=== PATIENT | female | born 1970 | race Caucasian/White ===

== ENCOUNTER 2016-07-05 19:41 | Inpatient (IN) | payer MEDICARE, OTHER ==
[2016-07-05 21:44] LABS: CH 30.9; CHCM 33.8; HDW 3.17; HGB 11.3 gm/dL (11.4-16.0); MCH 30.5 pg (25.0-35.0); MCHC 33.2 g/dL (31.0-37.0); MCV 91.8 fL (80.0-100.0); RDW 14.7 % (11.5-15.5); WBC 6.5 k/uL (3.8-10.6)
[2016-07-05 21:54] LABS: ALT 25 U/L (9-52); AST 35 U/L (14-36); Alkaline Phosphatase 119 U/L (38-126); Anion Gap 8 mmol/L; Blood Urea Nitrogen 11 mg/dL (7-17); Calcium 9.5 mg/dL (8.4-10.2); Carbon Dioxide 34 mmol/L (22-30); Chloride 97 mmol/L (98-107); Glucose 87 mg/dL (74-99); Non-African American GFR(MDRD) 56 (>60 ml/min/1.73 sqM); Sodium 139 mmol/L (137-145); Total Bilirubin 0.7 mg/dL (0.2-1.3); Total Protein 6.2 g/dL (6.3-8.2)
[2016-07-05 21:57] LABS: Potassium 2.9 mmol/L (3.5-5.1)
[2016-07-05] MEDS ORDERED: POTASSIUM CHLORIDE ER 20 MEQ TAB.ER PO STA (22:39)
[2016-07-05] MEDS ORDERED: ACETAMINOPHEN TAB 325 MG TAB PO PRN (22:46)
[2016-07-05] MEDS ORDERED: NALOXONE 0.4 MG/ML 1 ML VIAL IV PRN (22:46)
--- NOTE | 2016-07-05 22:46 | ED ---
General Adult HPI - General Chief complaint: Skin/Abscess/Foreign Body Stated complaint: Rash Time Seen by Provider: 07/05/16 21:50 Source: patient, EMS, RN notes reviewed Mode of arrival: EMS Limitations: no limitations - History of Present Illness Initial comments: Patient is a pleasant 46-year-old female presenting to the emergency department with concerns regarding rash. Patient is a poor historian. Patient states rash has come and gone for years. Patient plays of discomfort associated with this. Patient states she had a fever earlier today. Patient is nonambulatory secondary to weight and knee problems. - Related Data Home Medications Medication Instructions Recorded Confirmed Albuterol Nebulized [Ventolin 2.5 mg INHALATION RT-TID 08/17/14 07/05/16 Nebulized] Folic Acid 1 mg PO HS 10/14/14 07/05/16 Cyanocobalamin [Vitamin B-12] 500 mcg PO HS 06/06/15 07/05/16 Cranberry Conc/C/Bacill Coag 1 tab PO DAILY 07/13/15 07/05/16 [Cranberry Tablet] Na Phos,M-B/Na Phos,Di-Ba [Fleet 133 ml RECTAL DAILY PRN 07/13/15 07/05/16 Adult] Potassium Chloride [K-Tab ER] 20 meq PO BID 07/13/15 07/05/16 Sennosides-Docusate Sodium 2 tab PO HS 07/13/15 07/05/16 [Senokot-S] Previous Rx's Medication Instructions Recorded Bisacodyl [Dulcolax] 5 mg PO DAILY PRN #0 tablet.dr 06/09/15 Cyclobenzaprine [Flexeril] 10 mg PO BID tab 06/09/15 Famotidine [Pepcid] 20 mg PO DAILY tab 06/09/15 Furosemide [Lasix] 40 mg PO BID@0900,1600 tab 06/09/15 buPROPion HCL [Wellbutrin] 100 mg PO BID #60 tab 06/09/15 Ascorbic Acid [Vitamin C] 500 mg PO DAILY tab 07/15/15 Nystatin 100,000 Unit/gm Powd 1 applic TOPICAL TID applic 07/15/15 [Mycostatin Powder] Oxymorphone HCl [Opana ER] 40 mg PO Q8HR #90 tab.er.12h 07/15/15 Pregabalin [Lyrica] 75 mg PO HS #30 cap 07/15/15 cefTRIAXone [Rocephin] 2,000 mg IVPB HS #18 vial 07/15/15 oxyCODONE HCL/ACETAMINOPHEN 1 tab PO Q4H PRN #90 tablet 07/15/15 [Endocet 10-325 mg] Allergies Allergy/AdvReac Type Severity Reaction Status Date / Time aspirin Allergy Unknown Verified 07/05/16 19:59 ciprofloxacin [From Cipro] Allergy Unknown Verified 07/05/16 19:59 ciprofloxacin HCl Allergy Unknown Verified 07/05/16 19:59 [From Cipro] levofloxacin [From Levaquin] Allergy Rash/Hives Verified 07/05/16 19:59 Penicillins Allergy Rash/Hives Verified 07/05/16 19:59 Review of Systems ROS Statement: Those systems with pertinent positive or pertinent negative responses have been documented in the HPI. ROS Other: All systems not noted in ROS Statement are negative. 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 complicated by a wrist drop and chronic contractures and muscle atrophy in the left upper extremity, complex regional pain syndrome, reflex sympathetic dystrophy, pancreatitis, morbid obesity, history of hemorrhagic cystitis, history of chronic pain, history of GI bleeds History of Any Multi-Drug Resistant Organisms: None Reported Past Surgical History: Appendectomy, Section, Cholecystectomy Additional Past Surgical History / Comment(s): bowel resection, breast reduction , bilateral ACL repair, left brachial tumor biopsy and lymph node removed Past Anesthesia/Blood Transfusion Reactions: No Reported Reaction Past Psychological History: No Psychological Hx Reported Additional Psychological History / Comment(s): PT SAW DR MALIK DEVRIES IN [facility](PAIN DR) [phone] AFIA TELLEZ . Smoking Status: Never smoker Past Alcohol Use History: None Reported Additional Past Alcohol Use History / Comment(s): Patient states that she is a lifelong nonsmoker. She denies any medical marijuana, marijuana or street drug or alcohol use. Patient lives at home with her and 2 sons that are 20 and 22 years of age. There is a cat in the home. Patient is currently residing at [facility] for rehab. Past Drug Use History: None Reported - Past Family History Daughter(s) Family Medical History: No Reported History (one daughter no major medical ) Father Family Medical History: Diabetes Mellitus Additional Family Medical History / Comment(s): GOUT- ANY OTHER HS UNK Mother Additional Family Medical History / Comment(s): of LUNG DISEASE General Exam Limitations: no limitations General appearance: alert, obese Eye exam: Present: normal appearance Neck exam: Present: normal inspection Respiratory exam: Present: normal lung sounds bilaterally Cardiovascular Exam: Present: regular rate, normal rhythm GI/Abdominal exam: Present: soft. Absent: tenderness Extremities exam: Present: normal inspection Neurological exam: Present: alert. Absent: motor sensory deficit Psychiatric exam: Present: normal affect, normal mood Skin exam: Present: rash (Patient has skin breakdown with erythema consistent with fungal rash with overlying cellulitis diffusely through the skin folds under the breasts and abdomen and legs. Patient also has a large area of cellulitis posterior right leg and buttocks with dry skin.) Course Vital Signs 07/05/16 19:53 Temperature 98.6 F Pulse Rate 96 Respiratory 20 Rate Blood Pressure 110/53 O2 Sat by Pulse 98 Oximetry Medical Decision Making - Medical Decision Making Case was discussed in detail with Dr. Nieto, who is familiar with and will admit his patient. He recommends Kefzol, nystatin powder, potassium replacement , Diflucan, and consult with Dr. Camilo. Patient does not meet sepsis criteria - Lab Data Result diagrams: 07/05/16 21:18 07/05/16 21:18 Lab Results 07/05/16 07/05/16 Range/Units 21:18 21:18 WBC 6.5 (3.8-10.6) k/uL RBC 3.70 L (3.80-5.40) m/uL Hgb 11.3 L (11.4-16.0) gm/dL Hct 34.0 (34.0-46.0) % MCV 91.8 (80.0-100.0) fL MCH 30.5 (25.0-35.0) pg MCHC 33.2 (31.0-37.0) g/dL RDW 14.7 (11.5-15.5) % Plt Count 167 (150-450) k/uL Sodium 139 (137-145) mmol/L Potassium 2.9 L* (3.5-5.1) mmol/L Chloride 97 L (98-107) mmol/L Carbon Dioxide 34 H (22-30) mmol/L Anion Gap 8 mmol/L BUN 11 (7-17) mg/dL Creatinine 1.06 H (0.52-1.04) mg/dL Est GFR (MDRD) Af Amer >60 (>60 ml/min/1.73 sqM) Est GFR (MDRD) Non-Af 56 (>60 ml/min/1.73 sqM) Glucose 87 (74-99) mg/dL Calcium 9.5 (8.4-10.2) mg/dL Total Bilirubin 0.7 (0.2-1.3) mg/dL AST 35 (14-36) U/L ALT 25 (9-52) U/L Alkaline Phosphatase 119 (38-126) U/L Total Protein 6.2 L (6.3-8.2) g/dL Albumin 3.0 L (3.5-5.0) g/dL Disposition Clinical Impression: Cellulitis, Hypokalemia Disposition: ADMITTED IP TO THIS HOSP
[2016-07-05] MEDS ORDERED: FLUCONAZOLE 100 MG TAB PO ONE (22:49)
[2016-07-05 23:11] LABS: Appearance,Urine Clear (Clear); Bilirubin,Urine Negative (Negative); Glucose,Urine (UA) Negative (Negative); Ketones,Urine Negative (Negative); Leukocyte Esterase,Urine Negative (Negative); Nitrite,Urine Negative (Negative); PH, Urine 7.5 (5.0-8.0); Protein,Urine Negative (Negative); Specific Gravity,Urine 1.009 (1.001-1.035); UA Billing (MACRO vs. MICRO) CHEM
[2016-07-06] MEDS ORDERED: 0.9% NACL WITH KCL 20 MEQ/L 1,000 ML IV SCH
[2016-07-06] MEDS: ceFAZolin 2 GM in SODIUM CHLORIDE 0.9% 100 ML IVPB SCH ×4 (00:28→23:39)
[2016-07-06] MEDS: HEPARIN SODIUM,PORCINE 5,000 UNIT/ML 1 ML VIAL SQ SCH ×4 (00:28→23:39)
[2016-07-06] MEDS: NYSTATIN 100,000 UNIT/GM POWD 15 GM TOPICAL SCH ×3 (00:28→21:41)
[2016-07-06] MEDS ORDERED: BISACODYL 5 MG TABLET.DR PO PRN (00:44)
[2016-07-06] MEDS ORDERED: ALBUTEROL NEBULIZED 2.5 MG/3 ML INHALATION PRN (00:44)
[2016-07-06 00:58] VITALS: BMI 60.6
[2016-07-06] MEDS ORDERED: Potassium Replacement Protocol 1 EACH MISC MISCELLANE PRN (01:13)
[2016-07-06] MEDS: CYCLOBENZAPRINE 10 MG TAB PO SCH ×4 (01:27→21:41)
[2016-07-06] MEDS: OXYMORPHONE HCL 5 MG TABLET PO SCH ×4 (01:27→18:41)
[2016-07-06] MEDS: MIRTAZAPINE 15 MG TAB PO SCH ×2 (01:27→21:41)
[2016-07-06] MEDS: POTASSIUM CHLORIDE ER 20 MEQ TAB.ER PO SCH ×5 (02:28→21:41)
[2016-07-06] MEDS: oxyCODONE-APAP 10-325MG 1 EACH TAB PO PRN ×3 (05:08→21:45)
[2016-07-06] MEDS: FUROSEMIDE 40 MG TAB PO SCH ×2 (08:54→21:40)
[2016-07-06] MEDS: MULTIVITAMINS, THERA 1 EACH TAB PO SCH (08:54)
[2016-07-06] MEDS: PANTOPRAZOLE 40 MG TABLET PO SCH (08:54)
[2016-07-06] MEDS: ASCORBIC ACID 500 MG TAB PO SCH ×2 (08:55→21:40)
[2016-07-06] MEDS: LOSARTAN 50 MG TAB PO SCH (08:55)
[2016-07-06] MEDS: buPROPion 100 MG TAB PO SCH ×2 (08:55→21:41)
[2016-07-06] MEDS ORDERED: POTASSIUM CHLORIDE ER 20 MEQ TAB.ER PO SCH (10:00)
[2016-07-06 10:21] LABS: Anion Gap 10 mmol/L; Blood Urea Nitrogen 11 mg/dL (7-17); Calcium 9.9 mg/dL (8.4-10.2); Carbon Dioxide 29 mmol/L (22-30); Chloride 104 mmol/L (98-107); Glucose 79 mg/dL (74-99); Non-African American GFR(MDRD) >60 (>60 ml/min/1.73 sqM); Potassium 3.6 mmol/L (3.5-5.1); Sodium 143 mmol/L (137-145)
[2016-07-06] MEDS ORDERED: TRIAMCINOLONE ACET 0.1% OINTMENT 15 GM TUBE TOPICAL SCH (11:15)
[2016-07-06] MEDS: TRIAMCINOLONE ACET 0.1% OINTMENT 80 GM TUBE TOPICAL SCH ×2 (12:25→21:41)
[2016-07-06] MEDS: methylPREDNISolone SOD SUCCI 40 MG/ML 1 ML VIAL IV SCH ×3 (12:26→23:39)
--- NOTE | 2016-07-06 13:22 | P.HPIM ---
History of Present Illness H&P Date: 07/06/16 Chief Complaint: Severe psoriasis with cellulitis. 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 subsequent she was discharged and she has been home with her for quite sometimes now, patient developed to have an increased rash in her bilateral lower extremity buttock area as well as in between the skin folds with significant irritation to the left buttock areas well and she has been declining and not able to care for herself over the last few weeks since [place] time she stated she ended up coming to the emergency department yesterday at [facility] because of significant rash and she was admitted to the hospital because of severe psoriasis with the element of' cellulitis and skin irritation along with intertrigo in between the skin folds. Patient was seen in consultation by Dr. Camilo she was started on IV antibiotic in the form of Ancef 1 g IV piggyback every 6 hours, she was placed on Diflucan 200 mg orally once every day, we will start the patient on Solu-Medrol 40 mg IV push every 8 hours, we will apply betamethasone cream twice every day to affected area and the we will obtain dermatology consultation. Review of Systems Constitutional: Reports chronic pain, Reports lethargy, Reports malaise, Reports weakness, Reports weight gain, Denies anorexia, Denies chronic headaches Eyes: denies blurred vision, denies bulging eye, denies decreased vision, denies diplopia Ears: deny: decreased hearing Ears, nose, mouth and throat: Denies dysphagia, Denies neck fullness/pressure, Denies neck lump, Denies swelling in throat, Denies sore throat Cardiovascular: Denies chest pain, Denies dyspnea on exertion, Denies edema, Denies high blood pressure, Denies rapid heart beat, Denies shortness of breath , Denies syncope Respiratory: Reports sleep apnea, Reports snoring, Denies congestion, Denies cough, Denies cough with sputum, Denies home oxygen, Denies wheezing Gastrointestinal: Denies abdominal pain, Denies bloating, Denies BRBPR, Denies change in bowel habits, Denies heartburn, Denies hematemesis, Denies melena, Denies nausea, Denies vomiting Genitourinary: Reports dysuria, Reports nocturia Musculoskeletal: Reports low back pain, Reports shooting arm pain, Denies myalgias Musculoskeletal: left: hand pain, hand stiffness, hand swelling, shoulder stiffness, wrist pain, wrist stiffness, wrist swelling, absent: ankle pain, ankle stiffness, ankle swelling, elbow pain, elbow stiffness, elbow swelling, foot pain, foot stiffness, foot swelling, hip pain, hip stiffness, hip swelling , knee pain, knee stiffness, knee swelling, shoulder pain Integumentary: Reports rash (There is an erythematous base with a similar rash in the bilateral buttock areas, behind the knees, and the skin folds.), Reports sores, Reports wounds (Left buttock area), Denies pruritus Neurological: Reports motor disturbance, Reports sensory deficit, Reports tingling, Denies numbness, Denies weakness Psychiatric: Denies anxiety, Denies depression Endocrine: Denies fatigue, Denies weight change Past Medical History Past Medical History: Asthma, COPD, Fibromyalgia, Hyperlipidemia, Osteoarthritis (OA), Renal Disease, Sleep Apnea/CPAP/BIPAP Additional Past Medical History / Comment(s): kidney stones, 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 complicated by a wrist drop and chronic contractures and muscle atrophy in the left upper extremity, complex regional pain syndrome, reflex sympathetic dystrophy, pancreatitis, morbid obesity, history of hemorrhagic cystitis, history of chronic pain, history of GI bleeds History of Any Multi-Drug Resistant Organisms: None Reported Past Surgical History: Appendectomy, Section, Cholecystectomy Additional Past Surgical History / Comment(s): bowel resection, breast reduction , bilateral ACL repair, left brachial tumor biopsy and lymph node removed, bilateral knee surgery Past Anesthesia/Blood Transfusion Reactions: No Reported Reaction Past Psychological History: No Psychological Hx Reported Additional Psychological History / Comment(s): PT SAW DR MALIK DEVRIES IN [facility](PAIN DR) [phone] AFIA TELLEZ . Smoking Status: Never smoker Past Alcohol Use History: None Reported Additional Past Alcohol Use History / Comment(s): Patient states that she is a lifelong nonsmoker. She denies any medical marijuana, marijuana or street drug or alcohol use. Patient lives at home with her and 2 sons that are 20 and 22 years of age. There is a cat in the home. Patient is currently residing at [facility] for rehab. Past Drug Use History: None Reported - Past Family History Daughter(s) Family Medical History: No Reported History Father Family Medical History: Diabetes Mellitus Additional Family Medical History / Comment(s): GOUT- ANY OTHER HS UNK Mother Additional Family Medical History / Comment(s): of LUNG DISEASE Medications and Allergies Home Medications Medication Instructions Recorded Confirmed Type Albuterol Nebulized [Ventolin 2.5 mg INHALATION RT-Q6H PRN 08/17/14 07/06/16 History Nebulized] Cranberry Conc/C/Bacill Coag 1 tab PO DAILY 07/13/15 07/06/16 History [Cranberry Tablet] Potassium Chloride [K-Tab ER] 20 meq PO BID 07/13/15 07/06/16 History Cyclobenzaprine [Flexeril] 10 mg PO TID 07/05/16 07/06/16 History Furosemide [Lasix] 40 mg PO BID 07/05/16 07/06/16 History Losartan Potassium 100 mg PO DAILY 07/05/16 07/06/16 History Mirtazapine [Remeron] 15 mg PO HS 07/05/16 07/06/16 History Multivitamins, Thera [Multivitamin] 1 tab PO DAILY 07/05/16 07/06/16 History Oxymorphone HCl [Opana ER] 40 mg PO Q8H 07/05/16 07/06/16 History oxyCODONE HCL/ACETAMINOPHEN 1 tab PO Q6H PRN 07/05/16 07/06/16 History [Endocet 10-325 mg] Ascorbic Acid [Vitamin C] 500 mg PO BID 07/06/16 07/06/16 History Allergies Allergy/AdvReac Type Severity Reaction Status Date / Time aspirin Allergy Unknown Verified 07/05/16 19:59 ciprofloxacin [From Cipro] Allergy Swelling Verified 07/06/16 00:30 ciprofloxacin HCl Allergy Swelling Verified 07/06/16 00:30 [From Cipro] levofloxacin [From Levaquin] Allergy Rash/Hives Verified 07/05/16 19:59 Penicillins Allergy Rash/Hives Verified 07/05/16 19:59 Physical Exam Vitals: Vital Signs Temp Pulse Pulse Resp BP BP Pulse Ox 07/06/16 07:00 98.5 F 82 18 121/53 92 L 07/05/16 23:23 99.3 F 96 20 128/64 96 Intake and Output 07/05/16 07/06/16 07/06/16 22:59 06:59 14:59 Other: Voiding Method Bedpan # Voids 0 Weight 140.84 kg - Constitutional General appearance: mild distress, obese - EENT Eyes: anicteric sclerae, PERRLA, no ptosis, no scleral icterus, normal appearance ENT: normal oropharynx, no thrush, no tonsillar exudates Ears: bilateral: normal - Neck Neck: no lymphadenopathy, normal ROM, no rigidity, no stridor, no thyromegaly Carotids: bilateral: upstroke normal Thyroid: bilateral: normal size - Respiratory Respiratory: bilateral: diminished, negative: dullness, rales, rhonchi, wheezing , prolonged expiration, prolonged inspiration - Cardiovascular Rhythm: regular Heart sounds: normal: S1, S2 Abnormal Heart Sounds: no systolic murmur, no diastolic murmur, no S3 Gallop, no S4 Gallop - Gastrointestinal General gastrointestinal: normal bowel sounds, soft, no splenomegaly, no tenderness, no umbilical hernia, no ventral hernia - Integumentary Integumentary: rash (Erythema base with a similar rash involving bilateral lower extremity and in between the skin folds.) - Neurologic Neurologic: CNII-XII intact, focal deficits - Musculoskeletal Musculoskeletal: left sided weakness - Psychiatric Psychiatric: A&O x's 3, appropriate affect, intact judgment & insight Results CBC & Chem 7: 07/05/16 21:18 07/06/16 09:34 Labs: Abnormal Lab Results - Last 24 Hours (Table) 07/06/16 Range/Units 00:24 Potassium 2.9 L* (3.5-5.1) mmol/L Thrombosis Risk Factor Assmnt - DVT/VTE Prophylaxis DVT/VTE Prophylaxis: Pharmacologic Prophylaxis ordered, Mechanical Prophylaxis ordered - Choose All That Apply Any of the Below Risk Factors Present?: Yes Each Factor Represents 1 point: Age 41-60 years, Obesity (BMI >25), Swollen legs (current) Other Risk Factors: No Other congenital or acquired thrombophilia - If yes, enter type in comment: No Thrombosis Risk Factor Assessment Total Risk Factor Score: 3 Thrombosis Risk Factor Assessment Level: Moderate Risk Assessment and Plan Plan: Assessment and plan: 1. Diffuse severe psoriasis with cellulitis of bilateral buttocks and lower extremities. Start Ancef 2 g IV piggyback every 6 hours, apply betamethasone cream twice every day, apply anterior dry, start Diflucan 200 mg orally once every day, obtain infectious disease consultation Adipex, obtain dermatology consultation from Dr. Farris, start Solu-Medrol 40 mg IV push every 8 hours. 2. History of hydronephrosis. Was under the care of urology in the past. 3. Supermorbid obesity with BMI 72 with WEI and OHS will continue with CPAP. 4. History of Schwanoma of the left brachial plexus with resultant chronic regional pain syndrome (CRPS).will continue with current pain management with Opana ER and percocet for breakthrough pain. 5. History of Fibromyalgia. Continue current pain management. Continue Flexeril 10 mg orally 3 times every day. 6. Chronic anemia will check iron studies. 7. Depression.will continue with bupropion 100 mg po bid and Remeron 50 mg orally bedtime. 8. Recurrent UTI. We will check urinalysis. 9. 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 10.Chronic pain syndrome.will continue with current pain management. 11.VT prophylaxis.will continue with heparin 5000 units subcutaneously every 8 hours. 12. GI prophylaxis.will continue with protonix 40 mg po daily. 13.Full code. 14.Admitted to inpatient estimated length of stay 3 days.
--- NOTE | 2016-07-06 15:16 | XR ---
EXAMINATION TYPE: XR chest 2V DATE OF EXAM: 07/06/2016 3:11 PM COMPARISON: Prior chest x-ray 12 July 2015 HISTORY: Extended-care facility placement TECHNIQUE: Frontal and lateral views of the chest are obtained. FINDINGS: The heart remains enlarged. No pneumothorax or pleural effusion. Minimal patchy basilar de nsity may reflect atelectasis rather than pneumonia. Exam is somewhat technically limited due to ute ent body habitus. IMPRESSION: Cardiomegaly. Possible basilar atelectasis, correlate to exclude pneumonia.
--- NOTE | 2016-07-06 19:58 | P.CONS ---
History of Present Illness - Reason for Consult Consult date: 07/06/16 - Chief Complaint Weakness - History of Present Illness This is a 46 year-old patient who is currently residing at [facility] for physical therapy and rehabilitation. She had hospitalization at [facility] last year at which time she was treated for acute on chronic respiratory failure secondary to hypercapnic respiratory failure from morbid obesity obesity hypoventilation syndrome with pickwickian syndrome with history of bronchial asthma and acute on chronic diastolic heart failure. Patient was also found at that time to have an enterococcus UTI and was discharged to the detention with doxycycline. Patient developed urinary frequency and dysuria along with a fever 101.3 and was started on Ceftin 500 mg twice daily. However, patient became tachypneic with mental status changes and temperature of 102.3 with tachycardia and was transferred to [facility] emergency center for evaluation. On presentation, her temperature was 101.5 and leukocytosis at 12.8. White count is now at 10.8 GFR is greater than 60. Hemoglobin noted 9.8. Total bilirubin is 1.9 with normal liver function tests. Albumin 2.8. Urinalysis on this admission as well as the previous outpatient specimen positive for urinary tract infection. Urine culture from last year positive for Proteus mirabilis resistant to Macrodantin and tetracycline. Subsequently, patient's blood culture returned positive for gram-negative rods. 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 Apparently patient had been discharged from the extended care facility with the care of her family in the home. There apparently is a as well as some caregivers. She utilizes a slide board to get from bed to chair and commode does not have a Christopher lift. Relates that she started having increasing difficulties with her skin and generalized malaise no concerns to sepsis was admitted to hospital. Infectious disease consultation was requested. Review of Systems Constitutional: Feels poorly overall. He has fatigue chills poor appetite but no rigors. Eyes: denies blurred vision, denies pain Ears, nose, mouth and throat: Denies headache, Denies sore throat Cardiovascular: Denies chest pain, Denies shortness of breath Respiratory: Denies cough Gastrointestinal: Reports nausea, Denies abdominal pain, Denies diarrhea, Denies vomiting Genitourinary: Reports no dysuria, Reports urgency, Reports urinary frequency, Denies hematuria Musculoskeletal: Denies myalgias Integumentary: Has extensive psoriatic rash that is now much worse and erythematous Neurological: Denies numbness, Denies weakness Psychiatric: Denies anxiety, Denies depression Endocrine: Denies fatigue, Denies weight change Past Medical History Past Medical History: Asthma, COPD, Fibromyalgia, Hyperlipidemia, Osteoarthritis (OA), Renal Disease, Sleep Apnea/CPAP/BIPAP Additional Past Medical History / Comment(s): kidney stones, 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 complicated by a wrist drop and chronic contractures and muscle atrophy in the left upper extremity, complex regional pain syndrome, reflex sympathetic dystrophy, pancreatitis, morbid obesity, history of hemorrhagic cystitis, history of chronic pain, history of GI bleeds History of Any Multi-Drug Resistant Organisms: None Reported Past Surgical History: Appendectomy, Section, Cholecystectomy Additional Past Surgical History / Comment(s): bowel resection, breast reduction , bilateral ACL repair, left brachial tumor biopsy and lymph node removed, bilateral knee surgery Past Anesthesia/Blood Transfusion Reactions: No Reported Reaction Past Psychological History: No Psychological Hx Reported Additional Psychological History / Comment(s): PT SAW DR MALIK DEVRIES IN [facility](PA[address] DR) [phone] AFIA TELLEZ . Smoking Status: Never smoker Past Alcohol Use History: None Reported Additional Past Alcohol Use History / Comment(s): Patient states that she is a lifelong nonsmoker. She denies any medical marijuana, marijuana or street drug or alcohol use. Patient lives at home with her and 2 sons that are 20 and 22 years of age. There is a cat in the home. Patient is currently residing at [facility] for rehab. Past Drug Use History: None Reported - Past Family History Daughter(s) Family Medical History: No Reported History Father Family Medical History: Diabetes Mellitus Additional Family Medical History / Comment(s): GOUT- ANY OTHER HS UNK Mother Additional Family Medical History / Comment(s): of LUNG DISEASE Medications and Allergies Home Medications and Allergies Comment(s): Current Medications Acetaminophen (Tylenol Tab) 650 mg PO Q6HR PRN PRN Reason: Mild Pain or Fever > 100.5 Last Admin: 07/05/16 23:23 Dose: 650 mg Albuterol Sulfate (Ventolin Nebulized) 2.5 mg INHALATION RT-Q6H PRN PRN Reason: Shortness Of Breath Ascorbic Acid (Vitamin C) 500 mg PO BID [facility] Last Admin: 07/06/16 08:55 Dose: 500 mg Bisacodyl (Dulcolax) 5 mg PO DAILY PRN PRN Reason: Constipation Bupropion HCl (Wellbutrin) 100 mg PO BID [facility] Last Admin: 07/06/16 08:55 Dose: 100 mg Cyclobenzaprine HCl (Flexeril) 10 mg PO TID [facility] Last Admin: 07/06/16 17:26 Dose: 10 mg Fluconazole (Diflucan) 150 mg PO HS [facility] Furosemide (Lasix) 40 mg PO BID [facility] Last Admin: 07/06/16 08:54 Dose: 40 mg Heparin Sodium (Porcine) (Heparin) 5,000 unit SQ Q8HR [facility] Last Admin: 07/06/16 17:25 Dose: 5,000 unit Cefazolin Sodium 2 gm/ Sodium (Chloride) 100 mls @ 100 mls/hr IVPB Q8HR [facility] Last Admin: 07/06/16 17:25 Dose: 100 mls/hr Losartan Potassium (Cozaar) 100 mg PO DAILY [facility] Last Admin: 07/06/16 08:55 Dose: 100 mg Methylprednisolone Sodium Succinate (Solu-Medrol) 40 mg IV Q8HR [facility] Last Admin: 07/06/16 17:26 Dose: 40 mg Mirtazapine (Remeron) 15 mg PO HS [facility] Last Admin: 07/06/16 01:27 Dose: 15 mg Miscellaneous Information (Potassium Per Protocol) 1 each MISCELLANE DAILY PRN ; Protocol PRN Reason: Per Protocol Multivitamins (Theragran) 1 each PO DAILY [facility] Last Admin: 07/06/16 08:54 Dose: 1 each Naloxone HCl (Narcan) 0.2 mg IV Q2M PRN PRN Reason: Opioid Reversal Nystatin (Mycostatin Powder) 1 applic TOPICAL BID [facility] Last Admin: 07/06/16 09:38 Dose: 1 applic Oxycodone/Acetaminophen (Percocet 10-325) 1 each PO Q6H PRN PRN Reason: Moderate Pain Last Admin: 07/06/16 13:57 Dose: 1 each Oxymorphone HCl (Opana) 30 mg PO Q6H [facility] Last Admin: 07/06/16 18:41 Dose: 30 mg Pantoprazole Sodium (Protonix) 40 mg PO DAILY [facility] Last Admin: 07/06/16 08:54 Dose: 40 mg Potassium Chloride (K-Dur 20) 20 meq PO BID [facility] Last Admin: 07/06/16 11:58 Dose: Not Given Triamcinolone Acetonide (Kenalog) 1 applic TOPICAL BID [facility] Last Admin: 07/06/16 12:25 Dose: 1 applic Home Medications Medication Instructions Recorded Confirmed Type Albuterol Nebulized [Ventolin 2.5 mg INHALATION RT-Q6H PRN 08/17/14 07/06/16 History Nebulized] Cranberry Conc/C/Bacill Coag 1 tab PO DAILY 07/13/15 07/06/16 History [Cranberry Tablet] Potassium Chloride [K-Tab ER] 20 meq PO BID 07/13/15 07/06/16 History Cyclobenzaprine [Flexeril] 10 mg PO TID 07/05/16 07/06/16 History Furosemide [Lasix] 40 mg PO BID 07/05/16 07/06/16 History Losartan Potassium 100 mg PO DAILY 07/05/16 07/06/16 History Mirtazapine [Remeron] 15 mg PO HS 07/05/16 07/06/16 History Multivitamins, Thera [Multivitamin] 1 tab PO DAILY 07/05/16 07/06/16 History Oxymorphone HCl [Opana ER] 40 mg PO Q8H 07/05/16 07/06/16 History oxyCODONE HCL/ACETAMINOPHEN 1 tab PO Q6H PRN 07/05/16 07/06/16 History [Endocet 10-325 mg] Ascorbic Acid [Vitamin C] 500 mg PO BID 07/06/16 07/06/16 History Allergies Allergy/AdvReac Type Severity Reaction Status Date / Time aspirin Allergy Unknown Verified 07/05/16 19:59 ciprofloxacin [From Cipro] Allergy Swelling Verified 07/06/16 00:30 ciprofloxacin HCl Allergy Swelling Verified 07/06/16 00:30 [From Cipro] levofloxacin [From Levaquin] Allergy Rash/Hives Verified 07/05/16 19:59 Penicillins Allergy Rash/Hives Verified 07/05/16 19:59 Physical Exam Vitals: Vital Signs Temp Pulse Pulse Resp BP BP BP 07/06/16 14:08 99.2 F 88 20 118/82 07/06/16 07:00 98.5 F 82 18 121/53 07/05/16 23:23 99.3 F 96 20 128/64 Pulse Ox 07/06/16 14:08 95 07/06/16 07:00 92 L 07/05/16 23:23 96 Intake and Output 07/06/16 07/06/16 07/06/16 06:59 14:59 22:59 Intake Total 900 Balance 900 Intake: IV 800 0.9% NaCl with KCl 20 Meq 800 /l 1,000 ml @ 50 mls/hr IV .Q20H ISIAH Rx#: [id number] Intake, IV Titration 100 Amount ceFAZolin 2 gm In Sodium 100 Chloride 0.9% 100 ml @ 100 mls/hr IVPB Q8HR [facility]IA[facility] Rx#:[id number] Other: Voiding Method Bedpan # Voids 0 1 1 # Bowel Movements 0 0 Weight 140.84 kg Gen: This is a morbidly obese 46-year-old female with BMI of 53. Patient is slow to respond to questions but this is close to her baseline. HEENT: Head is atraumatic, normocephalic. Pupils equal, round. Sclerae is anicteric. Conjunctiva slightly pale. Mucous members of the mouth are very dry. Patient is edentulous. NECK: Short and thick. Supple. No JVD. No lymphadenopathy. No thyromegaly. LUNGS: Diminished bilaterally. No intercostal retractions. HEART: Regular rate and rhythm. Systolic murmur. ABDOMEN: Morbidly obese. Soft. Bowel sounds are present. No masses. Mild generalized tenderness. EXTREMITIES: No pedal edema. No calf tenderness. Dorsalis pedis +2 bilaterally. NEUROLOGICAL: Patient is awake, alert and oriented x3. Cranial nerves 2 through 12 are grossly intact. Bilateral hand deputy director of nursing are weak more so to the left secondary to complex regional pain syndrome. Generalized weakness noted. Skin: Patient has evidence of the extensive psoriasis involves her scalp as well as her face chest abdomen back upper and lower extremities. The skin is thickened. It is dry and plaque-like. There are some significant erythema especially in the lower extremities. No connie open lesions are seen on the upper or lower extremities. However with the nurse present she is rolled it has evidence of some pressure ulceration to her buttocks. Please see the nursing photography for the pictorial documentation of the bilateral buttocks stage III pressure ulcerations with some bleeding. It is tender to touch. She is obese and has many skin folds. At the base of the folds there is evidence of significant irritation on the abdominal wall and on the thighs there is evidence of weeping and tenderness in distinct erythema. Results CBC & Chem 7: 07/05/16 21:18 07/06/16 16:11 Labs: Abnormal Lab Results - Last 24 Hours (Table) 07/06/16 Range/Units 00:24 Potassium 2.9 L* (3.5-5.1) mmol/L Laboratory Results WBC 6.5 k/uL (3.8-10.6) 07/05/16 21:18 RBC 3.70 m/uL (3.80-5.40) L 07/05/16 21:18 Hgb 11.3 gm/dL (11.4-16.0) L 07/05/16 21:18 Hct 34.0 % (34.0-46.0) 07/05/16 21:18 MCV 91.8 fL (80.0-100.0) 07/05/16 21:18 MCH 30.5 pg (25.0-35.0) 07/05/16 21:18 MCHC 33.2 g/dL (31.0-37.0) 07/05/16 21:18 RDW 14.7 % (11.5-15.5) 07/05/16 21:18 Plt Count 167 k/uL (150-450) 07/05/16 21:18 Sodium 143 mmol/L (137-145) 07/06/16 09:34 Potassium 4.9 mmol/L (3.5-5.1) 07/06/16 16:11 Chloride 104 mmol/L (98-107) 07/06/16 09:34 Carbon Dioxide 29 mmol/L (22-30) 07/06/16 09:34 Anion Gap 10 mmol/L 07/06/16 09:34 BUN 11 mg/dL (7-17) 07/06/16 09:34 Creatinine 0.96 mg/dL (0.52-1.04) 07/06/16 09:34 Est GFR (MDRD) Af Amer >60 (>60 ml/min/1.73 sqM) 07/06/16 09:34 Est GFR (MDRD) Non-Af >60 (>60 ml/min/1.73 sqM) 07/06/16 09:34 Glucose 79 mg/dL (74-99) 07/06/16 09:34 Calcium 9.9 mg/dL (8.4-10.2) 07/06/16 09:34 Total Bilirubin 0.7 mg/dL (0.2-1.3) 07/05/16 21:18 AST 35 U/L (14-36) 07/05/16 21:18 ALT 25 U/L (9-52) 07/05/16 21:18 Alkaline Phosphatase 119 U/L (38-126) 07/05/16 21:18 Total Protein 6.2 g/dL (6.3-8.2) L 07/05/16 21:18 Albumin 3.0 g/dL (3.5-5.0) L 07/05/16 21:18 Urine Color Yellow 07/05/16 22:35 Urine Appearance Clear (Clear) 07/05/16 22:35 Urine pH 7.5 (5.0-8.0) 07/05/16 22:35 Ur Specific [place] 1.009 (1.001-1.035) 07/05/16 22:35 Urine Protein Negative (Negative) 07/05/16 22:35 Urine Glucose (UA) Negative (Negative) 07/05/16 22:35 Urine Ketones Negative (Negative) 07/05/16 22:35 Urine Blood Negative (Negative) 07/05/16 22:35 Urine Nitrate Negative (Negative) 07/05/16 22:35 Urine Bilirubin Negative (Negative) 07/05/16 22:35 Urine Urobilinogen 4.0 mg/dL (<2.0) 07/05/16 22:35 Ur Leukocyte Esterase Negative (Negative) 07/05/16 22:35 Microbiology 07/05/16 22:35 Urine,Catheterized Urine Culture - Preliminary Assessment and Plan (1) Psoriasis universalis Narrative/Plan: 46-year-old woman presents to [facility] increasing weakness. On evidence of significant hypokalemia and this is being addressed with multiple supplements. She has marked worsening of her skin with multiple areas that are open draining and very tender. Cultures are process. His first antibiotic therapy most recent cultures had Proteus which is a very susceptible organism and cefazolin 2 g IV piggyback every 8 hours being utilized which he gives treatment for routine skin pathogen such as strep and staph as well as her Proteus. The patient is in significant need of extensive bathing and showering. This will help reduce the amount of bioburden on her skin as well as a severe amount of scaling. Michelle will be attempted. Triamcinolone will be applied to the affected areas. 2 the very tender folds the [place] being placed as well as some antifungal powder. She has received oral antifungal therapy also. For the buttocks pressure ulcerations the thick zinc product is being applied twice per day and as needed . Air mattress requested Will evaluate her protein status and supplement as needed. Unclear if she follows with dermatology in the outpatient setting with her extensive disease concerned to potential other aggressive therapies may be indicated once she has improvement of underlying infectious problems. Status: Acute (2) Anemia Status: Acute (3) Hypokalemia Status: Acute (4) Schwannoma Status: Chronic
[2016-07-06] MEDS: FLUCONAZOLE 150 MG TAB PO SCH (21:41)
[2016-07-07] MEDS: OXYMORPHONE HCL 5 MG TABLET PO SCH ×4 (00:48→19:43)
[2016-07-07] MEDS: oxyCODONE-APAP 10-325MG 1 EACH TAB PO PRN ×3 (04:41→17:14)
[2016-07-07] MEDS: LOSARTAN 50 MG TAB PO SCH (07:35)
[2016-07-07] MEDS: ASCORBIC ACID 500 MG TAB PO SCH ×2 (07:35→21:09)
[2016-07-07] MEDS: methylPREDNISolone SOD SUCCI 40 MG/ML 1 ML VIAL IV SCH ×3 (07:35→23:16)
[2016-07-07] MEDS: PANTOPRAZOLE 40 MG TABLET PO SCH (07:35)
[2016-07-07] MEDS: HEPARIN SODIUM,PORCINE 5,000 UNIT/ML 1 ML VIAL SQ SCH ×3 (07:35→23:16)
[2016-07-07] MEDS: ceFAZolin 2 GM in SODIUM CHLORIDE 0.9% 100 ML IVPB SCH ×3 (07:35→23:16)
[2016-07-07] MEDS: TRIAMCINOLONE ACET 0.1% OINTMENT 80 GM TUBE TOPICAL SCH ×2 (07:36→21:10)
[2016-07-07] MEDS: CYCLOBENZAPRINE 10 MG TAB PO SCH ×3 (07:36→21:10)
[2016-07-07] MEDS: NYSTATIN 100,000 UNIT/GM POWD 15 GM TOPICAL SCH ×2 (07:36→21:10)
[2016-07-07] MEDS: buPROPion 100 MG TAB PO SCH ×2 (07:36→21:09)
[2016-07-07] MEDS: FUROSEMIDE 40 MG TAB PO SCH ×2 (07:36→21:09)
[2016-07-07] MEDS: POTASSIUM CHLORIDE ER 20 MEQ TAB.ER PO SCH ×2 (07:36→21:09)
[2016-07-07] MEDS: MULTIVITAMINS, THERA 1 EACH TAB PO SCH (07:36)
--- NOTE | 2016-07-07 16:20 | P.PN ---
Subjective This is a 46-year-old female one of my patient with a previous medical history significant for schwannoma status post resection and the left brachial plexus with resultant left wrist drop and chronic regional pain syndrome (CRPS).was hospitalized here at [facility] on June 06 2015 where she was admitted for acute respiratory hypoxemic and hypercarbic respiratory failure secondary to Pickwikian syndrome with sever obesity and obesity hupoventilation syndrome and was released to [facility] for physical therapy and rehabilitation subsequently the patient was rehospitalized at [facility] in 2015 because of acute to urinary tract infection with sepsis at that time she was seen by urology because of hydronephrosis which was treated with IV antibiotic subsequent she went to [facility] subsequent she was discharged and she has been home with her for quite sometimes now, patient developed to have an increased rash in her bilateral lower extremity buttock area as well as in between the skin folds with significant irritation to the left buttock areas well and she has been declining and not able to care for herself over the last few weeks since [place] time she stated she ended up coming to the emergency department yesterday at [facility] because of significant rash and she was admitted to the hospital because of severe psoriasis with the element of' cellulitis and skin irritation along with intertrigo in between the skin folds. Patient was seen in consultation by Dr. Camilo she was started on IV antibiotic in the form of Ancef 1 g IV piggyback every 6 hours, she was placed on Diflucan 200 mg orally once every day, we will start the patient on Solu-Medrol 40 mg IV push every 8 hours, we will apply betamethasone cream twice every day to affected area and the we will obtain dermatology consultation. 07/07: Patient is continued on Solu-Medrol decreased to 40 mg every 8 hours. She is continued on Diflucan. She States She Is Eating Okay. She Is Complaining of Some Back Pain. Dermatology Consult Is Pending. Potassium is improved. She has been seen by Dr. Camilo. Blood culture showing no growth at 24 hours and urine culture has been finalized with no growth at 18 hours. Patient is planning for discharge to [facility]. Patient most likely will be ready on Sunday. Objective - Vital Signs Vital signs: Vital Signs Temp 97.9 F 07/07/16 07:00 Pulse 99 07/07/16 07:00 Resp 18 07/07/16 07:00 BP 134/79 07/07/16 07:00 Pulse Ox 95 07/07/16 07:00 Intake & Output 07/06/16 07/07/16 07/07/16 18:59 06:59 18:59 Intake Total 900 1350 Balance 900 1350 Intake: IV 800 0.9% NaCl with KCl 20 Meq 800 /l 1,000 ml @ 50 mls/hr IV .Q20H ISIAH Rx#: [id number] Intake, IV Titration 100 Amount ceFAZolin 2 gm In Sodium 100 Chloride 0.9% 100 ml @ 100 mls/hr IVPB Q8HR ISIAH Rx#:[id number] Oral 1350 Other: Voiding Method Bedpan Bedpan # Voids 1 1 # Bowel Movements 0 - Exam General appearance: mild distress, obese - EENT Eyes: anicteric sclerae, PERRLA, no ptosis, no scleral icterus, normal appearance ENT: normal oropharynx, no thrush, no tonsillar exudates Ears: bilateral: normal - Neck Neck: no lymphadenopathy, normal ROM, no rigidity, no stridor, no thyromegaly Carotids: bilateral: upstroke normal Thyroid: bilateral: normal size - Respiratory Respiratory: bilateral: diminished, negative: dullness, rales, rhonchi, wheezing , prolonged expiration, prolonged inspiration - Cardiovascular Rhythm: regular Heart sounds: normal: S1, S2 Abnormal Heart Sounds: no systolic murmur, no diastolic murmur, no S3 Gallop, no S4 Gallop - Gastrointestinal General gastrointestinal: normal bowel sounds, soft, no splenomegaly, no tenderness, no umbilical hernia, no ventral hernia - Integumentary Integumentary: rash (Erythema base with a similar rash involving bilateral lower extremity and in between the skin folds.) - Neurologic Neurologic: CNII-XII intact, focal deficits - Musculoskeletal Musculoskeletal: left sided weakness - Psychiatric Psychiatric: A&O x's 3, appropriate affect, intact judgment & insight - Labs CBC & Chem 7: 07/05/16 21:18 07/06/16 16:11 Labs: Microbiology - Last 24 Hours (Table) 07/06/16 08:13 Blood Culture - Preliminary Blood No Growth after 24 hours Assessment and Plan Plan: 1. Diffuse severe psoriasis with cellulitis of bilateral buttocks and lower extremities. Start Ancef 2 g IV piggyback every 6 hours, apply betamethasone cream twice every day, apply anterior dry, start Diflucan 200 mg orally once every day, obtain infectious disease consultation [facility]ipe[facility], obtain dermatology consultation from Dr. Farris, start Solu-Medrol 40 mg IV push every [address] Ton tilley. 2. History of hydronephrosis. Was under the care of urology in the past. 3. Supermorbid obesity with BMI 72 with WEI and OHS will continue with CPAP. 4. History of Schwanoma of the left brachial plexus with resultant chronic regional pain syndrome (CRPS).will continue with current pain management with Opana ER and percocet for breakthrough pain. 5. History of Fibromyalgia. Continue current pain management. Continue Flexeril 10 mg orally 3 times every day. 6. Chronic anemia will check iron studies. 7. Depression.will continue with bupropion 100 mg po bid and Remeron 50 mg orally bedtime. 8. Recurrent UTI. We will check urinalysis. 9. 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 10.Chronic pain syndrome.will continue with current pain management. 11.VT prophylaxis.will continue with heparin 5000 units subcutaneously every 8 hours. 12. GI prophylaxis.will continue with protonix 40 mg po daily. 13.Full code. Discharge plan: [facility] on Sunday under the care of Dr. Nieto. Impression and plan of care have been directed as dictated by the signing physician. Elaina Latif nurse practitioner acting as scribe for signing physician. Time with Patient: Greater than 30
[2016-07-07 18:51] LABS: Basophils % (A) 0 %; CH 30.5; CHCM 32.3; Eosinophils % (A) 0 %; HCT 35.9 % (34.0-46.0); HDW 2.98; HGB 11.3 gm/dL (11.4-16.0); Luc # (Auto) 0.08; Luc % (Auto) 1; Lymphocytes % (A) 15 %; MCH 29.9 pg (25.0-35.0); MCHC 31.5 g/dL (31.0-37.0); MCV 94.8 fL (80.0-100.0); Mean Platelet Volume 7.4; Monocytes # (A) 0.2 k/uL (0-1.0); Monocytes % (A) 3 %; Neutrophils # (A) 5.1 k/uL (1.3-7.7); Neutrophils % (A) 80 %; RBC 3.79 m/uL (3.80-5.40); RDW 14.2 % (11.5-15.5); WBC 6.3 k/uL (3.8-10.6); WBC (Perox) 6.91
[2016-07-07 19:06] LABS: ALT 26 U/L (9-52); AST 26 U/L (14-36); Blood Urea Nitrogen 9 mg/dL (7-17); Non-African American GFR(MDRD) >60 (>60 ml/min/1.73 sqM)
[2016-07-07 19:37] LABS: Hepatitis B Surface Ag Index 0.06
[2016-07-07 19:58] LABS: Hepatitis B Surface Antibody Negative (Negative)
[2016-07-07] MEDS: MIRTAZAPINE 15 MG TAB PO SCH (21:09)
[2016-07-07] MEDS: FLUCONAZOLE 150 MG TAB PO SCH (21:10)
--- NOTE | 2016-07-07 21:48 | P.PN ---
Subjective Principal diagnosis: weakness This is a 46 year-old patient who is currently residing at [facility] for physical therapy and rehabilitation. She had hospitalization at [facility] last year at which time she was treated for acute on chronic respiratory failure secondary to hypercapnic respiratory failure from morbid obesity obesity hypoventilation syndrome with pickwickian syndrome with history of bronchial asthma and acute on chronic diastolic heart failure. Patient was also found at that time to have an enterococcus UTI and was discharged to the longterm with doxycycline. Patient developed urinary frequency and dysuria along with a fever 101.3 and was started on Ceftin 500 mg twice daily. However, patient became tachypneic with mental status changes and temperature of 102.3 with tachycardia and was transferred to [facility] emergency center for evaluation. On presentation, her temperature was 101.5 and leukocytosis at 12.8. White count is now at 10.8 GFR is greater than 60. Hemoglobin noted 9.8. Total bilirubin is 1.9 with normal liver function tests. Albumin 2.8. Urinalysis on this admission as well as the previous outpatient specimen positive for urinary tract infection. Urine culture from last year positive for Proteus mirabilis resistant to Macrodantin and tetracycline. Subsequently, patient's blood culture returned positive for gram-negative rods. 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 Apparently patient had been discharged from the extended care facility with the care of her family in the home. There apparently is a as well as some caregivers. She utilizes a slide board to get from bed to chair and commode does not have a Christopher lift. Relates that she started having increasing difficulties with her skin and generalized malaise with concerns to sepsis was admitted to hospital. Objective - Vital Signs Vital signs: Vital Signs Temp 97.8 F 07/07/16 15:00 Pulse 95 07/07/16 15:00 Resp 18 07/07/16 15:00 BP 118/55 07/07/16 15:00 Pulse Ox 99 07/07/16 15:00 Intake & Output 07/07/16 07/07/16 07/08/16 06:59 18:59 06:59 Intake Total 1350 Balance 1350 Intake: Oral 1350 Other: Voiding Method Bedpan Bedpan # Voids 1 2 1 - Exam Gen: This is a morbidly obese 46-year-old female with BMI of 53. Patient is slow to respond to questions but this is close to her baseline. HEENT: Head is atraumatic, normocephalic. Pupils equal, round. Sclerae is anicteric. Conjunctiva slightly pale. Mucous members of the mouth are very dry. Patient is edentulous. NECK: Short and thick. Supple. No JVD. No lymphadenopathy. No thyromegaly. LUNGS: Diminished bilaterally. No intercostal retractions. HEART: Regular rate and rhythm. Systolic murmur. ABDOMEN: Morbidly obese. Soft. Bowel sounds are present. No masses. Mild generalized tenderness. EXTREMITIES: No pedal edema. No calf tenderness. Dorsalis pedis +2 bilaterally. NEUROLOGICAL: Patient is awake, alert and oriented x3. Cranial nerves 2 through 12 are grossly intact. Bilateral hand divider operator are weak more so to the left secondary to complex regional pain syndrome. Generalized weakness noted. Skin: Patient has evidence of the extensive psoriasis involves her scalp as well as her face chest abdomen back upper and lower extremities. The skin is thickened. It is dry and plaque-like. There are some significant erythema especially in the lower extremities. No connie open lesions are seen on the upper or lower extremities. However with the nurse present she is rolled it has evidence of some pressure ulceration to her buttocks. Please see the nursing photography for the pictorial documentation of the bilateral buttocks stage III pressure ulcerations with some bleeding. It is tender to touch. She is obese and has many skin folds. At the base of the folds there is evidence of significant irritation on the abdominal wall and on the thighs there is evidence of weeping and tenderness in distinct erythema. - Labs CBC & Chem 7: 07/07/16 17:37 07/07/16 17:37 Labs: Abnormal Lab Results - Last 24 Hours (Table) 07/07/16 Range/Units 17:37 RBC 3.79 L (3.80-5.40) m/uL Hgb 11.3 L (11.4-16.0) gm/dL Plt Count 147 L (150-450) k/uL Microbiology - Last 24 Hours (Table) 07/06/16 08:13 Blood Culture - Preliminary Blood No Growth after 24 hours Laboratory Results WBC 6.3 k/uL (3.8-10.6) 07/07/16 17:37 RBC 3.79 m/uL (3.80-5.40) L 07/07/16 17:37 Hgb 11.3 gm/dL (11.4-16.0) L 07/07/16 17:37 Hct 35.9 % (34.0-46.0) 07/07/16 17:37 MCV 94.8 fL (80.0-100.0) 07/07/16 17:37 MCH 29.9 pg (25.0-35.0) 07/07/16 17:37 MCHC 31.5 g/dL (31.0-37.0) 07/07/16 17:37 RDW 14.2 % (11.5-15.5) 07/07/16 17:37 Plt Count 147 k/uL (150-450) L 07/07/16 17:37 Neutrophils % 80 % 07/07/16 17:37 Lymphocytes % 15 % 07/07/16 17:37 Monocytes % 3 % 07/07/16 17:37 Eosinophils % 0 % 07/07/16 17:37 Basophils % 0 % 07/07/16 17:37 Neutrophils # 5.1 k/uL (1.3-7.7) 07/07/16 17:37 Lymphocytes # 1.0 k/uL (1.0-4.8) 07/07/16 17:37 Monocytes # 0.2 k/uL (0-1.0) 07/07/16 17:37 Eosinophils # 0.0 k/uL (0-0.7) 07/07/16 17:37 Basophils # 0.0 k/uL (0-0.2) 07/07/16 17:37 Sodium 143 mmol/L (137-145) 07/06/16 09:34 Potassium 4.9 mmol/L (3.5-5.1) 07/06/16 16:11 Chloride 104 mmol/L (98-107) 07/06/16 09:34 Carbon Dioxide 29 mmol/L (22-30) 07/06/16 09:34 Anion Gap 10 mmol/L 07/06/16 09:34 BUN 9 mg/dL (7-17) 07/07/16 17:37 Creatinine 0.73 mg/dL (0.52-1.04) 07/07/16 17:37 Est GFR (MDRD) Af Amer >60 (>60 ml/min/1.73 sqM) 07/07/16 17:37 Est GFR (MDRD) Non-Af >60 (>60 ml/min/1.73 sqM) 07/07/16 17:37 Glucose 79 mg/dL (74-99) 07/06/16 09:34 Calcium 9.9 mg/dL (8.4-10.2) 07/06/16 09:34 Total Bilirubin 0.7 mg/dL (0.2-1.3) 07/05/16 21:18 AST 26 U/L (14-36) 07/07/16 17:37 ALT 26 U/L (9-52) 07/07/16 17:37 Alkaline Phosphatase 119 U/L (38-126) 07/05/16 21:18 Total Protein 6.2 g/dL (6.3-8.2) L 07/05/16 21:18 Albumin 3.0 g/dL (3.5-5.0) L 07/05/16 21:18 Urine Color Yellow 07/05/16 22:35 Urine Appearance Clear (Clear) 07/05/16 22:35 Urine pH 7.5 (5.0-8.0) 07/05/16 22:35 Ur Specific [place] 1.009 (1.001-1.035) 07/05/16 22:35 Urine Protein Negative (Negative) 07/05/16 22:35 Urine Glucose (UA) Negative (Negative) 07/05/16 22:35 Urine Ketones Negative (Negative) 07/05/16 22:35 Urine Blood Negative (Negative) 07/05/16 22:35 Urine Nitrate Negative (Negative) 07/05/16 22:35 Urine Bilirubin Negative (Negative) 07/05/16 22:35 Urine Urobilinogen 4.0 mg/dL (<2.0) 07/05/16 22:35 Ur Leukocyte Esterase Negative (Negative) 07/05/16 22:35 Hep Bs Antigen Negative 07/07/16 17:37 Hep Bs Antibody Negative (Negative) 07/07/16 17:37 Microbiology 07/05/16 22:35 Urine,Catheterized Urine Culture - Final 07/06/16 08:13 Blood Blood Culture - Preliminary No Growth after 24 hours Assessment and Plan (1) Psoriasis universalis Narrative/Plan: 46-year-old woman presents to [facility] increasing weakness. On evidence of significant hypokalemia and this is being addressed with multiple supplements. She has marked worsening of her skin with multiple areas that are open draining and very tender. Cultures are process. His first antibiotic therapy most recent cultures had Proteus which is a very susceptible organism and cefazolin 2 g IV piggyback every 8 hours being utilized which he gives treatment for routine skin pathogen such as strep and staph as well as her Proteus. The patient is in significant need of extensive bathing and showering. This will help reduce the amount of bioburden on her skin as well as a severe amount of scaling. Michelle will be attempted. Triamcinolone will be applied to the affected areas. To the very tender folds the tonto apache being placed as well as some antifungal powder. She has received oral antifungal therapy also. For the buttocks pressure ulcerations the thick zinc product is being applied twice per day and as needed . Air mattress requested Will evaluate her protein status and supplement as needed. Unclear if she follows with dermatology in the outpatient setting with her extensive disease concerned to potential other aggressive therapies may be indicated once she has improvement of underlying infectious problems. Status: Acute (2) Anemia Status: Acute (3) Hypokalemia Status: Acute (4) Schwannoma Status: Chronic
[2016-07-08] MEDS: OXYMORPHONE HCL 5 MG TABLET PO SCH ×4 (01:06→18:00)
[2016-07-08] MEDS: oxyCODONE-APAP 10-325MG 1 EACH TAB PO PRN ×2 (05:20→20:04)
[2016-07-08 08:44] LABS: CH 30.6; CHCM 32.4; HGB 11.4 gm/dL (11.4-16.0); MCH 30.8 pg (25.0-35.0); MCHC 32.5 g/dL (31.0-37.0); MCV 94.7 fL (80.0-100.0); Mean Platelet Volume 8.2; RBC 3.69 m/uL (3.80-5.40); RDW 14.4 % (11.5-15.5); WBC 7.8 k/uL (3.8-10.6)
[2016-07-08 08:50] LABS: Anion Gap 8 mmol/L; Blood Urea Nitrogen 14 mg/dL (7-17); Calcium 10.6 mg/dL (8.4-10.2); Carbon Dioxide 27 mmol/L (22-30); Chloride 108 mmol/L (98-107); Glucose 135 mg/dL (74-99); Non-African American GFR(MDRD) >60 (>60 ml/min/1.73 sqM); Potassium 4.8 mmol/L (3.5-5.1); Sodium 143 mmol/L (137-145)
[2016-07-08] MEDS: LOSARTAN 50 MG TAB PO SCH (09:12)
[2016-07-08] MEDS: methylPREDNISolone SOD SUCCI 40 MG/ML 1 ML VIAL IV SCH ×3 (09:12→20:15)
[2016-07-08] MEDS: HEPARIN SODIUM,PORCINE 5,000 UNIT/ML 1 ML VIAL SQ SCH ×3 (09:12→23:25)
[2016-07-08] MEDS: POTASSIUM CHLORIDE ER 20 MEQ TAB.ER PO SCH ×2 (09:13→20:15)
[2016-07-08] MEDS: CYCLOBENZAPRINE 10 MG TAB PO SCH ×3 (09:13→22:20)
[2016-07-08] MEDS: buPROPion 100 MG TAB PO SCH ×2 (09:13→20:06)
[2016-07-08] MEDS: ASCORBIC ACID 500 MG TAB PO SCH ×2 (09:13→20:06)
[2016-07-08] MEDS: PANTOPRAZOLE 40 MG TABLET PO SCH (09:13)
[2016-07-08] MEDS: MULTIVITAMINS, THERA 1 EACH TAB PO SCH (09:13)
[2016-07-08] MEDS: NYSTATIN 100,000 UNIT/GM POWD 15 GM TOPICAL SCH ×2 (09:14→20:06)
[2016-07-08] MEDS: TRIAMCINOLONE ACET 0.1% OINTMENT 80 GM TUBE TOPICAL SCH ×2 (09:14→20:04)
[2016-07-08] MEDS: FUROSEMIDE 40 MG TAB PO SCH ×2 (09:14→20:06)
[2016-07-08] MEDS: ceFAZolin 2 GM in SODIUM CHLORIDE 0.9% 100 ML IVPB SCH ×3 (10:21→23:25)
--- NOTE | 2016-07-08 16:59 | P.PN ---
Subjective This is a 46-year-old female one of my patient with a previous medical history significant for schwannoma status post resection and the left brachial plexus with resultant left wrist drop and chronic regional pain syndrome (CRPS).was hospitalized here at [facility] on June 06 2015 where she was admitted for acute respiratory hypoxemic and hypercarbic respiratory failure secondary to Pickwikian syndrome with sever obesity and obesity hupoventilation syndrome and was released to [facility] for physical therapy and rehabilitation subsequently the patient was rehospitalized at [facility] back in 2015 because of acute to urinary tract infection with sepsis at that time she was seen by urology because of hydronephrosis which was treated with IV antibiotic subsequent she went to [facility] subsequent she was discharged and she has been home with her for quite sometimes now, patient developed to have an increased rash in her bilateral lower extremity buttock area as well as in between the skin folds with significant irritation to the left buttock areas well and she has been declining and not able to care for herself over the last few weeks since Stephani time she stated she ended up coming to the emergency department yesterday at [facility] because of significant rash and she was admitted to the hospital because of severe psoriasis with the element of' cellulitis and skin irritation along with intertrigo in between the skin folds. Patient was seen in consultation by Dr. Camilo she was started on IV antibiotic in the form of Ancef 1 g IV piggyback every 6 hours, she was placed on Diflucan 200 mg orally once every day, we will start the patient on Solu-Medrol 40 mg IV push every 8 hours, we will apply betamethasone cream twice every day to affected area and the we will obtain dermatology consultation. 07/07: Patient is continued on Solu-Medrol decreased to 40 mg every 8 hours. She is continued on Diflucan. She States She Is Eating Okay. She Is Complaining of Some Back Pain. Dermatology Consult Is Pending. Potassium is improved. She has been seen by Dr. Camilo. Blood culture showing no growth at 24 hours and urine culture has been finalized with no growth at 18 hours. Patient is planning for discharge to [facility]. Patient most likely will be ready on Sunday. 07/08:. Epigastric pain for main complaint today. No vomiting. No diarrhea. She feels a bubble in his stomach. Dermatology still has to see her., Patient' s on IV Solu-Medrol 40 mg every 8 hours which would be decreased to 40 mg every 12 Objective - Vital Signs Vital signs: Vital Signs Temp 97.3 F L 07/08/16 15:00 Pulse 90 07/08/16 15:00 Resp 16 07/08/16 15:00 BP 114/63 07/08/16 15:00 Pulse Ox 93 L 07/08/16 15:00 Intake & Output 07/07/16 07/08/16 07/08/16 18:59 06:59 18:59 Intake Total 950 Output Total 400 Balance 950 -400 Intake: Oral 950 Output: Urine 400 Other: Voiding Method Bedpan Bedpan # Voids 2 2 1 - Constitutional General appearance: Present: cooperative, morbidly obese, no acute distress - EENT Eyes: Present: anicteric sclerae, EOMI, dentition normal, normal appearance ENT: Present: hearing grossly normal, NA/AT, normal oropharynx - Neck Neck: Present: normal ROM. Absent: lymphadenopathy, other, rigidity, stridor, thyromegaly - Respiratory Respiratory: bilateral: CTA, negative: diminished, dullness, rales, rhonchi - Cardiovascular Rhythm: regular Heart sounds: normal: S1, S2 Abnormal Heart Sounds: Present: systolic murmur. Absent: diastolic murmur, rub , S3 Gallop, S4 Gallop, click, other - Gastrointestinal General gastrointestinal: Present: normal bowel sounds, soft. Absent: absent bowel sounds, decreased bowel sounds, distended, hepatomegaly, hyperactive bowel sounds, organomegaly, rigid, scaphoid, splenomegaly, tenderness, umbilical hernia, ventral hernia - Integumentary Integumentary: Present: decreased turgor, normal, rash - Neurologic Neurologic: Present: CNII-XII intact - Musculoskeletal Musculoskeletal: Present: strength equal bilaterally - Psychiatric Psychiatric: Present: A&O x's 3, appropriate affect, intact judgment & insight - Labs CBC & Chem 7: 07/08/16 08:06 07/08/16 08:06 Labs: Abnormal Lab Results - Last 24 Hours (Table) 07/07/16 07/08/16 07/08/16 Range/Units 17:37 08:06 08:06 RBC 3.79 L 3.69 L (3.80-5.40) m/uL Hgb 11.3 L (11.4-16.0) gm/dL Plt Count 147 L 141 L (150-450) k/uL Chloride 108 H (98-107) mmol/L Glucose 135 H (74-99) mg/dL Calcium 10.6 H (8.4-10.2) mg/dL Microbiology - Last 24 Hours (Table) 07/06/16 08:13 Blood Culture - Preliminary Blood No Growth after 48 hours Laboratory Results - last 24 hr 07/07/16 07/07/16 07/08/16 17:37 17:37 08:06 WBC 6.3 7.8 RBC 3.79 L 3.69 L Hgb 11.3 L 11.4 Hct 35.9 35.0 MCV 94.8 94.7 MCH 29.9 30.8 MCHC 31.5 32.5 RDW 14.2 14.4 Plt Count 147 L 141 L Neutrophils % 80 Lymphocytes % 15 Monocytes % 3 Eosinophils % 0 Basophils % 0 Neutrophils # 5.1 Lymphocytes # 1.0 Monocytes # 0.2 Eosinophils # 0.0 Basophils # 0.0 Sodium Potassium Chloride Carbon Dioxide Anion Gap BUN 9 Creatinine 0.73 Est GFR (MDRD) Af Amer >60 Est GFR (MDRD) Non-Af >60 Glucose Calcium AST 26 ALT 26 Hep Bs Antigen Negative Hep Bs Antibody Negative 07/08/16 08:06 WBC RBC Hgb Hct MCV MCH MCHC RDW Plt Count Neutrophils % Lymphocytes % Monocytes % Eosinophils % Basophils % Neutrophils # Lymphocytes # Monocytes # Eosinophils # Basophils # Sodium 143 Potassium 4.8 Chloride 108 H Carbon Dioxide 27 Anion Gap 8 BUN 14 Creatinine 0.97 Est GFR (MDRD) Af Amer >60 Est GFR (MDRD) Non-Af >60 Glucose 135 H Calcium 10.6 H AST ALT Hep Bs Antigen Hep Bs Antibody Assessment and Plan Plan: 1. Diffuse severe psoriasis with cellulitis of bilateral buttocks and lower extremities. Start Ancef 2 g IV piggyback every 6 hours, apply betamethasone cream twice every day, apply anterior dry, start Diflucan 200 mg orally once every day, obtain infectious disease consultation Adipex, obtain dermatology consultation from Dr. Farris, decrease Solu-Medrol 40 mg IV push every [address] Camilo appreciated. 2. History of hydronephrosis. Was under the care of urology in the past. 3. Supermorbid obesity with BMI 72 with WEI and OHS will continue with CPAP. 4. History of Schwanoma of the left brachial plexus with resultant chronic regional pain syndrome (CRPS).will continue with current pain management with Opana ER and percocet for breakthrough pain. 5. History of Fibromyalgia. Continue current pain management. Continue Flexeril 10 mg orally 3 times every day. 6. Chronic anemia will check iron studies. 7. Depression.will continue with bupropion 100 mg po bid and Remeron 50 mg orally bedtime. 8. Recurrent UTI. We will check urinalysis. 9. 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 10.Chronic pain syndrome.will continue with current pain management. 11.VT prophylaxis.will continue with heparin 5000 units subcutaneously every 8 hours. 12. GI prophylaxis.will continue with protonix 40 mg po daily. 13.Full code. [facility] the care of Dr. Nieto.
[2016-07-08] MEDS: MAG HYDROX/AL HYDROX/SIMETH 30 ML CUP PO SCH ×2 (18:00→22:19)
[2016-07-08] MEDS: MIRTAZAPINE 15 MG TAB PO SCH (20:06)
[2016-07-08] MEDS: FLUCONAZOLE 150 MG TAB PO SCH (20:06)
[2016-07-08 20:33] LABS: Glucose,Whole Blood 137 mg/dL (75-99)
--- NOTE | 2016-07-08 22:48 | P.PN ---
Subjective Principal diagnosis: weakness This is a 46 year-old patient who is currently residing at [facility] for physical therapy and rehabilitation. She had hospitalization at [facility] last year at which time she was treated for acute on chronic respiratory failure secondary to hypercapnic respiratory failure from morbid obesity obesity hypoventilation syndrome with pickwickian syndrome with history of bronchial asthma and acute on chronic diastolic heart failure. Patient was also found at that time to have an enterococcus UTI and [facility]. Patient developed urinary frequency and dysuria along with a fever 101.3 and was started on Ceftin 500 mg twice daily. However, patient became tachypneic with mental status changes and temperature of 102.3 with tachycardia and was transferred to [facility] emergency center for evaluation. On presentation, her temperature was 101.5 and leukocytosis at 12.8. White count is now at 10.8 GFR is greater than 60. Hemoglobin noted 9.8. Total bilirubin is 1.9 with normal liver function tests. Albumin 2.8. Urinalysis on this admission as well as the previous outpatient specimen positive for urinary tract infection. Urine culture from last year positive for Proteus mirabilis resistant to Macrodantin and tetracycline. Subsequently, patient's blood culture returned positive for gram-negative rods. 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 Apparently patient had been discharged from the extended care facility with the care of her family in the home. There apparently is a as well as some caregivers. She utilizes a slide board to get from bed to chair and commode does not have a Christopher lift. Relates that she started having increasing difficulties with her skin and generalized malaise . patient is feeling considerably better today She's been cleaned up quite a bit.with local wound care antibiotic therapy has allowed significant improvement. Objective - Vital Signs Vital signs: Vital Signs Temp 97.3 F L 07/08/16 15:00 Pulse 100 07/08/16 20:05 Resp 16 07/08/16 15:00 BP 120/60 07/08/16 20:05 Pulse Ox 93 L 07/08/16 15:00 Intake & Output 07/08/16 07/08/16 07/09/16 06:59 18:59 06:59 Intake Total 950 Output Total 400 Balance 950 -400 Intake: Oral 950 Output: Urine 400 Other: Voiding Method Bedpan # Voids 2 1 - Exam Gen: This is a morbidly obese 46-year-old female with BMI of 53. Patient is slow to respond to questions but this is close to her baseline. HEENT: Head is atraumatic, normocephalic. Pupils equal, round. Sclerae is anicteric. Conjunctiva slightly pale. Mucous members of the mouth are very dry. Patient is edentulous. NECK: Short and thick. Supple. No JVD. No lymphadenopathy. No thyromegaly. LUNGS: Diminished bilaterally. No intercostal retractions. HEART: Regular rate and rhythm. Systolic murmur. ABDOMEN: Morbidly obese. Soft. Bowel sounds are present. No masses. Mild generalized tenderness. EXTREMITIES: No pedal edema. No calf tenderness. Dorsalis pedis +2 bilaterally. NEUROLOGICAL: Patient is awake, alert and oriented x3. Cranial nerves 2 through 12 are grossly intact. Bilateral hand fern cutter are weak more so to the left secondary to complex regional pain syndrome. Generalized weakness noted. Skin: Patient has evidence of the extensive psoriasis involves her scalp as well as her face chest abdomen back upper and lower extremities. The skin is thickened. It is dry and plaque-like. There are some significant erythema especially in the lower extremities. No connie open lesions are seen on the upper or lower extremities. However with the nurse present she is rolled it has evidence of some pressure ulceration to her buttocks. Please see the nursing photography for the pictorial documentation of the bilateral buttocks stage III pressure ulcerations with some bleeding. She is obese and has many skin foldsThe extensive erythema denuded skin at her skin folds is now much improved. The connie odor is also improved. The extensive erythema his own was completely resolved. It with the bathing her very dry flaky skin is also improved. Even at the scalp. - Labs CBC & Chem 7: 07/08/16 08:06 07/08/16 08:06 Labs: Abnormal Lab Results - Last 24 Hours (Table) 07/08/16 07/08/16 07/08/16 Range/Units 08:06 08:06 20:13 RBC 3.69 L (3.80-5.40) m/uL Plt Count 141 L (150-450) k/uL Chloride 108 H (98-107) mmol/L Glucose 135 H (74-99) mg/dL POC Glucose (mg/dL) 137 H (75-99) mg/dL Calcium 10.6 H (8.4-10.2) mg/dL Microbiology - Last 24 Hours (Table) 07/06/16 08:13 Blood Culture - Preliminary Blood No Growth after 48 hours Laboratory Results WBC 7.8 k/uL (3.8-10.6) 07/08/16 08:06 RBC 3.69 m/uL (3.80-5.40) L 07/08/16 08:06 Hgb 11.4 gm/dL (11.4-16.0) 07/08/16 08:06 Hct 35.0 % (34.0-46.0) 07/08/16 08:06 MCV 94.7 fL (80.0-100.0) 07/08/16 08:06 MCH 30.8 pg (25.0-35.0) 07/08/16 08:06 MCHC 32.5 g/dL (31.0-37.0) 07/08/16 08:06 RDW 14.4 % (11.5-15.5) 07/08/16 08:06 Plt Count 141 k/uL (150-450) L 07/08/16 08:06 Neutrophils % 80 % 07/07/16 17:37 Lymphocytes % 15 % 07/07/16 17:37 Monocytes % 3 % 07/07/16 17:37 Eosinophils % 0 % 07/07/16 17:37 Basophils % 0 % 07/07/16 17:37 Neutrophils # 5.1 k/uL (1.3-7.7) 07/07/16 17:37 Lymphocytes # 1.0 k/uL (1.0-4.8) 07/07/16 17:37 Monocytes # 0.2 k/uL (0-1.0) 07/07/16 17:37 Eosinophils # 0.0 k/uL (0-0.7) 07/07/16 17:37 Basophils # 0.0 k/uL (0-0.2) 07/07/16 17:37 Sodium 143 mmol/L (137-145) 07/08/16 08:06 Potassium 4.8 mmol/L (3.5-5.1) 07/08/16 08:06 Chloride 108 mmol/L (98-107) H 07/08/16 08:06 Carbon Dioxide 27 mmol/L (22-30) 07/08/16 08:06 Anion Gap 8 mmol/L 07/08/16 08:06 BUN 14 mg/dL (7-17) 07/08/16 08:06 Creatinine 0.97 mg/dL (0.52-1.04) 07/08/16 08:06 Est GFR (MDRD) Af Amer >60 (>60 ml/min/1.73 sqM) 07/08/16 08:06 Est GFR (MDRD) Non-Af >60 (>60 ml/min/1.73 sqM) 07/08/16 08:06 Glucose 135 mg/dL (74-99) H 07/08/16 08:06 POC Glucose (mg/dL) 137 mg/dL (75-99) H 07/08/16 20:13 POC Glu Fisheries Management Biologist AYSHA Yanyd Jimenez 07/08/16 20:13 Calcium 10.6 mg/dL (8.4-10.2) H 07/08/16 08:06 Total Bilirubin 0.7 mg/dL (0.2-1.3) 07/05/16 21:18 AST 26 U/L (14-36) 07/07/16 17:37 ALT 26 U/L (9-52) 07/07/16 17:37 Alkaline Phosphatase 119 U/L (38-126) 07/05/16 21:18 Total Protein 6.2 g/dL (6.3-8.2) L 07/05/16 21:18 Albumin 3.0 g/dL (3.5-5.0) L 07/05/16 21:18 Urine Color Yellow 07/05/16 22:35 Urine Appearance Clear (Clear) 07/05/16 22:35 Urine pH 7.5 (5.0-8.0) 07/05/16 22:35 Ur Specific [place] 1.009 (1.001-1.035) 07/05/16 22:35 Urine Protein Negative (Negative) 07/05/16 22:35 Urine Glucose (UA) Negative (Negative) 07/05/16 22:35 Urine Ketones Negative (Negative) 07/05/16 22:35 Urine Blood Negative (Negative) 07/05/16 22:35 Urine Nitrate Negative (Negative) 07/05/16 22:35 Urine Bilirubin Negative (Negative) 07/05/16 22:35 Urine Urobilinogen 4.0 mg/dL (<2.0) 07/05/16 22:35 Ur Leukocyte Esterase Negative (Negative) 07/05/16 22:35 Hep Bs Antigen Negative 07/07/16 17:37 Hep Bs Antibody Negative (Negative) 07/07/16 17:37 Microbiology 07/06/16 08:13 Blood Blood Culture - Preliminary No Growth after 48 hours 07/05/16 22:35 Urine,Catheterized Urine Culture - Final Assessment and Plan (1) Psoriasis universalis Narrative/Plan: 46-year-old woman presents to [facility] increasing weakness. On evidence of significant hypokalemia and this is being addressed with multiple supplements. She has marked worsening of her skin with multiple areas that are open draining and very tender. Cultures are process. His first antibiotic therapy most recent cultures had Proteus which is a very susceptible organism and cefazolin 2 g IV piggyback every 8 hours being utilized which he gives treatment for routine skin pathogen such as strep and staph as well as her Proteus. The patient is in significant need of extensive bathing and showering. This will help reduce the amount of bioburden on her skin as well as a severe amount of scaling. Michelle will be attempted. Triamcinolone will be applied to the affected areas. To the very tender folds the ute being placed as well as some antifungal powder. She has received oral antifungal therapy also. For the buttocks pressure ulcerations the thick zinc product is being applied twice per day and as needed . Air mattress there is been a marked improvement because will not be planning on sonya will transition to oral antibiotic therapy to cephalexin. Unclear if she follows with dermatology in the outpatient setting with her extensive disease consideration to potential other aggressive therapies may be indicated once she has improvement of underlying infectious problems. Status: Acute (2) Anemia Status: Acute (3) Hypokalemia Status: Acute (4) Schwannoma Status: Chronic
[2016-07-09] MEDS: OXYMORPHONE HCL 5 MG TABLET PO SCH ×4 (00:59→18:20)
[2016-07-09] MEDS: ceFAZolin 2 GM in SODIUM CHLORIDE 0.9% 100 ML IVPB SCH ×3 (08:12→23:13)
[2016-07-09] MEDS: HEPARIN SODIUM,PORCINE 5,000 UNIT/ML 1 ML VIAL SQ SCH ×3 (08:14→23:13)
[2016-07-09] MEDS: ASCORBIC ACID 500 MG TAB PO SCH ×2 (08:15→20:07)
[2016-07-09] MEDS: methylPREDNISolone SOD SUCCI 40 MG/ML 1 ML VIAL IV SCH ×2 (08:16→20:06)
[2016-07-09] MEDS: MAG HYDROX/AL HYDROX/SIMETH 30 ML CUP PO SCH ×2 (08:16→12:03)
[2016-07-09] MEDS: FUROSEMIDE 40 MG TAB PO SCH ×2 (08:16→20:07)
[2016-07-09] MEDS: buPROPion 100 MG TAB PO SCH ×2 (08:16→20:07)
[2016-07-09] MEDS: LOSARTAN 50 MG TAB PO SCH (08:16)
[2016-07-09] MEDS: CYCLOBENZAPRINE 10 MG TAB PO SCH ×3 (08:16→21:49)
[2016-07-09] MEDS: TRIAMCINOLONE ACET 0.1% OINTMENT 80 GM TUBE TOPICAL SCH ×2 (08:17→20:07)
[2016-07-09] MEDS: PANTOPRAZOLE 40 MG TABLET PO SCH (08:17)
[2016-07-09] MEDS: POTASSIUM CHLORIDE ER 20 MEQ TAB.ER PO SCH ×2 (08:17→20:06)
[2016-07-09] MEDS: MULTIVITAMINS, THERA 1 EACH TAB PO SCH (08:17)
[2016-07-09] MEDS: NYSTATIN 100,000 UNIT/GM POWD 15 GM TOPICAL SCH ×2 (08:17→20:07)
[2016-07-09] MEDS: oxyCODONE-APAP 10-325MG 1 EACH TAB PO PRN ×2 (08:20→15:24)
[2016-07-09 08:27] LABS: Anion Gap 7 mmol/L; Blood Urea Nitrogen 17 mg/dL (7-17); Calcium 10.5 mg/dL (8.4-10.2); Carbon Dioxide 27 mmol/L (22-30); Chloride 108 mmol/L (98-107); Glucose 133 mg/dL (74-99); Non-African American GFR(MDRD) >60 (>60 ml/min/1.73 sqM); Potassium 4.9 mmol/L (3.5-5.1); Sodium 142 mmol/L (137-145)
--- NOTE | 2016-07-09 15:23 | P.PN ---
Subjective Principal diagnosis: weakness This is a 46 year-old patient who is currently residing at [facility] for physical therapy and rehabilitation. She had hospitalization at [facility] last year at which time she was treated for acute on chronic respiratory failure secondary to hypercapnic respiratory failure from morbid obesity obesity hypoventilation syndrome with pickwickian syndrome with history of bronchial asthma and acute on chronic diastolic heart failure. Patient was also found at that time to have an enterococcus UTI and was discharged to the [facility] with doxycycline. Patient developed urinary frequency and dysuria along with a fever 101.3 and was started on Ceftin 500 mg twice daily. However, patient became tachypneic with mental status changes and temperature of 102.3 with tachycardia and was transferred to [facility] emergency center for evaluation. On presentation, her temperature was 101.5 and leukocytosis at 12.8. White count is now at 10.8 GFR is greater than 60. Hemoglobin noted 9.8. Total bilirubin is 1.9 with normal liver function tests. Albumin 2.8. Urinalysis on this admission as well as the previous outpatient specimen positive for urinary tract infection. Urine culture from last year positive for Proteus mirabilis resistant to Macrodantin and tetracycline. Subsequently, patient's blood culture returned positive for gram-negative rods. 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 Apparently patient had been discharged from the extended care facility with the care of her family in the home. There apparently is a as well as some caregivers. She utilizes a slide board to get from bed to chair and commode does not have a Christopher lift. Relates that she started having increasing difficulties with her skin and generalized malaise . patient is feeling considerably better today She's been cleaned up quite a bit.with local wound care antibiotic therapy has allowed significant improvement. Objective - Vital Signs Vital signs: Vital Signs Temp 98.5 F 07/09/16 15:00 Pulse 100 07/09/16 15:00 Resp 17 07/09/16 15:00 BP 117/55 07/09/16 15:00 Pulse Ox 95 07/09/16 07:00 Intake & Output 07/08/16 07/09/16 07/09/16 18:59 06:59 18:59 Intake Total 990 240 Output Total 400 Balance -400 990 240 Intake: IV 140 0.9% Sodium chloride 140 Intake, IV Titration 100 Amount ceFAZolin 2 gm In Sodium 100 Chloride 0.9% 100 ml @ 100 mls/hr IVPB Q8HR [facility] Rx#:[id number] Oral 990 Output: Urine 400 Other: Voiding Method Bedpan Bedpan # Voids 1 1 1 - Exam Gen: This is a morbidly obese 46-year-old female with BMI of 53. Patient is slow to respond to questions but this is close to her baseline. HEENT: Head is atraumatic, normocephalic. Pupils equal, round. Sclerae is anicteric. Conjunctiva slightly pale. Mucous members of the mouth are very dry. Patient is edentulous. NECK: Short and thick. Supple. No JVD. No lymphadenopathy. No thyromegaly. LUNGS: Diminished bilaterally. No intercostal retractions. HEART: Regular rate and rhythm. Systolic murmur. ABDOMEN: Morbidly obese. Soft. Bowel sounds are present. No masses. Mild generalized tenderness. EXTREMITIES: No pedal edema. No calf tenderness. Dorsalis pedis +2 bilaterally. NEUROLOGICAL: Patient is awake, alert and oriented x3. Cranial nerves 2 through 12 are grossly intact. Bilateral hand ball thread machine tender are weak more so to the left secondary to complex regional pain syndrome. Generalized weakness noted. Skin: Patient has evidence of the extensive psoriasis involves her scalp as well as her face chest abdomen back upper and lower extremities. The skin is thickened. It is dry and plaque-like. There are some significant erythema especially in the lower extremities. No connie open lesions are seen on the upper or lower extremities. However with the nurse present she is rolled it has evidence of some pressure ulceration to her buttocks. Please see the nursing photography for the pictorial documentation of the bilateral buttocks stage III pressure ulcerations with some bleeding. She is obese and has many skin foldsThe extensive erythema denuded skin at her skin folds is now much improved. The connie odor is also improved. The extensive erythema has now almost completely resolved. It with the bathing her very dry flaky skin is also improved. Even at the scalp. - Labs CBC & Chem 7: 07/08/16 08:06 07/09/16 07:40 Labs: Abnormal Lab Results - Last 24 Hours (Table) 07/08/16 07/09/16 Range/Units 20:13 07:40 Chloride 108 H (98-107) mmol/L Glucose 133 H (74-99) mg/dL POC Glucose (mg/dL) 137 H (75-99) mg/dL Calcium 10.5 H (8.4-10.2) mg/dL Microbiology - Last 24 Hours (Table) 07/06/16 08:13 Blood Culture - Preliminary Blood No Growth after 72 hours Laboratory Results WBC 7.8 k/uL (3.8-10.6) 07/08/16 08:06 RBC 3.69 m/uL (3.80-5.40) L 07/08/16 08:06 Hgb 11.4 gm/dL (11.4-16.0) 07/08/16 08:06 Hct 35.0 % (34.0-46.0) 07/08/16 08:06 MCV 94.7 fL (80.0-100.0) 07/08/16 08:06 MCH 30.8 pg (25.0-35.0) 07/08/16 08:06 MCHC 32.5 g/dL (31.0-37.0) 07/08/16 08:06 RDW 14.4 % (11.5-15.5) 07/08/16 08:06 Plt Count 141 k/uL (150-450) L 07/08/16 08:06 Neutrophils % 80 % 07/07/16 17:37 Lymphocytes % 15 % 07/07/16 17:37 Monocytes % 3 % 07/07/16 17:37 Eosinophils % 0 % 07/07/16 17:37 Basophils % 0 % 07/07/16 17:37 Neutrophils # 5.1 k/uL (1.3-7.7) 07/07/16 17:37 Lymphocytes # 1.0 k/uL (1.0-4.8) 07/07/16 17:37 Monocytes # 0.2 k/uL (0-1.0) 07/07/16 17:37 Eosinophils # 0.0 k/uL (0-0.7) 07/07/16 17:37 Basophils # 0.0 k/uL (0-0.2) 07/07/16 17:37 Sodium 142 mmol/L (137-145) 07/09/16 07:40 Potassium 4.9 mmol/L (3.5-5.1) 07/09/16 07:40 Chloride 108 mmol/L (98-107) H 07/09/16 07:40 Carbon Dioxide 27 mmol/L (22-30) 07/09/16 07:40 Anion Gap 7 mmol/L 07/09/16 07:40 BUN 17 mg/dL (7-17) 07/09/16 07:40 Creatinine 0.70 mg/dL (0.52-1.04) 07/09/16 07:40 Est GFR (MDRD) Af Amer >60 (>60 ml/min/1.73 sqM) 07/09/16 07:40 Est GFR (MDRD) Non-Af >60 (>60 ml/min/1.73 sqM) 07/09/16 07:40 Glucose 133 mg/dL (74-99) H 07/09/16 07:40 POC Glucose (mg/dL) 137 mg/dL (75-99) H 07/08/16 20:13 POC Glu Sanitary Inspector Yandy Vega 07/08/16 20:13 Calcium 10.5 mg/dL (8.4-10.2) H 07/09/16 07:40 Total Bilirubin 0.7 mg/dL (0.2-1.3) 07/05/16 21:18 AST 26 U/L (14-36) 07/07/16 17:37 ALT 26 U/L (9-52) 07/07/16 17:37 Alkaline Phosphatase 119 U/L (38-126) 07/05/16 21:18 Total Protein 6.2 g/dL (6.3-8.2) L 07/05/16 21:18 Albumin 3.0 g/dL (3.5-5.0) L 07/05/16 21:18 Urine Color Yellow 07/05/16 22:35 Urine Appearance Clear (Clear) 07/05/16 22:35 Urine pH 7.5 (5.0-8.0) 07/05/16 22:35 Ur Specific [place] 1.009 (1.001-1.035) 07/05/16 22:35 Urine Protein Negative (Negative) 07/05/16 22:35 Urine Glucose (UA) Negative (Negative) 07/05/16 22:35 Urine Ketones Negative (Negative) 07/05/16 22:35 Urine Blood Negative (Negative) 07/05/16 22:35 Urine Nitrate Negative (Negative) 07/05/16 22:35 Urine Bilirubin Negative (Negative) 07/05/16 22:35 Urine Urobilinogen 4.0 mg/dL (<2.0) 07/05/16 22:35 Ur Leukocyte Esterase Negative (Negative) 07/05/16 22:35 Hep Bs Antigen Negative 07/07/16 17:37 Hep Bs Antibody Negative (Negative) 07/07/16 17:37 Microbiology 07/06/16 08:13 Blood Blood Culture - Preliminary No Growth after 72 hours 07/05/16 22:35 Urine,Catheterized Urine Culture - Final Assessment and Plan (1) Psoriasis universalis Narrative/Plan: 46-year-old woman presents to [facility] increasing weakness. On evidence of significant hypokalemia and this is being addressed with multiple supplements. She has marked worsening of her skin with multiple areas that are open draining and very tender. Cultures are process. His first antibiotic therapy most recent cultures had Proteus which is a very susceptible organism and cefazolin 2 g IV piggyback every 8 hours being utilized which he gives treatment for routine skin pathogen such as strep and staph as well as her Proteus. The patient is in significant need of extensive bathing and showering. This will help reduce the amount of bioburden on her skin as well as a severe amount of scaling. Michelle will be attempted. Triamcinolone will be applied to the affected areas. To the very tender folds the wales being placed as well as some antifungal powder. She has received oral antifungal therapy also. For the buttocks pressure ulcerations the thick zinc product is being applied twice per day and as needed Air mattress there is been a marked improvement because will not be planning on long-term IV will transition to oral antibiotic therapy to cephalexin. Unclear if she follows with dermatology in the outpatient setting with her extensive disease consideration to potential other aggressive therapies may be indicated once she has improvement of underlying infectious problems. Status: Acute (2) Anemia Status: Acute (3) Hypokalemia Status: Acute (4) Schwannoma Status: Chronic
[2016-07-09] MEDS: MIRTAZAPINE 15 MG TAB PO SCH (20:06)
[2016-07-09] MEDS: FLUCONAZOLE 150 MG TAB PO SCH (20:07)
--- NOTE | 2016-07-09 20:46 | P.PN ---
Subjective This is a 46-year-old female one of my patient with a previous medical history significant for schwannoma status post resection and the left brachial plexus with resultant left wrist drop and chronic regional pain syndrome (CRPS).was hospitalized here at [facility] on June 06 2015 where she was admitted for acute respiratory hypoxemic and hypercarbic respiratory failure secondary to Pickwikian syndrome with sever obesity and obesity hupoventilation syndrome and was released to [facility] for physical therapy and rehabilitation subsequently the patient was rehospitalized at [facility] back in 2015 because of acute to urinary tract infection with sepsis at that time she was seen by urology because of hydronephrosis which was treated with IV antibiotic subsequent she went to [facility] subsequent she was discharged and she has been home with her for quite sometimes now, patient developed to have an increased rash in her bilateral lower extremity buttock area as well as in between the skin folds with significant irritation to the left buttock areas well and she has been declining and not able to care for herself over the last few weeks since [place] time she stated she ended up coming to the emergency department yesterday at [facility] because of significant rash and she was admitted to the hospital because of severe psoriasis with the element of' cellulitis and skin irritation along with intertrigo in between the skin folds. Patient was seen in consultation by Dr. Camilo she was started on IV antibiotic in the form of Ancef 1 g IV piggyback every 6 hours, she was placed on Diflucan 200 mg orally once every day, we will start the patient on Solu-Medrol 40 mg IV push every 8 hours, we will apply betamethasone cream twice every day to affected area and the we will obtain dermatology consultation. 07/07: Patient is continued on Solu-Medrol decreased to 40 mg every 8 hours. She is continued on Diflucan. She States She Is Eating Okay. She Is Complaining of Some Back Pain. Dermatology Consult Is Pending. Potassium is improved. She has been seen by Dr. Camilo. Blood culture showing no growth at 24 hours and urine culture has been finalized with no growth at 18 hours. Patient is planning for discharge to [facility]. Patient most likely will be ready on Sunday. 07/08:. Epigastric pain for main complaint today. No vomiting. No diarrhea. She feels a bubble in his stomach. Dermatology still has to see her., Patient' s on IV Solu-Medrol 40 mg every 8 hours which would be decreased to 40 mg every 12 07/09: Patient's improving significantly. Including lesions in the back in and bioburden and rash has improved. Salmeterol is discontinued tonight with oral prednisone 50 tomorrow anticipating her transfer to [facility] for skilled rehabilitation she seemed to do better on a skilled ECF rather than home she tends to lay down on the more at home and not motivated to ambulate Objective - Vital Signs Vital signs: Vital Signs Temp 98.5 F 07/09/16 15:00 Pulse 100 07/09/16 15:00 Resp 17 07/09/16 16:00 BP 117/55 07/09/16 15:00 Pulse Ox 95 07/09/16 07:00 Intake & Output 07/09/16 07/09/16 07/10/16 06:59 18:59 06:59 Intake Total 990 340 Balance 990 340 Intake: IV 140 0.9% Sodium chloride 140 Intake, IV Titration 200 Amount ceFAZolin 2 gm In Sodium 200 Chloride 0.9% 100 ml @ 100 mls/hr IVPB Q8HR [facility] Rx#:[id number] Oral 990 Other: Voiding Method Bedpan Bedpan # Voids 1 3 - Constitutional General appearance: Present: cooperative, morbidly obese, no acute distress - EENT Eyes: Present: anicteric sclerae, EOMI, PERRLA, dentition normal, normal appearance ENT: Present: hearing grossly normal, NA/AT, normal oropharynx - Neck Neck: Present: normal ROM - Respiratory Respiratory: bilateral: CTA, negative: diminished, dullness, rales, rhonchi - Cardiovascular Rhythm: regular Heart sounds: normal: S1 - Gastrointestinal General gastrointestinal: Present: normal bowel sounds, soft - Integumentary Integumentary: Present: normal turgor, rash - Neurologic Neurologic: Present: CNII-XII intact - Musculoskeletal Musculoskeletal: Present: generalized weakness, strength equal bilaterally - Psychiatric Psychiatric: Present: A&O x's 3 - Labs CBC & Chem 7: 07/08/16 08:06 07/09/16 07:40 Labs: Abnormal Lab Results - Last 24 Hours (Table) 07/08/16 07/09/16 Range/Units 20:13 07:40 Chloride 108 H (98-107) mmol/L Glucose 133 H (74-99) mg/dL POC Glucose (mg/dL) 137 H (75-99) mg/dL Calcium 10.5 H (8.4-10.2) mg/dL Microbiology - Last 24 Hours (Table) 07/06/16 08:13 Blood Culture - Preliminary Blood No Growth after 72 hours Assessment and Plan Plan: 1. Diffuse severe psoriasis with cellulitis of bilateral buttocks and lower extremities. Start Ancef 2 g IV piggyback every 6 hours, apply betamethasone cream twice every day, apply anterior dry, start Diflucan 200 mg orally once every day, obtain infectious disease consultation obtain dermatology consultation from Dr. Farris, decrease Solu-Medrol 40 mg IV push every 12 hours discontinued to make, oral prednisone starting tomorrow Consult with Dr. Camilo appreciated. 2. History of hydronephrosis. Was under the care of urology in the past. 3. Supermorbid obesity with BMI 72 with WEI and OHS will continue with CPAP. 4. History of Schwanoma of the left brachial plexus with resultant chronic regional pain syndrome (CRPS).will continue with current pain management with Opana ER and percocet for breakthrough pain. 5. History of Fibromyalgia. Continue current pain management. Continue Flexeril 10 mg orally 3 times every day. 6. Chronic anemia will check iron studies. 7. Depression.will continue with bupropion 100 mg po bid and Remeron 50 mg orally bedtime. 8. Recurrent UTI. We will check urinalysis. 9. 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 10.Chronic pain syndrome.will continue with current pain management. 11.VT prophylaxis.will continue with heparin 5000 units subcutaneously every 8 hours. 12. GI prophylaxis.will continue with protonix 40 mg po daily. 13.Full code. [facility] under the care of Dr. Nieto.
[2016-07-10] MEDS: OXYMORPHONE HCL 5 MG TABLET PO SCH ×3 (01:16→14:07)
[2016-07-10 08:11] LABS: Basophils % (A) 0 %; CH 30.2; CHCM 31.7; Eosinophils % (A) 0 %; HDW 2.75; HGB 11.3 gm/dL (11.4-16.0); Hypochromasia Slight; Luc % (Auto) 2; Lymphocytes # (A) 1.3 k/uL (1.0-4.8); Lymphocytes % (A) 20 %; MCHC 31.4 g/dL (31.0-37.0); MCV 95.9 fL (80.0-100.0); Mean Platelet Volume 7.6; Monocytes # (A) 0.4 k/uL (0-1.0); Monocytes % (A) 6 %; Neutrophils # (A) 4.6 k/uL (1.3-7.7); Neutrophils % (A) 72 %; RBC 3.76 m/uL (3.80-5.40); RDW 14.3 % (11.5-15.5); WBC 6.4 k/uL (3.8-10.6); WBC (Perox) 6.53
[2016-07-10 08:23] LABS: Anion Gap 7 mmol/L; Blood Urea Nitrogen 17 mg/dL (7-17); Calcium 10.5 mg/dL (8.4-10.2); Carbon Dioxide 26 mmol/L (22-30); Chloride 107 mmol/L (98-107); Glucose 113 mg/dL (74-99); Non-African American GFR(MDRD) >60 (>60 ml/min/1.73 sqM); Potassium 5.1 mmol/L (3.5-5.1); Sodium 140 mmol/L (137-145)
[2016-07-10] MEDS ORDERED: predniSONE 20 MG TAB PO SCH (09:00)
[2016-07-10] MEDS: ceFAZolin 2 GM in SODIUM CHLORIDE 0.9% 100 ML IVPB SCH ×2 (09:28→15:54)
[2016-07-10] MEDS: HEPARIN SODIUM,PORCINE 5,000 UNIT/ML 1 ML VIAL SQ SCH ×2 (09:28→15:54)
[2016-07-10] MEDS: buPROPion 100 MG TAB PO SCH (09:29)
[2016-07-10] MEDS: CYCLOBENZAPRINE 10 MG TAB PO SCH ×2 (09:29→16:33)
[2016-07-10] MEDS: FUROSEMIDE 40 MG TAB PO SCH (09:30)
[2016-07-10] MEDS: MULTIVITAMINS, THERA 1 EACH TAB PO SCH (09:30)
[2016-07-10] MEDS: LOSARTAN 50 MG TAB PO SCH (09:30)
[2016-07-10] MEDS: POTASSIUM CHLORIDE ER 20 MEQ TAB.ER PO SCH (09:31)
[2016-07-10] MEDS: NYSTATIN 100,000 UNIT/GM POWD 15 GM TOPICAL SCH (09:31)
[2016-07-10] MEDS: PANTOPRAZOLE 40 MG TABLET PO SCH (09:31)
[2016-07-10] MEDS: oxyCODONE-APAP 10-325MG 1 EACH TAB PO PRN (09:33)
[2016-07-10] MEDS: ASCORBIC ACID 500 MG TAB PO SCH (10:11)
[2016-07-10 10:44] VITALS: BP 134/65; PULSE 79; RESP 16; TEMP 96.9
[2016-07-10] MEDS: TRIAMCINOLONE ACET 0.1% OINTMENT 80 GM TUBE TOPICAL SCH (11:28)
--- NOTE | 2016-07-10 12:56 | P.DS ---
Providers Date of admission: 07/05/16 22:46 Expected date of discharge: 07/10/16 Attending physician: Erma Nieto Consults: 07/06/16 11:00 Consult Physician Routine Consulting Provider: Hollis Farris Consult Reason/Comments: rash, possible psoriasis Do you want consulting provider notified?: Yes Primary care physician: Erma Nieto Hospital Course: This is a 46-year-old female one of my patient with a previous medical history significant for schwannoma status post resection and the left brachial plexus with resultant left wrist drop and chronic regional pain syndrome (CRPS).was hospitalized here at [facility] on June 06 2015 where she was admitted for acute respiratory hypoxemic and hypercarbic respiratory failure secondary to Pickwikian syndrome with sever obesity and obesity hupoventilation syndrome and was released to [facility] for physical therapy and rehabilitation subsequently the patient was rehospitalized at [facility] back in 2015 because of acute to urinary tract infection with sepsis at that time she was seen by urology because of hydronephrosis which was treated with IV antibiotic subsequent she went to [facility] subsequent she was discharged and she has been home with her for quite sometimes now, patient developed to have an increased rash in her bilateral lower extremity buttock area as well as in between the skin folds with significant irritation to the left buttock areas well and she has been declining and not able to care for herself over the last few weeks since [place] time she stated she ended up coming to the emergency department yesterday at [facility] because of significant rash and she was admitted to the hospital because of severe psoriasis with the element of' cellulitis and skin irritation along with intertrigo in between the skin folds. Patient was seen in consultation by Dr. Camilo she was started on IV antibiotic in the form of Ancef 1 g IV piggyback every 6 hours, she was placed on Diflucan 200 mg orally once every day, we will start the patient on Solu-Medrol 40 mg IV push every 8 hours, we will apply betamethasone cream twice every day to affected area and the we will obtain dermatology consultation. 07/07: Patient is continued on Solu-Medrol decreased to 40 mg every 8 hours. She is continued on Diflucan. She States She Is Eating Okay. She Is Complaining of Some Back Pain. Dermatology Consult Is Pending. Potassium is improved. She has been seen by Dr. Camilo. Blood culture showing no growth at 24 hours and urine culture has been finalized with no growth at 18 hours. Patient is planning for discharge to [facility]. Patient most likely will be ready on Sunday. 07/08:. Epigastric pain for main complaint today. No vomiting. No diarrhea. She feels a bubble in his stomach. Dermatology still has to see her., Patient' s on IV Solu-Medrol 40 mg every 8 hours which would be decreased to 40 mg every 12 07/09: Patient's improving significantly. Including lesions in the back in and bioburden and rash has improved. Salmeterol is discontinued tonight with oral prednisone 50 tomorrow anticipating her transfer to [facility] for skilled rehabilitation she seemed to do better on a skilled ECF rather than home she tends to lay down on the more at home and not motivated to ambulate 07/10: Dr. Camilo has recommended cephalexin for antibiotic therapy at discharge. She will continue of Prednisone taper. Dermatology consult as an outpatient. Patient will be discharged To ECF today in stable condition. Discharge diagnoses: 1. Diffuse severe psoriasis with cellulitis of bilateral buttocks and lower extremities. 2. History of hydronephrosis. 3. Supermorbid obesity with BMI 72 with WEI and OHS will continue with CPAP. 4. History of Schwanoma of the left brachial plexus with resultant chronic regional pain syndrome (CRPS). 5. History of Fibromyalgia. 6. Chronic anemia of chronic disease 7. Depression recurrent 8. Recurrent UTI. 9. 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 10.Chronic pain syndrome. [facility] under the care of Dr. Nieto. Impression and plan of care have been directed as dictated by the signing physician. Elaina Latif nurse practitioner acting as scribe for signing physician. Patient Condition at Discharge: Stable Plan - Discharge Summary New Discharge Prescriptions: Cephalexin [Keflex] 500 mg PO Q8HR #30 cap Mag Hydrox/Al Hydrox/Simeth [Maalox] 30 ml PO BID #30 cup Oxymorphone HCl [Opana ER] 40 mg PO Q8H #90 tab.er.12h oxyCODONE HCL/ACETAMINOPHEN [Endocet 10-325 mg] 1 tab PO Q6H PRN #120 tablet PRN Reason: Pain predniSONE 0 mg PO DIRECTED #30 tab Discharge Medication List Albuterol Nebulized [Ventolin Nebulized] 2.5 mg INHALATION RT-Q6H PRN 08/17/14 [ History] Bisacodyl [Dulcolax] 5 mg PO DAILY PRN #0 tablet. 06/09/15 [Rx] buPROPion HCL [Wellbutrin] 100 mg PO BID #60 tab 06/09/15 [Rx] Cranberry Conc/C/Bacill Coag [Cranberry Tablet] 1 tab PO DAILY 07/13/15 [History ] Cyclobenzaprine [Flexeril] 10 mg PO TID 07/05/16 [History] Furosemide [Lasix] 40 mg PO BID 07/05/16 [History] Losartan Potassium 100 mg PO DAILY 07/05/16 [History] Mirtazapine [Remeron] 15 mg PO HS 07/05/16 [History] Multivitamins, Thera [Multivitamin] 1 tab PO DAILY 07/05/16 [History] Ascorbic Acid [Vitamin C] 500 mg PO BID 07/06/16 [History] Cephalexin [Keflex] 500 mg PO Q8HR #30 cap 07/10/16 [Rx] Fluconazole [Diflucan] 150 mg PO HS #7 tab 07/10/16 [Rx] Mag Hydrox/Al Hydrox/Simeth [Maalox] 30 ml PO BID #30 cup 07/10/16 [Rx] Nystatin 100,000 Unit/gm Powd [Mycostatin Powder] 1 applic TOPICAL BID #20 applic 07/10/16 [Rx] Oxymorphone HCl [Opana ER] 40 mg PO Q8H #90 tab.er.12h 07/10/16 [Rx] Pantoprazole [Protonix] 40 mg PO DAILY tablet. 07/10/16 [Rx] Potassium Chloride ER [K-Dur 20] 20 meq PO BID tab.er.prt 07/10/16 [Rx] Triamcinolone 0.1% Ointment [Kenalog] 1 applic TOPICAL BID applic 07/10/16 [Rx] oxyCODONE HCL/ACETAMINOPHEN [Endocet 10-325 mg] 1 tab PO Q6H PRN #120 tablet [Rx] predniSONE 0 mg PO DIRECTED #30 tab 07/10/16 [Rx] Follow up Appointment(s)/Referral(s): Erma Nieto MD [Primary Care Provider] - 1 Week (At [facility]) Hollis Farris MD [STAFF PHYSICIAN] - 1 Week Discharge Disposition: TRANSFER TO SNF/ECF
--- NOTE | 2016-07-10 22:13 | P.PN ---
Subjective Principal diagnosis: weakness This is a 46 year-old patient who is currently residing at [facility] for physical therapy and rehabilitation. She had hospitalization at [facility] last year at which time she was treated for acute on chronic respiratory failure secondary to hypercapnic respiratory failure from morbid obesity obesity hypoventilation syndrome with pickwickian syndrome with history of bronchial asthma and acute on chronic diastolic heart failure. Patient was also found at that time to have an enterococcus UTI and was discharged to the skilled nursing with doxycycline. Patient developed urinary frequency and dysuria along with a fever 101.3 and was started on Ceftin 500 mg twice daily. However, patient became tachypneic with mental status changes and temperature of 102.3 with tachycardia and was transferred to [facility] emergency center for evaluation. On presentation, her temperature was 101.5 and leukocytosis at 12.8. White count is now at 10.8 GFR is greater than 60. Hemoglobin noted 9.8. Total bilirubin is 1.9 with normal liver function tests. Albumin 2.8. Urinalysis on this admission as well as the previous outpatient specimen positive for urinary tract infection. Urine culture from last year positive for Proteus mirabilis resistant to Macrodantin and tetracycline. Subsequently, patient's blood culture returned positive for gram-negative rods. 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 Apparently patient had been discharged from the extended care facility with the care of her family in the home. There apparently is a as well as some caregivers. She utilizes a slide board to get from bed to chair and commode does not have a Christopher lift. Relates that she started having increasing difficulties with her skin and generalized malaise . patient is feeling considerably better today She's been cleaned up quite a bit.with local wound care antibiotic therapy has allowed significant improvement. Objective - Vital Signs Vital signs: Vital Signs Temp 96.9 F L 07/10/16 07:00 Pulse 79 07/10/16 07:00 Resp 16 07/10/16 07:00 BP 134/65 07/10/16 07:00 Pulse Ox 94 L 07/10/16 07:00 Intake & Output 07/10/16 07/10/16 07/11/16 06:59 18:59 06:59 Other: Voiding Method Bedpan Bedpan # Voids 1 1 - Exam Gen: This is a morbidly obese 46-year-old female with BMI of 53. Patient is slow to respond to questions but this is close to her baseline. HEENT: Head is atraumatic, normocephalic. Pupils equal, round. Sclerae is anicteric. Conjunctiva slightly pale. Mucous members of the mouth are very dry. Patient is edentulous. NECK: Short and thick. Supple. No JVD. No lymphadenopathy. No thyromegaly. LUNGS: Diminished bilaterally. No intercostal retractions. HEART: Regular rate and rhythm. Systolic murmur. ABDOMEN: Morbidly obese. Soft. Bowel sounds are present. No masses. Mild generalized tenderness. EXTREMITIES: No pedal edema. No calf tenderness. Dorsalis pedis +2 bilaterally. NEUROLOGICAL: Patient is awake, alert and oriented x3. Cranial nerves 2 through 12 are grossly intact. Bilateral hand product craftsman are weak more so to the left secondary to complex regional pain syndrome. Generalized weakness noted. Skin: Patient has evidence of the extensive psoriasis involves her scalp as well as her face chest abdomen back upper and lower extremities. The skin is thickened. It is dry and plaque-like. There are some significant erythema especially in the lower extremities. No connie open lesions are seen on the upper or lower extremities. However with the nurse present she is rolled it has evidence of some pressure ulceration to her buttocks. Please see the nursing photography for the pictorial documentation of the bilateral buttocks stage III pressure ulcerations with some bleeding. She is obese and has many skin foldsThe extensive erythema denuded skin at her skin folds is now much improved. The connie odor is also improved. The extensive erythema has now almost completely resolved. It with the bathing her very dry flaky skin is also improved. Even at the scalp. - Labs CBC & Chem 7: 07/10/16 07:29 07/10/16 07:29 Labs: Abnormal Lab Results - Last 24 Hours (Table) 07/10/16 07/10/16 Range/Units 07:29 07:29 RBC 3.76 L (3.80-5.40) m/uL Hgb 11.3 L (11.4-16.0) gm/dL Plt Count 143 L (150-450) k/uL Glucose 113 H (74-99) mg/dL Calcium 10.5 H (8.4-10.2) mg/dL Microbiology - Last 24 Hours (Table) 07/06/16 08:13 Blood Culture - Preliminary Blood No Growth after 96 hours Laboratory Results WBC 6.4 k/uL (3.8-10.6) 07/10/16 07:29 RBC 3.76 m/uL (3.80-5.40) L 07/10/16 07:29 Hgb 11.3 gm/dL (11.4-16.0) L 07/10/16 07:29 Hct 36.0 % (34.0-46.0) 07/10/16 07:29 MCV 95.9 fL (80.0-100.0) 07/10/16 07:29 MCH 30.0 pg (25.0-35.0) 07/10/16 07:29 MCHC 31.4 g/dL (31.0-37.0) 07/10/16 07:29 RDW 14.3 % (11.5-15.5) 07/10/16 07:29 Plt Count 143 k/uL (150-450) L 07/10/16 07:29 Neutrophils % 72 % 07/10/16 07:29 Lymphocytes % 20 % 07/10/16 07:29 Monocytes % 6 % 07/10/16 07:29 Eosinophils % 0 % 07/10/16 07:29 Basophils % 0 % 07/10/16 07:29 Neutrophils # 4.6 k/uL (1.3-7.7) 07/10/16 07:29 Lymphocytes # 1.3 k/uL (1.0-4.8) 07/10/16 07:29 Monocytes # 0.4 k/uL (0-1.0) 07/10/16 07:29 Eosinophils # 0.0 k/uL (0-0.7) 07/10/16 07:29 Basophils # 0.0 k/uL (0-0.2) 07/10/16 07:29 Hypochromasia Slight 07/10/16 07:29 Sodium 140 mmol/L (137-145) 07/10/16 07:29 Potassium 5.1 mmol/L (3.5-5.1) 07/10/16 07:29 Chloride 107 mmol/L (98-107) 07/10/16 07:29 Carbon Dioxide 26 mmol/L (22-30) 07/10/16 07:29 Anion Gap 7 mmol/L 07/10/16 07:29 BUN 17 mg/dL (7-17) 07/10/16 07:29 Creatinine 0.61 mg/dL (0.52-1.04) 07/10/16 07:29 Est GFR (MDRD) Af Amer >60 (>60 ml/min/1.73 sqM) 07/10/16 07:29 Est GFR (MDRD) Non-Af >60 (>60 ml/min/1.73 sqM) 07/10/16 07:29 Glucose 113 mg/dL (74-99) H 07/10/16 07:29 POC Glucose (mg/dL) 137 mg/dL (75-99) H 07/08/16 20:13 POC Glu Plastic Straightening Roll Operator Yandy Vega 07/08/16 20:13 Calcium 10.5 mg/dL (8.4-10.2) H 07/10/16 07:29 Total Bilirubin 0.7 mg/dL (0.2-1.3) 07/05/16 21:18 AST 26 U/L (14-36) 07/07/16 17:37 ALT 26 U/L (9-52) 07/07/16 17:37 Alkaline Phosphatase 119 U/L (38-126) 07/05/16 21:18 Total Protein 6.2 g/dL (6.3-8.2) L 07/05/16 21:18 Albumin 3.0 g/dL (3.5-5.0) L 07/05/16 21:18 Urine Color Yellow 07/05/16 22:35 Urine Appearance Clear (Clear) 07/05/16 22:35 Urine pH 7.5 (5.0-8.0) 07/05/16 22:35 Ur Specific [place] 1.009 (1.001-1.035) 07/05/16 22:35 Urine Protein Negative (Negative) 07/05/16 22:35 Urine Glucose (UA) Negative (Negative) 07/05/16 22:35 Urine Ketones Negative (Negative) 07/05/16 22:35 Urine Blood Negative (Negative) 07/05/16 22:35 Urine Nitrate Negative (Negative) 07/05/16 22:35 Urine Bilirubin Negative (Negative) 07/05/16 22:35 Urine Urobilinogen 4.0 mg/dL (<2.0) 07/05/16 22:35 Ur Leukocyte Esterase Negative (Negative) 07/05/16 22:35 Hep Bs Antigen Negative 07/07/16 17:37 Hep Bs Antibody Negative (Negative) 07/07/16 17:37 Microbiology 07/06/16 08:13 Blood Blood Culture - Preliminary No Growth after 96 hours 07/05/16 22:35 Urine,Catheterized Urine Culture - Final Assessment and Plan (1) Psoriasis universalis Narrative/Plan: 46-year-old woman presents to [facility] increasing weakness. On evidence of significant hypokalemia and this is being addressed with multiple supplements. She has marked worsening of her skin with multiple areas that are open draining and very tender. Cultures are process. His first antibiotic therapy most recent cultures had Proteus which is a very susceptible organism and cefazolin 2 g IV piggyback every 8 hours being utilized which he gives treatment for routine skin pathogen such as strep and staph as well as her Proteus. The patient is in significant need of extensive bathing and showering. This will help reduce the amount of bioburden on her skin as well as a severe amount of scaling. Michelle will be attempted. Triamcinolone will be applied to the affected areas. To the very tender folds the chefornak being placed as well as some antifungal powder. She has received oral antifungal therapy also. For the buttocks pressure ulcerations the thick zinc product is being applied twice per day and as needed Air mattress there is been a marked improvement Consequently will transition her to oral cephalexin 100 mg every 6 hours for a week. Continue ongoing aggressive skin care and moisturizing and bathing. Hopefully with the rehab she will have a marked improvement of her status. Status: Acute (2) Anemia Status: Acute (3) Hypokalemia Status: Acute (4) Schwannoma Status: Chronic
--- NOTE | 2016-07-11 07:46 | CONS ---
DATE OF CONSULTATION: 07/07/2016 REASON FOR CONSULTATION: Rash, possible psoriasis. HISTORY OF PRESENT ILLNESS: The patient is a 46-year-old female with past medical history of psoriasis who presents today with a scaly erythematous patches and plaques located on her scalp, arms, buttock and legs. The patient also has a well demarcated erythematous malodorous patches under the folded areas of the abdomen and breasts. The patient states she was diagnosed a years ago with psoriasis when she was staying at [facility] for physical therapy. The patient states she was given Triamcinolone topically and reports it was almost clear when she was discharged for home. Patient states that at home she did not follow up for her psoriasis and did not have any topical steroids. The patient states that over the past few months the rash has continued to worsened. She states that her and her tried a bunch of [id number] with no improvement. She was admitted 07/05/2016 for exacerbation of the rash. PAST MEDICAL HISTORY: Asthma, COPD, fibromyalgia, hyperlipidemia, OA, renal disease, sleep apnea and psoriasis. PAST SURGICAL HISTORY: Appendectomy, section and cholecystectomy. MEDICATIONS ON ADMISSION: See chart. ALLERGIES: ASPIRIN, unknown reaction; CIPROFLOXACIN, reaction swelling; LEVOFLOXACIN, reaction rash/hives; PENICILLIN reaction rash/hives. SOCIAL HISTORY: Denies alcohol, tobacco and drug use. REVIEW OF SYSTEMS: CONSTITUTIONAL: Admits to malaise. Denies fever, chills, weakness. HEENT: Eyes, no vision loss, blurry vision, double vision, foreign body sensation. Ears, nose throat, no hearing loss, sneezing, congestion, runny nose or sore throat. SKIN: See HPI. CARDIOVASCULAR: No chest pain, chest pressure or chest discomfort. RESPIRATORY: No short of breath, coughing or sputum. GI: No anorexia, nausea, vomiting or diarrhea. No abdominal pain. NEUROLOGICAL: No headache, dizziness, syncope, ataxia, numbness or tingling of extremities. MUSCULOSKELETAL: Admits to stiffness and pain of many of her joints and chronic back pain. HEMATOLOGICAL: No anemia, bleeding or bruising. PSYCHIATRIC: Denies anxiety or depression. PHYSICAL EXAMINATION: VITAL SIGNS: Temp of 98.5 degrees Fahrenheit. Pulse is 82 beats per minute. Respirations are 18 breaths per minute. Blood pressure is 121/53 mmHg. GENERAL: The patient currently is in no apparent distress. She is alert and oriented x3. She is well nourished, well developed, cooperative, non-anxious or agitated. NEUROLOGICAL: Cranial nerves 2 through 12 are grossly intact. HEAD AND NECK: Head is normocephalic and atraumatic. Neck is supple. Trachea is midline. No JVD noted. LUNGS: Respirations unlabored. EXTREMITIES: No obvious focal neurological defects noted. SKIN: Scaly and crusted erythematous patches and plaques on the scalp, arms, posterior legs, back and buttock. The folded areas of the abdomen and under the breast, the patient has well demarcated erythematous malodorous patches. IMPRESSIONS AND RECOMMENDATIONS: IMPRESSION: 1. Psoriasis. Continue Solu-Medrol 40 mg IV push every 8 hours. Triamcinolone 0.1% cream b.i.d. to affected area of scalp, posterior legs and arms, back and buttock area. The patient will be discharged on topical steroid and solution form should be given for the scalp (not on formulary). Would also like the patient to followup outpatient for methotrexate for better control of her psoriasis. Initial labs were order while patient is in hospital. 2. Intertrigo. Will continue with nystatin powder and air dry. Continue to keep area dry and as clean as possible. MTDD
== END 2016-07-10 16:40 | DRG 602 ==
LOC: EC 19:41 → 4MS4W 22:46
PROVIDERS: ADMIT Internal Medicine; ATTEND Internal Medicine
DX: L03.115 Cellulitis of right lower limb (principal); L89.323 Pressure ulcer of left buttock, stage 3; L89.313 Pressure ulcer of right buttock, stage 3; E66.2 Morbid (severe) obesity with alveolar hypoventilation; F33.9 Major depressive disorder, recurrent, unspecified; G90.512 Complex regional pain syndrome I of left upper limb; Z68.44 Body mass index [BMI] 60.0-69.9, adult; D63.8 Anemia in other chronic diseases classified elsewhere; S50.12XS Contusion of left forearm, sequela; G90.50 Complex regional pain syndrome I, unspecified; L03.317 Cellulitis of buttock; L03.116 Cellulitis of left lower limb; L40.9 Psoriasis, unspecified; E87.6 Hypokalemia; G89.4 Chronic pain syndrome; L30.4 Erythema intertrigo; L40.8 Other psoriasis; M62.432 Contracture of muscle, left forearm; R50.9 Fever, unspecified; M79.7 Fibromyalgia; M62.522 Muscle wasting and atrophy, not elsewhere classified, left upper arm; J45.909 Unspecified asthma, uncomplicated; R10.13 Epigastric pain; M19.90 Unspecified osteoarthritis, unspecified site; J44.9 Chronic obstructive pulmonary disease, unspecified; E78.5 Hyperlipidemia, unspecified; K21.9 Gastro-esophageal reflux disease without esophagitis; M21.332 Wrist drop, left wrist; M54.9 Dorsalgia, unspecified; Z88.6 Allergy status to analgesic agent; Z98.871 Personal history of in utero procedure while a fetus; Z88.1 Allergy status to other antibiotic agents; Z88.0 Allergy status to penicillin; Z87.19 Personal history of other diseases of the digestive system; Z87.442 Personal history of urinary calculi; Z83.3 Family history of diabetes mellitus; Z87.440 Personal history of urinary (tract) infections; Z87.448 Personal history of other diseases of urinary system; Z79.891 Long term (current) use of opiate analgesic; Z79.899 Other long term (current) drug therapy; Z90.49 Acquired absence of other specified parts of digestive tract; Z83.6 Family history of other diseases of the respiratory system; Z87.898 Personal history of other specified conditions; Z86.69 Personal history of other diseases of the nervous system and sense organs
CPT/HCPCS: 36415; 71020; 80048; 80053; 81003; 82565; 84132; 84450; 84460; 84520; 85025; 85027; 86706; 87040; 87086; 87340; 94640; 99284

== ENCOUNTER 2016-07-26 16:37 | Inpatient (IN) | payer MEDICARE, OTHER ==
[2016-07-26] MEDS ORDERED: SODIUM CHLORIDE 0.9% 1,000 ML IV ONE ×2 (16:42)
--- NOTE | 2016-07-26 17:01 | ED ---
Weakness HPI - General Chief complaint: Weakness Stated complaint: Altered Mental Status Time Seen by Provider: 07/26/16 16:37 Source: patient, EMS, RN notes reviewed, old records reviewed Mode of arrival: EMS Limitations: no limitations - History of Present Illness Initial comments: This is a 46-year-old female who is [facility] evaluation for generalized weakness and lethargy going on for about a week. She was being treated for MRSA her urine apparently no reports of nausea vomiting fevers chills sweats no reports of cough or phlegm production or focal weakness. MD Complaint: generalized weakness, lack of energy - Related Data Home Medications Medication Instructions Recorded Confirmed Albuterol Nebulized [Ventolin 2.5 mg INHALATION RT-Q6H PRN 08/17/14 07/26/16 Nebulized] Cranberry Conc/C/Bacill Coag 1 tab PO DAILY 07/13/15 07/26/16 [Cranberry Tablet] Cyclobenzaprine [Flexeril] 10 mg PO TID 07/05/16 07/26/16 Furosemide [Lasix] 40 mg PO BID 07/05/16 07/26/16 Losartan Potassium 100 mg PO DAILY 07/05/16 07/26/16 Mirtazapine [Remeron] 15 mg PO HS 07/05/16 07/26/16 Multivitamins, Thera [Multivitamin] 1 tab PO DAILY 07/05/16 07/26/16 Ascorbic Acid [Vitamin C] 500 mg PO BID 07/06/16 07/26/16 ALPRAZolam [Xanax] 0.25 mg PO BID PRN 07/26/16 07/26/16 Doxycycline Hyclate [Vibramycin] 100 mg PO BID 07/26/16 07/26/16 Metoprolol Tartrate [Lopressor] 25 mg PO BID 07/26/16 07/26/16 Pantoprazole [Protonix] 40 mg PO HS 07/26/16 07/26/16 buPROPion [Wellbutrin] 100 mg PO BID 07/26/16 07/26/16 diphenhydrAMINE [Benadryl] 25 mg PO Q6H PRN 07/26/16 07/26/16 Previous Rx's Medication Instructions Recorded Bisacodyl [Dulcolax] 5 mg PO DAILY PRN #0 tablet. 06/09/15 Mag Hydrox/Al Hydrox/Simeth 30 ml PO BID #30 cup 07/10/16 [Maalox] Nystatin 100,000 Unit/gm Powd 1 applic TOPICAL BID #20 applic 07/10/16 [Mycostatin Powder] Oxymorphone HCl [Opana ER] 40 mg PO Q8H #90 tab.er.12h 07/10/16 Potassium Chloride ER [K-Dur 20] 20 meq PO BID tab.er.prt 07/10/16 Triamcinolone 0.1% Ointment 1 applic TOPICAL BID applic 07/10/16 [Kenalog] oxyCODONE HCL/ACETAMINOPHEN 1 tab PO Q6H PRN #120 tablet 07/10/16 [Endocet 10-325 mg] Allergies Allergy/AdvReac Type Severity Reaction Status Date / Time aspirin Allergy Unknown Verified 07/26/16 17:13 ciprofloxacin [From Cipro] Allergy Swelling Verified 07/26/16 17:13 ciprofloxacin HCl Allergy Swelling Verified 07/26/16 17:13 [From Cipro] levofloxacin [From Levaquin] Allergy Rash/Hives Verified 07/26/16 17:13 Penicillins Allergy Rash/Hives Verified 07/26/16 17:13 Review of Systems ROS Statement: Those systems with pertinent positive or pertinent negative responses have been documented in the HPI. ROS Other: All systems not noted in ROS Statement are negative. Past Medical History Past Medical History: Asthma, COPD, Fibromyalgia, Hyperlipidemia, Osteoarthritis (OA), Renal Disease, Sleep Apnea/CPAP/BIPAP Additional Past Medical History / Comment(s): kidney stones, 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 complicated by a wrist drop and chronic contractures and muscle atrophy in the left upper extremity, complex regional pain syndrome, reflex sympathetic dystrophy, pancreatitis, morbid obesity, history of hemorrhagic cystitis, history of chronic pain, history of GI bleeds History of Any Multi-Drug Resistant Organisms: MRSA Date of last positivie culture/infection: 07/20/16 MDRO Source:: Urine Past Surgical History: Appendectomy, Section, Cholecystectomy Additional Past Surgical History / Comment(s): bowel resection, breast reduction , bilateral ACL repair, left brachial tumor biopsy and lymph node removed, bilateral knee surgery Past Anesthesia/Blood Transfusion Reactions: No Reported Reaction Past Psychological History: No Psychological Hx Reported Additional Psychological History / Comment(s): PT SAW DR MALIK DEVRIES IN [facility](PAIN DR) [phone] AFIA TELLEZ [phone]. Smoking Status: Never smoker Past Alcohol Use History: None Reported Additional Past Alcohol Use History / Comment(s): Patient states that she is a lifelong nonsmoker. She denies any medical marijuana, marijuana or street drug or alcohol use. Patient lives at home with her and 2 sons that are 20 and 22 years of age. There is a cat in the home. Patient is currently residing at [facility] for rehab. Past Drug Use History: None Reported - Past Family History Daughter(s) Family Medical History: No Reported History Father Family Medical History: Diabetes Mellitus Additional Family Medical History / Comment(s): GOUT- ANY OTHER HS UNK Mother Additional Family Medical History / Comment(s): of LUNG DISEASE General Exam - General Exam Comments Initial Comments: This is a well-developed well-nourished awake alert oriented 3 female Limitations: no limitations General appearance: alert, in no apparent distress Head exam: Present: atraumatic, normocephalic, normal inspection Eye exam: Present: normal appearance, PERRL, EOMI. Absent: scleral icterus, conjunctival injection, periorbital swelling ENT exam: Present: mucous membranes dry Neck exam: Present: normal inspection. Absent: tenderness, meningismus, lymphadenopathy Respiratory exam: Present: normal lung sounds bilaterally. Absent: respiratory distress, wheezes, rales, rhonchi, stridor Cardiovascular Exam: Present: regular rate, normal rhythm, normal heart sounds. Absent: systolic murmur, diastolic murmur, rubs, gallop, clicks GI/Abdominal exam: Present: soft, normal bowel sounds, other (Obese abdomen with a erythematous rash noted. The rash extension the infraumbilical region up to the breast.). Absent: distended, tenderness, guarding, rebound, rigid Extremities exam: Present: normal inspection, full ROM, normal capillary refill. Absent: tenderness, pedal edema, joint swelling, calf tenderness Back exam: Present: normal inspection Neurological exam: Present: alert, oriented X3, CN II-XII intact Psychiatric exam: Present: normal affect, normal mood Skin exam: Present: warm, dry, intact, normal color. Absent: rash Course Vital Signs 07/26/16 07/26/16 07/26/16 16:40 17:12 18:52 Temperature 98.1 F Pulse Rate 87 85 82 Respiratory 20 18 17 Rate Blood Pressure 111/80 115/69 109/62 O2 Sat by Pulse 100 100 Oximetry 07/26/16 07/26/16 07/26/16 19:46 20:00 21:25 Temperature 97.8 F Pulse Rate 82 16 L 79 Respiratory 18 16 Rate Blood Pressure 100/61 118/72 O2 Sat by Pulse 100 93 L Oximetry EKG Findings - EKG Results: EKG: interpreted by DAVIAN, WNL, sinus rhythm, normal axis, normal QRS, normal ST/ T, no acute changes (Sinus rhythm rate 95. Interval 150 to QRS duration 80 daily since QTC of 356/[address]-T wave changes some artifact is present.) Medical Decision Making - Medical Decision Making I did discuss the findings with the patient's attending physician patient does have metabolic encephalopathy with elevated ammonia level patient will be admitted - Lab Data Result diagrams: 07/26/16 17:00 07/26/16 17:00 Lab Results 07/26/16 07/26/16 07/26/16 Range/Units 17:00 17:00 17:00 WBC 7.8 (3.8-10.6) k/uL RBC 4.00 (3.80-5.40) m/uL Hgb 12.2 (11.4-16.0) gm/dL Hct 37.2 (34.0-46.0) % MCV 93.2 (80.0-100.0) fL MCH 30.5 (25.0-35.0) pg MCHC 32.8 (31.0-37.0) g/dL RDW 14.8 (11.5-15.5) % Plt Count 172 (150-450) k/uL Neutrophils % (Manual) 55.0 % Lymphocytes % (Manual) 26.0 % Monocytes % (Manual) 9.0 % Eosinophils % (Manual) 9.0 % Basophils % (Manual) 1.0 % Neutrophils # (Manual) 4.3 (1.3-7.7) k/uL Lymphocytes # (Manual) 2.0 (1.0-4.8) k/uL Monocytes # (Manual) 0.7 (0-1.0) k/uL Eosinophils # (Manual) 0.7 (0-0.7) k/uL Basophils # (Manual) 0.1 (0-0.2) k/uL Nucleated RBCs 0 (0-0) /100 WBC Manual Slide Review Performed PT (9.0-12.0) sec INR (<1.1) APTT (22.0-30.0) sec Sodium (137-145) mmol/L Potassium (3.5-5.1) mmol/L Chloride (98-107) mmol/L Carbon Dioxide (22-30) mmol/L Anion Gap mmol/L BUN (7-17) mg/dL Creatinine (0.52-1.04) mg/dL Est GFR (MDRD) Af Amer (>60 ml/min/1.73 sqM) Est GFR (MDRD) Non-Af (>60 ml/min/1.73 sqM) Glucose (74-99) mg/dL Calcium (8.4-10.2) mg/dL Magnesium (1.6-2.3) mg/dL Total Bilirubin (0.2-1.3) mg/dL AST (14-36) U/L ALT (9-52) U/L Alkaline Phosphatase (38-126) U/L Ammonia 81 H (<30) umol/L Total Creatine Kinase 37 (30-135) U/L CK-MB (CK-2) 0.7 (0.0-2.4) ng/mL CK-MB (CK-2) Rel Index 1.9 Troponin I 0.013 (0.000-0.034) ng/mL Total Protein (6.3-8.2) g/dL Albumin (3.5-5.0) g/dL Urine Color Urine Appearance (Clear) Urine pH (5.0-8.0) Ur Specific [place] (1.001-1.035) Urine Protein (Negative) Urine Glucose (UA) (Negative) Urine Ketones (Negative) Urine Blood (Negative) Urine Nitrate (Negative) Urine Bilirubin (Negative) Urine Urobilinogen (<2.0) mg/dL Ur Leukocyte Esterase (Negative) Urine RBC (0-5) /hpf Urine WBC (0-5) /hpf Ur Squamous Epith Cells (0-4) /hpf Urine Mucus (None) /hpf Urine Yeast (Budding) (None) /hpf Urine Opiates Screen (NotDetected) Ur Oxycodone Screen (NotDetected) Urine Methadone Screen (NotDetected) Ur Propoxyphene Screen (NotDetected) Ur Barbiturates Screen (NotDetected) U Tricyclic Antidepress (NotDetected) Ur Phencyclidine Scrn (NotDetected) Ur Amphetamines Screen (NotDetected) U Methamphetamines Scrn (NotDetected) U Benzodiazepines Scrn (NotDetected) Urine Cocaine Screen (NotDetected) U Marijuana (THC) Screen (NotDetected) 07/26/16 07/26/16 07/26/16 Range/Units 17:00 17:00 17:55 WBC (3.8-10.6) k/uL RBC (3.80-5.40) m/uL Hgb (11.4-16.0) gm/dL Hct (34.0-46.0) % MCV (80.0-100.0) fL MCH (25.0-35.0) pg MCHC (31.0-37.0) g/dL RDW (11.5-15.5) % Plt Count (150-450) k/uL Neutrophils % (Manual) % Lymphocytes % (Manual) % Monocytes % (Manual) % Eosinophils % (Manual) % Basophils % (Manual) % Neutrophils # (Manual) (1.3-7.7) k/uL Lymphocytes # (Manual) (1.0-4.8) k/uL Monocytes # (Manual) (0-1.0) k/uL Eosinophils # (Manual) (0-0.7) k/uL Basophils # (Manual) (0-0.2) k/uL Nucleated RBCs (0-0) /100 WBC Manual Slide Review PT 10.7 (9.0-12.0) sec INR 1.1 (<1.1) APTT 24.2 (22.0-30.0) sec Sodium 145 (137-145) mmol/L Potassium 4.7 (3.5-5.1) mmol/L Chloride 109 H (98-107) mmol/L Carbon Dioxide 26 (22-30) mmol/L Anion Gap 10 mmol/L BUN 16 (7-17) mg/dL Creatinine 0.90 (0.52-1.04) mg/dL Est GFR (MDRD) Af Amer >60 (>60 ml/min/1.73 sqM) Est GFR (MDRD) Non-Af >60 (>60 ml/min/1.73 sqM) Glucose 103 H (74-99) mg/dL Calcium 10.6 H (8.4-10.2) mg/dL Magnesium 2.6 H (1.6-2.3) mg/dL Total Bilirubin 0.9 (0.2-1.3) mg/dL AST 36 (14-36) U/L ALT 43 (9-52) U/L Alkaline Phosphatase 145 H (38-126) U/L Ammonia (<30) umol/L Total Creatine Kinase (30-135) U/L CK-MB (CK-2) (0.0-2.4) ng/mL CK-MB (CK-2) Rel Index Troponin I (0.000-0.034) ng/mL Total Protein 6.8 (6.3-8.2) g/dL Albumin 3.5 (3.5-5.0) g/dL Urine Color Urine Appearance (Clear) Urine pH (5.0-8.0) Ur Specific [place] (1.001-1.035) Urine Protein (Negative) Urine Glucose (UA) (Negative) Urine Ketones (Negative) Urine Blood (Negative) Urine Nitrate (Negative) Urine Bilirubin (Negative) Urine Urobilinogen (<2.0) mg/dL Ur Leukocyte Esterase (Negative) Urine RBC (0-5) /hpf Urine WBC (0-5) /hpf Ur Squamous Epith Cells (0-4) /hpf Urine Mucus (None) /hpf Urine Yeast (Budding) (None) /hpf Urine Opiates Screen Not Detected (NotDetected) Ur Oxycodone Screen Detected H (NotDetected) Urine Methadone Screen Not Detected (NotDetected) Ur Propoxyphene Screen Not Detected (NotDetected) Ur Barbiturates Screen Not Detected (NotDetected) U Tricyclic Antidepress Detected H (NotDetected) Ur Phencyclidine Scrn Not Detected (NotDetected) Ur Amphetamines Screen Not Detected (NotDetected) U Methamphetamines Scrn Not Detected (NotDetected) U Benzodiazepines Scrn Not Detected (NotDetected) Urine Cocaine Screen Not Detected (NotDetected) U Marijuana (THC) Screen Not Detected (NotDetected) 07/26/16 Range/Units 17:55 WBC (3.8-10.6) k/uL RBC (3.80-5.40) m/uL Hgb (11.4-16.0) gm/dL Hct (34.0-46.0) % MCV (80.0-100.0) fL MCH (25.0-35.0) pg MCHC (31.0-37.0) g/dL RDW (11.5-15.5) % Plt Count (150-450) k/uL Neutrophils % (Manual) % Lymphocytes % (Manual) % Monocytes % (Manual) % Eosinophils % (Manual) % Basophils % (Manual) % Neutrophils # (Manual) (1.3-7.7) k/uL Lymphocytes # (Manual) (1.0-4.8) k/uL Monocytes # (Manual) (0-1.0) k/uL Eosinophils # (Manual) (0-0.7) k/uL Basophils # (Manual) (0-0.2) k/uL Nucleated RBCs (0-0) /100 WBC Manual Slide Review PT (9.0-12.0) sec INR (<1.1) APTT (22.0-30.0) sec Sodium (137-145) mmol/L Potassium (3.5-5.1) mmol/L Chloride (98-107) mmol/L Carbon Dioxide (22-30) mmol/L Anion Gap mmol/L BUN (7-17) mg/dL Creatinine (0.52-1.04) mg/dL Est GFR (MDRD) Af Amer (>60 ml/min/1.73 sqM) Est GFR (MDRD) Non-Af (>60 ml/min/1.73 sqM) Glucose (74-99) mg/dL Calcium (8.4-10.2) mg/dL Magnesium (1.6-2.3) mg/dL Total Bilirubin (0.2-1.3) mg/dL AST (14-36) U/L ALT (9-52) U/L Alkaline Phosphatase (38-126) U/L Ammonia (<30) umol/L Total Creatine Kinase (30-135) U/L CK-MB (CK-2) (0.0-2.4) ng/mL CK-MB (CK-2) Rel Index Troponin I (0.000-0.034) ng/mL Total Protein (6.3-8.2) g/dL Albumin (3.5-5.0) g/dL Urine Color Yellow Urine Appearance Clear (Clear) Urine pH 7.0 (5.0-8.0) Ur Specific [place] 1.008 (1.001-1.035) Urine Protein Negative (Negative) Urine Glucose (UA) Negative (Negative) Urine Ketones Negative (Negative) Urine Blood Trace H (Negative) Urine Nitrate Negative (Negative) Urine Bilirubin Negative (Negative) Urine Urobilinogen <2.0 (<2.0) mg/dL Ur Leukocyte Esterase Negative (Negative) Urine RBC 11 H (0-5) /hpf Urine WBC 1 (0-5) /hpf Ur Squamous Epith Cells <1 (0-4) /hpf Urine Mucus Rare H (None) /hpf Urine Yeast (Budding) Occasional H (None) /hpf Urine Opiates Screen (NotDetected) Ur Oxycodone Screen (NotDetected) Urine Methadone Screen (NotDetected) Ur Propoxyphene Screen (NotDetected) Ur Barbiturates Screen (NotDetected) U Tricyclic Antidepress (NotDetected) Ur Phencyclidine Scrn (NotDetected) Ur Amphetamines Screen (NotDetected) U Methamphetamines Scrn (NotDetected) U Benzodiazepines Scrn (NotDetected) Urine Cocaine Screen (NotDetected) U Marijuana (THC) Screen (NotDetected) - Radiology Data Radiology results: report reviewed (I did review the imaging and reports no acute findings.), image reviewed Disposition Clinical Impression: Hepatic encephalopathy syndrome, Confusion Disposition: ADMITTED IP TO THIS [facility] Condition: Stable Referrals: Erma Nieto MD [Primary Care Provider] - 1-2 days Decision Time: 19:45
[2016-07-26 17:19] LABS: Aty Lym Flag Slight; CH 30.6; HCT 37.2 % (34.0-46.0); HDW 2.58; HGB 12.2 gm/dL (11.4-16.0); MCH 30.5 pg (25.0-35.0); MCHC 32.8 g/dL (31.0-37.0); MCV 93.2 fL (80.0-100.0); Mean Platelet Volume 7.7; RDW 14.8 % (11.5-15.5); WBC 7.8 k/uL (3.8-10.6); WBC (Perox) 8.07
[2016-07-26 17:25] LABS: INR 1.1 (<1.1); Partial Thromboplastin Time 24.2 sec (22.0-30.0); Prothrombin Time 10.7 sec (9.0-12.0)
[2016-07-26 17:29] LABS: ALT 43 U/L (9-52); AST 36 U/L (14-36); Alkaline Phosphatase 145 U/L (38-126); Anion Gap 10 mmol/L; Blood Urea Nitrogen 16 mg/dL (7-17); Calcium 10.6 mg/dL (8.4-10.2); Carbon Dioxide 26 mmol/L (22-30); Chloride 109 mmol/L (98-107); Glucose 103 mg/dL (74-99); Magnesium 2.6 mg/dL (1.6-2.3); Non-African American GFR(MDRD) >60 (>60 ml/min/1.73 sqM); Potassium 4.7 mmol/L (3.5-5.1); Sodium 145 mmol/L (137-145); Total Bilirubin 0.9 mg/dL (0.2-1.3); Total Protein 6.8 g/dL (6.3-8.2)
--- NOTE | 2016-07-26 17:37 | XR ---
EXAMINATION TYPE: XR chest 2V DATE OF EXAM: 07/26/2016 5:26 PM COMPARISON: 07/06/2016 HISTORY: Altered mental status TECHNIQUE: Frontal and lateral views of the chest are obtained. FINDINGS: There is patchy linear density in both lungs consistent with atelectasis. There is no hear t failure. There is no pleural effusion. There are no hilar masses. IMPRESSION: Bilateral subsegmental atelectasis is new compared to last exam. No heart failure.
[2016-07-26 17:53] LABS: Add Differential Manual Differential
[2016-07-26 17:56] LABS: Creatine Kinase MB 0.7 ng/mL (0.0-2.4); Manual Review Performed; Nucleated Red Blood Cells 0 /100 WBC (0-0); Total Cells Counted 100; Troponin I 0.013 ng/mL (0.000-0.034)
[2016-07-26 18:33] LABS: Appearance,Urine Clear (Clear); Bilirubin,Urine Negative (Negative); Glucose,Urine (UA) Negative (Negative); Ketones,Urine Negative (Negative); Leukocyte Esterase,Urine Negative (Negative); Mucus,Urine Rare /hpf; Nitrite,Urine Negative (Negative); Particle Count 1613; Protein,Urine Negative (Negative); RBC,Urine 11 /hpf (0-5); Specific Gravity,Urine 1.008 (1.001-1.035); Squamous Epithelial Cell,Urine <1 /hpf (0-4); UA Billing (MACRO vs. MICRO) MICRO; Urobilinogen,Urine <2.0 mg/dL (<2.0); WBC,Urine 1 /hpf (0-5)
--- NOTE | 2016-07-26 19:23 | CT ---
EXAMINATION TYPE: CT brain wo con DATE OF EXAM: 07/26/2016 7:14 PM COMPARISON: NONE HISTORY: Altered mental status and weakness. CT DLP: 2432.70 mGycm Automated exposure control for dose reduction was used. FINDINGS: Ventricles and sulci appear normal. There is no mass effect nor midline shift. There is no sign of in tracranial hemorrhage. The calvarium is intact. IMPRESSION: Negative unenhanced head CT scan.
[2016-07-26] MEDS ORDERED: RX INFO: IV CONTRAST WAS GIVEN 1 EACH MISC MISCELLANE PRN (19:47)
--- NOTE | 2016-07-26 20:51 | CT ---
EXAMINATION TYPE: CT abdomen pelvis w con DATE OF EXAM: 07/26/2016 8:37 PM COMPARISON: 01/27/2014 HISTORY: Elevated ammonia levels. Patient poor historian. CT DLP: 2997.30 mGycm Automated exposure control for dose reduction was used. TECHNIQUE: Helical acquisition of images was performed from the lung bases through the pelvis. CONTRAST: Performed without Oral Contrast and with IV Contrast, patient injected with 100 mL of Omnipaque 300. FINDINGS: There is some mild atelectasis at the lung bases. There is no pleural effusion. Heart is enlarged. Liver shows no focal defects. Spleen is large. There is no sign of pancreatic mass. There are clips f rom cholecystectomy. There is probably a small hiatal hernia. There is no adrenal mass. Kidneys have normal size. There are bilateral renal calcifications and measure up to 8 mm. There is no hydronephro sis. Ureters are not dilated. There is no retroperitoneal adenopathy. There is no ascites. Bladder di stends smoothly. There is no sign of a pelvic mass. Appendix is not seen. There is no sign of appendi citis. There is retained fecal material throughout the colon. I see no bony destructive process. Ther e are spondylotic changes in the lower lumbar spine. IMPRESSION: THERE IS EVIDENCE OF SOME CONSTIPATION WITH INCREASED FECAL MATERIAL COMPARED TO OLD EXAM. THERE ARE BILATERAL NONOBSTRUCTING RENAL CALCULI THAT ARE INCREASED COMPARED TO OLD EXAM. NO SIGN OF AN ACUTE A BDOMEN. MILD ATELECTASIS AT THE LUNG BASES. THIS IS NEW COMPARED TO OLD EXAM..
[2016-07-26] MEDS ORDERED: NALOXONE 0.4 MG/ML 1 ML VIAL IV PRN (21:32)
[2016-07-26] MEDS ORDERED: ALBUTEROL NEBULIZED 2.5 MG/3 ML INHALATION PRN (21:34)
[2016-07-26] MEDS ORDERED: LACTULOSE 20 GM/30 ML CUP PO ONE (21:35)
[2016-07-26 21:46] LABS: Glucose,Whole Blood 104 mg/dL (75-99)
[2016-07-26 23:47] VITALS: BMI 58.6
[2016-07-27] MEDS: SODIUM CHLORIDE 0.9% 1,000 ML IV SCH ×4 (00:59→22:44)
[2016-07-27 02:52] LABS: Glucose,Whole Blood 103 mg/dL (75-99)
[2016-07-27] MEDS: FUROSEMIDE 40 MG TAB PO SCH ×2 (08:05→20:05)
[2016-07-27] MEDS: METOPROLOL TARTRATE 25 MG TAB PO SCH ×2 (08:05→20:25)
[2016-07-27] MEDS: DOXYCYCLINE 50 MG CAP PO SCH ×2 (08:05→20:06)
[2016-07-27 08:07] LABS: Glucose,Whole Blood 130 mg/dL (75-99)
[2016-07-27 11:29] LABS: Glucose,Whole Blood 95 mg/dL (75-99)
[2016-07-27] MEDS ORDERED: BISACODYL 5 MG TABLET.DR PO PRN (15:53)
[2016-07-27 16:51] LABS: % Iron Saturation 19.2 % (20-50); Rheumatoid Factor, Qnt <9 IU/mL (<12); Total Iron Binding Capacity 260 ug/dL (265-497)
[2016-07-27 16:53] LABS: Hepatitis B Surface Ag Index 0.09
[2016-07-27 16:59] LABS: Hepatitis B Core IgM Index 0.04
[2016-07-27 17:11] LABS: Hepatitis C Virus IgG Index 0.05
[2016-07-27 17:18] LABS: Glucose,Whole Blood 76 mg/dL (75-99)
[2016-07-27 17:25] LABS: Iron 50 ug/dL (37-170)
[2016-07-27] MEDS: oxyCODONE-APAP 10-325MG 1 EACH TAB PO PRN (17:29)
[2016-07-27] MEDS: LACTULOSE 20 GM/30 ML CUP PO SCH ×2 (17:30→20:24)
[2016-07-27 17:49] LABS: Hepatitis C Virus IgG Ab Negative (Negative)
--- NOTE | 2016-07-27 19:38 | P.HPIM ---
History of Present Illness H&P Date: 07/27/16 Chief Complaint: Acute mental status changes/elevated ammonia level his is a 46-year-old female one of my patient with a previous medical history significant for schwannoma status post resection and the left brachial plexus with resultant left wrist drop and complex regional pain syndrome (CRPS).was hospitalized here at [facility] in 07/06/2016 till 07/10/2016 due to cellulitis with significant skin rash involving her chest abdomen up her lower extremities along with significant buttock wound to the left side at that time she was treated with the Kenalog cream as well as Eucerin cream, and she was placed on IV anabiotic in the form Ancef so sequelae she was switched to Keflex 500 mg orally 3 times every day patient thought that she did have a reaction to the antibiotic she ended up stopping antibiotic at [facility] and she ended up feeling a bit better she continued to have significant dryness and erythema to the chest as well as abdomen low vitamin left lower extremity, patient was doing physical therapy over there and unfortunately on physical therapy and outpatient therapy could not hold the patient and ended up lowering the patient on to the floor, her got upset because he felt the patient is having mental status changes and the patient was referred to the emergency department at [facility] she was found to have an elevated ammonia level at 84 without any other abnormalities she had a computed tomography scan of the abdomen and pelvis that did show only the stool impaction other than that she was doing fine the liver did not show any evidence of any liver cirrhosis however she did have splenomegaly, the patient was admitted to the hospital she was placed on lactulose 20 g orally twice every day and the GI consultation was obtained, chronic liver panel was obtained. Review of Systems Constitutional: Reports chronic headaches, Reports chronic pain, Reports fatigue , Reports lethargy, Reports weakness, Reports weight gain, Denies anorexia Eyes: denies blurred vision, denies bulging eye, denies decreased vision Ears: deny: decreased hearing Ears, nose, mouth and throat: Denies dysphagia, Denies neck lump, Denies swelling in throat, Denies sore throat Cardiovascular: Denies chest pain, Denies decreased exercise tolerance, Denies dyspnea on exertion, Denies high blood pressure, Denies paroxysmal nocturnal dyspnea, Denies phlebitis, Denies rapid heart beat, Denies shortness of breath, Denies syncope Respiratory: Reports sleep apnea, Reports snoring, Denies congestion, Denies cough, Denies cough with sputum, Denies home oxygen, Denies wheezing Gastrointestinal: Reports constipation, Denies abdominal pain, Denies bloating, Denies BRBPR, Denies excessive gas, Denies melena, Denies nausea, Denies vomiting Genitourinary: Denies dysuria, Denies hematuria Musculoskeletal: Reports gait dysfunction, Reports low back pain, Reports shooting arm pain Musculoskeletal: left: shoulder pain, shoulder stiffness, shoulder swelling, wrist pain, wrist stiffness, absent: ankle pain, ankle stiffness, ankle swelling , elbow pain, elbow stiffness, elbow swelling, foot pain, foot stiffness, foot swelling, hand pain, hand stiffness, hand swelling, hip pain, hip stiffness, hip swelling, knee pain, knee stiffness, knee swelling, wrist swelling Integumentary: Reports rash (Exfoliative rash with erythema base that appears to be better than he was in the chest abdomen and to a lesser extent to the left lower extremity.) Neurological: Reports gait dysfunction, Reports numbness, Reports paresthesias, Reports sensory deficit, Reports weakness Psychiatric: Reports anxiety, Reports depression, Denies sadness/tearfulness, Denies sleep disturbances, Denies suicidal ideation 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 complicated by a wrist drop and chronic contractures and muscle atrophy in the left upper extremity, complex regional pain syndrome, reflex sympathetic dystrophy, pancreatitis, morbid obesity, history of hemorrhagic cystitis, history of chronic pain, history of GI bleeds, cellulitis, septic in 2016 [facility] History of Any Multi-Drug Resistant Organisms: MRSA Date of last positivie culture/infection: 07/20/16 MDRO Source:: Urine Past Surgical History: Appendectomy, Section, Cholecystectomy Additional Past Surgical History / Comment(s): bowel resection, breast reduction , bilateral ACL repair, left brachial tumor biopsy and lymph node removed, bilateral knee surgery Past Anesthesia/Blood Transfusion Reactions: No Reported Reaction Past Psychological History: Depression Additional Psychological History / Comment(s): PT SAW DR MALIK DEVRIES IN [facility](PAIN DR) [phone] AFIA TELLEZ [phone]. Smoking Status: Never smoker Past Alcohol Use History: None Reported Additional Past Alcohol Use History / Comment(s): Patient states that she is a lifelong nonsmoker. She denies any medical marijuana, marijuana or street drug or alcohol use. Patient lives at home with her and 2 sons that are 20 and 22 years of age. There is a cat in the home. Patient is currently residing at [facility] for rehab. Past Drug Use History: None Reported - Past Family History Daughter(s) Family Medical History: No Reported History Father Family Medical History: Diabetes Mellitus Additional Family Medical History / Comment(s): GOUT- ANY OTHER HS UNK Mother Additional Family Medical History / Comment(s): of LUNG DISEASE Medications and Allergies Home Medications Medication Instructions Recorded Confirmed Type Albuterol Nebulized [Ventolin 2.5 mg INHALATION RT-Q6H PRN 08/17/14 07/26/16 History Nebulized] Cranberry Conc/C/Bacill Coag 1 tab PO DAILY 07/13/15 07/26/16 History [Cranberry Tablet] Cyclobenzaprine [Flexeril] 10 mg PO TID 07/05/16 07/26/16 History Furosemide [Lasix] 40 mg PO BID 07/05/16 07/26/16 History Losartan Potassium 100 mg PO DAILY 07/05/16 07/26/16 History Mirtazapine [Remeron] 15 mg PO HS 07/05/16 07/26/16 History Multivitamins, Thera [Multivitamin] 1 tab PO DAILY 07/05/16 07/26/16 History Ascorbic Acid [Vitamin C] 500 mg PO BID 07/06/16 07/26/16 History ALPRAZolam [Xanax] 0.25 mg PO BID PRN 07/26/16 07/26/16 History Doxycycline Hyclate [Vibramycin] 100 mg PO BID 07/26/16 07/26/16 History Metoprolol Tartrate [Lopressor] 25 mg PO BID 07/26/16 07/26/16 History Pantoprazole [Protonix] 40 mg PO HS 07/26/16 07/26/16 History buPROPion [Wellbutrin] 100 mg PO BID 02/01/17 02/01/17 History diphenhydrAMINE [Benadryl] 25 mg PO Q6H PRN 07/26/16 07/26/16 History Allergies Allergy/AdvReac Type Severity Reaction Status Date / Time aspirin Allergy Unknown Verified 07/26/16 23:33 ciprofloxacin [From Cipro] Allergy Swelling Verified 07/26/16 23:33 ciprofloxacin HCl Allergy Swelling Verified 07/26/16 23:33 [From Cipro] levofloxacin [From Levaquin] Allergy Rash/Hives Verified 07/26/16 23:33 Penicillins Allergy Rash/Hives Verified 07/26/16 23:33 Physical Exam Vitals: Vital Signs Temp Pulse Pulse Resp BP BP Pulse Ox 07/27/16 15:37 98.1 F 92 17 114/64 98 07/27/16 09:12 94 L 07/27/16 07:00 98.1 F 98 16 104/55 98 07/27/16 04:26 76 18 07/27/16 00:49 98 F 76 18 99/66 100 07/26/16 23:21 76 07/26/16 23:15 77 07/26/16 22:58 97.9 F 78 16 120/58 96 07/26/16 22:25 80 18 97 Intake and Output 07/27/16 07/27/16 07/27/16 06:59 14:59 22:59 Other: Voiding Method Bedpan Bedpan Bedpan Diaper Diaper Diaper # Voids 2 2 1 # Bowel Movements 1 Weight 136.078 kg 136.078 kg Patient Weight 07/28/16 06:59 Weight 136.078 kg - Constitutional General appearance: no acute distress, obese - EENT Eyes: anicteric sclerae, PERRLA, no ptosis, no scleral icterus, normal appearance ENT: normal oropharynx, no thrush Ears: bilateral: normal - Neck Neck: no lymphadenopathy, normal ROM, no rigidity, no stridor, no thyromegaly Carotids: bilateral: upstroke normal Thyroid: bilateral: normal size - Respiratory Respiratory: bilateral: diminished, negative: dullness, rales, rhonchi, wheezing , prolonged expiration, prolonged inspiration - Cardiovascular Rhythm: regular Heart sounds: normal: S1, S2 Abnormal Heart Sounds: no systolic murmur, no rub, no S3 Gallop, no S4 Gallop, no click - Gastrointestinal General gastrointestinal: normal bowel sounds, soft, splenomegaly, no tenderness , no umbilical hernia, no ventral hernia - Integumentary Integumentary: normal, normal turgor, rash (Exfoliative rash with erythema base and the chest abdomen and left lower extreme and he) - Neurologic Neurologic: CNII-XII intact, focal deficits (Left upper extremity) - Musculoskeletal Musculoskeletal: generalized weakness - Psychiatric Psychiatric: A&O x's 3, appropriate affect, intact judgment & insight Results CBC & Chem 7: 07/26/16 17:00 07/26/16 17:00 Labs: Abnormal Lab Results - Last 24 Hours (Table) 07/27/16 07/27/16 Range/Units 02:48 08:00 POC Glucose (mg/dL) 103 H 130 H (75-99) mg/dL Microbiology - Last 24 Hours (Table) 07/27/16 00:15 Urine Culture - Preliminary Urine,Voided Thrombosis Risk Factor Assmnt - DVT/VTE Prophylaxis DVT/VTE Prophylaxis: Pharmacologic Prophylaxis ordered, Mechanical Prophylaxis ordered - Choose All That Apply Any of the Below Risk Factors Present?: Yes Each Factor Represents 1 point: Abnormal pulmonary function (COPD), Age 41-60 years, Obesity (BMI >25), Swollen legs (current) Other Risk Factors: Yes Each Risk Factor Represents 2 Points: Patient confined to bed Other congenital or acquired thrombophilia - If yes, enter type in comment: No Thrombosis Risk Factor Assessment Total Risk Factor Score: 6 Thrombosis Risk Factor Assessment Level: High Risk Assessment and Plan Plan: Assessment and plan: 1. Altered level of consciousness secondary to elevated ammonia level. There is no evidence of any hepatic encephalopathy, there is no obvious reason for why the ammonia level was elevated beside the severe constipation, there is evidence of splenic and the CAT scan of the abdomen, we will obtain a chronic liver panel including hepatitis panel as well as iron studies along with a chronic liver panel. We will obtain GI consultation. 2. History of hydronephrosis. Was under the care of urology in the past. Computed tomography scan did not show any evidence of any hydronephrosis. 3. Supermorbid obesity with BMI 72 with WEI and OHS will continue with CPAP. 4. History of Schwanoma of the left brachial plexus with resultant chronic regional pain syndrome (CRPS).will continue with current pain management with Opana ER and percocet for breakthrough pain. 5. History of Fibromyalgia. Continue current pain management. Continue Flexeril 10 mg orally 3 times every day. 6. Chronic anemia will check iron studies. 7. Depression.will continue with bupropion 100 mg po bid and Remeron 15 mg orally bedtime. 8. 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 9.Chronic pain syndrome.will continue with current pain management. 10.DVT prophylaxis.will continue with heparin 5000 units subcutaneously every 8 hours. 11. GI prophylaxis.will continue with protonix 40 mg po daily. 12.Full code.
[2016-07-27] MEDS: OXYMORPHONE HCL 5 MG TABLET PO SCH (20:05)
[2016-07-27] MEDS: ASCORBIC ACID 500 MG TAB PO SCH (20:24)
[2016-07-27] MEDS: buPROPion 100 MG TAB PO SCH (20:24)
[2016-07-27] MEDS: NYSTATIN 100,000 UNIT/GM POWD 15 GM TOPICAL SCH (20:26)
[2016-07-27] MEDS: TRIAMCINOLONE ACET 0.1% OINTMENT 80 GM TUBE TOPICAL SCH (20:26)
[2016-07-27 20:28] LABS: Glucose,Whole Blood 112 mg/dL (75-99)
[2016-07-27] MEDS ORDERED: PANTOPRAZOLE 40 MG TABLET PO SCH (21:00)
[2016-07-27] MEDS ORDERED: MIRTAZAPINE 15 MG TAB PO SCH (21:00)
[2016-07-27] MEDS: POTASSIUM CHLORIDE ER 20 MEQ TAB.ER PO SCH (21:38)
[2016-07-27] MEDS: MAG HYDROX/AL HYDROX/SIMETH 30 ML CUP PO SCH (21:39)
[2016-07-28] MEDS: OXYMORPHONE HCL 5 MG TABLET PO SCH ×4 (00:45→12:52)
[2016-07-28] MEDS: oxyCODONE-APAP 10-325MG 1 EACH TAB PO PRN (02:25)
[2016-07-28 04:22] LABS: Glucose,Whole Blood 85 mg/dL (75-99)
[2016-07-28] MEDS: SODIUM CHLORIDE 0.9% 1,000 ML IV SCH ×2 (05:02→08:33)
[2016-07-28 08:00] LABS: Glucose,Whole Blood 89 mg/dL (75-99)
[2016-07-28 08:30] VITALS: RESP 16
[2016-07-28] MEDS: METOPROLOL TARTRATE 25 MG TAB PO SCH (08:30)
[2016-07-28] MEDS: POTASSIUM CHLORIDE ER 20 MEQ TAB.ER PO SCH (08:30)
[2016-07-28] MEDS: LACTULOSE 20 GM/30 ML CUP PO SCH (08:31)
[2016-07-28] MEDS: DOXYCYCLINE 50 MG CAP PO SCH (08:31)
[2016-07-28] MEDS: FUROSEMIDE 40 MG TAB PO SCH (08:31)
[2016-07-28] MEDS: buPROPion 100 MG TAB PO SCH (08:32)
[2016-07-28] MEDS: ASCORBIC ACID 500 MG TAB PO SCH (08:32)
[2016-07-28] MEDS: MAG HYDROX/AL HYDROX/SIMETH 30 ML CUP PO SCH (08:33)
[2016-07-28] MEDS: NYSTATIN 100,000 UNIT/GM POWD 15 GM TOPICAL SCH (08:34)
[2016-07-28] MEDS: TRIAMCINOLONE ACET 0.1% OINTMENT 80 GM TUBE TOPICAL SCH (08:38)
[2016-07-28] MEDS ORDERED: LOSARTAN 50 MG TAB PO SCH (09:00)
[2016-07-28] MEDS ORDERED: NON-FORMULARY DRUG (Cranberry Conc/C/Bacill Coag [Cranberry Tablet] 1 TAB) PO SCH (09:00)
[2016-07-28 11:53] LABS: Glucose,Whole Blood 98 mg/dL (75-99)
[2016-07-28] MEDS ORDERED: MULTIVITAMINS, THERA 1 EACH TAB PO SCH (12:00)
[2016-07-28 14:27] VITALS: BP 115/68; PULSE 85; TEMP 98.1
[2016-07-28 15:46] LABS: ANA w/Reflex to Titer NEGATIVE (NEGATIVE)
--- NOTE | 2016-08-01 08:30 | P.DS ---
Providers Date of admission: 07/26/16 21:32 Expected date of discharge: 07/28/16 Attending physician: Erma Nieto Primary care physician: Erma Nieto Hospital Course: This is a 46-year-old female one of my patient with a previous medical history significant for schwannoma status post resection and the left brachial plexus with resultant left wrist drop and complex regional pain syndrome (CRPS).was hospitalized here at [facility] in 07/06/2016 till 07/10/2016 due to cellulitis with significant skin rash involving her chest abdomen up her lower extremities along with significant buttock wound to the left side at that time she was treated with the Kenalog cream as well as Eucerin cream, and she was placed on IV anabiotic in the form Ancef so sequelae she was switched to Keflex 500 mg orally 3 times every day patient thought that she did have a reaction to the antibiotic she ended up stopping antibiotic at [facility] and she ended up feeling a bit better she continued to have significant dryness and erythema to the chest as well as abdomen low vitamin left lower extremity, patient was doing physical therapy over there and unfortunately on physical therapy and outpatient therapy could not hold the patient and ended up lowering the patient on to the floor, her got upset because he felt the patient is having mental status changes and the patient was referred to the emergency department at [facility] she was found to have an elevated ammonia level at 84 without any other abnormalities she had a computed tomography scan of the abdomen and pelvis that did show only the stool impaction other than that she was doing fine the liver did not show any evidence of any liver cirrhosis however she did have splenomegaly, the patient was admitted to the hospital she was placed on lactulose 20 g orally twice every day and the GI consultation was obtained, chronic liver panel was obtained. 2/3: Acute hepatitis panel is negative. Iron 50, TIBC 260, iron saturation 19.2 , ferritin 93. TRENT, alpha-fetoprotein, anti-DNA DS antibody, anti-mite till chondral antibody, anti-OVEN ATTENDANT, ceruloplasmin, liver/kidney microsomal, smooth muscle antibody all pending. Patient has decided that she wants to go home. Prescriptions have been provided. She currently does not qualify for home oxygen. Patient is being discharged home today in stable condition. Discharge diagnoses: 1. Metabolic encephalopathy secondary to elevated ammonia level. There is no evidence of any hepatic encephalopathy, there is no obvious reason for why the ammonia level was elevated beside the severe constipation 2. History of hydronephrosis. 3. Supermorbid obesity with BMI 72 with WEI and OHS 4. History of Schwanoma of the left brachial plexus with resultant chronic regional pain syndrome (CRPS). 5. History of Fibromyalgia. 6. Chronic anemia 7. Depression recurrent 8. 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 9.Chronic pain syndrome. Discharge plan: Home with [facility] Impression and plan of care have been directed as dictated by the signing physician. Elaina Latif nurse practitioner acting as scribe for signing physician. Patient Condition at Discharge: Good Plan - Discharge Summary New Discharge Prescriptions: ALPRAZolam [Xanax] 0.25 mg PO BID PRN #60 tablet PRN Reason: Anxiety Albuterol Nebulized [Ventolin Nebulized] 2.5 mg INHALATION RT-Q6H PRN #120 nebu PRN Reason: Shortness Of Breath Cyclobenzaprine [Flexeril] 10 mg PO TID #90 tab Doxycycline Hyclate [Vibramycin] 100 mg PO BID #20 capsule Furosemide [Lasix] 40 mg PO BID #60 tab Lactulose [Cephulac] 20 gm PO DAILY #900 ml Losartan Potassium 100 mg PO DAILY #30 tablet Metoprolol Tartrate [Lopressor] 25 mg PO BID #60 tab Mirtazapine [Remeron] 15 mg PO HS #30 tablet Nystatin 100,000 Unit/gm Powd [Mycostatin Powder] 1 applic TOPICAL BID #20 applic Oxymorphone HCl [Opana ER] 40 mg PO Q8H #90 tab.er.12h Pantoprazole [Protonix] 40 mg PO HS #30 tablet. Potassium Chloride ER [K-Dur 20] 20 meq PO BID #60 tab.er.prt Triamcinolone 0.1% Ointment [Kenalog] 1 applic TOPICAL BID #60 gm buPROPion [Wellbutrin] 100 mg PO BID #60 tab oxyCODONE HCL/ACETAMINOPHEN [Endocet 10-325 mg] 1 tab PO Q6H PRN #120 tablet PRN Reason: Pain Discharge Medication List Bisacodyl [Dulcolax] 5 mg PO DAILY PRN #0 tablet. 06/09/15 [Rx] Cranberry Conc/C/Bacill Coag [Cranberry Tablet] 1 tab PO DAILY 07/13/15 [History ] Multivitamins, Thera [Multivitamin] 1 tab PO DAILY 07/05/16 [History] Ascorbic Acid [Vitamin C] 500 mg PO BID 07/06/16 [History] Mag Hydrox/Al Hydrox/Simeth [Maalox] 30 ml PO BID #30 cup 07/10/16 [Rx] diphenhydrAMINE [Benadryl] 25 mg PO Q6H PRN 07/26/16 [History] ALPRAZolam [Xanax] 0.25 mg PO BID PRN #60 tablet 07/28/16 [Rx] Albuterol Nebulized [Ventolin Nebulized] 2.5 mg INHALATION RT-Q6H PRN #120 nebu 07/28/16 [Rx] Cyclobenzaprine [Flexeril] 10 mg PO TID #90 tab 07/28/16 [Rx] Doxycycline Hyclate [Vibramycin] 100 mg PO BID #20 capsule 07/28/16 [Rx] Furosemide [Lasix] 40 mg PO BID #60 tab 07/28/16 [Rx] Lactulose [Cephulac] 20 gm PO DAILY #900 ml 07/28/16 [Rx] Losartan Potassium 100 mg PO DAILY #30 tablet 07/28/16 [Rx] Metoprolol Tartrate [Lopressor] 25 mg PO BID #60 tab 07/28/16 [Rx] Mirtazapine [Remeron] 15 mg PO HS #30 tablet 07/28/16 [Rx] Nystatin 100,000 Unit/gm Powd [Mycostatin Powder] 1 applic TOPICAL BID #20 applic 07/28/16 [Rx] Oxymorphone HCl [Opana ER] 40 mg PO Q8H #90 tab.er.12h 07/28/16 [Rx] Pantoprazole [Protonix] 40 mg PO HS #30 tablet. 07/28/16 [Rx] Potassium Chloride ER [K-Dur 20] 20 meq PO BID #60 tab.er.prt 07/28/16 [Rx] Triamcinolone 0.1% Ointment [Kenalog] 1 applic TOPICAL BID #60 gm 07/28/16 [Rx] buPROPion [Wellbutrin] 100 mg PO BID #60 tab 07/28/16 [Rx] oxyCODONE HCL/ACETAMINOPHEN [Endocet 10-325 mg] 1 tab PO Q6H PRN #120 tablet 09/08 [Rx] Follow up Appointment(s)/Referral(s): Erma Nieto MD [Primary Care Provider] - 1 Week [facility], [NON-STAFF] - 1 Week Patient Instructions/Handouts: Metoprolol (By mouth), Bupropion (By mouth), Furosemide (By mouth), Doxycycline (By mouth), Oxycodone/Acetaminophen (By mouth ), Alprazolam (By mouth), Albuterol (By breathing), Cyclobenzaprine (By mouth), Potassium Chloride (By mouth), Nystatin (By mouth), Lactulose (By mouth), Triamcinolone (On the skin), Losartan (By mouth), Mirtazapine (By mouth), Pantoprazole (By mouth), Oxymorphone (By mouth), Hepatic Encephalopathy (DC) Discharge Disposition: HOME WITH HOME HEALTH SERVICES
== END 2016-07-28 17:00 | disposition home health service (06) | DRG 642 ==
LOC: EC 16:37 → 5MS5E 21:32
PROVIDERS: ADMIT Internal Medicine; ATTEND Internal Medicine
DX: E72.4 Disorders of ornithine metabolism (principal); G93.41 Metabolic encephalopathy; Z68.45 Body mass index [BMI] 70 or greater, adult; E66.2 Morbid (severe) obesity with alveolar hypoventilation; R16.1 Splenomegaly, not elsewhere classified; G90.50 Complex regional pain syndrome I, unspecified; F32.9 Major depressive disorder, single episode, unspecified; D64.9 Anemia, unspecified; G89.4 Chronic pain syndrome; M79.7 Fibromyalgia; K56.41 Fecal impaction; R53.1 Weakness; R51 Headache; M54.5 Low back pain; J45.909 Unspecified asthma, uncomplicated; J44.9 Chronic obstructive pulmonary disease, unspecified; M62.432 Contracture of muscle, left forearm; R26.9 Unspecified abnormalities of gait and mobility; F41.9 Anxiety disorder, unspecified; M21.332 Wrist drop, left wrist; E78.5 Hyperlipidemia, unspecified; M19.90 Unspecified osteoarthritis, unspecified site; Z87.442 Personal history of urinary calculi; Z83.3 Family history of diabetes mellitus; Z88.6 Allergy status to analgesic agent; Z88.1 Allergy status to other antibiotic agents; Z88.0 Allergy status to penicillin; Z87.440 Personal history of urinary (tract) infections; Z87.19 Personal history of other diseases of the digestive system; Z87.448 Personal history of other diseases of urinary system; Z86.19 Personal history of other infectious and parasitic diseases; Z79.2 Long term (current) use of antibiotics; Z79.899 Other long term (current) drug therapy; Z86.14 Personal history of Methicillin resistant Staphylococcus aureus infection; Z90.49 Acquired absence of other specified parts of digestive tract; Z83.6 Family history of other diseases of the respiratory system
CPT/HCPCS: 36415; 70450; 71020; 74177; 80053; 80074; 80306; 81001; 82105; 82140; 82390; 82550; 82553; 82728; 83516; 83540; 83550; 83605; 83735; 84484; 85025; 85610; 85730; 86038; 86225; 86235; 86376; 86431; 87040; 87086; 94760; 96360; 96361; 99285

== ENCOUNTER 2016-10-05 17:55 | Inpatient (IN) | payer MEDICARE, OTHER ==
[2016-10-05] MEDS ORDERED: SODIUM CHLORIDE 0.9% 1,000 ML IV STA ×2 (18:03)
--- NOTE | 2016-10-05 18:11 | ED ---
Altered Mental Status HPI - General Source: patient, EMS, RN notes reviewed, old records reviewed Mode of arrival: EMS - History of Present Illness MD Complaint: confusion, decreased responsiveness <Miles Mueller - Last Filed: 10/05/16 19:36> <Owen Suárez - Last Filed: 10/05/16 20:35> - General Stated Complaint: Poss Sepsis Time Seen by Provider: 10/05/16 17:55 - History of Present Illness Initial Comments: This is a 46-year-old female with a history of multiple medical problems including UTI sepsis cellulitis COPD Regional pain syndrome esophageal varices and morbid obesity who is brought in by EMS from home with complaints of altered mental status. Apparently when she gets this condition is secondary to an infection or elevated ammonia levels. Unclear what is across today she has no reported fevers chills or sweats she does have decubitus ulcers and skin erosions under her panniculus. He complains of chronic pain she's had a slight cough no dysuria. (Miles Mueller) - Related Data Home Medications Medication Instructions Recorded Confirmed Cranberry Conc/C/Bacill Coag 1 tab PO DAILY 07/13/15 10/05/16 [Cranberry Tablet] Multivitamins, Thera [Multivitamin 1 tab PO DAILY 07/05/16 10/05/16 (formulary)] oxyCODONE-APAP 10-325MG [Percocet 1 tab PO Q6HR PRN 10/05/16 10/05/16 10-325 mg] Previous Rx's Medication Instructions Recorded ALPRAZolam [Xanax] 0.25 mg PO BID PRN #60 tablet 07/28/16 Albuterol Nebulized [Ventolin 2.5 mg INHALATION RT-Q6H PRN #120 07/28/16 Nebulized] nebu Cyclobenzaprine [Flexeril] 10 mg PO TID #90 tab 07/28/16 Furosemide [Lasix] 40 mg PO BID #60 tab 07/28/16 Lactulose [Cephulac] 20 gm PO DAILY #900 ml 07/28/16 Losartan Potassium 100 mg PO DAILY #30 tablet 07/28/16 Metoprolol Tartrate [Lopressor] 25 mg PO BID #60 tab 07/28/16 Mirtazapine [Remeron] 15 mg PO HS #30 tablet 07/28/16 Nystatin 100,000 Unit/gm Powd 1 applic TOPICAL BID #20 applic 07/28/16 [Mycostatin Powder] Oxymorphone HCl [Opana ER] 40 mg PO Q8H #90 tab.er.12h 07/28/16 Pantoprazole [Protonix] 40 mg PO HS #30 tablet. 07/28/16 Potassium Chloride ER [K-Dur 20] 20 meq PO BID #60 tab.er.prt 07/28/16 Triamcinolone 0.1% Ointment 1 applic TOPICAL BID #60 gm 07/28/16 [Kenalog] buPROPion [Wellbutrin] 100 mg PO BID #60 tab 07/28/16 Allergies Allergy/AdvReac Type Severity Reaction Status Date / Time aspirin Allergy Unknown Verified 10/05/16 19:08 ciprofloxacin [From Cipro] Allergy Swelling Verified 10/05/16 19:08 ciprofloxacin HCl Allergy Swelling Verified 10/05/16 19:08 [From Cipro] levofloxacin [From Levaquin] Allergy Rash/Hives Verified 10/05/16 19:08 Penicillins Allergy Rash/Hives Verified 10/05/16 19:08 Review of Systems ROS Other: All systems not noted in ROS Statement are negative. <Miles Mueller - Last Filed: 10/05/16 19:36> ROS Other: All systems not noted in ROS Statement are negative. <Owen Suárez - Last Filed: 10/05/16 20:35> ROS Statement: Those systems with pertinent positive or pertinent negative responses have been documented in the HPI. 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 complicated by a wrist drop and chronic contractures and muscle atrophy in the left upper extremity, complex regional pain syndrome, reflex sympathetic dystrophy, pancreatitis, morbid obesity, history of hemorrhagic cystitis, history of chronic pain, history of GI bleeds, cellulitis, septic in 2016 fromUTI History of Any Multi-Drug Resistant Organisms: MRSA Date of last positivie culture/infection: 07/20/16 MDRO Source:: Urine Past Surgical History: Appendectomy, Section, Cholecystectomy Additional Past Surgical History / Comment(s): bowel resection, breast reduction , bilateral ACL repair, left brachial tumor biopsy and lymph node removed, bilateral knee surgery Past Anesthesia/Blood Transfusion Reactions: No Reported Reaction Past Psychological History: Depression Additional Psychological History / Comment(s): PT SAW DR MALIK DEVRIES IN [facility]([address]) [phone] AFIA TELLEZ . Smoking Status: Never smoker Past Alcohol Use History: None Reported Additional Past Alcohol Use History / Comment(s): Patient states that she is a lifelong nonsmoker. She denies any medical marijuana, marijuana or street drug or alcohol use. Patient lives at home with her and 2 sons that are 20 and 22 years of age. There is a cat in the home. Patient is currently residing at [facility] for rehab. Past Drug Use History: None Reported - Past Family History Daughter(s) Family Medical History: No Reported History Father Family Medical History: Diabetes Mellitus Additional Family Medical History / Comment(s): GOUT- ANY OTHER HS UNK Mother Additional Family Medical History / Comment(s): of LUNG DISEASE <Miles Mueller - Last Filed: 10/05/16 19:36> General Exam General appearance: alert, in no apparent distress Head exam: Present: atraumatic, normocephalic, normal inspection Eye exam: Present: normal appearance, PERRL, EOMI. Absent: scleral icterus, conjunctival injection, periorbital swelling ENT exam: Present: mucous membranes dry Neck exam: Present: normal inspection. Absent: tenderness, meningismus, lymphadenopathy Respiratory exam: Present: decreased breath sounds. Absent: respiratory distress, wheezes, rales, rhonchi, stridor Cardiovascular Exam: Present: regular rate, normal rhythm, normal heart sounds. Absent: systolic murmur, diastolic murmur, rubs, gallop, clicks GI/Abdominal exam: Present: soft, normal bowel sounds, other (Obese with first- degree and some second-degree skin erosion underneath her panniculus was bilaterally). Absent: distended, tenderness, guarding, rebound, rigid Extremities exam: Present: full ROM, tenderness, normal capillary refill, other (Examination her back reveals approximately 10% total by surface area of decubitus ulceration first and second-degree.). Absent: pedal edema, joint swelling, calf tenderness Back exam: Present: normal inspection Neurological exam: Present: alert, oriented X3, CN II-XII intact Psychiatric exam: Present: flat affect Skin exam: Present: warm, dry, other (As above). Absent: intact, normal color, rash <Miles Mueller - Last Filed: 10/05/16 19:36> <Owen Suárez - Last Filed: 10/05/16 20:35> - General Exam Comments Initial Comments: Is a well-developed obese female she does appear this IV awake and alert (Miles Mueller) Course <Miles Mueller - Last Filed: 10/05/16 19:36> <Owen Suárez - Last Filed: 10/05/16 20:35> Vital Signs 10/05/16 10/05/16 17:57 19:08 Temperature 98.7 F 98.1 F Pulse Rate 80 71 Respiratory 16 16 Rate Blood Pressure 87/50 106/57 O2 Sat by Pulse 94 L 97 Oximetry - Reevaluation(s) Reevaluation #1: 10/05/16 19:21 The patient was endorsed to Dr. Suárez at our shift change. He will make the final disposition (Miles Mueller) Medical Decision Making - Lab Data Result diagrams: 10/05/16 18:36 10/05/16 18:36 - EKG Data -: EKG Interpreted by Me EKG shows normal: sinus rhythm (EKG shows a sinus rhythm of 74. Interval 164 QRS duration 100 QT/QTC of 434/481, prolonged QT, minimal voltage criteria for LVH no acute ST-T wave changes.) <Miles Mueller - Last Filed: 10/05/16 19:36> - Lab Data Result diagrams: 10/05/16 18:36 10/05/16 18:36 <Owen Suárez - Last Filed: 10/05/16 20:35> - Medical Decision Making The patient was signed out to me by Dr. Mueller to follow-up her labwork. The patient does have acute encephalopathy likely secondary to urinary tract infection. I started her on Rocephin. The patient has been on cephalosporins before and has tolerated them. Previous urine cultures do show susceptibilities to ceftriaxone. The patient will be admitted under Dr. Telles' s service and she agrees with admission. The patient was updated and agrees with the plan. All questions were answered. (Owen Suárez) - Lab Data Lab Results 10/05/16 10/05/16 10/05/16 Range/Units 18:36 18:36 18:36 WBC 5.9 (3.8-10.6) k/uL RBC 3.99 (3.80-5.40) m/uL Hgb 12.6 (11.4-16.0) gm/dL Hct 36.3 (34.0-46.0) % MCV 91.1 (80.0-100.0) fL MCH 31.6 (25.0-35.0) pg MCHC 34.7 (31.0-37.0) g/dL RDW 13.8 (11.5-15.5) % Plt Count 171 (150-450) k/uL Neutrophils % 49 % Lymphocytes % 35 % Monocytes % 6 % Eosinophils % 7 % Basophils % 1 % Neutrophils # 2.9 (1.3-7.7) k/uL Lymphocytes # 2.0 (1.0-4.8) k/uL Monocytes # 0.4 (0-1.0) k/uL Eosinophils # 0.4 (0-0.7) k/uL Basophils # 0.1 (0-0.2) k/uL Sodium 144 (137-145) mmol/L Potassium 4.1 (3.5-5.1) mmol/L Chloride 108 H (98-107) mmol/L Carbon Dioxide 28 (22-30) mmol/L Anion Gap 8 mmol/L BUN 17 (7-17) mg/dL Creatinine 0.86 (0.52-1.04) mg/dL Est GFR (MDRD) Af Amer >60 (>60 ml/min/1.73 sqM) Est GFR (MDRD) Non-Af >60 (>60 ml/min/1.73 sqM) Glucose 107 H (74-99) mg/dL Plasma Lactic Acid Jesus (0.7-2.0) mmol/L Calcium 10.5 H (8.4-10.2) mg/dL Magnesium 2.2 (1.6-2.3) mg/dL Total Bilirubin 0.8 (0.2-1.3) mg/dL AST 46 H (14-36) U/L ALT 23 (9-52) U/L Alkaline Phosphatase 107 (38-126) U/L Total Creatine Kinase 180 H (30-135) U/L CK-MB (CK-2) 2.5 H* (0.0-2.4) ng/mL CK-MB (CK-2) Rel Index 1.4 Total Protein 6.8 (6.3-8.2) g/dL Albumin 3.4 L (3.5-5.0) g/dL Amylase 52 (30-110) U/L Lipase 330 H (23-300) U/L Urine Color Urine Appearance (Clear) Urine pH (5.0-8.0) Ur Specific [place] (1.001-1.035) Urine Protein (Negative) Urine Glucose (UA) (Negative) Urine Ketones (Negative) Urine Blood (Negative) Urine Nitrite (Negative) Urine Bilirubin (Negative) Urine Urobilinogen (<2.0) mg/dL Ur Leukocyte Esterase (Negative) Urine RBC (0-5) /hpf Urine WBC (0-5) /hpf Ur Squamous Epith Cells (0-4) /hpf Urine Bacteria (None) /hpf Hyaline Casts (0-2) /lpf Urine Mucus (None) /hpf Urine Yeast (Budding) (None) /hpf 10/05/16 10/05/16 Range/Units 18:36 18:36 WBC (3.8-10.6) k/uL RBC (3.80-5.40) m/uL Hgb (11.4-16.0) gm/dL Hct (34.0-46.0) % MCV (80.0-100.0) fL MCH (25.0-35.0) pg MCHC (31.0-37.0) g/dL RDW (11.5-15.5) % Plt Count (150-450) k/uL Neutrophils % % Lymphocytes % % Monocytes % % Eosinophils % % Basophils % % Neutrophils # (1.3-7.7) k/uL Lymphocytes # (1.0-4.8) k/uL Monocytes # (0-1.0) k/uL Eosinophils # (0-0.7) k/uL Basophils # (0-0.2) k/uL Sodium (137-145) mmol/L Potassium (3.5-5.1) mmol/L Chloride (98-107) mmol/L Carbon Dioxide (22-30) mmol/L Anion Gap mmol/L BUN (7-17) mg/dL Creatinine (0.52-1.04) mg/dL Est GFR (MDRD) Af Amer (>60 ml/min/1.73 sqM) Est GFR (MDRD) Non-Af (>60 ml/min/1.73 sqM) Glucose (74-99) mg/dL Plasma Lactic Acid Jesus 1.2 (0.7-2.0) mmol/L Calcium (8.4-10.2) mg/dL Magnesium (1.6-2.3) mg/dL Total Bilirubin (0.2-1.3) mg/dL AST (14-36) U/L ALT (9-52) U/L Alkaline Phosphatase (38-126) U/L Total Creatine Kinase (30-135) U/L CK-MB (CK-2) (0.0-2.4) ng/mL CK-MB (CK-2) Rel Index Total Protein (6.3-8.2) g/dL Albumin (3.5-5.0) g/dL Amylase (30-110) U/L Lipase (23-300) U/L Urine Color Yellow Urine Appearance Cloudy H (Clear) Urine pH 7.5 (5.0-8.0) Ur Specific [place] 1.012 (1.001-1.035) Urine Protein Negative (Negative) Urine Glucose (UA) Negative (Negative) Urine Ketones Negative (Negative) Urine Blood Moderate H (Negative) Urine Nitrite Positive H (Negative) Urine Bilirubin Negative (Negative) Urine Urobilinogen 2.0 (<2.0) mg/dL Ur Leukocyte Esterase Large H (Negative) Urine RBC >182 H (0-5) /hpf Urine WBC 25 H (0-5) /hpf Ur Squamous Epith Cells <1 (0-4) /hpf Urine Bacteria Many H (None) /hpf Hyaline Casts 7 H (0-2) /lpf Urine Mucus Rare H (None) /hpf Urine Yeast (Budding) Few H (None) /hpf Disposition <Miles Mueller - Last Filed: 10/05/16 19:36> <Owen Suárez - Last Filed: 10/05/16 20:35> Clinical Impression: Encephalopathy, UTI (urinary tract infection) Disposition: ADMITTED IP TO THIS HOSP Condition: Stable
[2016-10-05 18:52] LABS: Basophils # (A) 0.1 k/uL (0-0.2); Basophils % (A) 1 %; CH 31.5; CHCM 34.8; Eosinophils # (A) 0.4 k/uL (0-0.7); Eosinophils % (A) 7 %; HCT 36.3 % (34.0-46.0); HDW 2.98; HGB 12.6 gm/dL (11.4-16.0); Luc # (Auto) 0.17; Luc % (Auto) 3; Lymphocytes % (A) 35 %; MCH 31.6 pg (25.0-35.0); MCHC 34.7 g/dL (31.0-37.0); MCV 91.1 fL (80.0-100.0); Mean Platelet Volume 7.6; Monocytes # (A) 0.4 k/uL (0-1.0); Monocytes % (A) 6 %; Neutrophils # (A) 2.9 k/uL (1.3-7.7); Neutrophils % (A) 49 %; RBC 3.99 m/uL (3.80-5.40); RDW 13.8 % (11.5-15.5); WBC 5.9 k/uL (3.8-10.6); WBC (Perox) 5.73
[2016-10-05 19:02] LABS: ALT 23 U/L (9-52); AST 46 U/L (14-36); Alkaline Phosphatase 107 U/L (38-126); Amylase 52 U/L (30-110); Anion Gap 8 mmol/L; Blood Urea Nitrogen 17 mg/dL (7-17); Calcium 10.5 mg/dL (8.4-10.2); Carbon Dioxide 28 mmol/L (22-30); Chloride 108 mmol/L (98-107); Glucose 107 mg/dL (74-99); Magnesium 2.2 mg/dL (1.6-2.3); Non-African American GFR(MDRD) >60 (>60 ml/min/1.73 sqM); Potassium 4.1 mmol/L (3.5-5.1); Sodium 144 mmol/L (137-145); Total Bilirubin 0.8 mg/dL (0.2-1.3); Total Protein 6.8 g/dL (6.3-8.2)
[2016-10-05 19:06] LABS: Appearance,Urine Cloudy (Clear); Bacteria,Urine Many /hpf; Bilirubin,Urine Negative (Negative); Glucose,Urine (UA) Negative (Negative); Ketones,Urine Negative (Negative); Leukocyte Esterase,Urine Large (Negative); Mucus,Urine Rare /hpf; Nitrite,Urine Positive (Negative); PH, Urine 7.5 (5.0-8.0); Particle Count 14112; Protein,Urine Negative (Negative); RBC,Urine >182 /hpf (0-5); Specific Gravity,Urine 1.012 (1.001-1.035); Squamous Epithelial Cell,Urine <1 /hpf (0-4); UA Billing (MACRO vs. MICRO) MICRO; WBC,Urine 25 /hpf (0-5)
--- NOTE | 2016-10-05 19:20 | XR ---
EXAMINATION TYPE: XR chest 1V portable DATE OF EXAM: 10/05/2016 7:15 PM COMPARISON: 07/26/2016 HISTORY: Altered mental status. COPD. TECHNIQUE: Single frontal view of the chest is obtained. FINDINGS: There is no heart failure nor confluent pneumonic infiltrate. There are no hilar masses. C ostophrenic angles are clear. IMPRESSION: No active cardiopulmonary disease. There is clearing of the minimal atelectasis compared to old exam.
[2016-10-05 19:24] LABS: Creatine Kinase MB 2.5 ng/mL (0.0-2.4)
[2016-10-05] MEDS ORDERED: NALOXONE 0.4 MG/ML 1 ML VIAL IV PRN (20:30)
[2016-10-05] MEDS ORDERED: ALBUTEROL NEBULIZED 2.5 MG/3 ML INHALATION PRN (20:32)
[2016-10-05] MEDS ORDERED: oxyCODONE-APAP 10-325MG 1 EACH TAB PO PRN (20:32)
[2016-10-05] MEDS ORDERED: OXYMORPHONE HCL 40 MG PO SCH (20:45)
[2016-10-05] MEDS ORDERED: LACTULOSE 20 GM/30 ML CUP PO ONE (21:30)
[2016-10-05] MEDS: buPROPion 100 MG TAB PO SCH (22:14)
[2016-10-05] MEDS: PANTOPRAZOLE 40 MG TABLET PO SCH (22:14)
[2016-10-05] MEDS: MIRTAZAPINE 15 MG TAB PO SCH (22:14)
[2016-10-05] MEDS: METOPROLOL TARTRATE 25 MG TAB PO SCH (22:14)
[2016-10-05] MEDS: POTASSIUM CHLORIDE ER 20 MEQ TAB.ER PO SCH (22:14)
[2016-10-05 22:37] VITALS: BMI 57.6
[2016-10-06] MEDS: LACTULOSE 20 GM/30 ML CUP PO SCH ×3 (08:30→23:58)
[2016-10-06] MEDS: POTASSIUM CHLORIDE ER 20 MEQ TAB.ER PO SCH ×2 (08:30→20:37)
[2016-10-06] MEDS: METOPROLOL TARTRATE 25 MG TAB PO SCH ×2 (08:30→20:37)
[2016-10-06] MEDS: buPROPion 100 MG TAB PO SCH ×2 (08:30→20:37)
[2016-10-06] MEDS: LOSARTAN 50 MG TAB PO SCH (08:30)
[2016-10-06] MEDS ORDERED: LACTULOSE 20 GM/30 ML CUP PO SCH (09:00)
[2016-10-06] MEDS ORDERED: ALPRAZolam 0.25 MG TAB PO PRN (10:13)
[2016-10-06] MEDS: oxyCODONE-APAP 10-325MG 1 EACH TAB PO PRN ×2 (11:57→18:23)
[2016-10-06] MEDS: FUROSEMIDE 40 MG TAB PO SCH ×2 (11:59→18:18)
[2016-10-06] MEDS: MULTIVITAMINS, THERA 1 EACH TAB PO SCH (11:59)
--- NOTE | 2016-10-06 17:36 | P.HPIM ---
History of Present Illness H&P Date: 10/06/16 Chief Complaint: Mental status change his is a 46-year-old female one of my patient with a previous medical history significant for schwannoma status post resection and the left brachial plexus with resultant left wrist drop and complex regional pain syndrome (CRPS), esophageal varices admitted to the hospital secondary to acute metabolic encephalopathy. She was found to have acute urinary tract infection. In the emergency room, she was found to have elevated serum ammonia levels, also elevated lipase, she was investigated in the past for chronic liver disease that was negative, no history of jaundice or hepatitis, patient was started on IV antibiotics for the UTI as well as lactulose for the elevated ammonia levels. Consults will be made with Dr. Vishal CASTILLO, cultures have been sent 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 complicated by a wrist drop and chronic contractures and muscle atrophy in the left upper extremity, complex regional pain syndrome, reflex sympathetic dystrophy, pancreatitis, morbid obesity, history of hemorrhagic cystitis, history of chronic pain, history of GI bleeds, cellulitis, septic in 2016 fromUTI History of Any Multi-Drug Resistant Organisms: MRSA Date of last positivie culture/infection: 07/20/16 MDRO Source:: Urine Past Surgical History: Appendectomy, Section, Cholecystectomy Additional Past Surgical History / Comment(s): bowel resection, breast reduction , bilateral ACL repair, left brachial tumor biopsy and lymph node removed, bilateral knee surgery Past Anesthesia/Blood Transfusion Reactions: No Reported Reaction Past Psychological History: Depression Additional Psychological History / Comment(s): PT SAW DR MALIK DEVRIES IN [facility]([address]) [phone] AFIA TELLEZ [phone]. Smoking Status: Never smoker Past Alcohol Use History: None Reported Additional Past Alcohol Use History / Comment(s): Patient states that she is a lifelong nonsmoker. She denies any medical marijuana, marijuana or street drug or alcohol use. Patient lives at home with her and 2 sons that are 20 and 22 years of age. There is a cat in the home. Patient is currently residing at [facility] for rehab. Past Drug Use History: None Reported - Past Family History Daughter(s) Family Medical History: No Reported History Father Family Medical History: Diabetes Mellitus Additional Family Medical History / Comment(s): GOUT- ANY OTHER HS UNK Mother Additional Family Medical History / Comment(s): of LUNG DISEASE Medications and Allergies Home Medications Medication Instructions Recorded Confirmed Type Cranberry Conc/C/Bacill Coag 1 tab PO DAILY 07/13/15 10/05/16 History [Cranberry Tablet] Multivitamins, Thera [Multivitamin 1 tab PO DAILY 07/05/16 10/05/16 History (formulary)] oxyCODONE-APAP 10-325MG [Percocet 1 tab PO Q6HR PRN 10/05/16 10/05/16 History 10-325 mg] Nitrofurantoin Monohyd/M-Cryst 100 mg PO BID 10/08/16 10/08/16 History [Macrobid] Allergies Allergy/AdvReac Type Severity Reaction Status Date / Time aspirin Allergy Unknown Verified 10/05/16 19:08 ciprofloxacin [From Cipro] Allergy Swelling Verified 10/05/16 19:08 ciprofloxacin HCl Allergy Swelling Verified 10/05/16 19:08 [From Cipro] levofloxacin [From Levaquin] Allergy Rash/Hives Verified 10/05/16 19:08 Penicillins Allergy Rash/Hives Verified 10/05/16 19:08 Physical Exam Vitals: Vital Signs Temp Pulse Pulse Resp BP BP Pulse Ox 10/06/16 15:00 98.7 F 85 141/98 98 10/06/16 08:29 98.4 F 69 18 120/72 98 10/06/16 03:07 98.3 F 103 H 17 110/67 98 10/06/16 00:00 103 H 17 10/05/16 22:00 18 10/05/16 21:25 98.2 F 71 17 104/70 98 10/05/16 21:05 97.5 F L 70 16 10/05/16 20:56 97.8 F 18 10/05/16 20:46 97.5 F L 71 16 106/61 98 Intake and Output 10/06/16 10/06/16 10/06/16 06:59 14:59 22:59 Output Total 800 1200 1600 Balance -800 -1200 -1600 Output: Urine 800 1200 1600 Uretheral (Diaz) 800 1200 1600 Other: Voiding Method Indwelling Catheter Indwelling Catheter # Bowel Movements 1 Weight 133.81 kg - Constitutional General appearance: cooperative, morbidly obese - EENT Eyes: anicteric sclerae, EOMI, PERRLA, dentition normal, normal appearance ENT: hearing grossly normal, NA/AT, normal oropharynx - Neck Neck: normal ROM - Respiratory Respiratory: bilateral: CTA, negative: diminished, dullness, rales, rhonchi - Cardiovascular Rhythm: regular Heart sounds: normal: S1, S2 Abnormal Heart Sounds: no systolic murmur, no diastolic murmur, no rub, no S3 Gallop, no S4 Gallop, no click, no other - Gastrointestinal General gastrointestinal: normal bowel sounds, soft - Integumentary Integumentary: normal, rash (Posterior lower extremity shows multiple areas of excoriation from chronic pressure and moisture, this is better from her last admission in July follows with the wound care clinic) - Neurologic Neurologic: CNII-XII intact - Musculoskeletal Musculoskeletal: generalized weakness, strength equal bilaterally - Psychiatric Psychiatric: A&O x's 3, appropriate affect, intact judgment & insight Results CBC & Chem 7: 10/08/16 08:11 10/08/16 08:11 Labs: Laboratory Results WBC 5.9 k/uL (3.8-10.6) 10/05/16 18:36 RBC 3.99 m/uL (3.80-5.40) 10/05/16 18:36 Hgb 12.6 gm/dL (11.4-16.0) 10/05/16 18:36 Hct 36.3 % (34.0-46.0) 10/05/16 18:36 MCV 91.1 fL (80.0-100.0) 10/05/16 18:36 MCH 31.6 pg (25.0-35.0) 10/05/16 18:36 MCHC 34.7 g/dL (31.0-37.0) 10/05/16 18:36 RDW 13.8 % (11.5-15.5) 10/05/16 18:36 Plt Count 171 k/uL (150-450) 10/05/16 18:36 Neutrophils % 49 % 10/05/16 18:36 Lymphocytes % 35 % 10/05/16 18:36 Monocytes % 6 % 10/05/16 18:36 Eosinophils % 7 % 10/05/16 18:36 Basophils % 1 % 10/05/16 18:36 Neutrophils # 2.9 k/uL (1.3-7.7) 10/05/16 18:36 Lymphocytes # 2.0 k/uL (1.0-4.8) 10/05/16 18:36 Monocytes # 0.4 k/uL (0-1.0) 10/05/16 18:36 Eosinophils # 0.4 k/uL (0-0.7) 10/05/16 18:36 Basophils # 0.1 k/uL (0-0.2) 10/05/16 18:36 Sodium 144 mmol/L (137-145) 10/05/16 18:36 Potassium 4.1 mmol/L (3.5-5.1) 10/05/16 18:36 Chloride 108 mmol/L (98-107) H 10/05/16 18:36 Carbon Dioxide 28 mmol/L (22-30) 10/05/16 18:36 Anion Gap 8 mmol/L 10/05/16 18:36 BUN 17 mg/dL (7-17) 10/05/16 18:36 Creatinine 0.86 mg/dL (0.52-1.04) 10/05/16 18:36 Est GFR (MDRD) Af Amer >60 (>60 ml/min/1.73 sqM) 10/05/16 18:36 Est GFR (MDRD) Non-Af >60 (>60 ml/min/1.73 sqM) 10/05/16 18:36 Glucose 107 mg/dL (74-99) H 10/05/16 18:36 Plasma Lactic Acid Jesus 1.2 mmol/L (0.7-2.0) 10/05/16 18:36 Calcium 10.5 mg/dL (8.4-10.2) H 10/05/16 18:36 Magnesium 2.2 mg/dL (1.6-2.3) 10/05/16 18:36 Total Bilirubin 0.8 mg/dL (0.2-1.3) 10/05/16 18:36 AST 46 U/L (14-36) H 10/05/16 18:36 ALT 23 U/L (9-52) 10/05/16 18:36 Alkaline Phosphatase 107 U/L (38-126) 10/05/16 18:36 Ammonia 180 umol/L (<30) H 10/05/16 20:25 Total Creatine Kinase 180 U/L (30-135) H 10/05/16 18:36 CK-MB (CK-2) 2.5 ng/mL (0.0-2.4) H* 10/05/16 18:36 CK-MB (CK-2) Rel Index 1.4 10/05/16 18:36 Total Protein 6.8 g/dL (6.3-8.2) 10/05/16 18:36 Albumin 3.4 g/dL (3.5-5.0) L 10/05/16 18:36 Amylase 52 U/L (30-110) 10/05/16 18:36 Lipase 330 U/L (23-300) H 10/05/16 18:36 Urine Color Yellow 10/05/16 18:36 Urine Appearance Cloudy (Clear) H 10/05/16 18:36 Urine pH 7.5 (5.0-8.0) 10/05/16 18:36 Ur Specific [place] 1.012 (1.001-1.035) 10/05/16 18:36 Urine Protein Negative (Negative) 10/05/16 18:36 Urine Glucose (UA) Negative (Negative) 10/05/16 18:36 Urine Ketones Negative (Negative) 10/05/16 18:36 Urine Blood Moderate (Negative) H 10/05/16 18:36 Urine Nitrite Positive (Negative) H 10/05/16 18:36 Urine Bilirubin Negative (Negative) 10/05/16 18:36 Urine Urobilinogen 2.0 mg/dL (<2.0) 10/05/16 18:36 Ur Leukocyte Esterase Large (Negative) H 10/05/16 18:36 Urine RBC >182 /hpf (0-5) H 10/05/16 18:36 Urine WBC 25 /hpf (0-5) H 10/05/16 18:36 Ur Squamous Epith Cells <1 /hpf (0-4) 10/05/16 18:36 Urine Bacteria Many /hpf (None) H 04/13/17 18:36 Hyaline Casts 7 /lpf (0-2) H 10/05/16 18:36 Urine Mucus Rare /hpf (None) H 10/05/16 18:36 Urine Yeast (Budding) Few /hpf (None) H 10/05/16 18:36 Thrombosis Risk Factor Assmnt - Choose All That Apply Any of the Below Risk Factors Present?: Yes Each Factor Represents 1 point: Age 41-60 years, Obesity (BMI >25) Each Risk Factor Represents 2 Points: Patient confined to bed Other congenital or acquired thrombophilia - If yes, enter type in comment: No Thrombosis Risk Factor Assessment Total Risk Factor Score: 4 Thrombosis Risk Factor Assessment Level: Moderate Risk Assessment and Plan Plan: 1. Altered level of consciousness secondary acute urinary tract infection elevated levels of ammonia , no signs of cholestasis, patient will be started on Rocephin 1 g every 24 hours await blood cultures and urine cultures. 2. Acute mild pancreatitis with the current level of 330 from an upper limit normal of 300, prior history of pancreatic duct stenosis status post stenting, as would be monitored GI would also follow 3. Chronic hyper ammonia levels previous workup in the past in July shows a normal cerebral plasmin, negative for tumor markers, lactulose would be increased from 1/d now to 3 times a day 20 g, last CAT scan of the abdomen and pelvis 07/26/2016 shows liver showing no focal defects. In his enlarged no signs of pancreatic mass at the time. We will also consult gastroenterology secondary to etiology of hepatic encephalopathy 4. History of hydronephrosis. Was under the care of urology in the past. Computed tomography scan did not show any evidence of any hydronephrosis. 5. Supermorbid obesity with BMI 72 with WEI and OHS will continue with CPAP. 6. History of Schwanoma of the left brachial plexus with resultant chronic regional pain syndrome (CRPS).will continue with current pain management with Opana ER and percocet for breakthrough pain. 7. History of Fibromyalgia. Continue current pain management. Continue Flexeril 10 mg orally 3 times every day. 8. Chronic anemia 9. Depression.will continue with bupropion 100 mg po bid and Remeron 15 mg orally bedtime. 10. 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 11.Chronic pain syndrome.will continue with current pain management. 12. Chronic posterior extremity rash from chronic pressure and chronic moisture , she has some topical creams for this 13.DVT prophylaxis.will continue with heparin 5000 units subcutaneously every 8 hours. 14. GI prophylaxis.will continue with protonix 40 mg po daily. 15.Full code.
[2016-10-06] MEDS: MIRTAZAPINE 15 MG TAB PO SCH (20:37)
[2016-10-06] MEDS: ONDANSETRON 4 MG/2 ML VIAL IVP PRN (20:37)
[2016-10-06] MEDS: PANTOPRAZOLE 40 MG TABLET PO SCH (20:37)
[2016-10-07] MEDS: oxyCODONE-APAP 10-325MG 1 EACH TAB PO PRN ×5 (00:05→22:32)
[2016-10-07] MEDS: TRIAMCINOLONE ACET 0.1% OINTMENT 80 GM TUBE TOPICAL SCH ×3 (02:40→22:34)
[2016-10-07] MEDS: NYSTATIN 100,000 UNIT/GM POWD 15 GM TOPICAL SCH ×3 (02:40→22:31)
[2016-10-07] MEDS: ONDANSETRON 4 MG/2 ML VIAL IVP PRN ×3 (03:45→20:53)
[2016-10-07 07:12] LABS: Basophils % (A) 1 %; CH 31.3; CHCM 34.1; Eosinophils # (A) 0.1 k/uL (0-0.7); Eosinophils % (A) 1 %; HCT 33.7 % (34.0-46.0); HDW 2.97; HGB 11.4 gm/dL (11.4-16.0); Luc # (Auto) 0.18; Luc % (Auto) 3; Lymphocytes # (A) 2.2 k/uL (1.0-4.8); Lymphocytes % (A) 30 %; MCH 31.2 pg (25.0-35.0); MCHC 33.8 g/dL (31.0-37.0); MCV 92.2 fL (80.0-100.0); Mean Platelet Volume 7.6; Monocytes # (A) 0.4 k/uL (0-1.0); Monocytes % (A) 6 %; Neutrophils # (A) 4.5 k/uL (1.3-7.7); Neutrophils % (A) 60 %; RBC 3.65 m/uL (3.80-5.40); WBC 7.4 k/uL (3.8-10.6); WBC (Perox) 7.41
[2016-10-07 07:31] LABS: ALT 29 U/L (9-52); AST 33 U/L (14-36); Alkaline Phosphatase 104 U/L (38-126); Anion Gap 7 mmol/L; Blood Urea Nitrogen 9 mg/dL (7-17); Calcium 10.3 mg/dL (8.4-10.2); Carbon Dioxide 24 mmol/L (22-30); Chloride 110 mmol/L (98-107); Glucose 87 mg/dL (74-99); Non-African American GFR(MDRD) >60 (>60 ml/min/1.73 sqM); Potassium 3.7 mmol/L (3.5-5.1); Sodium 141 mmol/L (137-145); Total Bilirubin 1.2 mg/dL (0.2-1.3); Total Protein 6.2 g/dL (6.3-8.2)
[2016-10-07] MEDS: buPROPion 100 MG TAB PO SCH ×2 (08:59→22:33)
[2016-10-07] MEDS: POTASSIUM CHLORIDE ER 20 MEQ TAB.ER PO SCH ×2 (08:59→22:32)
[2016-10-07] MEDS: LACTULOSE 20 GM/30 ML CUP PO SCH ×3 (08:59→22:32)
[2016-10-07] MEDS: METOPROLOL TARTRATE 25 MG TAB PO SCH ×2 (09:02→22:34)
[2016-10-07] MEDS: HEPARIN SODIUM,PORCINE 5,000 UNIT/ML 1 ML VIAL SQ SCH ×2 (12:58→16:20)
[2016-10-07] MEDS: MULTIVITAMINS, THERA 1 EACH TAB PO SCH (12:59)
[2016-10-07] MEDS: LOSARTAN 50 MG TAB PO SCH (13:03)
[2016-10-07] MEDS: FUROSEMIDE 40 MG TAB PO SCH ×2 (13:03→16:20)
--- NOTE | 2016-10-07 13:54 | CONS ---
DATE OF CONSULTATION: 10/07/2016 REASON FOR CONSULTATION: Altered mental status and increased ammonia level. HISTORY OF PRESENT ILLNESS: The patient is a 46-year-old white female admitted to the hospital because of altered mental status and when she came into the emergency room she was noted to have elevated ammonia level and hence we are consulted in regards to this issue. The patient was also diagnosed with urinary tract infection and was started on broad-spectrum antibiotics. At the time of admission to the hospital, serum ammonia level was 180 and today it is down to 58. Patient had a similar episode that happened about 2 months ago. She does not have any history of chronic liver disease in the past. No history of jaundice or hepatitis. She was investigated and workup for chronic liver disease was negative. In fact, her CAT scan in July 2016 did not show any liver abnormalities on the imaging study also. In any event, she was started on oral lactulose and hyperammonia has improved and her altered mental status has significantly ( ). In fact, right now she is alert and oriented and able to give a good history. She denies any abdominal pain. She did have some nausea, vomiting yesterday, and diarrhea after taking the lactulose. No rectal bleeding or melena. Her past medical history is significant for morbid obesity, bedridden for the last 3 years, Pickwickian syndrome, kidney stones, history of schwannoma of the brachial plexus for which she underwent surgery and developed a wrist drop, chronic pain. PAST SURGICAL HISTORY: , cholecystectomy, appendectomy, bowel resection, breast reduction, left brachial tumor biopsy and surgery for schwannoma. MEDICATIONS: Percocet, multivitamin, Coreg. Allergies to ASPIRIN, CIPRO, PENICILLIN, LEVAQUIN. FAMILY HISTORY: Father has diabetes mellitus. Mother had lung disease REVIEW OF SYSTEMS: CARDIOPULMONARY: She denies any chest pain or shortness of breath. GENITOURINARY: No dysuria or hematuria. MUSCULOSKELETAL: Unremarkable. SKIN: Unremarkable. ENDOCRINE: Unremarkable. PSYCHIATRY; Unremarkable. NEUROLOGY: Unremarkable. ENT/Vision: Unremarkable. CONSTITUTIONAL: No recent weight loss. No fever, chills, night sweats. Home medications include Protonix, Opana, Mycostatin powder, multivitamin, Remeron, Lopressor, Cephulac, Lasix, Flexeril, cranberry tablet, Xanax, Percocet, Wellbutrin. On physical examination, she appears comfortable in no apparent distress. Vital signs are stable. Blood pressure 106/77, pulse is 76, temperature 99.4. HEENT EXAMINATION: Unremarkable. Conjunctivae pink. Sclerae anicteric. Oral cavity, no lesions. NECK: No JVD or lymph node enlargement. Chest was clear to auscultation. HEART: Regular rate and rhythm. ABDOMEN: Soft. It was obese. It was nontender, nondistended. Liver and spleen not palpable. Bowel sounds are positive. No organomegaly. EXTREMITIES: No pedal edema. SKIN: No rashes. NEURO: Alert and oriented x3. No focal deficits. LABS: WBC 7.4, hemoglobin 11.4, platelets are normal. AST, ALT, T-bili, alkaline phosphatase are within normal limits. Ammonia level was 180, this morning it is 58. PT, INR is within normal limits. Lipase was slightly elevated 330, this morning it is 332. Amylase is normal at 52. Urinalysis showed blood moderate, nitrate positive, leukocyte esterase large, cultures pending. IMPRESSION: This is a lady with morbid obesity, bedridden for the last 3 years, presents to the hospital with altered mental status and subsequently diagnosed with urinary tract infection and was started on broad-spectrum antibiotics. She was also noted to have elevated ammonia level at 180, which after oral lactulose is down to 58. Mental status has significantly improved. At this time it is unclear whether we are dealing with hepatic encephalopathy or the altered mental status was related to urinary tract infection/sepsis. In any event, her symptoms are better now. She does not have any history of chronic liver disease per history or on recent imaging studies or on biochemical parameters, but of occult liver disease cannot be entirely excluded. RECOMMENDATIONS: 1. Agree with broad-spectrum antibiotics for UTI. 2. Continue with oral lactulose and titrate it so that she has 3 to 4 bowel movements daily. 3. No need to investigate any further for chronic liver disease. At this time, we will follow with you closely during her hospital stay. Thank you for this consultation.
[2016-10-07] MEDS: SODIUM CHLORIDE 0.9% 1,000 ML IV SCH (16:19)
[2016-10-07] MEDS: PANTOPRAZOLE 40 MG TABLET PO SCH (22:33)
[2016-10-07] MEDS: MIRTAZAPINE 15 MG TAB PO SCH (22:34)
[2016-10-08] MEDS: HEPARIN SODIUM,PORCINE 5,000 UNIT/ML 1 ML VIAL SQ SCH ×2 (00:27→09:09)
[2016-10-08] MEDS: oxyCODONE-APAP 10-325MG 1 EACH TAB PO PRN ×2 (06:29→14:19)
[2016-10-08 07:14] VITALS: RESP 16
[2016-10-08 08:26] VITALS: BP 132/72; PULSE 71; TEMP 97.8
[2016-10-08] MEDS: LACTULOSE 20 GM/30 ML CUP PO SCH ×2 (08:30→17:07)
[2016-10-08 08:32] LABS: Basophils # (A) 0.1 k/uL (0-0.2); Basophils % (A) 1 %; CH 31.8; CHCM 35.1; Eosinophils # (A) 0.3 k/uL (0-0.7); Eosinophils % (A) 4 %; HCT 35.8 % (34.0-46.0); HDW 3.14; HGB 12.6 gm/dL (11.4-16.0); Luc # (Auto) 0.23; Luc % (Auto) 3; Lymphocytes # (A) 3.1 k/uL (1.0-4.8); Lymphocytes % (A) 43 %; MCH 31.9 pg (25.0-35.0); MCHC 35.1 g/dL (31.0-37.0); Mean Platelet Volume 7.8; Monocytes # (A) 0.5 k/uL (0-1.0); Monocytes % (A) 6 %; Neutrophils # (A) 3.1 k/uL (1.3-7.7); Neutrophils % (A) 43 %; RBC 3.93 m/uL (3.80-5.40); RDW 13.9 % (11.5-15.5); WBC 7.2 k/uL (3.8-10.6); WBC (Perox) 7.18
[2016-10-08] MEDS: FUROSEMIDE 40 MG TAB PO SCH (09:10)
[2016-10-08] MEDS: LOSARTAN 50 MG TAB PO SCH (09:10)
[2016-10-08] MEDS: METOPROLOL TARTRATE 25 MG TAB PO SCH (09:10)
[2016-10-08] MEDS: NYSTATIN 100,000 UNIT/GM POWD 15 GM TOPICAL SCH (09:10)
[2016-10-08] MEDS: buPROPion 100 MG TAB PO SCH (09:10)
[2016-10-08] MEDS: POTASSIUM CHLORIDE ER 20 MEQ TAB.ER PO SCH (09:11)
[2016-10-08] MEDS: TRIAMCINOLONE ACET 0.1% OINTMENT 80 GM TUBE TOPICAL SCH (09:11)
[2016-10-08 09:35] LABS: ALT 29 U/L (9-52); AST 33 U/L (14-36); Alkaline Phosphatase 96 U/L (38-126); Anion Gap 7 mmol/L; Blood Urea Nitrogen 8 mg/dL (7-17); Calcium 10.7 mg/dL (8.4-10.2); Carbon Dioxide 27 mmol/L (22-30); Chloride 112 mmol/L (98-107); Glucose 79 mg/dL (74-99); Non-African American GFR(MDRD) >60 (>60 ml/min/1.73 sqM); Potassium 3.3 mmol/L (3.5-5.1); Sodium 146 mmol/L (137-145); Total Bilirubin 1.1 mg/dL (0.2-1.3); Total Protein 6.6 g/dL (6.3-8.2)
--- NOTE | 2016-10-08 12:15 | PN ---
The patient is a 46-year-old pleasant lady admitted to the hospital with altered mental status possible hepatic encephalopathy, possibly secondary to UTI presently on antibiotics and overall she is doing better. She still complains of some upper abdominal pain. She had some nausea and vomiting yesterday on a clear liquid diet, tolerating well. This morning she is feeling hungry. No fever, chills, night sweats. On physical examination, appears comfortable in no apparent distress. Vitals as are stable. 108/68, pulse is 78, temperature 98. HEENT: Unremarkable. Conjunctivae pink. Sclerae anicteric. Oral cavity, no lesions. NECK: No JVD or lymph node enlargement. Chest was clear to auscultation. HEART: Regular rate and rhythm. ABDOMEN: Soft. It was obese. Mild tenderness in the upper abdomen. EXTREMITIES: No pedal edema. SKIN: No rashes. NEURO: Alert and oriented x2. No focal deficits. Labs from today, WBC 7.2, hemoglobin 12.6. Platelets are 126. The rest of the labs are still pending. IMPRESSION: 1. Altered mental status probably related to hepatic encephalopathy because of elevated ammonia level. However, she does not have any history of chronic underlying liver disease acute liver disease cannot be excluded, especially fatty liver disease with her overall medical condition. In any event, with oral lactulose, ammonia level has significantly improved, but she is having diarrhea. She is presently getting lactulose 30 grams 3 times daily. 2. Mild nonspecific elevation of lipase but clinically no evidence of pancreatitis. 3. Nausea, vomiting, gradually improving. RECOMMENDATIONS: 1. Hold the lactulose and titrate it so that she has 3 bowel movements daily. 2. Advance diet as tolerated. 3. Continue with antiemetics and PPIs and will follow her closely. Thank you for this consultation.
--- NOTE | 2016-10-08 12:50 | DS ---
DATE OF ADMISSION: 10/05/2016 DATE OF DISCHARGE: ADMISSION DIAGNOSES: 1. Altered mental status with elevated ammonia level. 2. Mild pancreatitis. DISCHARGE DIAGNOSES: 1. Altered mental status, resolved. 2. Mild pancreatitis, resolved. HOSPITAL COURSE: This is a 46-year-old, morbidly obese female better than for the last 3 years, presented to the hospital with altered mental status. Patient was diagnosed with a urinary tract infection started on IV antibiotics. Her ammonia level was elevated above 100 on admission that came down to normal after given some lactulose. The patient had slight elevation in her pancreatic enzymes and she had a history of chronic pancreatitis, kept on clear liquid diet and improved and tolerated a regular diet prior to discharge. Patient was evaluated by Dr. Rodgers who felt that patient can be followed outpatient. Continue lactulose as needed and will follow up and she will follow up with her outpatient. Patient was discharged in stable condition to follow up with her primary care physician and with Dr. Rodgers in her office.
[2016-10-08] MEDS: MULTIVITAMINS, THERA 1 EACH TAB PO SCH (14:19)
[2016-10-08] MEDS: ONDANSETRON 4 MG/2 ML VIAL IVP PRN (14:20)
[2016-10-08] MEDS: SODIUM CHLORIDE 0.9% 1,000 ML IV SCH (14:27)
== END 2016-10-08 17:45 | disposition home or self-care (01) | DRG 689 ==
LOC: EC 17:55 → 3SUR 20:31
PROVIDERS: ADMIT Family Medicine; ATTEND Family Medicine
DX: N39.0 Urinary tract infection, site not specified (principal); K85.90 Acute pancreatitis without necrosis or infection, unspecified; E66.2 Morbid (severe) obesity with alveolar hypoventilation; Z68.43 Body mass index [BMI] 50.0-59.9, adult; K86.1 Other chronic pancreatitis; G90.50 Complex regional pain syndrome I, unspecified; D64.9 Anemia, unspecified; E78.5 Hyperlipidemia, unspecified; M79.7 Fibromyalgia; J45.909 Unspecified asthma, uncomplicated; J44.9 Chronic obstructive pulmonary disease, unspecified; F32.9 Major depressive disorder, single episode, unspecified; G47.33 Obstructive sleep apnea (adult) (pediatric); M19.91 Primary osteoarthritis, unspecified site; M21.332 Wrist drop, left wrist; Z86.14 Personal history of Methicillin resistant Staphylococcus aureus infection; Z74.01 Bed confinement status; Z87.442 Personal history of urinary calculi; Z90.49 Acquired absence of other specified parts of digestive tract; Z79.899 Other long term (current) drug therapy
CPT/HCPCS: 36415; 71010; 80053; 81001; 82140; 82150; 82550; 82553; 83605; 83690; 83735; 85025; 87040; 87324; 93005; 96361; 96365; 99285

== ENCOUNTER 2016-11-22 16:56 | Inpatient (IN) | payer MEDICARE, OTHER ==
[2016-11-22] MEDS ORDERED: SODIUM CHLORIDE 0.9% 1,000 ML IV ONE (17:02)
[2016-11-22 17:13] LABS: Glucose,Whole Blood 95 mg/dL (75-99)
[2016-11-22 17:29] LABS: Basophils # (A) 0.1 k/uL (0-0.2); Basophils % (A) 1 %; CH 31.5; CHCM 33.5; Eosinophils # (A) 0.2 k/uL (0-0.7); Eosinophils % (A) 5 %; HCT 35.7 % (34.0-46.0); HDW 2.41; HGB 11.9 gm/dL (11.4-16.0); Luc # (Auto) 0.17; Luc % (Auto) 3; Lymphocytes # (A) 1.6 k/uL (1.0-4.8); Lymphocytes % (A) 32 %; MCH 31.5 pg (25.0-35.0); MCHC 33.4 g/dL (31.0-37.0); MCV 94.3 fL (80.0-100.0); Monocytes # (A) 0.3 k/uL (0-1.0); Monocytes % (A) 5 %; Neutrophils # (A) 2.7 k/uL (1.3-7.7); Neutrophils % (A) 54 %; RBC 3.79 m/uL (3.80-5.40); RDW 14.1 % (11.5-15.5); WBC 5.1 k/uL (3.8-10.6); WBC (Perox) 5.16
[2016-11-22 17:39] LABS: INR 1.1 (<1.1); Partial Thromboplastin Time 25.3 sec (22.0-30.0); Prothrombin Time 11.2 sec (9.0-12.0)
[2016-11-22 17:43] LABS: ALT 41 U/L (9-52); AST 34 U/L (14-36); Alkaline Phosphatase 150 U/L (38-126); Anion Gap 7 mmol/L; Blood Urea Nitrogen 18 mg/dL (7-17); Calcium 10.8 mg/dL (8.4-10.2); Carbon Dioxide 25 mmol/L (22-30); Chloride 112 mmol/L (98-107); Creatine Kinase 37 U/L (30-135); Glucose 89 mg/dL (74-99); Magnesium 2.1 mg/dL (1.6-2.3); Non-African American GFR(MDRD) >60 (>60 ml/min/1.73 sqM); Potassium 4.5 mmol/L (3.5-5.1); Sodium 144 mmol/L (137-145); Total Bilirubin 0.7 mg/dL (0.2-1.3); Total Protein 6.4 g/dL (6.3-8.2)
--- NOTE | 2016-11-22 17:44 | CT ---
EXAMINATION TYPE: CT brain wo con DATE OF EXAM: 11/22/2016 COMPARISON: July 26, 2016 HISTORY: Altered mental status Unenhanced CT of the brain was performed. The ventricles, basal cisterns and sulci overlying the cerebral convexities demonstrate a normal appe arance. There is no evidence for intracranial hemorrhage or sulcal effacement. No mass effects are seen. Osseous calvarium is intact. If symptoms persist consider MRI as clinically warranted. IMPRESSION: 1. No acute intracranial process is seen at this time.
--- NOTE | 2016-11-22 17:46 | XR ---
EXAMINATION TYPE: XR chest 1V portable DATE OF EXAM: 11/22/2016 COMPARISON: 10/05/2016 HISTORY: Chest pain TECHNIQUE: Single frontal view of the chest is obtained. FINDINGS: There is cardiomegaly with pulmonary venous congestion. Early left perihilar infiltrate is difficult to exclude. No evidence for sizable effusion. The osseous structures are intact. IMPRESSION: 1. There is cardiomegaly with pulmonary venous congestion. Early left perihilar infiltrate is diffic ult to exclude.
[2016-11-22 17:55] LABS: Creatine Kinase MB 0.5 ng/mL (0.0-2.4); Troponin I <0.012 ng/mL (0.000-0.034)
--- NOTE | 2016-11-22 17:58 | ED ---
Altered Mental Status HPI - General Chief Complaint: Altered Mental Status Stated Complaint: Altered mental state Time Seen by Provider: 11/22/16 16:56 Source: EMS, RN notes reviewed, old records reviewed Mode of arrival: EMS Limitations: altered mental status - History of Present Illness Initial Comments: This is a 46-year-old female with a history of apparent liver failure with a recent admission for elevated ammonia levels who is back today by EMS for altered mental status. Apparently is started last night and got worse today the patient was normally conversant and per EMS her family stated that she was less responsive than usual. Her glucose was 99 she felt warm and dry per EMS she also had decreased urine output since yesterday. No other history is available this time no reported trauma fevers chills or sweats. MD Complaint: altered mental status, decreased responsiveness - Related Data Home Medications Medication Instructions Recorded Confirmed oxyCODONE-APAP 10-325MG [Percocet 1 tab PO Q6HR PRN 10/05/16 11/22/16 10-325 mg] Previous Rx's Medication Instructions Recorded ALPRAZolam [Xanax] 0.25 mg PO BID PRN #60 tablet 07/28/16 Albuterol Nebulized [Ventolin 2.5 mg INHALATION RT-Q6H PRN #120 07/28/16 Nebulized] nebu Cyclobenzaprine [Flexeril] 10 mg PO TID #90 tab 07/28/16 Furosemide [Lasix] 40 mg PO BID #60 tab 07/28/16 Lactulose [Cephulac] 20 gm PO DAILY #900 ml 07/28/16 Losartan Potassium 100 mg PO DAILY #30 tablet 07/28/16 Metoprolol Tartrate [Lopressor] 25 mg PO BID #60 tab 07/28/16 Mirtazapine [Remeron] 15 mg PO HS #30 tablet 07/28/16 Nystatin 100,000 Unit/gm Powd 1 applic TOPICAL BID #20 applic 07/28/16 [Mycostatin Powder] Oxymorphone HCl [Opana ER] 40 mg PO Q8H #90 tab.er.12h 07/28/16 Pantoprazole [Protonix] 40 mg PO HS #30 tablet. 07/28/16 Potassium Chloride ER [K-Dur 20] 20 meq PO BID #60 tab.er.prt 07/28/16 Triamcinolone 0.1% Ointment 1 applic TOPICAL BID #60 gm 07/28/16 [Kenalog] buPROPion [Wellbutrin] 100 mg PO BID #60 tab 07/28/16 Allergies Allergy/AdvReac Type Severity Reaction Status Date / Time aspirin Allergy Unknown Verified 10/05/16 19:08 ciprofloxacin [From Cipro] Allergy Swelling Verified 10/05/16 19:08 ciprofloxacin HCl Allergy Swelling Verified 10/05/16 19:08 [From Cipro] levofloxacin [From Levaquin] Allergy Rash/Hives Verified 10/05/16 19:08 Penicillins Allergy Rash/Hives Verified 10/05/16 19:08 Review of Systems ROS Statement: Those systems with pertinent positive or pertinent negative responses have been documented in the HPI. ROS Other: All systems not noted in ROS Statement are negative. Limitations: ROS unobtainable due to patients medical condition 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 complicated by a wrist drop and chronic contractures and muscle atrophy in the left upper extremity, complex regional pain syndrome, reflex sympathetic dystrophy, pancreatitis, morbid obesity, history of hemorrhagic cystitis, history of chronic pain, history of GI bleeds, cellulitis, septic in 2016 from[facility]I History of Any Multi-Drug Resistant Organisms: MRSA Date of last positivie culture/infection: 07/20/16 MDRO Source:: Urine Past Surgical History: Appendectomy, Section, Cholecystectomy Additional Past Surgical History / Comment(s): bowel resection, breast reduction , bilateral ACL repair, left brachial tumor biopsy and lymph node removed, bilateral knee surgery Past Anesthesia/Blood Transfusion Reactions: No Reported Reaction Past Psychological History: Depression Additional Psychological History / Comment(s): PT SAW DR MALIK DEVRIES IN [facility]([address]) [phone] AFIA TELLEZ . Smoking Status: Never smoker Past Alcohol Use History: None Reported Additional Past Alcohol Use History / Comment(s): Patient states that she is a lifelong nonsmoker. She denies any medical marijuana, marijuana or street drug or alcohol use. Patient lives at home with her and 2 sons that are 20 and 22 years of age. There is a cat in the home. Patient is currently residing at [facility] for rehab. Past Drug Use History: None Reported - Past Family History Daughter(s) Family Medical History: No Reported History Father Family Medical History: Diabetes Mellitus Additional Family Medical History / Comment(s): GOUT- ANY OTHER HS UNK Mother Additional Family Medical History / Comment(s): of LUNG DISEASE General Exam - General Exam Comments Initial Comments: This is a well-developed morbidly obese patient who is awake but lethargic Limitations: altered mental status General appearance: alert, lethargic Head exam: Present: atraumatic, normocephalic, normal inspection Eye exam: Present: normal appearance, PERRL, EOMI. Absent: scleral icterus, conjunctival injection, periorbital swelling ENT exam: Present: mucous membranes dry Neck exam: Present: normal inspection. Absent: tenderness, meningismus, lymphadenopathy Respiratory exam: Present: normal lung sounds bilaterally. Absent: respiratory distress, wheezes, rales, rhonchi, stridor Cardiovascular Exam: Present: regular rate, normal rhythm, normal heart sounds. Absent: systolic murmur, diastolic murmur, rubs, gallop, clicks GI/Abdominal exam: Present: soft, normal bowel sounds, other (Obese abdomen). Absent: distended, tenderness, guarding, rebound, rigid Rectal exam: Present: deferred Extremities exam: Present: normal inspection, normal capillary refill. Absent: full ROM, tenderness, pedal edema, joint swelling, calf tenderness Back exam: Present: normal inspection Neurological exam: Present: alert, oriented X3, CN II-XII intact, motor sensory deficit Psychiatric exam: Present: normal affect, normal mood Skin exam: Present: warm, dry, intact, normal color. Absent: rash Course Vital Signs 11/22/16 11/22/16 11/22/16 16:58 17:40 18:32 Temperature 98.2 F Pulse Rate 94 96 101 H Respiratory 20 18 20 Rate Blood Pressure 138/84 120/68 188/109 O2 Sat by Pulse 94 L 98 100 Oximetry 11/22/16 11/22/16 18:40 19:10 Temperature Pulse Rate 98 92 Respiratory 20 18 Rate Blood Pressure 144/86 144/81 O2 Sat by Pulse 99 99 Oximetry Medical Decision Making - Medical Decision Making I did discuss findings with the patient and family members. Patient will be admitted for evaluation of altered mental status and elevated ammonia levels. Due to the question of infiltrate the patient will have a dose of antibiotics. - Lab Data Result diagrams: 11/22/16 17:11 11/22/16 17:11 Lab Results 11/22/16 11/22/16 11/22/16 Range/Units 17:11 17:11 17:11 WBC (3.8-10.6) k/uL RBC (3.80-5.40) m/uL Hgb (11.4-16.0) gm/dL Hct (34.0-46.0) % MCV (80.0-100.0) fL MCH (25.0-35.0) pg MCHC (31.0-37.0) g/dL RDW (11.5-15.5) % Plt Count (150-450) k/uL Neutrophils % % Lymphocytes % % Monocytes % % Eosinophils % % Basophils % % Neutrophils # (1.3-7.7) k/uL Lymphocytes # (1.0-4.8) k/uL Monocytes # (0-1.0) k/uL Eosinophils # (0-0.7) k/uL Basophils # (0-0.2) k/uL PT (9.0-12.0) sec INR (<1.1) APTT (22.0-30.0) sec Sodium (137-145) mmol/L Potassium (3.5-5.1) mmol/L Chloride (98-107) mmol/L Carbon Dioxide (22-30) mmol/L Anion Gap mmol/L BUN (7-17) mg/dL Creatinine (0.52-1.04) mg/dL Est GFR (MDRD) Af Amer (>60 ml/min/1.73 sqM) Est GFR (MDRD) Non-Af (>60 ml/min/1.73 sqM) Glucose (74-99) mg/dL POC Glucose (mg/dL) 95 (75-99) mg/dL POC Glu Grief Counsellor ID Sharp, Latisha Calcium (8.4-10.2) mg/dL Magnesium (1.6-2.3) mg/dL Total Bilirubin (0.2-1.3) mg/dL AST (14-36) U/L ALT (9-52) U/L Alkaline Phosphatase (38-126) U/L Ammonia 154 H (<30) umol/L Total Creatine Kinase 37 (30-135) U/L CK-MB (CK-2) 0.5 (0.0-2.4) ng/mL CK-MB (CK-2) Rel Index 1.4 Troponin I <0.012 (0.000-0.034) ng/mL Total Protein (6.3-8.2) g/dL Albumin (3.5-5.0) g/dL Urine Color Urine Appearance (Clear) Urine pH (5.0-8.0) Ur Specific [place] (1.001-1.035) Urine Protein (Negative) Urine Glucose (UA) (Negative) Urine Ketones (Negative) Urine Blood (Negative) Urine Nitrite (Negative) Urine Bilirubin (Negative) Urine Urobilinogen (<2.0) mg/dL Ur Leukocyte Esterase (Negative) Urine Opiates Screen (NotDetected) Ur Oxycodone Screen (NotDetected) Urine Methadone Screen (NotDetected) Ur Propoxyphene Screen (NotDetected) Ur Barbiturates Screen (NotDetected) U Tricyclic Antidepress (NotDetected) Ur Phencyclidine Scrn (NotDetected) Ur Amphetamines Screen (NotDetected) U Methamphetamines Scrn (NotDetected) U Benzodiazepines Scrn (NotDetected) Urine Cocaine Screen (NotDetected) U Marijuana (THC) Screen (NotDetected) 11/22/16 11/22/16 11/22/16 Range/Units 17:11 17:11 17:11 WBC 5.1 (3.8-10.6) k/uL RBC 3.79 L (3.80-5.40) m/uL Hgb 11.9 (11.4-16.0) gm/dL Hct 35.7 (34.0-46.0) % MCV 94.3 (80.0-100.0) fL MCH 31.5 (25.0-35.0) pg MCHC 33.4 (31.0-37.0) g/dL RDW 14.1 (11.5-15.5) % Plt Count 186 (150-450) k/uL Neutrophils % 54 % Lymphocytes % 32 % Monocytes % 5 % Eosinophils % 5 % Basophils % 1 % Neutrophils # 2.7 (1.3-7.7) k/uL Lymphocytes # 1.6 (1.0-4.8) k/uL Monocytes # 0.3 (0-1.0) k/uL Eosinophils # 0.2 (0-0.7) k/uL Basophils # 0.1 (0-0.2) k/uL PT 11.2 (9.0-12.0) sec INR 1.1 (<1.1) APTT 25.3 (22.0-30.0) sec Sodium 144 (137-145) mmol/L Potassium 4.5 (3.5-5.1) mmol/L Chloride 112 H (98-107) mmol/L Carbon Dioxide 25 (22-30) mmol/L Anion Gap 7 mmol/L BUN 18 H (7-17) mg/dL Creatinine 1.00 (0.52-1.04) mg/dL Est GFR (MDRD) Af Amer >60 (>60 ml/min/1.73 sqM) Est GFR (MDRD) Non-Af >60 (>60 ml/min/1.73 sqM) Glucose 89 (74-99) mg/dL POC Glucose (mg/dL) (75-99) mg/dL POC Glu Grief Counsellor ID Calcium 10.8 H (8.4-10.2) mg/dL Magnesium 2.1 (1.6-2.3) mg/dL Total Bilirubin 0.7 (0.2-1.3) mg/dL AST 34 (14-36) U/L ALT 41 (9-52) U/L Alkaline Phosphatase 150 H (38-126) U/L Ammonia (<30) umol/L Total Creatine Kinase (30-135) U/L CK-MB (CK-2) (0.0-2.4) ng/mL CK-MB (CK-2) Rel Index Troponin I (0.000-0.034) ng/mL Total Protein 6.4 (6.3-8.2) g/dL Albumin 3.2 L (3.5-5.0) g/dL Urine Color Urine Appearance (Clear) Urine pH (5.0-8.0) Ur Specific [place] (1.001-1.035) Urine Protein (Negative) Urine Glucose (UA) (Negative) Urine Ketones (Negative) Urine Blood (Negative) Urine Nitrite (Negative) Urine Bilirubin (Negative) Urine Urobilinogen (<2.0) mg/dL Ur Leukocyte Esterase (Negative) Urine Opiates Screen (NotDetected) Ur Oxycodone Screen (NotDetected) Urine Methadone Screen (NotDetected) Ur Propoxyphene Screen (NotDetected) Ur Barbiturates Screen (NotDetected) U Tricyclic Antidepress (NotDetected) Ur Phencyclidine Scrn (NotDetected) Ur Amphetamines Screen (NotDetected) U Methamphetamines Scrn (NotDetected) U Benzodiazepines Scrn (NotDetected) Urine Cocaine Screen (NotDetected) U Marijuana (THC) Screen (NotDetected) 11/22/16 11/22/16 Range/Units 17:48 18:18 WBC (3.8-10.6) k/uL RBC (3.80-5.40) m/uL Hgb (11.4-16.0) gm/dL Hct (34.0-46.0) % MCV (80.0-100.0) fL MCH (25.0-35.0) pg MCHC (31.0-37.0) g/dL RDW (11.5-15.5) % Plt Count (150-450) k/uL Neutrophils % % Lymphocytes % % Monocytes % % Eosinophils % % Basophils % % Neutrophils # (1.3-7.7) k/uL Lymphocytes # (1.0-4.8) k/uL Monocytes # (0-1.0) k/uL Eosinophils # (0-0.7) k/uL Basophils # (0-0.2) k/uL PT (9.0-12.0) sec INR (<1.1) APTT (22.0-30.0) sec Sodium (137-145) mmol/L Potassium (3.5-5.1) mmol/L Chloride (98-107) mmol/L Carbon Dioxide (22-30) mmol/L Anion Gap mmol/L BUN (7-17) mg/dL Creatinine (0.52-1.04) mg/dL Est GFR (MDRD) Af Amer (>60 ml/min/1.73 sqM) Est GFR (MDRD) Non-Af (>60 ml/min/1.73 sqM) Glucose (74-99) mg/dL POC Glucose (mg/dL) (75-99) mg/dL POC Glu Grief Counsellor ID Calcium (8.4-10.2) mg/dL Magnesium (1.6-2.3) mg/dL Total Bilirubin (0.2-1.3) mg/dL AST (14-36) U/L ALT (9-52) U/L Alkaline Phosphatase (38-126) U/L Ammonia 155 H (<30) umol/L Total Creatine Kinase (30-135) U/L CK-MB (CK-2) (0.0-2.4) ng/mL CK-MB (CK-2) Rel Index Troponin I (0.000-0.034) ng/mL Total Protein (6.3-8.2) g/dL Albumin (3.5-5.0) g/dL Urine Color Yellow Urine Appearance Clear (Clear) Urine pH 7.5 (5.0-8.0) Ur Specific [place] 1.010 (1.001-1.035) Urine Protein Negative (Negative) Urine Glucose (UA) Negative (Negative) Urine Ketones Negative (Negative) Urine Blood Negative (Negative) Urine Nitrite Negative (Negative) Urine Bilirubin Negative (Negative) Urine Urobilinogen 4.0 (<2.0) mg/dL Ur Leukocyte Esterase Negative (Negative) Urine Opiates Screen Not Detected (NotDetected) Ur Oxycodone Screen Detected H (NotDetected) Urine Methadone Screen Not Detected (NotDetected) Ur Propoxyphene Screen Not Detected (NotDetected) Ur Barbiturates Screen Not Detected (NotDetected) U Tricyclic Antidepress Detected H (NotDetected) Ur Phencyclidine Scrn Not Detected (NotDetected) Ur Amphetamines Screen Not Detected (NotDetected) U Methamphetamines Scrn Not Detected (NotDetected) U Benzodiazepines Scrn Detected H (NotDetected) Urine Cocaine Screen Not Detected (NotDetected) U Marijuana (THC) Screen Not Detected (NotDetected) - EKG Data -: EKG Interpreted by Tx EKG shows normal: sinus rhythm (Sinus tachycardia rate of 104. 188 QRS duration 90 QT/QTC of 366/[address]-T wave changes.) - Radiology Data Radiology results: report reviewed (I did review the imaging and report a early left perihilar infiltrate is not excluded per the report), image reviewed Critical Care Time Critical Care Time: Yes Critical Care Time: 31 minutes of critical care time. I did evaluate the case monitoring the EMS run as well as discussed with paramedics. History physical labs and x-rays reevaluation patient several occasions. Discussion with patient family members regarding the findings reveal charts. Admission orders documentation above and reevaluation of the patient again. Disposition Clinical Impression: Hepatic encephalopathy syndrome, Delirium due to general medical condition, Dehydration Disposition: ADMITTED IP TO THIS [facility] Condition: Serious Referrals: Erma Nieto MD [Primary Care Provider] - 1-2 days
[2016-11-22 18:39] LABS: Appearance,Urine Clear (Clear); Bilirubin,Urine Negative (Negative); Glucose,Urine (UA) Negative (Negative); Ketones,Urine Negative (Negative); Leukocyte Esterase,Urine Negative (Negative); Nitrite,Urine Negative (Negative); PH, Urine 7.5 (5.0-8.0); Protein,Urine Negative (Negative); UA Billing (MACRO vs. MICRO) CHEM
[2016-11-22] MEDS ORDERED: NALOXONE 0.4 MG/ML 1 ML VIAL IV PRN (21:35)
[2016-11-22] MEDS ORDERED: ALPRAZolam 0.25 MG TAB PO PRN (21:37)
[2016-11-22] MEDS ORDERED: ALBUTEROL NEBULIZED 2.5 MG/3 ML INHALATION PRN (21:37)
[2016-11-22] MEDS ORDERED: oxyCODONE-APAP 10-325MG 1 EACH TAB PO PRN (21:37)
[2016-11-22 23:09] VITALS: BMI 52.7
[2016-11-23] MEDS: OXYMORPHONE HCL 5 MG TABLET PO SCH ×6 (00:12→21:24)
[2016-11-23] MEDS: CYCLOBENZAPRINE 10 MG TAB PO SCH ×4 (00:12→21:24)
[2016-11-23] MEDS: SODIUM CHLORIDE 0.9% 1,000 ML IV SCH ×4 (00:13→21:26)
[2016-11-23] MEDS: LACTULOSE 20 GM/30 ML CUP PO SCH ×3 (00:13→21:24)
[2016-11-23 09:08] LABS: Basophils % (A) 1 %; CH 30.9; Eosinophils # (A) 0.2 k/uL (0-0.7); Eosinophils % (A) 6 %; HCT 38.7 % (34.0-46.0); HDW 2.61; HGB 12.6 gm/dL (11.4-16.0); Luc # (Auto) 0.12; Luc % (Auto) 3; Lymphocytes % (A) 49 %; MCH 31.4 pg (25.0-35.0); MCHC 32.5 g/dL (31.0-37.0); MCV 96.7 fL (80.0-100.0); Mean Platelet Volume 7.5; Monocytes # (A) 0.2 k/uL (0-1.0); Monocytes % (A) 4 %; Neutrophils # (A) 1.5 k/uL (1.3-7.7); Neutrophils % (A) 37 %; RDW 13.7 % (11.5-15.5); WBC (Perox) 4.11
[2016-11-23 09:09] LABS: ALT 35 U/L (9-52); AST 41 U/L (14-36); Alkaline Phosphatase 134 U/L (38-126); Anion Gap 9 mmol/L; Blood Urea Nitrogen 16 mg/dL (7-17); Calcium 10.7 mg/dL (8.4-10.2); Carbon Dioxide 19 mmol/L (22-30); Chloride 116 mmol/L (98-107); Glucose 78 mg/dL (74-99); Non-African American GFR(MDRD) >60 (>60 ml/min/1.73 sqM); Potassium 4.7 mmol/L (3.5-5.1); Sodium 144 mmol/L (137-145); Total Bilirubin 1.1 mg/dL (0.2-1.3); Total Protein 6.6 g/dL (6.3-8.2)
[2016-11-23] MEDS: ENOXAPARIN 40 MG/0.4 ML SYRINGE SQ SCH (09:45)
[2016-11-23] MEDS: buPROPion 100 MG TAB PO SCH ×2 (09:45→09:48)
[2016-11-23] MEDS: METOPROLOL TARTRATE 25 MG TAB PO SCH ×2 (09:45→21:24)
[2016-11-23] MEDS: NYSTATIN 100,000 UNIT/GM POWD 15 GM TOPICAL SCH ×2 (09:46→21:25)
[2016-11-23] MEDS: TRIAMCINOLONE ACET 0.1% OINTMENT 80 GM TUBE TOPICAL SCH ×2 (09:46→21:26)
[2016-11-23] MEDS: LOSARTAN 50 MG TAB PO SCH (09:46)
[2016-11-23] MEDS: RIFAXIMIN 550 MG TABLET PO SCH ×2 (09:48→21:25)
[2016-11-23] MEDS: POTASSIUM CHLORIDE ER 20 MEQ TAB.ER PO SCH ×2 (09:48→21:25)
[2016-11-23] MEDS: FUROSEMIDE 40 MG TAB PO SCH ×2 (09:49→16:35)
--- NOTE | 2016-11-23 10:45 | P.CONS ---
History of Present Illness - Reason for Consult Consult date: 11/23/16 Hepatic encephalopathy Requesting physician: Erma Nieto - History of Present Illness 46-year-old female past medical history of hepatic encephalopathy, bacteremia, UTIs, morbid obesity bed ridden; BMI 53, asthma, COPD/ pickwickian syndrome, chronic pain syndrome, MRSA, and GI bleeding presents with altered mental status and elevated ammonia level. Admission ammonia 154. Xifaxan and lactulose started. Repeat ammonia level pending this morning. Total bilirubin 0.7. AST 34. ALT 41. INR 1.1. Hemoglobin 11.9. MCV 94. Platelet 186. Full serologic workup for chronic liver disease in July 2016 was unremarkable. Hepatitis screen TRENT negative. No history of known liver disease. CT July 2016 did not show any liver abnormalities. Afebrile. Presently awake and alert able to provide a history. States she had a UTI a few weeks ago. CT brain no acute intracranial process. Review of Systems Constitutional: Denies fever, chills, sweats, weight gain, or loss. HEENT: Negative for migraines, blurred vision or loss, earaches, drainage, tinnitus, oral mucosal lesions, dysphagia, or odynophagia. CARDIAC: Negative for chest pain, arrhythmias, or palpitation. RESPIRATORY: Pickwickian syndrome. CBD. Asthma. Negative for shortness of breath, hemoptysis, cough, or sputum production. GI: See HPI for pertinent findings. : History of UTIs. Negative for hematuria, urgency, frequency, polyuria, or dysuria. GYNc: Denies possibility of . Negative vaginal discharge. MUSCULOSKELETAL: Morbid obesity bedridden. Chronic pain syndrome. NEUROLOGIC: Negative for stroke or TIA. ENDOCRINE: Negative for thyroid problems. SKIN: Negative for rash or itching. 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 complicated by a wrist drop and chronic contractures and muscle atrophy in the left upper extremity, complex regional pain syndrome, reflex sympathetic dystrophy, pancreatitis, morbid obesity, history of hemorrhagic cystitis, history of chronic pain, history of GI bleeds, cellulitis, septic in 2016 fromUTI History of Any Multi-Drug Resistant Organisms: MRSA Year Discovered:: 1/26/17 MDRO Source:: Urine Past Surgical History: Appendectomy, Section, Cholecystectomy Additional Past Surgical History / Comment(s): bowel resection, breast reduction , bilateral ACL repair, left brachial tumor biopsy and lymph node removed, bilateral knee surgery Past Anesthesia/Blood Transfusion Reactions: No Reported Reaction Past Psychological History: Depression Additional Psychological History / Comment(s): PT SAW DR MALIK DEVRIES IN [facility]([address]) [phone] AFIA TELLEZ [phone]. Smoking Status: Former smoker Past Alcohol Use History: None Reported Additional Past Alcohol Use History / Comment(s): Patient states that she is a lifelong nonsmoker. She denies any medical marijuana, marijuana or street drug or alcohol use. Patient lives at home with her and 2 sons that are 20 and 22 years of age. There is a cat in the home. Patient is currently residing at [facility] for rehab. Past Drug Use History: None Reported - Past Family History Daughter(s) Family Medical History: No Reported History Father Family Medical History: Diabetes Mellitus Additional Family Medical History / Comment(s): GOUT- ANY OTHER HS UNK Mother Additional Family Medical History / Comment(s): of LUNG DISEASE Medications and Allergies Home Medications Medication Instructions Recorded Confirmed Type oxyCODONE-APAP 10-325MG [Percocet 1 tab PO Q6HR PRN 10/05/16 11/22/16 History 10-325 mg] Allergies Allergy/AdvReac Type Severity Reaction Status Date / Time aspirin Allergy Unknown Verified 10/05/16 19:08 ciprofloxacin [From Cipro] Allergy Swelling Verified 10/05/16 19:08 ciprofloxacin HCl Allergy Swelling Verified 10/05/16 19:08 [From Cipro] levofloxacin [From Levaquin] Allergy Rash/Hives Verified 10/05/16 19:08 Penicillins Allergy Rash/Hives Verified 10/05/16 19:08 Physical Exam Vitals: Vital Signs Temp Pulse Pulse Resp BP BP Pulse Ox 11/23/16 07:00 95.6 F L 85 16 122/68 99 11/22/16 23:22 97.5 F L 81 18 110/54 98 11/22/16 22:38 97.0 F L 93 18 125/79 96 11/22/16 21:00 94 18 138/83 100 11/22/16 20:00 98 20 152/88 98 11/22/16 19:10 92 18 144/81 99 11/22/16 18:40 98 20 144/86 99 11/22/16 18:32 101 H 20 188/109 100 11/22/16 17:40 96 18 120/68 98 11/22/16 16:58 98.2 F 94 20 138/84 94 L Intake and Output 11/22/16 11/23/16 11/23/16 22:59 06:59 14:59 Intake Total 200 Balance 200 Intake: Oral 200 Other: Weight 122.5 kg General appearance: The patient is alert, oriented, in no acute distress. HET: Head is normocephalic and atraumatic. Pupils are equal and reactive. Oropharynx is clear without lesions. Neck: Supple without lymphadenopathy. Trachea midline. Heart: S1 S2. Regular rate and rhythm. Lungs: No crackles or wheezes are heard. Abdomen: Soft, nontender, nondistended with bowel sounds. No peritoneal signs. No palpable organomegaly or masses. Extremities: Normal skin color and turgor. No cyanosis, rash, ulceration, clubbing, or edema. Radial and pedal pulses are 2/4 bilaterally. Neurological: No focal deficits. Strength and sensation are grossly intact. Results CBC & Chem 7: 11/23/16 08:31 11/23/16 08:31 Labs: Abnormal Lab Results - Last 24 Hours (Table) 11/22/16 11/22/16 11/22/16 Range/Units 17:11 17:11 17:11 RBC 3.79 L (3.80-5.40) m/uL Chloride 112 H (98-107) mmol/L BUN 18 H (7-17) mg/dL Calcium 10.8 H (8.4-10.2) mg/dL Alkaline Phosphatase 150 H (38-126) U/L Ammonia 154 H (<30) umol/L Albumin 3.2 L (3.5-5.0) g/dL Ur Oxycodone Screen (NotDetected) U Tricyclic Antidepress (NotDetected) U Benzodiazepines Scrn (NotDetected) 11/22/16 11/22/16 Range/Units 17:48 18:18 RBC (3.80-5.40) m/uL Chloride (98-107) mmol/L BUN (7-17) mg/dL Calcium (8.4-10.2) mg/dL Alkaline Phosphatase (38-126) U/L Ammonia 155 H (<30) umol/L Albumin (3.5-5.0) g/dL Ur Oxycodone Screen Detected H (NotDetected) U Tricyclic Antidepress Detected H (NotDetected) U Benzodiazepines Scrn Detected H (NotDetected) Assessment and Plan (1) Hyperammonemia Narrative/Plan: Possible hepatic encephalopathy possible underlying fatty liver disease. Metabolic causes medications can also contribute to elevated ammonia levels such as chronic usage of narcotics and infection such as UTI. Status: Acute (2) Morbid obesity with BMI of 50.0-59.9, adult Status: Acute (3) Mental status change Status: Acute (4) Chronic pain syndrome Status: Chronic Plan: 1. Dr. Rodgers recommends no further workup at this time. Continue with Xifaxan and lactulose for now however on discharge would advise continuing lactulose only at [facility]. 2. Continue to monitor ammonia levels. 3. Will follow with you. Thank you for this kind referral and the opportunity to participate in the care of your patient. This consultation was discussed with Dr. Rodgers. The impression and plan of care have been directed as dictated.
[2016-11-23] MEDS ORDERED: oxyCODONE-APAP 10-325MG 1 EACH TAB PO PRN (11:54)
--- NOTE | 2016-11-23 14:59 | P.HPIM ---
History of Present Illness H&P Date: 11/22/16 Chief Complaint: hepatic encephalopathy his is a 46-year-old female one of my patient with a previous medical history significant for schwannoma status post resection and the left brachial plexus with resultant left wrist drop and complex regional pain syndrome (CRPS).was hospitalized here at [facility] in 07/06/2016 till 07/10/2016 due to cellulitis with significant skin rash involving her chest abdomen up her lower extremities along with significant buttock wound to the left side at that time she was treated with the Kenalog cream as well as Eucerin cream, and she was placed on IV anabiotic in the form Ancef so sequelae she was switched to Keflex 500 mg orally 3 times every day patient thought that she did have a reaction to the antibiotic she ended up stopping antibiotic at [facility] and she ended up feeling a bit better she continued to have significant dryness and erythema to the chest as well as abdomen low vitamin left lower extremity, patient was doing physical therapy over there and unfortunately on physical therapy and outpatient therapy could not hold the patient and ended up lowering the patient on to the floor, her got upset because he felt the patient is having mental status changes and the patient was referred to the emergency department at [facility] program she was found to have an elevated ammonia level at 84 without any other abnormalities she had a computed tomography scan of the abdomen and pelvis that did show only the stool impaction other than that she was doing fine the liver did not show any evidence of any liver cirrhosis however she did have splenomegaly, the patient was admitted to the hospital she was placed on lactulose 20 g orally twice every day and the GI consultation was obtained, chronic liver panel was obtained and was negative. Patient was hospitalized at [facility] last month with similar scenario and was found to have UTI with elevated ammonia levels,ended-up getting discharged and went home and subsequently was sent to [facility] for PT /OT and she was just discharged last week to attend her daughter delivery, patient apparently showed up at the ER of [facility] and she appeared confused and was placed on IVF and Lactulose along with Xifaxan 550 mg po bid and GI consult was obtained. Review of Systems Constitutional: Reports anorexia, Reports chronic headaches, Reports chronic pain, Reports lethargy, Reports malaise, Reports weakness, Reports weight gain Eyes: denies blurred vision, denies bulging eye, denies decreased vision, denies diplopia Ears: deny: decreased hearing Ears, nose, mouth and throat: Denies dysphagia, Denies neck lump, Denies swelling in throat, Denies vertigo Cardiovascular: Reports decreased exercise tolerance, Reports dyspnea on exertion, Denies chest pain, Denies lightheadedness, Denies shortness of breath , Denies syncope Respiratory: Reports sleep apnea, Reports snoring, Denies congestion, Denies cough, Denies cough with sputum, Denies home oxygen, Denies wheezing Gastrointestinal: Reports bloating, Reports constipation, Reports nausea, Denies abdominal pain, Denies belching, Denies change in bowel habits, Denies heartburn, Denies hematemesis, Denies hematochezia, Denies loss of appetite, Denies melena, Denies vomiting Genitourinary: Denies dysuria, Denies hematuria Musculoskeletal: Denies myalgias Musculoskeletal: absent: ankle pain, ankle stiffness, ankle swelling, elbow pain , elbow stiffness, elbow swelling, foot pain, foot stiffness, foot swelling, hand pain, hand stiffness, hand swelling, hip pain, hip stiffness, hip swelling , knee pain, knee stiffness, knee swelling, shoulder pain, shoulder stiffness, shoulder swelling, wrist pain, wrist stiffness, wrist swelling Integumentary: Denies pruritus, Denies rash Neurological: Denies numbness, Denies weakness Psychiatric: Denies anxiety, Denies depression Endocrine: Denies fatigue, Denies weight change Past Medical History Past Medical History: Asthma, COPD Additional Past Medical History / Comment(s): Pickwikian syndrome, kidney stones , 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 complicated by a wrist drop and chronic contractures and muscle atrophy in the left upper extremity, complex regional pain syndrome, reflex sympathetic dystrophy, pancreatitis, morbid obesity, history of hemorrhagic cystitis, history of chronic pain, history of GI bleeds, cellulitis, septic in 2016 fromUTI History of Any Multi-Drug Resistant Organisms: MRSA Date of last positivie culture/infection: 07/20/16 MDRO Source:: Urine Past Surgical History: Appendectomy, Section, Cholecystectomy Additional Past Surgical History / Comment(s): bowel resection, breast reduction , bilateral ACL repair, left brachial tumor biopsy and lymph node removed, bilateral knee surgery Past Anesthesia/Blood Transfusion Reactions: No Reported Reaction Past Psychological History: Depression Additional Psychological History / Comment(s): PT SAW DR MALIK DEVRIES IN [facility]([address]) [phone] AFIA TELLEZ . Smoking Status: Former smoker Past Alcohol Use History: None Reported Additional Past Alcohol Use History / Comment(s): Patient states that she is a lifelong nonsmoker. She denies any medical marijuana, marijuana or street drug or alcohol use. Patient lives at home with her and 2 sons that are 20 and 22 years of age. There is a cat in the home. Patient is currently residing at [facility] for rehab. Past Drug Use History: None Reported - Past Family History Daughter(s) Family Medical History: No Reported History Father Family Medical History: Diabetes Mellitus Additional Family Medical History / Comment(s): GOUT- ANY OTHER HS UNK Mother Additional Family Medical History / Comment(s): of LUNG DISEASE Medications and Allergies Home Medications Medication Instructions Recorded Confirmed Type oxyCODONE-APAP 10-325MG [Percocet 1 tab PO Q6HR PRN 10/05/16 11/22/16 History 10-325 mg] Allergies Allergy/AdvReac Type Severity Reaction Status Date / Time aspirin Allergy Unknown Verified 10/05/16 19:08 ciprofloxacin [From Cipro] Allergy Swelling Verified 10/05/16 19:08 ciprofloxacin HCl Allergy Swelling Verified 10/05/16 19:08 [From Cipro] levofloxacin [From Levaquin] Allergy Rash/Hives Verified 10/05/16 19:08 Penicillins Allergy Rash/Hives Verified 10/05/16 19:08 Physical Exam Vitals: Vital Signs Temp Pulse Pulse Resp BP BP Pulse Ox 11/22/16 23:22 97.5 F L 81 18 110/54 98 11/22/16 22:38 97.0 F L 93 18 125/79 96 11/22/16 21:00 94 18 138/83 100 11/22/16 20:00 98 20 152/88 98 11/22/16 19:10 92 18 144/81 99 11/22/16 18:40 98 20 144/86 99 11/22/16 18:32 101 H 20 188/109 100 11/22/16 17:40 96 18 120/68 98 11/22/16 16:58 98.2 F 94 20 138/84 94 L Intake and Output 11/22/16 11/22/16 11/23/16 14:59 22:59 06:59 Other: Weight 122.5 kg Patient Weight 11/23/16 06:59 Weight 122.5 kg - Constitutional General appearance: mild distress, morbidly obese - EENT Eyes: anicteric sclerae, EOMI, PERRLA, no ptosis, no scleral icterus, normal appearance ENT: hearing grossly normal, NA/AT, normal oropharynx, no thrush Ears: bilateral: normal - Neck Neck: no lymphadenopathy, normal ROM, no stridor, no thyromegaly Carotids: bilateral: upstroke normal Thyroid: bilateral: normal size - Respiratory Respiratory: bilateral: diminished, negative: dullness, rales, rhonchi, wheezing , prolonged expiration, prolonged inspiration - Cardiovascular Rhythm: regular Heart sounds: normal: S1, S2 Abnormal Heart Sounds: no systolic murmur, no diastolic murmur, no rub, no S3 Gallop, no S4 Gallop, no click - Gastrointestinal General gastrointestinal: normal bowel sounds, soft, no tenderness, no umbilical hernia, no ventral hernia - Integumentary Integumentary: normal, normal turgor - Neurologic Neurologic: CNII-XII intact - Musculoskeletal Musculoskeletal: generalized weakness, strength equal bilaterally, right sided weakness - Psychiatric Psychiatric: A&O x's 3, appropriate affect Results CBC & Chem 7: 11/23/16 08:31 11/23/16 08:31 Labs: Abnormal Lab Results - Last 24 Hours (Table) 11/22/16 11/22/16 11/22/16 Range/Units 17:11 17:11 17:11 RBC 3.79 L (3.80-5.40) m/uL Chloride 112 H (98-107) mmol/L BUN 18 H (7-17) mg/dL Calcium 10.8 H (8.4-10.2) mg/dL Alkaline Phosphatase 150 H (38-126) U/L Ammonia 154 H (<30) umol/L Albumin 3.2 L (3.5-5.0) g/dL Ur Oxycodone Screen (NotDetected) U Tricyclic Antidepress (NotDetected) U Benzodiazepines Scrn (NotDetected) 11/22/16 11/22/16 Range/Units 17:48 18:18 RBC (3.80-5.40) m/uL Chloride (98-107) mmol/L BUN (7-17) mg/dL Calcium (8.4-10.2) mg/dL Alkaline Phosphatase (38-126) U/L Ammonia 155 H (<30) umol/L Albumin (3.5-5.0) g/dL Ur Oxycodone Screen Detected H (NotDetected) U Tricyclic Antidepress Detected H (NotDetected) U Benzodiazepines Scrn Detected H (NotDetected) Thrombosis Risk Factor Assmnt - DVT/VTE Prophylaxis DVT/VTE Prophylaxis: Pharmacologic Prophylaxis ordered, Mechanical Prophylaxis ordered - Choose All That Apply Any of the Below Risk Factors Present?: Yes Each Factor Represents 1 point: Age 41-60 years Other Risk Factors: No Thrombosis Risk Factor Assessment Total Risk Factor Score: 1 Thrombosis Risk Factor Assessment Level: Low Risk Assessment and Plan Plan: Assessment and plan: 1. Altered level of consciousness secondary to elevated ammonia level. There is no evidence of any hepatic encephalopathy, there is no obvious reason for why the ammonia level was elevated beside the severe constipation, there is evidence of splenic and the CAT scan of the abdomen, we will obtain a chronic liver panel including hepatitis panel as well as iron studies along with a chronic liver panel. We will obtain GI consultation,added Xifaxan 550 mg orally twice every day, we'll decrease her Opana 40 mg orally every 8 hours, and decrease her Percocet to twice every day as needed 2. History of hydronephrosis. Was under the care of urology in the past. Computed tomography scan did not show any evidence of any hydronephrosis. 3. Supermorbid obesity with BMI 72 with WEI and OHS will continue with CPAP. 4. History of Schwanoma of the left brachial plexus with resultant chronic regional pain syndrome (CRPS).will continue with current pain management with Opana ER and percocet for breakthrough pain. 5. History of Fibromyalgia. Continue current pain management. Continue Flexeril 10 mg orally 3 times every day. 6. Chronic anemia will check iron studies. 7. Depression.will continue with bupropion 100 mg po bid and Remeron 15 mg orally bedtime. 8. 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 9.Chronic pain syndrome.will continue with current pain management. 10.DVT prophylaxis.will continue with heparin 5000 units subcutaneously every 8 hours. 11. GI prophylaxis.will continue with protonix 40 mg po daily. 12.Full code.
[2016-11-23] MEDS ORDERED: PANTOPRAZOLE 40 MG TABLET PO SCH (21:00)
[2016-11-23] MEDS ORDERED: MIRTAZAPINE 15 MG TAB PO SCH (21:00)
[2016-11-24] MEDS: OXYMORPHONE HCL 5 MG TABLET PO SCH ×2 (03:54→11:01)
[2016-11-24] MEDS: SODIUM CHLORIDE 0.9% 1,000 ML IV SCH ×2 (05:40→12:45)
[2016-11-24 07:38] VITALS: RESP 18
[2016-11-24] MEDS: FUROSEMIDE 40 MG TAB PO SCH ×2 (07:45→14:56)
[2016-11-24] MEDS: CYCLOBENZAPRINE 10 MG TAB PO SCH ×2 (07:45→14:56)
[2016-11-24] MEDS: RIFAXIMIN 550 MG TABLET PO SCH (07:45)
[2016-11-24] MEDS: LOSARTAN 50 MG TAB PO SCH (07:45)
[2016-11-24] MEDS: METOPROLOL TARTRATE 25 MG TAB PO SCH (07:45)
[2016-11-24] MEDS: buPROPion 100 MG TAB PO SCH (07:45)
[2016-11-24] MEDS: ENOXAPARIN 40 MG/0.4 ML SYRINGE SQ SCH (07:46)
[2016-11-24] MEDS: LACTULOSE 20 GM/30 ML CUP PO SCH (07:46)
[2016-11-24] MEDS: POTASSIUM CHLORIDE ER 20 MEQ TAB.ER PO SCH (07:46)
[2016-11-24] MEDS: NYSTATIN 100,000 UNIT/GM POWD 15 GM TOPICAL SCH (07:57)
[2016-11-24] MEDS: TRIAMCINOLONE ACET 0.1% OINTMENT 80 GM TUBE TOPICAL SCH (08:00)
--- NOTE | 2016-11-24 10:11 | P.PN ---
Subjective Principal diagnosis: Elevated ammonia level 46-year-old female with a history multiple medical problems admitted with elevated ammonia level possible hepatic encephalopathy possible metabolically induce. Alert today. Feels better. Anticipating discharge. Ammonia level pending. Passing bowel movement. Objective - Vital Signs Vital signs: Vital Signs Temp 99.1 F 11/24/16 07:00 Pulse 95 11/24/16 07:00 Resp 18 11/24/16 07:00 BP 121/76 11/24/16 07:00 Pulse Ox 99 11/24/16 07:00 Intake & Output 11/23/16 11/24/16 11/24/16 18:59 06:59 18:59 Intake Total 200 Balance 200 Intake: Oral 200 Other: Voiding Method Bedpan Bedpan # Voids 4 2 # Bowel Movements 3 1 - Exam General appearance: The patient is alert, oriented, in no acute distress. HET: Head is normocephalic and atraumatic. Pupils are equal and reactive. Oropharynx is clear without lesions. Neck: Supple without lymphadenopathy. Trachea midline. Heart: S1 S2. Regular rate and rhythm. Lungs: No crackles or wheezes are heard. Abdomen: Soft, nontender, nondistended with bowel sounds. No peritoneal signs. No palpable organomegaly or masses. Extremities: Normal skin color and turgor. No cyanosis, rash, ulceration, clubbing, or edema. Radial and pedal pulses are 2/4 bilaterally. Neurological: No focal deficits. Strength and sensation are grossly intact. - Labs CBC & Chem 7: 11/23/16 08:31 11/23/16 08:31 Assessment and Plan (1) Hyperammonemia Narrative/Plan: Possible hepatic encephalopathy suspected underlying fatty liver disease. Biochemically liver enzymes are within normal limits. Recent serologic workup for chronic liver disease a few months ago unremarkable. No evidence of overt liver disease on recent abdominal imaging. Metabolic causes medications can also contribute to elevated ammonia levels such as chronic usage of narcotics and infection such as UTI. Status: Acute (2) Morbid obesity with BMI of 50.0-59.9, adult Status: Acute (3) Mental status change Status: Acute (4) Chronic pain syndrome Status: Chronic Plan: 1. If ammonia level is improved agreeable for discharge. Transfer to ECF with lactulose and repeat ammonia level 3-5 days with monitoring. 2. No further workup at this time. Assessment and plan a care discussed with Dr. Rodgers.
[2016-11-24 10:15] LABS: ALT 30 U/L (9-52); AST 46 U/L (14-36); Alkaline Phosphatase 118 U/L (38-126); Anion Gap 7 mmol/L; Blood Urea Nitrogen 11 mg/dL (7-17); Calcium 10.1 mg/dL (8.4-10.2); Carbon Dioxide 20 mmol/L (22-30); Chloride 116 mmol/L (98-107); Glucose 113 mg/dL (74-99); Non-African American GFR(MDRD) >60 (>60 ml/min/1.73 sqM); Potassium 4.3 mmol/L (3.5-5.1); Sodium 143 mmol/L (137-145); Total Protein 6.6 g/dL (6.3-8.2)
[2016-11-24 14:59] VITALS: BP 137/84; PULSE 90; TEMP 98.7
--- NOTE | 2016-11-24 15:26 | P.DS ---
Providers Date of admission: 11/22/16 21:35 Expected date of discharge: 11/24/16 Attending physician: Erma Nieto Consults: 11/22/16 21:36 Consult Physician Routine Consulting Provider: Georgina Rodgers Consult Reason/Comments: Hepatic encephalopathy Do you want consulting provider notified?: Yes Primary care physician: Erma Nieto Hospital Course: This is a 46-year-old female one of my patient with a previous medical history significant for schwannoma status post resection and the left brachial plexus with resultant left wrist drop and complex regional pain syndrome (CRPS).was hospitalized here at [facility] in 07/06/2016 till 07/10/2016 due to cellulitis with significant skin rash involving her chest abdomen up her lower extremities along with significant buttock wound to the left side at that time she was treated with the Kenalog cream as well as Eucerin cream, and she was placed on IV anabiotic in the form Ancef so sequelae she was switched to Keflex 500 mg orally 3 times every day patient thought that she did have a reaction to the antibiotic she ended up stopping antibiotic at [facility] and she ended up feeling a bit better she continued to have significant dryness and erythema to the chest as well as abdomen low vitamin left lower extremity, patient was doing physical therapy over there and unfortunately on physical therapy and outpatient therapy could not hold the patient and ended up lowering the patient on to the floor, her got upset because he felt the patient is having mental status changes and the patient was referred to the emergency department at [facility] program she was found to have an elevated ammonia level at 84 without any other abnormalities she had a computed tomography scan of the abdomen and pelvis that did show only the stool impaction other than that she was doing fine the liver did not show any evidence of any liver cirrhosis however she did have splenomegaly, the patient was admitted to the hospital she was placed on lactulose 20 g orally twice every day and the GI consultation was obtained, chronic liver panel was obtained and was negative. Patient was hospitalized at [facility] last month with similar scenario and was found to have UTI with elevated ammonia levels,ended-up getting discharged and went home and subsequently was sent to [facility] on [place] for PT /OT and she was just discharged last week to attend her daughter delivery, patient apparently showed up at the ER of [facility] and she appeared confused and was placed on IVF and Lactulose along with Xifaxan 550 mg po bid and GI consult was obtained. 11/24: Ammonia level is down to 52. Patient is feeling well. Patient will be discharged home today in stable condition. Patient will be on new dosing of lactulose and continue Xifaxan at home and decrease frequency of Percocet. Discharge diagnoses: 1. Altered level of consciousness secondary to elevated ammonia level. There is no evidence of any hepatic encephalopathy, there is no obvious reason for why the ammonia level was elevated beside the severe constipation 2. History of hydronephrosis. 3. Supermorbid obesity with BMI 72 with WEI and OHS will continue with CPAP. 4. History of Schwanoma of the left brachial plexus with resultant chronic regional pain syndrome (CRPS). 5. History of Fibromyalgia. 6. Chronic anemia 7. Depression recurrent. 8. 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 9.Chronic pain syndrome. Discharge plan: Home Impression and plan of care have been directed as dictated by the signing physician. Elaina Latif nurse practitioner acting as scribe for signing physician. Patient Condition at Discharge: Good Plan - Discharge Summary New Discharge Prescriptions: New Rifaximin [Xifaxan] 550 mg PO BID #60 tab Continue ALPRAZolam [Xanax] 0.25 mg PO BID PRN #60 tablet PRN Reason: Anxiety Albuterol Nebulized [Ventolin Nebulized] 2.5 mg INHALATION RT-Q6H PRN #120 nebu PRN Reason: Shortness Of Breath Cyclobenzaprine [Flexeril] 10 mg PO TID #90 tab Furosemide [Lasix] 40 mg PO BID #60 tab Losartan Potassium 100 mg PO DAILY #30 tablet Metoprolol Tartrate [Lopressor] 25 mg PO BID #60 tab Mirtazapine [Remeron] 15 mg PO HS #30 tablet Nystatin 100,000 Unit/gm Powd [Mycostatin Powder] 1 applic TOPICAL BID #20 applic Pantoprazole [Protonix] 40 mg PO HS #30 tablet. Triamcinolone 0.1% Ointment [Kenalog] 1 applic TOPICAL BID #60 gm buPROPion [Wellbutrin] 100 mg PO BID #60 tab Potassium Chloride ER [K-Dur 20] 20 meq PO BID #60 tab.er.prt Oxymorphone HCl [Opana ER] 40 mg PO Q8H #90 tab.er.12h Changed Lactulose [Cephulac] 20 gm PO BID #900 ml oxyCODONE-APAP 10-325MG [Percocet 10-325 mg] 1 tab PO Q12H PRN #0 PRN Reason: Pain Discharge Medication List ALPRAZolam [Xanax] 0.25 mg PO BID PRN #60 tablet 07/28/16 [Rx] Albuterol Nebulized [Ventolin Nebulized] 2.5 mg INHALATION RT-Q6H PRN #120 nebu 07/28/16 [Rx] Cyclobenzaprine [Flexeril] 10 mg PO TID #90 tab 07/28/16 [Rx] Furosemide [Lasix] 40 mg PO BID #60 tab 07/28/16 [Rx] Losartan Potassium 100 mg PO DAILY #30 tablet 07/28/16 [Rx] Metoprolol Tartrate [Lopressor] 25 mg PO BID #60 tab 07/28/16 [Rx] Mirtazapine [Remeron] 15 mg PO HS #30 tablet 07/28/16 [Rx] Nystatin 100,000 Unit/gm Powd [Mycostatin Powder] 1 applic TOPICAL BID #20 applic 07/28/16 [Rx] Oxymorphone HCl [Opana ER] 40 mg PO Q8H #90 tab.er.12h 07/28/16 [Rx] Pantoprazole [Protonix] 40 mg PO HS #30 tablet. 07/28/16 [Rx] Potassium Chloride ER [K-Dur 20] 20 meq PO BID #60 tab.er.prt 07/28/16 [Rx] Triamcinolone 0.1% Ointment [Kenalog] 1 applic TOPICAL BID #60 gm 07/28/16 [Rx] buPROPion [Wellbutrin] 100 mg PO BID #60 tab 07/28/16 [Rx] Lactulose [Cephulac] 20 gm PO BID #900 ml 11/24/16 [Rx] Rifaximin [Xifaxan] 550 mg PO BID #60 tab 11/24/16 [Rx] oxyCODONE-APAP 10-325MG [Percocet 10-325 mg] 1 tab PO Q12H PRN #0 11/24/16 [Rx] Follow up Appointment(s)/Referral(s): Erma Nieto MD [Primary Care Provider] - 1 Week [facility], [NON-STAFF] - Patient Instructions/Handouts: Hepatic Encephalopathy (DC) Discharge Disposition: HOME WITH HOME HEALTH SERVICES
== END 2016-11-24 16:56 | disposition home health service (06) | DRG 642 ==
LOC: EC 16:56 → 4MS4W 21:35
PROVIDERS: ADMIT Internal Medicine; ATTEND Internal Medicine
DX: E72.20 Disorder of urea cycle metabolism, unspecified (principal); F05 Delirium due to known physiological condition; E66.2 Morbid (severe) obesity with alveolar hypoventilation; R16.1 Splenomegaly, not elsewhere classified; Z68.43 Body mass index [BMI] 50.0-59.9, adult; F33.9 Major depressive disorder, recurrent, unspecified; G90.50 Complex regional pain syndrome I, unspecified; G90.512 Complex regional pain syndrome I of left upper limb; E86.0 Dehydration; G89.4 Chronic pain syndrome; K59.00 Constipation, unspecified; M62.522 Muscle wasting and atrophy, not elsewhere classified, left upper arm; D64.9 Anemia, unspecified; J44.9 Chronic obstructive pulmonary disease, unspecified; M79.7 Fibromyalgia; M21.332 Wrist drop, left wrist; M62.422 Contracture of muscle, left upper arm; R53.1 Weakness; R41.82 Altered mental status, unspecified; Z74.01 Bed confinement status; Z88.6 Allergy status to analgesic agent; Z88.1 Allergy status to other antibiotic agents; Z88.0 Allergy status to penicillin; Z83.3 Family history of diabetes mellitus; Z87.442 Personal history of urinary calculi; Z87.891 Personal history of nicotine dependence; Z87.448 Personal history of other diseases of urinary system; Z87.440 Personal history of urinary (tract) infections; Z86.14 Personal history of Methicillin resistant Staphylococcus aureus infection; Z87.19 Personal history of other diseases of the digestive system; Z86.19 Personal history of other infectious and parasitic diseases; Z79.891 Long term (current) use of opiate analgesic; Z79.899 Other long term (current) drug therapy; Z83.6 Family history of other diseases of the respiratory system; Z90.49 Acquired absence of other specified parts of digestive tract
CPT/HCPCS: 36415; 70450; 71010; 80053; 80306; 81003; 82140; 82533; 82550; 82553; 83735; 84484; 85025; 85610; 85730; 93005; 96360; 96361; 99291

== ENCOUNTER 2020-06-04 07:48 | Inpatient (IN) | payer MEDICARE, OTHER ==
[2020-06-04] MEDS ORDERED: PANTOPRAZOLE 40 MG/10 ML VIAL IVP ONE (08:17)
[2020-06-04] MEDS ORDERED: SODIUM CHLORIDE 0.9% 1,000 ML IV ONE ×3 (08:17→16:15)
--- NOTE | 2020-06-04 08:21 | ED ---
GI Bleed HPI - General Chief complaint: GI Bleed Stated complaint: GI Bleed Time Seen by Provider: 06/04/20 07:50 Source: patient, EMS Mode of arrival: EMS Limitations: no limitations - History of Present Illness Initial comments: Patient is a 50-year-old female with past history of super morbid obesity, GI bleed, complex regional pain syndrome presents emergency Department with reported hematemesis and melenic stools. presents the emergency department and provides a history. States that he noted his began having dark black stools yesterday. She also had several episodes of vomiting for which she was unable hold on her medications. This morning the bleeding continued and the patient also began having episodes of hematemesis. She is not on any blood thinners. Does have a history of GI bleeding ulcer disease in the past. EGD from 2013 demonstrated a clean base duodenal bulbar ulcer. Patient is a very poor historian and cannot provide any history. She denies any abdominal pain. No other alleviating, precipitating or modifying factors - Related Data Home Medications Medication Instructions Recorded Confirmed Levothyroxine Sodium [Synthroid] 50 mcg PO DAILY 06/04/20 06/04/20 Morphine Sulfate ER [Ms Contin] 30 mg PO Q12HR 06/04/20 06/04/20 Morphine Sulfate ER [Ms Contin] 60 mg PO Q12HR 06/04/20 06/04/20 Previous Rx's Medication Instructions Recorded ALPRAZolam [Xanax] 0.25 mg PO BID PRN #60 tablet 07/28/16 Cyclobenzaprine [Flexeril] 10 mg PO TID #90 tab 07/28/16 Losartan Potassium 100 mg PO DAILY #30 tablet 07/28/16 Metoprolol Tartrate [Lopressor] 25 mg PO BID #60 tab 07/28/16 Mirtazapine [Remeron] 15 mg PO HS #30 tablet 07/28/16 buPROPion [Wellbutrin] 100 mg PO BID #60 tab 07/28/16 Allergies Allergy/AdvReac Type Severity Reaction Status Date / Time aspirin Allergy Unknown Verified 06/04/20 07:57 ciprofloxacin [From Cipro] Allergy Swelling Verified 06/04/20 07:57 ciprofloxacin HCl Allergy Swelling Verified 06/04/20 07:57 [From Cipro] levofloxacin [From Levaquin] Allergy Rash/Hives Verified 06/04/20 07:57 Penicillins Allergy Rash/Hives Verified 06/04/20 07:57 Review of Systems ROS Statement: Those systems with pertinent positive or pertinent negative responses have been documented in the HPI. ROS Other: All systems not noted in ROS Statement are negative. 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 complicated by a wrist drop and chronic contractures and muscle atrophy in the left upper extremity, complex regional pain syndrome, reflex sympathetic dystrophy, pancreatitis, morbid obesity, history of hemorrhagic cystitis, history of chronic pain, history of GI bleeds, cellulitis, septic in 2016 fromUTI History of Any Multi-Drug Resistant Organisms: MRSA Date of last positivie culture/infection: 07/20/16 MDRO Source:: Urine Past Surgical History: Appendectomy, Section, Cholecystectomy Additional Past Surgical History / Comment(s): bowel resection, breast reduction, bilateral ACL repair, left brachial tumor biopsy and lymph node removed, bilateral knee surgery Past Anesthesia/Blood Transfusion Reactions: No Reported Reaction Past Psychological History: Depression Past Alcohol Use History: None Reported Past Drug Use History: None Reported - Past Family History Daughter(s) Family Medical History: No Reported History Father Family Medical History: Diabetes Mellitus Additional Family Medical History / Comment(s): GOUT- ANY OTHER HS UNK Mother Additional Family Medical History / Comment(s): of LUNG DISEASE General Exam Limitations: altered mental status General appearance: alert, anxious Head exam: Present: atraumatic, normocephalic, normal inspection Eye exam: Present: normal appearance, PERRL, EOMI. Absent: scleral icterus, conjunctival injection, periorbital swelling ENT exam: Present: mucous membranes dry Respiratory exam: Present: normal lung sounds bilaterally. Absent: respiratory distress, wheezes, rales, rhonchi, stridor Cardiovascular Exam: Present: normal rhythm, tachycardia GI/Abdominal exam: Present: soft, normal bowel sounds, other (obese). Absent: distended, tenderness, guarding, rebound, rigid Rectal exam: Present: decreased rectal tone, heme (+) stool, black stool. Absent: mass Neurological exam: Present: altered Psychiatric exam: Present: agitated Skin exam: Present: warm Course Vital Signs 06/04/20 06/04/2020 07:49 09:53 10:56 Temperature 99.4 F 99.5 F Pulse Rate 132 H 131 H 135 H Respiratory 18 20 20 Rate Blood Pressure 132/81 129/99 137/98 O2 Sat by Pulse 95 99 Oximetry 06/04/20 06/04/20 06/04/20 11:12 12:32 13:43 Temperature 100.6 F H Pulse Rate 135 H 129 H 126 H Respiratory 24 18 22 Rate Blood Pressure 107/81 125/80 124/73 O2 Sat by Pulse 100 99 98 Oximetry 06/04/20 06/04/20 06/04/20 14:35 15:00 15:38 Temperature Pulse Rate 153 H 130 H 138 H Respiratory 22 22 22 Rate Blood Pressure 118/65 114/46 103/69 O2 Sat by Pulse 98 99 98 Oximetry 06/04/20 06/04/20 06/04/20 16:00 16:30 17:00 Temperature 99.9 F H Pulse Rate 138 H 128 H 130 H Respiratory 24 22 22 Rate Blood Pressure 101/53 109/87 106/89 O2 Sat by Pulse 98 98 97 Oximetry 06/04/20 06/04/20 06/04/20 17:30 18:00 18:35 Temperature Pulse Rate 118 H 129 H 130 H Respiratory 22 22 24 Rate Blood Pressure 122/68 126/77 121/75 O2 Sat by Pulse 98 98 98 Oximetry 06/04/20 06/04/20 06/04/20 20:20 21:52 22:50 Temperature 98.8 F 99.7 F H Pulse Rate 130 H 145 H 141 H Respiratory 18 18 20 Rate Blood Pressure 131/77 111/75 104/91 O2 Sat by Pulse 99 96 100 Oximetry 06/05/20 06/05/20 06/05/20 01:00 01:04 01:14 Temperature 99.8 F H 100 F H 99.7 F H Pulse Rate 135 H 137 H 135 H Respiratory 18 16 18 Rate Blood Pressure 132/63 121/65 116/72 O2 Sat by Pulse 99 100 100 Oximetry 06/05/20 06/05/20 06/05/20 01:44 02:44 03:44 Temperature 99.4 F 99.6 F 99.7 F H Pulse Rate 131 H 132 H 130 H Respiratory 18 18 16 Rate Blood Pressure 118/70 139/60 122/89 O2 Sat by Pulse 100 99 98 Oximetry 06/05/20 06/05/20 06/05/20 04:00 05:00 06:00 Temperature 99.4 F 99.4 F 99.3 F Pulse Rate 128 H 122 H 130 H Respiratory 18 16 16 Rate Blood Pressure 128/53 122/85 124/84 O2 Sat by Pulse 100 100 Oximetry - Reevaluation(s) Reevaluation #1: GI has been paged 06/04/20 10:30 Reevaluation #2: 06/04/20 10:[address] Owusu. Page placed for Dr. Vaughan. Reevaluation #3: 06/04/20 11:[address] Vaughan. Patient will be an ICU admit Medical Decision Making - Medical Decision Making Upon arrival patient was placed into room 4. A thorough history and physical exam was performed. Rectal exam was performed and demonstrates a thick amount of dark black stool. 2 peripheral IVs were established. Patient was given a liter bolus of normal saline. X-ray studies were conducted. Hemoglobin is 10.4. Potassium 3.2. Lactic acid 3.7. Troponin 0.1. Urinalysis demonstrates 52 white blood cells and rare bacteria. Fecal occult does come back positive. The patient does have 2 episodes of hematemesis in the emergency department. Blood pressure remained stable. I did perform a CT the patient's abdomen and pelvis which demonstrates no definite acute inflammatory process. I discussed the results with Dr. Owusu. Patient is nothing by mouth at this time. I also discussed the case with Dr. Fuentes who accepted the patient in the ICU. Also discussed the case with Dr. Reyes who will be the admitting physician. Dr. Damion DOVE does present to the emergency room to evaluate the patient. Patient remained in stable condition. CBCs will be trended every 6 hours. Patient received Protonix and 1 g of Rocephin. Potassium is replaced and lactulose is ordered further hyperammonemia - Lab Data Result diagrams: 06/06/20 07:11 06/06/20 07:42 Lab Results 06/04/20 06/04/20 06/04/20 Range/Units 08:22 08:30 08:34 WBC 9.9 (3.8-10.6) k/uL RBC 3.26 L (3.80-5.40) m/uL Hgb 10.4 L (11.4-16.0) gm/dL Hct 29.3 L (34.0-46.0) % MCV 89.8 (80.0-100.0) fL MCH 32.1 (25.0-35.0) pg MCHC 35.7 (31.0-37.0) g/dL RDW 14.4 (11.5-15.5) % Plt Count 272 (150-450) k/uL MPV 8.0 Neutrophils % 85 % Lymphocytes % 9 % Monocytes % 4 % Eosinophils % 1 % Basophils % 0 % Neutrophils # 8.4 H (1.3-7.7) k/uL Lymphocytes # 0.9 L (1.0-4.8) k/uL Monocytes # 0.4 (0-1.0) k/uL Eosinophils # 0.1 (0-0.7) k/uL Basophils # 0.0 (0-0.2) k/uL Poikilocytosis Slight PT (9.0-12.0) sec INR (<1.2) APTT (22.0-30.0) sec Sodium (137-145) mmol/L Potassium (3.5-5.1) mmol/L Chloride (98-107) mmol/L Carbon Dioxide (22-30) mmol/L Anion Gap mmol/L BUN (7-17) mg/dL Creatinine (0.52-1.04) mg/dL Est GFR (CKD-EPI)AfAm (>60 ml/min/1.73 sqM) Est GFR (CKD-EPI)NonAf (>60 ml/min/1.73 sqM) Glucose (74-99) mg/dL Lactic Ac Sepsis Rflx Plasma Lactic Acid Jesus (0.7-2.0) mmol/L Calcium (8.4-10.2) mg/dL Magnesium (1.6-2.3) mg/dL Total Bilirubin (0.2-1.3) mg/dL AST (14-36) U/L ALT (4-34) U/L Alkaline Phosphatase (38-126) U/L Ammonia (<30) umol/L Troponin I (0.000-0.034) ng/mL Total Protein (6.3-8.2) g/dL Albumin (3.5-5.0) g/dL Lipase (23-300) U/L Urine Color Urine Appearance (Clear) Urine pH (5.0-8.0) Ur Specific Young Harris (1.001-1.035) Urine Protein (Negative) Urine Glucose (UA) (Negative) Urine Ketones (Negative) Urine Blood (Negative) Urine Nitrite (Negative) Urine Bilirubin (Negative) Urine Urobilinogen (<2.0) mg/dL Ur Leukocyte Esterase (Negative) Urine RBC (0-5) /hpf Urine WBC (0-5) /hpf Ur Squamous Epith Cells (0-4) /hpf Urine Bacteria (None) /hpf Urine Mucus (None) /hpf Stool Occult Blood Positive H (Negative) Blood Type O Positive Blood Type Recheck O Pos Bld Type Recheck Status No Antibody Screen NEGATIVE Crossmatch See Detail Spec Expiration Date 06/07/2020 - 232906/04/20 06/04/20 06/04/20 Range/Units 08:34 08:34 08:34 WBC (3.8-10.6) k/uL RBC (3.80-5.40) m/uL Hgb (11.4-16.0) gm/dL Hct (34.0-46.0) % MCV (80.0-100.0) fL MCH (25.0-35.0) pg MCHC (31.0-37.0) g/dL RDW (11.5-15.5) % Plt Count (150-450) k/uL MPV Neutrophils % % Lymphocytes % % Monocytes % % Eosinophils % % Basophils % % Neutrophils # (1.3-7.7) k/uL Lymphocytes # (1.0-4.8) k/uL Monocytes # (0-1.0) k/uL Eosinophils # (0-0.7) k/uL Basophils # (0-0.2) k/uL Poikilocytosis PT 11.5 (9.0-12.0) sec INR 1.1 (<1.2) APTT 19.9 L (22.0-30.0) sec Sodium 143 (137-145) mmol/L Potassium 3.2 L (3.5-5.1) mmol/L Chloride 112 H (98-107) mmol/L Carbon Dioxide 23 (22-30) mmol/L Anion Gap 8 mmol/L BUN 32 H (7-17) mg/dL Creatinine 0.61 (0.52-1.04) mg/dL Est GFR (CKD-EPI)AfAm >90 (>60 ml/min/1.73 sqM) Est GFR (CKD-EPI)NonAf >90 (>60 ml/min/1.73 sqM) Glucose 173 H (74-99) mg/dL Lactic Ac Sepsis Rflx Plasma Lactic Acid Jesus 3.7 H* (0.7-2.0) mmol/L Calcium 10.3 H (8.4-10.2) mg/dL Magnesium 1.7 (1.6-2.3) mg/dL Total Bilirubin 1.2 (0.2-1.3) mg/dL AST 51 H (14-36) U/L ALT 25 (4-34) U/L Alkaline Phosphatase 123 (38-126) U/L Ammonia 40 H (<30) umol/L Troponin I (0.000-0.034) ng/mL Total Protein 6.6 (6.3-8.2) g/dL Albumin 3.3 L (3.5-5.0) g/dL Lipase 108 (23-300) U/L Urine Color Urine Appearance (Clear) Urine pH (5.0-8.0) Ur Specific Young Harris (1.001-1.035) Urine Protein (Negative) Urine Glucose (UA) (Negative) Urine Ketones (Negative) Urine Blood (Negative) Urine Nitrite (Negative) Urine Bilirubin (Negative) Urine Urobilinogen (<2.0) mg/dL Ur Leukocyte Esterase (Negative) Urine RBC (0-5) /hpf Urine WBC (0-5) /hpf Ur Squamous Epith Cells (0-4) /hpf Urine Bacteria (None) /hpf Urine Mucus (None) /hpf Stool Occult Blood (Negative) Blood Type Blood Type Recheck Bld Type Recheck Status Antibody Screen Crossmatch Spec Expiration Date 06/04/20 06/04/20 06/04/20 Range/Units 08:34 08:34 09:00 WBC (3.8-10.6) k/uL RBC (3.80-5.40) m/uL Hgb (11.4-16.0) gm/dL Hct (34.0-46.0) % MCV (80.0-100.0) fL MCH (25.0-35.0) pg MCHC (31.0-37.0) g/dL RDW (11.5-15.5) % Plt Count (150-450) k/uL MPV Neutrophils % % Lymphocytes % % Monocytes % % Eosinophils % % Basophils % % Neutrophils # (1.3-7.7) k/uL Lymphocytes # (1.0-4.8) k/uL Monocytes # (0-1.0) k/uL Eosinophils # (0-0.7) k/uL Basophils # (0-0.2) k/uL Poikilocytosis PT (9.0-12.0) sec INR (<1.2) APTT (22.0-30.0) sec Sodium (137-145) mmol/L Potassium (3.5-5.1) mmol/L Chloride (98-107) mmol/L Carbon Dioxide (22-30) mmol/L Anion Gap mmol/L BUN (7-17) mg/dL Creatinine (0.52-1.04) mg/dL Est GFR (CKD-EPI)AfAm (>60 ml/min/1.73 sqM) Est GFR (CKD-EPI)NonAf (>60 ml/min/1.73 sqM) Glucose (74-99) mg/dL Lactic Ac Sepsis Rflx Y Plasma Lactic Acid Jesus (0.7-2.0) mmol/L Calcium (8.4-10.2) mg/dL Magnesium (1.6-2.3) mg/dL Total Bilirubin (0.2-1.3) mg/dL AST (14-36) U/L ALT (4-34) U/L Alkaline Phosphatase (38-126) U/L Ammonia (<30) umol/L Troponin I 0.100 H* (0.000-0.034) ng/mL Total Protein (6.3-8.2) g/dL Albumin (3.5-5.0) g/dL Lipase (23-300) U/L Urine Color Yellow Urine Appearance Cloudy H (Clear) Urine pH 7.5 (5.0-8.0) Ur Specific Young Harris 1.016 (1.001-1.035) Urine Protein Trace H (Negative) Urine Glucose (UA) Negative (Negative) Urine Ketones 1+ H (Negative) Urine Blood Trace H (Negative) Urine Nitrite Negative (Negative) Urine Bilirubin Negative (Negative) Urine Urobilinogen <2.0 (<2.0) mg/dL Ur Leukocyte Esterase Large H (Negative) Urine RBC 3 (0-5) /hpf Urine WBC 52 H (0-5) /hpf Ur Squamous Epith Cells 2 (0-4) /hpf Urine Bacteria Rare H (None) /hpf Urine Mucus Rare H (None) /hpf Stool Occult Blood (Negative) Blood Type Blood Type Recheck Bld Type Recheck Status Antibody Screen Crossmatch Spec Expiration Date - EKG Data EKG Comments: EKG demonstrates a sinus tachycardia with a ventricular rate of 137. QRS 86. QTC of 570. No acute ST segment elevations or depressions Critical Care Time Critical Care Time: Yes Critical Care Time: 35 minutes Disposition Clinical Impression: Acute upper GI hemorrhage, Melena, Hematemesis Disposition: ADMITTED IP TO THIS [facility] Condition: Serious Is patient prescribed a controlled substance at d/c from ED?: No Decision to Admit Reason: Admit from EC Decision Date: 06/04/20 Decision Time: 10:36
[2020-06-04 08:49] LABS: Basophils % (A) 0 %; Eosinophils # (A) 0.1 k/uL (0-0.7); Eosinophils % (A) 1 %; HCT 29.3 % (34.0-46.0); HGB 10.4 gm/dL (11.4-16.0); Lymphocytes # (A) 0.9 k/uL (1.0-4.8); Lymphocytes % (A) 9 %; MCH 32.1 pg (25.0-35.0); MCHC 35.7 g/dL (31.0-37.0); MCV 89.8 fL (80.0-100.0); Monocytes # (A) 0.4 k/uL (0-1.0); Monocytes % (A) 4 %; Neutrophils # (A) 8.4 k/uL (1.3-7.7); Neutrophils % (A) 85 %; Platelet Count 272 k/uL (150-450); Poikilocytosis Slight; RBC 3.26 m/uL (3.80-5.40); RDW 14.4 % (11.5-15.5); WBC 9.9 k/uL (3.8-10.6)
[2020-06-04 08:59] LABS: Lactic Acid, Venous 3.7 mmol/L (0.7-2.0)
[2020-06-04 09:00] LABS: ALT 25 U/L (4-34); AST 51 U/L (14-36); African American GFR (CKD) >90 (>60 ml/min/1.73 sqM); Albumin 3.3 g/dL (3.5-5.0); Alkaline Phosphatase 123 U/L (38-126); Anion Gap 8 mmol/L; Blood Urea Nitrogen 32 mg/dL (7-17); Calcium 10.3 mg/dL (8.4-10.2); Carbon Dioxide 23 mmol/L (22-30); Chloride 112 mmol/L (98-107); Glucose 173 mg/dL (74-99); Lipase 108 U/L (23-300); Magnesium 1.7 mg/dL (1.6-2.3); Non-African American GFR(CKD) >90 (>60 ml/min/1.73 sqM); Potassium 3.2 mmol/L (3.5-5.1); Sodium 143 mmol/L (137-145); Total Bilirubin 1.2 mg/dL (0.2-1.3); Total Protein 6.6 g/dL (6.3-8.2)
[2020-06-04 09:08] LABS: INR 1.1 (<1.2); Prothrombin Time 11.5 sec (9.0-12.0)
[2020-06-04] MEDS ORDERED: POTASSIUM CHLORIDE 20 MEQ in WATER FOR INJECTION 1 100ML.BAG IVPB STA (09:09)
[2020-06-04 09:11] LABS: Partial Thromboplastin Time 19.9 sec (22.0-30.0)
[2020-06-04] MEDS ORDERED: TRIMETHOBENZAMIDE 100 MG/ML 2 ML VIAL IM STA (09:54)
[2020-06-04 10:00] LABS: Appearance,Urine Cloudy (Clear); Bacteria,Urine Rare /hpf; Bilirubin,Urine Negative (Negative); Blood,Urine Trace (Negative); Color,Urine Yellow; Glucose,Urine (UA) Negative (Negative); Ketones,Urine 1+ (Negative); Leukocyte Esterase,Urine Large (Negative); Mucus,Urine Rare /hpf; Nitrite,Urine Negative (Negative); PH, Urine 7.5 (5.0-8.0); Protein,Urine Trace (Negative); RBC,Urine 3 /hpf (0-5); Specific Gravity,Urine 1.016 (1.001-1.035); Squamous Epithelial Cell,Urine 2 /hpf (0-4); Urobilinogen,Urine <2.0 mg/dL (<2.0); WBC,Urine 52 /hpf (0-5)
[2020-06-04] MEDS ORDERED: cefTRIAXone IN SWFI 1,000 MG/10 ML SYRINGE IVP STA (10:11)
[2020-06-04] MEDS ORDERED: fentaNYL (PF) 50 MCG/ML 2 ML AMP IVP STA (10:26)
--- NOTE | 2020-06-04 10:27 | CT ---
EXAMINATION TYPE: CT abdomen pelvis w con DATE OF EXAM: 06/04/2020 COMPARISON: 07/26/2016 HISTORY: 50-year-old female with abdominal pain TECHNIQUE: Contiguous axial scanning of the abdomen and pelvis following administration of 100 ml Iso timothy 300 IV contrast. Delayed images through the kidneys and coronal/sagittal reconstructions perform ed. CT DLP: 2571 mGycm Automated exposure control for dose reduction was used. FINDINGS: Heart upper limits of normal in size without pericardial effusion. Strandy atelectasis in the lower l ungs without pleural effusion. No focal liver lesion. There is motion artifact limiting assessment. No definite biliary ductal dilat ation. Cholecystectomy clips. Motion artifact obscuring the main portal vein. Adrenal glands, spleen, and pancreas show no gross abnormality allowing for motion artifacts. Multiple nonobstructive right renal calculi measuring up to 1.0 cm. No hydronephrosis. No dilated small bowel, free fluid, or free air. No obvious mesenteric or retroperitoneal lymphadenop athy allowing for motion artifact. Oral contrast has progressed mostly into the transverse colon but also faintly into the sigmoid colon . Minimal scattered stool. No periparotid inflammatory change seen. Bladder nondistended, collapsed by Diaz catheter. Some intraluminal bladder air relating to instrume ntation. Uterus anteverted but retroflexed. Right ovary is visualized. Left ovary not clearly seen du e to adjacent bowel loops. No abnormal fluid collection the pelvis or pelvic lymphadenopathy. Bones: Noise from patient's large body habitus. Hypertrophic facet arthropathy lower lumbar spine. Gr aman 1 anterolisthesis [id number]. IMPRESSION: 1. Motion artifact limiting assessment. No definite acute inflammatory process identified in the abdo men or pelvis to explain the patient's symptoms. 2. Nonobstructive right renal calculi measuring up to 1 cm. 3. Diaz catheter in place. Small amount of intraluminal bladder air likely from instrumentation.
[2020-06-04] MEDS ORDERED: SODIUM CHLORIDE 0.9% 1,000 ML IV SCH ×2 (11:15→13:15)
[2020-06-04] MEDS ORDERED: NALOXONE 0.4 MG/ML 1 ML VIAL IV PRN (11:15)
[2020-06-04] MEDS: LACTULOSE 20 GM/30 ML CUP PO SCH ×4 (13:15→23:30)
[2020-06-04 14:40] LABS: HCT 26.5 % (34.0-46.0); HGB 9.1 gm/dL (11.4-16.0); MCH 31.6 pg (25.0-35.0); MCHC 34.1 g/dL (31.0-37.0); MCV 92.5 fL (80.0-100.0); Mean Platelet Volume 7.8; Platelet Count 235 k/uL (150-450); Poikilocytosis Slight; RBC 2.87 m/uL (3.80-5.40); RDW 14.7 % (11.5-15.5); WBC 10.6 k/uL (3.8-10.6)
[2020-06-04] MEDS: TRIMETHOBENZAMIDE 300 MG CAP PO SCH ×3 (14:58→23:43)
[2020-06-04] MEDS: SODIUM CHLORIDE 0.9% 1,000 ML IV SCH ×2 (16:15→23:31)
--- NOTE | 2020-06-04 16:43 | P.CNPUL ---
History of Present Illness Consult date: 06/04/20 Chief complaint: GI bleeding History of present illness: Morbidly obese female patient, 50 years of age with multiple medical problems and comorbidities, would probably with history of chronic liver disease, was in for melanotic tarry stools. The patient reports that she has been having dark bloody stool since yesterday. She is a poor historian. She does have some limited altered mentation, probably due to a component of hepatic encephalo vicente. Her last EGD was done 2013 that showed a clean base duodenal bulb ulcer. The patient does not drink alcohol pH is taking occasional nonsteroidal anti- inflammatory medication. No hematemesis. No abdominal pain. She is currently tachycardic pH is a total of 2 L of IV fluid. In the burst department, she had 4 bouts of melanotic stools and she is currently in sinus tachycardia. Hemoglobin was initially at 10.4 and dropped down to 9.1. Follow-up hemoglobin level is still pending for now. Correlation profile is within normal limits. Lactic acid level was at 3.7 and is currently down to 3.1. I increased her IV fluids and There are normal state rate of 75 mL an hour. I give her another bolus of normal saline. The computed tomography scan of the abdomen was done in emergency department showed motion artifact. No definite intra-abdominal abnormalities. There was a nonobstructive right renal calculus measuring up to 1 cm in size. Review of Systems The patient is slightly altered in terms of her mentation. There is history is not reliable. Positive findings are almost above history of present illness. She has issues with chronic pain and she takes morphine sulfate on outpatient basis. 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 complicated by a wrist drop and chronic contractures and muscle atrophy in the left upper extremity, complex regional pain syndrome, reflex sympathetic dystrophy, pancreatitis, morbid obesity, history of hemorrhagic cystitis, history of chronic pain, history of GI bleeds, cellulitis, septic in 2016 [facility] History of Any Multi-Drug Resistant Organisms: MRSA Date of last positivie culture/infection: 07/20/16 MDRO Source:: Urine Past Surgical History: Appendectomy, Section, Cholecystectomy Additional Past Surgical History / Comment(s): bowel resection, breast reduction, bilateral ACL repair, left brachial tumor biopsy and lymph node rem teo, bilateral knee surgery Past Anesthesia/Blood Transfusion Reactions: No Reported Reaction Past Psychological History: Depression Past Alcohol Use History: None Reported Past Drug Use History: None Reported - Past Family History Daughter(s) Family Medical History: No Reported History Father Family Medical History: Diabetes Mellitus Additional Family Medical History / Comment(s): GOUT- ANY OTHER HS UNK Mother Additional Family Medical History / Comment(s): of LUNG DISEASE Medications and Allergies Home Medications Medication Instructions Recorded Confirmed Type ALPRAZolam [Xanax] 0.25 mg PO BID PRN #60 tablet 07/28/16 06/04/20 Rx Cyclobenzaprine [Flexeril] 10 mg PO TID #90 tab 07/28/16 06/04/20 Rx Losartan Potassium 100 mg PO DAILY #30 tablet 07/28/16 06/04/20 Rx Metoprolol Tartrate [Lopressor] 25 mg PO BID #60 tab 07/28/16 06/04/20 Rx Mirtazapine [Remeron] 15 mg PO HS #30 tablet 07/28/16 06/04/20 Rx buPROPion [Wellbutrin] 100 mg PO BID #60 tab 07/28/16 06/04/20 Rx Levothyroxine Sodium [Synthroid] 50 mcg PO DAILY 06/04/20 06/04/20 History Morphine Sulfate ER [Ms Contin] 30 mg PO Q12HR 06/04/20 06/04/20 History Morphine Sulfate ER [Ms Contin] 60 mg PO Q12HR 06/04/20 06/04/20 History Allergies Allergy/AdvReac Type Severity Reaction Status Date / Time aspirin Allergy Unknown Verified 06/04/20 07:57 ciprofloxacin [From Cipro] Allergy Swelling Verified 06/04/20 07:57 ciprofloxacin HCl Allergy Swelling Verified 06/04/20 07:57 [From Cipro] levofloxacin [From Levaquin] Allergy Rash/Hives Verified 06/04/20 07:57 Penicillins Allergy Rash/Hives Verified 06/04/20 07:57 Physical Exam Vitals: Vital Signs Temp Pulse Resp BP Pulse Ox 06/04/20 16:00 99.9 F H 138 H 24 101/53 98 06/04/20 15:38 138 H 22 103/69 98 06/04/20 15:00 130 H 22 114/46 99 06/04/20 14:35 153 H 22 118/65 98 06/04/20 13:43 126 H 22 124/73 98 06/04/20 12:32 129 H 18 125/80 99 06/04/20 11:12 100.6 F H 135 H 24 107/81 100 06/04/20 10:56 99.5 F 135 H 20 137/98 99 06/04/20 09:53 131 H 20 129/99 95 06/04/20 07:49 99.4 F 132 H 18 132/81 Intake and Output 06/04/20 06/04/20 06/04/20 06:59 14:59 22:59 Output Total 900 Balance -900 Output: Urine 900 Uretheral (Diaz) 900 Other: Weight 145.15 kg Patient is morbidly obese, comfortable, not in acute respiratory distress. She has short stature.Head exam was generally normal. There was no scleral icterus or corneal arcus. Mucous membranes were moist.Neck was supple and without jugular venous distension, thyromegaly, or carotid bruits. Carotids were easily palpable bilaterally. There was no adenopathy. She has significant crowding of posterior oropharynx with Mallampati class IV.Lungs were clear to auscultation and percussion, and with normal diaphragmatic excursion. No wheezes or rales w ere noted. Cardiac exam revealed the PMI to be normally situated and sized. The rhythm was regular and no extrasystoles were noted during several minutes of auscultation. The first and second heart sounds were normal and physiologic splitting of the second heart sound was noted. There were no murmurs, rubs, clicks, or gallops. Abdomen organs cannot be accurately palpated because of morbid obesity. No direct tenderness. No rebound tenderness. No guarding.Examination of the extremities revealed easily palpable radial, femoral and pedal pulses. There was no cyanosis, clubbing or edema.Examination of the skin revealed no evidence of significant rashes, suspicious appearing nevi or other concerning lesions. Neurologically the patient is awake and alert. She is morbidly 4 extremities. She is slightly confused. She is oriented to place and self. Results - Laboratory Findings CBC and BMP: 06/04/20 14:08 06/04/20 08:34 PT/INR, D-dimer PT 11.5 sec (9.0-12.0) 06/04/20 08:34 INR 1.1 (<1.2) 06/04/20 08:34 Abnormal lab findings: Abnormal Labs 06/04/20 06/04/20 06/04/20 08:22 08:34 08:34 RBC 3.26 L Hgb 10.4 L Hct 29.3 L Neutrophils # 8.4 H Lymphocytes # 0.9 L APTT 19.9 L Potassium Chloride BUN Glucose Plasma Lactic Acid Jesus Calcium AST Ammonia Troponin I Albumin Urine Appearance Urine Protein Urine Ketones Urine Blood Ur Leukocyte Esterase Urine WBC Urine Bacteria Urine Mucus Stool Occult Blood Positive H 06/04/20 06/04/20 06/04/20 08:34 08:34 08:34 RBC Hgb Hct Neutrophils # Lymphocytes # APTT Potassium 3.2 L Chloride 112 H BUN 32 H Glucose 173 H Plasma Lactic Acid Jesus 3.7 H* Calcium 10.3 H AST 51 H Ammonia 40 H Troponin I 0.100 H* Albumin 3.3 L Urine Appearance Urine Protein Urine Ketones Urine Blood Ur Leukocyte Esterase Urine WBC Urine Bacteria Urine Mucus Stool Occult Blood 06/04/20 06/04/20 06/04/20 08:34 12:00 14:08 RBC 2.87 L Hgb 9.1 L Hct 26.5 L Neutrophils # Lymphocytes # APTT Potassium Chloride BUN Glucose Plasma Lactic Acid Jesus 3.9 H* Calcium AST Ammonia Troponin I Albumin Urine Appearance Cloudy H Urine Protein Trace H Urine Ketones 1+ H Urine Blood Trace H Ur Leukocyte Esterase Large H Urine WBC 52 H Urine Bacteria Rare H Urine Mucus Rare H Stool Occult Blood 06/04/20 15:55 RBC Hgb Hct Neutrophils # Lymphocytes # APTT Potassium Chloride BUN Glucose Plasma Lactic Acid Jesus 3.1 H* Calcium AST Ammonia Troponin I Albumin Urine Appearance Urine Protein Urine Ketones Urine Blood Ur Leukocyte Esterase Urine WBC Urine Bacteria Urine Mucus Stool Occult Blood Assessment and Plan Plan: 1 acute upper GI bleed with melanotic stool. The patient is normotensive. She is tachycardic patient drop in hemoglobin down to 9.1. She was given 2 L of IV fluids and currently she is receiving her third bolus and she will maintain a normal saline infusion at the rate of 1 50 mL an hour. Follow-up hemoglobin is in progress. This is likely upper GI bleed. Rule out underlying hepatic enceph alopathy 2 chronic liver disease with previous history of hyperammonemia. 3 morbid obesity with obvious pickwickian features and possible obstructive sleep apnea. 4 history of schwannoma of the brachial plexus status post resection, complicated by a wrist drop and contractures and muscle atrophy in the left upper extremity 5 complex regional pain syndrome 6 reflex empiric dystrophy and chronic pain 7 previous history of pancreatitis 8 previous history of hemorrhagic cystitis 9 history of chronic pain 10 previous history of GI bleed 11 previous history of UTI with secondary septic shock 12 mild lactic acidosis secondary to above 13 troponin leak secondary to above Plan Monitor hemoglobin IV fluids as third bolus will be given and continue with Advair 250 mL an hour IV Protonix Stat consultation with gastroenterology Monitor hemoglobin every 4-6 hours and prepared 2 units of packed RBC for any possible transfusion should the hemoglobin dropped further. We will admit the patient to the intensive care unit We'll obtain a blood gas to assess her acid base status Put the patient on empiric antibiotic coverage with IV Rocephin Coagulation profile is within normal limits. Ammonia level is slightly elevated. We'll continue to follow. Admitted to the intensive care unit
[2020-06-04] MEDS: PANTOPRAZOLE 40 MG/10 ML VIAL IVP SCH (17:59)
--- NOTE | 2020-06-04 20:06 | CT ---
EXAMINATION TYPE: CT brain wo con DATE OF EXAM: 06/04/2020 COMPARISON: 07/26/2016 HISTORY: Fall. CT DLP: 2160.4 mGycm Automated exposure control for dose reduction was used. Ventricles and sulci appear normal. There is no mass effect nor midline shift. There is no sign of in tracranial hemorrhage. The calvarium is intact. There is no evidence of cerebral edema. IMPRESSION: Negative unenhanced head CT scan. No change compared to old exam.
[2020-06-04 21:19] LABS: HCT 23.1 % (34.0-46.0); HGB 7.9 gm/dL (11.4-16.0); MCH 31.5 pg (25.0-35.0); MCHC 34.1 g/dL (31.0-37.0); MCV 92.4 fL (80.0-100.0); Mean Platelet Volume 7.8; Platelet Count 223 k/uL (150-450); Poikilocytosis Slight; WBC 9.9 k/uL (3.8-10.6)
--- NOTE | 2020-06-05 00:03 | P.HPIM ---
History of Present Illness This is a pleasant 50 years old female with past medical history of asthma and COPD, pickwickian syndrome, schwannoma of the brachioplexus, status post surgical resection, located by left wrist a drop and chronic contractures and mu scular atrophy of the left upper extremity. Complex regional pain syndrome. Reflex sympathetic dystrophy. Pancreatitis. Morbid obesity. History of hemorrhagic cystitis. History of GI bleed. Patient presents because of black tarry stool for more than 24 hours and today she was started vomiting of blood, air in the emergency room she had 3 large bowel movement and one small one, all of them that black stool. Also earlier she vomited one time and there was bloody discharge. She denies headache or chest pain however she has epigastric abdominal pain for 2 weeks as she states. She states she fell yesterday and passed out and hit her head but she denies chest pain or dyspnea. She denies drinking alcohol, she is taking pain medication but she could not number what medication it is. She is looks a little bit confused and poor historian, she can give some information but not very details Labs showing drop of hemoglobin from 10.4, 9.1 and 7.9. Risks of CBC is unremarkable. INR is normal. Elevated lactic acid came back to normal. Ammonia is elevated at 40, troponin is slightly elevated at 0.1. Potassium 3.2, wrist BMP is unremarkable, Troponin is elevated at 0.1 . UA is suspicious of infection. Occult blood in stool is positive Patient has tachycardia with heart rate up around 07/25/1942, mostly sinus tachycardia, blood pressure is stable, she has low-grade temperature of 100.6 Review of Systems CONSTITUTIONAL: No fever, no malaise, no fatigue. HEENT: No recent visual problems or hearing problems. Denied any sore throat. CARDIOVASCULAR: No orthopnea, PND, no palpitations, no syncope. PULMONARY: No shortness of breath, no cough, no hemoptysis. GASTROINTESTINAL: No diarrhea, no nausea, no vomiting, no abdominal pain. Normoactive bowel sounds. NEUROLOGICAL: No headaches, no weakness, no numbness. HEMATOLOGICAL: Denies any bleeding or petechiae. GENITOURINARY: Denies any burning micturition, frequency, or urgency. MUSCULOSKELETAL/RHEUMATOLOGICAL: Denies any joint pain, swelling, or any muscle pain. ENDOCRINE: Denies any polyuria or polydipsia. Past Medical History Past Medical History: Asthma, COPD Additional Past Medical History / Comment(s): Pickwikian syndrome, kidney stones, History of schwannoma of the brachial plexus status post surgical rese ction complicated by a wrist drop and chronic contractures and muscle atrophy in the left upper extremity, complex regional pain syndrome, reflex sympathetic dystrophy, pancreatitis, morbid obesity, history of hemorrhagic cystitis, history of chronic pain, history of GI bleeds, cellulitis, septic in 2016 [facility] History of Any Multi-Drug Resistant Organisms: MRSA Date of last positivie culture/infection: 07/20/16 MDRO Source:: Urine Past Surgical History: Appendectomy, Section, Cholecystectomy Additional Past Surgical History / Comment(s): bowel resection, breast reduction, bilateral ACL repair, left brachial tumor biopsy and lymph node removed, bilateral knee surgery Past Anesthesia/Blood Transfusion Reactions: No Reported Reaction Past Psychological History: Depression Past Alcohol Use History: None Reported Past Drug Use History: None Reported - Past Family History Daughter(s) Family Medical History: No Reported History Father Family Medical History: Diabetes Mellitus Additional Family Medical History / Comment(s): GOUT- ANY OTHER HS UNK Mother Additional Family Medical History / Comment(s): of LUNG DISEASE Medications and Allergies Home Medications Medication Instructions Recorded Confirmed Type ALPRAZolam [Xanax] 0.25 mg PO BID PRN #60 tablet 07/28/16 06/04/20 Rx Cyclobenzaprine [Flexeril] 10 mg PO TID #90 tab 07/28/16 06/04/20 Rx Losartan Potassium 100 mg PO DAILY #30 tablet 07/28/16 06/04/20 Rx Metoprolol Tartrate [Lopressor] 25 mg PO BID #60 tab 07/28/16 06/04/20 Rx Mirtazapine [Remeron] 15 mg PO HS #30 tablet 07/28/16 06/04/20 Rx buPROPion [Wellbutrin] 100 mg PO BID #60 tab 07/28/16 06/04/20 Rx Levothyroxine Sodium [Synthroid] 50 mcg PO DAILY 06/04/20 06/04/20 History Morphine Sulfate ER [Ms Contin] 30 mg PO Q12HR 06/04/20 06/04/20 History Morphine Sulfate ER [Ms Contin] 60 mg PO Q12HR 06/04/20 06/04/20 History Allergies Allergy/AdvReac Type Severity Reaction Status Date / Time aspirin Allergy Unknown Verified 06/04/20 07:57 ciprofloxacin [From Cipro] Allergy Swelling Verified 06/04/20 07:57 ciprofloxacin HCl Allergy Swelling Verified 06/04/20 07:57 [From Cipro] levofloxacin [From Levaquin] Allergy Rash/Hives Verified 06/04/20 07:57 Penicillins Allergy Rash/Hives Verified 06/04/20 07:57 Physical Exam Vitals: Vital Signs Temp Pulse Resp BP Pulse Ox 06/04/20 17:30 118 H 22 122/68 98 06/04/20 17:00 130 H 22 106/89 97 06/04/20 16:30 128 H 22 109/87 98 06/04/20 16:00 99.9 F H 138 H 24 101/53 98 06/04/20 15:38 138 H 22 103/69 98 06/04/20 15:00 130 H 22 114/46 99 06/04/20 14:35 153 H 22 118/65 98 06/04/20 13:43 126 H 22 124/73 98 06/04/20 12:32 129 H 18 125/80 99 06/04/20 11:12 100.6 F H 135 H 24 107/81 100 06/04/20 10:56 99.5 F 135 H 20 137/98 99 06/04/20 09:53 131 H 20 129/99 95 06/04/20 07:49 99.4 F 132 H 18 132/81 Intake and Output 06/04/20 06/04/20 06/04/20 06:59 14:59 22:59 Output Total 900 Balance -900 Output: Urine 900 Uretheral (Diaz) 900 Other: Weight 145.15 kg -GENERAL: The patient is alert and oriented x2-3, slightly confused, not in any acute distress. Obese HEENT: Pupils are round and equally reacting to light. EOMI. No scleral icterus. No conjunctival pallor. Normocephalic, atraumatic. No pharyngeal erythema. No thyromegaly. CARDIOVASCULAR: S1 and S2 present. No murmurs, rubs, or gallops. PULMONARY: Chest is clear to auscultation, no wheezing or crackles. ABDOMEN: Soft, nontender, nondistended, normoactive bowel sounds. No palpable organomegaly. MUSCULOSKELETAL: No joint swelling or deformity. EXTREMITIES: No cyanosis, clubbing, or pedal edema. NEUROLOGICAL: Gross neurological examination did not reveal any focal deficits. Left wrist drop (chronic) SKIN: No rashes. no petechiae. Results CBC & Chem 7: 06/04/20 21:05 06/04/20 08:34 Labs: Abnormal Lab Results - Last 24 Hours (Table) 06/04/20 06/04/20 06/04/20 Range/Units 08:22 08:34 08:34 RBC 3.26 L (3.80-5.40) m/uL Hgb 10.4 L (11.4-16.0) gm/dL Hct 29.3 L (34.0-46.0) % Neutrophils # 8.4 H (1.3-7.7) k/uL Lymphocytes # 0.9 L (1.0-4.8) k/uL APTT 19.9 L (22.0-30.0) sec Potassium (3.5-5.1) mmol/L Chloride (98-107) mmol/L BUN (7-17) mg/dL Glucose (74-99) mg/dL Plasma Lactic Acid Jesus (0.7-2.0) mmol/L Calcium (8.4-10.2) mg/dL AST (14-36) U/L Ammonia (<30) umol/L Troponin I (0.000-0.034) ng/mL Albumin (3.5-5.0) g/dL Urine Appearance (Clear) Urine Protein (Negative) Urine Ketones (Negative) Urine Blood (Negative) Ur Leukocyte Esterase (Negative) Urine WBC (0-5) /hpf Urine Bacteria (None) /hpf Urine Mucus (None) /hpf Stool Occult Blood Positive H (Negative) 06/04/20 06/04/20 06/04/20 Range/Units 08:34 08:34 08:34 RBC (3.80-5.40) m/uL Hgb (11.4-16.0) gm/dL Hct (34.0-46.0) % Neutrophils # (1.3-7.7) k/uL Lymphocytes # (1.0-4.8) k/uL APTT (22.0-30.0) sec Potassium 3.2 L (3.5-5.1) mmol/L Chloride 112 H (98-107) mmol/L BUN 32 H (7-17) mg/dL Glucose 173 H (74-99) mg/dL Plasma Lactic Acid Jesus 3.7 H* (0.7-2.0) mmol/L Calcium 10.3 H (8.4-10.2) mg/dL AST 51 H (14-36) U/L Ammonia 40 H (<30) umol/L Troponin I 0.100 H* (0.000-0.034) ng/mL Albumin 3.3 L (3.5-5.0) g/dL Urine Appearance (Clear) Urine Protein (Negative) Urine Ketones (Negative) Urine Blood (Negative) Ur Leukocyte Esterase (Negative) Urine WBC (0-5) /hpf Urine Bacteria (None) /hpf Urine Mucus (None) /hpf Stool Occult Blood (Negative) 06/04/20 06/04/20 06/04/20 Range/Units 08:34 12:00 14:08 RBC 2.87 L (3.80-5.40) m/uL Hgb 9.1 L (11.4-16.0) gm/dL Hct 26.5 L (34.0-46.0) % Neutrophils # (1.3-7.7) k/uL Lymphocytes # (1.0-4.8) k/uL APTT (22.0-30.0) sec Potassium (3.5-5.1) mmol/L Chloride (98-107) mmol/L BUN (7-17) mg/dL Glucose (74-99) mg/dL Plasma Lactic Acid Jesus 3.9 H* (0.7-2.0) mmol/L Calcium (8.4-10.2) mg/dL AST (14-36) U/L Ammonia (<30) umol/L Troponin I (0.000-0.034) ng/mL Albumin (3.5-5.0) g/dL Urine Appearance Cloudy H (Clear) Urine Protein Trace H (Negative) Urine Ketones 1+ H (Negative) Urine Blood Trace H (Negative) Ur Leukocyte Esterase Large H (Negative) Urine WBC 52 H (0-5) /hpf Urine Bacteria Rare H (None) /hpf Urine Mucus Rare H (None) /hpf Stool Occult Blood (Negative) 06/04/20 Range/Units 15:55 RBC (3.80-5.40) m/uL Hgb (11.4-16.0) gm/dL Hct (34.0-46.0) % Neutrophils # (1.3-7.7) k/uL Lymphocytes # (1.0-4.8) k/uL APTT (22.0-30.0) sec Potassium (3.5-5.1) mmol/L Chloride (98-107) mmol/L BUN (7-17) mg/dL Glucose (74-99) mg/dL Plasma Lactic Acid Jesus 3.1 H* (0.7-2.0) mmol/L Calcium (8.4-10.2) mg/dL AST (14-36) U/L Ammonia (<30) umol/L Troponin I (0.000-0.034) ng/mL Albumin (3.5-5.0) g/dL Urine Appearance (Clear) Urine Protein (Negative) Urine Ketones (Negative) Urine Blood (Negative) Ur Leukocyte Esterase (Negative) Urine WBC (0-5) /hpf Urine Bacteria (None) /hpf Urine Mucus (None) /hpf Stool Occult Blood (Negative) Microbiology - Last 24 Hours (Table) 06/04/20 08:34 Urine Culture - Preliminary Urine,Voided Assessment and Plan Assessment: Acute GI bleed, possible upper possible hepatic encephalopathy Possible acute urinary tract infection Altered mental status, concerning for hepatic encephalopathy elevated troponin Chronic asthma and COPD, pickwickian syndrome, History of schwannoma of the brachioplexus, status post surgical resection, located by left wrist a drop and chronic contractures and muscular atrophy of the left upper extremity. Complex regional pain syndrome. History of Reflex sympathetic dystrophy. History of Pancreatitis. Morbid obesity. History of hemorrhagic cystitis. History of GI bleed. Plan: This is a pleasant 50 years old female who presents with possible GI bleed. Possible altered mental status secondary to hepatic encephalopathy Monitor hemoglobin, continue with Protonix. GI consult. Lactulose and check ammonia level. Continue with ceftriaxone follow-up urine culture Labs and medication were reviewed.. Continue same treatment. Continue with symptomatic treatment. Resume home medication. Monitor lytes and vitals. DVT and GI prophylaxis. Further recommendations as per clinical course of the patient DVT prophylaxis: No heparin in view of possible GI bleed GI Prophylaxis: Ppi PT/OT: Pending Prognosis is guarded
[2020-06-05] MEDS: ACETAMINOPHEN TAB 325 MG TAB PO PRN ×2 (01:22→17:13)
[2020-06-05 06:20] LABS: Basophils % (A) 0 %; Eosinophils # (A) 0.2 k/uL (0-0.7); Eosinophils % (A) 1 %; HCT 26.8 % (34.0-46.0); HGB 8.7 gm/dL (11.4-16.0); Hypochromasia Slight; Lymphocytes # (A) 1.6 k/uL (1.0-4.8); Lymphocytes % (A) 15 %; MCH 30.7 pg (25.0-35.0); MCHC 32.5 g/dL (31.0-37.0); MCV 94.5 fL (80.0-100.0); Monocytes # (A) 0.7 k/uL (0-1.0); Monocytes % (A) 7 %; Neutrophils # (A) 7.7 k/uL (1.3-7.7); Neutrophils % (A) 75 %; Platelet Count 247 k/uL (150-450); Poikilocytosis Slight; RBC 2.84 m/uL (3.80-5.40); RDW 15.3 % (11.5-15.5); WBC 10.2 k/uL (3.8-10.6)
[2020-06-05 08:00] LABS: African American GFR (CKD) >90 (>60 ml/min/1.73 sqM); Anion Gap 3 mmol/L; Blood Urea Nitrogen 27 mg/dL (7-17); Calcium 9.1 mg/dL (8.4-10.2); Carbon Dioxide 20 mmol/L (22-30); Chloride 124 mmol/L (98-107); Glucose 129 mg/dL (74-99); Non-African American GFR(CKD) >90 (>60 ml/min/1.73 sqM); Potassium 3.4 mmol/L (3.5-5.1); Sodium 147 mmol/L (137-145)
[2020-06-05] MEDS ORDERED: PROPOFOL 10 MG/ML 20 ML VIAL IV ONE (08:04)
[2020-06-05] MEDS ORDERED: LIDOCAINE 1% INJ 10MG/ML (20 ML MDV) ONE (08:04)
[2020-06-05] MEDS ORDERED: SODIUM CHLORIDE 0.9% 500 ML 500 ML IV ONE (08:11)
[2020-06-05] MEDS ORDERED: EPINEPHrine 10 ML SYRINGE (0.1 MG/ML) INTRAOSSEO ONE ×2 (08:20)
[2020-06-05] MEDS ORDERED: LACTATED RINGERS 1,000 ML IV ONE (09:02)
--- NOTE | 2020-06-05 09:34 | P.CONS ---
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 The patient had been having symptoms for approximately 24 hours. She reported throwing up blood as well as coffee-ground emesis. She also reported passing dark-colored stools. Previously she underwent EGD in 2013 with a duodenal bulb ulcer. The patient was found to have hemoglobin of 10.4 on presentation. Stool testing for occult blood was positive. Review of Systems REVIEW OF SYSTEMS: CONSTITUTIONAL: Denies any fevers, chills, weight change or fatigue. CARDIOVASCULAR: Denies any chest pain, palpitations high or low blood pressures RESPIRATORY: Denies any shortness of breath, hemoptysis or cough. GENITOURINARY: No dysuria or hematuria. MUSCULOSKELETAL: No weakness reported. SKIN: Denies any new rashes or lesions, jaundice or pallor. PSYCHIATRIC: Denies any depression or anxiety. NEUROLOGY: Denies headache, denies any new focal deficits, left arm deficits secondary to prior surgery. EARS/NOSE/THROAT: No recent hearing change, congestion, nasal discharge or sore throat. EYES: No pain in eyes, discharge or change in vision. GASTROINTESTINAL: As per HPI. 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 complicated by a wrist drop and chronic contractures and muscle a trophy in the left upper extremity, complex regional pain syndrome, reflex sympathetic dystrophy, pancreatitis, morbid obesity, history of hemorrhagic cystitis, history of chronic pain, history of GI bleeds, cellulitis, septic in 2016 [facility] History of Any Multi-Drug Resistant Organisms: MRSA Year Discovered:: 07/20/16 MDRO Source:: Urine Past Surgical History: Appendectomy, Section, Cholecystectomy Additional Past Surgical History / Comment(s): bowel resection, breast reduction, bilateral ACL repair, left brachial tumor biopsy and lymph node removed, bilateral knee surgery Past Anesthesia/Blood Transfusion Reactions: No Reported Reaction Past Psychological History: Depression Past Alcohol Use History: None Reported Past Drug Use History: None Reported - Past Family History Daughter(s) Family Medical History: No Reported History Father Family Medical History: Diabetes Mellitus Additional Family Medical History / Comment(s): GOUT- ANY OTHER HS UNK Mother Additional Family Medical History / Comment(s): of LUNG DISEASE Medications and Allergies Home Medications Medication Instructions Recorded Confirmed Type ALPRAZolam [Xanax] 0.25 mg PO BID PRN #60 tablet 07/28/16 06/04/20 Rx Cyclobenzaprine [Flexeril] 10 mg PO TID #90 tab 07/28/16 06/04/20 Rx Losartan Potassium 100 mg PO DAILY #30 tablet 07/28/16 06/04/20 Rx Metoprolol Tartrate [Lopressor] 25 mg PO BID #60 tab 07/28/16 06/04/20 Rx Mirtazapine [Remeron] 15 mg PO HS #30 tablet 07/28/16 06/04/20 Rx buPROPion [Wellbutrin] 100 mg PO BID #60 tab 07/28/16 06/04/20 Rx Levothyroxine Sodium [Synthroid] 50 mcg PO DAILY 06/04/20 06/04/20 History Morphine Sulfate ER [Ms Contin] 30 mg PO Q12HR 06/04/20 06/04/20 History Morphine Sulfate ER [Ms Contin] 60 mg PO Q12HR 06/04/20 06/04/20 History Allergies Allergy/AdvReac Type Severity Reaction Status Date / Time aspirin Allergy Unknown Verified 06/04/20 07:57 ciprofloxacin [From Cipro] Allergy Swelling Verified 06/04/20 07:57 ciprofloxacin HCl Allergy Swelling Verified 06/04/20 07:57 [From Cipro] levofloxacin [From Levaquin] Allergy Rash/Hives Verified 06/04/20 07:57 Penicillins Allergy Rash/Hives Verified 06/04/20 07:57 Physical Exam Vitals: Vital Signs Temp Pulse Resp BP Pulse Ox 06/04/20 13:43 126 H 22 124/73 98 06/04/20 12:32 129 H 18 125/80 99 06/04/20 11:12 100.6 F H 135 H 24 107/81 100 06/04/20 10:56 99.5 F 135 H 20 137/98 99 06/04/20 09:53 131 H 20 129/99 95 06/04/20 07:49 99.4 F 132 H 18 132/81 Intake and Output 06/04/20 06/04/20 06/04/20 06:59 14:59 22:59 Output Total 900 Balance -900 Output: Urine 900 Uretheral (Diaz) 900 Other: Weight 145.15 kg On physical examination, patient appears comfortable in no apparent distress. HEAD: Normocephalic, atraumatic. EYES: No scleral icterus. No conjunctival injection. MOUTH: No lesions, tongue midline. NECK: Trachea midline, no gross abnormalities. CHEST: Decreased air entry in all lung bello. HEART: Regular rate and rhythm. ABDOMEN: Soft, obese and nontender. Bowel sounds are positive. No organomegaly. No guarding or rigidity. EXTREMITIES: No pedal edema. SKIN: No rashes, no jaundice. NEUROLOGIC: Alert and oriented to person. Results CBC & Chem 7: 06/05/20 05:47 06/05/20 05:47 Labs: Abnormal Lab Results - Last 24 Hours (Table) 06/04/20 06/04/20 06/04/20 Range/Units 08:22 08:34 08:34 RBC 3.26 L (3.80-5.40) m/uL Hgb 10.4 L (11.4-16.0) gm/dL Hct 29.3 L (34.0-46.0) % Neutrophils # 8.4 H (1.3-7.7) k/uL Lymphocytes # 0.9 L (1.0-4.8) k/uL APTT 19.9 L (22.0-30.0) sec Potassium (3.5-5.1) mmol/L Chloride (98-107) mmol/L BUN (7-17) mg/dL Glucose (74-99) mg/dL Plasma Lactic Acid Jesus (0.7-2.0) mmol/L Calcium (8.4-10.2) mg/dL AST (14-36) U/L Ammonia (<30) umol/L Troponin I (0.000-0.034) ng/mL Albumin (3.5-5.0) g/dL Urine Appearance (Clear) Urine Protein (Negative) Urine Ketones (Negative) Urine Blood (Negative) Ur Leukocyte Esterase (Negative) Urine WBC (0-5) /hpf Urine Bacteria (None) /hpf Urine Mucus (None) /hpf Stool Occult Blood Positive H (Negative) 06/04/20 06/04/20 06/04/20 Range/Units 08:34 08:34 08:34 RBC (3.80-5.40) m/uL Hgb (11.4-16.0) gm/dL Hct (34.0-46.0) % Neutrophils # (1.3-7.7) k/uL Lymphocytes # (1.0-4.8) k/uL APTT (22.0-30.0) sec Potassium 3.2 L (3.5-5.1) mmol/L Chloride 112 H (98-107) mmol/L BUN 32 H (7-17) mg/dL Glucose 173 H (74-99) mg/dL Plasma Lactic Acid Jesus 3.7 H* (0.7-2.0) mmol/L Calcium 10.3 H (8.4-10.2) mg/dL AST 51 H (14-36) U/L Ammonia 40 H (<30) umol/L Troponin I 0.100 H* (0.000-0.034) ng/mL Albumin 3.3 L (3.5-5.0) g/dL Urine Appearance (Clear) Urine Protein (Negative) Urine Ketones (Negative) Urine Blood (Negative) Ur Leukocyte Esterase (Negative) Urine WBC (0-5) /hpf Urine Bacteria (None) /hpf Urine Mucus (None) /hpf Stool Occult Blood (Negative) 06/04/20 06/04/20 06/04/20 Range/Units 08:34 12:00 14:08 RBC 2.87 L (3.80-5.40) m/uL Hgb 9.1 L (11.4-16.0) gm/dL Hct 26.5 L (34.0-46.0) % Neutrophils # (1.3-7.7) k/uL Lymphocytes # (1.0-4.8) k/uL APTT (22.0-30.0) sec Potassium (3.5-5.1) mmol/L Chloride (98-107) mmol/L BUN (7-17) mg/dL Glucose (74-99) mg/dL Plasma Lactic Acid Jesus 3.9 H* (0.7-2.0) mmol/L Calcium (8.4-10.2) mg/dL AST (14-36) U/L Ammonia (<30) umol/L Troponin I (0.000-0.034) ng/mL Albumin (3.5-5.0) g/dL Urine Appearance Cloudy H (Clear) Urine Protein Trace H (Negative) Urine Ketones 1+ H (Negative) Urine Blood Trace H (Negative) Ur Leukocyte Esterase Large H (Negative) Urine WBC 52 H (0-5) /hpf Urine Bacteria Rare H (None) /hpf Urine Mucus Rare H (None) /hpf Stool Occult Blood (Negative) CT scan - abdomen: report reviewed (Computed tomography scan of the abdomen with no definitive intra-abdominal processes noted.) Assessment and Plan (1) Anemia associated with acute blood loss Narrative/Plan: 50-year-old female multiple medical comorbidities including prior history of a duodenal ulcer in 2013 presented to the hospital with complaints of hematemesis and melena. Found to have an acute fall in her hemoglobin. Unclear etiology, may be related to peptic ulcer disease, AVM, Dieulafoy lesion or other etiology Current Visit: Yes Status: Acute Code(s): D62 - ACUTE POSTHEMORRHAGIC ANEMIA SNOMED Code(s): 386981483 (2) Acute upper GI hemorrhage Current Visit: Yes Status: Acute Code(s): K92.2 - GASTROINTESTINAL HEMORRHAGE, UNSPECIFIED SNOMED Code(s): 67840026 (3) Hematemesis/vomiting blood Current Visit: Yes Status: Acute Code(s): K92.0 - HEMATEMESIS SNOMED Code(s): 5220410 (4) Melena Current Visit: Yes Status: Acute Code(s): K92.1 - MELENA SNOMED Code(s): 1100758 Plan: Supportive care Nothing by mouth IV Protonix therapy Continue to monitor hemoglobin and hematocrit and transfuse as needed Plan for urgent EGD tomorrow for further evaluation Patient is scheduled to go to the ICU for further management Thank you for allowing us to suspect in the care of the patient we will continue to follow
--- NOTE | 2020-06-05 09:39 | P.PN ---
Subjective Progress Note Date: 06/05/20 This patient is being seen in follow-up on 06/05/2020 daily emergency department. The patient was supposed to go to the intensive care unit. She ultimately stayed in the emergency room the patient did not have any [in the ICU. She did have episodic bleeding throughout the night. The patient was having episodic melanotic stools. However she had an additional 3-4 episodes of bloody stool. Her hemoglobin dropped to 7.9. She received a unit of packed RBC and hemoglobin subsequently came up to 8.7. She is going to endoscopy today for an EGD. Her sodium level is at 147 with a chloride of 124. This is related to fluid resuscitation. The patient was receiving IV fluids at the rate of 150 mL an hour normal saline. She remains on IV Protonix. Objective - Vital Signs Vital signs: Vital Signs Temp 99.3 F 06/05/20 06:00 Pulse 130 H 06/05/20 06:00 Resp 16 06/05/20 06:00 BP 124/84 06/05/20 06:00 Pulse Ox 100 06/05/20 06:00 Intake & Output 06/04/20 06/05/20 06/05/20 18:59 06:59 18:59 Intake Total 310 500 Output Total 2000 200 Balance -2000 110 500 Weight 145.15 kg Intake: IV 500 Blood Product 310 Rc As-1 Unit 310 [id number] Output: Urine 2000 200 Uretheral (Diaz) 900 - Exam Patient is morbidly obese, comfortable, not in acute respiratory distress. She has short stature.Head exam was generally normal. There was no scleral icterus or corneal arcus. Mucous membranes were moist.Neck was supple and without jugular venous distension, thyromegaly, or carotid bruits. Carotids were easily palpable bilaterally. There was no adenopathy. She has significant crowding of posterior oropharynx with Mallampati class IV.Lungs were clear to auscultation and percussion, and with normal diaphragmatic excursion. No wheezes or rales were noted. Cardiac exam revealed the PMI to be normally situated and sized. The rhythm was regular and no extrasystoles were noted during several minutes of auscultation. The first and second heart sounds were normal and physiologic splitting of the second heart sound was noted. There were no murmurs, rubs, clicks, or gallops. Abdomen organs cannot be accurately palpated because of morbid obesity. No direct tenderness. No rebound tenderness. No guarding.Ex amination of the extremities revealed easily palpable radial, femoral and pedal pulses. There was no cyanosis, clubbing or edema.Examination of the skin revealed no evidence of significant rashes, suspicious appearing nevi or other concerning lesions. Neurologically the patient is awake and alert. She is morbidly 4 extremities. She is slightly confused. She is oriented to place and self. - Labs CBC & Chem 7: 06/05/20 05:47 06/05/20 05:47 Labs: Abnormal Lab Results - Last 24 Hours (Table) 06/04/20 06/04/20 06/04/20 Range/Units 08:30 08:34 08:34 RBC (3.80-5.40) m/uL Hgb (11.4-16.0) gm/dL Hct (34.0-46.0) % Sodium (137-145) mmol/L Potassium (3.5-5.1) mmol/L Chloride (98-107) mmol/L Carbon Dioxide (22-30) mmol/L BUN (7-17) mg/dL Glucose (74-99) mg/dL Plasma Lactic Acid Jesus (0.7-2.0) mmol/L Troponin I 0.100 H* (0.000-0.034) ng/mL Urine Appearance Cloudy H (Clear) Urine Protein Trace H (Negative) Urine Ketones 1+ H (Negative) Urine Blood Trace H (Negative) Ur Leukocyte Esterase Large H (Negative) Urine WBC 52 H (0-5) /hpf Urine Bacteria Rare H (None) /hpf Urine Mucus Rare H (None) /hpf Crossmatch See Detail 06/04/20 06/04/20 06/04/20 Range/Units 12:00 14:08 15:55 RBC 2.87 L (3.80-5.40) m/uL Hgb 9.1 L (11.4-16.0) gm/dL Hct 26.5 L (34.0-46.0) % Sodium (137-145) mmol/L Potassium (3.5-5.1) mmol/L Chloride (98-107) mmol/L Carbon Dioxide (22-30) mmol/L BUN (7-17) mg/dL Glucose (74-99) mg/dL Plasma Lactic Acid Jesus 3.9 H* 3.1 H* (0.7-2.0) mmol/L Troponin I (0.000-0.034) ng/mL Urine Appearance (Clear) Urine Protein (Negative) Urine Ketones (Negative) Urine Blood (Negative) Ur Leukocyte Esterase (Negative) Urine WBC (0-5) /hpf Urine Bacteria (None) /hpf Urine Mucus (None) /hpf Crossmatch 06/04/20 06/05/20 06/05/20 Range/Units 21:05 05:47 05:47 RBC 2.50 L 2.84 L (3.80-5.40) m/uL Hgb 7.9 L 8.7 L (11.4-16.0) gm/dL Hct 23.1 L 26.8 L (34.0-46.0) % Sodium 147 H (137-145) mmol/L Potassium 3.4 L (3.5-5.1) mmol/L Chloride 124 H (98-107) mmol/L Carbon Dioxide 20 L (22-30) mmol/L BUN 27 H (7-17) mg/dL Glucose 129 H (74-99) mg/dL Plasma Lactic Acid Jesus (0.7-2.0) mmol/L Troponin I (0.000-0.034) ng/mL Urine Appearance (Clear) Urine Protein (Negative) Urine Ketones (Negative) Urine Blood (Negative) Ur Leukocyte Esterase (Negative) Urine WBC (0-5) /hpf Urine Bacteria (None) /hpf Urine Mucus (None) /hpf Crossmatch Microbiology - Last 24 Hours (Table) 06/04/20 08:34 Urine Culture - Preliminary Urine,Voided Assessment and Plan Plan: 1 acute upper GI bleed with melanotic stool. The patient's hemoglobin dropped down to 8.9 and she was given a unit of packed RBC. She is hemodynamically stable. She did not require pressors throughout the night. She was having episodic bleeding. This morning she'll be going to EGD for a colonoscopy. IV fluids in the form of normal saline at the rate of 150 cc's an hour. The patient has developed blood loss anemia and hemoglobin dropped as low as 7.9. 2 chronic liver disease with previous history of hyperammonemia. 3 morbid obesity with obvious pickwickian features and possible obstructive sleep apnea. 4 history of schwannoma of the brachial plexus status post resection, complicated by a wrist drop and contractures and muscle atrophy in the left upper extremity 5 complex regional pain syndrome 6 reflex empiric dystrophy and chronic pain 7 previous history of pancreatitis 8 previous history of hemorrhagic cystitis 9 history of chronic pain 10 previous history of GI bleed 11 previous history of UTI with secondary septic shock 12 mild lactic acidosis secondary to above 13 troponin leak secondary to above 14 hyperchloremic hypernatremia Plan Monitor hemoglobin IV fluids with normal saline at the rate of 150 mL an hour IV Protonix EGD today Monitor hemoglobin every 6 hours and she has severe units of packed RBC We will admit the patient to the intensive care unit Put the patient on empiric antibiotic coverage with IV Rocephin Coagulation profile is within normal limits. Ammonia level is slightly elevated. We'll continue to monitor the mental status Admitted to the intensive care unit
[2020-06-05] MEDS ORDERED: METOCLOPRAMIDE 5 MG/ML 2 ML VIAL IVP ONE (09:45)
--- NOTE | 2020-06-05 09:47 | P.PCN ---
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 The patient had been having symptoms for approximately 24 hours. She reported throwing up blood as well as coffee-ground emesis. She also reported passing dark-colored stools. Previously she underwent EGD in 2013 with a duodenal bulb ulcer. The patient was found to have hemoglobin of 10.4 on presentation. Stool testing for occult blood was positive. PROCEDURE PERFORMED: Esophagogastroduodenoscopy with epinephrine injection, Gold probe ablation and Endo Clip placement. PREOPERATIVE DIAGNOSIS: Hematemesis, melena, anemia of acute blood loss. ESTIMATED BLOOD LOSS: Minimal. IV sedation per anesthesia. PROCEDURE: After informed consent was obtained, the patient was brought into the endoscopy unit. IV sedation was administered by Anesthesia under continuous monitoring. Initially the Olympus GIF-190 video endoscope was inserted into the mouth. Esophagus intubated without any difficulty. It was gradually advanced into the stomach and duodenum and carefully examined. The bulb and the second part of the duodenum was significant for an actively bleeding duodenal ulcer located in the duodenal sweep just distal to the bulb. 18 mL of epinephrine were injected in a circumferential manner around the ulcer. Gold probe was used for further intervention, however due to continued bleeding from the ulcer Endo Clip was utilized with 3 clips placed and hemostasis achieved. The scope was then withdrawn into the stomach, adequately insufflated with air, and upon careful examination, mucosa of the antrum, body, cardia and the fundus appeared normal, with old blood noted but no active bleeding . The scope was then withdrawn into the esophagus. The GE junction was located at 39 cm from the incisors. The esophagus appeared normal. There were no erosions or ulcerations seen and the patient tolerated the procedure well. IMPRESSION: 1. Actively bleeding ulcer in the duodenal sweep, treated with Endo Clip placements x 3, gold probe ablation and epinephrine injection. 2. Old blood noted in the stomach with no active bleeding. RECOMMENDATIONS: The findings of this examination were discussed with the patient and her . Patient should remain nothing by mouth. Surgical consult should be placed, if further bleeding patient may require surgical intervention due to the location of the ulcer. She will be sent to the ICU for further management. Continue Protonix therapy. Avoid anticoagulation therapy.
[2020-06-05] MEDS ORDERED: ONDANSETRON 4 MG/2 ML VIAL IVP ONE (10:06)
[2020-06-05] MEDS: SODIUM CHLORIDE 0.9% 1,000 ML IV SCH ×3 (10:37→20:11)
[2020-06-05] MEDS: TRIMETHOBENZAMIDE 300 MG CAP PO SCH ×4 (10:42→23:05)
[2020-06-05 10:52] LABS: Glucose,Whole Blood 157 mg/dL (75-99)
[2020-06-05 11:59] LABS: % Iron Saturation 54.66 (12.00-45.00); Iron 135 ug/dL (50-170); Total Iron Binding Capacity 247 ug/dL (228-460)
--- NOTE | 2020-06-05 12:12 | P.GSCN ---
History of Present Illness Consult date: 06/05/20 Reason for Consult: Duodenal ulcer History of present illness: This a 42-year-old female who underwent recent EGD for GI bleed. Patient's foun d have a large duodenal ulcer. I been requested for surgical consultation for surgical standby. Patient denies any significant pain. She currently is hungry. 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 complicated by a wrist drop and chronic contractures and muscle atrophy in the left upper extremity, complex regional pain syndrome, reflex sympathetic dystrophy, pancreatitis, morbid obesity, history of hemorrhagic cystitis, history of chronic pain, history of GI bleeds, cellulitis, septic in 2016 [facility] History of Any Multi-Drug Resistant Organisms: MRSA Year Discovered:: 07/20/16 MDRO Source:: Urine Past Surgical History: Appendectomy, Section, Cholecystectomy Additional Past Surgical History / Comment(s): bowel resection, breast reduction, bilateral ACL repair, left brachial tumor biopsy and lymph node removed, bilateral knee surgery Past Anesthesia/Blood Transfusion Reactions: No Reported Reaction Past Psychological History: Depression Past Alcohol Use History: None Reported Past Drug Use History: None Reported - Past Family History Daughter(s) Family Medical History: No Reported History Father Family Medical History: Diabetes Mellitus Additional Family Medical History / Comment(s): GOUT- ANY OTHER HS UNK Mother Additional Family Medical History / Comment(s): of LUNG DISEASE Medications and Allergies Home Medications Medication Instructions Recorded Confirmed Type ALPRAZolam [Xanax] 0.25 mg PO BID PRN #60 tablet 07/28/16 06/04/20 Rx Cyclobenzaprine [Flexeril] 10 mg PO TID #90 tab 07/28/16 06/04/20 Rx Losartan Potassium 100 mg PO DAILY #30 tablet 07/28/16 06/04/20 Rx Metoprolol Tartrate [Lopressor] 25 mg PO BID #60 tab 07/28/16 06/04/20 Rx Mirtazapine [Remeron] 15 mg PO HS #30 tablet 07/28/16 06/04/20 Rx buPROPion [Wellbutrin] 100 mg PO BID #60 tab 02/03/17 12/11/20 Rx Levothyroxine Sodium [Synthroid] 50 mcg PO DAILY 06/04/20 06/04/20 History Morphine Sulfate ER [Ms Contin] 30 mg PO Q12HR 06/04/20 06/04/20 History Morphine Sulfate ER [Ms Contin] 60 mg PO Q12HR 06/04/20 06/04/20 History Allergies Allergy/AdvReac Type Severity Reaction Status Date / Time aspirin Allergy Unknown Verified 06/04/20 07:57 ciprofloxacin [From Cipro] Allergy Swelling Verified 06/04/20 07:57 ciprofloxacin HCl Allergy Swelling Verified 06/04/20 07:57 [From Cipro] levofloxacin [From Levaquin] Allergy Rash/Hives Verified 06/04/20 07:57 Penicillins Allergy Rash/Hives Verified 06/04/20 07:57 Surgical - Exam Vital Signs Temp Pulse Resp BP 99.4 F 132 H 18 132/81 06/04/20 07:49 06/04/20 07:49 06/04/20 07:49 06/04/20 07:49 - General well developed, well nourished, no distress - Eyes PERRL - Abdomen Abdomen: soft, non tender Results - Labs 06/05/20 05:47 06/05/20 05:47 Abnormal Lab Results - Last 24 Hours (Table) 06/04/20 06/04/20 06/04/20 Range/Units 08:30 12:00 14:08 RBC 2.87 L (3.80-5.40) m/uL Hgb 9.1 L (11.4-16.0) gm/dL Hct 26.5 L (34.0-46.0) % Sodium (137-145) mmol/L Potassium (3.5-5.1) mmol/L Chloride (98-107) mmol/L Carbon Dioxide (22-30) mmol/L BUN (7-17) mg/dL Glucose (74-99) mg/dL POC Glucose (mg/dL) (75-99) mg/dL Plasma Lactic Acid Jesus 3.9 H* (0.7-2.0) mmol/L % Saturation (12.00-45.00) Crossmatch See Detail 06/04/20 06/04/20 06/05/20 Range/Units 15:55 21:05 05:47 RBC 2.50 L 2.84 L (3.80-5.40) m/uL Hgb 7.9 L 8.7 L (11.4-16.0) gm/dL Hct 23.1 L 26.8 L (34.0-46.0) % Sodium (137-145) mmol/L Potassium (3.5-5.1) mmol/L Chloride (98-107) mmol/L Carbon Dioxide (22-30) mmol/L BUN (7-17) mg/dL Glucose (74-99) mg/dL POC Glucose (mg/dL) (75-99) mg/dL Plasma Lactic Acid Jesus 3.1 H* (0.7-2.0) mmol/L % Saturation (12.00-45.00) Crossmatch 06/05/20 06/05/20 Range/Units 05:47 10:50 RBC (3.80-5.40) m/uL Hgb (11.4-16.0) gm/dL Hct (34.0-46.0) % Sodium 147 H (137-145) mmol/L Potassium 3.4 L (3.5-5.1) mmol/L Chloride 124 H (98-107) mmol/L Carbon Dioxide 20 L (22-30) mmol/L BUN 27 H (7-17) mg/dL Glucose 129 H (74-99) mg/dL POC Glucose (mg/dL) 157 H (75-99) mg/dL Plasma Lactic Acid Jesus (0.7-2.0) mmol/L % Saturation 54.66 H (12.00-45.00) Crossmatch Microbiology - Last 24 Hours (Table) 06/04/20 08:34 Urine Culture - Preliminary Urine,Voided Diabetes panel 06/05/20 Range/Units 05:47 Sodium 147 H (137-145) mmol/L Potassium 3.4 L (3.5-5.1) mmol/L Chloride 124 H (98-107) mmol/L Carbon Dioxide 20 L (22-30) mmol/L BUN 27 H (7-17) mg/dL Creatinine 0.56 (0.52-1.04) mg/dL Glucose 129 H (74-99) mg/dL Calcium 9.1 (8.4-10.2) mg/dL Calcium panel 06/05/20 Range/Units 05:47 Calcium 9.1 (8.4-10.2) mg/dL Pituitary panel 06/05/20 Range/Units 05:47 Sodium 147 H (137-145) mmol/L Potassium 3.4 L (3.5-5.1) mmol/L Chloride 124 H (98-107) mmol/L Carbon Dioxide 20 L (22-30) mmol/L BUN 27 H (7-17) mg/dL Creatinine 0.56 (0.52-1.04) mg/dL Glucose 129 H (74-99) mg/dL Calcium 9.1 (8.4-10.2) mg/dL Adrenal panel 06/05/20 Range/Units 05:47 Sodium 147 H (137-145) mmol/L Potassium 3.4 L (3.5-5.1) mmol/L Chloride 124 H (98-107) mmol/L Carbon Dioxide 20 L (22-30) mmol/L BUN 27 H (7-17) mg/dL Creatinine 0.56 (0.52-1.04) mg/dL Glucose 129 H (74-99) mg/dL Calcium 9.1 (8.4-10.2) mg/dL Assessment and Plan Assessment: GI bleed Duodenal ulcer Patient will be observed.
[2020-06-05] MEDS: POTASSIUM CHLORIDE 10 MEQ in WATER FOR INJECTION 1 100ML.BAG IVPB SCH ×7 (12:16→22:38)
[2020-06-05 12:34] LABS: Folate, Serum 19.9 ng/mL
[2020-06-05 13:07] LABS: Glucose,Whole Blood 137 mg/dL (75-99)
[2020-06-05] MEDS: ONDANSETRON 4 MG/2 ML VIAL IVP PRN ×2 (13:54→22:38)
[2020-06-05 13:57] LABS: HCT 23.8 % (34.0-46.0); HGB 8.2 gm/dL (11.4-16.0); MCH 31.8 pg (25.0-35.0); MCHC 34.5 g/dL (31.0-37.0); MCV 92.2 fL (80.0-100.0); Mean Platelet Volume 9.3; Platelet Count 216 k/uL (150-450); Poikilocytosis Slight; RBC 2.58 m/uL (3.80-5.40); RDW 15.4 % (11.5-15.5); WBC 13.8 k/uL (3.8-10.6)
[2020-06-05] MEDS: CYCLOBENZAPRINE 10 MG TAB PO SCH ×3 (14:15→21:16)
[2020-06-05] MEDS: LEVOTHYROXINE 50 MCG TAB PO SCH (14:15)
[2020-06-05] MEDS: buPROPion 100 MG TAB PO SCH ×2 (14:15→20:48)
[2020-06-05] MEDS: LACTULOSE 20 GM/30 ML CUP PO SCH ×3 (14:32→21:16)
--- NOTE | 2020-06-05 17:31 | ECHOF ---
Referral Reason:high des MEASUREMENTS -------- HEIGHT: 165.1 cm WEIGHT: 130.6 kg BP: IVSd: 1.1 cm (0.6 - 1.1) LVIDd: 4.5 cm (3.9 - 5.3) LVPWd: 1.4 cm (0.6 - 1.1) IVSs: 1.5 cm LVIDs: 3.8 cm LVPWs: 1.3 cm Ao Diam: 2.8 cm (2.0 - 3.7) MV EXCURSION: 19.523 mm (> 18.000) MV EF SLOPE: 85 mm/s (70 - 150) EPSS: 1.2 cm MV E Al: 1.20 m/s MV DecT: 178 ms MV A Al: 1.63 m/s MV E/A Ratio: 0.74 RAP: 5.00 mmHg RVSP: 22.48 mmHg FINDINGS -------- Resting tachycardia (HR>100bpm). This was a technically adequate study. Morbid Obesity LV size, wall thickness and systolic function are normal, with an EF greater than 55%. The left jenny tricular size is normal. The right ventricle is normal in size. The left atrial size is normal. The right atrial size is normal. The aortic valve was not well visualized. Mild mitral regurgitation is present. Mild tricuspid regurgitation present. Right ventricular systolic pressure is normal at < 35 mmHg. The pulmonic valve was not well visualized. The aortic root size is normal. Echo free space represents a pericardial fat pad. CONCLUSIONS -------- 1. Morbid Obesity 2. LV size, wall thickness and systolic function are normal, with an EF greater than 55%. 3. The left ventricular size is normal. 4. The right ventricle is normal in size. 5. The left atrial size is normal. 6. The right atrial size is normal. 7. The aortic valve was not well visualized. 8. Mild mitral regurgitation is present. 9. Mild tricuspid regurgitation present. 10. The pulmonic valve was not well visualized. 11. The aortic root size is normal. 12. Echo free space represents a pericardial fat pad. DRY MOLDER: Nya Haynes RDCS
[2020-06-05 18:58] LABS: HCT 23.8 % (34.0-46.0); Hypochromasia Slight; MCH 31.6 pg (25.0-35.0); MCHC 33.8 g/dL (31.0-37.0); MCV 93.5 fL (80.0-100.0); Mean Platelet Volume 8.1; Platelet Count 215 k/uL (150-450); Poikilocytosis Slight; RBC 2.54 m/uL (3.80-5.40); RDW 15.3 % (11.5-15.5); WBC 11.6 k/uL (3.8-10.6)
[2020-06-05] MEDS ORDERED: Potassium Replacement Protocol 1 EACH MISC MISCELLANE PRN (19:18)
[2020-06-05] MEDS: PANTOPRAZOLE 40 MG/10 ML VIAL IVP SCH (20:49)
[2020-06-05] MEDS ORDERED: MORPHINE SULFATE ER 60 MG TABLET PO SCH (22:45)
[2020-06-05] MEDS ORDERED: MORPHINE SULFATE ER 30 MG TABLET PO SCH (22:58)
[2020-06-05] MEDS: MIRTAZAPINE 15 MG TAB PO SCH (23:05)
[2020-06-05] MEDS: MORPHINE SULFATE ER 30 MG TABLET PO SCH (23:13)
[2020-06-06] MEDS: POTASSIUM CHLORIDE 10 MEQ in WATER FOR INJECTION 1 100ML.BAG IVPB SCH (00:04)
[2020-06-06] MEDS: SODIUM CHLORIDE 0.9% 1,000 ML IV SCH ×4 (00:05→21:20)
--- NOTE | 2020-06-06 01:36 | P.PN ---
Subjective This is a pleasant 50 years old female with past medical history of asthma and COPD, pickwickian syndrome, schwannoma of the brachioplexus, status post surgical resection, located by left wrist a drop and chronic contractures and muscular atrophy of the left upper extremity. Complex regional pain syndrome. Reflex sympathetic dystrophy. Pancreatitis. Morbid obesity. History of hemorrhagic cystitis. History of GI bleed. Patient presents because of black tarry stool for more than 24 hours and today she was started vomiting of blood, air in the emergency room she had 3 large bowel movement and one small one, all of them that black stool. Also earlier she vomited one time and there was bloody discharge. She denies headache or chest pain however she has epigastric abdominal pain for 2 weeks as she states. She states she fell yesterday and passed out and hit her head but she denies chest pain or dyspnea. She denies drinking alcohol, she is taking pain medication but she could not number what medication it is. She is looks a little bit confused and poor historian, she can give some information but not very details Labs showing drop of hemoglobin from 10.4, 9.1 and 7.9. Risks of CBC is unremarkable. INR is normal. Elevated lactic acid came back to normal. Ammonia is elevated at 40, troponin is slightly elevated at 0.1. Potassium 3.2, wrist BMP is unremarkable, Troponin is elevated at 0.1 . UA is suspicious of infection. Occult blood in stool is positive Patient has tachycardia with heart rate up around 07/25/1942, mostly sinus tachycardia, blood pressure is stable, she has low-grade temperature of 100.6 06/06/2020 Patient is more awake and stable today, her ammonia level back to normal however she did not have bowel movement while she is on lactulose She still complaining from epigastric pain in the view of her GI bleed she underwent EGD which found large duodenal ulcer which is actively bleeding and it was treated with an Endo Clip placement by GI team, surgery team diamond blender for standby but no need for any intervention for now. She is also on ceftriaxone empirically, I'll likely she has UTI most likely is asymptomatic bacteriuria as patient with no urinary symptoms and her urine culture is negative Patient can be moved out of the ICU today Review of Systems CONSTITUTIONAL: No fever, no malaise, no fatigue. HEENT: No recent visual problems or hearing problems. Denied any sore throat. CARDIOVASCULAR: No orthopnea, PND, no palpitations, no syncope. PULMONARY: No shortness of breath, no cough, no hemoptysis. GASTROINTESTINAL: No diarrhea, no nausea, no vomiting, no abdominal pain. Norm oactive bowel sounds. NEUROLOGICAL: No headaches, no weakness, no numbness. Active Medications Generic Name Dose Route Start Last Admin Trade Name Freq PRN Reason Stop Dose Admin Acetaminophen 650 mg 06/05/20 01:09 06/05/20 17:13 Acetaminophen Tab 325 Mg Tab PO 650 mg Q6HR PRN Administration Fever and/ or Pain Bupropion HCl 100 mg 06/05/20 09:00 06/05/20 20:48 Bupropion 100 Mg Tab PO 100 mg BID [facility] Administration Cyclobenzaprine HCl 10 mg 06/05/20 09:00 06/05/20 21:16 Cyclobenzaprine 10 Mg Tab PO 10 mg TID [facility] Administration Sodium Chloride 1,000 mls @ 150 mls/hr 06/04/20 16:15 06/06/20 00:05 Saline 0.9% IV 150 mls/hr .Q6H40M [facility] Administration Ceftriaxone Sodium 1 gm/ 50 mls @ 100 mls/hr 06/05/20 09:00 06/05/20 12:16 Sodium Chloride IVPB 100 mls/hr Q24HR [facility] Administration Lactulose 30 gm 06/04/20 12:30 06/05/20 21:16 Lactulose 20 Gm/30 Ml Cup PO Not Given TID [facility] Levothyroxine Sodium 50 mcg 06/05/20 06:30 06/05/20 14:15 Levothyroxine 50 Mcg Tab PO 50 mcg DAILY@0630 [facility] Administration Metoprolol Tartrate 12.5 mg 06/06/20 09:00 Metoprolol Tartrate 12.5 Mg Tab PO BID [facility] Mirtazapine 15 mg 06/05/20 22:45 06/05/20 23:05 Mirtazapine 15 Mg Tab PO 15 mg HS [facility] Administration Miscellaneous Information 1 each 06/05/20 19:18 Potassium Replacement Protocol 1 Each Misc MISCELLANE DAILY PRN Per Protocol Protocol Morphine Sulfate 60 mg 06/05/20 23:15 06/05/20 23:13 Morphine Sulfate Er 30 Mg Tablet PO 60 mg Q12HR [facility] Administration Naloxone HCl 0.2 mg 06/04/20 11:15 Naloxone 0.4 Mg/Ml 1 Ml Vial IV Q2M PRN Opioid Reversal Ondansetron HCl 4 mg 06/05/20 13:30 06/05/20 22:38 Ondansetron 4 Mg/2 Ml Vial IVP 4 mg Q6HR PRN Administration Nausea And Vomiting Pantoprazole Sodium 40 mg 06/05/20 21:00 06/05/20 20:49 Pantoprazole 40 Mg/10 Ml Vial IVP 40 mg BID [facility] Administration Trimethobenzamide HCl 300 mg 06/04/20 14:15 06/05/20 23:05 Trimethobenzamide 300 Mg Cap PO 300 mg QID [facility] Administration Objective - Vital Signs Vital signs: Vital Signs Temp 99.7 F H 06/05/20 12:00 Pulse 125 H 06/05/20 15:00 Resp 38 H 06/05/20 15:00 BP 136/69 06/05/20 15:00 Pulse Ox 99 06/05/20 15:00 Intake & Output 06/04/20 06/05/20 06/05/20 18:59 06:59 18:59 Intake Total 310 2150 Output Total 1999 200 1124 Balance -1999 110 1026 Weight 130.7 kg 130.7 kg Intake: IV 1400 Intake, IV Titration 750 Amount Potassium Chloride 10 meq 100 In Water For Injection 1 100ml.bag @ 100 mls/hr IVPB Q1HR [facility] Rx#: [id number] Sodium Chloride 0.9% 1, 600 000 ml @ 150 mls/hr IV . Q6H40M [facility] Rx#:[id number] cefTRIAXone 1 gm In 50 Sodium Chloride 0.9% 50 ml @ 100 mls/hr IVPB Q24HR [facility] Rx#:[id number] Blood Product 310 Rc As-1 Unit 310 [id number] Output: Urine 1999 200 1124 Uretheral (Diaz) 900 Other: Voiding Method Indwelling Catheter - Exam -GENERAL: The patient is alert and oriented x2-3, slightly confused, not in any acute distress. Obese HEENT: Pupils are round and equally reacting to light. EOMI. No scleral icterus. No conjunctival pallor. Normocephalic, atraumatic. No pharyngeal erythema. No thyromegaly. CARDIOVASCULAR: S1 and S2 present. No murmurs, rubs, or gallops. PULMONARY: Chest is clear to auscultation, no wheezing or crackles. -ABDOMEN: Soft, epigastric tenderness, nondistended, normoactive bowel sounds. No palpable organomegaly. MUSCULOSKELETAL: No joint swelling or deformity. EXTREMITIES: No cyanosis, clubbing, or pedal edema. -NEUROLOGICAL: Gross neurological examination did not reveal any focal deficits. Left wrist drop (chronic) SKIN: No rashes. no petechiae. - Labs CBC & Chem 7: 06/05/20 18:08 06/05/20 18:08 Labs: Abnormal Lab Results - Last 24 Hours (Table) 06/04/20 06/04/20 06/04/20 Range/Units 08:30 15:55 21:05 WBC (3.8-10.6) k/uL RBC 2.50 L (3.80-5.40) m/uL Hgb 7.9 L (11.4-16.0) gm/dL Hct 23.1 L (34.0-46.0) % Sodium (137-145) mmol/L Potassium (3.5-5.1) mmol/L Chloride (98-107) mmol/L Carbon Dioxide (22-30) mmol/L BUN (7-17) mg/dL Glucose (74-99) mg/dL POC Glucose (mg/dL) (75-99) mg/dL Plasma Lactic Acid Jesus 3.1 H* (0.7-2.0) mmol/L % Saturation (12.00-45.00) Procalcitonin (0.02-0.09) ng/mL Crossmatch See Detail 06/05/20 06/05/20 06/05/20 Range/Units 05:47 05:47 05:47 WBC (3.8-10.6) k/uL RBC 2.84 L (3.80-5.40) m/uL Hgb 8.7 L (11.4-16.0) gm/dL Hct 26.8 L (34.0-46.0) % Sodium 147 H (137-145) mmol/L Potassium 3.4 L (3.5-5.1) mmol/L Chloride 124 H (98-107) mmol/L Carbon Dioxide 20 L (22-30) mmol/L BUN 27 H (7-17) mg/dL Glucose 129 H (74-99) mg/dL POC Glucose (mg/dL) (75-99) mg/dL Plasma Lactic Acid Jesus (0.7-2.0) mmol/L % Saturation 54.66 H (12.00-45.00) Procalcitonin 0.15 H (0.02-0.09) ng/mL Crossmatch 06/05/20 06/05/20 06/05/20 Range/Units 10:50 12:15 13:06 WBC 13.8 H (3.8-10.6) k/uL RBC 2.58 L (3.80-5.40) m/uL Hgb 8.2 L (11.4-16.0) gm/dL Hct 23.8 L (34.0-46.0) % Sodium (137-145) mmol/L Potassium (3.5-5.1) mmol/L Chloride (98-107) mmol/L Carbon Dioxide (22-30) mmol/L BUN (7-17) mg/dL Glucose (74-99) mg/dL POC Glucose (mg/dL) 157 H 137 H (75-99) mg/dL Plasma Lactic Acid Jesus (0.7-2.0) mmol/L % Saturation (12.00-45.00) Procalcitonin (0.02-0.09) ng/mL Crossmatch Microbiology - Last 24 Hours (Table) 06/04/20 08:34 Urine Culture - Final Urine,Voided Assessment and Plan Assessment: Acute upper GI bleed, secondary to large duodenal ulcer status post Endo Clip placement possible hepatic encephalopathy, resolved Asymptomatic bacteriuria tract infection Altered mental status, improved elevated troponin, nonspecific. Most likely it's demand ischemia. Echocardiogram showing normal ejection fraction at 55 with normal LV function and no hypokinesia Chronic asthma and COPD, pickwickian syndrome, History of schwannoma of the brachioplexus, status post surgical resection, located by left wrist a drop and chronic contractures and muscular atrophy of the left upper extremity. Complex regional pain syndrome. History of Reflex sympathetic dystrophy. History of Pancreatitis. Morbid obesity. History of hemorrhagic cystitis. History of GI bleed. Plan: This is a pleasant 50 years old female who presents with possible GI bleed. Secondary to large duodenal ulcer. Continue with Protonix. Continue with GI, surgery and pulmonary/critical care team were following the case Labs and medication were reviewed.. Continue same treatment. Continue with symptomatic treatment. Resume home medication. Monitor lytes and vitals. DVT and GI prophylaxis. Further recommendations as per clinical course of the patient linical course of the patient DVT prophylaxis: No heparin in view of possible GI bleed GI Prophylaxis: Ppi
[2020-06-06] MEDS: METOPROLOL TARTRATE 12.5 MG TAB PO SCH ×2 (04:22→21:17)
[2020-06-06] MEDS: LEVOTHYROXINE 50 MCG TAB PO SCH (06:31)
[2020-06-06 07:46] LABS: HCT 21.9 % (34.0-46.0); HGB 7.4 gm/dL (11.4-16.0); Hypochromasia Slight; MCH 32.3 pg (25.0-35.0); MCV 94.9 fL (80.0-100.0); Mean Platelet Volume 8.3; Platelet Count 210 k/uL (150-450); Poikilocytosis Slight; RBC 2.31 m/uL (3.80-5.40); RDW 15.7 % (11.5-15.5); WBC 10.1 k/uL (3.8-10.6)
[2020-06-06 07:58] LABS: African American GFR (CKD) >90 (>60 ml/min/1.73 sqM); Anion Gap 2 mmol/L; Blood Urea Nitrogen 20 mg/dL (7-17); Calcium 8.4 mg/dL (8.4-10.2); Carbon Dioxide 18 mmol/L (22-30); Chloride 125 mmol/L (98-107); Glucose 111 mg/dL (74-99); Magnesium 1.7 mg/dL (1.6-2.3); Non-African American GFR(CKD) >90 (>60 ml/min/1.73 sqM); Potassium 3.7 mmol/L (3.5-5.1); Sodium 145 mmol/L (137-145)
[2020-06-06] MEDS: PANTOPRAZOLE 40 MG/10 ML VIAL IVP SCH ×3 (08:03→21:18)
[2020-06-06] MEDS: CYCLOBENZAPRINE 10 MG TAB PO SCH ×3 (08:14→21:17)
[2020-06-06] MEDS: MORPHINE SULFATE ER 30 MG TABLET PO SCH ×2 (08:14→21:18)
[2020-06-06] MEDS: buPROPion 100 MG TAB PO SCH ×2 (08:14→21:17)
[2020-06-06] MEDS: TRIMETHOBENZAMIDE 300 MG CAP PO SCH ×4 (08:14→21:17)
[2020-06-06] MEDS: LACTULOSE 20 GM/30 ML CUP PO SCH (08:14)
--- NOTE | 2020-06-06 09:57 | P.PN ---
Subjective Progress Note Date: 06/06/20 On 06/05/2020, the patient is doing well. No further episodes of GI bleed. The patient underwent EGD yesterday and the patient was found to have a bleeding ulcer in the duodenal sweep. The patient was treated with an Endo Clip 3 and adequate hemostasis was achieved. Following this, the patient was brought back to the intensive care unit. I discharged out of the intensive care unit as the patient was doing well. Today she is still nothing by mouth. Hemoglobin from today is at 7.4. The rest of the blood work shows a serum bicarb of 18 with a sodium level of 145. She is awake and alert. She is slightly confused. She remains on IV Protonix. IV fluids are running 150 mL an hour of normal saline. Patient is still on IV Rocephin. Ammonia level is at Objective - Vital Signs Vital signs: Vital Signs Temp 98.5 F 06/06/20 08:00 Pulse 111 H 06/06/20 08:00 Resp 18 06/06/20 08:00 BP 107/61 06/06/20 08:00 Pulse Ox 97 06/06/20 08:00 Intake & Output 06/05/20 06/06/20 06/06/20 18:59 06:59 18:59 Intake Total 3350 500 Output Total 2203 850 Balance 1147 -350 Weight 130.7 kg Intake: IV 1400 500 Potassium Chloride 10 meq 200 In Water For Injection 1 100ml.bag @ 100 mls/hr IVPB Q1HR [facility] Rx#: [id number] Sodium Chloride 0.9% 1, 300 000 ml @ 150 mls/hr IV . Q6H40M [facility] Rx#:[id number] Intake, IV Titration 1950 Amount Potassium Chloride 10 meq 400 In Water For Injection 1 100ml.bag @ 100 mls/hr IVPB Q1HR [facility] Rx#: [id number] Sodium Chloride 0.9% 1, 1500 000 ml @ 150 mls/hr IV . Q6H40M [facility] Rx#:[id number] cefTRIAXone 1 gm In 50 Sodium Chloride 0.9% 50 ml @ 100 mls/hr IVPB Q24HR [facility] Rx#:[id number] Output: Urine 2203 850 Other: Voiding Method Indwelling Catheter Indwelling Catheter Indwelling Catheter # Bowel Movements 1 1 - Exam Patient is morbidly obese, comfortable, not in acute respiratory distress. She has short stature.Head exam was generally normal. There was no scleral icterus or corneal arcus. Mucous membranes were moist.Neck was supple and without jugular venous distension, thyromegaly, or carotid bruits. Carotids were easily palpable bilaterally. There was no adenopathy. She has significant crowding of posterior oropharynx with Mallampati class IV.Lungs were clear to auscultation and percussion, and with normal diaphragmatic excursion. No wheezes or rales were noted. Cardiac exam revealed the PMI to be normally situated and sized. The rhythm was regular and no extrasystoles were noted during several minutes of auscultation. The first and second heart sounds were normal and physiologic splitting of the second heart sound was noted. There were no murmurs, rubs, clicks, or gallops. Abdomen organs cannot be accurately palpated because of morbid obesity. No direct tenderness. No rebound tenderness. No guarding.Exa mination of the extremities revealed easily palpable radial, femoral and pedal pulses. There was no cyanosis, clubbing or edema.Examination of the skin revealed no evidence of significant rashes, suspicious appearing nevi or other concerning lesions. Neurologically the patient is awake and alert. She is morbidly 4 extremities. She is slightly confused. She is oriented to place and self. - Labs CBC & Chem 7: 06/06/20 07:11 06/06/20 07:42 Labs: Abnormal Lab Results - Last 24 Hours (Table) 06/05/20 06/05/20 06/05/20 Range/Units 05:47 05:47 10:50 WBC (3.8-10.6) k/uL RBC (3.80-5.40) m/uL Hgb (11.4-16.0) gm/dL Hct (34.0-46.0) % RDW (11.5-15.5) % Potassium (3.5-5.1) mmol/L Chloride (98-107) mmol/L Carbon Dioxide (22-30) mmol/L BUN (7-17) mg/dL Glucose (74-99) mg/dL POC Glucose (mg/dL) 157 H (75-99) mg/dL % Saturation 54.66 H (12.00-45.00) Ammonia (<30) umol/L Procalcitonin 0.15 H (0.02-0.09) ng/mL 06/05/20 06/05/20 06/05/20 Range/Units 12:15 13:06 18:08 WBC 13.8 H 11.6 H (3.8-10.6) k/uL RBC 2.58 L 2.54 L (3.80-5.40) m/uL Hgb 8.2 L 8.0 L (11.4-16.0) gm/dL Hct 23.8 L 23.8 L (34.0-46.0) % RDW (11.5-15.5) % Potassium (3.5-5.1) mmol/L Chloride (98-107) mmol/L Carbon Dioxide (22-30) mmol/L BUN (7-17) mg/dL Glucose (74-99) mg/dL POC Glucose (mg/dL) 137 H (75-99) mg/dL % Saturation (12.00-45.00) Ammonia (<30) umol/L Procalcitonin (0.02-0.09) ng/mL 06/05/20 06/06/20 06/06/20 Range/Units 18:08 07:11 07:11 WBC (3.8-10.6) k/uL RBC 2.31 L (3.80-5.40) m/uL Hgb 7.4 L (11.4-16.0) gm/dL Hct 21.9 L (34.0-46.0) % RDW 15.7 H (11.5-15.5) % Potassium 3.4 L (3.5-5.1) mmol/L Chloride (98-107) mmol/L Carbon Dioxide (22-30) mmol/L BUN (7-17) mg/dL Glucose (74-99) mg/dL POC Glucose (mg/dL) (75-99) mg/dL % Saturation (12.00-45.00) Ammonia 57 H (<30) umol/L Procalcitonin (0.02-0.09) ng/mL 06/06/20 Range/Units 07:42 WBC (3.8-10.6) k/uL RBC (3.80-5.40) m/uL Hgb (11.4-16.0) gm/dL Hct (34.0-46.0) % RDW (11.5-15.5) % Potassium (3.5-5.1) mmol/L Chloride 125 H (98-107) mmol/L Carbon Dioxide 18 L (22-30) mmol/L BUN 20 H (7-17) mg/dL Glucose 111 H (74-99) mg/dL POC Glucose (mg/dL) (75-99) mg/dL % Saturation (12.00-45.00) Ammonia (<30) umol/L Procalcitonin (0.02-0.09) ng/mL Microbiology - Last 24 Hours (Table) 06/04/20 08:34 Urine Culture - Final Urine,Voided Assessment and Plan Plan: 1 acute upper GI bleed with melanotic stool. The patient was found to have an actively bleeding duodenal ulcer and Endo Clip was applied 3 in the reading was controlled. Her current hemoglobin is at 7.4. No further bouts of bleeding and the patient is currently on a medical floor with telemetry. IV fluids still running at 150 mL an hour. She remains nothing by mouth. She remains on IV Protonix. 2 chronic liver disease with previous history of hyperammonemia. Ammonia level is elevated and the patient is currently on lactulose. Rule out underlying hepatic encephalopathy 3 morbid obesity with obvious pickwickian features and possible obstructive sleep apnea. 4 history of schwannoma of the brachial plexus status post resection, comp licated by a wrist drop and contractures and muscle atrophy in the left upper extremity 5 complex regional pain syndrome 6 reflex empiric dystrophy and chronic pain 7 previous history of pancreatitis 8 previous history of hemorrhagic cystitis 9 history of chronic pain 10 previous history of GI bleed 11 previous history of UTI with secondary septic shock 12 mild lactic acidosis secondary to above 13 troponin leak secondary to above 14 hyperchloremic hypernatremia, and the sodium level is at 145. Plan Monitor hemoglobin IV fluids with normal saline at the rate of 150 mL an hour IV Protonix EGD completed and the results were noted Lactulose for hepatic encephalopathy Rocephin IV as an empiric antibiotic coverage Correlation profile is within normal Pulmonary critical care services will sign off
--- NOTE | 2020-06-06 11:40 | P.PN ---
Progress Note - Text Progress Note Date: 06/06/20 Patient feels well. She states she is hungry. She is requesting some 8. On exam her vital signs are still. Abdomen soft. There is no significant tenderness. Hemoglobin to 7.4. Healing duodenal ulcer. Patient will start on clear liquid diet.
--- NOTE | 2020-06-06 14:34 | P.PN ---
Subjective This is a pleasant 50 years old female with past medical history of asthma and COPD, pickwickian syndrome, schwannoma of the brachioplexus, status post surgical resection, located by left wrist a drop and chronic contractures and muscular atrophy of the left upper extremity. Complex regional pain syndrome. Reflex sympathetic dystrophy. Pancreatitis. Morbid obesity. History of hemorrhagic cystitis. History of GI bleed. Patient presents because of black tarry stool for more than 24 hours and today she was started vomiting of blood, air in the emergency room she had 3 large bowel movement and one small one, all of them that black stool. Also earlier she vomited one time and there was bloody discharge. She denies headache or chest pain however she has epigastric abdominal pain for 2 weeks as she states. She states she fell yesterday and passed out and hit her head but she denies chest pain or dyspnea. She denies drinking alcohol, she is taking pain medication but she could not number what medication it is. She is looks a little bit confused and poor historian, she can give some information but not very details Labs showing drop of hemoglobin from 10.4, 9.1 and 7.9. Risks of CBC is unremarkable. INR is normal. Elevated lactic acid came back to normal. Ammonia is elevated at 40, troponin is slightly elevated at 0.1. Potassium 3.2, wrist BMP is unremarkable, Troponin is elevated at 0.1 . UA is suspicious of infection. 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 She is also on ceftriaxone empirically, I'll likely she has UTI most likely is asymptomatic bacteriuria as patient with no urinary symptoms and her urine culture is negative Patient can be moved out of the ICU today 06/06/2020 patient is seen and selected to need. She is fully awake and oriented, she states that she has frequent bowel movement about ten between yesterday and today, we will lower her lactulose to once daily. Her ammonia level is a slightly elevated however her mentation is significantly improved EGD found large duodenal ulcer with active bleeding status post Endo Clip placement, continue with Protonix IV twice daily and avoid anticoagulation, patient was counseled to avoid NSAIDs like Motrin and Mobic and she agrees. Vityodit looks stable and her tachycardia is improving down to 111, so we'll keep her on IV fluid at 1 50 mL/h doses is improving down to normal today. BMP is unremarkable. Ammonia is 57 continue with ceftriaxone, Protonix and normal saline Review of Systems CONSTITUTIONAL: No fever, no malaise, no fatigue. HEENT: No recent visual problems or hearing problems. Denied any sore throat. CARDIOVASCULAR: No orthopnea, PND, no palpitations, no syncope. PULMONARY: No shortness of breath, no cough, no hemoptysis. GASTROINTESTINAL: No diarrhea, no nausea, no vomiting, no abdominal pain. Normoactive bowel sounds. NEUROLOGICAL: No headaches, no weakness, no numbness. Active Medications Generic Name Dose Route Start Last Admin Trade Name Freq PRN Reason Stop Dose Admin Acetaminophen 650 mg 06/05/20 01:09 06/05/20 17:13 Acetaminophen Tab 325 Mg Tab PO 650 mg Q6HR PRN Administration Fever and/ or Pain Bupropion HCl 100 mg 06/05/20 09:00 06/06/20 08:14 Bupropion 100 Mg Tab PO 100 mg BID ISIAH Administration Cyclobenzaprine HCl 10 mg 06/05/20 09:00 06/06/20 08:14 Cyclobenzaprine 10 Mg Tab PO 10 mg TID ISIAH Administration Sodium Chloride 1,000 mls @ 150 mls/hr 06/04/20 16:15 06/06/20 07:34 Saline 0.9% IV 150 mls/hr .Q6H40M ISIAH Administration Ceftriaxone Sodium 1 gm/ 50 mls @ 100 mls/hr 06/05/20 09:00 06/06/20 08:13 Sodium Chloride IVPB 100 mls/hr Q24HR ISIAH Administration Lactulose 30 gm 06/04/20 12:30 06/06/20 08:14 Lactulose 20 Gm/30 Ml Cup PO 30 gm TID ISIAH Administration Levothyroxine Sodium 50 mcg 06/05/20 06:30 06/06/20 06:31 Levothyroxine 50 Mcg Tab PO Not Given DAILY@0630 ISIAH Metoprolol Tartrate 12.5 mg 06/06/20 09:00 06/06/20 04:22 Metoprolol Tartrate 12.5 Mg Tab PO 12.5 mg BID ISIAH Administration Mirtazapine 15 mg 06/05/20 22:45 06/05/20 23:05 Mirtazapine 15 Mg Tab PO 15 mg HS ISIAH Administration Miscellaneous Information 1 each 06/05/20 19:18 Potassium Replacement Protocol 1 Each Misc MISCELLANE DAILY PRN Per Protocol Protocol Morphine Sulfate 60 mg 06/05/20 23:15 06/06/20 08:14 Morphine Sulfate Er 30 Mg Tablet PO 60 mg Q12HR ISIAH Administration Naloxone HCl 0.2 mg 06/04/20 11:15 Naloxone 0.4 Mg/Ml 1 Ml Vial IV Q2M PRN Opioid Reversal Ondansetron HCl 4 mg 06/05/20 13:30 06/05/20 22:38 Ondansetron 4 Mg/2 Ml Vial IVP 4 mg Q6HR PRN Administration Nausea And Vomiting Pantoprazole Sodium 40 mg 06/05/20 21:00 06/06/20 08:15 Pantoprazole 40 Mg/10 Ml Vial IVP 40 mg BID ISIAH Administration Trimethobenzamide HCl 300 mg 06/04/20 14:15 06/06/20 12:30 Trimethobenzamide 300 Mg Cap PO 300 mg QID ISIAH Administration Objective - Vital Signs Vital signs: Vital Signs Temp 99.1 F 06/06/20 11:26 Pulse 111 H 06/06/20 11:26 Resp 18 06/06/20 11:26 BP 127/88 06/06/20 11:26 Pulse Ox 99 06/06/20 11:26 Intake & Output 06/05/20 06/06/20 06/06/20 18:59 06:59 18:59 Intake Total 3350 500 750 Output Total 2203 850 Balance 1147 -350 750 Weight 130.7 kg Intake: IV 1400 500 750 Potassium Chloride 10 meq 200 In Water For Injection 1 100ml.bag @ 100 mls/hr IVPB Q1HR ISIAH Rx#: [id number] Sodium Chloride 0.9% 1, 300 700 000 ml @ 150 mls/hr IV . Q6H40M ISIAH Rx#:[id number] cefTRIAXone 1 gm In 50 Sodium Chloride 0.9% 50 ml @ 100 mls/hr IVPB Q24HR ISIAH Rx#:[id number] Intake, IV Titration 1950 Amount Potassium Chloride 10 meq 400 In Water For Injection 1 100ml.bag @ 100 mls/hr IVPB Q1HR ISIAH Rx#: [id number] Sodium Chloride 0.9% 1, 1500 000 ml @ 150 mls/hr IV . Q6H40M ISIAH Rx#:[id number] cefTRIAXone 1 gm In 50 Sodium Chloride 0.9% 50 ml @ 100 mls/hr IVPB Q24HR ISIAH Rx#:[id number] Output: Urine 2203 850 Other: Voiding Method Indwelling Catheter Indwelling Catheter Indwelling Catheter # Bowel Movements 1 1 - Exam -GENERAL: The patient is alert and oriented x2-3, slightly confused, not in any acute distress. Obese HEENT: Pupils are round and equally reacting to light. EOMI. No scleral icterus. No conjunctival pallor. Normocephalic, atraumatic. No pharyngeal erythema. No thyromegaly. CARDIOVASCULAR: S1 and S2 present. No murmurs, rubs, or gallops. PULMONARY: Chest is clear to auscultation, no wheezing or crackles. -ABDOMEN: Soft, epigastric tenderness, nondistended, normoactive bowel sounds. No palpable organomegaly. MUSCULOSKELETAL: No joint swelling or deformity. EXTREMITIES: No cyanosis, clubbing, or pedal edema. -NEUROLOGICAL: Gross neurological examination did not reveal any focal deficits. Left wrist drop (chronic) SKIN: No rashes. no petechiae. - Labs CBC & Chem 7: 06/06/20 07:11 06/06/20 07:42 Labs: Abnormal Lab Results - Last 24 Hours (Table) 06/05/20 06/05/20 06/06/20 Range/Units 18:08 18:08 07:11 WBC 11.6 H (3.8-10.6) k/uL RBC 2.54 L 2.31 L (3.80-5.40) m/uL Hgb 8.0 L 7.4 L (11.4-16.0) gm/dL Hct 23.8 L 21.9 L (34.0-46.0) % RDW 15.7 H (11.5-15.5) % Potassium 3.4 L (3.5-5.1) mmol/L Chloride (98-107) mmol/L Carbon Dioxide (22-30) mmol/L BUN (7-17) mg/dL Glucose (74-99) mg/dL Ammonia (<30) umol/L 06/06/20 06/06/20 Range/Units 07:11 07:42 WBC (3.8-10.6) k/uL RBC (3.80-5.40) m/uL Hgb (11.4-16.0) gm/dL Hct (34.0-46.0) % RDW (11.5-15.5) % Potassium (3.5-5.1) mmol/L Chloride 125 H (98-107) mmol/L Carbon Dioxide 18 L (22-30) mmol/L BUN 20 H (7-17) mg/dL Glucose 111 H (74-99) mg/dL Ammonia 57 H (<30) umol/L Microbiology - Last 24 Hours (Table) 06/04/20 08:34 Urine Culture - Final Urine,Voided Assessment and Plan Assessment: Acute upper GI bleed, secondary to large duodenal ulcer status post Endo Clip placement possible hepatic encephalopathy, resolved Asymptomatic bacteriuria tract infection Altered mental status, improved elevated troponin, nonspecific. Most likely it's demand ischemia. Echocardiogram showing normal ejection fraction at 55 with normal LV function and no hypokinesia Chronic asthma and COPD, pickwickian syndrome, History of schwannoma of the brachioplexus, status post surgical resection, located by left wrist a drop and chronic contractures and muscular atrophy of the left upper extremity. Complex regional pain syndrome. History of Reflex sympathetic dystrophy. History of Pancreatitis. Morbid obesity. History of hemorrhagic cystitis. History of GI bleed. Plan: This is a pleasant 50 years old female who presents with possible GI bleed. Secondary to large duodenal ulcer. Continue with Protonix. Continue with GI, surgery and pulmonary/critical care team were following the case Labs and medication were reviewed.. Continue same treatment. Continue with symptomatic treatment. Resume home medication. Monitor lytes and vitals. DVT and GI prophylaxis. Further recommendations as per clinical course of the p atient linical course of the patient DVT prophylaxis: No heparin in view of possible GI bleed GI Prophylaxis: Ppi
--- NOTE | 2020-06-06 17:42 | P.PN ---
Subjective Progress Note Date: 06/06/20 Principal diagnosis: Anemia of acute blood loss, upper GI bleed, duodenal ulcer The patient is seen lying in bed. No further nausea, vomiting or hematemesis. No bowel movements or melena reported. Objective - Vital Signs Vital signs: Vital Signs Temp 98.5 F 06/06/20 08:00 Pulse 111 H 06/06/20 08:00 Resp 18 06/06/20 08:00 BP 107/61 06/06/20 08:00 Pulse Ox 97 06/06/20 08:00 Intake & Output 06/05/20 06/06/20 06/06/20 18:59 06:59 18:59 Intake Total 3350 500 Output Total 2203 850 Balance 1147 -350 Weight 130.7 kg Intake: IV 1400 500 Potassium Chloride 10 meq 200 In Water For Injection 1 100ml.bag @ 100 mls/hr IVPB Q1HR ISIAH Rx#: [id number] Sodium Chloride 0.9% 1, 300 000 ml @ 150 mls/hr IV . Q6H40M ISIAH Rx#:[id number] Intake, IV Titration 1950 Amount Potassium Chloride 10 meq 400 In Water For Injection 1 100ml.bag @ 100 mls/hr IVPB Q1HR ISIAH Rx#: [id number] Sodium Chloride 0.9% 1, 1500 000 ml @ 150 mls/hr IV . Q6H40M ISIAH Rx#:[id number] cefTRIAXone 1 gm In 50 Sodium Chloride 0.9% 50 ml @ 100 mls/hr IVPB Q24HR ISIAH Rx#:[id number] Output: Urine 2203 850 Other: Voiding Method Indwelling Catheter Indwelling Catheter Indwelling Catheter # Bowel Movements 1 1 - Exam On physical examination, patient appears comfortable in no apparent distress. HEAD: Normocephalic, atraumatic. EYES: No scleral icterus. No conjunctival injection. MOUTH: No lesions, tongue midline. NECK: Trachea midline, no gross abnormalities. ABDOMEN: Soft, obese, nontender to palpation. Bowel sounds are positive. No organomegaly. No guarding or rigidity. EXTREMITIES: No pedal edema. SKIN: No rashes, no jaundice. NEUROLOGIC: Alert and oriented x3. No focal deficits. - Labs CBC & Chem 7: 06/06/20 07:11 06/06/20 07:42 Labs: Abnormal Lab Results - Last 24 Hours (Table) 06/05/20 06/05/20 06/05/20 Range/Units 05:47 05:47 12:15 WBC 13.8 H (3.8-10.6) k/uL RBC 2.58 L (3.80-5.40) m/uL Hgb 8.2 L (11.4-16.0) gm/dL Hct 23.8 L (34.0-46.0) % RDW (11.5-15.5) % Potassium (3.5-5.1) mmol/L Chloride (98-107) mmol/L Carbon Dioxide (22-30) mmol/L BUN (7-17) mg/dL Glucose (74-99) mg/dL POC Glucose (mg/dL) (75-99) mg/dL % Saturation 54.66 H (12.00-45.00) Ammonia (<30) umol/L Procalcitonin 0.15 H (0.02-0.09) ng/mL 06/05/20 06/05/20 06/05/20 Range/Units 13:06 18:08 18:08 WBC 11.6 H (3.8-10.6) k/uL RBC 2.54 L (3.80-5.40) m/uL Hgb 8.0 L (11.4-16.0) gm/dL Hct 23.8 L (34.0-46.0) % RDW (11.5-15.5) % Potassium 3.4 L (3.5-5.1) mmol/L Chloride (98-107) mmol/L Carbon Dioxide (22-30) mmol/L BUN (7-17) mg/dL Glucose (74-99) mg/dL POC Glucose (mg/dL) 137 H (75-99) mg/dL % Saturation (12.00-45.00) Ammonia (<30) umol/L Procalcitonin (0.02-0.09) ng/mL 06/06/20 06/06/20 06/06/20 Range/Units 07:11 07:11 07:42 WBC (3.8-10.6) k/uL RBC 2.31 L (3.80-5.40) m/uL Hgb 7.4 L (11.4-16.0) gm/dL Hct 21.9 L (34.0-46.0) % RDW 15.7 H (11.5-15.5) % Potassium (3.5-5.1) mmol/L Chloride 125 H (98-107) mmol/L Carbon Dioxide 18 L (22-30) mmol/L BUN 20 H (7-17) mg/dL Glucose 111 H (74-99) mg/dL POC Glucose (mg/dL) (75-99) mg/dL % Saturation (12.00-45.00) Ammonia 57 H (<30) umol/L Procalcitonin (0.02-0.09) ng/mL Microbiology - Last 24 Hours (Table) 06/04/20 08:34 Urine Culture - Final Urine,Voided Assessment and Plan (1) Anemia associated with acute blood loss Narrative/Plan: 50-year-old female multiple medical comorbidities including prior history of a duodenal ulcer in 2013 presented to the hospital with complaints of hematemesis and melena. Found to have an acute fall in her hemoglobin. EGD performed with findings of a bleeding duodenal ulcer treated with epinephrine injection, Gold probe ablation and Endo Clip placement 3. Current Visit: Yes Status: Acute Code(s): D62 - ACUTE POSTHEMORRHAGIC ANEMIA SNOMED Code(s): 172299355 (2) Acute upper GI hemorrhage Current Visit: Yes Status: Acute Code(s): K92.2 - GASTROINTESTINAL HEMORRHAGE, UNSPECIFIED SNOMED Code(s): 94109992 (3) Hematemesis/vomiting blood Current Visit: Yes Status: Acute Code(s): K92.0 - HEMATEMESIS SNOMED Code(s): 9576873 (4) Melena Current Visit: Yes Status: Acute Code(s): K92.1 - MELENA SNOMED Code(s): 5862259 (5) Duodenal ulcer Current Visit: Yes Status: Acute Code(s): K26.9 - DUODENAL ULCER, UNSP ACUTE OR CHRONIC, W/O HEMOR OR PERF SNOMED Code(s): 79833295 Plan: Supportive care Clear liquid diet started IV Protonix therapy Continue to monitor hemoglobin and hematocrit and transfuse as needed Continue to monitor for signs and symptoms of GI bleeding Avoid NSAID use Surgical service consult Thank you for allowing us to suspect in the care of the patient we will continue to follow
[2020-06-06] MEDS: MIRTAZAPINE 15 MG TAB PO SCH (21:17)
[2020-06-07] MEDS: SODIUM CHLORIDE 0.9% 1,000 ML IV SCH ×3 (04:57→18:25)
[2020-06-07] MEDS: FERROUS SULFATE 325 MG TAB PO SCH ×2 (06:38→16:56)
[2020-06-07] MEDS: LEVOTHYROXINE 50 MCG TAB PO SCH (06:38)
[2020-06-07 07:58] LABS: African American GFR (CKD) >90 (>60 ml/min/1.73 sqM); Anion Gap 2 mmol/L; Blood Urea Nitrogen 10 mg/dL (7-17); Calcium 8.1 mg/dL (8.4-10.2); Carbon Dioxide 19 mmol/L (22-30); Chloride 119 mmol/L (98-107); Glucose 86 mg/dL (74-99); Magnesium 1.6 mg/dL (1.6-2.3); Non-African American GFR(CKD) >90 (>60 ml/min/1.73 sqM); Potassium 3.3 mmol/L (3.5-5.1); Sodium 140 mmol/L (137-145)
[2020-06-07 08:11] LABS: Anisocytosis Slight; Basophils # (A) 0.1 k/uL (0-0.2); Basophils % (A) 1 %; Eosinophils # (A) 0.3 k/uL (0-0.7); Eosinophils % (A) 4 %; HCT 21.4 % (34.0-46.0); Hypochromasia Slight; Lymphocytes % (A) 26 %; MCH 30.8 pg (25.0-35.0); MCHC 31.9 g/dL (31.0-37.0); MCV 96.4 fL (80.0-100.0); Macrocytosis Slight; Mean Platelet Volume 8.5; Monocytes # (A) 0.5 k/uL (0-1.0); Monocytes % (A) 6 %; Neutrophils # (A) 4.7 k/uL (1.3-7.7); Neutrophils % (A) 61 %; Platelet Count 205 k/uL (150-450); Poikilocytosis Slight; RBC 2.22 m/uL (3.80-5.40); RDW 17.7 % (11.5-15.5); WBC 7.7 k/uL (3.8-10.6)
[2020-06-07 08:21] LABS: HGB 6.8 gm/dL (11.4-16.0)
[2020-06-07] MEDS: METOPROLOL TARTRATE 12.5 MG TAB PO SCH ×2 (10:21→21:40)
[2020-06-07] MEDS: CYCLOBENZAPRINE 10 MG TAB PO SCH ×3 (10:22→21:41)
[2020-06-07] MEDS: MORPHINE SULFATE ER 30 MG TABLET PO SCH ×2 (10:22→21:40)
[2020-06-07] MEDS: buPROPion 100 MG TAB PO SCH ×2 (10:22→21:39)
[2020-06-07] MEDS: LACTULOSE 20 GM/30 ML CUP PO SCH (10:23)
[2020-06-07] MEDS: PANTOPRAZOLE 40 MG/10 ML VIAL IVP SCH ×2 (10:23→21:41)
[2020-06-07] MEDS: TRIMETHOBENZAMIDE 300 MG CAP PO SCH ×4 (10:24→21:39)
--- NOTE | 2020-06-07 10:40 | P.PN ---
Subjective Progress Note Date: 06/07/20 CHIEF COMPLAINT: GI bleed HISTORY OF PRESENT ILLNESS: Patient is being followed for GI bleed. She has a duodenal ulcer and is status post epinephrine injection, gold probe ablation and Endo Clip placement 3 by GI service. Patient is still reporting black stools. She had multiple black stools through the night. Her hemoglobin has dropped to 6.8. She will be receiving 1 unit of blood today. Afebrile WBC 7.7 currently on a clear liquid diet. She did report shortness of breath PHYSICAL EXAM: VITAL SIGNS: Reviewed. GENERAL: Well-developed in no acute distress. HEENT: No sclera icterus. Extraocular movements grossly intact. Moist buccal mucosa. Head is atraumatic, normocephalic. ABDOMEN: Soft. Obese. Nondistended. Nontender. NEUROLOGIC: Alert and oriented. Cranial nerves II through XII grossly intact. ASSESSMENT: 1. Acute upper GI bleed secondary to bleeding duodenal ulcer 2. Acute blood loss anemia secondary to GI bleed 3. Duodenal ulcer status post epinephrine injection, ablation and clip placement by GI service 4. Hypokalemia potassium being replaced PLAN: -We'll transfuse 1 unit of blood for hemoglobin of 6.8 -Continue to monitor hemoglobin -Continue IV Protonix -Continue to monitor for signs and symptoms of bleeding Physician Global Security Architect note has been reviewed by physician. Signing provider agrees with the documented findings, assessment, and plan of care. Objective - Vital Signs Vital signs: Vital Signs Temp 98.6 F 06/07/20 04:00 Pulse 108 H 06/07/20 04:00 Resp 18 06/07/20 04:00 BP 141/67 06/07/20 04:00 Pulse Ox 97 06/07/20 04:00 Intake & Output 06/06/20 06/07/20 06/07/20 18:59 06:59 18:59 Intake Total 1710 300 Output Total 800 Balance 1710 -800 300 Intake: IV 750 Sodium Chloride 0.9% 1, 700 000 ml @ 150 mls/hr IV . Q6H40M ISIAH Rx#:[id number] cefTRIAXone 1 gm In 50 Sodium Chloride 0.9% 50 ml @ 100 mls/hr IVPB Q24HR ISIAH Rx#:[id number] Oral 960 300 Output: Urine 800 Other: Voiding Method Indwelling Catheter Indwelling Catheter - Labs CBC & Chem 7: 06/07/20 07:16 06/07/20 07:16 Labs: Abnormal Lab Results - Last 24 Hours (Table) 06/07/20 06/07/20 Range/Units 07:16 07:16 RBC 2.22 L (3.80-5.40) m/uL Hgb 6.8 L* (11.4-16.0) gm/dL Hct 21.4 L (34.0-46.0) % RDW 17.7 H (11.5-15.5) % Potassium 3.3 L (3.5-5.1) mmol/L Chloride 119 H (98-107) mmol/L Carbon Dioxide 19 L (22-30) mmol/L Creatinine 0.49 L (0.52-1.04) mg/dL Calcium 8.1 L (8.4-10.2) mg/dL
--- NOTE | 2020-06-07 11:23 | P.PN ---
Subjective Progress Note Date: 06/07/20 Principal diagnosis: Upper GI bleed The 42-year-old female who presented to the hospital with complaints of hematemesis and melonotic stools. She had a previous history of a duodenal ulcer in 2013. She is status post upper endoscopy this admission which showed an active bleeding ulcer in the duodenal sweep, endoclipped 3 and treated with cold probe ablation with epinephrine. The patient also has a history of metabolic encephalopathy, she had not been taking lactulose at home. She was noted to have elevated ammonia level on admission. Today's ammonia was 29. She is alert and oriented to self only. She is able to follow commands, seems to be answering some questions appropriately. The patient reports chronic pain in her left upper extremity and shoulder, also states she has abdominal pain. She had a drop in her hemoglobin this morning to 6.8, 1 unit of packed red blood cells as ordered. She is not having any nausea or vomiting, no reported melena. Objective - Vital Signs Vital signs: Vital Signs Temp 98.6 F 06/07/20 04:00 Pulse 108 H 06/07/20 04:00 Resp 18 06/07/20 04:00 BP 141/67 06/07/20 04:00 Pulse Ox 97 06/07/20 04:00 Intake & Output 06/06/20 06/07/20 06/07/20 18:59 06:59 18:59 Intake Total 1710 300 Output Total 800 Balance 1710 -800 300 Intake: IV 750 Sodium Chloride 0.9% 1, 700 000 ml @ 150 mls/hr IV . Q6H40M ISIAH Rx#:[id number] cefTRIAXone 1 gm In 50 Sodium Chloride 0.9% 50 ml @ 100 mls/hr IVPB Q24HR ISIAH Rx#:[id number] Oral 960 300 Output: Urine 800 Other: Voiding Method Indwelling Catheter Indwelling Catheter - Exam General appearance: The patient is alert, oriented, in no acute distress. Morbidly obese. HET: Head is normocephalic and atraumatic. Conjunctiva pink. Sclera anicteric. Neck: Supple without lymphadenopathy. Abdomen: Soft, morbidly obese, diffuse tenderness, nondistended with bowel sounds. No guarding or rigidity. Extremities: Normal skin color and turgor. No pedal edema Neurological: No focal deficits. Alert and oriented 3. - Labs CBC & Chem 7: 06/07/20 07:16 06/07/20 07:16 Labs: Abnormal Lab Results - Last 24 Hours (Table) 06/07/20 06/07/20 Range/Units 07:16 07:16 RBC 2.22 L (3.80-5.40) m/uL Hgb 6.8 L* (11.4-16.0) gm/dL Hct 21.4 L (34.0-46.0) % RDW 17.7 H (11.5-15.5) % Potassium 3.3 L (3.5-5.1) mmol/L Chloride 119 H (98-107) mmol/L Carbon Dioxide 19 L (22-30) mmol/L Creatinine 0.49 L (0.52-1.04) mg/dL Calcium 8.1 L (8.4-10.2) mg/dL Assessment and Plan (1) Anemia associated with acute blood loss Narrative/Plan: This is a 50-year-old female with multiple medical comorbidities including prior history of duodenal ulcer 2014 presented to the hospital with complaints of hematemesis and melena. Found to have an acute fall in her hemoglobin. EGD was performed with findings of bleeding duodenal ulcer treated with epinephrine injection, gold probe ablation and Endo clip placement 3. Hemoglobin today 6.8, no active bleeding noted. Patient is going to be transfused with 1 unit of packed red blood cells. Current Visit: Yes Status: Acute Code(s): D62 - ACUTE POSTHEMORRHAGIC ANEMIA SNOMED Code(s): 498404357 (2) Acute upper GI hemorrhage Current Visit: Yes Status: Acute Code(s): K92.2 - GASTROINTESTINAL HEMORRHAGE, UNSPECIFIED SNOMED Code(s): 74349709 (3) Duodenal ulcer Current Visit: Yes Status: Acute Code(s): K26.9 - DUODENAL ULCER, UNSP ACUTE OR CHRONIC, W/O HEMOR OR PERF SNOMED Code(s): 94627944 (4) Hematemesis/vomiting blood Current Visit: Yes Status: Acute Code(s): K92.0 - HEMATEMESIS SNOMED Code(s): 7972229 (5) Melena Current Visit: Yes Status: Acute Code(s): K92.1 - MELENA SNOMED Code(s): 2777300 Plan: 1. Supportive care 2. Clear liquid diet 3. IV Protonix therapy 4. Continue to monitor hemoglobin and hematocrit and transfuse as needed 5. Agree with transfusion of 1 unit packed red blood cell 6. Avoid NSAID use 7. Appreciate recommendations per surgical services 8. We will continue to follow Dr. Kushal Rodgers I agree with the dictator's note, documented as a scribe by Anne Patricio.
--- NOTE | 2020-06-07 14:58 | P.PN ---
Subjective Progress Note Date: 06/07/20 This is a pleasant 50 years old female with past medical history of asthma and COPD, pickwickian syndrome, schwannoma of the brachioplexus, status post surgical resection, located by left wrist a drop and chronic contractures and muscular atrophy of the left upper extremity. Complex regional pain syndrome. Reflex sympathetic dystrophy. Pancreatitis. Morbid obesity. History of hemorrhagic cystitis. History of GI bleed. Patient presents because of black tarry stool for more than 24 hours and today she was started vomiting of blood, air in the emergency room she had 3 large bowel movement and one small one, all of them that black stool. Also earlier she vomited one time and there was bloody discharge. She denies headache or chest pain however she has epigastric abdominal pain for 2 weeks as she states. She states she fell yesterday and passed out and hit her head but she denies chest pain or dyspnea. She denies drinking alcohol, she is taking pain medication but she could not number what medication it is. She is looks a little bit confused and poor historian, she can give some information but not very details Labs showing drop of hemoglobin from 10.4, 9.1 and 7.9. Risks of CBC is unremarkable. INR is normal. Elevated lactic acid came back to normal. Ammonia is elevated at 40, troponin is slightly elevated at 0.1. Potassium 3.2, wrist BMP is unremarkable, Troponin is elevated at 0.1 . UA is suspicious of infection. Occult blood in stool is positive Patient has tachycardia with heart rate up around 07/25/1942, mostly sinus tachycardia, blood pressure is stable, she has low-grade temperature of 100.6 06/05/2020 Patient is more awake and stable today, her ammonia level back to normal however she did not have bowel movement while she is on lactulose She still complaining from epigastric pain in the view of her GI bleed she underwent EGD which found large duodenal ulcer which is actively bleeding and it was treated with an Endo Clip placement by GI team, surgery team solutions developer for standby but no need for any intervention for now. She is also on ceftriaxone em pirically, I'll likely she has UTI most likely is asymptomatic bacteriuria as patient with no urinary symptoms and her urine culture is negative Patient can be moved out of the ICU today 06/06/2020 patient is seen and selected to need. She is fully awake and oriented, she states that she has frequent bowel movement about ten between yesterday and today, we will lower her lactulose to once daily. Her ammonia level is a slightly elevated however her mentation is significantly improved EGD found large duodenal ulcer with active bleeding status post Endo Clip placement, continue with Protonix IV twice daily and avoid anticoagulation, patient was counseled to avoid NSAIDs like Motrin and Mobic and she agrees. Janet looks stable and her tachycardia is improving down to 111, so we'll keep her on IV fluid at 1 50 mL/h doses is improving down to normal today. BMP is unremarkable. Ammonia is 57 continue with ceftriaxone, Protonix and normal saline 06/07: Patient states that she had a bowel movement this morning which was black. Her hemoglobin is 6.8 and she has been ordered for second unit of packed RBCs for a total of 2 units during this hospitalization. She is continued on Protonix twice daily IV. Objective - Vital Signs Vital signs: Vital Signs Temp 98.6 F 06/07/20 04:00 Pulse 108 H 06/07/20 04:00 Resp 18 06/07/20 04:00 BP 141/67 06/07/20 04:00 Pulse Ox 97 06/07/20 04:00 Intake & Output 06/06/20 06/07/20 06/07/20 18:59 06:59 18:59 Intake Total 1710 300 Output Total 800 Balance 1710 -800 300 Intake: IV 750 Sodium Chloride 0.9% 1, 700 000 ml @ 150 mls/hr IV . Q6H40M [facility] Rx#:[id number] cefTRIAXone 1 gm In 50 Sodium Chloride 0.9% 50 ml @ 100 mls/hr IVPB Q24HR [facility] Rx#:[id number] Oral 960 300 Output: Urine 800 Other: Voiding Method Indwelling Catheter Indwelling Catheter - Exam Review of Systems CONSTITUTIONAL: No fever, no malaise, no fatigue. HEENT: No recent visual problems or hearing problems. Denied any sore throat. CARDIOVASCULAR: No orthopnea, PND, no palpitations, no syncope. PULMONARY: No shortness of breath, no cough, no hemoptysis. GASTROINTESTINAL: No diarrhea, no nausea, no vomiting, no abdominal pain. Normoactive bowel sounds. NEUROLOGICAL: No headaches, no weakness, no numbness. Physical examination - Constitutional General appearance: mild distress, morbidly obese - EENT Eyes: anicteric sclerae, EOMI, PERRLA, no ptosis, no scleral icterus, normal appearance ENT: hearing grossly normal, NA/AT, normal oropharynx, no thrush Ears: bilateral: normal - Neck Neck: no lymphadenopathy, normal ROM, no stridor, no thyromegaly Carotids: bilateral: upstroke normal Thyroid: bilateral: normal size - Respiratory Respiratory: bilateral: diminished, negative: dullness, rales, rhonchi, wheezing, prolonged expiration, prolonged inspiration - Cardiovascular Rhythm: regular Heart sounds: normal: S1, S2 Abnormal Heart Sounds: no systolic murmur, no diastolic murmur, no rub, no S3 Gallop, no S4 Gallop, no click - Gastrointestinal General gastrointestinal: normal bowel sounds, soft, no tenderness, no umbilical hernia, no ventral hernia - Integumentary Integumentary: normal, normal turgor - Neurologic Neurologic: CNII-XII intact - Musculoskeletal Musculoskeletal: generalized weakness, strength equal bilaterally, right sided weakness - Psychiatric Psychiatric: A&O x's 3, appropriate affect - Labs CBC & Chem 7: 06/07/20 07:16 06/07/20 07:16 Labs: Abnormal Lab Results - Last 24 Hours (Table) 06/07/20 06/07/20 Range/Units 07:16 07:16 RBC 2.22 L (3.80-5.40) m/uL Hgb 6.8 L* (11.4-16.0) gm/dL Hct 21.4 L (34.0-46.0) % RDW 17.7 H (11.5-15.5) % Potassium 3.3 L (3.5-5.1) mmol/L Chloride 119 H (98-107) mmol/L Carbon Dioxide 19 L (22-30) mmol/L Creatinine 0.49 L (0.52-1.04) mg/dL Calcium 8.1 L (8.4-10.2) mg/dL Assessment and Plan Assessment: 1. Acute upper GI bleed secondary to large duodenal ulcer status post Endo Clip placement. GI consult appreciated. General surgery consult appreciated. Continue Protonix 40 mg IV twice daily. 2. Acute blood loss anemia. Patient is status post 1 unit packed RBCs. Second unit of packed RBCs ordered for today. Monitor hemoglobin closely. Continue ferrous sulfate twice daily. 3. Metabolic encephalopathy, resolved. Continue lactulose 30 g daily. 4. Elevated troponin, acute coronary syndrome ruled out. Echocardiogram reveals EF of 55%. 5. Morbid obesity with BMI 47 with WEI and OHS will continue with CPAP. 6. History of Schwanoma of the left brachial plexus with resultant chronic regional pain syndrome (CRPS). Continue MS Contin 60 mg oral scheduled every 12 hours and 30 mg oral every 12 hours as needed for breakthrough pain. 7. History of Fibromyalgia. Continue current pain management. Continue Flexeril 10 mg orally 3 times every day. 8. Chronic anemia. Continue ferrous sulfate twice daily. 9. Asymptomatic bacteriuria. Discontinue Rocephin. 10. Recurrent depression and generalized anxiety disorder. Continue bupropion 100 mg po bid, Remeron 15 mg at bedtime and Xanax 0.25 mg twice daily as needed. 11. Hypothyroidism. Continue levothyroxine 50 g daily. 12. Supraventricular tachycardia. Continue Lopressor 25 mg twice daily. 13. 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 14. Chronic pain syndrome.will continue with current pain management. 15. DVT prophylaxis.SCD and EMILIANO victor. 16. GI prophylaxis.will continue with protonix 40 mg IV twice daily. Full code.
[2020-06-07] MEDS: MORPHINE SULFATE ER 30 MG TABLET PO PRN (16:56)
[2020-06-07] MEDS: MIRTAZAPINE 15 MG TAB PO SCH (21:40)
[2020-06-08] MEDS: SODIUM CHLORIDE 0.9% 1,000 ML IV SCH ×4 (04:10→20:50)
[2020-06-08] MEDS: LEVOTHYROXINE 50 MCG TAB PO SCH (06:35)
[2020-06-08] MEDS: FERROUS SULFATE 325 MG TAB PO SCH ×2 (06:35→15:12)
[2020-06-08] MEDS: MORPHINE SULFATE ER 30 MG TABLET PO PRN (06:40)
[2020-06-08] MEDS: PANTOPRAZOLE 40 MG/10 ML VIAL IVP SCH ×2 (08:54→20:49)
[2020-06-08] MEDS: CYCLOBENZAPRINE 10 MG TAB PO SCH ×3 (08:55→20:48)
[2020-06-08] MEDS: METOPROLOL TARTRATE 12.5 MG TAB PO SCH ×2 (08:55→20:48)
[2020-06-08] MEDS: MORPHINE SULFATE ER 30 MG TABLET PO SCH ×2 (08:55→20:49)
[2020-06-08] MEDS: LACTULOSE 20 GM/30 ML CUP PO SCH ×2 (08:55→20:49)
[2020-06-08] MEDS: buPROPion 100 MG TAB PO SCH ×2 (08:56→20:49)
[2020-06-08] MEDS: TRIMETHOBENZAMIDE 300 MG CAP PO SCH ×4 (08:56→20:49)
[2020-06-08 10:17] LABS: Anisocytosis Slight; Basophils # (A) 0.1 k/uL (0-0.2); Basophils % (A) 1 %; Eosinophils # (A) 0.4 k/uL (0-0.7); Eosinophils % (A) 6 %; HCT 24.3 % (34.0-46.0); HGB 8.2 gm/dL (11.4-16.0); Lymphocytes # (A) 1.8 k/uL (1.0-4.8); Lymphocytes % (A) 26 %; MCH 31.2 pg (25.0-35.0); MCHC 33.8 g/dL (31.0-37.0); MCV 92.2 fL (80.0-100.0); Monocytes # (A) 0.4 k/uL (0-1.0); Monocytes % (A) 5 %; Neutrophils # (A) 4.1 k/uL (1.3-7.7); Neutrophils % (A) 59 %; Platelet Count 220 k/uL (150-450); Poikilocytosis Moderate; RBC 2.64 m/uL (3.80-5.40); RDW 18.3 % (11.5-15.5); WBC 6.9 k/uL (3.8-10.6)
[2020-06-08 10:28] LABS: African American GFR (CKD) >90 (>60 ml/min/1.73 sqM); Anion Gap 2 mmol/L; Blood Urea Nitrogen <2 mg/dL (7-17); Calcium 8.2 mg/dL (8.4-10.2); Carbon Dioxide 20 mmol/L (22-30); Chloride 117 mmol/L (98-107); Glucose 105 mg/dL (74-99); Magnesium 1.5 mg/dL (1.6-2.3); Non-African American GFR(CKD) >90 (>60 ml/min/1.73 sqM); Potassium 2.9 mmol/L (3.5-5.1); Sodium 139 mmol/L (137-145)
[2020-06-08 10:39] LABS: Polychromasia Present
[2020-06-08] MEDS: ACETAMINOPHEN TAB 325 MG TAB PO PRN (11:23)
[2020-06-08] MEDS ORDERED: Magnesium Replacement Protocol 1 EACH MISC MISCELLANE PRN (11:46)
--- NOTE | 2020-06-08 12:44 | P.PN ---
Subjective Progress Note Date: 06/08/20 This is a pleasant 50 years old female with past medical history of asthma and COPD, pickwickian syndrome, schwannoma of the brachioplexus, status post surgical resection, located by left wrist a drop and chronic contractures and muscular atrophy of the left upper extremity. Complex regional pain syndrome. Reflex sympathetic dystrophy. Pancreatitis. Morbid obesity. History of hemorrhagic cystitis. History of GI bleed. Patient presents because of black tarry stool for more than 24 hours and today she was started vomiting of blood, air in the emergency room she had 3 large bowel movement and one small one, all of them that black stool. Also earlier she vomited one time and there was bloody discharge. She denies headache or chest pain however she has epigastric abdominal pain for 2 weeks as she states. She states she fell yesterday and passed out and hit her head but she denies chest pain or dyspnea. She denies drinking alcohol, she is taking pain medication but she could not number what medication it is. She is looks a little bit confused and poor historian, she can give some information but not very details Labs showing drop of hemoglobin from 10.4, 9.1 and 7.9. Risks of CBC is unremarkable. INR is normal. Elevated lactic acid came back to normal. Ammonia is elevated at 40, troponin is slightly elevated at 0.1. Potassium 3.2, wrist BMP is unremarkable, Troponin is elevated at 0.1 . UA is suspicious of infection. Occult blood in stool is positive Patient has tachycardia with heart rate up around 07/25/1942, mostly sinus tachycardia, blood pressure is stable, she has low-grade temperature of 100.6 06/05/2020 Patient is more awake and stable today, her ammonia level back to normal however she did not have bowel movement while she is on lactulose She still complaining from epigastric pain in the view of her GI bleed she underwent EGD which found large duodenal ulcer which is actively bleeding and it was treated with an Endo Clip placement by GI team, surgery team front desk admin for standby but no need for any intervention for now. She is also on ceftriaxone em pirically, I'll likely she has UTI most likely is asymptomatic bacteriuria as patient with no urinary symptoms and her urine culture is negative Patient can be moved out of the ICU today 06/06/2020 patient is seen and selected to need. She is fully awake and oriented, she states that she has frequent bowel movement about ten between yesterday and today, we will lower her lactulose to once daily. Her ammonia level is a slightly elevated however her mentation is significantly improved EGD found large duodenal ulcer with active bleeding status post Endo Clip placement, continue with Protonix IV twice daily and avoid anticoagulation, patient was counseled to avoid NSAIDs like Motrin and Mobic and she agrees. Vitas looks stable and her tachycardia is improving down to 111, so we'll keep her on IV fluid at 1 50 mL/h doses is improving down to normal today. BMP is unremarkable. Ammonia is 57 continue with ceftriaxone, Protonix and normal saline 06/07: Patient states that she had a bowel movement this morning which was black. Her hemoglobin is 6.8 and she has been ordered for second unit of packed RBCs for a total of 2 units during this hospitalization. She is continued on Protonix twice daily IV. 06/08: Repeat hemoglobin is 8.2 and she is status post a total of 2 units packed RBCs during this admission. Potassium is 2.9 and will be replaced with 120 mEq of potassium and recheck potassium this afternoon. Magnesium 1.5 and will be replaced with 2 g of magnesium. BUN less than 2 and creatinine 0.48. equipment monitor phototypesetting is a sinus tachycardia. Patient is afebrile, heart rate 122, blood pressure 123/66, pulse ox 99% on room air. IV is subcutaneous and midline was ordered. Objective - Vital Signs Vital signs: Vital Signs Temp 99.7 F H 06/08/20 08:00 Pulse 122 H 06/08/20 08:00 Resp 18 06/08/20 08:00 BP 123/63 06/08/20 08:00 Pulse Ox 99 06/08/20 08:00 Intake & Output 06/07/20 06/08/20 06/08/20 18:59 06:59 18:59 Intake Total 1690 300 Output Total 600 1700 Balance 1090 -1400 Intake: IV 300 Sodium Chloride 0.9% 1, 300 000 ml @ 150 mls/hr IV . Q6H40M [facility] Rx#:[id number] Oral 1380 Blood Product 310 Rc Pheresis 2 As3 Unit 310 [id number] Output: Urine 600 1700 Other: Voiding Method Indwelling Catheter Indwelling Catheter Indwelling Catheter - Exam Review of Systems CONSTITUTIONAL: No fever, no malaise, no fatigue. HEENT: No recent visual problems or hearing problems. Denied any sore throat. CARDIOVASCULAR: No orthopnea, PND, no palpitations, no syncope. PULMONARY: No shortness of breath, no cough, no hemoptysis. GASTROINTESTINAL: No diarrhea, no nausea, no vomiting, no abdominal pain. Normoactive bowel sounds. NEUROLOGICAL: No headaches, no weakness, no numbness. Physical examination - Constitutional General appearance: mild distress, morbidly obese - EENT Eyes: anicteric sclerae, EOMI, PERRLA, no ptosis, no scleral icterus, normal appearance ENT: hearing grossly normal, NA/AT, normal oropharynx, no thrush Ears: bilateral: normal - Neck Neck: no lymphadenopathy, normal ROM, no stridor, no thyromegaly Carotids: bilateral: upstroke normal Thyroid: bilateral: normal size - Respiratory Respiratory: bilateral: diminished, negative: dullness, rales, rhonchi, wheezing , prolonged expiration, prolonged inspiration - Cardiovascular Rhythm: regular Heart sounds: normal: S1, S2 Abnormal Heart Sounds: no systolic murmur, no diastolic murmur, no rub, no S3 Gallop, no S4 Gallop, no click Trace bilateral lower extremity edema - Gastrointestinal General gastrointestinal: normal bowel sounds, soft, no tenderness, no umbilical hernia, no ventral hernia - Integumentary Integumentary: normal, normal turgor - Neurologic Neurologic: CNII-XII intact - Musculoskeletal Musculoskeletal: generalized weakness, strength equal bilaterally, right sided weakness - Psychiatric Psychiatric: A&O x's 3, appropriate affect - Labs CBC & Chem 7: 06/08/20 09:55 06/08/20 09:55 Labs: Abnormal Lab Results - Last 24 Hours (Table) 06/07/20 06/08/20 06/08/20 Range/Units 11:13 09:55 09:55 RBC 2.64 L (3.80-5.40) m/uL Hgb 8.2 L (11.4-16.0) gm/dL Hct 24.3 L (34.0-46.0) % RDW 18.3 H (11.5-15.5) % Potassium 2.9 L (3.5-5.1) mmol/L Chloride 117 H (98-107) mmol/L Carbon Dioxide 20 L (22-30) mmol/L BUN <2 L (7-17) mg/dL Creatinine 0.48 L (0.52-1.04) mg/dL Glucose 105 H (74-99) mg/dL Calcium 8.2 L (8.4-10.2) mg/dL Magnesium 1.5 L (1.6-2.3) mg/dL Ammonia (<30) umol/L Crossmatch See Detail 06/08/20 Range/Units 09:55 RBC (3.80-5.40) m/uL Hgb (11.4-16.0) gm/dL Hct (34.0-46.0) % RDW (11.5-15.5) % Potassium (3.5-5.1) mmol/L Chloride (98-107) mmol/L Carbon Dioxide (22-30) mmol/L BUN (7-17) mg/dL Creatinine (0.52-1.04) mg/dL Glucose (74-99) mg/dL Calcium (8.4-10.2) mg/dL Magnesium (1.6-2.3) mg/dL Ammonia 99 H (<30) umol/L Crossmatch Assessment and Plan Assessment: 1. Acute upper GI bleed secondary to large duodenal ulcer status post Endo Clip placement. GI consult appreciated. General surgery consult appreciated. Continue Protonix 40 mg IV twice daily. Midline ordered. Avoid all NSAIDs. 2. Acute blood loss anemia. Patient is status post 2 units of packed RBCs. Monitor hemoglobin closely. Continue ferrous sulfate twice daily. 3. Metabolic encephalopathy, resolved. Continue lactulose 30 g daily. 4. Elevated troponin, acute coronary syndrome ruled out. Echocardiogram reveals EF of 55%. 5. Morbid obesity with BMI 47 with WEI and OHS will continue with CPAP. 6. History of Schwanoma of the left brachial plexus with resultant chronic regional pain syndrome (CRPS). Continue MS Contin 60 mg oral scheduled every 12 hours and 30 mg oral every 12 hours as needed for breakthrough pain. 7. History of Fibromyalgia. Continue current pain management. Continue Flexeril 10 mg orally 3 times every day. 8. Chronic anemia. Continue ferrous sulfate twice daily. 9. Asymptomatic bacteriuria. Discontinue Rocephin. 10. Recurrent depression and generalized anxiety disorder. Continue bupropion 100 mg po bid, Remeron 15 mg at bedtime and Xanax 0.25 mg twice daily as needed. 11. Hypothyroidism. Continue levothyroxine 50 g daily. 12. Supraventricular tachycardia. Continue Lopressor 25 mg twice daily. 13. 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 14. Chronic pain syndrome.will continue with current pain management. 15. DVT prophylaxis.SCD and EMILIANO hose. 16. GI prophylaxis.will continue with protonix 40 mg IV twice daily. Full code. [facility] [place] [facility]
--- NOTE | 2020-06-08 13:06 | P.PN ---
Subjective Progress Note Date: 06/08/20 Principal diagnosis: Upper GI bleed The 42-year-old female who presented to the hospital with complaints of hematemesis and melonotic stools. She had a previous history of a duodenal ulcer in 2013. She is status post upper endoscopy this admission which showed an active bleeding ulcer in the duodenal sweep, endoclipped 3 and treated with cold probe ablation with epinephrine. The patient also has a history of metabolic encephalopathy, she had not been taking lactulose at home. She was noted to have elevated ammonia level on admission. Her ammonia level has been trending down. Today she is more alert and oriented. She is able to follow commands. She states she has diffuse pain all over, states in her abdomen, and her left upper extremity and back. She had a bowel movement yesterday that was reported being dark. She has had no further bowel movements today. She denies any nausea or vomiting. He is on a clear liquid diet. She is being followed by surgery as well. Objective - Vital Signs Vital signs: Vital Signs Temp 100.0 F H 06/08/20 12:00 Pulse 111 H 06/08/20 12:00 Resp 18 06/08/20 12:00 BP 135/78 06/08/20 12:00 Pulse Ox 99 06/08/20 12:00 Intake & Output 06/07/20 06/08/20 06/08/20 18:59 06:59 18:59 Intake Total 1690 300 Output Total 600 1700 Balance 1090 -1400 Intake: IV 300 Sodium Chloride 0.9% 1, 300 000 ml @ 150 mls/hr IV . Q6H40M [facility] Rx#:[id number] Oral 1380 Blood Product 310 Rc Pheresis 2 As3 Unit 310 [id number] Output: Urine 600 1700 Other: Voiding Method Indwelling Catheter Indwelling Catheter Indwelling Catheter - Exam General appearance: The patient is alert, oriented, in no acute distress. Morbidly obese. HET: Head is normocephalic and atraumatic. Conjunctiva pink. Sclera anicteric. Neck: Supple without lymphadenopathy. Abdomen: Soft, morbidly obese, diffuse tenderness, nondistended with bowel sounds. No guarding or rigidity. Extremities: Normal skin color and turgor. No pedal edema Neurological: No focal deficits. Alert and oriented 3. - Labs CBC & Chem 7: 06/08/20 09:55 06/08/20 09:55 Labs: Abnormal Lab Results - Last 24 Hours (Table) 06/07/20 06/08/20 06/08/20 Range/Units 11:13 09:55 09:55 RBC 2.64 L (3.80-5.40) m/uL Hgb 8.2 L (11.4-16.0) gm/dL Hct 24.3 L (34.0-46.0) % RDW 18.3 H (11.5-15.5) % Potassium 2.9 L (3.5-5.1) mmol/L Chloride 117 H (98-107) mmol/L Carbon Dioxide 20 L (22-30) mmol/L BUN <2 L (7-17) mg/dL Creatinine 0.48 L (0.52-1.04) mg/dL Glucose 105 H (74-99) mg/dL Calcium 8.2 L (8.4-10.2) mg/dL Magnesium 1.5 L (1.6-2.3) mg/dL Ammonia (<30) umol/L Crossmatch See Detail 06/08/20 Range/Units 09:55 RBC (3.80-5.40) m/uL Hgb (11.4-16.0) gm/dL Hct (34.0-46.0) % RDW (11.5-15.5) % Potassium (3.5-5.1) mmol/L Chloride (98-107) mmol/L Carbon Dioxide (22-30) mmol/L BUN (7-17) mg/dL Creatinine (0.52-1.04) mg/dL Glucose (74-99) mg/dL Calcium (8.4-10.2) mg/dL Magnesium (1.6-2.3) mg/dL Ammonia 99 H (<30) umol/L Crossmatch Assessment and Plan (1) Anemia associated with acute blood loss Narrative/Plan: This is a 50-year-old female with multiple medical comorbidities including prior history of duodenal ulcer 2014 presented to the hospital with complaints of hematemesis and melena. Found to have an acute fall in her hemoglobin. EGD was performed with findings of bleeding duodenal ulcer treated with epinephrine injection, gold probe ablation and Endo clip placement 3. Hemoglobin today 6.8, no active bleeding noted. Patient is going to be transfused with 1 unit of packed red blood cells. Current Visit: Yes Status: Acute Code(s): D62 - ACUTE POSTHEMORRHAGIC ANEMIA SNOMED Code(s): 360510234 (2) Acute upper GI hemorrhage Current Visit: Yes Status: Acute Code(s): K92.2 - GASTROINTESTINAL HEMORRHAGE, UNSPECIFIED SNOMED Code(s): 76259510 (3) Duodenal ulcer Current Visit: Yes Status: Acute Code(s): K26.9 - DUODENAL ULCER, UNSP ACUTE OR CHRONIC, W/O HEMOR OR PERF SNOMED Code(s): 89519875 (4) Hematemesis/vomiting blood Current Visit: Yes Status: Acute Code(s): K92.0 - HEMATEMESIS SNOMED Code(s): 1166830 (5) Melena Current Visit: Yes Status: Acute Code(s): K92.1 - MELENA SNOMED Code(s): 0794489 Plan: 1. Supportive care 2. Clear liquid diet, advance per surgical recommendations 3. IV Protonix therapy 4. Continue to monitor hemoglobin and hematocrit and transfuse as needed 5. She is status post 2 units of PRBC is fusion 6. Avoid NSAID use 7. Appreciate recommendations per surgical services 8. Increase lactulose to 30 mg twice a day, titrate to have 3-4 bowel movements 9. Repeat ammonia level 10. We will continue to follow Dr. Kushal Rodgers I agree with the dictator's note, documented as a scribe by Anne Patricio.
--- NOTE | 2020-06-08 13:32 | P.PN ---
Subjective Progress Note Date: 06/08/20 CHIEF COMPLAINT: GI bleed HISTORY OF PRESENT ILLNESS: Patient is being followed for GI bleed. She has a duodenal ulcer and is status post epinephrine injection, gold probe ablation and Endo Clip placement 3 by GI service. Patient does report having black stool yesterday. She denies any nausea or vomiting. She did have a temp of 100. Heart rate 111 WBC 6.9. Patient is status post 1 unit of blood hemoglobin has increased from 6.8-8.2. Potassium 2.9 magnesium 1.5 PHYSICAL EXAM: VITAL SIGNS: Reviewed. GENERAL: Well-developed in no acute distress. HEENT: No sclera icterus. Extraocular movements grossly intact. Moist buccal mucosa. Head is atraumatic, normocephalic. ABDOMEN: Soft. Obese. Nondistended. Nontender. NEUROLOGIC: Alert and oriented. Cranial nerves II through XII grossly intact. ASSESSMENT: 1. Acute upper GI bleed secondary to bleeding duodenal ulcer 2. Acute blood loss anemia secondary to GI bleed 3. Duodenal ulcer status post epinephrine injection, ablation and clip placement by GI service 4. Hypokalemia and hypomagnesemia being replaced PLAN: -Continue to observe patient closely -Continue to monitor hemoglobin -Continue IV Protonix -Continue to monitor for signs and symptoms of bleeding Physician [employer]ry [employer] note has been reviewed by physician. Signing provider agrees with the documented findings, assessment, and plan of care. Objective - Vital Signs Vital signs: Vital Signs Temp 100.0 F H 06/08/20 12:00 Pulse 111 H 06/08/20 12:00 Resp 18 06/08/20 12:00 BP 135/78 06/08/20 12:00 Pulse Ox 99 06/08/20 12:00 Intake & Output 06/07/20 06/08/20 06/08/20 18:59 06:59 18:59 Intake Total 1690 300 Output Total 600 1700 Balance 1090 -1400 Intake: IV 300 Sodium Chloride 0.9% 1, 300 000 ml @ 150 mls/hr IV . Q6H40M [facility] Rx#:[id number] Oral 1380 Blood Product 310 Rc Pheresis 2 As3 Unit 310 [id number] Output: Urine 600 1700 Other: Voiding Method Indwelling Catheter Indwelling Catheter Indwelling Catheter - Labs CBC & Chem 7: 06/08/20 09:55 06/08/20 09:55 Labs: Abnormal Lab Results - Last 24 Hours (Table) 06/07/20 06/08/20 06/08/20 Range/Units 11:13 09:55 09:55 RBC 2.64 L (3.80-5.40) m/uL Hgb 8.2 L (11.4-16.0) gm/dL Hct 24.3 L (34.0-46.0) % RDW 18.3 H (11.5-15.5) % Potassium 2.9 L (3.5-5.1) mmol/L Chloride 117 H (98-107) mmol/L Carbon Dioxide 20 L (22-30) mmol/L BUN <2 L (7-17) mg/dL Creatinine 0.48 L (0.52-1.04) mg/dL Glucose 105 H (74-99) mg/dL Calcium 8.2 L (8.4-10.2) mg/dL Magnesium 1.5 L (1.6-2.3) mg/dL Ammonia (<30) umol/L Crossmatch See Detail 06/08/20 Range/Units 09:55 RBC (3.80-5.40) m/uL Hgb (11.4-16.0) gm/dL Hct (34.0-46.0) % RDW (11.5-15.5) % Potassium (3.5-5.1) mmol/L Chloride (98-107) mmol/L Carbon Dioxide (22-30) mmol/L BUN (7-17) mg/dL Creatinine (0.52-1.04) mg/dL Glucose (74-99) mg/dL Calcium (8.4-10.2) mg/dL Magnesium (1.6-2.3) mg/dL Ammonia 99 H (<30) umol/L Crossmatch
[2020-06-08] MEDS: POTASSIUM CHLORIDE ER 20 MEQ TAB.ER PO SCH ×3 (15:12→20:47)
[2020-06-08] MEDS: MAGNESIUM SULFATE-D5W PMX 1 GM in DEXTROSE/WATER 1 100ML.BAG IVPB SCH ×2 (15:12→17:30)
[2020-06-08 15:22] VITALS: BMI 47.9
[2020-06-08] MEDS: ALPRAZolam 0.25 MG TAB PO PRN (20:48)
[2020-06-08] MEDS: MIRTAZAPINE 15 MG TAB PO SCH (20:48)
[2020-06-09] MEDS: MORPHINE SULFATE ER 30 MG TABLET PO PRN (02:39)
[2020-06-09] MEDS: ALPRAZolam 0.25 MG TAB PO PRN ×3 (02:40→21:32)
[2020-06-09] MEDS ORDERED: FUROSEMIDE 10 MG/ML 4 ML VIAL IV STA (03:41)
[2020-06-09] MEDS: SODIUM CHLORIDE 0.9% 1,000 ML IV SCH (04:51)
[2020-06-09] MEDS: FERROUS SULFATE 325 MG TAB PO SCH ×2 (07:00→15:09)
[2020-06-09] MEDS: LEVOTHYROXINE 50 MCG TAB PO SCH (07:00)
[2020-06-09] MEDS: TRIMETHOBENZAMIDE 300 MG CAP PO SCH ×4 (08:07→21:34)
[2020-06-09] MEDS: METOPROLOL TARTRATE 12.5 MG TAB PO SCH ×2 (08:07→21:32)
[2020-06-09] MEDS: CYCLOBENZAPRINE 10 MG TAB PO SCH ×3 (08:07→21:32)
[2020-06-09] MEDS: MORPHINE SULFATE ER 30 MG TABLET PO SCH ×2 (08:08→21:32)
[2020-06-09] MEDS: LACTULOSE 20 GM/30 ML CUP PO SCH ×2 (08:09→21:34)
[2020-06-09] MEDS: PANTOPRAZOLE 40 MG/10 ML VIAL IVP SCH ×2 (08:09→21:32)
[2020-06-09] MEDS: buPROPion 100 MG TAB PO SCH ×2 (08:09→21:34)
[2020-06-09 08:36] LABS: ALT 46 U/L (4-34); AST 81 U/L (14-36); African American GFR (CKD) >90 (>60 ml/min/1.73 sqM); Albumin 2.7 g/dL (3.5-5.0); Alkaline Phosphatase 89 U/L (38-126); Anion Gap 2 mmol/L; Blood Urea Nitrogen <2 mg/dL (7-17); Calcium 7.7 mg/dL (8.4-10.2); Carbon Dioxide 22 mmol/L (22-30); Chloride 117 mmol/L (98-107); Glucose 99 mg/dL (74-99); Magnesium 1.6 mg/dL (1.6-2.3); Non-African American GFR(CKD) >90 (>60 ml/min/1.73 sqM); Potassium 3.5 mmol/L (3.5-5.1); Sodium 141 mmol/L (137-145); Total Bilirubin 1.8 mg/dL (0.2-1.3); Total Protein 5.6 g/dL (6.3-8.2)
--- NOTE | 2020-06-09 08:59 | XR ---
EXAMINATION TYPE: XR chest 1V DATE OF EXAM: 06/09/2020 COMPARISON: 11/22/2016 HISTORY: Cough TECHNIQUE: Single frontal view of the chest is obtained. FINDINGS: Heart is prominent there is mild central interstitial prominence without evidence of defin ite consolidation or pleural effusion. No pneumothorax. IMPRESSION: 1. Cardiomegaly correlate for mild central venous congestion or interstitial pneumonitis.
[2020-06-09 09:25] LABS: Anisocytosis Slight; Basophils # (A) 0.1 k/uL (0-0.2); Basophils % (A) 1 %; Eosinophils # (A) 0.4 k/uL (0-0.7); Eosinophils % (A) 5 %; HCT 26.1 % (34.0-46.0); HGB 8.9 gm/dL (11.4-16.0); Lymphocytes # (A) 1.6 k/uL (1.0-4.8); Lymphocytes % (A) 23 %; MCH 32.4 pg (25.0-35.0); MCHC 34.3 g/dL (31.0-37.0); MCV 94.6 fL (80.0-100.0); Macrocytosis Slight; Mean Platelet Volume 8.7; Monocytes # (A) 0.5 k/uL (0-1.0); Monocytes % (A) 7 %; Neutrophils # (A) 4.3 k/uL (1.3-7.7); Neutrophils % (A) 62 %; Platelet Count 231 k/uL (150-450); Poikilocytosis Moderate; RBC 2.76 m/uL (3.80-5.40); RDW 18.8 % (11.5-15.5)
[2020-06-09] MEDS: POTASSIUM CHLORIDE ER 20 MEQ TAB.ER PO SCH ×2 (11:34→15:08)
[2020-06-09] MEDS: MAGNESIUM SULFATE-D5W PMX 1 GM in DEXTROSE/WATER 1 100ML.BAG IVPB SCH ×2 (11:34→15:08)
--- NOTE | 2020-06-09 14:00 | P.PN ---
Subjective Progress Note Date: 06/09/20 Principal diagnosis: Upper GI bleed The 42-year-old female who presented to the hospital with complaints of hematemesis and melonotic stools. She had a previous history of a duodenal ulcer in 2013. She is status post upper endoscopy this admission which showed an active bleeding ulcer in the duodenal sweep, endoclipped 3 and treated with cold probe ablation with epinephrine. The patient also has a history of metabolic encephalopathy, she had not been taking lactulose at home. She was noted to have elevated ammonia level on admission. Her ammonia level has been trending down. Today's ammonia level is 59. She is able to follow commands. He states her pain in her abdomen is improved. She a reported large bowel movement through the night. She denies any nausea or vomiting. He is on a clear liquid diet. She is being followed by surgery as well. Objective - Vital Signs Vital signs: Vital Signs Temp 98.5 F 06/09/20 08:00 Pulse 108 H 06/09/20 08:00 Resp 17 06/09/20 08:00 BP 103/64 06/09/20 08:00 Pulse Ox 99 06/09/20 08:00 Intake & Output 06/08/20 06/09/20 06/09/20 18:59 06:59 18:59 Intake Total 290 960 Output Total 851 4901 1201 Balance -561 -3941 -1201 Weight 130.7 kg Intake: Oral 290 960 Output: Urine 850 4900 1200 Stool 1 1 1 Other: Voiding Method Indwelling Catheter Indwelling Catheter Indwelling Catheter - Exam General appearance: The patient is alert, oriented, in no acute distress. Morbidly obese. HET: Head is normocephalic and atraumatic. Conjunctiva pink. Sclera anicteric. Neck: Supple without lymphadenopathy. Abdomen: Soft, morbidly obese, mild upper quadrant and epigastric region tenderness, nondistended with bowel sounds. No guarding or rigidity. Extremities: Normal skin color and turgor. No pedal edema Neurological: No focal deficits. Alert and oriented 3. - Labs CBC & Chem 7: 06/09/20 07:33 06/09/20 07:33 Labs: Abnormal Lab Results - Last 24 Hours (Table) 06/08/20 06/08/20 06/08/20 Range/Units 09:55 09:55 09:55 RBC 2.64 L (3.80-5.40) m/uL Hgb 8.2 L (11.4-16.0) gm/dL Hct 24.3 L (34.0-46.0) % RDW 18.3 H (11.5-15.5) % Potassium 2.9 L (3.5-5.1) mmol/L Chloride 117 H (98-107) mmol/L Carbon Dioxide 20 L (22-30) mmol/L BUN <2 L (7-17) mg/dL Creatinine 0.48 L (0.52-1.04) mg/dL Glucose 105 H (74-99) mg/dL Calcium 8.2 L (8.4-10.2) mg/dL Magnesium 1.5 L (1.6-2.3) mg/dL Total Bilirubin (0.2-1.3) mg/dL AST (14-36) U/L ALT (4-34) U/L Ammonia 99 H (<30) umol/L Total Protein (6.3-8.2) g/dL Albumin (3.5-5.0) g/dL 06/08/20 06/09/20 06/09/20 Range/Units 15:55 07:33 07:33 RBC 2.76 L (3.80-5.40) m/uL Hgb 8.9 L (11.4-16.0) gm/dL Hct 26.1 L (34.0-46.0) % RDW 18.8 H (11.5-15.5) % Potassium 3.1 L (3.5-5.1) mmol/L Chloride 117 H (98-107) mmol/L Carbon Dioxide (22-30) mmol/L BUN <2 L (7-17) mg/dL Creatinine 0.45 L (0.52-1.04) mg/dL Glucose (74-99) mg/dL Calcium 7.7 L (8.4-10.2) mg/dL Magnesium (1.6-2.3) mg/dL Total Bilirubin 1.8 H (0.2-1.3) mg/dL AST 81 H (14-36) U/L ALT 46 H (4-34) U/L Ammonia (<30) umol/L Total Protein 5.6 L (6.3-8.2) g/dL Albumin 2.7 L (3.5-5.0) g/dL 06/09/20 Range/Units 08:15 RBC (3.80-5.40) m/uL Hgb (11.4-16.0) gm/dL Hct (34.0-46.0) % RDW (11.5-15.5) % Potassium (3.5-5.1) mmol/L Chloride (98-107) mmol/L Carbon Dioxide (22-30) mmol/L BUN (7-17) mg/dL Creatinine (0.52-1.04) mg/dL Glucose (74-99) mg/dL Calcium (8.4-10.2) mg/dL Magnesium (1.6-2.3) mg/dL Total Bilirubin (0.2-1.3) mg/dL AST (14-36) U/L ALT (4-34) U/L Ammonia 59 H (<30) umol/L Total Protein (6.3-8.2) g/dL Albumin (3.5-5.0) g/dL Assessment and Plan (1) Anemia associated with acute blood loss Narrative/Plan: This is a 50-year-old female with multiple medical comorbidities including prior history of duodenal ulcer 2014 presented to the hospital with complaints of hematemesis and melena. Found to have an acute fall in her hemoglobin. EGD was performed with findings of bleeding duodenal ulcer treated with epinephr ine injection, gold probe ablation and Endo clip placement 3. Hemoglobin today 8.9, no active bleeding noted. She is status post 2 units of PRBC this admission. Current Visit: Yes Status: Acute Code(s): D62 - ACUTE POSTHEMORRHAGIC ANEMIA SNOMED Code(s): 448686376 (2) Acute upper GI hemorrhage Current Visit: Yes Status: Acute Code(s): K92.2 - GASTROINTESTINAL HEMORRHAGE, UNSPECIFIED SNOMED Code(s): 46123290 (3) Duodenal ulcer Current Visit: Yes Status: Acute Code(s): K26.9 - DUODENAL ULCER, UNSP ACUTE OR CHRONIC, W/O HEMOR OR PERF SNOMED Code(s): 63212927 (4) Hematemesis/vomiting blood Current Visit: Yes Status: Acute Code(s): K92.0 - HEMATEMESIS SNOMED Code(s): 3641585 (5) Melena Current Visit: Yes Status: Acute Code(s): K92.1 - MELENA SNOMED Code(s): 8258741 Plan: 1. Supportive care 2. Advance to low fiber diet 3. IV Protonix therapy 4. Continue to monitor hemoglobin and hematocrit and transfuse as needed 5. She is status post 2 units of PRBC transfusion 6. Avoid NSAID use 7. Surgical services is following patient 8. Increase lactulose to 30 mg twice a day, titrate to have 3-4 bowel movements 9. Repeat ammonia level 10. We will continue to follow Dr. Kushal Rodgers I agree with the dictator's note, documented as a scribe by Anne Patricio.
--- NOTE | 2020-06-09 14:11 | P.PN ---
Subjective Progress Note Date: 06/09/20 CHIEF COMPLAINT: GI bleed HISTORY OF PRESENT ILLNESS: Patient is being followed for GI bleed. She has a duodenal ulcer and is status post epinephrine injection, gold probe ablation and Endo Clip placement 3 by GI service. Patient had a large bowel movement yesterday and also during the evening that had no evidence of blood or black stool. She denies any abdominal pain. Patient is more confused today. She denies any nausea or vomiting. GI service has advanced her to a full liquid diet. Afebrile WBC 7.0 hemoglobin 8.9 potassium 3.5 magnesium 1.8 PHYSICAL EXAM: VITAL SIGNS: Reviewed. GENERAL: Well-developed in no acute distress. HEENT: No sclera icterus. Extraocular movements grossly intact. Moist buccal mucosa. Head is atraumatic, normocephalic. ABDOMEN: Soft. Obese. Nondistended. Nontender. NEUROLOGIC: Patient confused. She is lying in bed with only her brief on. ASSESSMENT: 1. Acute upper GI bleed secondary to bleeding duodenal ulcer 2. Acute blood loss anemia secondary to GI bleed 3. Duodenal ulcer status post epinephrine injection, ablation and clip placement by GI service 4. Hypokalemia and hypomagnesemia being replaced PLAN: -Continue to observe patient closely -Okay to advance to full liquids -Continue to monitor hemoglobin -Continue IV Protonix -Continue to monitor for signs and symptoms of bleeding Physician Selector Packer note has been reviewed by physician. Signing provider agrees with the documented findings, assessment, and plan of care. Objective - Vital Signs Vital signs: Vital Signs Temp 98.5 F 06/09/20 08:00 Pulse 108 H 06/09/20 08:00 Resp 17 06/09/20 08:00 BP 103/64 06/09/20 08:00 Pulse Ox 99 06/09/20 08:00 Intake & Output 06/08/20 06/09/20 06/09/20 18:59 06:59 18:59 Intake Total 290 960 Output Total 851 4901 1201 Balance -939 -2103 -1206 Weight 130.7 kg Intake: Oral 290 960 Output: Urine 850 4900 1200 Stool 1 1 1 Other: Voiding Method Indwelling Catheter Indwelling Catheter Indwelling Catheter - Labs CBC & Chem 7: 06/09/20 07:33 06/09/20 07:33 Labs: Abnormal Lab Results - Last 24 Hours (Table) 06/08/20 06/09/20 06/09/20 Range/Units 15:55 07:33 07:33 RBC 2.76 L (3.80-5.40) m/uL Hgb 8.9 L (11.4-16.0) gm/dL Hct 26.1 L (34.0-46.0) % RDW 18.8 H (11.5-15.5) % Potassium 3.1 L (3.5-5.1) mmol/L Chloride 117 H (98-107) mmol/L BUN <2 L (7-17) mg/dL Creatinine 0.45 L (0.52-1.04) mg/dL Calcium 7.7 L (8.4-10.2) mg/dL Total Bilirubin 1.8 H (0.2-1.3) mg/dL AST 81 H (14-36) U/L ALT 46 H (4-34) U/L Ammonia (<30) umol/L Total Protein 5.6 L (6.3-8.2) g/dL Albumin 2.7 L (3.5-5.0) g/dL 06/09/20 Range/Units 08:15 RBC (3.80-5.40) m/uL Hgb (11.4-16.0) gm/dL Hct (34.0-46.0) % RDW (11.5-15.5) % Potassium (3.5-5.1) mmol/L Chloride (98-107) mmol/L BUN (7-17) mg/dL Creatinine (0.52-1.04) mg/dL Calcium (8.4-10.2) mg/dL Total Bilirubin (0.2-1.3) mg/dL AST (14-36) U/L ALT (4-34) U/L Ammonia 59 H (<30) umol/L Total Protein (6.3-8.2) g/dL Albumin (3.5-5.0) g/dL
--- NOTE | 2020-06-09 16:08 | P.PN ---
Subjective Progress Note Date: 06/09/20 This is a pleasant 50 years old female with past medical history of asthma and COPD, pickwickian syndrome, schwannoma of the brachioplexus, status post surgical resection, located by left wrist a drop and chronic contractures and muscular atrophy of the left upper extremity. Complex regional pain syndrome. Reflex sympathetic dystrophy. Pancreatitis. Morbid obesity. History of hemorrhagic cystitis. History of GI bleed. Patient presents because of black tarry stool for more than 24 hours and today she was started vomiting of blood, air in the emergency room she had 3 large bowel movement and one small one, all of them that black stool. Also earlier she vomited one time and there was bloody discharge. She denies headache or chest pain however she has epigastric abdominal pain for 2 weeks as she states. She states she fell yesterday and passed out and hit her head but she denies chest pain or dyspnea. She denies drinking alcohol, she is taking pain medication but she could not number what medication it is. She is looks a little bit confused and poor historian, she can give some information but not very details Labs showing drop of hemoglobin from 10.4, 9.1 and 7.9. Risks of CBC is unremarkable. INR is normal. Elevated lactic acid came back to normal. Ammonia is elevated at 40, troponin is slightly elevated at 0.1. Potassium 3.2, wrist BMP is unremarkable, Troponin is elevated at 0.1 . UA is suspicious of infection. Occult blood in stool is positive Patient has tachycardia with heart rate up around 07/25/1942, mostly sinus tachycardia, blood pressure is stable, she has low-grade temperature of 100.6 06/05/2020 Patient is more awake and stable today, her ammonia level back to normal however she did not have bowel movement while she is on lactulose She still complaining from epigastric pain in the view of her GI bleed she underwent EGD which found large duodenal ulcer which is actively bleeding and it was treated with an Endo Clip placement by GI team, surgery team fashion buying internship for standby but no need for any intervention for now. She is also on ceftriaxone em pirically, I'll likely she has UTI most likely is asymptomatic bacteriuria as patient with no urinary symptoms and her urine culture is negative Patient can be moved out of the ICU today 06/06/2020 patient is seen and selected to need. She is fully awake and oriented, she states that she has frequent bowel movement about ten between yesterday and today, we will lower her lactulose to once daily. Her ammonia level is a slightly elevated however her mentation is significantly improved EGD found large duodenal ulcer with active bleeding status post Endo Clip placement, continue with Protonix IV twice daily and avoid anticoagulation, patient was counseled to avoid NSAIDs like Motrin and Mobic and she agrees. Vityodit looks stable and her tachycardia is improving down to 111, so we'll keep her on IV fluid at 1 50 mL/h doses is improving down to normal today. BMP is unremarkable. Ammonia is 57 continue with ceftriaxone, Protonix and normal saline 06/07: Patient states that she had a bowel movement this morning which was black. Her hemoglobin is 6.8 and she has been ordered for second unit of packed RBCs for a total of 2 units during this hospitalization. She is continued on Protonix twice daily IV. 06/08: Repeat hemoglobin is 8.2 and she is status post a total of 2 units packed RBCs during this admission. Potassium is 2.9 and will be replaced with 120 mEq of potassium and recheck potassium this afternoon. Magnesium 1.5 and will be replaced with 2 g of magnesium. BUN less than 2 and creatinine 0.48. monitoring manager is a sinus tachycardia. Patient is afebrile, heart rate 122, blood pressure 123/66, pulse ox 99% on room air. IV is subcutaneous and midline was ordered. 06/09: Patient noted to have increased edema, Lasix 40 mg IV push given and patient has diuresed well. Chest x-ray reveals cardiomegaly, correlate for mild central venous congestion or interstitial pneumonitis. Hemoglobin continues to improve today at 8.9. BUN less than 2 and creatinine 0.45. Total bilirubin 1.8, AST 81, ALT 46 and alkaline phosphatase 89. Ammonia level at 59. She has been afebrile, heart rate 103, blood pressure 103/64, pulse ox 99% on 2 L nasal cannula. Discharge plan is for medical [place] [place] tomorrow Objective - Vital Signs Vital signs: Vital Signs Temp 98.5 F 06/09/20 08:00 Pulse 108 H 06/09/20 08:00 Resp 17 06/09/20 08:00 BP 103/64 06/09/20 08:00 Pulse Ox 99 06/09/20 08:00 Intake & Output 06/08/20 06/09/20 06/09/20 18:59 06:59 18:59 Intake Total 290 960 210 Output Total 851 4901 1201 Balance -561 -0370 -991 Weight 130.7 kg Intake: Oral 290 960 210 Output: Urine 850 4900 1200 Stool 1 1 1 Other: Voiding Method Indwelling Catheter Indwelling Catheter Indwelling Catheter # Bowel Movements 1 - Exam Review of Systems CONSTITUTIONAL: No fever, no malaise, no fatigue. HEENT: No recent visual problems or hearing problems. Denied any sore throat. CARDIOVASCULAR: No orthopnea, PND, no palpitations, no syncope. PULMONARY: No shortness of breath, no cough, no hemoptysis. GASTROINTESTINAL: No diarrhea, no nausea, no vomiting, no abdominal pain. Normoactive bowel sounds. NEUROLOGICAL: No headaches, no weakness, no numbness. Physical examination - Constitutional General appearance: mild distress, morbidly obese - EENT Eyes: anicteric sclerae, EOMI, PERRLA, no ptosis, no scleral icterus, normal appearance ENT: hearing grossly normal, NA/AT, normal oropharynx, no thrush Ears: bilateral: normal - Neck Neck: no lymphadenopathy, normal ROM, no stridor, no thyromegaly Carotids: bilateral: upstroke normal Thyroid: bilateral: normal size - Respiratory Respiratory: bilateral: diminished, negative: dullness, rales, rhonchi, wheezing, prolonged expiration, prolonged inspiration - Cardiovascular Rhythm: regular Heart sounds: normal: S1, S2 Abnormal Heart Sounds: no systolic murmur, no diastolic murmur, no rub, no S3 Gallop, no S4 Gallop, no click Trace bilateral lower extremity edema - Gastrointestinal General gastrointestinal: normal bowel sounds, soft, no tenderness, no umbilical hernia, no ventral hernia - Integumentary Integumentary: normal, normal turgor - Neurologic Neurologic: CNII-XII intact - Musculoskeletal Musculoskeletal: generalized weakness, strength equal bilaterally, right sided weakness - Psychiatric Psychiatric: A&O x's 3, appropriate affect - Labs CBC & Chem 7: 06/09/20 07:33 06/09/20 07:33 Labs: Abnormal Lab Results - Last 24 Hours (Table) 06/08/20 06/09/20 06/09/20 Range/Units 15:55 07:33 07:33 RBC 2.76 L (3.80-5.40) m/uL Hgb 8.9 L (11.4-16.0) gm/dL Hct 26.1 L (34.0-46.0) % RDW 18.8 H (11.5-15.5) % Potassium 3.1 L (3.5-5.1) mmol/L Chloride 117 H (98-107) mmol/L BUN <2 L (7-17) mg/dL Creatinine 0.45 L (0.52-1.04) mg/dL Calcium 7.7 L (8.4-10.2) mg/dL Total Bilirubin 1.8 H (0.2-1.3) mg/dL AST 81 H (14-36) U/L ALT 46 H (4-34) U/L Ammonia (<30) umol/L Total Protein 5.6 L (6.3-8.2) g/dL Albumin 2.7 L (3.5-5.0) g/dL 06/09/20 Range/Units 08:15 RBC (3.80-5.40) m/uL Hgb (11.4-16.0) gm/dL Hct (34.0-46.0) % RDW (11.5-15.5) % Potassium (3.5-5.1) mmol/L Chloride (98-107) mmol/L BUN (7-17) mg/dL Creatinine (0.52-1.04) mg/dL Calcium (8.4-10.2) mg/dL Total Bilirubin (0.2-1.3) mg/dL AST (14-36) U/L ALT (4-34) U/L Ammonia 59 H (<30) umol/L Total Protein (6.3-8.2) g/dL Albumin (3.5-5.0) g/dL Assessment and Plan Assessment: 1. Acute upper GI bleed secondary to large duodenal ulcer status post Endo Clip placement. GI consult appreciated. General surgery consult appreciated. Continue Protonix 40 mg IV twice daily. Midline ordered. Avoid all NSAIDs. 2. Acute blood loss anemia. Patient is status post 2 units of packed RBCs. Repeat CBC in the morning. Continue ferrous sulfate twice daily. 3. Metabolic encephalopathy, resolved. Continue lactulose 30 g daily. 4. Elevated troponin, acute coronary syndrome ruled out. Echocardiogram reveals EF of 55%. 5. Morbid obesity with BMI 47 with WEI and OHS will continue with CPAP. 6. History of Schwanoma of the left brachial plexus with resultant chronic regional pain syndrome (CRPS). Continue MS Contin 60 mg oral scheduled every 12 hours and 30 mg oral every 12 hours as needed for breakthrough pain. 7. History of Fibromyalgia. Continue current pain management. Continue Flexeril 10 mg orally 3 times every day. 8. Chronic anemia. Continue ferrous sulfate twice daily. 9. Asymptomatic bacteriuria. Discontinue Rocephin. 10. Recurrent depression and generalized anxiety disorder. Continue bupropion 100 mg po bid, Remeron 15 mg at bedtime and Xanax 0.25 mg twice daily as needed. 11. Hypothyroidism. Continue levothyroxine 50 g daily. 12. Supraventricular tachycardia. Continue Lopressor 25 mg twice daily. 13. 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 14. Chronic pain syndrome.will continue with current pain management. 15. DVT prophylaxis.SCD and EMILIANO sowe. 16. GI prophylaxis.will continue with protonix 40 mg IV twice daily. 17. Fluid overload secondary to IV fluids running at 130 mL, IV fluids discontinued, IV Lasix 40 mg 1. Full code. [facility] [place] [facility]
[2020-06-09] MEDS: MIRTAZAPINE 15 MG TAB PO SCH (21:32)
[2020-06-10 04:00] VITALS: RESP 18; TEMP 98.1
[2020-06-10] MEDS: LEVOTHYROXINE 50 MCG TAB PO SCH (06:28)
[2020-06-10] MEDS: FERROUS SULFATE 325 MG TAB PO SCH (06:28)
[2020-06-10 08:09] LABS: Anisocytosis Slight; HCT 24.2 % (34.0-46.0); HGB 8.1 gm/dL (11.4-16.0); Hypochromasia Slight; MCH 32.2 pg (25.0-35.0); MCHC 33.6 g/dL (31.0-37.0); MCV 95.9 fL (80.0-100.0); Macrocytosis Slight; Mean Platelet Volume 8.3; Platelet Count 213 k/uL (150-450); Poikilocytosis Marked; RBC 2.52 m/uL (3.80-5.40); RDW 18.9 % (11.5-15.5); WBC 6.4 k/uL (3.8-10.6)
[2020-06-10 08:15] LABS: ALT 37 U/L (4-34); AST 52 U/L (14-36); African American GFR (CKD) >90 (>60 ml/min/1.73 sqM); Albumin 2.3 g/dL (3.5-5.0); Alkaline Phosphatase 76 U/L (38-126); Anion Gap 1 mmol/L; Blood Urea Nitrogen <2 mg/dL (7-17); Calcium 7.4 mg/dL (8.4-10.2); Carbon Dioxide 22 mmol/L (22-30); Chloride 115 mmol/L (98-107); Glucose 93 mg/dL (74-99); Non-African American GFR(CKD) >90 (>60 ml/min/1.73 sqM); Potassium 3.2 mmol/L (3.5-5.1); Sodium 138 mmol/L (137-145); Total Bilirubin 1.3 mg/dL (0.2-1.3); Total Protein 5.1 g/dL (6.3-8.2)
[2020-06-10] MEDS: LACTULOSE 20 GM/30 ML CUP PO SCH (08:33)
[2020-06-10] MEDS: CYCLOBENZAPRINE 10 MG TAB PO SCH (08:33)
[2020-06-10] MEDS: METOPROLOL TARTRATE 12.5 MG TAB PO SCH (08:33)
[2020-06-10] MEDS: MORPHINE SULFATE ER 30 MG TABLET PO SCH (08:33)
[2020-06-10] MEDS: PANTOPRAZOLE 40 MG/10 ML VIAL IVP SCH (08:33)
[2020-06-10] MEDS: ALPRAZolam 0.25 MG TAB PO PRN (08:33)
[2020-06-10] MEDS: buPROPion 100 MG TAB PO SCH (08:34)
[2020-06-10] MEDS: TRIMETHOBENZAMIDE 300 MG CAP PO SCH (08:34)
[2020-06-10 11:17] VITALS: BP 116/67; PULSE 118
--- NOTE | 2020-06-10 11:26 | P.PN ---
Subjective Progress Note Date: 06/10/20 CHIEF COMPLAINT: GI bleed HISTORY OF PRESENT ILLNESS: Patient is being followed for GI bleed. She has a duodenal ulcer and is status post epinephrine injection, gold probe ablation and Endo Clip placement 3 by GI service. No black stools reported by nursing staff. [facility] Patient is on a low fiber diet. Does report some abdominal pain. She denies any nausea or vomiting. Afebrile. WBC 6.4 hemoglobin 8.1 PHYSICAL EXAM: VITAL SIGNS: Reviewed. GENERAL: Well-developed in no acute distress. HEENT: No sclera icterus. Extraocular movements grossly intact. Moist buccal mucosa. Head is atraumatic, normocephalic. ABDOMEN: Soft. Obese. Nondistended. Nontender. NEUROLOGIC: Patient is less confused today ASSESSMENT: 1. Acute upper GI bleed secondary to bleeding duodenal ulcer 2. Acute blood loss anemia secondary to GI bleed 3. Duodenal ulcer status post epinephrine injection, ablation and clip placement by GI service 4. Hypokalemia and hypomagnesemia being replaced PLAN: -Continue low fiber diet -Continue Protonix -Patient can be discharge from surgical standpoint -Patient follow up with Dr. Cardoza in 1 week Physician Senior Paralegal note has been reviewed by physician. Signing provider agrees with the documented findings, assessment, and plan of care. Objective - Vital Signs Vital signs: Vital Signs Temp 98.1 F 06/10/20 03:56 Pulse 118 H 06/10/20 08:00 Resp 18 06/10/20 08:00 BP 116/67 06/10/20 08:00 Pulse Ox 100 06/10/20 08:00 Intake & Output 06/09/20 06/10/20 06/10/20 18:59 06:59 18:59 Intake Total 210 240 236 Output Total 2101 875 1 Balance -1891 -635 235 Intake: Oral 210 240 236 Output: Urine 2100 875 Stool 1 1 Other: Voiding Method Indwelling Catheter Indwelling Catheter Indwelling Catheter # Bowel Movements 1 0 - Labs CBC & Chem 7: 06/10/20 07:23 06/10/20 07:23 Labs: Abnormal Lab Results - Last 24 Hours (Table) 06/10/20 06/10/20 06/10/20 Range/Units 07:23 07:23 07:23 RBC 2.52 L (3.80-5.40) m/uL Hgb 8.1 L (11.4-16.0) gm/dL Hct 24.2 L (34.0-46.0) % RDW 18.9 H (11.5-15.5) % Potassium 3.2 L (3.5-5.1) mmol/L Chloride 115 H (98-107) mmol/L BUN <2 L (7-17) mg/dL Creatinine 0.41 L (0.52-1.04) mg/dL Calcium 7.4 L (8.4-10.2) mg/dL AST 52 H (14-36) U/L ALT 37 H (4-34) U/L Ammonia 99 H (<30) umol/L Total Protein 5.1 L (6.3-8.2) g/dL Albumin 2.3 L (3.5-5.0) g/dL
[2020-06-10] MEDS ORDERED: POTASSIUM CHLORIDE ER 20 MEQ TAB.ER PO SCH (12:00)
[2020-06-10] MEDS ORDERED: METOPROLOL TARTRATE 12.5 MG TAB PO STA (12:03)
--- NOTE | 2020-06-10 12:04 | P.DS ---
Providers Date of admission: 06/04/20 11:15 Expected date of discharge: 06/10/20 Attending physician: Erma Nieto Consults: 06/04/20 11:15 Consult Physician ONCE Consulting Provider: Yusuf Owusu Consult Reason/Comments: acute upper gi bleed Do you want consulting provider notified?: Already Contacted Consult Physician Stat Consulting Provider: Sanjana Fuentes Consult Reason/Comments: gi bleed Do you want consulting provider notified?: Already Contacted 06/05/20 09:58 Consult Physician Routine Consulting Provider: Cesar Cardoza Consult Reason/Comments: Duodenal ulcer Do you want consulting provider notified?: Yes Primary care physician: Erma Nieto [facility] Course: This is a pleasant 50 years old female with past medical history of asthma and COPD, pickwickian syndrome, schwannoma of the brachioplexus, status post surgical resection, located by left wrist a drop and chronic contractures and muscular atrophy of the left upper extremity. Complex regional pain syndrome. Reflex sympathetic dystrophy. Pancreatitis. Morbid obesity. History of hemorrhagic cystitis. History of GI bleed. Patient presents because of black tarry stool for more than 24 hours and today she was started vomiting of blood, air in the emergency room she had 3 large bowel movement and one small one, all of them that black stool. Also earlier she vomited one time and there was bloody discharge. She denies headache or chest pain however she has epigastric abdominal pain for 2 weeks as she states. She states she fell yesterday and passed out and hit her head but she denies chest pain or dyspnea. She denies drinking alcohol, she is taking pain medication but she could not number what medication it is. She is looks a little bit confused and poor historian, she can give some information but not very details Labs showing drop of hemoglobin from 10.4, 9.1 and 7.9. Risks of CBC is unremarkable. INR is normal. Elevated lactic acid came back to normal. Ammonia is elevated at 40, troponin is slightly elevated at 0.1. Potassium 3.2, wrist BMP is unremarkable, Troponin is elevated at 0.1 . UA is suspicious of infection. 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 She is also on ceftriaxone empirically, I'll likely she has UTI most likely is asymptomatic bacteriuria as patient with no urinary symptoms and her urine culture is negative Patient can be moved out of the ICU today 06/06/2020 patient is seen and selected to need. She is fully awake and oriented, she states that she has frequent bowel movement about ten between yesterday and today, we will lower her lactulose to once daily. Her ammonia level is a slightly elevated however her mentation is significantly improved EGD found large duodenal ulcer with active bleeding status post Endo Clip placement, continue with Protonix IV twice daily and avoid anticoagulation, patient was counseled to avoid NSAIDs like Motrin and Mobic and she agrees. Vitas looks stable and her tachycardia is improving down to 111, so we'll keep her on IV fluid at 1 50 mL/h doses is improving down to normal today. BMP is unremarkable. Ammonia is 57 continue with ceftriaxone, Protonix and normal saline 06/07: Patient states that she had a bowel movement this morning which was black. Her hemoglobin is 6.8 and she has been ordered for second unit of packed RBCs for a total of 2 units during this hospitalization. She is continued on Protonix twice daily IV. 06/08: Repeat hemoglobin is 8.2 and she is status post a total of 2 units packed RBCs during this admission. Potassium is 2.9 and will be replaced with 120 mEq of potassium and recheck potassium this afternoon. Magnesium 1.5 and will be replaced with 2 g of magnesium. BUN less than 2 and creatinine 0.48. 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 Patient is afebrile, heart rate 122, blood pressure 123/66, pulse ox 99% on room air. IV is subcutaneous and midline was ordered. 06/09: Patient noted to have increased edema, Lasix 40 mg IV push given and patient has diuresed well. Chest x-ray reveals cardiomegaly, correlate for mild central venous congestion or interstitial pneumonitis. Hemoglobin continues to improve today at 8.9. BUN less than 2 and creatinine 0.45. Total bilirubin 1.8, AST 81, ALT 46 and alkaline phosphatase 89. Ammonia level at 59. She has been afebrile, heart rate 103, blood pressure 103/64, pulse ox 99% on 2 L nasal cannula. Discharge plan is for medical [facility] tomorrow 06/10: Repeat hemoglobin is 8.1. Potassium 3.2 and will be replaced. BUN less than 2 and creatinine 0.41. Patient is currently on a low fiber diet and tolerating. She has mild generalized abdominal pain. No nausea or vomiting. She has been afebrile, heart rate 112, blood pressure 116/67, pulse ox 100% on 2 L nasal cannula. Patient will be discharged to [facility] today in stable condition. Discharge diagnoses: 1. Acute upper GI bleed secondary to large duodenal ulcer status post Endo Clip placement. 2. Acute blood loss anemia. 3. Metabolic encephalopathy, resolved. 4. Elevated troponin, acute coronary syndrome ruled out. 5. Morbid obesity with BMI 47 with WEI and OHS will continue with CPAP. 6. History of Schwanoma of the left brachial plexus with resultant chronic regional pain syndrome (CRPS). 7. History of Fibromyalgia. 8. Chronic anemia. 9. Asymptomatic bacteriuria. 10. Recurrent depression and generalized anxiety disorder. 11. Hypothyroidism. 12. Supraventricular tachycardia. 13. 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 14. Chronic pain syndrome. 15. Fluid overload secondary to IV fluids. . Discharge plan: [facility] Impression and plan of care have been directed as dictated by the signing physician. Elaina Latif nurse practitioner acting as scribe for signing physician. Patient Condition at Discharge: Serious Plan - Discharge Summary Discharge Rx Participant: No New Discharge Prescriptions: New Lactulose [Cephulac] 30 gm PO TID ml Ferrous Sulfate [Iron (65 MG Elemental)] 325 mg PO BID-W/MEALS tab Potassium Chloride ER [K-Dur 20] 20 meq PO DAILY tab.er.prt Pantoprazole Sodium [Protonix] 40 mg PO AC-BID #60 tablet.dr Continue Cyclobenzaprine [Flexeril] 10 mg PO TID #90 tab Metoprolol Tartrate [Lopressor] 25 mg PO BID #60 tab Mirtazapine [Remeron] 15 mg PO HS #30 tablet buPROPion [Wellbutrin] 100 mg PO BID #60 tab Levothyroxine Sodium [Synthroid] 50 mcg PO DAILY Losartan Potassium 100 mg PO DAILY #30 tablet Morphine Sulfate ER [Ms Contin] 60 mg PO Q12HR #6 tab Morphine Sulfate ER [Ms Contin] 30 mg PO Q12HR #6 tab ALPRAZolam [Xanax] 0.25 mg PO BID PRN #6 tablet PRN Reason: Anxiety Discharge Medication List Cyclobenzaprine [Flexeril] 10 mg PO TID #90 tab 07/28/16 [Rx] Metoprolol Tartrate [Lopressor] 25 mg PO BID #60 tab 07/28/16 [Rx] Mirtazapine [Remeron] 15 mg PO HS #30 tablet 07/28/16 [Rx] buPROPion [Wellbutrin] 100 mg PO BID #60 tab 07/28/16 [Rx] Levothyroxine Sodium [Synthroid] 50 mcg PO DAILY 06/04/20 [History] ALPRAZolam [Xanax] 0.25 mg PO BID PRN #6 tablet 06/10/20 [Rx] Ferrous Sulfate [Iron (65 MG Elemental)] 325 mg PO BID-W/MEALS tab 06/10/20 [Rx] Lactulose [Cephulac] 30 gm PO TID ml 06/10/20 [Rx] Losartan Potassium 100 mg PO DAILY #30 tablet 06/10/20 [Rx] Morphine Sulfate ER [Ms Contin] 30 mg PO Q12HR #6 tab 06/10/20 [Rx] Morphine Sulfate ER [Ms Contin] 60 mg PO Q12HR #6 tab 06/10/20 [Rx] Pantoprazole Sodium [Protonix] 40 mg PO AC-BID #60 tablet.dr 06/10/20 [Rx] Potassium Chloride ER [K-Dur 20] 20 meq PO DAILY tab.er.prt 06/10/20 [Rx] Follow up Appointment(s)/Referral(s): Yusuf Owusu MD [STAFF PHYSICIAN] - 1 Week (1-2 weeks) Cesar Cardoza MD [STAFF PHYSICIAN] - 1 Week Erma Nieto MD [Primary Care Provider] - 1 Week Discharge Disposition: TRANSFER TO SNF/ECF
--- NOTE | 2020-06-10 13:02 | P.PN ---
Subjective Progress Note Date: 06/10/20 Principal diagnosis: Upper GI bleed This is a 42-year-old female who presented to the hospital with complaints of hematemesis and melonotic stools. She had a previous history of a duodenal ulcer in 2013. She is status post upper endoscopy this admission which showed an active bleeding ulcer in the duodenal sweep, endoclipped 3 and treated with cold probe ablation with epinephrine. The patient also has a history of metabolic encephalopathy, she had not been taking lactulose at home. She was noted to have elevated ammonia level on admission. Her ammonia level increased to 99 today. She only has two BM yesterday. She is alert and oriented 3, however still has confusion. She states her pain in her abdomen is improved. She is any bowel movement today. However states that she has not had any further black stools. She denies any nausea or vomiting. She is tolerating her diet. Denies any nausea or vomiting. Plan is for discharge to extended care facility today. Objective - Vital Signs Vital signs: Vital Signs Temp 98.1 F 06/10/20 03:56 Pulse 112 H 06/10/20 03:56 Resp 18 06/10/20 03:56 BP 132/62 06/10/20 03:56 Pulse Ox 94 L 06/10/20 03:56 Intake & Output 06/09/20 06/10/20 06/10/20 18:59 06:59 18:59 Intake Total 210 240 236 Output Total 2101 875 Balance -1891 -635 236 Intake: Oral 210 240 236 Output: Urine 2100 875 Stool 1 Other: Voiding Method Indwelling Catheter Indwelling Catheter # Bowel Movements 1 0 - Exam General appearance: The patient is alert, oriented, in no acute distress. Morbidly obese. HET: Head is normocephalic and atraumatic. Conjunctiva pink. Sclera anicteric. Neck: Supple without lymphadenopathy. Abdomen: Soft, morbidly obese, mild upper quadrant and epigastric region tenderness, nondistended with bowel sounds. No guarding or rigidity. Extremities: Normal skin color and turgor. No pedal edema Neurological: No focal deficits. Alert and oriented 3. - Labs CBC & Chem 7: 06/10/20 07:23 06/10/20 07:23 Labs: Abnormal Lab Results - Last 24 Hours (Table) 06/10/20 06/10/20 06/10/20 Range/Units 07:23 07:23 07:23 RBC 2.52 L (3.80-5.40) m/uL Hgb 8.1 L (11.4-16.0) gm/dL Hct 24.2 L (34.0-46.0) % RDW 18.9 H (11.5-15.5) % Potassium 3.2 L (3.5-5.1) mmol/L Chloride 115 H (98-107) mmol/L BUN <2 L (7-17) mg/dL Creatinine 0.41 L (0.52-1.04) mg/dL Calcium 7.4 L (8.4-10.2) mg/dL AST 52 H (14-36) U/L ALT 37 H (4-34) U/L Ammonia 99 H (<30) umol/L Total Protein 5.1 L (6.3-8.2) g/dL Albumin 2.3 L (3.5-5.0) g/dL Assessment and Plan (1) Anemia associated with acute blood loss Narrative/Plan: This is a 50-year-old female with multiple medical comorbidities including prior history of duodenal ulcer 2014 presented to the hospital with complaints of hematemesis and melena. Found to have an acute fall in her hemoglobin. EGD was performed with findings of bleeding duodenal ulcer treated with epinephrine injection, gold probe ablation and Endo clip placement 3. Hemoglobin today 8.9, no active bleeding noted. She is status post 2 units of PRBC this admission. His had no further signs of GI bleed. Current Visit: Yes Status: Acute Code(s): D62 - ACUTE POSTHEMORRHAGIC ANEMIA SNOMED Code(s): 465456964 (2) Acute upper GI hemorrhage Current Visit: Yes Status: Acute Code(s): K92.2 - GASTROINTESTINAL HEMORRHAGE, UNSPECIFIED SNOMED Code(s): 46062390 (3) Duodenal ulcer Current Visit: Yes Status: Acute Code(s): K26.9 - DUODENAL ULCER, UNSP AC LORAINE OR CHRONIC, W/O HEMOR OR PERF SNOMED Code(s): 07745274 (4) Hematemesis/vomiting blood Current Visit: Yes Status: Acute Code(s): K92.0 - HEMATEMESIS SNOMED Co de(s): 7816151 (5) Melena Current Visit: Yes Status: Acute Code(s): K92.1 - MELENA SNOMED Code(s): 8606390 Plan: 1. Supportive care 2. Advance to low fiber diet 3. IV Protonix therapy 4. Continue to monitor hemoglobin and hematocrit and transfuse as needed 5. She is status post 2 units of PRBC transfusion 6. Avoid NSAID use 7. Surgical services is following patient 8. Increase lactulose to 30 mg TID a day, titrate to have 3-4 bowel movements 9. Repeat ammonia level 10. Agree with discharge, will need follow-up appointment with Dr. Owusu for repeat EGD Dr. Kushal Rodgers I agree with the dictator's note, documented as a scribe by Anne Patricio.
[2020-06-10] MEDS: ACETAMINOPHEN TAB 325 MG TAB PO PRN (13:34)
[2020-06-10] MEDS ORDERED: LACTULOSE 20 GM/30 ML CUP PO SCH (16:00)
== END 2020-06-10 14:34 | DRG 377 ==
LOC: EC 07:48 → 2SICU 11:15 → 3SCARD 06-05 22:26
PROVIDERS: ADMIT Internal Medicine; ATTEND Internal Medicine
PROC: 3E0G8GC Introduction of Other Therapeutic Substance into Upper GI, Via Natural or Artificial Opening Endoscopic (ICD-10-PCS; principal; 2020-06-05 08:00)
PROC: 0W3P8ZZ Control Bleeding in Gastrointestinal Tract, Via Natural or Artificial Opening Endoscopic (ICD-10-PCS; principal; 2020-06-05 08:00)
PROC: 05HD33Z Insertion of Infusion Device into Right Cephalic Vein, Percutaneous Approach (ICD-10-PCS; 2020-06-08 13:55)
DX: K26.4 Chronic or unspecified duodenal ulcer with hemorrhage (principal); G93.41 Metabolic encephalopathy; D62 Acute posthemorrhagic anemia; E66.2 Morbid (severe) obesity with alveolar hypoventilation; F33.9 Major depressive disorder, recurrent, unspecified; G90.50 Complex regional pain syndrome I, unspecified; I24.8 Other forms of acute ischemic heart disease; I47.1 Supraventricular tachycardia; Z68.42 Body mass index [BMI] 45.0-49.9, adult; S09.90XA Unspecified injury of head, initial encounter; J44.9 Chronic obstructive pulmonary disease, unspecified; E03.9 Hypothyroidism, unspecified; E83.42 Hypomagnesemia; E87.6 Hypokalemia; E87.70 Fluid overload, unspecified; F41.1 Generalized anxiety disorder; G89.4 Chronic pain syndrome; I51.7 Cardiomegaly; M79.7 Fibromyalgia; N20.0 Calculus of kidney; M21.332 Wrist drop, left wrist; M62.50 Muscle wasting and atrophy, not elsewhere classified, unspecified site; Z79.890 Hormone replacement therapy; Z79.899 Other long term (current) drug therapy; Z87.442 Personal history of urinary calculi; Z88.6 Allergy status to analgesic agent; Z88.1 Allergy status to other antibiotic agents; Z88.0 Allergy status to penicillin; Z90.49 Acquired absence of other specified parts of digestive tract; Z87.19 Personal history of other diseases of the digestive system; Z98.890 Other specified postprocedural states; Z87.39 Personal history of other diseases of the musculoskeletal system and connective tissue; Z87.440 Personal history of urinary (tract) infections; Z86.14 Personal history of Methicillin resistant Staphylococcus aureus infection; Z86.69 Personal history of other diseases of the nervous system and sense organs; Z83.3 Family history of diabetes mellitus; Z83.6 Family history of other diseases of the respiratory system; Z84.89 Family history of other specified conditions; W19.XXXA Unspecified fall, initial encounter
CPT/HCPCS: 36410; 36415; 43243; 43255; 51702; 70450; 71045; 74177; 76937; 80048; 80053; 81001; 82140; 82272; 82746; 83540; 83550; 83605; 83690; 83735; 84132; 84145; 84484; 85025; 85027; 85610; 85730; 86850; 86900; 86901; 86920; 87086; 93005; 93306; 96361; 96365; 96366; 96372; 96375; 99291

== ENCOUNTER 2023-08-31 15:39 | Inpatient (IN) | payer MEDICARE, OTHER ==
--- NOTE | 2023-08-31 16:20 | ED ---
Abdominal Pain HPI - General Chief Complaint: Nausea/Vomiting/Diarrhea Stated Complaint: Abd Pain,Vomiting Time Seen by Provider: 08/31/23 15:53 Source: patient, family, RN notes reviewed Mode of arrival: wheelchair Limitations: no limitations - History of Present Illness Initial Comments: This is a 53-year-old female who presents to the emergency department for abdominal pain, nausea, and vomiting. Patient states that she has had left- sided abdominal pain for the last week. Additionally, this morning she threw up 1-3 times. The vomit was largely bile. She does have a history of peptic ulcers. She used to see Dr. Rodgers GI, but has not seen her in 4 years. States that the pain feels similar, but entirely the same. The pain is almost described as cramping. She has not had an issue with ulcers in a couple of years and no longer takes Protonix. She has not been on Protonix for about a year. Denies any changes in bowel/bladder habits. Denies any blood in her vomit or coffee- ground emesis. Also denies any blood in her stool or dark/tarry stools. MD Complaint: abdominal pain - Related Data Home Medications Medication Instructions Recorded Confirmed Levothyroxine Sodium [Synthroid] 50 mcg PO DAILY 06/04/20 08/31/23 ALPRAZolam [Xanax] 0.25 mg PO BID PRN 08/31/23 08/31/23 Cholecalciferol [Vitamin D3 (25 50 mcg PO DAILY 08/31/23 08/31/23 Mcg = 1000 Iu)] Lactulose [Cephulac] 20 gm PO DAILY 08/31/23 08/31/23 Losartan Potassium 50 mg PO HS 08/31/23 08/31/23 Morphine Sulfate Ir [MSIR] 15 mg PO BID PRN 08/31/23 08/31/23 Multivit with Calcium,Iron,Min 1 tab PO DAILY 08/31/23 08/31/23 [Women's Multivitamin] Vitamin C(Unknown Dose) 1 tab PO DAILY 08/31/23 08/31/23 buPROPion SR [Wellbutrin SR] 100 mg PO DAILY 08/31/23 08/31/23 buPROPion SR [Wellbutrin SR] 200 mg PO HS 08/31/23 08/31/23 Previous Rx's Medication Instructions Recorded Metoprolol Tartrate [Lopressor] 25 mg PO BID #60 tab 07/28/16 Mirtazapine [Remeron] 15 mg PO HS #30 tablet 07/28/16 Morphine Sulfate ER [Ms Contin] 60 mg PO Q12HR #6 tab 06/10/20 Ondansetron Odt [Zofran Odt] 4 mg PO Q8HR PRN #20 tab 08/31/23 Pantoprazole [Protonix] 40 mg PO DAILY #15 tab 08/31/23 Allergies Allergy/AdvReac Type Severity Reaction Status Date / Time aspirin Allergy Unknown Verified 06/04/20 07:57 ciprofloxacin [From Cipro] Allergy Swelling Verified 06/04/20 07:57 ciprofloxacin HCl Allergy Swelling Verified 06/04/20 07:57 [From Cipro] levofloxacin [From Levaquin] Allergy Rash/Hives Verified 06/04/20 07:57 Penicillins Allergy Rash/Hives Verified 06/04/20 07:57 Review of Systems ROS Statement: Those systems with pertinent positive or pertinent negative responses have been documented in the HPI. ROS Other: All systems not noted in ROS Statement are negative. 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 complicated by a wrist drop and chronic contractures and muscle atrophy in the left upper extremity, complex regional pain syndrome, reflex sympathetic dystrophy, pancreatitis, morbid obesity, history of hemorrhagic cystitis, history of chronic pain, history of GI bleeds, cellulitis, septic in 2016 [facility] History of Any Multi-Drug Resistant Organisms: MRSA Date of last positivie culture/infection: 07/20/16 MDRO Source:: Urine Past Surgical History: Appendectomy, Section, Cholecystectomy Additional Past Surgical History / Comment(s): bowel resection, breast reduction, bilateral ACL repair, left brachial tumor biopsy and lymph node removed, bilateral knee surgery Past Anesthesia/Blood Transfusion Reactions: No Reported Reaction Past Psychological History: Depression Smoking Status: Former smoker Past Alcohol Use History: None Reported Past Drug Use History: None Reported - Past Family History Daughter(s) Family Medical History: No Reported History Father Family Medical History: Diabetes Mellitus Additional Family Medical History / Comment(s): GOUT- ANY OTHER HS UNK Mother Additional Family Medical History / Comment(s): of LUNG DISEASE General Exam Limitations: no limitations General appearance: alert, in no apparent distress Head exam: Present: atraumatic, normocephalic, normal inspection Respiratory exam: Present: normal lung sounds bilaterally. Absent: respiratory distress, wheezes, rales, rhonchi, stridor Cardiovascular Exam: Present: regular rate, normal rhythm, normal heart sounds. Absent: systolic murmur, diastolic murmur, rubs, gallop, clicks GI/Abdominal exam: Present: soft, tenderness (Left sided), normal bowel sounds. Absent: distended Neurological exam: Present: alert, oriented X3, CN II-XII intact Psychiatric exam: Present: normal affect, normal mood Skin exam: Present: warm, dry, intact, normal color. Absent: rash Course Vital Signs 08/31/23 08/31/23 08/31/23 15:44 21:54 22:00 Temperature 98.1 F Pulse Rate 69 80 Respiratory 18 18 Rate Blood Pressure 122/81 110/86 110/86 O2 Sat by Pulse 98 96 96 Oximetry 08/31/23 23:00 Temperature Pulse Rate Respiratory Rate Blood Pressure 124/79 O2 Sat by Pulse 94 L Oximetry Medical Decision Making - Medical Decision Making This is a 53 year old female who presents to the emergency department for abd ominal pain. Was pt. sent in by a medical professional or institution? @ -No Did you speak to anyone other than the patient for history? @ -No Did you review nursing and triage notes? @ -Yes, and I agree, it is accurate with regards to the patient's symptoms. Were old charts reviewed? @ -No Differential Diagnosis? @ -Differential Abdominal Pain Women: Appendicitis, Cholecystitis, diverticulosis, ischemic bowel, pancreatitis, hepatitis, UTI, gastroenteritis, AAA, incarcerated hernia, bowel obstruction, constipation, inflammatory bowel, hepatitis, peptic ulcer disease, splenic infarction, perforated viscus, vulvitis, ovarian torsion, PID, kidney stone, placenta abruption, this is not meant to be an all-inclusive list EKG interpreted by me (3pts min.)? @ -EKG interpreted by me demonstrating the following: Sinus rhythm. Ventricu lar rate 71 bpm, WI interval 181 ms, QRS duration 104 ms, QTc 426 ms. X-rays interpreted by me (1pt min.)? @ -Not obtained CT interpreted by me (1pt min.)? @ -CT scan of the abdomen and pelvis obtained. My interpretation identifies no evidence of bowel wall thickening or free air. U/S interpreted by me (1pt. min.)? @ -Not obtained What testing was considered but not performed? (CT, X-rays, U/S, labs)? Why? @ -None What meds were considered but not given? Why? @ -None Did you discuss the management of the patient with other professionals? @ -Yes, Dr. Nieto, who accepts the patient for admission. Did you reconcile home meds? @ -Yes Was smoking cessation discussed for >3mins.? @ -No Was critical care preformed (if so, how long)? @ -No Were there social determinants of health that impacted care today? How? (Homelessness, low income, unemployed, alcoholism, drug addiction, transportation, low edu. Level, literacy, decrease access to med. care, correction, rehab)? @ -No Was there de-escalation of care discussed even if they declined? (Discuss DNR or withdrawal of care, Hospice)? @ -No What co-morbidities impacted this encounter? (DM, HTN, Smoking, COPD, CAD, Cancer, CVA, Hep., AIDS, mental health diagnosis, sleep apnea, morbid obesity)? @ -Asthma, COPD, Hx of PUD Was patient admitted / discharged? @ -Admitted. Lab work demonstrates a mild elevation in lipase of 375, a mild elevation in bilirubin of 1.6, and an elevation in AST of 75. Alkaline phosph atase mildly elevated at 127. CT scan of the abdomen and pelvis obtained. This demonstrates cirrhotic liver morphology. There is also suspicion of chronic portal venous thrombosis given small vessel caliber and portal venous hypertension given lower esophageal varices. Findings also suggestive of pelvic congestion/gonadal vein congestion on the left. Symptoms initially well- controlled with IV fluids, Zofran, Protonix, and morphine. However pain then returned and patient was given a GI cocktail. She had mild improvement in this and we tried a dose of Norflex due to patient then saying that it felt like a muscle spasm. This again was not very effective. She had no episodes of emesis in the emergency department, however her pain was not well controlled. Case discussed with patient's PCP who advised admission given her complicated GI history and he will evaluate her in the morning. Undiagnosed new problem with uncertain prognosis? @ -None Drug Therapy requiring intensive monitoring for toxicity (Heparin, Nitro, Insulin, Cardizem)? @ -None Were any procedures done? @ -None Diagnosis/symptom? @ -Abdominal pain, liver disease Acute, or Chronic, or Acute on Chronic? @ -Acute Uncomplicated (without systemic symptoms) or Complicated (systemic symptoms)? @ -Complicated Side effects of treatment? @ -None Exacerbation, Progression, or Severe Exacerbation] @ -Not applicable Poses a threat to life or bodily function? @ -Yes This case was discussed in detail with the attending ED physician, Dr. Stein. Presentation, findings, and treatment plan discussed in detail as well. - Lab Data Result diagrams: 09/01/23 13:21 09/02/23 06:16 Lab Results 08/31/23 08/31/23 08/31/23 Range/Units 16:04 16:04 16:04 WBC 5.8 (3.8-10.6) k/uL RBC 3.88 (3.80-5.40) m/uL Hgb 13.1 (11.4-16.0) gm/dL Hct 37.9 (34.0-46.0) % MCV 97.7 (80.0-100.0) fL MCH 33.9 (25.0-35.0) pg MCHC 34.7 (31.0-37.0) g/dL RDW 13.4 (11.5-15.5) % Plt Count 152 (150-450) k/uL MPV 8.5 Neutrophils % 67 % Lymphocytes % 19 % Monocytes % 6 % Eosinophils % 4 % Basophils % 1 % Neutrophils # 3.9 (1.3-7.7) k/uL Lymphocytes # 1.1 (1.0-4.8) k/uL Monocytes # 0.3 (0-1.0) k/uL Eosinophils # 0.2 (0-0.7) k/uL Basophils # 0.0 (0-0.2) k/uL Sodium 139 (137-145) mmol/L Potassium 4.2 (3.5-5.1) mmol/L Chloride 116 H (98-107) mmol/L Carbon Dioxide 20 L (22-30) mmol/L Anion Gap 3 mmol/L BUN 9 (7-17) mg/dL Creatinine 0.60 (0.52-1.04) mg/dL Est GFR (CKD-EPI)AfAm >90 (>60 ml/min/1.73 sqM) Est GFR (CKD-EPI)NonAf >90 (>60 ml/min/1.73 sqM) Glucose 88 (74-99) mg/dL Plasma Lactic Acid Jesus 1.6 (0.7-2.0) mmol/L Calcium 10.3 H (8.4-10.2) mg/dL Total Bilirubin 1.6 H (0.2-1.3) mg/dL AST 75 H (14-36) U/L ALT 26 (4-34) U/L Alkaline Phosphatase 127 H (38-126) U/L Ammonia (<30) umol/L Troponin I (0.000-0.034) ng/mL Total Protein 6.6 (6.3-8.2) g/dL Albumin 3.2 L (3.5-5.0) g/dL Amylase 90 (30-110) U/L Lipase 375 H (23-300) U/L Urine Color Urine Appearance (Clear) Urine pH (5.0-8.0) Ur Specific Winters (1.001-1.035) Urine Protein (Negative) Urine Glucose (UA) (Negative) Urine Ketones (Negative) Urine Blood (Negative) Urine Nitrite (Negative) Urine Bilirubin (Negative) Urine Urobilinogen (<2.0) mg/dL Ur Leukocyte Esterase (Negative) Urine RBC (0-5) /hpf Urine WBC (0-5) /hpf Ur Squamous Epith Cells (0-4) /hpf 08/31/23 08/31/23 08/31/23 Range/Units 16:04 21:07 21:07 WBC (3.8-10.6) k/uL RBC (3.80-5.40) m/uL Hgb (11.4-16.0) gm/dL Hct (34.0-46.0) % MCV (80.0-100.0) fL MCH (25.0-35.0) pg MCHC (31.0-37.0) g/dL RDW (11.5-15.5) % Plt Count (150-450) k/uL MPV Neutrophils % % Lymphocytes % % Monocytes % % Eosinophils % % Basophils % % Neutrophils # (1.3-7.7) k/uL Lymphocytes # (1.0-4.8) k/uL Monocytes # (0-1.0) k/uL Eosinophils # (0-0.7) k/uL Basophils # (0-0.2) k/uL Sodium (137-145) mmol/L Potassium (3.5-5.1) mmol/L Chloride (98-107) mmol/L Carbon Dioxide (22-30) mmol/L Anion Gap mmol/L BUN (7-17) mg/dL Creatinine (0.52-1.04) mg/dL Est GFR (CKD-EPI)AfAm (>60 ml/min/1.73 sqM) Est GFR (CKD-EPI)NonAf (>60 ml/min/1.73 sqM) Glucose (74-99) mg/dL Plasma Lactic Acid Jesus (0.7-2.0) mmol/L Calcium (8.4-10.2) mg/dL Total Bilirubin (0.2-1.3) mg/dL AST (14-36) U/L ALT (4-34) U/L Alkaline Phosphatase (38-126) U/L Ammonia 46 H (<30) umol/L Troponin I <0.012 (0.000-0.034) ng/mL Total Protein (6.3-8.2) g/dL Albumin (3.5-5.0) g/dL Amylase (30-110) U/L Lipase (23-300) U/L Urine Color Colorless Urine Appearance Clear (Clear) Urine pH 7.0 (5.0-8.0) Ur Specific Winters 1.024 (1.001-1.035) Urine Protein Negative (Negative) Urine Glucose (UA) Negative (Negative) Urine Ketones Negative (Negative) Urine Blood Trace H (Negative) Urine Nitrite Negative (Negative) Urine Bilirubin Negative (Negative) Urine Urobilinogen <2.0 (<2.0) mg/dL Ur Leukocyte Esterase Large H (Negative) Urine RBC 4 (0-5) /hpf Urine WBC 24 H (0-5) /hpf Ur Squamous Epith Cells <1 (0-4) /hpf - Radiology Data Radiology results: report reviewed, image reviewed Disposition Clinical Impression: Abdominal pain, Liver disease Disposition: ADMITTED IP TO THIS [facility] Time of Disposition: 09:24
[2023-08-31] MEDS: SODIUM CHLORIDE 0.9% 1,000 ML IV STA ×2 (16:27→19:54)
[2023-08-31] MEDS: PANTOPRAZOLE 40 MG/10 ML VIAL IVP STA (16:28)
[2023-08-31] MEDS: ONDANSETRON 4 MG/2 ML VIAL IVP STA (16:29)
[2023-08-31] MEDS: MORPHINE SULFATE 4 MG/ML SYRINGE IVP STA ×2 (16:29→21:39)
[2023-08-31 16:47] LABS: Basophils % (A) 1 %; Eosinophils # (A) 0.2 k/uL (0-0.7); Eosinophils % (A) 4 %; HCT 37.9 % (34.0-46.0); HGB 13.1 gm/dL (11.4-16.0); Lymphocytes # (A) 1.1 k/uL (1.0-4.8); Lymphocytes % (A) 19 %; MCH 33.9 pg (25.0-35.0); MCHC 34.7 g/dL (31.0-37.0); MCV 97.7 fL (80.0-100.0); Mean Platelet Volume 8.5; Monocytes # (A) 0.3 k/uL (0-1.0); Monocytes % (A) 6 %; Neutrophils # (A) 3.9 k/uL (1.3-7.7); Neutrophils % (A) 67 %; Platelet Count 152 k/uL (150-450); RBC 3.88 m/uL (3.80-5.40); RDW 13.4 % (11.5-15.5); WBC 5.8 k/uL (3.8-10.6)
[2023-08-31 16:59] LABS: ALT 26 U/L (4-34); AST 75 U/L (14-36); African American GFR (CKD) >90 (>60 ml/min/1.73 sqM); Albumin 3.2 g/dL (3.5-5.0); Alkaline Phosphatase 127 U/L (38-126); Amylase 90 U/L (30-110); Anion Gap 3 mmol/L; Blood Urea Nitrogen 9 mg/dL (7-17); Calcium 10.3 mg/dL (8.4-10.2); Carbon Dioxide 20 mmol/L (22-30); Chloride 116 mmol/L (98-107); Glucose 88 mg/dL (74-99); Lipase 375 U/L (23-300); Non-African American GFR(CKD) >90 (>60 ml/min/1.73 sqM); Sodium 139 mmol/L (137-145); Total Bilirubin 1.6 mg/dL (0.2-1.3); Total Protein 6.6 g/dL (6.3-8.2)
[2023-08-31 17:23] LABS: Potassium 4.2 mmol/L (3.5-5.1)
--- NOTE | 2023-08-31 18:43 | CT ---
EXAMINATION TYPE: CT abdomen pelvis w con DATE OF EXAM: 08/31/2023 COMPARISON: 06/04/2020 HISTORY: 53-year-old female Abdominal pain, acute, nonlocalized. TECHNIQUE: Contiguous axial scanning of the abdomen and pelvis following administration of 100 ml Iso timothy 300 IV contrast. Delayed images through the kidneys and coronal/sagittal reconstructions perform ed. CT DLP: 2293.6 mGycm Automated exposure control for dose reduction was used. FINDINGS: Heart upper limits of normal in size. Bandlike areas of atelectasis or scarring in the lower lungs. 7 mm subpleural pulmonary nodule lateral right lower lung may have been present in 2015 but appears as if it may be more defined. Recommend 2-3 month follow-up CT chest to reassess. No pleural effusion. Mild circumference wall thickening distal esophagus. Distal esophageal varices are noted. Cirrhotic, nodular hepatic contour. There is an 8 mm caudate lobe is noted. Bile duct is dilated up to 1.1 cm. Cholecystectomy clips. Small caliber to the main portal vein is u nchanged. Adrenal glands, spleen, and pancreas within normal limits. 3 nonobstructive right renal calculi, largest measuring 1.7 cm. One left-sided renal calculus measuri ng up to 9 mm. Tiny millimeter cortical cyst left kidney. No hydronephrosis on either side. Prominent left abdominal collateral vessels and a splenorenal shunt. No dilated small bowel, free fluid, or free air. No mesenteric or retroperitoneal lymphadenopathy. Scattered mild to moderate stool. No pericolonic inflammatory change. Bladder is urine distended. Uterus anteverted. There appears to be 3.7 cm fibroid at the uterine fund us. Possible pelvic phleboliths. Left-sided periuterine varices, appears to be shunting into the port al venous system. No abnormal fluid collection in the pelvis or pelvic lymphadenopathy. Moderate to advanced spondylotic change mid to lower cervical spine. Degenerative grade 1 retrolisthe sis L3-L4 and L4-L5. IMPRESSION: 1. CIRRHOTIC LIVER MORPHOLOGY. SUSPECT CHRONIC PORTAL VENOUS THROMBUS GIVEN SMALL VESSEL CALIBER. POR DAVID VENOUS HYPERTENSION GIVEN LOWER ESOPHAGEAL VARICES. 2. PORTOSYSTEMIC SHUNTING NOTED BETWEEN A DILATED LEFT OVARIAN VEIN (DEMONSTRATING MULTIPLE LARGE ANNE ICES) COMMUNICATING WITH THE PORTAL VENOUS CONFLUENCE. CORRELATE FOR ANY SYMPTOMS OF PELVIC CONGESTIO N/GONADAL VEIN CONGESTION ON THE LEFT. 3. BILATERAL NEPHROLITHIASIS MEASURING UP TO 1.7 CM. NO HYDRONEPHROSIS. 4. THE BILE DUCT IS DILATED UP TO 1.1 CM, PROBABLY CHRONIC FOR THE PATIENT. 5. 2-3 month follow-up CT chest to reassess a 7 mm right lower lobe pulmonary nodule.
[2023-08-31] MEDS: MAG HYDROX/AL HYDROX/SIMETH 30 ML, HYOSCYAMINE ELIXIR 10 ML, LIDOCAINE VISCOUS 2% 10 ML PO STA (19:54)
[2023-08-31] MEDS: DICYCLOMINE 10 MG/ML 2 ML AMP IM STA (20:29)
[2023-08-31] MEDS: ORPHENADRINE 30 MG/ML 2 ML VIAL IVP STA (20:30)
[2023-08-31] MEDS ORDERED: HYDROcodone/APAP 5-325MG 1 EACH TAB PO PRN (21:22)
[2023-08-31] MEDS ORDERED: ACETAMINOPHEN TAB 325 MG TAB PO PRN (21:22)
[2023-08-31] MEDS ORDERED: ONDANSETRON 4 MG/2 ML VIAL IVP PRN (21:22)
[2023-08-31] MEDS ORDERED: NALOXONE 0.4 MG/ML 1 ML VIAL IV PRN (21:22)
[2023-08-31] MEDS: MIRTAZAPINE 15 MG TAB PO SCH (22:37)
[2023-08-31] MEDS: METOPROLOL TARTRATE 25 MG TAB PO SCH (22:37)
[2023-08-31] MEDS: buPROPion SR 100 MG TABLET.ER PO SCH (22:42)
[2023-08-31 22:59] LABS: Appearance,Urine Clear (Clear); Bilirubin,Urine Negative (Negative); Blood,Urine Trace (Negative); Color,Urine Colorless; Glucose,Urine (UA) Negative (Negative); Ketones,Urine Negative (Negative); Leukocyte Esterase,Urine Large (Negative); Nitrite,Urine Negative (Negative); Protein,Urine Negative (Negative); RBC,Urine 4 /hpf (0-5); Specific Gravity,Urine 1.024 (1.001-1.035); Squamous Epithelial Cell,Urine <1 /hpf (0-4); Urobilinogen,Urine <2.0 mg/dL (<2.0); WBC,Urine 24 /hpf (0-5)
[2023-09-01] MEDS: MORPHINE SULFATE 4 MG/ML SYRINGE IV PRN (03:25)
[2023-09-01] MEDS: LEVOTHYROXINE 50 MCG TAB PO SCH (06:27)
[2023-09-01] MEDS: MORPHINE SULFATE ER 60 MG TABLET PO SCH (09:30)
[2023-09-01] MEDS: ASCORBIC ACID 500 MG TAB PO SCH (09:31)
[2023-09-01] MEDS: MULTIVITAMINS, THERA 1 EACH TAB PO SCH (09:31)
[2023-09-01] MEDS: LACTULOSE 20 GM/30 ML CUP PO SCH ×2 (09:32→20:56)
[2023-09-01] MEDS: buPROPion SR 100 MG TABLET.ER PO SCH (09:32)
[2023-09-01] MEDS: CHOLECALCIFEROL 25 MCG (1000 IU) TABLET PO SCH (09:32)
[2023-09-01] MEDS: PANTOPRAZOLE 40 MG/10 ML VIAL IV SCH (09:32)
--- NOTE | 2023-09-01 13:11 | P.HPIM ---
History of Present Illness H&P Date: 09/01/23 Chief Complaint: Abdominal pain HISTORY OF PRESENT ILLNESS: This is a 53-year-old female with a previous medical history significant for hypertension and hypertensive cardiovascular disease, history of obesity with obstructive sleep apnea and obesity hypoventilation syndrome ( pickwickian syndrom), history of peptic ulcer disease status post EGD 06/05/2020 with Endo Clip and gold probe ablation, history of schwannoma of the left brachial praxis status post surgical intervention that resulted in chronic regional pain syndrome [reflex sympathetic dystrophy], history of liver cirrhosis patient has been cared for by Dr. Rodgers but she has not seen her in 4 years, patient comes to the office only twice a year with her who is the primary caregiver for her she is wheelchair-bound and bedbound, not ambulatory at all, patient presented to the emergency department at [facility] yesterday with left upper quadrant abdominal pain associated with nausea and vomiting, she is stated that she has been throwing up bile since last Sunday, and she is not able to keep things down, patient underwent multiple laboratory evaluation that showed evidence of slight elevation of the lipase and ammonia level, the rest of the laboratory evaluation were normal, she did receive the pain management in the form of morphine as well as Norflex IV, and she ended up going for a CT scan of the abdomen and pelvis that showed evidence of liver cirrhosis with chronic portal venous hypertension and possible portal vein thrombosis, portosystemic shunting between the ovarian vein and portal vein, there was also evidence of 3 right kidney stones without evidence of hydronephrosis the largest one 1.7 and there is evidence of 1 in the left side, there is also 7 mm right lower lobe pulmonary nodule, patient also was found to have a 1.1 cm dilated, bile duct could be related to her cholecystectomy appears to be chronic, patient was admitted to the hospital for further evaluation and hopefully she will be able to discharge home tomorrow morning and follow-up with her access rep as an outpatient in 1 or 2 weeks REVIEW OF SYSTEMS: Constitutional: No documented fever, no chills, no night sweats. No weight change. No weakness, fatigue or lethargy. No daytime sleepiness. EENT: No headache. No blurred vision or double vision, no loss of vision. No loss of Hearing, no ringing in the ears, no dizziness. No nasal drainage or congestion. No epistaxis. No sore throat. Lungs: No shortness of breath, no cough, no sputum production. No wheezing. Reports dyspnea with activity. Cardiovascular: No chest pain, no lower extremity edema. No palpitations. No paroxysmal nocturnal dyspnea. No orthopnea. No lightheadedness or dizziness. No syncopal episodes. Abdominal: Reports abdominal pain. positive for nausea, vomiting. No diarrhea. No constipation. No bloody or tarry stools reports loss of appetite. Genitourinary: No dysuria, increased frequency, urgency. No urinary retention. Musculoskeletal: No myalgias. No muscle weakness, positive for gait dysfunction, no frequent falls. No back pain. No neck pain.left arm pain Integumentary: No wounds, no lesions. No rash or pruritus. No unusual bruising. No change in hair or nails. Neurologic: No aphasia. No facial droop. No change in mentation. No head injury. No headache. No paralysis. No paresthesia. Psychiatric: No depression. positive for anxiety. No mood swings. Endocrine: No abnormal blood sugars. No weight change. PAST MEDICAL HISTORY: Hypertension and hypertensive cardiovascular disease. Liver cirrhosis with portal hypertension and possible chronic portal vein thrombus. Obesity with obstructive sleep apnea with obesity hypoventilation syndrome [pickwickian syndrome] Kidney stones. Chronic regional pain syndrome Schwannoma of the left brachial plexus. chronic pain syndrome. Anxiety disorder. Gait dysfunction. Peptic ulcer disease. Hypothyroidism Mixed hyperlipidemia Colonoscopy 2009 PAST SURGICAL HISTORY: Cholecystectomy. EGD with Endo Clip and gold probe ablation for duodenal ulcer 06/05/2020 Appendectomy. Bowel resection Bilateral ACL repair Bilateral knee surgery Left brachial plexus biopsy with lymph node dissection Bilateral breast reduction surgery. SOCIAL HISTORY: Patient used to smoke about a pack every day since she was 17-year-old, and she quit more than 15 years ago, she denies any alcohol ingestion, no drug use or ab use, she lives with her who is the primary caregiver. FAMILY HISTORY: Father is 65-year-old with history of hypertension mother at the age of 51 from idiopathic pulmonary fibrosis patient has 1 sister 50-year-old with history of osteoarthritis 1 son alive and healthy and 2 daughters no major medical problems. PHYSICAL EXAMINATION: General: 53-year-old female laying down in bed in no apparent distress HEENT: Head is atraumatic, normocephalic, pupils were equal round reactive to light and recommendation, extraocular muscle movement were intact, sclera nonicteric, conjunctivae were pale, mucous membranes of the mouth are somewhat dry. Neck: Supple, no JVP, normal carotid upstroke bilaterally, no lymphadenopathy. Chest: Decreased breath sounds at the bases, few rhonchi, no expiratory wheezes, no chest wall tenderness, no intercostal retractions. Heart: First heart sound is normal, second heart sound is normal there is systolic ejection murmur 2/6 located in the left sternal border. Abdomen: Soft, mild left upper quadrant tenderness, nondistended, positive bowel sounds. Extremities: There is no edema no calf tenderness DP +2 bilaterally. Neurologic examination: Patient is awake alert and oriented x3 , cranial nerves II-12 appear grossly intact, muscle power were 5 out of 5 in upper extremities and 5 out of 5 in bilateral lower extremities, deep tendon reflexes normal bilaterally. ASSESSMENT AND PLAN: 1. Left upper quadrant abdominal pain likely related to underlying liver cirrhosis, possible portal vein hypertension and portal vein thrombus rule out pancreatic duct stenosis especially with elevated lipase. This appears to be a chronic does not appear to be an acute situation at this point in time, patient already has her pain management in place, she has been getting morphine sulfate extended release and for breakthrough pain, will continue with that follow-up with her pain management doctor, she will need to follow-up with gastroenterology as an outpatient for further recommendation. Continue patient on lactulose 20 g / 30 mL orally twice every day, continue clear liquid diet, start the patient on IV fluid resuscitation in the form of D5 half-normal saline at 75 cc an hour, GI consultation with Dr. Rodgers on Sunday. 2. Hypertension and hypertensive cardiovascular disease. Continue patient on metoprolol 25 mg orally twice every day, continue losartan 50 mg at bedtime, monitor the patient blood pressure very closely. 3. Hypothyroidism. Continue patient on Synthroid 50 mcg orally once every day, monitor the patient TSH and free T4 as an outpatient. 4. Mixed hyperlipidemia not taking any statin due to her liver cirrhosis. 5. Anxiety disorder. Continue patient on Wellbutrin SR 200 mg in the morning and 100 mg at bedtime, continue mirtazapine 5 to 15 mg orally at bedtime will continue with Xanax as needed. 6. Obesity with obstructive sleep apnea and obesity hypoventilation syndrome [pickwickian syndrome]. continue with her CPAP machine. 7. History of peptic ulcer disease. Continue patient on Protonix 40 mg orally once every day. 8. Bilateral kidney stones. No hydronephrosis appears to be stable at this time. 9. 7 mm right pulmonary nodule. Repeat CT scan of the chest with contrast in 3 months. 10. Dilated common bile duct at 1.1 cm likely chronic due to cholecystectomy. 11. DVT prophylaxis. Lovenox 40 mg subcutaneously every 24 hours. 12. GI prophylaxis. Continue patient on Protonix 40 mg orally once every day. 13. Admit to inpatient estimated length of stay 2 midnights. 14. Full code. 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 complicated by a wrist drop and chronic contractures and muscle atrophy in the left upper extremity, complex regional pain syndrome, reflex sympathetic dystrophy, pancreatitis, morbid obesity, history of hemorrhagic cystitis, history of chronic pain, history of GI bleeds, cellulitis, septic in 2016 from UTI History of Any Multi-Drug Resistant Organisms: MRSA Date of last positivie culture/infection: 07/20/16 MDRO Source:: Urine Past Surgical History: Appendectomy, Section, Cholecystectomy Additional Past Surgical History / Comment(s): bowel resection, breast reduction, bilateral ACL repair, left brachial tumor biopsy and lymph node removed, bilateral knee surgery, stent to pancreas Past Anesthesia/Blood Transfusion Reactions: No Reported Reaction Past Psychological History: Depression Additional Psychological History / Comment(s): PT SAW DR MALIK DEVRIES IN [facility]([address] [facility]) [phone] AFIA TELLEZ [phone]. Smoking Status: Former smoker Past Alcohol Use History: Rare Past Drug Use History: None Reported - Past Family History Daughter(s) Family Medical History: No Reported History Father Family Medical History: Diabetes Mellitus Additional Family Medical History / Comment(s): GOUT- ANY OTHER HS UNK Mother Additional Family Medical History / Comment(s): of LUNG DISEASE Medications and Allergies Home Medications Medication Instructions Recorded Confirmed Type Metoprolol Tartrate [Lopressor] 25 mg PO BID #60 tab 07/28/16 08/31/23 Rx Mirtazapine [Remeron] 15 mg PO HS #30 tablet 07/28/16 08/31/23 Rx Levothyroxine Sodium [Synthroid] 50 mcg PO DAILY 06/04/20 08/31/23 History Morphine Sulfate ER [Ms Contin] 60 mg PO Q12HR #6 tab 06/10/20 08/31/23 Rx ALPRAZolam [Xanax] 0.25 mg PO BID PRN 08/31/23 08/31/23 History Cholecalciferol [Vitamin D3 (25 50 mcg PO DAILY 08/31/23 08/31/23 History Mcg = 1000 Iu)] Lactulose [Cephulac] 20 gm PO DAILY 08/31/23 08/31/23 History Losartan Potassium 50 mg PO HS 08/31/23 08/31/23 History Morphine Sulfate Ir [MSIR] 15 mg PO BID PRN 08/31/23 08/31/23 History Multivit with Calcium,Iron,Min 1 tab PO DAILY 08/31/23 08/31/23 History [Women's Multivitamin] Ondansetron Odt [Zofran Odt] 4 mg PO Q8HR PRN #20 tab 08/31/23 Rx Pantoprazole [Protonix] 40 mg PO DAILY #15 tab 08/31/23 Rx Vitamin C(Unknown Dose) 1 tab PO DAILY 08/31/23 08/31/23 History buPROPion SR [Wellbutrin SR] 100 mg PO DAILY 08/31/23 08/31/23 History buPROPion SR [Wellbutrin SR] 200 mg PO HS 08/31/23 08/31/23 History Allergies Allergy/AdvReac Type Severity Reaction Status Date / Time aspirin Allergy Unknown Verified 06/04/20 07:57 ciprofloxacin [From Cipro] Allergy Swelling Verified 06/04/20 07:57 ciprofloxacin HCl Allergy Swelling Verified 06/04/20 07:57 [From Cipro] levofloxacin [From Levaquin] Allergy Rash/Hives Verified 06/04/20 07:57 Penicillins Allergy Rash/Hives Verified 06/04/20 07:57 Physical Exam Vitals: Vital Signs Temp Pulse Pulse Resp BP BP Pulse Ox 09/01/23 07:00 98.4 F 77 16 93/58 97 09/01/23 02:20 98.3 F 77 18 97/60 99 08/31/23 23:35 98.5 F 76 19 124/73 100 08/31/23 23:00 124/79 94 L 08/31/23 22:00 110/86 96 08/31/23 21:54 80 18 110/86 96 08/31/23 15:44 98.1 F 69 18 122/81 98 Intake and Output 08/31/23 09/01/23 09/01/23 22:59 06:59 14:59 Other: Voiding Method External Catheter # Voids 0 Weight 102.058 kg 102.058 kg Results CBC & Chem 7: 08/31/23 16:04 08/31/23 16:04 Labs: Abnormal Lab Results - Last 24 Hours (Table) 08/31/23 08/31/23 08/31/23 Range/Units 16:04 21:07 21:07 Chloride 116 H (98-107) mmol/L Carbon Dioxide 20 L (22-30) mmol/L Calcium 10.3 H (8.4-10.2) mg/dL Total Bilirubin 1.6 H (0.2-1.3) mg/dL AST 75 H (14-36) U/L Alkaline Phosphatase 127 H (38-126) U/L Ammonia 46 H (<30) umol/L Albumin 3.2 L (3.5-5.0) g/dL Lipase 375 H (23-300) U/L Urine Blood Trace H (Negative) Ur Leukocyte Esterase Large H (Negative) Urine WBC 24 H (0-5) /hpf
[2023-09-01 13:39] LABS: Basophils # (A) 0.1 k/uL (0-0.2); Basophils % (A) 1 %; Eosinophils # (A) 0.3 k/uL (0-0.7); Eosinophils % (A) 7 %; HGB 11.1 gm/dL (11.4-16.0); Lymphocytes # (A) 1.5 k/uL (1.0-4.8); Lymphocytes % (A) 31 %; MCH 33.1 pg (25.0-35.0); MCHC 33.6 g/dL (31.0-37.0); MCV 98.4 fL (80.0-100.0); Mean Platelet Volume 8.5; Monocytes # (A) 0.4 k/uL (0-1.0); Monocytes % (A) 9 %; Neutrophils # (A) 2.3 k/uL (1.3-7.7); Neutrophils % (A) 48 %; Platelet Count 133 k/uL (150-450); RBC 3.36 m/uL (3.80-5.40); RDW 13.5 % (11.5-15.5); WBC 4.8 k/uL (3.8-10.6)
[2023-09-01] MEDS: D5-0.45% NACL WITH KCL 20MEQ/L 1,000 ML IV SCH (14:55)
[2023-09-01] MEDS: MORPHINE SULFATE IR 15 MG TABLET PO PRN (17:14)
[2023-09-01] MEDS: LOSARTAN 50 MG TAB PO SCH (20:47)
[2023-09-01] MEDS: ALPRAZolam 0.25 MG TAB PO PRN (20:55)
[2023-09-02] MEDS: ENOXAPARIN 40 MG/0.4 ML SYRINGE SQ SCH (09:05)
[2023-09-02 11:33] LABS: ALT 21 U/L (8-44); AST 60 U/L (13-35); Albumin 3.1 g/dL (3.8-4.9); Albumin/Globulin Ratio 1.24 Ratio (1.60-3.17); Alkaline Phosphatase 92 U/L (41-126); Amylase 33 U/L (23-121); BUN/Creat Ratio 6.29 Ratio (12.00-20.00); Blood Urea Nitrogen 4.4 mg/dL (9.0-27.0); Calcium 9.7 mg/dL (8.7-10.3); Carbon Dioxide 20.2 mmol/L (21.6-31.8); Chloride 113 mmol/L (96-109); Globulin 2.5 g/dL (1.6-3.3); Glucose 95 mg/dL (70-110); Lipase 44 U/L (14-63); Potassium 3.7 mmol/L (3.5-5.5); Sodium 142 mmol/L (135-145); Total Bilirubin 1.5 mg/dL (0.3-1.2); Total Protein 5.6 g/dL (6.2-8.2)
--- NOTE | 2023-09-02 11:40 | P.PN ---
Subjective Progress Note Date: 09/02/23 HISTORY OF PRESENT ILLNESS: This is a 53-year-old female with a previous medical history signif icant for hypertension and hypertensive cardiovascular disease, history of obesity with obstructive sleep apnea and obesity hypoventilation syndrome ( pickwickian syndrom), history of peptic ulcer disease status post EGD 06/05/2020 with Endo Clip and gold probe ablation, history of schwannoma of the left brachial praxis status post surgical intervention that resulted in chronic regional pain syndrome [reflex sympathetic dystrophy], history of liver cirrhosis patient has been cared for by Dr. Rodgers but she has not seen her in 4 years, patient comes to the office only twice a year with her who is the primary caregiver for her she is wheelchair-bound and bedbound, not ambulatory at all, patient presented to the emergency department at [facility] yesterday with left upper quadrant abdominal pain associated with nausea and vomiting, she is stated that she has been throwing up bile since last Sunday, and she is not able to keep things down, patient underwent multiple laboratory evaluation that showed evidence of slight elevation of the lipase and ammonia level, the rest of the laboratory evaluation were normal, she did receive the pain management in the form of morphine as well as Norflex IV, and she ended up going for a CT scan of the abdomen and pelvis that showed evidence of liver cirrhosis with chronic portal venous hypertension and possible portal vein thrombosis, portosystemic shunting between the ovarian vein and portal vein, there was also evidence of 3 right kidney stones without evidence of hydronephrosis the largest one 1.7 and there is evidence of 1 in the left side, there is also 7 mm right lower lobe pulmonary nodule, patient also was found to have a 1.1 cm dilated, bile duct could be related to her cholecystectomy appears to be chronic, patient was admitted to the hospital for further evaluation and hopefully she will be able to discharge home tomorrow morning and follow-up with her channel opener outsoles as an outpatient in 1 or 2 weeks 09/01: Patient is lying down in bed in no apparent distress, she denies any chest pain, shortness of breath, she continues to have some abdominal pain, she denies any nausea or vomiting she has been tolerating clear liquid diet, patient was admitted for dilated common bile duct with liver cirrhosis, her lactulose was increased to twice a day, continue to monitor the patient very closely, consulted gastroenterology for further evaluation tomorrow morning, advance diet to soft diet. REVIEW OF SYSTEMS: Constitutional: No documented fever, no chills, no night sweats. No weight change. No weakness, fatigue or lethargy. No daytime sleepiness. EENT: No headache. No blurred vision or double vision, no loss of vision. No loss of Hearing, no ringing in the ears, no dizziness. No nasal drainage or congestion. No epistaxis. No sore throat. Lungs: No shortness of breath, no cough, no sputum production. No wheezing. Reports dyspnea with activity. Cardiovascular: No chest pain, no lower extremity edema. No palpitations. No paroxysmal nocturnal dyspnea. No orthopnea. No lightheadedness or dizziness. No syncopal episodes. Abdominal: Reports abdominal pain. no Nausea, vomiting. No diarrhea. No constipation. No bloody or tarry stools reports loss of appetite. Genitourinary: No dysuria, increased frequency, urgency. No urinary retention. Musculoskeletal: No myalgias. No muscle weakness, positive for gait dysfunction, no frequent falls. No back pain. No neck pain.left arm pain Integumentary: No wounds, no lesions. No rash or pruritus. No unusual bruising. No change in hair or nails. Neurologic: No aphasia. No facial droop. No change in mentation. No head injury. No headache. No paralysis. No paresthesia. Psychiatric: No depression. positive for anxiety. No mood swings. Endocrine: No abnormal blood sugars. No weight change. PHYSICAL EXAMINATION: General: 53-year-old female laying down in bed in no apparent distress HEENT: Head is atraumatic, normocephalic, pupils were equal round reactive to light and recommendation, extraocular muscle movement were intact, sclera nonicteric, conjunctivae were pale, mucous membranes of the mouth are somewhat dry. Neck: Supple, no JVP, normal carotid upstroke bilaterally, no lymphadenopathy. Chest: Decreased breath sounds at the bases, few rhonchi, no expiratory wheezes, no chest wall tenderness, no intercostal retractions. Heart: First heart sound is normal, second heart sound is normal there is systolic ejection murmur 2/6 located in the left sternal border. Abdomen: Soft, mild left upper quadrant tenderness, nondistended, positive bowel sounds. Extremities: There is no edema no calf tenderness DP +2 bilaterally. Neurologic examination: Patient is awake alert and oriented x3 , cranial nerves II-12 appear grossly intact, muscle power were 5 out of 5 in upper extremities and 5 out of 5 in bilateral lower extremities, deep tendon reflexes normal bilaterally. ASSESSMENT AND PLAN: 1. Left upper quadrant abdominal pain likely related to underlying liver cirrhosis, possible portal vein hypertension and chronic portal vein thrombus rule out pancreatic duct stenosis especially with elevated lipase. This appears to be a chronic does not appear to be an acute situation at this point in time, patient already has her pain management in place, she has been getting morphine sulfate extended release and for breakthrough pain, will continue with that follow-up with her pain management doctor, she will need to follow-up with gastroenterology as an outpatient for further recommendation. Continue patient on lactulose 20 g / 30 mL orally twice every day, continue clear liquid diet, start the patient on IV fluid resuscitation in the form of D5 half-normal saline at 75 cc an hour, GI consultation with Dr. Rodgers on Sunday. 2. Hypertension and hypertensive cardiovascular disease. Continue patient on metoprolol 25 mg orally twice every day, continue losartan 50 mg at bedtime, monitor the patient blood pressure very closely. 3. Hypothyroidism. Continue patient on Synthroid 50 mcg orally once every day, monitor the patient TSH and free T4 as an outpatient. 4. Mixed hyperlipidemia not taking any statin due to her liver cirrhosis. 5. Anxiety disorder. Continue patient on Wellbutrin SR 200 mg in the morning and 100 mg at bedtime, continue mirtazapine 5 to 15 mg orally at bedtime will continue with Xanax as needed. 6. Obesity with obstructive sleep apnea and obesity hypoventilation syndrome [pickwickian syndrome]. continue with her CPAP machine. 7. History of peptic ulcer disease. Continue patient on Protonix 40 mg orally once every day. 8. Bilateral kidney stones. No hydronephrosis appears to be stable at this time. 9. 7 mm right pulmonary nodule. Repeat CT scan of the chest with contrast in 3 months. 10. Dilated common bile duct at 1.1 cm likely chronic due to cholecystectomy. 11. DVT prophylaxis. Lovenox 40 mg subcutaneously every 24 hours. 12. GI prophylaxis. Continue patient on Protonix 40 mg orally once every day. 13. Prognosis is guarded. 14. Advance to soft diet Objective - Vital Signs Vital signs: Vital Signs Temp 98.6 F 09/02/23 07:00 Pulse 74 09/02/23 07:00 Resp 16 09/02/23 07:00 BP 106/51 09/02/23 07:00 Pulse Ox 99 09/02/23 07:00 FiO2 Intake & Output 09/01/23 09/02/23 09/02/23 17:59 06:59 18:59 Intake Total Output Total Balance Intake: Oral Output: Urine Other: Voiding Method # Voids # Bowel Movements - Labs CBC & Chem 7: 09/01/23 13:21 09/02/23 06:16 Labs: Abnormal Lab Results - Last 24 Hours (Table) 09/01/23 09/02/23 Range/Units 13:21 06:16 RBC 3.36 L (3.80-5.40) m/uL Hgb 11.1 L (11.4-16.0) gm/dL Hct 33.0 L (34.0-46.0) % Plt Count 133 L (150-450) k/uL Ammonia 94 H (<30) umol/L
[2023-09-03 08:52] LABS: Amylase 26 U/L (23-121); Lipase 43 U/L (14-63)
[2023-09-03] MEDS: LACTULOSE 20 GM/30 ML CUP PO SCH (09:08)
--- NOTE | 2023-09-03 12:34 | P.CONS ---
History of Present Illness - Reason for Consult Consult date: 09/03/23 Abdominal pain/liver cirrhosis Requesting physician: Erma Nieto - Chief Complaint Abdominal pain - History of Present Illness This is a pleasant 53-year-old female with a past medical history significant for COPD, pickwickian syndrome, schwannoma of the brachial plexus status postsurgical resection, history of pancreatitis, morbid obesity, prior GI bleed with findings of bleeding ulcer who presented to the emergency department with complaints of left lower quadrant/flank pain. Patient states pain comes and goes. Light and is more sharp, kept her up through the night last night. She also had symptoms of nausea and vomiting associated with this pain. Denies any fevers or chills, she has been afebrile. Denies any hematemesis. Last EGD was May [address] Caldwell where she had an EGD with epinephrine administration and Endo Clip placed for active bleeding ulcer in the duodenal sweep. During this hospitalization she had a CT of the abdomen and pelvis with contrast which reports cirrhotic liver morphology. Gastroenterology was consulted for liver cirrhosis and abdominal pain. Patient states she was diagnosed by Dr. Nieto with liver cirrhosis few weeks ago. She denies any history of alcohol use or health alcohol abuse in the past. Patient is morbidly obese and has been for some years. She had elevated ammonia on admission 46 and trending up today with a level at 102. She had mild elevation of her lipase on admission at 375 which is currently now normal. Most recent labs WBC 4.8 hemoglobin 11 platelet count 133,000 sodium 142 potassium 3.7 BUN 4.4 creatinine 0.7 total bilirubin 1.5 AST 60 ALT 21 alkaline phosphatase 92 amylase 26 lipase 43. Tumor AFP marker less than 3. She is currently on lactulose 20 mg twice daily. Review of Systems REVIEW OF SYSTEMS: CARDIOPULMONARY: No chest pain or shortness of breath. Gastrointestinal: Left mid quadrant and flank pain. Prior nausea and vomiting none currently. No hematemesis, coffee-ground emesis. No rectal bleeding, or melena. GENITOURINARY: No dysuria or hematuria. MUSCULOSKELETAL: Reports normal range of motion. SKIN: No rashes. No jaundice. ENDOCRINE: No chills, fevers. No excessive weight gain or loss. No polydipsia or polyuria. PSYCHIATRIC: Unremarkable. NEUROLOGY: No change in mental status. Denies dizziness, headache. ENT: Vision unremarkable. CONSTITUTIONAL: No recent weight loss. No fever, chills, night sweats. 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 complicated by a wrist drop and chronic contractures and muscle atrophy in the left upper extremity, complex regional pain syndrome, reflex sympathetic dystrophy, pancreatitis, morbid obesity, history of hemorrhagic cystitis, history of chronic pain, history of GI bleeds, cellulitis, septic in 2016 [facility] History of Any Multi-Drug Resistant Organisms: MRSA Year Discovered:: 07/20/16 MDRO Source:: Urine Past Surgical History: Appendectomy, Section, Cholecystectomy Additional Past Surgical History / Comment(s): bowel resection, breast reduction, bilateral ACL repair, left brachial tumor biopsy and lymph node removed, bilateral knee surgery Past Anesthesia/Blood Transfusion Reactions: No Reported Reaction Past Psychological History: Depression Smoking Status: Former smoker Past Alcohol Use History: None Reported Past Drug Use History: None Reported - Past Family History Daughter(s) Family Medical History: No Reported History Father Family Medical History: Diabetes Mellitus Additional Family Medical History / Comment(s): GOUT- ANY OTHER HS UNK Mother Additional Family Medical History / Comment(s): of LUNG DISEASE Medications and Allergies Home Medications Medication Instructions Recorded Confirmed Type Metoprolol Tartrate [Lopressor] 25 mg PO BID #60 tab 07/28/16 08/31/23 Rx Mirtazapine [Remeron] 15 mg PO HS #30 tablet 07/28/16 08/31/23 Rx Levothyroxine Sodium [Synthroid] 50 mcg PO DAILY 06/04/20 08/31/23 History Morphine Sulfate ER [Ms Contin] 60 mg PO Q12HR #6 tab 06/10/20 08/31/23 Rx ALPRAZolam [Xanax] 0.25 mg PO BID PRN 08/31/23 08/31/23 History Cholecalciferol [Vitamin D3 (25 50 mcg PO DAILY 08/31/23 08/31/23 History Mcg = 1000 Iu)] Lactulose [Cephulac] 20 gm PO DAILY 08/31/23 08/31/23 History Losartan Potassium 50 mg PO HS 08/31/23 08/31/23 History Morphine Sulfate Ir [MSIR] 15 mg PO BID PRN 08/31/23 08/31/23 History Multivit with Calcium,Iron,Min 1 tab PO DAILY 08/31/23 08/31/23 History [Women's Multivitamin] Ondansetron Odt [Zofran Odt] 4 mg PO Q8HR PRN #20 tab 08/31/23 Rx Pantoprazole [Protonix] 40 mg PO DAILY #15 tab 08/31/23 Rx Vitamin C(Unknown Dose) 1 tab PO DAILY 08/31/23 08/31/23 History buPROPion SR [Wellbutrin SR] 100 mg PO DAILY 08/31/23 08/31/23 History buPROPion SR [Wellbutrin SR] 200 mg PO HS 08/31/23 08/31/23 History Allergies Allergy/AdvReac Type Severity Reaction Status Date / Time aspirin Allergy Unknown Verified 06/04/20 07:57 ciprofloxacin [From Cipro] Allergy Swelling Verified 06/04/20 07:57 ciprofloxacin HCl Allergy Swelling Verified 06/04/20 07:57 [From Cipro] levofloxacin [From Levaquin] Allergy Rash/Hives Verified 06/04/20 07:57 Penicillins Allergy Rash/Hives Verified 06/04/20 07:57 Physical Exam Vitals: Vital Signs Temp Pulse Resp BP Pulse Ox 09/03/23 07:50 98.9 F 80 15 100/61 97 09/03/23 02:00 98.8 F 79 16 95/61 95 09/02/23 20:00 98.7 F 86 16 111/55 95 09/02/23 15:00 98.3 F 75 16 100/61 95 Intake and Output 09/02/23 09/03/23 09/03/23 22:59 06:59 14:59 Intake Total 100 Output Total 1125 300 Balance -1025 -300 Intake: Oral 100 Output: Urine 1125 300 Other: Voiding Method External Catheter General appearance: The patient is alert, oriented, appears in no acute distress. Morbidly obese. HET: Head is normocephalic and atraumatic. Conjunctiva pink. Sclera anicteric. Neck: Supple without lymphadenopathy. Trachea midline. Heart: Regular. Lungs: Equal expansion, normal respiratory effort. Abdomen: Soft, morbidly obese, left mid quadrant tenderness, flank tenderness, Skin: No rashes. No jaundice. Extremities: Normal skin color and turgor. No pedal edema. Neurological: No focal deficits. Alert and oriented x3. Results CBC & Chem 7: 09/01/23 13:21 09/02/23 06:16 Labs: Abnormal Lab Results - Last 24 Hours (Table) 09/02/23 Range/Units 06:16 Chloride 113 H (96-109) mmol/L Carbon Dioxide 20.2 L (21.6-31.8) mmol/L BUN 4.4 L (9.0-27.0) mg/dL BUN/Creatinine Ratio 6.29 L (12.00-20.00) Ratio Total Bilirubin 1.5 H (0.3-1.2) mg/dL AST 60 H (13-35) U/L Total Protein 5.6 L (6.2-8.2) g/dL Albumin 3.1 L (3.8-4.9) g/dL Albumin/Globulin Ratio 1.24 L (1.60-3.17) Ratio Comments: CT of the abdomen and pelvis with contrast which reports cirrhotic liver morphology. Suspect chronic portal venous thrombus. Given small vessel caliber. Portal venous hypertension given lower esophageal varices. Portosystemic shunting noted between a dilated left ovarian vein demonstrating multiple large varices communicating with the portal venous confluence. Correlate for any symptoms of pelvic congestion/gonadal vein congestion on the left. Bilateral nephrolithiasis measuring up to 1.7 cm. No hydro nephrosis. The bile duct is dilated up to 1.1 cm probably chronic for the patient. 2 to 3- month follow-up CT chest to reassess a 7 mm right lower lobe pulmonary nodule. Assessment and Plan (1) Liver cirrhosis Narrative/Plan: 53-year-old female presenting with abdominal pain nausea and vomiting. She had a CT of the abdomen pelvis with contrast reporting cirrhotic morphology of the liver. Patient states she was recently diagnosed by her PCP for liver cirrhosis. She presented with mild elevation in her total bilirubin and AST. Also noted to have elevated ammonia level. No history of alcohol use, patient does have pickwickian syndrome and possible etiology of liver cirrhosis is secondary to obesity and fatty liver, however need to consider other possible etiologies. Will obtain liver serologies and hepatitis panel. Current Visit: Yes Status: Acute Code(s): K74.60 - UNSPECIFIED CIRRHOSIS OF LIVER SNOMED Code(s): 19608875 (2) Abdominal pain Narrative/Plan: Unclear etiology, mostly on the left mid quadrant and flank. Likely related to liver cirrhosis or peptic ulcer disease. Consider possibly related to nephrolithiasis, also noted was portosystemic shunting between dilated left ovarian vein communicating with portal venous confluence. Possibility of pelvic congestion/gonadal vein congestion on the left. Current Visit: Yes Status: Acute Code(s): R10.9 - UNSPECIFIED ABDOMINAL PAIN SNOMED Code(s): 00619662 (3) Hyperammonemia Narrative/Plan: Increase lactulose to 30 g 3 times daily, titrate to have 3-4 bowel movements daily Current Visit: No Status: Acute Code(s): E72.20 - DISORDER OF UREA CYCLE METABOLISM, UNSPECIFIED SNOMED Code(s): 0414582 (4) Left flank pain Current Visit: Yes Status: Acute Code(s): R10.9 - UNSPECIFIED ABDOMINAL PAIN SNOMED Code(s): 701728815 (5) Morbid obesity Narrative/Plan: Recommend weight loss Current Visit: No Status: Acute Code(s): E66.01 - MORBID (SEVERE) OBESITY DUE TO EXCESS CALORIES SNOMED Code(s): 823455521 (6) Nephrolithiasis Current Visit: No Status: Acute Code(s): N20.0 - CALCULUS OF KIDNEY SNOMED Code(s): 52120019 Plan: 1. Continue symptomatic and supportive care 2. Liver serologies and hepatitis panel ordered 3. Repeat daily ammonia level 4. Increase lactulose to 30 g 3 times daily 5. Will plan for EGD tomorrow to evaluate abdominal pain 6. Consider other possible etiologies for left flank pain Thank you for this consultation, we will continue to follow. Dr. Kushal Rodgers I agree with the dictator's note, documented as a scribe by Anne Patricio.
--- NOTE | 2023-09-03 21:30 | P.PN ---
Subjective Progress Note Date: 09/03/23 HISTORY OF PRESENT ILLNESS: This is a 53-year-old female with a previous medical history signif icant for hypertension and hypertensive cardiovascular disease, history of obesity with obstructive sleep apnea and obesity hypoventilation syndrome ( pickwickian syndrom), history of peptic ulcer disease status post EGD 06/05/2020 with Endo Clip and gold probe ablation, history of schwannoma of the left brachial praxis status post surgical intervention that resulted in chronic regional pain syndrome [reflex sympathetic dystrophy], history of liver cirrhosis patient has been cared for by Dr. Rodgers but she has not seen her in 4 years, patient comes to the office only twice a year with her who is the primary caregiver for her she is wheelchair-bound and bedbound, not ambulatory at all, patient presented to the emergency department at [facility] yesterday with left upper quadrant abdominal pain associated with nausea and vomiting, she is stated that she has been throwing up bile since last Sunday, and she is not able to keep things down, patient underwent multiple laboratory evaluation that showed evidence of slight elevation of the lipase and ammonia level, the rest of the laboratory evaluation were normal, she did receive the pain management in the form of morphine as well as Norflex IV, and she ended up going for a CT scan of the abdomen and pelvis that showed evidence of liver cirrhosis with chronic portal venous hypertension and possible portal vein thrombosis, portosystemic shunting between the ovarian vein and portal vein, there was also evidence of 3 right kidney stones without evidence of hydronephrosis the largest one 1.7 and there is evidence of 1 in the left side, there is also 7 mm right lower lobe pulmonary nodule, patient also was found to have a 1.1 cm dilated, bile duct could be related to her cholecystectomy appears to be chronic, patient was admitted to the hospital for further evaluation and hopefully she will be able to discharge home tomorrow morning and follow-up with her proposal review analyst as an outpatient in 1 or 2 weeks 09/01: Patient is lying down in bed in no apparent distress, she denies any chest pain, shortness of breath, she continues to have some abdominal pain, she denies any nausea or vomiting she has been tolerating clear liquid diet, patient was admitted for dilated common bile duct with liver cirrhosis, her lactulose was increased to twice a day, continue to monitor the patient very closely, consulted gastroenterology for further evaluation tomorrow morning, advance diet to soft diet. 09/02: Patient is feeling a bit better today, she continues to be laying down in bed in no apparent distress, she was seen earlier by gastroenterology we will continue with current treatment plan, she continues to tolerate soft diet, laboratory evaluation were reviewed, patient is scheduled to go for an EGD tomorrow morning for further evaluation and recommendation by gastroenterology, it was recommended also to increase her lactulose to 3 times every day monitor ammonia level on a daily basis REVIEW OF SYSTEMS: Constitutional: No documented fever, no chills, no night sweats. No weight change. No weakness, fatigue or lethargy. No daytime sleepiness. EENT: No headache. No blurred vision or double vision, no loss of vision. No loss of Hearing, no ringing in the ears, no dizziness. No nasal drainage or congestion. No epistaxis. No sore throat. Lungs: No shortness of breath, no cough, no sputum production. No wheezing. Reports dyspnea with activity. Cardiovascular: No chest pain, no lower extremity edema. No palpitations. No paroxysmal nocturnal dyspnea. No orthopnea. No lightheadedness or dizziness. No syncopal episodes. Abdominal: Reports abdominal pain. no Nausea, vomiting. No diarrhea. No constipation. No bloody or tarry stools reports loss of appetite. Genitourinary: No dysuria, increased frequency, urgency. No urinary retention. Musculoskeletal: No myalgias. No muscle weakness, positive for gait dysfunction, no frequent falls. No back pain. No neck pain.left arm pain Integumentary: No wounds, no lesions. No rash or pruritus. No unusual bruising. No change in hair or nails. Neurologic: No aphasia. No facial droop. No change in mentation. No head injury. No headache. No paralysis. No paresthesia. Psychiatric: No depression. positive for anxiety. No mood swings. Endocrine: No abnormal blood sugars. No weight change. PHYSICAL EXAMINATION: General: 53-year-old female laying down in bed in no apparent distress HEENT: Head is atraumatic, normocephalic, pupils were equal round reactive to light and recommendation, extraocular muscle movement were intact, sclera nonicteric, conjunctivae were pale, mucous membranes of the mouth are somewhat d ry. Neck: Supple, no JVP, normal carotid upstroke bilaterally, no lymphadenopathy. Chest: Decreased breath sounds at the bases, few rhonchi, no expiratory wheezes, no chest wall tenderness, no intercostal retractions. Heart: First heart sound is normal, second heart sound is normal there is systolic ejection murmur 2/6 located in the left sternal border. Abdomen: Soft, mild left upper quadrant tenderness, nondistended, positive bowel sounds. Extremities: There is no edema no calf tenderness DP +2 bilaterally. Neurologic examination: Patient is awake alert and oriented x3 , cranial nerves II-12 appear grossly intact, muscle power were 5 out of 5 in upper extremities and 5 out of 5 in bilateral lower extremities, deep tendon reflexes normal bilaterally. ASSESSMENT AND PLAN: 1. Left upper quadrant abdominal pain likely related to underlying liver cirrhosis, possible portal vein hypertension and chronic portal vein thrombus rule out pancreatic duct stenosis especially with elevated lipase. This appears to be a chronic does not appear to be an acute situation at this point in time, patient already has her pain management in place, she has been getting morphine sulfate extended release and for breakthrough pain, will continue with that follow-up with her pain management doctor, she will need to follow-up with gastroenterology as an outpatient for further recommendation. Continue patient on lactulose 20 g / 30 mL orally twice every day, continue clear liquid diet, start the patient on IV fluid resuscitation in the form of D5 half-normal saline at 75 cc an hour, GI consultation 2. Hypertension and hypertensive cardiovascular disease. Continue patient on metoprolol 25 mg orally twice every day, continue losartan 50 mg at bedtime, monitor the patient blood pressure very closely. 3. Hypothyroidism. Continue patient on Synthroid 50 mcg orally once every day, monitor the patient TSH and free T4 as an outpatient. 4. Mixed hyperlipidemia not taking any statin due to her liver cirrhosis. 5. Anxiety disorder. Continue patient on Wellbutrin SR 200 mg in the morning and 100 mg at bedtime, continue mirtazapine 5 to 15 mg orally at bedtime will continue with Xanax as needed. 6. Obesity with obstructive sleep apnea and obesity hypoventilation syndrome [pickwickian syndrome]. continue with her CPAP machine. 7. History of peptic ulcer disease. Continue patient on Protonix 40 mg orally once every day. 8. Bilateral kidney stones. No hydronephrosis appears to be stable at this time. 9. 7 mm right pulmonary nodule. Repeat CT scan of the chest with contrast in 3 months. 10. Dilated common bile duct at 1.1 cm likely chronic due to cholecystectomy. 11. DVT prophylaxis. Lovenox 40 mg subcutaneously every 24 hours. 12. GI prophylaxis. Continue patient on Protonix 40 mg orally once every day. 13. Prognosis is guarded. 14. Continue current diet 15. EGD tomorrow morning. Objective - Vital Signs Vital signs: Vital Signs Temp 98.9 F 09/03/23 19:10 Pulse 81 09/03/23 19:10 Resp 16 09/03/23 19:10 BP 105/57 09/03/23 19:10 Pulse Ox 96 09/03/23 19:10 FiO2 Intake & Output 09/03/23 09/03/23 09/04/23 06:59 18:59 06:59 Intake Total 100 708 Output Total 300 600 Balance -200 108 Intake: Oral 100 708 Output: Urine 300 600 Other: Voiding Method External Catheter - Labs CBC & Chem 7: 09/01/23 13:21 09/02/23 06:16 Labs: Abnormal Lab Results - Last 24 Hours (Table) 09/03/23 Range/Units 08:45 Ammonia 102 H (<30) umol/L
[2023-09-04 08:41] LABS: Basophils # (A) 0.06 X 10*3/uL (0.00-0.10); Basophils % (A) 1.1 %; Eosinophils # (A) 0.16 X 10*3/uL (0.04-0.35); HCT 33.9 % (37.2-46.3); HGB 11.7 g/dL (12.0-15.0); Lymphocytes % (A) 16.9 %; MCH 33.1 pg (27.0-32.0); MCHC 34.5 g/dL (32.0-37.0); Mean Platelet Volume 12.1 FL (9.5-12.2); Monocytes # (A) 0.75 X 10*3/uL (0.20-1.00); NRBC Per 100 WBC 0 X 10*3/uL (0.00-0.01); Neutrophils # (A) 3.46 X 10*3/uL (1.80-7.70); Neutrophils % (A) 64.8 %; Platelet Count 151 X 10*3/uL (140-440); RBC 3.53 X 10*6/uL (4.10-5.20); RDW 13.8 % (11.5-14.5); WBC 5.34 X 10*3/uL (4.50-10.00)
[2023-09-04 09:06] LABS: ALT 26 U/L (8-44); AST 64 U/L (13-35); Albumin 3.1 g/dL (3.8-4.9); Albumin/Globulin Ratio 1.24 Ratio (1.60-3.17); Alkaline Phosphatase 123 U/L (41-126); BUN/Creat Ratio <5.00 Ratio (12.00-20.00); Blood Urea Nitrogen <3.5 mg/dL (9.0-27.0); Calcium 9.9 mg/dL (8.7-10.3); Ceruloplasmin 21.9 mg/dL (20.0-60.0); Chloride 115 mmol/L (96-109); Globulin 2.5 g/dL (1.6-3.3); Glucose 110 mg/dL (70-110); Potassium 3.9 mmol/L (3.5-5.5); Sodium 143 mmol/L (135-145); Total Bilirubin 0.9 mg/dL (0.3-1.2); Total Protein 5.6 g/dL (6.2-8.2)
[2023-09-04 09:15] LABS: Hepatitis A Antibody IgM Nonreactive; Hepatitis B Core IgM Nonreactive; Hepatitis B Surface Antigen Nonreactive; Hepatitis C IgG Antibody Nonreactive
[2023-09-04] MEDS ORDERED: LIDOCAINE 2% (PF) 20 MG/ML 5 ML VIAL ONE (12:13)
[2023-09-04] MEDS ORDERED: PROPOFOL 10 MG/ML 20 ML VIAL IV ONE (12:13)
[2023-09-04] MEDS: SODIUM CHLORIDE 0.9% 500 ML 500 ML IV ONE (12:22)
--- NOTE | 2023-09-04 12:29 | P.PCN ---
Date of Procedure: 09/04/23 Procedure(s) Performed: BRIEF HISTORY: Patient is a 53-year-old, pleasant, white female with history of liver cirrhosis scheduled for an upper endoscopy as a part of evaluation of upper abdominal pain for the last few weeks duration.. She has prior history of peptic ulcer disease diagnosed in 2019. PROCEDURE PERFORMED: Esophagogastroduodenoscopy with biopsy. PREOPERATIVE DIAGNOSIS: Epigastric and upper abdominal pain. IV sedation per anesthesia. PROCEDURE: After informed consent was obtained, the patient was brought into the endoscopy unit. IV sedation was administered by Anesthesia under continuous monitoring. Initially the Olympus GIF-140 video endoscope was inserted into the mouth. Esophagus intubated without any difficulty. It was gradually advanced into the stomach and duodenum and carefully examined. The bulb and the second part of the duodenum appeared normal. The scope at this time was withdrawn to the stomach, adequately insufflated with air, and upon careful examination, mucosa of the antrum, had patchy areas of erythema consistent with gastritis and biopsies were done from this area. body, cardia and the fundus appeared normal. The scope was then withdrawn into the esophagus. The GE junction was located at 39 cm from the incisors. The esophagus appeared normal. Biopsies were done from the distal esophagus. There were no erosions or ulcerations seen and the patient tolerated the procedure well. IMPRESSION: 1. Mild antral gastritis. 2. No evidence of esophagitis or peptic ulcer disease. RECOMMENDATIONS: The findings of this examination were discussed with the patient as well as a family. Follow with the biopsy results. Advance to regular diet. Continue with Protonix daily..
[2023-09-05 05:20] VITALS: RESP 19
[2023-09-05 08:46] LABS: Basophils # (A) 0.09 X 10*3/uL (0.00-0.10); Basophils % (A) 1.2 %; Eosinophils # (A) 0.48 X 10*3/uL (0.04-0.35); Eosinophils % (A) 6.5 %; HCT 35.5 % (37.2-46.3); HGB 12.2 g/dL (12.0-15.0); Lymphocytes # (A) 2.16 X 10*3/uL (0.90-5.00); Lymphocytes % (A) 29.3 %; MCH 32.3 pg (27.0-32.0); MCHC 34.4 g/dL (32.0-37.0); MCV 93.9 FL (80.0-97.0); Mean Platelet Volume 12.1 FL (9.5-12.2); Monocytes # (A) 0.81 X 10*3/uL (0.20-1.00); NRBC Per 100 WBC 0 X 10*3/uL (0.00-0.01); Neutrophils # (A) 3.79 X 10*3/uL (1.80-7.70); Neutrophils % (A) 51.6 %; Platelet Count 151 X 10*3/uL (140-440); RBC 3.78 X 10*6/uL (4.10-5.20); WBC 7.36 X 10*3/uL (4.50-10.00)
[2023-09-05 08:55] LABS: ALT 42 U/L (8-44); AST 142 U/L (13-35); Albumin 3.2 g/dL (3.8-4.9); Alkaline Phosphatase 99 U/L (41-126); BUN/Creat Ratio 5.86 Ratio (12.00-20.00); Blood Urea Nitrogen 4.1 mg/dL (9.0-27.0); Calcium 9.9 mg/dL (8.7-10.3); Carbon Dioxide 20.6 mmol/L (21.6-31.8); Chloride 115 mmol/L (96-109); Globulin 2.9 g/dL (1.6-3.3); Glucose 93 mg/dL (70-110); Potassium 3.5 mmol/L (3.5-5.5); Sodium 144 mmol/L (135-145); Total Bilirubin 2.3 mg/dL (0.3-1.2); Total Protein 6.1 g/dL (6.2-8.2)
--- NOTE | 2023-09-05 11:28 | P.PN ---
Subjective Progress Note Date: 09/05/23 Principal diagnosis: Abdominal pain This is a pleasant 53-year-old female with a past medical history significant for COPD, pickwickian syndrome, schwannoma of the brachial plexus status postsurgical resection, history of pancreatitis, morbid obesity, prior GI bleed with findings of bleeding ulcer who presented to the emergency department with complaints of left lower quadrant/flank pain. Patient states pain comes and goes. Light and is more sharp, kept her up through the night last night. She also had symptoms of nausea and vomiting associated with this pain. Denies any fevers or chills, she has been afebrile. Denies any hematemesis. Last EGD was May [address] Caldwell where she had an EGD with epinephrine administration and Endo Clip placed for active bleeding ulcer in the duodenal sweep. During this hospitalization she had a CT of the abdomen and pelvis with contrast which reports cirrhotic liver morphology. Gastroenterology was consulted for liver cirrhosis and abdominal pain. Patient states she was diagnosed by Dr. Nieto with liver cirrhosis few weeks ago. She denies any history of alcohol use or health alcohol abuse in the past. Patient is morbidly obese and has been for some years. She had elevated ammonia on admission 46 and trending up today with a level at 102. She had mild elevation of her lipase on admission at 375 which is currently now normal. Most recent labs WBC 4.8 hemoglobin 11 platelet count 133,000 sodium 142 potassium 3.7 BUN 4.4 creatinine 0.7 total bilirubin 1.5 AST 60 ALT 21 alkaline phosphatase 92 amylase 26 lipase 43. Tumor AFP marker less than 3. She is currently on lactulose 20 mg twice daily. 09/05/2023 Patient seen and examined today as a follow-up. Patient apparently has been hallucinating throughout the night and in the morning states that there are children and women talking to her and that they have her tablet. Apparently she did not sleep well through the night and was up most of the night concern for the "people" being in her room. She states that she still has some abdominal pain. She has been eating her regular trays, no nausea or vomiting. Most of abdominal pain remains in that left lower abdominal region and flank. Yesterday she underwent EGD with findings of mild gastritis. Ammonia continues to trend down and is 45 today. Patient only had reportedly 2 bowel movements yesterday. Objective - Vital Signs Vital signs: Vital Signs Temp 99.4 F 09/05/23 07:59 Pulse 81 09/05/23 07:59 Resp 19 09/05/23 03:05 BP 133/71 09/05/23 07:59 Pulse Ox 96 09/05/23 07:59 FiO2 Intake & Output 09/04/23 09/05/23 09/05/23 18:59 06:59 18:59 Intake Total 50 Output Total 1900 300 650 Balance -1850 -300 -650 Intake: IV 50 Output: Urine 1900 300 650 Other: Voiding Method Diaper Diaper Incontinent Incontinent External Catheter External Catheter - Exam General appearance: The patient is alert, oriented, appears in no acute distress. HET: Head is normocephalic and atraumatic. Conjunctiva pink. Sclera anicteric. Neck: Supple without lymphadenopathy. Abdomen: Soft, left quadrant tenderness, flank tenderness, nondistended. Extremities: Normal skin color and turgor. No pedal edema Skin: No rashes, no jaundice Neurological: No focal deficits. Alert and oriented. - Labs CBC & Chem 7: 09/05/23 06:17 09/05/23 06:17 Labs: Abnormal Lab Results - Last 24 Hours (Table) 09/04/23 09/04/23 09/05/23 Range/Units 05:57 05:57 06:17 RBC 3.53 L (4.10-5.20) X 10*6/uL Hgb 11.7 L (12.0-15.0) g/dL Hct 33.9 L (37.2-46.3) % MCH 33.1 H (27.0-32.0) pg Chloride 115 H (96-109) mmol/L Carbon Dioxide 20.0 L (21.6-31.8) mmol/L BUN <3.5 L (9.0-27.0) mg/dL BUN/Creatinine Ratio <5.00 L (12.00-20.00) Ratio AST 64 H (13-35) U/L Ammonia 45 H (<30) umol/L Total Protein 5.6 L (6.2-8.2) g/dL Albumin 3.1 L (3.8-4.9) g/dL Albumin/Globulin Ratio 1.24 L (1.60-3.17) Ratio Assessment and Plan (1) Liver cirrhosis Narrative/Plan: 53-year-old female presenting with abdominal pain nausea and vomiting. She had a CT of the abdomen pelvis with contrast reporting cirrhotic morphology of the liver. Patient states she was recently diagnosed by her PCP for liver cirrhosis. She presented with mild elevation in her total bilirubin and AST. Also noted to have elevated ammonia level. No history of alcohol use, patient does have pickwickian syndrome and possible etiology of liver cirrhosis is secondary to obesity and fatty liver, however need to consider other possible etiologies. Will obtain liver serologies and hepatitis panel. Current Visit: Yes Status: Acute Code(s): K74.60 - UNSPECIFIED CIRRHOSIS OF LIVER SNOMED Code(s): 32912329 (2) Abdominal pain Narrative/Plan: Unclear etiology, mostly on the left mid quadrant and flank. He is status post EGD with no real acute findings only some mild gastritis. No evidence of peptic ulcer disease. Consider possibly related to nephrolithiasis, also noted was portosystemic shunting between dilated left ovarian vein communicating with portal venous confluence. Possibility of pelvic congestion/gonadal vein congestion on the left. Consider general surgery consult if further investigation is warranted. Current Visit: Yes Status: Acute Code(s): R10.9 - UNSPECIFIED ABDOMINAL PAIN SNOMED Code(s): 15070510 (3) Hyperammonemia Narrative/Plan: Increase lactulose to 30 g 3 times daily, titrate to have 3-4 bowel movements daily Current Visit: No Status: Acute Code(s): E72.20 - DISORDER OF UREA CYCLE METABOLISM, UNSPECIFIED SNOMED Code(s): 3344359 (4) Left flank pain Current Visit: Yes Status: Acute Code(s): R10.9 - UNSPECIFIED ABDOMINAL PAIN SNOMED Code(s): 088558848 (5) Morbid obesity Narrative/Plan: Recommend weight loss Current Visit: No Status: Acute Code(s): E66.01 - MORBID (SEVERE) OBESITY DUE TO EXCESS CALORIES SNOMED Code(s): 902833013 (6) Nephrolithiasis Current Visit: No Status: Acute Code(s): N20.0 - CALCULUS OF KIDNEY SNOMED Code(s): 14642355 Plan: 1. Continue symptomatic and supportive care 2. Liver serologies and hepatitis panel ordered and reviewed 3. Repeat daily ammonia level 4. Increase lactulose to 30 g 3 times daily, nursing instructed to give second dose this morning if patient had no bowel movement needs to have 3-4 bowel movements daily 5. She is status post EGD with mild gastritis 6. Consider possible psychiatric evaluation regarding hallucinations 7. Consider possible general surgery consultation for abdominal pain if you feel it is warranted for further investigation 8. Discussed with patient will need to follow-up with gastroenterology as an outpatient to follow-up for liver surveillance Thank you for this consultation, she is cleared from gastroenterology for discharge. We will sign off at this time. Dr. Kushal Rodgers I agree with the dictator's note, documented as a scribe by Anne Patricio.
--- NOTE | 2023-09-05 15:17 | P.PN ---
Subjective Progress Note Date: 09/04/23 HISTORY OF PRESENT ILLNESS: This is a 53-year-old female with a previous medical history signif icant for hypertension and hypertensive cardiovascular disease, history of obesity with obstructive sleep apnea and obesity hypoventilation syndrome ( pickwickian syndrom), history of peptic ulcer disease status post EGD 06/05/2020 with Endo Clip and gold probe ablation, history of schwannoma of the left brachial praxis status post surgical intervention that resulted in chronic regional pain syndrome [reflex sympathetic dystrophy], history of liver cirrhosis patient has been cared for by Dr. Rodgers but she has not seen her in 4 years, patient comes to the office only twice a year with her who is the primary caregiver for her she is wheelchair-bound and bedbound, not ambulatory at all, patient presented to the emergency department at [facility] yesterday with left upper quadrant abdominal pain associated with nausea and vomiting, she is stated that she has been throwing up bile since last Sunday, and she is not able to keep things down, patient underwent multiple laboratory evaluation that showed evidence of slight elevation of the lipase and ammonia level, the rest of the laboratory evaluation were normal, she did receive the pain management in the form of morphine as well as Norflex IV, and she ended up going for a CT scan of the abdomen and pelvis that showed evidence of liver cirrhosis with chronic portal venous hypertension and possible portal vein thrombosis, portosystemic shunting between the ovarian vein and portal vein, there was also evidence of 3 right kidney stones without evidence of hydronephrosis the largest one 1.7 and there is evidence of 1 in the left side, there is also 7 mm right lower lobe pulmonary nodule, patient also was found to have a 1.1 cm dilated, bile duct could be related to her cholecystectomy appears to be chronic, patient was admitted to the hospital for further evaluation and hopefully she will be able to discharge home tomorrow morning and 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 09/02: Patient is feeling a bit better today, she continues to be laying down in bed in no apparent distress, she was seen earlier by gastroenterology we will continue with current treatment plan, she continues to tolerate soft diet, laboratory evaluation were reviewed, patient is scheduled to go for an EGD tomorrow morning for further evaluation and recommendation by gastroenterology, it was recommended also to increase her lactulose to 3 times every day monitor ammonia level on a daily basis 09/03: Patient is lying down in bed in no apparent distress, she is feeling a bit better today, she continues to have some pain in the left upper quadrant, she underwent EGD with Dr. Moore today that showed evidence of gastritis otherwise was negative, she denies any chest pain at this time she has no shortness of breath, she seems to be tolerating treatment very well, patient did have a battery of testing including hepatitis panel A, B, and C they were negative, she did have alpha 1 antitrypsin came back negative, she also did have an TRENT and autoimmune panel that was negative as well, we will continue with lactulose 30 mL orally 3 times every day, continue to monitor the patient ammonia level tomorrow morning, if her labs are better she can be discharged home tomorrow and follow-up with us as an outpatient. REVIEW OF SYSTEMS: Constitutional: No documented fever, no chills, no night sweats. No weight jason nge. No weakness, fatigue or lethargy. No daytime sleepiness. EENT: No headache. No blurred vision or double vision, no loss of vision. No loss of Hearing, no ringing in the ears, no dizziness. No nasal drainage or congestion. No epistaxis. No sore throat. Lungs: No shortness of breath, no cough, no sputum production. No wheezing. Reports dyspnea with activity. Cardiovascular: No chest pain, no lower extremity edema. No palpitations. No paroxysmal nocturnal dyspnea. No orthopnea. No lightheadedness or dizziness. No syncopal episodes. Abdominal: Reports abdominal pain. no Nausea, vomiting. No diarrhea. No constipation. No bloody or tarry stools reports loss of appetite. Genitourinary: No dysuria, increased frequency, urgency. No urinary retention. Musculoskeletal: No myalgias. No muscle weakness, positive for gait dysfunction, no frequent falls. No back pain. No neck pain.left arm pain Integumentary: No wounds, no lesions. No rash or pruritus. No unusual bruisin g. No change in hair or nails. Neurologic: No aphasia. No facial droop. No change in mentation. No head injury. No headache. No paralysis. No paresthesia. Psychiatric: No depression. positive for anxiety. No mood swings. Endocrine: No abnormal blood sugars. No weight change. PHYSICAL EXAMINATION: General: 53-year-old female laying down in bed in no apparent distress HEENT: Head is atraumatic, normocephalic, pupils were equal round reactive to light and recommendation, extraocular muscle movement were intact, sclera nonicteric, conjunctivae were pale, mucous membranes of the mouth are somewhat dry. Neck: Supple, no JVP, normal carotid upstroke bilaterally, no lymphadenopathy. Chest: Decreased breath sounds at the bases, few rhonchi, no expiratory wheezes, no chest wall tenderness, no intercostal retractions. Heart: First heart sound is normal, second heart sound is normal there is systolic ejection murmur 2/6 located in the left sternal border. Abdomen: Soft, mild left upper quadrant tenderness, nondistended, positive bowel sounds. Extremities: There is no edema no calf tenderness DP +2 bilaterally. Neurologic examination: Patient is awake alert and oriented x3 , cranial nerves II-12 appear grossly intact, muscle power were 5 out of 5 in upper extremities and 5 out of 5 in bilateral lower extremities, deep tendon reflexes normal bilaterally. ASSESSMENT AND PLAN: 1. Left upper quadrant abdominal pain likely related to underlying liver cirrhosis, possible portal vein hypertension and chronic portal vein thrombus rule out pancreatic duct stenosis especially with elevated lipase. This appears to be a chronic does not appear to be an acute situation at this point in time, patient already has her pain management in place, she has been getting morphine sulfate extended release and for breakthrough pain, will continue with that follow-up with her pain management doctor, she will need to follow-up with gastroenterology as an outpatient for further recommendation. Continue patient on lactulose 20 g / 30 mL orally twice every day, continue clear liquid diet, start the patient on IV fluid resuscitation in the form of D5 half-normal saline at 75 cc an hour, GI consultation appreciated, patient did have EGD today that showed evidence of minimal gastritis otherwise was negative. 2. Hypertension and hypertensive cardiovascular disease. Continue patient on metoprolol 25 mg orally twice every day, continue losartan 50 mg at bedtime, monitor the patient blood pressure very closely. 3. Hypothyroidism. Continue patient on Synthroid 50 mcg orally once every day, monitor the patient TSH and free T4 as an outpatient. 4. Mixed hyperlipidemia not taking any statin due to her liver cirrhosis. 5. Anxiety disorder. Continue patient on Wellbutrin SR 200 mg in the morning and 100 mg at bedtime, continue mirtazapine 5 to 15 mg orally at bedtime will continue with Xanax as needed. 6. Obesity with obstructive sleep apnea and obesity hypoventilation syndrome [pickwickian syndrome]. continue with her CPAP machine. 7. History of peptic ulcer disease. Continue patient on Protonix 40 mg orally once every day. EGD was done today. And that showed evidence of minimal gastritis. 8. Bilateral kidney stones. No hydronephrosis appears to be stable at this time. 9. 7 mm right pulmonary nodule. Repeat CT scan of the chest with contrast in 3 months. 10. Dilated common bile duct at 1.1 cm likely chronic due to cholecystectomy. 11. DVT prophylaxis. Lovenox 40 mg subcutaneously every 24 hours. 12. GI prophylaxis. Continue patient on Protonix 40 mg orally once every day. 13. Prognosis is guarded. 14. Continue current diet 15. Hopefully home tomorrow morning if okay with gastroenterology. Objective - Vital Signs Vital signs: Vital Signs Temp 98.5 F 09/04/23 07:00 Pulse 93 09/04/23 07:00 Resp 15 09/04/23 02:00 BP 151/52 09/04/23 07:00 Pulse Ox 98 09/04/23 07:00 FiO2 Intake & Output 09/03/23 09/04/23 09/04/23 18:59 06:59 18:59 Intake Total 708 50 Output Total 600 1900 Balance 108 -1850 Intake: IV 50 Oral 708 Output: Urine 600 1900 Other: Voiding Method External Catheter Diaper Incontinent External Catheter # Voids 0 2 # Bowel Movements 0 2 - Labs CBC & Chem 7: 09/04/23 05:57 09/04/23 05:57 Labs: Abnormal Lab Results - Last 24 Hours (Table) 09/04/23 09/04/23 09/04/23 Range/Units 05:57 05:57 05:57 RBC 3.53 L (4.10-5.20) X 10*6/uL Hgb 11.7 L (12.0-15.0) g/dL Hct 33.9 L (37.2-46.3) % MCH 33.1 H (27.0-32.0) pg Chloride 115 H (96-109) mmol/L Carbon Dioxide 20.0 L (21.6-31.8) mmol/L BUN <3.5 L (9.0-27.0) mg/dL BUN/Creatinine Ratio <5.00 L (12.00-20.00) Ratio AST 64 H (13-35) U/L Ammonia 55 H (<30) umol/L Total Protein 5.6 L (6.2-8.2) g/dL Albumin 3.1 L (3.8-4.9) g/dL Albumin/Globulin Ratio 1.24 L (1.60-3.17) Ratio
--- NOTE | 2023-09-05 15:19 | P.DS ---
Providers Date of admission: 09/03/23 15:40 Expected date of discharge: 09/05/23 Attending physician: Erma Nieto Consults: 09/01/23 13:12 Consult Physician Routine Consulting Provider: Georgina Rodgers Consult Reason/Comments: Liver cirrhosis/ Abdominal pain Do you want consulting provider notified?: Yes Primary care physician: Erma Nieto Hospital Course: HISTORY OF PRESENT ILLNESS: This is a 53-year-old female with a previous medical history significant for hypertension and hypertensive cardiovascular disease, history of obesity with obstructive sleep apnea and obesity hypoventilation syndrome ( pickwickian syndrom), history of peptic ulcer disease status post EGD 06/05/2020 with Endo Clip and gold probe ablation, history of schwannoma of the left brachial praxis status post surgical intervention that resulted in chronic regional pain syndrome [reflex sympathetic dystrophy], history of liver cirrhosis patient has been cared for by Dr. Rodgers but she has not seen her in 4 years, patient comes to the office only twice a year with her who is the primary caregiver for her she is wheelchair-bound and bedbound, not ambulatory at all, patient presented to the emergency department at [facility] yesterday with left upper quadrant abdominal pain associated with nausea and vomiting, she is stated that she has been throwing up bile since last Sunday, and she is not able to keep things down, patient underwent multiple laboratory evaluation that showed evidence of slight elevation of the lipase and ammonia level, the rest of the laboratory evaluation were normal, she did receive the pain management in the form of morphine as well as Norflex IV, and she ended up going for a CT scan of the abdomen and pelvis that showed evidence of liver c irrhosis with chronic portal venous hypertension and possible portal vein thrombosis, portosystemic shunting between the ovarian vein and portal vein, there was also evidence of 3 right kidney stones without evidence of hydronephrosis the largest one 1.7 and there is evidence of 1 in the left side, there is also 7 mm right lower lobe pulmonary nodule, patient also was found to have a 1.1 cm dilated, bile duct could be related to her cholecystectomy appears to be chronic, patient was admitted to the hospital for further evaluation and hopefully she will be able to discharge home tomorrow morning and 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 09/02: Patient is feeling a bit better today, she continues to be laying down in bed in no apparent distress, she was seen earlier by gastroenterology we will continue with current treatment plan, she continues to tolerate soft diet, la boratory evaluation were reviewed, patient is scheduled to go for an EGD tomorrow morning for further evaluation and recommendation by gastroenterology, it was recommended also to increase her lactulose to 3 times every day monitor ammonia level on a daily basis 09/03: Patient is lying down in bed in no apparent distress, she is feeling a bit better today, she continues to have some pain in the left upper quadrant, she underwent EGD with Dr. Moore today that showed evidence of gastritis otherwise was negative, she denies any chest pain at this time she has no shortness of breath, she seems to be tolerating treatment very well, patient did have a battery of testing including hepatitis panel A, B, and C they were negative, she did have alpha 1 antitrypsin came back negative, she also did have an TRENT and autoimmune panel that was negative as well, we will continue with lactulose 30 mL orally 3 times every day, continue to monitor the patient ammonia level tomorrow morning, if her labs are better she can be discharged home tomorrow and follow-up with us as an outpatient. Discharge diagnoses: 1. Left upper quadrant abdominal pain likely related to underlying liver cirrhosis, possible portal vein hypertension and chronic portal vein thrombus rule out pancreatic duct stenosis especially with elevated lipase. 2. S/p EGD that showed Gastritis 3. Hypertension and hypertensive cardiovascular disease. 4. Hypothyroidism. 5. Mixed hyperlipidemia 6. Anxiety disorder. 7. Obesity with obstructive sleep apnea and obesity hypoventilation syndrome [pickwickian syndrome]. 8. History of peptic ulcer disease. 9. Bilateral kidney stones. 10. 7 mm right pulmonary nodule. 11. Dilated common bile duct at 1.1 cm likely chronic due to cholecystectomy. 12. Hepatic encephalopathy due to elevated ammonia level better. Patient Condition at Discharge: Fair Plan - Discharge Summary New Discharge Prescriptions: New Pantoprazole [Protonix] 40 mg PO DAILY #15 tab Ondansetron Odt [Zofran Odt] 4 mg PO Q8HR PRN #20 tab PRN Reason: Nausea And Vomiting No Action Metoprolol Tartrate [Lopressor] 25 mg PO BID #60 tab Mirtazapine [Remeron] 15 mg PO HS #30 tablet Levothyroxine Sodium [Synthroid] 50 mcg PO DAILY Morphine Sulfate ER [Ms Contin] 60 mg PO Q12HR #6 tab Vitamin C(Unknown Dose) 1 tab PO DAILY Multivit with Calcium,Iron,Min [Women's Multivitamin] 1 tab PO DAILY Cholecalciferol [Vitamin D3 (25 Mcg = 1000 Iu)] 50 mcg PO DAILY buPROPion SR [Wellbutrin SR] 100 mg PO DAILY ALPRAZolam [Xanax] 0.25 mg PO BID PRN PRN Reason: Anxiety Lactulose [Cephulac] 20 gm PO DAILY Losartan Potassium 50 mg PO HS buPROPion SR [Wellbutrin SR] 200 mg PO HS Morphine Sulfate Ir [MSIR] 15 mg PO BID PRN PRN Reason: Breakthrough Pain Discharge Medication List Metoprolol Tartrate [Lopressor] 25 mg PO BID #60 tab 07/28/16 [Rx] Mirtazapine [Remeron] 15 mg PO HS #30 tablet 07/28/16 [Rx] Levothyroxine Sodium [Synthroid] 50 mcg PO DAILY 06/04/20 [History] Morphine Sulfate ER [Ms Contin] 60 mg PO Q12HR #6 tab 06/10/20 [Rx] ALPRAZolam [Xanax] 0.25 mg PO BID PRN 08/31/23 [History] Cholecalciferol [Vitamin D3 (25 Mcg = 1000 Iu)] 50 mcg PO DAILY 08/31/23 [History] Lactulose [Cephulac] 20 gm PO DAILY 08/31/23 [History] Losartan Potassium 50 mg PO HS 08/31/23 [History] Morphine Sulfate Ir [MSIR] 15 mg PO BID PRN 08/31/23 [History] Multivit with Calcium,Iron,Min [Women's Multivitamin] 1 tab PO DAILY 08/31/23 [History] Ondansetron Odt [Zofran Odt] 4 mg PO Q8HR PRN #20 tab 08/31/23 [Rx] Pantoprazole [Protonix] 40 mg PO DAILY #15 tab 08/31/23 [Rx] Vitamin C(Unknown Dose) 1 tab PO DAILY 08/31/23 [History] buPROPion SR [Wellbutrin SR] 100 mg PO DAILY 08/31/23 [History] buPROPion SR [Wellbutrin SR] 200 mg PO HS 08/31/23 [History] Follow up Appointment(s)/Referral(s): Erma Nieto MD [Primary Care Provider] - 1-2 days Noemy Agudelo NPC [REFERRING] - 2 Weeks (New diagnosis cirrhosis of the liver, hyperamonemia)
[2023-09-05 15:50] VITALS: BP 119/70; PULSE 83; TEMP 99.2
== END 2023-09-05 17:21 | disposition home health service (06) | DRG 441 ==
LOC: EC 15:39 → 6NMEDSUR 21:40 → OBSVTOIN 09-03 15:40
PROVIDERS: ADMIT Internal Medicine; ATTEND Internal Medicine
PROC: 0DB78ZX Excision of Stomach, Pylorus, Via Natural or Artificial Opening Endoscopic, Diagnostic (ICD-10-PCS; principal; 2023-09-04 11:55)
DX: K76.6 Portal hypertension (principal); I81 Portal vein thrombosis; E66.2 Morbid (severe) obesity with alveolar hypoventilation; Z68.41 Body mass index [BMI] 40.0-44.9, adult; G90.512 Complex regional pain syndrome I of left upper limb; K74.69 Other cirrhosis of liver; E03.9 Hypothyroidism, unspecified; K29.70 Gastritis, unspecified, without bleeding; E78.2 Mixed hyperlipidemia; F32.A Depression, unspecified; F41.9 Anxiety disorder, unspecified; G89.4 Chronic pain syndrome; I11.9 Hypertensive heart disease without heart failure; Z87.11 Personal history of peptic ulcer disease; Z28.311 Partially vaccinated for COVID-19; K76.82 Hepatic encephalopathy; N20.0 Calculus of kidney; R26.9 Unspecified abnormalities of gait and mobility; Z87.440 Personal history of urinary (tract) infections; Z86.14 Personal history of Methicillin resistant Staphylococcus aureus infection; Z90.49 Acquired absence of other specified parts of digestive tract; K83.8 Other specified diseases of biliary tract; R91.8 Other nonspecific abnormal finding of lung field; Z79.890 Hormone replacement therapy; Z79.899 Other long term (current) drug therapy; Z82.49 Family history of ischemic heart disease and other diseases of the circulatory system; Z83.3 Family history of diabetes mellitus; Z87.442 Personal history of urinary calculi; Z88.0 Allergy status to penicillin; Z88.6 Allergy status to analgesic agent; Z88.1 Allergy status to other antibiotic agents
CPT/HCPCS: 36415; 43239; 74177; 80053; 80074; 81001; 82103; 82105; 82140; 82150; 82390; 83516; 83605; 83690; 84484; 85025; 86038; 88305; 93005; 96361; 96372; 96374; 96375; 96376; 99285

== ENCOUNTER 2024-03-21 21:44 | Emergency (ER) | payer MEDICARE, OTHER ==
[2024-03-21 22:03] VITALS: TEMP 98.3
--- NOTE | 2024-03-21 23:38 | ED ---
Abdominal Pain HPI - General Chief Complaint: Abdominal Pain Stated Complaint: Abd Pain Time Seen by Provider: 03/21/24 22:02 Source: patient, RN notes reviewed Mode of arrival: wheelchair Limitations: no limitations - History of Present Illness Initial Comments: This is a 54-year-old female presents emergency department with chief complaint of diffuse abdominal pain that has been present over the past few weeks however has worsened over the past few days. She is concerned that she may be constipated. Patient states that she has a history of elevated ammonia levels and has taken lactulose in the past to aid in elevated ammonia levels and constipation. Patient states that her last bowel movement was 2 days ago. She endorses feelings of nausea with no vomiting. States that she feels dehydrated. Has a history of colon resection on her abdomen. - Related Data Home Medications Medication Instructions Recorded Confirmed Levothyroxine Sodium [Synthroid] 50 mcg PO DAILY 06/04/20 08/31/23 ALPRAZolam [Xanax] 0.25 mg PO BID PRN 08/31/23 08/31/23 Cholecalciferol [Vitamin D3 (25 50 mcg PO DAILY 08/31/23 08/31/23 Mcg = 1000 Iu)] Losartan Potassium 50 mg PO HS 08/31/23 08/31/23 Morphine Sulfate Ir [MSIR] 15 mg PO BID PRN 08/31/23 08/31/23 Multivit with Calcium,Iron,Min 1 tab PO DAILY 08/31/23 08/31/23 [Women's Multivitamin] Vitamin C(Unknown Dose) 1 tab PO DAILY 08/31/23 08/31/23 buPROPion SR [Wellbutrin SR] 100 mg PO DAILY 08/31/23 08/31/23 buPROPion SR [Wellbutrin SR] 200 mg PO HS 08/31/23 08/31/23 Previous Rx's Medication Instructions Recorded Metoprolol Tartrate [Lopressor] 25 mg PO BID #60 tab 07/28/16 Mirtazapine [Remeron] 15 mg PO HS #30 tablet 07/28/16 Morphine Sulfate ER [Ms Contin] 60 mg PO Q12HR #6 tab 06/10/20 Ondansetron Odt [Zofran Odt] 4 mg PO Q8HR PRN #20 tab 08/31/23 Pantoprazole [Protonix] 40 mg PO DAILY #15 tab 08/31/23 Lactulose [Cephulac] 30 gm PO TID #4050 ml 09/05/23 Cephalexin [Keflex] 500 mg PO Q6HR #40 cap 03/22/24 Allergies Allergy/AdvReac Type Severity Reaction Status Date / Time aspirin Allergy Unknown Verified 06/04/20 07:57 ciprofloxacin [From Cipro] Allergy Swelling Verified 06/04/20 07:57 ciprofloxacin HCl Allergy Swelling Verified 06/04/20 07:57 [From Cipro] levofloxacin [From Levaquin] Allergy Rash/Hives Verified 06/04/20 07:57 Penicillins Allergy Rash/Hives Verified 06/04/20 07:57 Review of Systems ROS Statement: Those systems with pertinent positive or pertinent negative responses have been documented in the HPI. ROS Other: All systems not noted in ROS Statement are negative. 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 complicated by a wrist drop and chronic contractures and muscle atrophy in the left upper extremity, complex regional pain syndrome, reflex sympathetic dystrophy, pancreatitis, morbid obesity, history of hemorrhagic cystitis, history of chronic pain, history of GI bleeds, cellulitis, septic in 2016 [facility] History of Any Multi-Drug Resistant Organisms: MRSA Date of last positivie culture/infection: 07/20/16 MDRO Source:: Urine Past Surgical History: Appendectomy, Section, Cholecystectomy Additional Past Surgical History / Comment(s): bowel resection, breast reduction, bilateral ACL repair, left brachial tumor biopsy and lymph node removed, bilateral knee surgery Past Anesthesia/Blood Transfusion Reactions: No Reported Reaction Past Psychological History: Depression Smoking Status: Former smoker Past Alcohol Use History: None Reported Past Drug Use History: None Reported - Past Family History Daughter(s) Family Medical History: No Reported History Father Family Medical History: Diabetes Mellitus Additional Family Medical History / Comment(s): GOUT- ANY OTHER HS UNK Mother Additional Family Medical History / Comment(s): of LUNG DISEASE General Exam Limitations: no limitations General appearance: alert, in no apparent distress, obese Eye exam: Present: normal appearance, PERRL, EOMI. Absent: scleral icterus, conjunctival injection, periorbital swelling ENT exam: Present: normal exam, mucous membranes moist Neck exam: Present: normal inspection. Absent: tenderness, meningismus, lymphadenopathy Respiratory exam: Present: normal lung sounds bilaterally. Absent: respiratory distress, wheezes, rales, rhonchi, stridor Cardiovascular Exam: Present: regular rate, normal rhythm, normal heart sounds. Absent: systolic murmur, diastolic murmur, rubs, gallop, clicks GI/Abdominal exam: Present: soft, tenderness (diffuse), normal bowel sounds. Absent: distended, guarding, rebound, rigid Extremities exam: Present: normal inspection, full ROM, normal capillary refill. Absent: tenderness, pedal edema, joint swelling, calf tenderness Back exam: Present: normal inspection Skin exam: Present: warm, dry, intact, normal color. Absent: rash Course Vital Signs 03/21/24 03/22/24 03/22/24 21:58 01:26 03:21 Temperature 98.3 F Pulse Rate 70 73 83 Respiratory 18 18 19 Rate Blood Pressure 117/64 112/53 116/67 O2 Sat by Pulse 99 98 98 Oximetry Medical Decision Making - Medical Decision Making Was pt. sent in by a medical professional or institution (, PA, LIFE SCIENCES MANAGER, urgent care, hospital, or long-term...) When possible be specific @ -No Did you speak to anyone other than the patient for history (EMS, parent, family, police, friend...)? What history was obtained from this source @ -No Did you review nursing and triage notes (agree or disagree)? Why? @ -I reviewed and agree with nursing and triage notes Were old charts reviewed (outside hosp., previous admission, EMS record, old EKG, old radiological studies, urgent care reports/EKG's, long-term records)? Report findings @ -No old charts were reviewed Differential Diagnosis (chest pain, altered mental status, abdominal pain women, abdominal pain men, vaginal bleeding, weakness, fever, dyspnea, syncope, headache, dizziness, GI bleed, back pain, seizure, CVA, palpatations, mental health, musculoskeletal)? @ -Differential Abdominal Pain Women: Appendicitis, Cholecystitis, diverticulosis, ischemic bowel, pancreatitis, hepatitis, UTI, gastroenteritis, AAA, incarcerated hernia, bowel obstruction, constipation, inflammatory bowel, hepatitis, peptic ulcer disease, splenic infarction, perforated viscus, vulvitis, ovarian torsion, PID, kidney stone, placenta abruption, this is not meant to be an all-inclusive list EKG interpreted by me (3pts min.). @ -None X-rays interpreted by me (1pt min.). @ -None done CT interpreted by me (1pt min.). @ - CT of the abdomen and pelvis with IV contrast reveals mild fecal retention with nonobstructing bilateral renal stones and diverticulosis without diverticulitis U/S interpreted by me (1pt. min.). @ -None done What testing was considered but not performed or refused? (CT, X-rays, U/S, labs)? Why? @ -None What meds were considered but not given or refused? Why? @ -None Did you discuss the management of the patient with other professionals (professionals i.e. , PA, LIFE SCIENCES MANAGER, lab, RT, psych nurse, outreach and education social worker, looper operator, teacher, business enterprise officer, shoe caser)? Give summary @ -No Was smoking cessation discussed for >3mins.? @ -No Was critical care preformed (if so, how long)? @ -No Were there social determinants of health that impacted care today? How? (Homelessness, low income, unemployed, alcoholism, drug addiction, tr ansportation, low edu. Level, literacy, decrease access to med. care, senior care, rehab)? @ -No Was there de-escalation of care discussed even if they declined (Discuss DNR or withdrawal of care, Hospice)? DNR status @ -No What co-morbidities impacted this encounter? (DM, HTN, Smoking, COPD, CAD, Cancer, CVA, ARF, Chemo, Hep., AIDS, mental health diagnosis, sleep apnea, morbid obesity)? @ -None Was patient admitted / discharged? Hospital course, mention meds given and route, prescriptions, significant lab abnormalities, going to OR and other pertinent info. @ -Discharged. 54-year-old female with abdominal pain. Patient's vitals are stable upon arrival. Physical examination reveals diffuse abdominal pain to palpation. She is symptomatically treated with pain medications and antiemetics pending laboratory results and CT imaging. Patient is due with this plan. CBC and CMP grossly unremarkable, urinalysis remarkable for infection including nitrites white blood cell and white blood cell clumps, mildly elevated at 47 which appears to be chronic for the patient in relation to previous laboratory studies. CT unremarkable for acute process. Patient is offered multiple avenues for constipation however she has declined all and states that she will take her lactulose at home as provided and follow-up with her primary care provider outpatient next week for further evaluation. Patient is provided with dose of Rocephin in the emergency department and we sent full course of Keflex for urinary tract infection, additionally urine is sent for culture. Discussed with Dr. Jurado Undiagnosed new problem with uncertain prognosis? @ -No Drug Therapy requiring intensive monitoring for toxicity (Heparin, Nitro, Insulin, Cardizem)? @ -No Were any procedures done? @ -No Diagnosis/symptom? @ -Abdominal pain, constipation, urinary tract infection Acute, or Chronic, or Acute on Chronic? @ -Acute Uncomplicated (without systemic symptoms) or Complicated (systemic symptoms)? @ -Uncomplicated Side effects of treatment? @ -No Exacerbation, Progression, or Severe Exacerbation? @ -No Poses a threat to life or bodily function? How? (Chest pain, [place], [place], pneumonia, PE, COPD, DKA, ARF, appy, cholecystitis, CVA, Diverticulitis, Homicidal, Suicidal, threat to staff... and all critical care pts) @ -No - Lab Data Result diagrams: 03/21/24 23:38 03/21/24 23:38 Lab Results 03/21/24 03/21/24 03/21/24 Range/Units 23:24 23:38 23:38 WBC 4.7 (3.8-10.6) k/uL RBC 3.44 L (3.80-5.40) m/uL Hgb 11.3 L (11.4-16.0) gm/dL Hct 34.6 (34.0-46.0) % MCV 100.7 H (80.0-100.0) fL MCH 32.9 (25.0-35.0) pg MCHC 32.7 (31.0-37.0) g/dL RDW 13.6 (11.5-15.5) % Plt Count 135 L (150-450) k/uL MPV 9.5 Neutrophils % 64 % Lymphocytes % 19 % Monocytes % 8 % Eosinophils % 6 % Basophils % 0 % Neutrophils # 3.0 (1.3-7.7) k/uL Lymphocytes # 0.9 L (1.0-4.8) k/uL Monocytes # 0.4 (0-1.0) k/uL Eosinophils # 0.3 (0-0.7) k/uL Basophils # 0.0 (0-0.2) k/uL Hypochromasia Slight Macrocytosis Slight Sodium 137 (137-145) mmol/L Potassium 6.0 H (3.5-5.1) mmol/L Chloride 113 H (98-107) mmol/L Carbon Dioxide 23 (22-30) mmol/L Anion Gap 1 mmol/L BUN 11 (7-17) mg/dL Creatinine 0.75 (0.52-1.04) mg/dL Est GFR (CKD-EPI)AfAm >90 (>60 ml/min/1.73 sqM) Est GFR (CKD-EPI)NonAf >90 (>60 ml/min/1.73 sqM) Glucose 82 (74-99) mg/dL Calcium 9.9 (8.4-10.2) mg/dL Total Bilirubin 1.5 H (0.2-1.3) mg/dL AST 60 H (14-36) U/L ALT 16 (4-34) U/L Alkaline Phosphatase 111 (38-126) U/L Ammonia (<30) umol/L Total Protein 5.8 L (6.3-8.2) g/dL Albumin 2.8 L (3.5-5.0) g/dL Amylase 40 (30-110) U/L Lipase 192 (23-300) U/L Urine Color Light Yellow Urine Appearance Cloudy H (Clear) Urine pH 8.0 (5.0-8.0) Ur Specific [place] 1.012 (1.001-1.035) Urine Protein Trace H (Negative) Urine Glucose (UA) Negative (Negative) Urine Ketones Negative (Negative) Urine Blood Small H (Negative) Urine Nitrite Positive H (Negative) Urine Bilirubin Negative (Negative) Urine Urobilinogen <2.0 (<2.0) mg/dL Ur Leukocyte Esterase Large H (Negative) Urine RBC 58 H (0-5) /hpf Urine WBC 79 H (0-5) /hpf Urine WBC Clumps Many H (None) /hpf Ur Squamous Epith Cells 17 H (0-4) /hpf Urine Bacteria Many H (None) /hpf Urine Mucus Rare H (None) /hpf 03/22/24 Range/Units 02:35 WBC (3.8-10.6) k/uL RBC (3.80-5.40) m/uL Hgb (11.4-16.0) gm/dL Hct (34.0-46.0) % MCV (80.0-100.0) fL MCH (25.0-35.0) pg MCHC (31.0-37.0) g/dL RDW (11.5-15.5) % Plt Count (150-450) k/uL MPV Neutrophils % % Lymphocytes % % Monocytes % % Eosinophils % % Basophils % % Neutrophils # (1.3-7.7) k/uL Lymphocytes # (1.0-4.8) k/uL Monocytes # (0-1.0) k/uL Eosinophils # (0-0.7) k/uL Basophils # (0-0.2) k/uL Hypochromasia Macrocytosis Sodium (137-145) mmol/L Potassium (3.5-5.1) mmol/L Chloride (98-107) mmol/L Carbon Dioxide (22-30) mmol/L Anion Gap mmol/L BUN (7-17) mg/dL Creatinine (0.52-1.04) mg/dL Est GFR (CKD-EPI)AfAm (>60 ml/min/1.73 sqM) Est GFR (CKD-EPI)NonAf (>60 ml/min/1.73 sqM) Glucose (74-99) mg/dL Calcium (8.4-10.2) mg/dL Total Bilirubin (0.2-1.3) mg/dL AST (14-36) U/L ALT (4-34) U/L Alkaline Phosphatase (38-126) U/L Ammonia 47 H (<30) umol/L Total Protein (6.3-8.2) g/dL Albumin (3.5-5.0) g/dL Amylase (30-110) U/L Lipase (23-300) U/L Urine Color Urine Appearance (Clear) Urine pH (5.0-8.0) Ur Specific [place] (1.001-1.035) Urine Protein (Negative) Urine Glucose (UA) (Negative) Urine Ketones (Negative) Urine Blood (Negative) Urine Nitrite (Negative) Urine Bilirubin (Negative) Urine Urobilinogen (<2.0) mg/dL Ur Leukocyte Esterase (Negative) Urine RBC (0-5) /hpf Urine WBC (0-5) /hpf Urine WBC Clumps (None) /hpf Ur Squamous Epith Cells (0-4) /hpf Urine Bacteria (None) /hpf Urine Mucus (None) /hpf Disposition Clinical Impression: Constipation, Abdominal pain, UTI (urinary tract infection) Disposition: HOME SELF-CARE Condition: Good Instructions (If sedation given, give patient instructions): Constipation (ED), Urinary Tract Infection in Women (DC) Additional Instructions: Return to the emergency department for any new or worsening symptoms. Recommend that you continue full course of antibiotics as prescribed outpatient for urinary tract infection. Continue to take lactulose at home for diarrhea relief. Follow-up with your primary care provider next week for further evaluation. Prescriptions: Cephalexin [Keflex] 500 mg PO Q6HR #40 cap Is patient prescribed a controlled substance at d/c from ED?: No Referrals: Erma Nieto MD [Primary Care Provider] - 1-2 days Time of Disposition: 03:08
[2024-03-21] MEDS: ONDANSETRON 4 MG/2 ML VIAL IVP STA (23:47)
[2024-03-21 23:51] LABS: Basophils % (A) 0 %; Eosinophils # (A) 0.3 k/uL (0-0.7); Eosinophils % (A) 6 %; HCT 34.6 % (34.0-46.0); HGB 11.3 gm/dL (11.4-16.0); Hypochromasia Slight; Lymphocytes # (A) 0.9 k/uL (1.0-4.8); Lymphocytes % (A) 19 %; MCH 32.9 pg (25.0-35.0); MCHC 32.7 g/dL (31.0-37.0); MCV 100.7 fL (80.0-100.0); Macrocytosis Slight; Mean Platelet Volume 9.5; Monocytes # (A) 0.4 k/uL (0-1.0); Monocytes % (A) 8 %; Neutrophils % (A) 64 %; Platelet Count 135 k/uL (150-450); RBC 3.44 m/uL (3.80-5.40); RDW 13.6 % (11.5-15.5); WBC 4.7 k/uL (3.8-10.6)
[2024-03-21] MEDS: MORPHINE SULFATE 4 MG/ML SYRINGE IVP STA (23:53)
[2024-03-22 00:01] LABS: ALT 16 U/L (4-34); African American GFR (CKD) >90 (>60 ml/min/1.73 sqM); Amylase 40 U/L (30-110); Anion Gap 1 mmol/L; Blood Urea Nitrogen 11 mg/dL (7-17); Calcium 9.9 mg/dL (8.4-10.2); Carbon Dioxide 23 mmol/L (22-30); Chloride 113 mmol/L (98-107); Glucose 82 mg/dL (74-99); Lipase 192 U/L (23-300); Non-African American GFR(CKD) >90 (>60 ml/min/1.73 sqM); Sodium 137 mmol/L (137-145); Total Bilirubin 1.5 mg/dL (0.2-1.3)
[2024-03-22 00:06] LABS: Appearance,Urine Cloudy (Clear); Bacteria,Urine Many /hpf; Bilirubin,Urine Negative (Negative); Blood,Urine Small (Negative); Color,Urine Light Yellow; Glucose,Urine (UA) Negative (Negative); Ketones,Urine Negative (Negative); Leukocyte Esterase,Urine Large (Negative); Mucus,Urine Rare /hpf; Nitrite,Urine Positive (Negative); Protein,Urine Trace (Negative); RBC,Urine 58 /hpf (0-5); Specific Gravity,Urine 1.012 (1.001-1.035); Squamous Epithelial Cell,Urine 17 /hpf (0-4); Urobilinogen,Urine <2.0 mg/dL (<2.0); WBC,Urine 79 /hpf (0-5)
[2024-03-22 00:29] LABS: AST 60 U/L (14-36); Albumin 2.8 g/dL (3.5-5.0); Total Protein 5.8 g/dL (6.3-8.2)
[2024-03-22 00:30] LABS: Alkaline Phosphatase 111 U/L (38-126)
--- NOTE | 2024-03-22 01:42 | CT ---
EXAM: CT Abdomen and Pelvis With Intravenous Contrast CLINICAL HISTORY: ITS.REASON CT Reason: LLQ ab pain TECHNIQUE: Axial computed tomography images of the abdomen and pelvis with intravenous contrast. CTDI is 100 mGy and DLP is 4757 mGy-cm. This CT exam was performed using one or more of the following dose reduction techniques: automated exposure control, adjustment of the mA and/or kV according to patient size, and/or use of iterative reconstruction technique. COMPARISON: No relevant prior studies available. FINDINGS: Lung bases: Unremarkable. No mass. No consolidation. ABDOMEN: Liver: Hepatic steatosis. Gallbladder and bile ducts: Cholecystectomy. No ductal dilation. Pancreas: Unremarkable. No mass. No ductal dilation. Spleen: Unremarkable. No splenomegaly. Adrenals: Unremarkable. No mass. Kidneys and ureters: Nonobstructing bilateral renal stones, measuring up to 1.5 cm in the RIGHT lower pole. Stomach and bowel: Mild fecal retention, correlate for constipation. Diverticulosis, without acute diverticulitis. No small bowel obstruction. No free intraperitoneal air. PELVIS: Appendix: No findings to suggest acute appendicitis. Bladder: Unremarkable. No mass. Reproductive: Unremarkable as visualized. ABDOMEN and PELVIS: Intraperitoneal space: Unremarkable. No free air. No significant fluid collection. Bones/joints: Degenerative changes of the spine. No acute fracture. No dislocation. Soft tissues: Unremarkable. Vasculature: Atherosclerotic changes of the aorta. No abdominal aortic aneurysm. Lymph nodes: Unremarkable. No enlarged lymph nodes. IMPRESSION: 1. Cholecystectomy. 2. Mild fecal retention, correlate for constipation. 3. Nonobstructing bilateral renal stones, measuring up to 1.5 cm in the RIGHT lower pole. 4. Diverticulosis, without acute diverticulitis. No small bowel obstruction. No free intraperitoneal air.
[2024-03-22] MEDS: MORPHINE SULFATE 4 MG/ML SYRINGE IVP STA (02:32)
[2024-03-22] MEDS: cefTRIAXone IN SWFI 1,000 MG/10 ML SYRINGE IVP STA (03:20)
[2024-03-22 03:22] VITALS: BP 116/67; PULSE 83; RESP 19
[2024-03-22] MEDS: ONDANSETRON 4 MG ODT STARTER PACK 2 TAB BTL PO STA (03:27)
== END 2024-03-22 03:40 | disposition home or self-care (01) ==
LOC: EC 21:44
CPT/HCPCS: 36415; 74177; 74178; 80053; 81001; 82140; 82150; 83690; 85025; 87077; 87086; 87186; 96374; 96375; 96376; 99284

== ENCOUNTER 2024-03-24 20:08 | Inpatient (IN) | payer MEDICARE, OTHER ==
--- NOTE | 2024-03-24 20:38 | ED ---
Abdominal Pain HPI - General Source: patient, RN notes reviewed Mode of arrival: wheelchair Limitations: no limitations <Corrina Rg - Last Filed: 03/24/24 20:36> <Lizzie Sanchez - Last Filed: 03/25/24 06:19> - General Chief Complaint: Abdominal Pain Stated Complaint: Abd pain Time Seen by Provider: 03/24/24 20:36 - History of Present Illness Initial Comments: Quick [id number] female presenting for vomiting. States she was diagnosed with a UTI 3 days ago, but was not able to pickle sorter her antibiotic until yesterday. States symptoms have worsened including vomiting, subjective fevers, and abdominal pain. (ArcenioCorrina) Patient is a 54-year-old female history of pickwickian syndrome, peptic ulcer disease cirrhosis obesity presenting today for upper abdominal pain. Presented 4 days ago for similar. Was diagnosed with UTI and discharged home. Patient states since then she has not had a bowel movement. Last bowel movement "looks like coal". Has attempted her home oral morphine without relief from her pain. States intermittently cannot keep medications down. Endorsed 3 episodes of nonbloody nonbilious this last night and one episode today. States she has not eaten any food today due to nausea and vomiting. Endorses fever since as well, Tmax 100.7. Last fever was measured at 6:00 today took 1000 g Tylenol. She denies any chest pain or difficulty in breathing. No new numbness or weakness. No lower extremity swelling. Has had a prior gastric bypass. Otherwise no abdominal surgeries. Denies grossly bloody stool. Denies hematuria, dysuria or urinary frequency (Lzizie Sanchez) - Related Data Home Medications Medication Instructions Recorded Confirmed Levothyroxine Sodium [Synthroid] 50 mcg PO DAILY 06/04/20 08/31/23 ALPRAZolam [Xanax] 0.25 mg PO BID PRN 08/31/23 08/31/23 Cholecalciferol [Vitamin D3 (25 50 mcg PO DAILY 08/31/23 08/31/23 Mcg = 1000 Iu)] Losartan Potassium 50 mg PO HS 08/31/23 08/31/23 Morphine Sulfate Ir [MSIR] 15 mg PO BID PRN 08/31/23 08/31/23 Multivit with Calcium,Iron,Min 1 tab PO DAILY 08/31/23 08/31/23 [Women's Multivitamin] Vitamin C(Unknown Dose) 1 tab PO DAILY 08/31/23 08/31/23 buPROPion SR [Wellbutrin SR] 100 mg PO DAILY 08/31/23 08/31/23 buPROPion SR [Wellbutrin SR] 200 mg PO HS 08/31/23 08/31/23 Previous Rx's Medication Instructions Recorded Metoprolol Tartrate [Lopressor] 25 mg PO BID #60 tab 07/28/16 Mirtazapine [Remeron] 15 mg PO HS #30 tablet 07/28/16 Morphine Sulfate ER [Ms Contin] 60 mg PO Q12HR #6 tab 06/10/20 Ondansetron Odt [Zofran Odt] 4 mg PO Q8HR PRN #20 tab 08/31/23 Pantoprazole [Protonix] 40 mg PO DAILY #15 tab 08/31/23 Lactulose [Cephulac] 30 gm PO TID #4050 ml 09/05/23 Cephalexin [Keflex] 500 mg PO Q6HR #40 cap 03/22/24 Allergies Allergy/AdvReac Type Severity Reaction Status Date / Time aspirin Allergy Unknown Verified 03/24/24 20:15 ciprofloxacin [From Cipro] Allergy Swelling Verified 03/24/24 20:15 ciprofloxacin HCl Allergy Swelling Verified 03/24/24 20:15 [From Cipro] levofloxacin [From Levaquin] Allergy Rash/Hives Verified 03/24/24 20:15 Penicillins Allergy Rash/Hives Verified 03/24/24 20:15 Review of Systems ROS Other: All systems not noted in ROS Statement are negative. <Corrina Rg - Last Filed: 03/24/24 20:36> ROS Other: All systems not noted in ROS Statement are negative. <Lizzie Sanchez - Last Filed: 03/25/24 06:19> ROS Statement: Those systems with pertinent positive or pertinent negative responses have been documented in the HPI. 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 complicated by a wrist drop and chronic contractures and muscle atrophy in the left upper extremity, complex regional pain syndrome, reflex sympathetic dystrophy, pancreatitis, morbid obesity, history of hemorrhagic cystitis, history of chronic pain, history of GI bleeds, cellulitis, septic in 2016 [facility] History of Any Multi-Drug Resistant Organisms: MRSA Date of last positivie culture/infection: 07/20/16 MDRO Source:: Urine Past Surgical History: Appendectomy, Section, Cholecystectomy Additional Past Surgical History / Comment(s): bowel resection, breast reduction, bilateral ACL repair, left brachial tumor biopsy and lymph node removed, bilateral knee surgery Past Anesthesia/Blood Transfusion Reactions: No Reported Reaction Past Psychological History: Depression Smoking Status: Former smoker Past Alcohol Use History: None Reported Past Drug Use History: None Reported - Past Family History Daughter(s) Family Medical History: No Reported History Father Family Medical History: Diabetes Mellitus Additional Family Medical History / Comment(s): GOUT- ANY OTHER HS UNK Mother Additional Family Medical History / Comment(s): of LUNG DISEASE <Corrina Rg - Last Filed: 03/24/24 20:36> General Exam Limitations: no limitations <Corrina Rg - Last Filed: 03/24/24 20:36> <Lizzie Sanchez - Last Filed: 03/25/24 06:19> - General Exam Comments Initial Comments: Visual Physical Exam Vital signs reviewed General: Well-appearing, nontoxic, no acute distress. Head: Normocephalic, atraumatic Eyes: PERRLA, EOMI ENT: Airway patent Chest: Nonlabored breathing Skin: No visual rash, normal skin tone Neuro: Alert and oriented 3 Musculoskeletal: No gross abnormalities (Corrina Rg) PE: CONSTITUTIONAL: No apparent distress, chronically ill-appearing nontoxic SKIN: Warm, dry, no jaundice, hives or petechiae EYES: Pupils are equally round, extraocular movements intact without nystagmus, clear conjunctiva, non-icteric sclera HENT: Normocephalic, atraumatic, moist mucus membranes, oropharynx clear without exudates NECK: , Full range of motion, normal appearance PULMONARY: Clear to auscultation without wheezes, rhonchi, or rales, normal excursion, no accessory muscle use and no stridor CARDIOVASCULAR: Regular rate, rhythm, normal S1 and S2. No appreciated murmurs, rubs or gallops. Strong radial pulses with intact distal perfusion. No lower extremity edema GASTROINTESTINAL: Soft, diffusely tender, active bowel sounds present non- distended, no palpable masses, no rebound or guarding. No hepatosplenomegaly GENITOURINARY: MUSCULOSKELETAL: Extremities have no gross deformity, no edema, redness, or swelling. No calf swelling ot TTP. NEUROLOGIC:_a/o x 3, GCS 15, normal mentation and speech. Moves all extremities x 4 without motor or sensory deficit PSYCHIATRIC:_normal mood and affect, thought process is clear and linear (Lizzie Sanchez) Course Vital Signs 03/24/24 03/24/24 03/25/24 20:13 23:46 03:34 Temperature 98.4 F Pulse Rate 78 72 71 Respiratory 16 16 16 Rate Blood Pressure 90/45 99/56 105/60 O2 Sat by Pulse 97 94 L 98 Oximetry 03/25/24 06:06 Temperature Pulse Rate 71 Respiratory 14 Rate Blood Pressure 88/48 O2 Sat by Pulse 97 Oximetry Medical Decision Making <Corrina Rg - Last Filed: 03/24/24 20:36> - Lab Data Result diagrams: 03/24/24 22:47 03/24/24 22:47 <Lizzie Sanchez - Last Filed: 03/25/24 06:19> - Medical Decision Making I completed the quick note portion of this chart signed Corrina Rg PA-C (Corrina Rg) Was pt. sent in by a medical professional or institution ([facility], FACE MAN, urgent care, hospital, or intermediate...) When possible be specific @ -No Did you speak to anyone other than the patient for history (EMS, parent, family, police, friend...)? What history was obtained from this source @ -No Did you review nursing and triage notes (agree or disagree)? Why? @ -I reviewed and agree with nursing and triage notes Were old charts reviewed (outside hosp., previous admission, EMS record, old EKG, old radiological studies, urgent care reports/EKG's, intermediate records)? Report findings @ -Reviewed old charts, and reviewed CT abdomen pelvis done on 03/12/2024, showed constipation otherwise no acute process, reviewed discharge summary from sleep 09/05/2023 when patient was admitted for liver cirrhosis and peptic ulcer disease Differential Diagnosis (chest pain, altered mental status, abdominal pain women, abdominal pain men, vaginal bleeding, weakness, fever, dyspnea, syncope, headache, dizziness, GI bleed, back pain, seizure, CVA, palpatations, mental health, musculoskeletal)? @ -Differential diagnosis remains broad over top considerations include constipation, ureterolithiasis, pyelonephritis, peptic ulcer disease, gastritis, pancreatitis, hepatitis, UTI, gastroenteritis this is not all-inclusive list X-rays interpreted by me (1pt min.). @ -X-ray of the abdomen performed did not show any signs of perforation or obstruction CT interpreted by me (1pt min.). @ -Large staghorn calculi in the right kidney without hydronephrosis U/S interpreted by me (1pt. min.). @ -None done What testing was considered but not performed or refused? (CT, X-rays, U/S, labs)? Why? @ -None What meds were considered but not given or refused? Why? @ -None Did you discuss the management of the patient with other professionals (pro fessionals i.e. , PA, FACE MAN, lab, RT, psych nurse, social work assistant, blanket folder, teacher, civil preparedness officer, casework manager)? Give summary @ -No Was smoking cessation discussed for >3mins.? @ -No Was critical care preformed (if so, how long)? @ -No Were there social determinants of health that impacted care today? How? (Homelessness, low income, unemployed, alcoholism, drug addiction, transportation, low edu. Level, literacy, decrease access to med. care, long-term, rehab)? @ -No Was there de-escalation of care discussed even if they declined (Discuss DNR or withdrawal of care, Hospice)? @ -No What co-morbidities impacted this encounter? (DM, HTN, Smoking, COPD, CAD, Cancer, CVA, ARF, Chemo, Hep., AIDS, mental health diagnosis, sleep apnea, morbid obesity)? @ -Obesity, chronic pain, pickwickian syndrome Was patient admitted / discharged? Hospital course, mention meds given and route, prescriptions, significant lab abnormalities, going to OR and other pertinent info. @ -Hospital course Patient is a 54-year-old female the past medical history of pickwickian syndrome, peptic ulcer disease, liver cirrhosis presenting today for abdominal pain. Patient states that she was here about 4 days ago for similar. Ultimately discharged home with antibiotic. On my assessment patient is chronically ill-appearing but in no acute distress. Nontoxic-appearing exam significant for diffuse abdominal tenderness with active bowel sounds, nondistended, soft, no palpable masses. Discussed with patient that I reviewed her recent CT scan and was concerned that her symptoms may be secondary to constipation and that narcotics could potentially worsen this. She became tearful so we discussed ordering 1 mg of Dilaudid during workup to ensure patient comfort. Additionally ordered Protonix. As recent CT of the pelvis was done patient states similar to prior, will hold off on repeat CT and less significant lab abnormalities from prior. Did order upright KUB to ensure no free air under the diaphragm that would indicate perforation. Added ammonia, lipase, lactic CBC, CMP, urinalysis. Will administer IV fluids as well. Of note patient appeared to be hypotensive on arrival blood pressure 90/45 however blood pressure was taken with a room cuff on patient's wrist due to obesity/body habitus. On reassessment blood pressure 99/56 with a MAP of 76. Labs reviewed, hemoglobin 10.6, appears similar to prior, 03/21/2024 was 11.3, patient does appear to chronically anemic, however will obtain hemmocult test to ensure no signs of GI bleeding since patient has hx prior GI bleed. chloride 112, glucose 70, lipase 199, ammonia less than 9. On my reassessment patient endorses improvement in pain. Updated patient to labs so far. Performed rectal exam and obtain Hemoccult test with RADU Julio as pre fabricator. Rectal exam showed no hemorrhoids or fissures. Hemoccult negative. X-ray read by radiologist as fecal retention correlate for constipation cholecystectomy and nonobstructive Bowel gas pattern. On reassessment patient states her pain has returned, I discussed with her concern for worsening constipation as potential cause of her pain and the fact that narcotics would continue to worsen this. I offered her interventions here including an enema, lactulose MiraLAX and senna however patient politely refused. Patient already urinated in the toilet, but was agreeable to a catheter sample. Patient given oral apple juice and will recheck glucose while awaiting urinalysis. Urinalysis shows large amount of blood and large leukocyte esterase in urine. Due to this reason a known history of kidney stones a CT abdomen pelvis without contrast was repeated to assess site of kidney stones, for obstructive uropathy. Plan for admission for pyelonephritis. Updated patient plan of care. She is agreement plan of care. Patient is able to tolerate p.o. Keflex which she is already started so cefepime ordered for antibiotics. Additional Dilaudid ordered. CT on pelvis showed a dominant 2.6 cm st[place]urn calculi in the right kidney without hydronephrosis or obstructive uropathy. Consult to urology, Dr. Bre dennis. Discussed with Dr. Daughter who kindly accepts for admission. Patient admitted in stable condition. Undiagnosed new problem with uncertain prognosis? @ -No Drug Therapy requiring intensive monitoring for toxicity (Heparin, Nitro, Insulin, Cardizem)? @ -No Were any procedures done? @ -No Diagnosis/symptom? @ -Pyelonephritis Acute, or Chronic, or Acute on Chronic? @ -Acute Uncomplicated (without systemic symptoms) or Complicated (systemic symptoms)? @ -Complicated Side effects of treatment? @ -No Exacerbation, Progression, or Severe Exacerbation? @ -No Poses a threat to life or bodily function? How? (Chest pain, [place], [place], pneumonia, PE, COPD, DKA, ARF, appy, cholecystitis, CVA, Diverticulitis, Homicidal, Suicidal, threat to staff... and all critical care pts) @ -Yes, if allowed to progress untreated could result in sepsis and septic shock (Lizzie Sanchez) - Lab Data Lab Results 03/24/24 03/24/24 03/24/24 Range/Units 22:47 22:47 22:47 WBC 8.0 (3.8-10.6) k/uL RBC 3.24 L (3.80-5.40) m/uL Hgb 10.6 L (11.4-16.0) gm/dL Hct 32.4 L (34.0-46.0) % MCV 100.0 (80.0-100.0) fL MCH 32.6 (25.0-35.0) pg MCHC 32.6 (31.0-37.0) g/dL RDW 13.7 (11.5-15.5) % Plt Count 201 (150-450) k/uL MPV 8.6 Neutrophils % 67 % Lymphocytes % 19 % Monocytes % 8 % Eosinophils % 2 % Basophils % 0 % Neutrophils # 5.4 (1.3-7.7) k/uL Lymphocytes # 1.5 (1.0-4.8) k/uL Monocytes # 0.6 (0-1.0) k/uL Eosinophils # 0.2 (0-0.7) k/uL Basophils # 0.0 (0-0.2) k/uL Hypochromasia Slight Sodium 138 (137-145) mmol/L Potassium 3.7 (3.5-5.1) mmol/L Chloride 112 H (98-107) mmol/L Carbon Dioxide 24 (22-30) mmol/L Anion Gap 2 mmol/L BUN 14 (7-17) mg/dL Creatinine 0.82 (0.52-1.04) mg/dL Est GFR (CKD-EPI)AfAm >90 (>60 ml/min/1.73 sqM) Est GFR (CKD-EPI)NonAf 83 (>60 ml/min/1.73 sqM) Glucose 70 L (74-99) mg/dL Plasma Lactic Acid Jesus 1.3 (0.7-2.0) mmol/L Calcium 9.9 (8.4-10.2) mg/dL Total Bilirubin 1.2 (0.2-1.3) mg/dL AST 47 H (14-36) U/L ALT 15 (4-34) U/L Alkaline Phosphatase 102 (38-126) U/L Ammonia <9 (<30) umol/L Total Protein 5.5 L (6.3-8.2) g/dL Albumin 2.5 L (3.5-5.0) g/dL Lipase 199 (23-300) U/L Urine Color Urine Appearance (Clear) Urine pH (5.0-8.0) Ur Specific [place] (1.001-1.035) Urine Protein (Negative) Urine Glucose (UA) (Negative) Urine Ketones (Negative) Urine Blood (Negative) Urine Nitrite (Negative) Urine Bilirubin (Negative) Urine Urobilinogen (<2.0) mg/dL Ur Leukocyte Esterase (Negative) Urine RBC (0-5) /hpf Urine WBC (0-5) /hpf Urine WBC Clumps (None) /hpf Ur Squamous Epith Cells (0-4) /hpf Urine Bacteria (None) /hpf Urine Mucus (None) /hpf Stool Occult Blood (Negative) 03/24/24 03/25/24 Range/Units 23:57 01:04 WBC (3.8-10.6) k/uL RBC (3.80-5.40) m/uL Hgb (11.4-16.0) gm/dL Hct (34.0-46.0) % MCV (80.0-100.0) fL MCH (25.0-35.0) pg MCHC (31.0-37.0) g/dL RDW (11.5-15.5) % Plt Count (150-450) k/uL MPV Neutrophils % % Lymphocytes % % Monocytes % % Eosinophils % % Basophils % % Neutrophils # (1.3-7.7) k/uL Lymphocytes # (1.0-4.8) k/uL Monocytes # (0-1.0) k/uL Eosinophils # (0-0.7) k/uL Basophils # (0-0.2) k/uL Hypochromasia Sodium (137-145) mmol/L Potassium (3.5-5.1) mmol/L Chloride (98-107) mmol/L Carbon Dioxide (22-30) mmol/L Anion Gap mmol/L BUN (7-17) mg/dL Creatinine (0.52-1.04) mg/dL Est GFR (CKD-EPI)AfAm (>60 ml/min/1.73 sqM) Est GFR (CKD-EPI)NonAf (>60 ml/min/1.73 sqM) Glucose (74-99) mg/dL Plasma Lactic Acid Jesus (0.7-2.0) mmol/L Calcium (8.4-10.2) mg/dL Total Bilirubin (0.2-1.3) mg/dL AST (14-36) U/L ALT (4-34) U/L Alkaline Phosphatase (38-126) U/L Ammonia (<30) umol/L Total Protein (6.3-8.2) g/dL Albumin (3.5-5.0) g/dL Lipase (23-300) U/L Urine Color Colorless Urine Appearance Clear (Clear) Urine pH 6.5 (5.0-8.0) Ur Specific [place] 1.009 (1.001-1.035) Urine Protein Negative (Negative) Urine Glucose (UA) Negative (Negative) Urine Ketones Negative (Negative) Urine Blood Large H (Negative) Urine Nitrite Negative (Negative) Urine Bilirubin Negative (Negative) Urine Urobilinogen <2.0 (<2.0) mg/dL Ur Leukocyte Esterase Large H (Negative) Urine RBC 68 H (0-5) /hpf Urine WBC 150 H (0-5) /hpf Urine WBC Clumps Few H (None) /hpf Ur Squamous Epith Cells <1 (0-4) /hpf Urine Bacteria Rare H (None) /hpf Urine Mucus Rare H (None) /hpf Stool Occult Blood Negative (Negative) Disposition <Corrina Rg - Last Filed: 03/24/24 20:36> <Lizzie Sanchez - Last Filed: 03/25/24 06:19> Clinical Impression: Pyelonephritis, Nephrolithiasis Disposition: ADMITTED IP TO [facility] Condition: Good
[2024-03-24] MEDS: HYDROmorphone 1 MG/ML 1 ML SYRINGE IVP STA (22:51)
[2024-03-24] MEDS: PANTOPRAZOLE 40 MG/10 ML VIAL IVP STA (22:52)
[2024-03-24 22:56] LABS: Basophils % (A) 0 %; Eosinophils # (A) 0.2 k/uL (0-0.7); Eosinophils % (A) 2 %; HCT 32.4 % (34.0-46.0); HGB 10.6 gm/dL (11.4-16.0); Hypochromasia Slight; Lymphocytes # (A) 1.5 k/uL (1.0-4.8); Lymphocytes % (A) 19 %; MCH 32.6 pg (25.0-35.0); MCHC 32.6 g/dL (31.0-37.0); Mean Platelet Volume 8.6; Monocytes # (A) 0.6 k/uL (0-1.0); Monocytes % (A) 8 %; Neutrophils # (A) 5.4 k/uL (1.3-7.7); Neutrophils % (A) 67 %; Platelet Count 201 k/uL (150-450); RBC 3.24 m/uL (3.80-5.40); RDW 13.7 % (11.5-15.5)
[2024-03-24] MEDS: FAMOTIDINE 20 MG/2 ML VIAL IV STA (22:56)
[2024-03-24] MEDS: SODIUM CHLORIDE 0.9% 1,000 ML IV ONE (22:57)
[2024-03-24 23:04] LABS: Lactic Acid, Venous 1.3 mmol/L (0.7-2.0)
[2024-03-24 23:06] LABS: ALT 15 U/L (4-34); AST 47 U/L (14-36); African American GFR (CKD) >90 (>60 ml/min/1.73 sqM); Albumin 2.5 g/dL (3.5-5.0); Alkaline Phosphatase 102 U/L (38-126); Anion Gap 2 mmol/L; Blood Urea Nitrogen 14 mg/dL (7-17); Calcium 9.9 mg/dL (8.4-10.2); Carbon Dioxide 24 mmol/L (22-30); Chloride 112 mmol/L (98-107); Glucose 70 mg/dL (74-99); Lipase 199 U/L (23-300); Non-African American GFR(CKD) 83 (>60 ml/min/1.73 sqM); Potassium 3.7 mmol/L (3.5-5.1); Sodium 138 mmol/L (137-145); Total Bilirubin 1.2 mg/dL (0.2-1.3); Total Protein 5.5 g/dL (6.3-8.2)
--- NOTE | 2024-03-25 00:38 | XR ---
EXAM: XR Abdomen, 1 View CLINICAL HISTORY: ITS.REASON XR Reason: Abdominal pain TECHNIQUE: Frontal supine view of the abdomen/pelvis. COMPARISON: No relevant prior studies available. FINDINGS: Gastrointestinal tract: Nonobstructed bowel gas pattern. Moderate fecal retention, correlate for constipation. Organs: Cholecystectomy. Bones/joints: Unremarkable. No acute fracture. IMPRESSION: 1. Moderate fecal retention, correlate for constipation. 2. Cholecystectomy. 3. Nonobstructed bowel gas pattern.
[2024-03-25 01:47] LABS: Appearance,Urine Clear (Clear); Bacteria,Urine Rare /hpf; Bilirubin,Urine Negative (Negative); Blood,Urine Large (Negative); Color,Urine Colorless; Glucose,Urine (UA) Negative (Negative); Ketones,Urine Negative (Negative); Leukocyte Esterase,Urine Large (Negative); Mucus,Urine Rare /hpf; Nitrite,Urine Negative (Negative); PH, Urine 6.5 (5.0-8.0); Protein,Urine Negative (Negative); RBC,Urine 68 /hpf (0-5); Specific Gravity,Urine 1.009 (1.001-1.035); Squamous Epithelial Cell,Urine <1 /hpf (0-4); Urobilinogen,Urine <2.0 mg/dL (<2.0); WBC,Urine 150 /hpf (0-5)
[2024-03-25] MEDS: ONDANSETRON ODT 4 MG TAB PO STA (02:15)
[2024-03-25] MEDS: HYDROmorphone 1 MG/ML 1 ML SYRINGE IM STA (03:13)
[2024-03-25] MEDS: HYDROmorphone 1 MG/ML 1 ML SYRINGE IVP STA (03:19)
[2024-03-25] MEDS: CEFEPIME 2 GM in SODIUM CHLORIDE 0.9% 100 ML IVPB STA (03:20)
[2024-03-25] MEDS ORDERED: CALCIUM CARBONATE 500 MG CHEWABLE PO PRN (03:31)
[2024-03-25] MEDS ORDERED: NALOXONE 0.4 MG/ML 1 ML VIAL IV PRN (03:31)
[2024-03-25] MEDS ORDERED: MAG HYDROX/AL HYDROX/SIMETH 30 ML CUP PO PRN (03:31)
[2024-03-25] MEDS ORDERED: HYDROcodone/APAP 5-325MG 1 EACH TAB PO PRN (03:31)
[2024-03-25] MEDS: DEXTROSE 5%-0.45% NACL 1,000 ML IV SCH (04:28)
--- NOTE | 2024-03-25 05:17 | CT ---
EXAM: CT Abdomen and Pelvis Without Intravenous Contrast CLINICAL HISTORY: ITS.REASON CT Reason: ureterolithiasis TECHNIQUE: Axial computed tomography images of the abdomen and pelvis without intravenous contrast. CTDI is 31.3 mGy and DLP is 1756 mGy-cm. This CT exam was performed using one or more of the following dose reduction techniques: automated exposure control, adjustment of the mA and/or kV according to patient size, and/or use of iterative reconstruction technique. COMPARISON: No relevant prior studies available. FINDINGS: Limitations: Limited evaluation in the absence of contrast. Lung bases: Dependent scarring at the lung bases with bronchiectasis. No consolidation. ABDOMEN: Liver: Nodular contour of the liver. Findings can be seen with sequelae of cirrhotic morphology. Gallbladder and bile ducts: Cholecystectomy changes. No ductal dilation. Pancreas: Unremarkable. No ductal dilation. Spleen: Unremarkable. No splenomegaly. Adrenals: Unremarkable. No mass. Kidneys and ureters: Dominant right renal staghorn calculus measuring up to 2.9 cm with additional calculi in the bilateral kidneys. No evidence of obstructive renal calculi or signs of collecting system dilatation. Stomach and bowel: Unremarkable. No obstruction. No mucosal thickening. PELVIS: Appendix: No findings to suggest acute appendicitis. Bladder: Unremarkable. No stones. Reproductive: Unremarkable as visualized. ABDOMEN and PELVIS: Intraperitoneal space: Unremarkable. No free air. No significant fluid collection. Bones/joints: Degenerative changes in the spine. No acute fracture. No dislocation. Soft tissues: Umbilical hernia containing fat. Vasculature: Atherosclerotic disease. No abdominal aortic aneurysm. Lymph nodes: Unremarkable. No enlarged lymph nodes. IMPRESSION: 1. Dominant right renal staghorn calculus measuring up to 2.9 cm with additional calculi in the bilateral kidneys. No evidence of obstructive renal calculi or signs of collecting system dilatation. 2. Nodular contour of the liver. Findings can be seen with sequelae of cirrhotic morphology.
[2024-03-25] MEDS: HYDROmorphone 1 MG/ML 1 ML SYRINGE IVP PRN (08:38)
[2024-03-25] MEDS: ENOXAPARIN 40 MG/0.4 ML SYRINGE SQ SCH (08:40)
[2024-03-25] MEDS: FAMOTIDINE 20 MG TAB PO SCH (08:43)
[2024-03-25] MEDS ORDERED: ALPRAZolam 0.25 MG TAB PO PRN (14:13)
[2024-03-25] MEDS ORDERED: MORPHINE SULFATE IR 15 MG TABLET PO PRN (14:13)
[2024-03-25] MEDS: CEFEPIME 2 GM in SODIUM CHLORIDE 0.9% 100 ML IVPB SCH (15:42)
[2024-03-25] MEDS: LACTULOSE 20 GM/30 ML CUP PO SCH (15:43)
[2024-03-25] MEDS: MORPHINE SULFATE ER 60 MG TABLET PO SCH (20:11)
[2024-03-25] MEDS: ACETAMINOPHEN TAB 325 MG TAB PO PRN (21:17)
[2024-03-25] MEDS: MIRTAZAPINE 15 MG TAB PO SCH (21:18)
[2024-03-25] MEDS: buPROPion SR 100 MG TABLET.ER PO SCH ×2 (21:18)
[2024-03-25] MEDS: ONDANSETRON 4 MG/2 ML VIAL IVP PRN (21:18)
[2024-03-26] MEDS: LEVOTHYROXINE 50 MCG TAB PO SCH (05:30)
--- NOTE | 2024-03-26 11:17 | P.GSCN ---
History of Present Illness Consult date: 03/26/24 History of present illness: 54-year-old obese female with multiple medical problems admitted with abdominal pain and fever . She was diagnosed with urinary infection several days ago but did not start antibiotics until yesterday. The microbiology of urine infection was a Proteus. She had a CAT scan that identifies a staghorn calculus in the right kidney. There is evidence of infection. There is a tiny stone in the upper pole the left kidney.the patient has had a stone removed many years ago, greater than 10. She states that she has had recurring urinary infections. She has had back pain. She has had fevers . Review of Systems All systems: negative - Constitutional Denies fever, Denies weight loss - EENT Eyes: denies blurred vision Ears, nose, mouth and throat: Denies dysphagia - Cardiovascular Denies chest pain, Denies shortness of breath - Respiratory Denies cough, Denies 7 - Gastrointestinal Reports as per HPI - Genitourinary Genitourinary: Denies dysuria, Denies hematuria - Integumentary Denies rash, Denies unusual bruising - Neurological Denies headaches, Denies syncope - Hematologic/Lymphatic Denies easy bleeding, Denies easy bruising 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 complicated by a wrist drop and chronic contractures and muscle atrophy in the left upper extremity, complex regional pain syndrome, reflex sympathetic dystrophy, pancreatitis, morbid obesity, history of hemorrhagic cystitis, history of chronic pain, history of GI bleeds, cellulitis, septic in 2016 [facility] History of Any Multi-Drug Resistant Organisms: MRSA Year Discovered:: 07/20/16 MDRO Source:: Urine Past Surgical History: Appendectomy, Section, Cholecystectomy Additional Past Surgical History / Comment(s): bowel resection, breast reduction, bilateral ACL repair, left brachial tumor biopsy and lymph node removed, bilateral knee surgery Past Anesthesia/Blood Transfusion Reactions: No Reported Reaction Past Psychological History: Depression Additional Psychological History / Comment(s): PT SAW DR MALIK DEVRIES IN [facility]([address] [facility]) [phone] AFIA TELLEZ [phone]. Smoking Status: Former smoker Past Alcohol Use History: None Reported Additional Past Alcohol Use History / Comment(s): Patient states that she is a lifelong nonsmoker. She denies any medical marijuana, marijuana or street drug or alcohol use. Patient lives at home with her and 2 sons that are 20 and 22 years of age. There is a cat in the home. Patient is currently residing at [facility] for rehab. Past Drug Use History: None Reported - Past Family History Daughter(s) Family Medical History: No Reported History Father Family Medical History: Diabetes Mellitus Additional Family Medical History / Comment(s): GOUT- ANY OTHER HS UNK Mother Additional Family Medical History / Comment(s): of LUNG DISEASE Medications and Allergies Home Medications Medication Instructions Recorded Confirmed Type Mirtazapine [Remeron] 15 mg PO HS #30 tablet 07/28/16 03/25/24 Rx Levothyroxine Sodium [Synthroid] 50 mcg PO DAILY 06/04/20 03/25/24 History Morphine Sulfate ER [Ms Contin] 60 mg PO Q12HR #6 tab 06/10/20 03/25/24 Rx ALPRAZolam [Xanax] 0.25 mg PO BID PRN 08/31/23 03/25/24 History Morphine Sulfate Ir [MSIR] 15 mg PO BID PRN 08/31/23 03/25/24 History buPROPion SR [Wellbutrin SR] 100 mg PO DAILY 08/31/23 03/25/24 History buPROPion SR [Wellbutrin SR] 200 mg PO HS 08/31/23 03/25/24 History Cephalexin [Keflex] 500 mg PO Q6HR #40 cap 03/22/24 03/25/24 Rx Losartan Potassium [Cozaar] 100 mg PO DAILY 03/25/24 03/25/24 History Metoprolol Tartrate [Lopressor] 25 mg PO BID 03/25/24 03/25/24 History Allergies Allergy/AdvReac Type Severity Reaction Status Date / Time aspirin Allergy Unknown Verified 03/25/24 07:41 ciprofloxacin [From Cipro] Allergy low bp, Verified 03/25/24 07:41 swelling ciprofloxacin HCl Allergy low BP, Verified 03/25/24 07:41 [From Cipro] swelling levofloxacin [From Levaquin] Allergy Rash/Hives Verified 03/25/24 07:41 Penicillins Allergy Rash/Hives Verified 03/25/24 07:41 Surgical - Exam Vital Signs Temp Pulse Resp BP Pulse Ox 98.4 F 78 16 90/45 97 03/24/24 20:13 03/24/24 20:13 03/24/24 20:13 03/24/24 20:13 03/24/24 20:13 - General mild distress, anxiety well developed, well nourished, obese - Eyes PERRL - ENT no hearing loss - Neck trachea midline - Respiratory normal expansion, normal respiratory effort - Cardiovascular Rhythm: regular - Abdomen Abdomen: soft, non tender - Integumentary no rash, no growths - Neurologic normal coordination, normal sensation - Psychiatric oriented to time, oriented to person, oriented to place, speech is normal, memory intact Results - Labs 03/24/24 22:47 03/24/24 22:47 Microbiology - Last 24 Hours (Table) 03/25/24 01:04 Urine Culture - Final Urine,Voided - Imaging CT scan - abdomen: report reviewed CT scan - pelvis: report reviewed Assessment and Plan Assessment: impression: Pyonephritis right. Staghorn calculus right. multiple medical illnesses.morbid obesity Recommendations: The patient should be treated with IV antibiotics until her temperature defervesced this. She should stay on oral antibiotics. She has an infected right Staghorn calculus and will need a right percutaneous nephrostolithotomy eventually. due to the patient's orbit obesity I'll have to review the computed tomography scan to determine whether our instruments here are long enough to do the percutaneous nephrostolithotomy here or whether we will have to refer her to a Medical Center. Time with Patient: Greater than 30
--- NOTE | 2024-03-26 16:03 | P.HPIM ---
History of Present Illness H&P Date: 03/25/24 Chief Complaint: Right pyelonephritis with a staghorn calculus HISTORY OF PRESENT ILLNESS: This is a 54-year-old female with a previous medical history significant for hypertension and hypertensive cardiovascular disease, history of obesity with obstructive sleep apnea and obesity hypoventilation syndrome (pickwickian syndrom), history of peptic ulcer disease status post EGD 06/05/2020 with Endo Clip and gold probe ablation, history of schwannoma of the left brachial praxis status post surgical intervention that resulted in chronic regional pain syndrome [reflex sympathetic dystrophy, history of liver cirrhosis patient has been cared for by Dr. Rodgers. Patient's is the primary caregiver for her and she is wheelchair-bound and bedbound, not ambulatory at all. Patient presented to the emergency department at [facility] because of increased fever and chills temperature up to 102, associated with severe abdominal pain in the right upper quadrant associated with nausea and vomiting and she has not had a bowel movement for the last few days, even though she has been taking her lactulose regularly, patient was seen in the emergency depart ment after she had contacted my office and I recommended for the patient to go to the ER for evaluation she did not have any leukocytosis she was mildly anemic, she did find to have a urinary tract infection, ended up going for a CT scan of the abdomen pelvis that showed a right dominant staghorn calculus about 2.9 cm with bilateral renal calculi that are nonobstructing, she was seen in consultation by urology who recommended to continue with current IV antibiotic, and she may need to go to be transferred to a tertiary care center for possible surgical intervention. REVIEW OF SYSTEMS: Constitutional: Positive for documented fever, positive for chills, no night sweats. No weight change. Positive for weakness, fatigue or lethargy. No daytime sleepiness. EENT: No headache. No blurred vision or double vision, no loss of vision. No loss of Hearing, no ringing in the ears, no dizziness. No nasal drainage or congestion. No epistaxis. No sore throat. Lungs: No shortness of breath, no cough, no sputum production. No wheezing. Reports dyspnea with activity. Cardiovascular: No chest pain, no lower extremity edema. No palpitations. No paroxysmal nocturnal dyspnea. No orthopnea. No lightheadedness or dizziness. No syncopal episodes. Abdominal: Reports abdominal pain. positive for nausea, vomiting. No diarrhea. Positive for constipation. No bloody or tarry stools reports loss of appetite. Genitourinary: No dysuria, increased frequency, urgency. No urinary retention. Musculoskeletal: No myalgias. No muscle weakness, positive for gait dysfunction, no frequent falls. No back pain. No neck pain.left arm pain Integumentary: No wounds, no lesions. No rash or pruritus. No unusual bruising. No change in hair or nails. Neurologic: No aphasia. No facial droop. No change in mentation. No head injury. No headache. No paralysis. No paresthesia. Psychiatric: Positive for depression. positive for anxiety. No mood swings. Endocrine: No abnormal blood sugars. No weight change. PAST MEDICAL HISTORY: Hypertension and hypertensive cardiovascular disease. Liver cirrhosis with portal hypertension and possible chronic portal vein thrombus. Obesity with obstructive sleep apnea with obesity hypoventilation syndrome [pickwickian syndrome] Kidney stones. Chronic regional pain syndrome Schwannoma of the left brachial plexus. chronic pain syndrome. Anxiety disorder. Gait dysfunction. Peptic ulcer disease. Hypothyroidism Mixed hyperlipidemia Colonoscopy 2009 PAST SURGICAL HISTORY: Cholecystectomy. EGD with Endo Clip and gold probe ablation for duodenal ulcer 06/05/2020 Appendectomy. Bowel resection Bilateral ACL repair Bilateral knee surgery Left brachial plexus biopsy with lymph node dissection Bilateral breast reduction surgery. SOCIAL HISTORY: Patient used to smoke about a pack every day since she was 17-year-old, and she quit more than 15 years ago, she denies any alcohol ingestion, no drug use or abuse, she lives with her who is the primary caregiver. FAMILY HISTORY: Father is 65-year-old with history of hypertension mother at the age of 51 from idiopathic pulmonary fibrosis patient has 1 sister 50-year-old with history of osteoarthritis 1 son alive and healthy and 2 daughters no major medical problems. PHYSICAL EXAMINATION: General: 54-year-old female laying down in bed in no apparent distress HEENT: Head is atraumatic, normocephalic, pupils were equal round reactive to light and recommendation, extraocular muscle movement were intact, sclera nonicteric, conjunctivae were pale, mucous membranes of the mouth are somewhat dry. Neck: Supple, no JVP, normal carotid upstroke bilaterally, no lymphadenopathy. Chest: Decreased breath sounds at the bases, few rhonchi, no expiratory wheezes, no chest wall tenderness, no intercostal retractions. Heart: First heart sound is normal, second heart sound is normal there is systolic ejection murmur 2/6 located in the left sternal border. Abdomen: Soft, mild right upper quadrant tenderness, nondistended, positive bowel sounds. Extremities: There is no edema no calf tenderness DP +2 bilaterally. Neurologic examination: Patient is awake alert and oriented x3 , cranial nerves II-12 appear grossly intact, muscle power were 5 out of 5 in upper extremities and 5 out of 5 in bilateral lower extremities, deep tendon reflexes normal bilaterally. ASSESSMENT AND PLAN: 1. Right pyelonephritis with right staghorn calculus. Continue patient on cefepime 2 g piggyback every 8 hours, urine culture showed evidence of Proteus Mirabella's that is sensitive to ceftriaxone, will switch to ceftriaxone 2 g piggyback every 24 hours. Monitor the patient very closely, urology consultation appreciated, patient may need to be transferred to a tertiary concerning for possible surgical intervention. 2. Hypertension and hypertensive cardiovascular disease. Continue patient on metoprolol 25 mg orally twice every day, continue losartan 50 mg at bedtime, mon itor the patient blood pressure very closely. 3. Hypothyroidism. Continue patient on Synthroid 50 mcg orally once every day, monitor the patient TSH and free T4 as an outpatient. 4. Mixed hyperlipidemia not taking any statin due to her liver cirrhosis. 5. Anxiety disorder. Continue patient on Wellbutrin SR 200 mg in the morning and 100 mg at bedtime, continue mirtazapine 15 mg orally at bedtime will continue with Xanax as needed. 6. Obesity with obstructive sleep apnea and obesity hypoventilation syndrome [pickwickian syndrome]. continue with her CPAP machine. 7. History of peptic ulcer disease. Continue patient on Protonix 40 mg orally once every day. 8. Bilateral kidney stones. No hydronephrosis there is a 2.9 cm dominant right staghorn stone 9. history of pulmonary nodules about 7 mm need to be evaluated as an outpatient. 10. constipation. Increase lactulose to 20 g orally 3 times every day. 11. DVT prophylaxis. Lovenox 40 mg subcutaneously every 24 hours. 12. GI prophylaxis. Continue patient on Protonix 40 mg orally once every day. 13. Admit to inpatient estimated length of stay 2 midnights. 14. Full code. 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 complicated by a wrist drop and chronic contractures and muscle atrophy in the left upper extremity, complex regional pain syndrome, reflex sympathetic dystrophy, pancreatitis, morbid obesity, history of hemorrhagic cystitis, history of chronic pain, history of GI bleeds, cellulitis, septic in 2016 [facility] History of Any Multi-Drug Resistant Organisms: MRSA Date of last positivie culture/infection: 07/20/16 MDRO Source:: Urine Past Surgical History: Appendectomy, Section, Cholecystectomy Additional Past Surgical History / Comment(s): bowel resection, breast reduction, bilateral ACL repair, left brachial tumor biopsy and lymph node removed, bilateral knee surgery Past Anesthesia/Blood Transfusion Reactions: No Reported Reaction Past Psychological History: Depression Smoking Status: Former smoker Past Alcohol Use History: None Reported Past Drug Use History: None Reported - Past Family History Daughter(s) Family Medical History: No Reported History Father Family Medical History: Diabetes Mellitus Additional Family Medical History / Comment(s): GOUT- ANY OTHER HS UNK Mother Additional Family Medical History / Comment(s): of LUNG DISEASE Medications and Allergies Home Medications Medication Instructions Recorded Confirmed Type Mirtazapine [Remeron] 15 mg PO HS #30 tablet 07/28/16 03/25/24 Rx Levothyroxine Sodium [Synthroid] 50 mcg PO DAILY 06/04/20 03/25/24 History Morphine Sulfate ER [Ms Contin] 60 mg PO Q12HR #6 tab 06/10/20 03/25/24 Rx ALPRAZolam [Xanax] 0.25 mg PO BID PRN 08/31/23 03/25/24 History Morphine Sulfate Ir [MSIR] 15 mg PO BID PRN 08/31/23 03/25/24 History buPROPion SR [Wellbutrin SR] 100 mg PO DAILY 08/31/23 03/25/24 History buPROPion SR [Wellbutrin SR] 200 mg PO HS 08/31/23 03/25/24 History Cephalexin [Keflex] 500 mg PO Q6HR #40 cap 03/22/24 03/25/24 Rx Losartan Potassium [Cozaar] 100 mg PO DAILY 03/25/24 03/25/24 History Metoprolol Tartrate [Lopressor] 25 mg PO BID 03/25/24 03/25/24 History Allergies Allergy/AdvReac Type Severity Reaction Status Date / Time aspirin Allergy Unknown Verified 03/25/24 07:41 ciprofloxacin [From Cipro] Allergy low bp, Verified 03/25/24 07:41 swelling ciprofloxacin HCl Allergy low BP, Verified 03/25/24 07:41 [From Cipro] swelling levofloxacin [From Levaquin] Allergy Rash/Hives Verified 03/25/24 07:41 Penicillins Allergy Rash/Hives Verified 03/25/24 07:41 Physical Exam Vitals: Vital Signs Temp Pulse Resp BP Pulse Ox 03/25/24 11:56 70 18 104/61 97 03/25/24 08:27 75 16 114/76 98 03/25/24 06:06 71 14 109/63 97 03/25/24 03:34 71 16 105/60 98 03/24/24 23:46 72 16 99/56 94 L 03/24/24 20:13 98.4 F 78 16 90/45 97 Intake and Output 03/24/24 03/25/24 03/25/24 22:59 06:59 14:59 Other: Weight 108.862 kg Results CBC & Chem 7: 03/24/24 22:47 03/24/24 22:47 Labs: Abnormal Lab Results - Last 24 Hours (Table) 03/24/24 03/24/24 03/25/24 Range/Units 22:47 22:47 01:04 RBC 3.24 L (3.80-5.40) m/uL Hgb 10.6 L (11.4-16.0) gm/dL Hct 32.4 L (34.0-46.0) % Chloride 112 H (98-107) mmol/L Glucose 70 L (74-99) mg/dL AST 47 H (14-36) U/L Total Protein 5.5 L (6.3-8.2) g/dL Albumin 2.5 L (3.5-5.0) g/dL Urine Blood Large H (Negative) Ur Leukocyte Esterase Large H (Negative) Urine RBC 68 H (0-5) /hpf Urine WBC 150 H (0-5) /hpf Urine WBC Clumps Few H (None) /hpf Urine Bacteria Rare H (None) /hpf Urine Mucus Rare H (None) /hpf
--- NOTE | 2024-03-26 16:05 | P.PN ---
Subjective Progress Note Date: 03/26/24 HISTORY OF PRESENT ILLNESS: This is a 54-year-old female with a previous medical history signif icant for hypertension and hypertensive cardiovascular disease, history of obesity with obstructive sleep apnea and obesity hypoventilation syndrome (pickwickian syndrom), history of peptic ulcer disease status post EGD 06/05/2020 with Endo Clip and gold probe ablation, history of schwannoma of the left brachial praxis status post surgical intervention that resulted in chronic regional pain syndrome [reflex sympathetic dystrophy, history of liver cirrhosis patient has been cared for by Dr. Rodgers. Patient's is the primary caregiver for her and she is wheelchair-bound and bedbound, not ambulatory at all. Patient presented to the emergency department at [facility] because of increased fever and chills temperature up to 102, associated with severe abdominal pain in the right upper quadrant associated with nausea and vomiting and she has not had a bowel movement for the last few days, even though she has been taking her lactulose regularly, patient was seen in the emergency department after she had contacted my office and I recommended for the patient to go to the ER for evaluation she did not have any leukocytosis she was mildly anemic, she did find to have a urinary tract infection, ended up going for a CT scan of the abdomen pelvis that showed a right dominant staghorn calculus about 2.9 cm with bilateral renal calculi that are nonobstructing, she was seen in consultation by urology who recommended to continue with current IV antibiotic, and she may need to go to be transferred to a tertiary care center for possible surgical intervention. 03/26: Patient is sitting up in bed her was at the bedside, she was evaluated and updated about her current condition, urology saw the patient, may recommend transferring the patient to a tertiary care center like [facility] for further evaluation and surgical intervention, I will switch the patient IV antibiotic to ceftriaxone 2 g piggyback every 24 hours since the patient urine culture showed Proteus Mirabella's that is sensitive to ceftriaxone, continue current pain management, discontinue hydrocodone, continue Dilaudid as needed for breakthrough pain currently on morphine sulfate she has been under the care of pain management as an outpatient, we will follow-up with the patient very closely, patient did have a bowel movement today and 1 yesterday, continue lactulose 20 g orally 3 times every day, continue other treatment plan, will follow-up with the patient further recommendation is to follow based on the final decision of urology on whether or not the patient should be transferred to a tertiary care center. REVIEW OF SYSTEMS: Constitutional: Positive for documented fever, positive for chills, no night sweats. No weight change. Positive for weakness, fatigue or lethargy. No daytime sleepiness. EENT: No headache. No blurred vision or double vision, no loss of vision. No loss of Hearing, no ringing in the ears, no dizziness. No nasal drainage or congestion. No epistaxis. No sore throat. Lungs: No shortness of breath, no cough, no sputum production. No wheezing. R eports dyspnea with activity. Cardiovascular: No chest pain, no lower extremity edema. No palpitations. No paroxysmal nocturnal dyspnea. No orthopnea. No lightheadedness or dizziness. No syncopal episodes. Abdominal: Reports abdominal pain. positive for nausea, vomiting. No diarrhea. Positive for constipation. No bloody or tarry stools reports loss of appetite. Genitourinary: No dysuria, increased frequency, urgency. No urinary retention. Musculoskeletal: No myalgias. No muscle weakness, positive for gait dysfunction, no frequent falls. No back pain. No neck pain.left arm pain Integumentary: No wounds, no lesions. No rash or pruritus. No unusual bruising. No change in hair or nails. Neurologic: No aphasia. No facial droop. No change in mentation. No head injury. No headache. No paralysis. No paresthesia. Psychiatric: Positive for depression. positive for anxiety. No mood swings. Endocrine: No abnormal blood sugars. No weight change. PHYSICAL EXAMINATION: General: 54-year-old female laying down in bed in no apparent distress HEENT: Head is atraumatic, normocephalic, pupils were equal round reactive to light and recommendation, extraocular muscle movement were intact, sclera nonicteric, conjunctivae were pale, mucous membranes of the mouth are somewhat dry. Neck: Supple, no JVP, normal carotid upstroke bilaterally, no lymphadenopathy. Chest: Decreased breath sounds at the bases, few rhonchi, no expiratory wheezes, no chest wall tenderness, no intercostal retractions. Heart: First heart sound is normal, second heart sound is normal there is s ystolic ejection murmur 2/6 located in the left sternal border. Abdomen: Soft, mild right upper quadrant tenderness, nondistended, positive bowel sounds. Extremities: There is no edema no calf tenderness DP +2 bilaterally. Neurologic examination: Patient is awake alert and oriented x3 , cranial nerves II-12 appear grossly intact, muscle power were 5 out of 5 in upper extremities and 5 out of 5 in bilateral lower extremities, deep tendon reflexes normal bilaterally. ASSESSMENT AND PLAN: 1. Right pyelonephritis with right staghorn calculus. Continue patient on cefepime 2 g piggyback every 8 hours, urine culture showed evidence of Proteus Mirabella's that is sensitive to ceftriaxone, will switch to ceftriaxone 2 g piggyback every 24 hours. Monitor the patient very closely, urology consu ltation appreciated, patient may need to be transferred to a tertiary concerning for possible surgical intervention. 2. Hypertension and hypertensive cardiovascular disease. Continue patient on metoprolol 25 mg orally twice every day, continue losartan 50 mg at bedtime, monitor the patient blood pressure very closely. 3. Hypothyroidism. Continue patient on Synthroid 50 mcg orally once every day, monitor the patient TSH and free T4 as an outpatient. 4. Mixed hyperlipidemia not taking any statin due to her liver cirrhosis. 5. Anxiety disorder. Continue patient on Wellbutrin SR 200 mg in the morning and 100 mg at bedtime, continue mirtazapine 15 mg orally at bedtime will continue with Xanax as needed. 6. Obesity with obstructive sleep apnea and obesity hypoventilation syndrome [ pickwickian syndrome]. continue with her CPAP machine. 7. History of peptic ulcer disease. Continue patient on Protonix 40 mg orally once every day. 8. Bilateral kidney stones. No hydronephrosis there is a 2.9 cm dominant right staghorn stone 9. history of pulmonary nodules about 7 mm need to be evaluated as an outpatient. 10. constipation. Increase lactulose to 20 g orally 3 times every day. 11. DVT prophylaxis. Lovenox 40 mg subcutaneously every 24 hours. 12. GI prophylaxis. Continue patient on Protonix 40 mg orally once every day. Objective - Vital Signs Vital signs: Vital Signs Temp 98.8 F 03/26/24 13:25 Pulse 73 03/26/24 13:25 Resp 17 03/26/24 13:25 BP 154/85 03/26/24 13:25 Pulse Ox 97 03/26/24 13:25 FiO2 Intake & Output 03/25/24 03/26/24 03/26/24 18:59 06:59 18:59 Intake Total 590 Output Total 300 Balance 290 Weight 108.862 kg Intake: Oral 590 Output: Urine 300 Other: Voiding Method External Catheter Bedpan Diaper External Catheter - Labs CBC & Chem 7: 03/24/24 22:47 03/24/24 22:47 Labs: Microbiology - Last 24 Hours (Table) 03/25/24 01:04 Urine Culture - Final Urine,Voided
[2024-03-26] MEDS: CALCIUM CARBONATE 500 MG CHEWABLE PO SCH (21:34)
[2024-03-27 06:49] LABS: Basophils % (A) 1 %; Eosinophils # (A) 0.2 k/uL (0-0.7); Eosinophils % (A) 5 %; HCT 31.6 % (34.0-46.0); HGB 10.1 gm/dL (11.4-16.0); Hypochromasia Slight; Lymphocytes # (A) 1.5 k/uL (1.0-4.8); Lymphocytes % (A) 31 %; MCH 32.3 pg (25.0-35.0); Macrocytosis Slight; Mean Platelet Volume 8.4; Monocytes # (A) 0.4 k/uL (0-1.0); Monocytes % (A) 8 %; Neutrophils # (A) 2.6 k/uL (1.3-7.7); Neutrophils % (A) 53 %; Platelet Count 160 k/uL (150-450); RBC 3.13 m/uL (3.80-5.40)
[2024-03-27 07:03] LABS: ALT 17 U/L (4-34); AST 49 U/L (14-36); African American GFR (CKD) 89 (>60 ml/min/1.73 sqM); Albumin 2.5 g/dL (3.5-5.0); Albumin/Globulin Ratio 0.9; Alkaline Phosphatase 80 U/L (38-126); Anion Gap 1 mmol/L; Blood Urea Nitrogen 7 mg/dL (7-17); Carbon Dioxide 22 mmol/L (22-30); Chloride 116 mmol/L (98-107); Globulin 2.7 g/dL; Glucose 84 mg/dL (74-99); Non-African American GFR(CKD) 77 (>60 ml/min/1.73 sqM); Potassium 3.3 mmol/L (3.5-5.1); Sodium 139 mmol/L (137-145); Total Bilirubin 1.2 mg/dL (0.2-1.3); Total Protein 5.2 g/dL (6.3-8.2)
--- NOTE | 2024-03-27 08:34 | P.PN ---
Subjective Progress Note Date: 03/27/24 The patient is in the hospital with pyelonephritis right with a non obstructing staghorn calculous. Her urine culture is negative however she was on antibiotic prior to admission and the present culture. She recently grew a proteus mirabilis c/w an infected struvite stone. She is afebrile. Objective - Vital Signs Vital signs: Vital Signs Temp 98.9 F 03/27/24 01:39 Pulse 71 03/27/24 01:39 Resp 18 03/27/24 01:39 BP 113/75 03/27/24 01:39 Pulse Ox 95 03/27/24 01:39 FiO2 Intake & Output 03/26/24 03/26/24 03/27/24 06:59 18:59 06:59 Intake Total 590 780 Output Total 300 1000 1200 Balance 290 -220 -1200 Weight 108.862 kg Intake: Intake, IV Titration 240 Amount Dextrose 5%-0.45% NaCl 1, 240 000 ml @ 20 mls/hr IV . Q24H [facility] Rx#:[id number] Oral 590 540 Output: Urine 300 1000 1200 Other: Voiding Method External Catheter Bedpan Diaper Diaper Incontinent External Catheter External Catheter - Labs CBC & Chem 7: 03/27/24 05:52 03/27/24 05:52 Labs: Abnormal Lab Results - Last 24 Hours (Table) 03/26/24 Range/Units 17:54 PTH Intact 76.6 H (14.0-72.0) pg/mL Microbiology - Last 24 Hours (Table) 03/25/24 01:04 Urine Culture - Final Urine,Voided Assessment and Plan Assessment: Impression: right pyelonephritis with staghorn calculous, morbid obesity Plan: c/w antibiotics. I am reviewing the ct scan to determine whether we can technically do the right pcnl here or whether she will have to be referred to a medical center for this procedure
[2024-03-27] MEDS: LACTULOSE 20 GM/30 ML CUP PO SCH (17:32)
[2024-03-27] MEDS: POTASSIUM CHLORIDE ER 20 MEQ TAB.ER PO STA (21:33)
[2024-03-28] MEDS: NYSTATIN 100,000 UNIT/GM POWD 15 GM TOPICAL SCH (08:35)
[2024-03-28 11:43] VITALS: BMI 46.8
[2024-03-28 11:56] LABS: Glucose,Whole Blood 76 mg/dL (70-110)
--- NOTE | 2024-03-28 16:11 | P.PN ---
Subjective Progress Note Date: 03/27/24 HISTORY OF PRESENT ILLNESS: This is a 54-year-old female with a previous medical history signif icant for hypertension and hypertensive cardiovascular disease, history of obesity with obstructive sleep apnea and obesity hypoventilation syndrome (pickwickian syndrom), history of peptic ulcer disease status post EGD 06/05/2020 with Endo Clip and gold probe ablation, history of schwannoma of the left brachial praxis status post surgical intervention that resulted in chronic regional pain syndrome [reflex sympathetic dystrophy, history of liver cirrhosis patient has been cared for by Dr. Rodgers. Patient's is the primary caregiver for her and she is wheelchair-bound and bedbound, not ambulatory at all. Patient presented to the emergency department at [facility] because of increased fever and chills temperature up to 102, associated with severe abdominal pain in the right upper quadrant associated with nausea and vomiting and she has not had a bowel movement for the last few days, even though she has been taking her lactulose regularly, patient was seen in the emergency department after she had contacted my office and I recommended for the patient to go to the ER for evaluation she did not have any leukocytosis she was mildly anemic, she did find to have a urinary tract infection, ended up going for a CT scan of the abdomen pelvis that showed a right dominant staghorn calculus about 2.9 cm with bilateral renal calculi that are nonobstructing, she was seen in consultation by urology who recommended to continue with current IV antibiotic, and she may need to go to be transferred to a tertiary care center for possible surgical intervention. 03/26: Patient is sitting up in bed her was at the bedside, she was evaluated and updated about her current condition, urology saw the patient, may recommend transferring the patient to a tertiary care center like [facility] for further evaluation and surgical intervention, I will switch the patient IV antibiotic to ceftriaxone 2 g piggyback every 24 hours since the patient urine culture showed Proteus Mirabella's that is sensitive to ceftriaxone, continue current pain management, discontinue hydrocodone, continue Dilaudid as needed for breakthrough pain currently on morphine sulfate she has been under the care of pain management as an outpatient, we will follow-up with the patient very closely, patient did have a bowel movement today and 1 yesterday, continue lactulose 20 g orally 3 times every day, continue other treatment plan, will follow-up with the patient further recommendation is to follow based on the final decision of urology on whether or not the patient should be transferred to a tertiary care center. 03/27: Patient is laying down in bed in no apparent distress, she is feeling a lot better today, she has no fever or chills, she seems to be tolerating ceftriaxone 2 g piggyback every 24 hours well, she has no abdominal pain, nausea vomiting or diarrhea, she was seen by urology, the final decision of surgery has not been made yet, most likely this will be done as an outpatient, patient will be kept in the hospital for another 24 hours, hopefully she will be discharged home in the next 24 hours and follow-up as an outpatient. REVIEW OF SYSTEMS: Constitutional: Positive for documented fever, positive for chills, no night sweats. No weight change. Positive for weakness, fatigue or lethargy. No daytime sleepiness. EENT: No headache. No blurred vision or double vision, no loss of vision. No loss of Hearing, no ringing in the ears, no dizziness. No nasal drainage or congestion. No epistaxis. No sore throat. Lungs: No shortness of breath, no cough, no sputum production. No wheezing. Reports dyspnea with activity. Cardiovascular: No chest pain, no lower extremity edema. No palpitations. No paroxysmal nocturnal dyspnea. No orthopnea. No lightheadedness or dizziness. No syncopal episodes. Abdominal: Reports abdominal pain. positive for nausea, vomiting. No diarrhea. Positive for constipation. No bloody or tarry stools reports loss of appeti te. Genitourinary: No dysuria, increased frequency, urgency. No urinary retention. Musculoskeletal: No myalgias. No muscle weakness, positive for gait dysfunction, no frequent falls. No back pain. No neck pain.left arm pain Integumentary: No wounds, no lesions. No rash or pruritus. No unusual bruising. No change in hair or nails. Neurologic: No aphasia. No facial droop. No change in mentation. No head injury. No headache. No paralysis. No paresthesia. Psychiatric: Positive for depression. positive for anxiety. No mood swings. Endocrine: No abnormal blood sugars. No weight change. PHYSICAL EXAMINATION: General: 54-year-old female laying down in bed in no apparent distress HEENT: Head is atraumatic, normocephalic, pupils were equal round reactive to light and recommendation, extraocular muscle movement were intact, sclera nonicteric, conjunctivae were pale, mucous membranes of the mouth are somewhat dry. Neck: Supple, no JVP, normal carotid upstroke bilaterally, no lymphadenopathy. Chest: Decreased breath sounds at the bases, few rhonchi, no expiratory wheezes, no chest wall tenderness, no intercostal retractions. Heart: First heart sound is normal, second heart sound is normal there is systolic ejection murmur 2/6 located in the left sternal border. Abdomen: Soft, mild right upper quadrant tenderness, nondistended, positive bowel sounds. Extremities: There is no edema no calf tenderness DP +2 bilaterally. Neurologic examination: Patient is awake alert and oriented x3 , cranial nerves II-12 appear grossly intact, muscle power were 5 out of 5 in upper extremities and 5 out of 5 in bilateral lower extremities, deep tendon reflexes normal bilaterally. ASSESSMENT AND PLAN: 1. Right pyelonephritis with right staghorn calculus. Continue patient on cefepime 2 g piggyback every 8 hours, patient was switched to ceftriaxone 2 g piggyback every 24 hours, final urine culture so far is negative however after 18 hours, I will switch the patient to oral Ceftin 500 mg orally twice every day for the next 7 days as an outpatient. 2. Hypertension and hypertensive cardiovascular disease. Continue patient on metoprolol 25 mg orally twice every day, continue losartan 50 mg at bedtime, monitor the patient blood pressure very closely. 3. Hypothyroidism. Continue patient on Synthroid 50 mcg orally once every day, monitor the patient TSH and free T4 as an outpatient. 4. Mixed hyperlipidemia not taking any statin due to her liver cirrhosis. 5. Anxiety disorder. Continue patient on Wellbutrin SR 200 mg in the morning and 100 mg at bedtime, continue mirtazapine 15 mg orally at bedtime will continue with Xanax as needed. 6. Obesity with obstructive sleep apnea and obesity hypoventilation syndrome [pickwickian syndrome]. continue with her CPAP machine. 7. History of peptic ulcer disease. Continue patient on Protonix 40 mg orally once every day. 8. Bilateral kidney stones. No hydronephrosis there is a 2.9 cm dominant right staghorn stone 9. history of pulmonary nodules about 7 mm need to be evaluated as an outpatient. 10. constipation. Increase lactulose to 20 g orally 3 times every day. 11. DVT prophylaxis. Lovenox 40 mg subcutaneously every 24 hours. 12. GI prophylaxis. Continue patient on Protonix 40 mg orally once every day. 13. Likely home tomorrow morning. Objective - Vital Signs Vital signs: Vital Signs Temp 99.4 F 03/27/24 11:23 Pulse 79 03/27/24 11:23 Resp 12 03/27/24 11:23 BP 102/56 03/27/24 11:23 Pulse Ox 98 03/27/24 11:23 FiO2 Intake & Output 03/26/24 03/27/24 03/27/24 18:59 06:59 18:59 Intake Total 780 Output Total 1000 1200 800 Balance -220 -1200 -800 Intake: Intake, IV Titration 240 Amount Dextrose 5%-0.45% NaCl 1, 240 000 ml @ 20 mls/hr IV . Q24H [facility] Rx#:[id number] Oral 540 Output: Urine 1000 1200 800 Other: Voiding Method Bedpan Diaper Diaper Diaper Incontinent Incontinent External Catheter External Catheter External Catheter - Labs CBC & Chem 7: 03/27/24 05:52 03/27/24 05:52 Labs: Abnormal Lab Results - Last 24 Hours (Table) 03/26/24 03/27/24 03/27/24 Range/Units 17:54 05:52 05:52 RBC 3.13 L (3.80-5.40) m/uL Hgb 10.1 L (11.4-16.0) gm/dL Hct 31.6 L (34.0-46.0) % MCV 101.0 H (80.0-100.0) fL Potassium 3.3 L (3.5-5.1) mmol/L Chloride 116 H (98-107) mmol/L AST 49 H (14-36) U/L Total Protein 5.2 L (6.3-8.2) g/dL Albumin 2.5 L (3.5-5.0) g/dL PTH Intact 76.6 H (14.0-72.0) pg/mL
--- NOTE | 2024-03-28 16:46 | P.PN ---
Subjective Progress Note Date: 03/28/24 HISTORY OF PRESENT ILLNESS: This is a 54-year-old female with a previous medical history signif icant for hypertension and hypertensive cardiovascular disease, history of obesity with obstructive sleep apnea and obesity hypoventilation syndrome (pickwickian syndrom), history of peptic ulcer disease status post EGD 06/05/2020 with Endo Clip and gold probe ablation, history of schwannoma of the left brachial praxis status post surgical intervention that resulted in chronic regional pain syndrome [reflex sympathetic dystrophy, history of liver cirrhosis patient has been cared for by Dr. Rodgers. Patient's is the primary caregiver for her and she is wheelchair-bound and bedbound, not ambulatory at all. Patient presented to the emergency department at [facility] because of increased fever and chills temperature up to 102, associated with severe abdominal pain in the right upper quadrant associated with nausea and vomiting and she has not had a bowel movement for the last few days, even though she has been taking her lactulose regularly, patient was seen in the emergency department after she had contacted my office and I recommended for the patient to go to the ER for evaluation she did not have any leukocytosis she was mildly anemic, she did find to have a urinary tract infection, ended up going for a CT scan of the abdomen pelvis that showed a right dominant staghorn calculus about 2.9 cm with bilateral renal calculi that are nonobstructing, she was seen in consultation by urology who recommended to continue with current IV antibiotic, and she may need to go to be transferred to a tertiary care center for possible surgical intervention. 03/26: Patient is sitting up in bed her was at the bedside, she was evaluated and updated about her current condition, urology saw the patient, may recommend transferring the patient to a tertiary care center like [facility] for further evaluation and surgical intervention, I will switch the patient IV antibiotic to ceftriaxone 2 g piggyback every 24 hours since the patient urine culture showed Proteus Mirabella's that is sensitive to ceftriaxone, continue current pain management, discontinue hydrocodone, continue Dilaudid as needed for breakthrough pain currently on morphine sulfate she has been under the care of pain management as an outpatient, we will follow-up with the patient very closely, patient did have a bowel movement today and 1 yesterday, continue lactulose 20 g orally 3 times every day, continue other treatment plan, will follow-up with the patient further recommendation is to follow based on the final decision of urology on whether or not the patient should be transferred to a tertiary care center. 03/27: Patient is laying down in bed in no apparent distress, she is feeling a lot better today, she has no fever or chills, she seems to be tolerating ceftriaxone 2 g piggyback every 24 hours well, she has no abdominal pain, nausea vomiting or diarrhea, she was seen by urology, the final decision of surgery has not been made yet, most likely this will be done as an outpatient, patient will be kept in the hospital for another 24 hours, hopefully she will be discharged home in the next 24 hours and follow-up as an outpatient. 03/28: Patient is laying down in bed she is not in pain today, she has no fever or chills, she did have a 1 episode of low-grade temperature, she has not had a bowel movement despite using lactulose 20 g orally 3-4 times every day, will keep the patient hospital for another 24 hours, I had a long conversation with Dr. Smith regarding her staghorn kidney stone and he is in agreement that to keep the patient on oral antibiotic as an outpatient, follow-up with him as an outpatient in the next week or so I will keep the patient in the hospital for another 24 hours then she can be discharged home tomorrow morning. REVIEW OF SYSTEMS: Constitutional: Positive for documented fever, positive for chills, no night sweats. No weight change. Positive for weakness, fatigue or lethargy. No daytime sleepiness. EENT: No headache. No blurred vision or double vision, no loss of vision. No loss of Hearing, no ringing in the ears, no dizziness. No nasal drainage or congestion. No epistaxis. No sore throat. Lungs: No shortness of breath, no cough, no sputum production. No wheezing. Reports dyspnea with activity. Cardiovascular: No chest pain, no lower extremity edema. No palpitations. No paroxysmal nocturnal dyspnea. No orthopnea. No lightheadedness or dizziness. No syncopal episodes. Abdominal: Reports abdominal pain. positive for nausea, vomiting. No diarrhea. Positive for constipation. No bloody or tarry stools reports loss of appetite. Genitourinary: No dysuria, increased frequency, urgency. No urinary retention. Musculoskeletal: No myalgias. No muscle weakness, positive for gait dysfunction, no frequent falls. No back pain. No neck pain.left arm pain Integumentary: No wounds, no lesions. No rash or pruritus. No unusual bruising. No change in hair or nails. Neurologic: No aphasia. No facial droop. No change in mentation. No head injury. No headache. No paralysis. No paresthesia. Psychiatric: Positive for depression. positive for anxiety. No mood swings. Endocrine: No abnormal blood sugars. No weight change. PHYSICAL EXAMINATION: General: 54-year-old female laying down in bed in no apparent distress HEENT: Head is atraumatic, normocephalic, pupils were equal round reactive to light and recommendation, extraocular muscle movement were intact, sclera nonicteric, conjunctivae were pale, mucous membranes of the mouth are somewhat dry. Neck: Supple, no JVP, normal carotid upstroke bilaterally, no lymphadenopathy. Chest: Decreased breath sounds at the bases, few rhonchi, no expiratory wheezes, no chest wall tenderness, no intercostal retractions. Heart: First heart sound is normal, second heart sound is normal there is systolic ejection murmur 2/6 located in the left sternal border. Abdomen: Soft, mild right upper quadrant tenderness, nondistended, positive bowel sounds. Extremities: There is no edema no calf tenderness DP +2 bilaterally. Neurologic examination: Patient is awake alert and oriented x3 , cranial nerves II-12 appear grossly intact, muscle power were 5 out of 5 in upper extremities and 5 out of 5 in bilateral lower extremities, deep tendon reflexes normal bilaterally. ASSESSMENT AND PLAN: 1. Right pyelonephritis with right staghorn calculus. Continue patient on ceftriaxone 2 g piggyback every 24 hours, final urine culture so far is negative however after 18 hours, I will switch the patient to oral Ceftin 500 mg orally twice every day for the next 7 days as an outpatient. 2. Hypertension and hypertensive cardiovascular disease. Continue patient on metoprolol 25 mg orally twice every day, continue losartan 50 mg at bedtime, monitor the patient blood pressure very closely. 3. Hypothyroidism. Continue patient on Synthroid 50 mcg orally once every day, monitor the patient TSH and free T4 as an outpatient. 4. Mixed hyperlipidemia not taking any statin due to her liver cirrhosis. 5. Anxiety disorder. Continue patient on Wellbutrin SR 200 mg in the morning and 100 mg at bedtime, continue mirtazapine 15 mg orally at bedtime will continue with Xanax as needed. 6. Obesity with obstructive sleep apnea and obesity hypoventilation syndrome [pickwickian syndrome]. continue with her CPAP machine. 7. History of peptic ulcer disease. Continue patient on Protonix 40 mg orally once every day. 8. Bilateral kidney stones. No hydronephrosis there is a 2.9 cm dominant right staghorn stone 9. history of pulmonary nodules about 7 mm need to be evaluated as an outpatient. 10. constipation. Increase lactulose to 20 g orally 3 times every day. 11. DVT prophylaxis. Lovenox 40 mg subcutaneously every 24 hours. 12. GI prophylaxis. Continue patient on Protonix 40 mg orally once every day. 13. Likely home tomorrow morning. Objective - Vital Signs Vital signs: Vital Signs Temp 99.2 F 03/28/24 13:07 Pulse 92 03/28/24 13:07 Resp 18 03/28/24 13:07 BP 133/79 03/28/24 13:07 Pulse Ox 94 L 03/28/24 13:07 FiO2 Intake & Output 03/27/24 03/28/24 03/28/24 18:59 06:59 18:59 Intake Total 480 Output Total 1200 700 Balance -1200 -220 Weight 108.862 kg Intake: Oral 480 Output: Urine 1200 700 Other: Voiding Method Diaper Diaper Diaper Incontinent Incontinent Incontinent External Catheter External Catheter External Catheter - Labs CBC & Chem 7: 03/27/24 05:52 03/27/24 05:52
[2024-03-28 16:57] LABS: Basophils % (A) 0 %; Eosinophils # (A) 0.4 k/uL (0-0.7); Eosinophils % (A) 9 %; HCT 32.3 % (34.0-46.0); HGB 10.2 gm/dL (11.4-16.0); Hypochromasia Moderate; Lymphocytes # (A) 1.2 k/uL (1.0-4.8); Lymphocytes % (A) 26 %; MCH 32.3 pg (25.0-35.0); MCHC 31.7 g/dL (31.0-37.0); MCV 101.7 fL (80.0-100.0); Macrocytosis Slight; Monocytes # (A) 0.4 k/uL (0-1.0); Monocytes % (A) 8 %; Neutrophils # (A) 2.4 k/uL (1.3-7.7); Neutrophils % (A) 53 %; Platelet Count 160 k/uL (150-450); RBC 3.17 m/uL (3.80-5.40); RDW 13.9 % (11.5-15.5); WBC 4.6 k/uL (3.8-10.6)
[2024-03-28 17:18] LABS: African American GFR (CKD) >90 (>60 ml/min/1.73 sqM); Anion Gap 6 mmol/L; Blood Urea Nitrogen 4 mg/dL (7-17); Calcium 10.3 mg/dL (8.4-10.2); Carbon Dioxide 21 mmol/L (22-30); Chloride 111 mmol/L (98-107); Glucose 63 mg/dL (74-99); Non-African American GFR(CKD) 83 (>60 ml/min/1.73 sqM); Potassium 3.7 mmol/L (3.5-5.1); Sodium 138 mmol/L (137-145)
[2024-03-29 01:44] LABS: Glucose,Whole Blood 77 mg/dL (70-110)
[2024-03-29 07:37] VITALS: RESP 20
[2024-03-29 14:02] VITALS: BP 121/64; PULSE 114; TEMP 99.9
--- NOTE | 2024-04-03 18:28 | P.DS ---
Providers Date of admission: 03/25/24 03:31 Expected date of discharge: 03/29/24 Attending physician: Erma Nieto Consults: 03/25/24 03:31 Consult Physician Routine Consulting Provider: Donnie Díaz Consult Reason/Comments: Ureterolithiasis Do you want consulting provider notified?: Yes, Notify in am Primary care physician: Erma Nieto Hospital Course: HISTORY OF PRESENT ILLNESS: This is a 54-year-old female with a previous medical history significant for hypertension and hypertensive cardiovascular disease, history of obesity with obstructive sleep apnea and obesity hypoventilation syndrome (pickwickian syndrom), history of peptic ulcer disease status post EGD 06/05/2020 with Endo Clip and gold probe ablation, history of schwannoma of the left brachial praxis status post surgical intervention that resulted in chronic regional pain syndrome [reflex sympathetic dystrophy, history of liver cirrhosis patient has been cared for by Dr. Rodgers. Patient's is the primary caregiver for her and she is wheelchair-bound and bedbound, not ambulatory at all. Patient presented to the emergency department at [facility] because of increased fever and chills temperature up to 102, associated with severe abdominal pain in the right upper quadrant associated with nausea and vomiting and she has not had a bowel movement for the last few days, even though she has been taking her lactulose regularly, patient was seen in the emergency department after she had contacted my office and I recommended for the patient to go to the ER for evaluation she did not have any leukocytosis she was mildly anemic, she did find to have a urinary tract infection, ended up going for a CT scan of the abdomen pelvis that showed a right dominant staghorn calculus about 2.9 cm with bilateral renal calculi that are nonobstructing, she was seen in consultation by urology who recommended to continue with current IV antibiotic, and she may need to go to be transferred to a tertiary care center for possible surgical intervention. 03/26: Patient is sitting up in bed her was at the bedside, she was evaluated and updated about her current condition, urology saw the patient, may recommend transferring the patient to a tertiary care center like [facility] for further evaluation and surgical intervention, I will switch the patient IV antibiotic to ceftriaxone 2 g piggyback every 24 hours since the patient urine culture showed Proteus Mirabella's that is sensitive to ceftriaxone, continue current pain management, discontinue hydrocodone, continue Dilaudid as needed for breakthrough pain currently on morphine sulfate she has been under the care of pain management as an outpatient, we will follow-up with the patient very closely, patient did have a bowel movement today and 1 yesterday, continue lactulose 20 g orally 3 times every day, continue other treatment plan, will follow-up with the patient further recommendation is to follow based on the final decision of urology on whether or not the patient should be transferred to a tertiary care center. 03/27: Patient is laying down in bed in no apparent distress, she is feeling a lot better today, she has no fever or chills, she seems to be tolerating ceftriaxone 2 g piggyback every 24 hours well, she has no abdominal pain, nausea vomiting or diarrhea, she was seen by urology, the final decision of surgery has not been made yet, most likely this will be done as an outpatient, patient will be kept in the hospital for another 24 hours, hopefully she will be discharged home in the next 24 hours and follow-up as an outpatient. 03/28: Patient is laying down in bed she is not in pain today, she has no fever or chills, she did have a 1 episode of low-grade temperature, she has not had a bowel movement despite using lactulose 20 g orally 3-4 times every day, will keep the patient hospital for another 24 hours, I had a long conversation with Dr. Smith regarding her staghorn kidney stone and he is in agreement that to keep the patient on oral antibiotic as an outpatient, follow-up with him as an outpatient in the next week or so I will keep the patient in the hospital for another 24 hours then she can be discharged home tomorrow morning. 03/29: Patient is feeling better today, she did have a bowel movement, she denies any chest pain, shortness of breath, she did not have any fever last night, I spoke with urology yesterday, and the patient can be discharged home and she will follow-up with us as an outpatient, she will follow-up with urology in 1 week, and the decision will be made whether or not patient will need to go for surgery in [facility] or go to [address] [place] [address]. Discharge diagnoses: 1. Right pyelonephritis with right staghorn calculus. 2. Hypertension and hypertensive cardiovascular disease. 3. Hypothyroidism. 4. Mixed hyperlipidemia 5. Anxiety disorder. 6. Obesity with obstructive sleep apnea and obesity hypoventilation syndrome [pickwickian syndrome]. 7. History of peptic ulcer disease. 8. Bilateral kidney stones. 9. history of pulmonary nodules about 7 mm 10. constipation. Patient Condition at Discharge: Good Plan - Discharge Summary Discharge Rx Participant: No New Discharge Prescriptions: No Action Mirtazapine [Remeron] 15 mg PO HS #30 tablet Levothyroxine Sodium [Synthroid] 50 mcg PO DAILY Morphine Sulfate ER [Ms Contin] 60 mg PO Q12HR #6 tab buPROPion SR [Wellbutrin SR] 100 mg PO DAILY ALPRAZolam [Xanax] 0.25 mg PO BID PRN PRN Reason: Anxiety Cephalexin [Keflex] 500 mg PO Q6HR #40 cap Metoprolol Tartrate [Lopressor] 25 mg PO BID Losartan Potassium [Cozaar] 100 mg PO DAILY buPROPion SR [Wellbutrin SR] 200 mg PO HS Morphine Sulfate Ir [MSIR] 15 mg PO BID PRN PRN Reason: Breakthrough Pain Discharge Medication List Mirtazapine [Remeron] 15 mg PO HS #30 tablet 07/28/16 [Rx] Levothyroxine Sodium [Synthroid] 50 mcg PO DAILY 06/04/20 [History] Morphine Sulfate ER [Ms Contin] 60 mg PO Q12HR #6 tab 06/10/20 [Rx] ALPRAZolam [Xanax] 0.25 mg PO BID PRN 08/31/23 [History] Morphine Sulfate Ir [MSIR] 15 mg PO BID PRN 08/31/23 [History] buPROPion SR [Wellbutrin SR] 100 mg PO DAILY 08/31/23 [History] buPROPion SR [Wellbutrin SR] 200 mg PO HS 08/31/23 [History] Cephalexin [Keflex] 500 mg PO Q6HR #40 cap 03/22/24 [Rx] Losartan Potassium [Cozaar] 100 mg PO DAILY 03/25/24 [History] Metoprolol Tartrate [Lopressor] 25 mg PO BID 03/25/24 [History] Follow up Appointment(s)/Referral(s): Erma Nieto MD [Primary Care Provider] - 1-2 days Discharge/Stand Alone Forms: Who Do I Call?, Community Resources, Help In The Home, Personal Electronic Publisher
== END 2024-03-29 17:25 | disposition home or self-care (01) | DRG 694 ==
LOC: EC 20:08 → 4SSUR 03-25 03:31 → 5NMEDONC 03-25 16:56
PROVIDERS: ADMIT Internal Medicine; ATTEND Internal Medicine
DX: N20.0 Calculus of kidney (principal); E66.2 Morbid (severe) obesity with alveolar hypoventilation; G90.512 Complex regional pain syndrome I of left upper limb; K76.6 Portal hypertension; Z68.42 Body mass index [BMI] 45.0-49.9, adult; K74.60 Unspecified cirrhosis of liver; I11.9 Hypertensive heart disease without heart failure; E03.9 Hypothyroidism, unspecified; D64.9 Anemia, unspecified; K59.03 Drug induced constipation; T40.605A Adverse effect of unspecified narcotics, initial encounter; F41.9 Anxiety disorder, unspecified; R91.8 Other nonspecific abnormal finding of lung field; M62.522 Muscle wasting and atrophy, not elsewhere classified, left upper arm; E78.2 Mixed hyperlipidemia; G89.4 Chronic pain syndrome; B96.4 Proteus (mirabilis) (morganii) as the cause of diseases classified elsewhere; Z79.891 Long term (current) use of opiate analgesic; Z79.890 Hormone replacement therapy; Z87.891 Personal history of nicotine dependence; Z99.3 Dependence on wheelchair; Z74.01 Bed confinement status; Z87.440 Personal history of urinary (tract) infections; Z87.11 Personal history of peptic ulcer disease; Z79.899 Other long term (current) drug therapy; Z86.14 Personal history of Methicillin resistant Staphylococcus aureus infection; Z98.84 Bariatric surgery status; Z85.848 Personal history of malignant neoplasm of other parts of nervous tissue; Z87.19 Personal history of other diseases of the digestive system; Z88.1 Allergy status to other antibiotic agents; Z88.0 Allergy status to penicillin; Z87.442 Personal history of urinary calculi
CPT/HCPCS: 36415; 51701; 74018; 74176; 80048; 80053; 81001; 82140; 82272; 83605; 83690; 83970; 85025; 87086; 96361; 96365; 96366; 96375; 96376; 99285

== ENCOUNTER 2024-04-15 21:21 | Emergency (ER) | payer MEDICARE, OTHER ==
[2024-04-15] MEDS: SODIUM CHLORIDE 0.9% 500 ML 500 ML IV STA (23:42)
[2024-04-15] MEDS: PANTOPRAZOLE 40 MG/10 ML VIAL IVP STA (23:43)
[2024-04-15] MEDS: ONDANSETRON 4 MG/2 ML VIAL IVP STA (23:47)
[2024-04-15] MEDS: HYDROmorphone 1 MG/ML 1 ML SYRINGE IVP STA (23:50)
[2024-04-15 23:55] LABS: Basophils % (A) 0 %; Eosinophils # (A) 0.5 k/uL (0-0.7); Eosinophils % (A) 9 %; HCT 31.5 % (34.0-46.0); HGB 10.1 gm/dL (11.4-16.0); Lymphocytes # (A) 1.5 k/uL (1.0-4.8); Lymphocytes % (A) 26 %; MCH 32.7 pg (25.0-35.0); MCHC 32.1 g/dL (31.0-37.0); MCV 101.9 fL (80.0-100.0); Macrocytosis Slight; Mean Platelet Volume 9.4; Monocytes # (A) 0.6 k/uL (0-1.0); Monocytes % (A) 9 %; Neutrophils # (A) 3.1 k/uL (1.3-7.7); Neutrophils % (A) 52 %; Platelet Count 159 k/uL (150-450); RBC 3.09 m/uL (3.80-5.40); RDW 14.8 % (11.5-15.5)
[2024-04-16 00:10] LABS: ALT 15 U/L (4-34); AST 50 U/L (14-36); African American GFR (CKD) 67 (>60 ml/min/1.73 sqM); Albumin 2.3 g/dL (3.5-5.0); Alkaline Phosphatase 159 U/L (38-126); Amylase 36 U/L (30-110); Anion Gap 0 mmol/L; Blood Urea Nitrogen 20 mg/dL (7-17); Calcium 9.7 mg/dL (8.4-10.2); Carbon Dioxide 29 mmol/L (22-30); Chloride 110 mmol/L (98-107); Glucose 88 mg/dL (74-99); Lipase 230 U/L (23-300); Non-African American GFR(CKD) 58 (>60 ml/min/1.73 sqM); Sodium 139 mmol/L (137-145); Total Protein 5.3 g/dL (6.3-8.2)
[2024-04-16 00:14] LABS: INR 1.2 (<1.2); Partial Thromboplastin Time 24.9 sec (22.0-30.0); Prothrombin Time 12.6 sec (10.0-12.5)
[2024-04-16 00:33] LABS: Potassium 4.3 mmol/L (3.5-5.1)
--- NOTE | 2024-04-16 00:47 | ED ---
General Adult HPI - General Chief complaint: Urogenital Stated complaint: Abd Pain Time Seen by Provider: 04/15/24 22:30 Source: patient, RN notes reviewed, old records reviewed Mode of arrival: ambulatory Limitations: no limitations - History of Present Illness Initial comments: Patient is a 54-year-old female presents emergency department complaining of abdominal pain, flank pain, "abdominal swelling." Patient has a past medical history remarkable for chronic pain on oral morphine, asthma, COPD, as well as a known staghorn renal calculus on the right. Has been on antibiotics for this. Has currently been taking Keflex as she has been having "allergic reactions" with other antibiotics. States that she has been having worsening pain over the last few days as well as swelling to the abdomen. Decreased urination as well. Denies any significant constipation, diarrhea, nausea, vomiting. Has no other acute complaints. Is due to have the kidney stone removed on an outpatient basis. Has no other acute complaints at this time. Presents for further evaluation. Did not take her pain meds today. - Related Data Home Medications Medication Instructions Recorded Confirmed Levothyroxine Sodium [Synthroid] 50 mcg PO DAILY 06/04/20 03/25/24 ALPRAZolam [Xanax] 0.25 mg PO BID PRN 08/31/23 03/25/24 Morphine Sulfate Ir [MSIR] 15 mg PO BID PRN 08/31/23 03/25/24 buPROPion SR [Wellbutrin SR] 100 mg PO DAILY 08/31/23 03/25/24 buPROPion SR [Wellbutrin SR] 200 mg PO HS 08/31/23 03/25/24 Losartan Potassium [Cozaar] 100 mg PO DAILY 03/25/24 03/25/24 Metoprolol Tartrate [Lopressor] 25 mg PO BID 03/25/24 03/25/24 Previous Rx's Medication Instructions Recorded Mirtazapine [Remeron] 15 mg PO HS #30 tablet 07/28/16 Morphine Sulfate ER [Ms Contin] 60 mg PO Q12HR #6 tab 06/10/20 Lactulose [Cephulac] 20 gm PO QID ml 03/29/24 Nystatin 100,000 Unit/gm Powd 1 applic TOPICAL TID #120 each 03/29/24 [Mycostatin Powder] cefUROXime axetiL [Ceftin] 500 mg PO BID 10 Days #20 tab 03/29/24 Allergies Allergy/AdvReac Type Severity Reaction Status Date / Time aspirin Allergy Unknown Verified 04/15/24 21:59 ciprofloxacin [From Cipro] Allergy low bp, Verified 04/15/24 21:59 swelling ciprofloxacin HCl Allergy low BP, Verified 04/15/24 21:59 [From Cipro] swelling levofloxacin [From Levaquin] Allergy Rash/Hives Verified 04/15/24 21:59 Penicillins Allergy Rash/Hives Verified 04/15/24 21:59 Review of Systems ROS Statement: Those systems with pertinent positive or pertinent negative responses have been documented in the HPI. Review of Systems: CONST: Denies fever EYES: Denies blurry vision ENT: Denies nasal congestion C/V: Denies Chest pain RESP: Denies shortness of breath GI: Endorses abdominal pain : Denies dysuria SKIN: Denies rash. MSK: Denies joint pain. NEURO: Denies headache ROS Other: All systems not noted in ROS Statement are negative. 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 complicated by a wrist drop and chronic contractures and muscle atrophy in the left upper extremity, complex regional pain syndrome, reflex sympathetic dystrophy, pancreatitis, morbid obesity, history of hemorrhagic cystitis, history of chronic pain, history of GI bleeds, cellulitis, septic in 2016 [facility] History of Any Multi-Drug Resistant Organisms: MRSA Date of last positivie culture/infection: 07/20/16 MDRO Source:: Urine Past Surgical History: Appendectomy, Section, Cholecystectomy Additional Past Surgical History / Comment(s): bowel resection, breast reduction, bilateral ACL repair, left brachial tumor biopsy and lymph node removed, bilateral knee surgery Past Anesthesia/Blood Transfusion Reactions: No Reported Reaction Past Psychological History: Depression Smoking Status: Former smoker Past Alcohol Use History: None Reported Past Drug Use History: None Reported - Past Family History Daughter(s) Family Medical History: No Reported History Father Family Medical History: Diabetes Mellitus Additional Family Medical History / Comment(s): GOUT- ANY OTHER HS UNK Mother Additional Family Medical History / Comment(s): of LUNG DISEASE General Exam - General Exam Comments Initial Comments: General: Appears in mild to moderate distress secondary to abdominal pain. Patient is obese. HEAD: Normal with no signs of head trauma. EYES: PERRLA, EOMI, conjunctiva normal, no discharge. ENT: Hearing grossly intact, normal oropharynx. RESPIRATORY: Clear breath sounds bilaterally. No wheezes, rales, or rhonchi. C/V: Regular rate and rhythm. S1 and S2 auscultated, no edema, peripheral pulses 2+ and intact throughout ABD: Soft, nondistended. Tenderness to palpation over the right flank. No guarding or rebound tenderness. No peritoneal signs. EXT: Normal range of motion, no obvious deformity SKIN: No rashes or lesions observed on exposed skin. NEURO: Alert and oriented x 4. Limitations: no limitations Course Vital Signs 04/15/24 21:56 Temperature 98.2 F Pulse Rate 74 Respiratory 17 Rate Blood Pressure 96/65 O2 Sat by Pulse 96 Oximetry Medical Decision Making - Medical Decision Making Was pt. sent in by a medical professional or institution (, PA, CLOTH BALER, urgent care, hospital, or halfway...) When possible be specific @ -No Did you speak to anyone other than the patient for history (EMS, parent, family, police, friend...)? What history was obtained from this source @ -No Did you review nursing and triage notes (agree or disagree)? Why? @ -I reviewed and agree with nursing and triage notes Were old charts reviewed (outside hosp., previous admission, EMS record, old EKG, old radiological studies, urgent care reports/EKG's, halfway records)? Report findings @ -Reviewed and CT reviewed from March 25, 2024. Revealed a dominant right renal staghorn calculus measuring 2.9 cm at that time with no evidence of obstruction at that time. Differential Diagnosis (chest pain, altered mental status, abdominal pain women, abdominal pain men, vaginal bleeding, weakness, fever, dyspnea, syncope, headache, dizziness, GI bleed, back pain, seizure, CVA, palpatations, mental health, musculoskeletal)? @ -Differential Abdominal Pain Women: Appendicitis, Cholecystitis, diverticulosis, ischemic bowel, pancreatitis, hepatitis, UTI, gastroenteritis, AAA, incarcerated hernia, bowel obstruction, constipation, inflammatory bowel, hepatitis, peptic ulcer disease, splenic infarction, perforated viscus, vulvitis, ovarian torsion, PID, kidney stone, placenta abruption, this is not meant to be an all-inclusive list EKG interpreted by me (3pts min.). @ -None done X-rays interpreted by me (1pt min.). @ -None done CT interpreted by me (1pt min.). @ -CT abdomen pelvis reveals the renal stones, mild fecal retention, as well as no other obvious acute process. U/S interpreted by me (1pt. min.). @ -Ultrasound shows bilateral nonobstructing renal stones. What testing was considered but not performed or refused? (CT, X-rays, U/S, labs)? Why? @ -None What meds were considered but not given or refused? Why? @ -None Did you discuss the management of the patient with other professionals (professionals i.e. , PA, CLOTH BALER, lab, RT, psych nurse, oncology social work, packer fuser, t eacher, commissary officer, family caseworker)? Give summary @ -No Was smoking cessation discussed for >3mins.? @ -No Was critical care preformed (if so, how long)? @ -No Were there social determinants of health that impacted care today? How? (Homelessness, low income, unemployed, alcoholism, drug addiction, transportation, low edu. Level, literacy, decrease access to med. care, snf, rehab)? @ -No Was there de-escalation of care discussed even if they declined (Discuss DNR or withdrawal of care, Hospice)? DNR status @ -No What co-morbidities impacted this encounter? (DM, HTN, Smoking, COPD, CAD, Cancer, CVA, ARF, Chemo, Hep., AIDS, mental health diagnosis, sleep apnea, morbid obesity)? @ -None Was patient admitted / discharged? Hospital course, mention meds given and route, prescriptions, significant lab abnormalities, going to OR and other pertinent info. @ -Based on the patient's presentation and physical exam, presents with right flank pain. Patient is a chronic pain patient has not been taking her medication today at home. Symptoms have been worsening over the last few days. Has been taking Keflex. Was concern for an allergic reaction concerning the pain and her last urination but I did discuss with her this is unlikely to be an allergic reaction however we will repeat CT imaging as well as abdominal labs. Patient was in agreement this plan. She will be given a small dose of IV fluids as well as IV analgesia medications. Patient was in agreement this plan. Patient was found to be retaining urine with bladder scan showing over 500. Diaz catheter placed. Diaz drained over 350 cc of urine. Imaging returned unremarkable. Laboratory studies remarkable for UTI which is known to the patient and no other findings. I discussed results with patient. I believe it is safer to be discharged home at this time. Patient was in agreement this plan. She is already on Keflex and based on most recent urine culture from March 21, 2024, this should be sufficient for treatment. New urine culture was sent. Discussed her Diaz catheter that she now has. Recommended follow-up with her urologist this week as well as her PCP. Strict return precautions discussed. Also recommended she follow-up with her any forward physician for treatment of the kidney stone on the right kidney. She was in agreement this plan. Recommended continuation of her already previously prescribed Keflex as well as her pain medications at home. I instructed the patient to follow up with their PCP in the next 1-3 days. I explained that the patient should return to the emergency department if they experience any worsening symptoms. Strict return precautions were discussed with the patient. The patient expressed understanding of these instructions. I answered all questions that the patient had. The patient was discharged home in [good] condition with their prescriptions and follow up information. Undiagnosed new problem with uncertain prognosis? @ -No Drug Therapy requiring intensive monitoring for toxicity (Heparin, Nitro, Insulin, Cardizem)? @ -No Were any procedures done? @ -No Diagnosis/symptom? @ -Urinary retention with Diaz catheter placed, UTI, kidney stones Acute, or Chronic, or Acute on Chronic? @ -Acute Uncomplicated (without systemic symptoms) or Complicated (systemic symptoms)? @ -Complicated Side effects of treatment? @ -None Exacerbation, Progression, or Severe Exacerbation] @ -No Poses a threat to life or bodily function? @ -Unlikely at this time - Lab Data Result diagrams: 04/15/24 23:10 04/15/24 23:10 Lab Results 04/15/24 04/15/24 04/15/24 Range/Units 23:10 23:10 23:10 WBC 6.0 (3.8-10.6) k/uL RBC 3.09 L (3.80-5.40) m/uL Hgb 10.1 L (11.4-16.0) gm/dL Hct 31.5 L (34.0-46.0) % MCV 101.9 H (80.0-100.0) fL MCH 32.7 (25.0-35.0) pg MCHC 32.1 (31.0-37.0) g/dL RDW 14.8 (11.5-15.5) % Plt Count 159 (150-450) k/uL MPV 9.4 Neutrophils % 52 % Lymphocytes % 26 % Monocytes % 9 % Eosinophils % 9 % Basophils % 0 % Neutrophils # 3.1 (1.3-7.7) k/uL Lymphocytes # 1.5 (1.0-4.8) k/uL Monocytes # 0.6 (0-1.0) k/uL Eosinophils # 0.5 (0-0.7) k/uL Basophils # 0.0 (0-0.2) k/uL Macrocytosis Slight PT 12.6 H (10.0-12.5) sec INR 1.2 H (<1.2) APTT 24.9 (22.0-30.0) sec Sodium 139 (137-145) mmol/L Potassium 4.3 (3.5-5.1) mmol/L Chloride 110 H (98-107) mmol/L Carbon Dioxide 29 (22-30) mmol/L Anion Gap 0 mmol/L BUN 20 H (7-17) mg/dL Creatinine 1.10 H (0.52-1.04) mg/dL Est GFR (CKD-EPI)AfAm 67 (>60 ml/min/1.73 sqM) Est GFR (CKD-EPI)NonAf 58 (>60 ml/min/1.73 sqM) Glucose 88 (74-99) mg/dL Plasma Lactic Acid Jesus (0.7-2.0) mmol/L Calcium 9.7 (8.4-10.2) mg/dL Total Bilirubin 1.0 (0.2-1.3) mg/dL AST 50 H (14-36) U/L ALT 15 (4-34) U/L Alkaline Phosphatase 159 H (38-126) U/L Total Protein 5.3 L (6.3-8.2) g/dL Albumin 2.3 L (3.5-5.0) g/dL Amylase 36 (30-110) U/L Lipase 230 (23-300) U/L Urine Color Urine Appearance (Clear) Urine pH (5.0-8.0) Ur Specific [employer] (1.001-1.035) Urine Protein (Negative) Urine Glucose (UA) (Negative) Urine Ketones (Negative) Urine Blood (Negative) Urine Nitrite (Negative) Urine Bilirubin (Negative) Urine Urobilinogen (<2.0) mg/dL Ur Leukocyte Esterase (Negative) Urine RBC (0-5) /hpf Urine WBC (0-5) /hpf Urine WBC Clumps (None) /hpf Urine Bacteria (None) /hpf Hyaline Casts (0-2) /lpf Urine Mucus (None) /hpf Urine HCG, Qual (Not Detectd) 04/15/24 04/16/24 04/16/24 Range/Units 23:10 00:52 00:52 WBC (3.8-10.6) k/uL RBC (3.80-5.40) m/uL Hgb (11.4-16.0) gm/dL Hct (34.0-46.0) % MCV (80.0-100.0) fL MCH (25.0-35.0) pg MCHC (31.0-37.0) g/dL RDW (11.5-15.5) % Plt Count (150-450) k/uL MPV Neutrophils % % Lymphocytes % % Monocytes % % Eosinophils % % Basophils % % Neutrophils # (1.3-7.7) k/uL Lymphocytes # (1.0-4.8) k/uL Monocytes # (0-1.0) k/uL Eosinophils # (0-0.7) k/uL Basophils # (0-0.2) k/uL Macrocytosis PT (10.0-12.5) sec INR (<1.2) APTT (22.0-30.0) sec Sodium (137-145) mmol/L Potassium (3.5-5.1) mmol/L Chloride (98-107) mmol/L Carbon Dioxide (22-30) mmol/L Anion Gap mmol/L BUN (7-17) mg/dL Creatinine (0.52-1.04) mg/dL Est GFR (CKD-EPI)AfAm (>60 ml/min/1.73 sqM) Est GFR (CKD-EPI)NonAf (>60 ml/min/1.73 sqM) Glucose (74-99) mg/dL Plasma Lactic Acid Jesus 1.1 (0.7-2.0) mmol/L Calcium (8.4-10.2) mg/dL Total Bilirubin (0.2-1.3) mg/dL AST (14-36) U/L ALT (4-34) U/L Alkaline Phosphatase (38-126) U/L Total Protein (6.3-8.2) g/dL Albumin (3.5-5.0) g/dL Amylase (30-110) U/L Lipase (23-300) U/L Urine Color Yellow Urine Appearance Cloudy H (Clear) Urine pH 6.5 (5.0-8.0) Ur Specific [employer] 1.019 (1.001-1.035) Urine Protein 1+ H (Negative) Urine Glucose (UA) Negative (Negative) Urine Ketones Negative (Negative) Urine Blood Large H (Negative) Urine Nitrite Negative (Negative) Urine Bilirubin Negative (Negative) Urine Urobilinogen 3.0 (<2.0) mg/dL Ur Leukocyte Esterase Large H (Negative) Urine RBC >182 H (0-5) /hpf Urine WBC >182 H (0-5) /hpf Urine WBC Clumps Rare H (None) /hpf Urine Bacteria Many H (None) /hpf Hyaline Casts 40 H (0-2) /lpf Urine Mucus Rare H (None) /hpf Urine HCG, Qual Not Detected (Not Detectd) Disposition Clinical Impression: UTI (urinary tract infection), Urinary retention, Diaz catheter in place, Kidney stone Disposition: HOME SELF-CARE Condition: Good Instructions (If sedation given, give patient instructions): Urinary Tract Infection in Women (ED), Diaz Catheter Placement and Care (ED) Additional Instructions: Follow-up with urology as well as your PCP regarding the urinary retention. Continue with Keflex (cephalexin). PCP can follow-up on urine culture. Is patient prescribed a controlled substance at d/c from ED?: No Referrals: Erma Nieto MD [Primary Care Provider] - 1-2 days Time of Disposition: 01:56
--- NOTE | 2024-04-16 01:21 | US ---
EXAM: US Retroperitoneal Limited, Renal CLINICAL HISTORY: ITS.REASON US Reason: eval for hydronephrosis. known right sided stone TECHNIQUE: Real-time limited ultrasound of the retroperitoneum with image documentation. Significant limited detail due to body habitus. COMPARISON: N CT abdomen pelvis done earlier the same day. FINDINGS: Right kidney: 8.5 cm in length. Re-demonstration large upper and lower pole renal stones, measuring 1.3 cm each. No hydronephrosis. Left kidney: 7.3 cm in length with a 9 mm upper pole renal stone. No hydronephrosis. IMPRESSION: 1. Bilateral non-obstructing renal stones. 2. No change compared to CT done earlier. 3. Limited detail due to body habitus.
--- NOTE | 2024-04-16 01:25 | CT ---
EXAM: CT Abdomen and Pelvis With Intravenous Contrast CLINICAL HISTORY: ITS.REASON CT Reason: abdominal pain TECHNIQUE: Axial computed tomography images of the abdomen and pelvis with intravenous contrast. CTDI is 71.8 mGy and DLP is 3544 mGy-cm. This CT exam was performed using one or more of the following dose reduction techniques: automated exposure control, adjustment of the mA and/or kV according to patient size, and/or use of iterative reconstruction technique. COMPARISON: CT abdomen and pelvis March 25, 2034. FINDINGS: Lung bases: Unremarkable. No mass. No consolidation. ABDOMEN: Liver: Unremarkable. No mass. Gallbladder and bile ducts: Cholecystectomy. No ductal dilation. Pancreas: Unremarkable. No mass. No ductal dilation. Spleen: Unremarkable. No splenomegaly. Adrenals: Unremarkable. No mass. Kidneys and ureters: Multiple bilateral nonobstructing renal stones, measuring up to 1.8 cm in the RIGHT kidney. Stomach and bowel: Mild fecal retention, correlate for constipation. Diverticulosis, without acute diverticulitis. No small bowel obstruction. No free intraperitoneal air. PELVIS: Appendix: No findings to suggest acute appendicitis. Bladder: Unremarkable. No mass. Reproductive: Unremarkable as visualized. ABDOMEN and PELVIS: Intraperitoneal space: Unremarkable. No free air. No significant fluid collection. Bones/joints: Degenerative changes of the spine. No acute fracture. No dislocation. Soft tissues: Unremarkable. Vasculature: Atherosclerotic changes of the aorta. No abdominal aortic aneurysm. Lymph nodes: Unremarkable. No enlarged lymph nodes. IMPRESSION: 1. Cholecystectomy. 2. Multiple bilateral nonobstructing renal stones, measuring up to 1.8 cm in the RIGHT kidney. 3. Mild fecal retention, correlate for constipation. 4. Diverticulosis, without acute diverticulitis. No small bowel obstruction. No free intraperitoneal air.
[2024-04-16 01:35] LABS: Appearance,Urine Cloudy (Clear); Bacteria,Urine Many /hpf; Bilirubin,Urine Negative (Negative); Blood,Urine Large (Negative); Color,Urine Yellow; Glucose,Urine (UA) Negative (Negative); Hyaline Casts,Urine 40 /lpf (0-2); Ketones,Urine Negative (Negative); Leukocyte Esterase,Urine Large (Negative); Mucus,Urine Rare /hpf; Nitrite,Urine Negative (Negative); PH, Urine 6.5 (5.0-8.0); Protein,Urine 1+ (Negative); RBC,Urine >182 /hpf (0-5); Specific Gravity,Urine 1.019 (1.001-1.035); WBC,Urine >182 /hpf (0-5)
[2024-04-16] MEDS: HYDROmorphone 0.5 MG/0.5 ML SYRINGE IVP STA (02:00)
[2024-04-16 02:29] VITALS: BP 114/59; PULSE 64; RESP 18; TEMP 98.7
== END 2024-04-16 02:36 | disposition home or self-care (01) ==
LOC: EC 21:21
CPT/HCPCS: 36415; 51702; 51798; 74177; 76770; 80053; 81001; 81025; 82150; 83605; 83690; 85025; 85610; 85730; 87077; 87086; 87186; 96361; 96374; 96375; 96376; 99284

== ENCOUNTER → 2024-06-09 | Outpatient (CLI) | payer MEDICARE, OTHER ==
[~2024-06-09] MED LIST: DOBUTamine DRIP for NUC MED 500 MG in DEXTROSE/WATER 1 250ML.BAG IV PRN; DOBUTamine DRIP for NUC MED 500 MG/250 ML BAG IV ONE
--- NOTE | 2024-06-09 17:31 | CA ---
Dobutamine Stress Echocardiogram Report Nati Loaiza Age: 54 Gender: F : 1970 Exam Date: 06/09/2024 11:32 Exam Location: [facility] Ordering Physician: Erma Nieto MD Referring Physician: FERN, Provider Network Analyst: Aishwarya Calles RDCS Technologist: Ht (in): 60 Wt (lb): 225 Procedure CPT: Indication: Z01.810 PREPROCEDURAL CARDIOVASCULAR EXAMINATION ICD-9 Codes: Rhythm: Patient History: PRE-OP CLEARANCE Cardiac Medications: METOPROLOL, LISINOPRIL Medications in past 24 hours: Contrast: Definity Total Dose (mL): 2 Stress Results Protocol: Dobutamine Peak Dose (???g/kg/min): Duration (min:sec): Atropine:(mg) Target HR: 143 Double Product: [id number] Resting HR: 73 Resting BP: 104 / 84 Peak HR: 99 Peak BP: 104 / 84 Max Predicted HR: 168 59 % Max Predicted HR Stress Summary: BP Response: Reason for Termination: DIRECTED PER CERTIFIED ETHICAL HACKER Cardiac Symptoms: NO SYMPTOMS ECG Analysis Resting EKG: Normal left ventricular size wall motion systolic function Stress EKG: Patient was given intravenous dobutamine as per protocol also received Definity contrast and atropine. Patient could only obtain 59% of predicted maximal heart rate there were no EKG changes Arrhythmia: None Echo Analysis Base Echo Analysis: Normal left ventricular size wall motion systolic function Low Echo Anaylsis: Normal Peak Echo Analysis: Normal hyperdynamic response Recovery Echo: Normal MEASUREMENTS (Male/Female) Normal Values CONCLUSIONS Inconclusive dobutamine stress echo secondary to inability to attain target heart rate Patient could only attain 59% of predicted maximal heart rate and no meaningful evaluation for ischemia can be made on this study Dr. Neeraj Rodgers MD (Electronically Signed) Final Date: 09 June 2024 17:30
== END | disposition home or self-care (01) ==
LOC: RADNMMAIN 11:02
PROVIDERS: ATTEND Internal Medicine
DX: Z01.810 Encounter for preprocedural cardiovascular examination (principal)
CPT/HCPCS: C8930; J1250; Q9957; 93351

== ENCOUNTER 2024-07-17 18:04 | Inpatient (IN) | payer MEDICARE, OTHER ==
--- NOTE | 2024-07-17 18:44 | ED ---
General Adult HPI - General Chief complaint: Urogenital Stated complaint: Right flank pain Time Seen by Provider: 07/17/24 18:08 Source: patient, EMS, RN notes reviewed Mode of arrival: EMS Limitations: no limitations - History of Present Illness Initial comments: Patient is a 54-year-old female present to the emergency department with concerns for right flank pain. Onset of symptoms was around 6 hours. Discomfort remains. Patient has had some nausea and vomiting. Patient denies confusion. Patient denies new weakness. - Related Data Home Medications Medication Instructions Recorded Confirmed Levothyroxine Sodium [Synthroid] 50 mcg PO DAILY 06/04/20 07/17/24 Morphine Sulfate Ir [MSIR] 15 mg PO BID PRN 08/31/23 07/17/24 buPROPion SR [Wellbutrin SR] 100 mg PO DAILY 08/31/23 07/17/24 buPROPion SR [Wellbutrin SR] 200 mg PO HS 08/31/23 07/17/24 Losartan Potassium [Cozaar] 100 mg PO HS 03/25/24 07/17/24 Metoprolol Tartrate [Lopressor] 25 mg PO BID 03/25/24 07/17/24 ALPRAZolam [Xanax] 0.25 mg PO BID PRN 07/17/24 07/17/24 Ascorbic Acid [Vitamin C] 1,000 mg PO DAILY 07/17/24 07/17/24 Calcium Carbonate [Calcium] 600 mg PO DAILY 07/17/24 07/17/24 Cephalexin [Keflex] 500 mg PO Q8HR 07/17/24 07/17/24 Cyclobenzaprine [Flexeril] 10 mg PO TID PRN 07/17/24 07/17/24 Lactulose [Cephulac] 20 gm PO BID 07/17/24 07/17/24 Multivitamins, Thera [Multivitamin 1 tab PO DAILY 07/17/24 07/17/24 (formulary)] Previous Rx's Medication Instructions Recorded Mirtazapine [Remeron] 15 mg PO HS #30 tablet 07/28/16 Morphine Sulfate ER [Ms Contin] 60 mg PO Q12HR #6 tab 06/10/20 Allergies Allergy/AdvReac Type Severity Reaction Status Date / Time aspirin Allergy Unknown Verified 07/17/24 18:52 ciprofloxacin [From Cipro] Allergy low bp, Verified 07/17/24 18:52 swelling, Anaphylaxis ciprofloxacin HCl Allergy low BP, Verified 07/17/24 18:52 [From Cipro] swelling, Anaphylaxis levofloxacin [From Levaquin] Allergy Rash/Hives Verified 07/17/24 18:52 Penicillins Allergy Anaphylaxis Verified 07/17/24 18:52 Review of Systems ROS Statement: Those systems with pertinent positive or pertinent negative responses have been documented in the HPI. ROS Other: All systems not noted in ROS Statement are negative. Constitutional: Denies: fever Eyes: Denies: eye pain ENT: Denies: ear pain Respiratory: Denies: dyspnea Cardiovascular: Denies: chest pain Gastrointestinal: Reports: as per HPI, abdominal pain, nausea, vomiting Genitourinary: Reports: hematuria Musculoskeletal: Denies: back pain Neurological: Denies: headache, weakness Past Medical History Past Medical History: Asthma, COPD Additional Past Medical History / Comment(s): Pickwikian syndrome, kidney stones, History of schwannoma of the brachial plexus status post surgical re section complicated by a wrist drop and chronic contractures and muscle atrophy in the left upper extremity, complex regional pain syndrome, reflex sympathetic dystrophy, pancreatitis, morbid obesity, history of hemorrhagic cystitis, history of chronic pain, history of GI bleeds, cellulitis, septic in 2016 from[facility] History of Any Multi-Drug Resistant Organisms: MRSA Date of last positivie culture/infection: 07/20/16 MDRO Source:: Urine Past Surgical History: Appendectomy, Section, Cholecystectomy Additional Past Surgical History / Comment(s): bowel resection, breast reduction, bilateral ACL repair, left brachial tumor biopsy and lymph node removed, bilateral knee surgery Past Anesthesia/Blood Transfusion Reactions: No Reported Reaction Past Psychological History: Depression Smoking Status: Former smoker Past Alcohol Use History: None Reported Past Drug Use History: None Reported - Past Family History Daughter(s) Family Medical History: No Reported History Father Family Medical History: Diabetes Mellitus Additional Family Medical History / Comment(s): GOUT- ANY OTHER HS UNK Mother Additional Family Medical History / Comment(s): of LUNG DISEASE General Exam Limitations: no limitations General appearance: alert, in no apparent distress Head exam: Present: normocephalic Eye exam: Present: normal appearance ENT exam: Present: mucous membranes dry Neck exam: Present: normal inspection Respiratory exam: Present: normal lung sounds bilaterally Cardiovascular Exam: Present: regular rate, normal rhythm GI/Abdominal exam: Present: soft, tenderness (Minimal tenderness right flank) Extremities exam: Present: other (Left hand contracture which patient states is chronic) Neurological exam: Present: alert Psychiatric exam: Present: normal affect, normal mood Skin exam: Present: normal color Course Vital Signs 07/17/24 18:05 Temperature 98.9 F Pulse Rate 61 Respiratory 18 Rate Blood Pressure 112/86 O2 Sat by Pulse 94 L Oximetry Medical Decision Making - Medical Decision Making MDM back was pt. sent in by a medical professional or institution (, PA, WINDOWS SERVER SPECIALIST, urgent care, hospital, or halfway...) When possible be specific @ -No Did you speak to anyone other than the patient for history (EMS, parent, family, police, friend...)? What history was obtained from this source @ - arrives later and states that patient has had some episodes of confusion and was concerned about her ammonia level Did you review nursing and triage notes (agree or disagree)? Why? @ -I reviewed and agree with nursing and triage notes Were old charts reviewed (outside hosp., previous admission, EMS record, old EKG, old radiological studies, urgent care reports/EKG's, halfway records)? Report findings @ -No old charts were reviewed Differential Diagnosis (chest pain, altered mental status, abdominal pain women, abdominal pain men, vaginal bleeding, weakness, fever, dyspnea, syncope, headache, dizziness, GI bleed, back pain, seizure, CVA, palpatations, mental health, musculoskeletal)? @ -Differential Altered Mental Status: Hypoglycemia, DKA, hypercapnia, ETOH, overdose, CO poisoning, trauma, myxedema coma, HTN encephalopathy, infection, encephalitis, psychosis, intercranial hemorrhage, hepatic encephalopathy, meningitis, CVA, this is not meant to be an all-inclusive list Differential Abdominal Pain Women: Appendicitis, Cholecystitis, diverticulosis, ischemic bowel, pancreatitis, hepatitis, UTI, gastroenteritis, AAA, incarcerated hernia, bowel obstruction, constipation, inflammatory bowel, hepatitis, peptic ulcer disease, splenic infarction, perforated viscus, vulvitis, ovarian torsion, PID, kidney stone, placenta abruption, this is not meant to be an all-inclusive list EKG interpreted by me (3pts min.). @ -As above X-rays interpreted by me (1pt min.). @ -None done CT interpreted by me (1pt min.). @ -CT scan shows nonobstructing renal stone U/S interpreted by me (1pt. min.). @ -None done What testing was considered but not performed or refused? (CT, X-rays, U/S, labs)? Why? @ -None What meds were considered but not given or refused? Why? @ -None Did you discuss the management of the patient with other professionals (professionals i.e. DrAmparo, PA, WINDOWS SERVER SPECIALIST, lab, RT, psych nurse, social media strategist, cement railroad car loader, teacher, defence force senior officer, case work aide)? Give summary @ -Case was discussed with Dr. Brian petersen who is familiar with this patient. He does recommend admission with consults with infectious disease and urology. Also recommends lactulose 3 times daily and xifran 550 Was smoking cessation discussed for >3mins.? @ -No Was critical care preformed (if so, how long)? @ -No Were there social determinants of health that impacted care today? How? (Homelessness, low income, unemployed, alcoholism, drug addiction, transportation, low edu. Level, literacy, decrease access to med. care, fci, rehab)? @ -No Was there de-escalation of care discussed even if they declined (Discuss DNR or withdrawal of care, Hospice)? DNR status @ -No What co-morbidities impacted this encounter? (DM, HTN, Smoking, COPD, CAD, Cancer, CVA, ARF, Chemo, Hep., AIDS, mental health diagnosis, sleep apnea, morbid obesity)? @ -History of hepatic encephalopathy Was patient admitted / discharged? Hospital course, mention meds given and route, prescriptions, significant lab abnormalities, going to OR and other p ertinent info. @ -Patient presents with reported confusion as well as urinary symptoms and right sided abdominal discomfort. Patient has concern for UTI as well as hepatic encephalopathy. Patient to be admitted. Admission orders written. Patient and family updated Undiagnosed new problem with uncertain prognosis? @ -No Drug Therapy requiring intensive monitoring for toxicity (Heparin, Nitro, Insulin, Cardizem)? @ -No Were any procedures done? @ -No Diagnosis/symptom? @ -UTI, hepatic encephalopathy Acute, or Chronic, or Acute on Chronic? @ -Acute, acute Uncomplicated (without systemic symptoms) or Complicated (systemic symptoms)? @ -Default Side effects of treatment? @ -No Exacerbation, Progression, or Severe Exacerbation? @ -No Poses a threat to life or bodily function? How? (Chest pain, [place], [place], pneumonia, PE, COPD, DKA, ARF, appy, cholecystitis, CVA, Diverticulitis, Homicidal, Suicidal, threat to staff... and all critical care pts) @ -Renal and neurological function - Lab Data Result diagrams: 07/17/24 18:45 07/17/24 18:45 Lab Results 07/17/24 07/17/24 07/17/24 Range/Units 18:45 18:45 18:45 WBC 6.1 (3.8-10.6) k/uL RBC 3.16 L (3.80-5.40) m/uL Hgb 10.4 L (11.4-16.0) gm/dL Hct 30.5 L (34.0-46.0) % MCV 96.4 (80.0-100.0) fL MCH 32.9 (25.0-35.0) pg MCHC 34.1 (31.0-37.0) g/dL RDW 13.5 (11.5-15.5) % Plt Count 142 L (150-450) k/uL MPV 8.3 Neutrophils % 61 % Lymphocytes % 16 % Monocytes % 9 % Eosinophils % 9 % Basophils % 1 % Neutrophils # 3.7 (1.3-7.7) k/uL Lymphocytes # 1.0 (1.0-4.8) k/uL Monocytes # 0.6 (0-1.0) k/uL Eosinophils # 0.5 (0-0.7) k/uL Basophils # 0.0 (0-0.2) k/uL PT 12.0 (10.0-12.5) sec INR 1.1 (<1.2) APTT 26.4 (22.0-30.0) sec Sodium (137-145) mmol/L Potassium (3.5-5.1) mmol/L Chloride (98-107) mmol/L Carbon Dioxide (22-30) mmol/L Anion Gap mmol/L BUN (7-17) mg/dL Creatinine (0.52-1.04) mg/dL Est GFR (CKD-EPI)AfAm (>60 ml/min/1.73 sqM) Est GFR (CKD-EPI)NonAf (>60 ml/min/1.73 sqM) Glucose (74-99) mg/dL Calcium (8.4-10.2) mg/dL Total Bilirubin (0.2-1.3) mg/dL AST (14-36) U/L ALT (4-34) U/L Alkaline Phosphatase (38-126) U/L Ammonia (<30) umol/L Total Protein (6.3-8.2) g/dL Albumin (3.5-5.0) g/dL Amylase (30-110) U/L Lipase (23-300) U/L Urine Color Yellow Urine Appearance Turbid H (Clear) Urine pH 7.0 (5.0-8.0) Ur Specific Lit[place] 1.016 (1.001-1.035) Urine Protein 1+ H (Negative) Urine Glucose (UA) Negative (Negative) Urine Ketones Negative (Negative) Urine Blood Large H (Negative) Urine Nitrite Negative (Negative) Urine Bilirubin Negative (Negative) Urine Urobilinogen <2.0 (<2.0) mg/dL Ur Leukocyte Esterase Large H (Negative) Urine RBC >182 H (0-5) /hpf Urine WBC >182 H (0-5) /hpf Ur Squamous Epith Cells 25 H (0-4) /hpf Urine Bacteria Rare H (None) /hpf 07/17/24 07/17/24 Range/Units 18:45 18:45 WBC (3.8-10.6) k/uL RBC (3.80-5.40) m/uL Hgb (11.4-16.0) gm/dL Hct (34.0-46.0) % MCV (80.0-100.0) fL MCH (25.0-35.0) pg MCHC (31.0-37.0) g/dL RDW (11.5-15.5) % Plt Count (150-450) k/uL MPV Neutrophils % % Lymphocytes % % Monocytes % % Eosinophils % % Basophils % % Neutrophils # (1.3-7.7) k/uL Lymphocytes # (1.0-4.8) k/uL Monocytes # (0-1.0) k/uL Eosinophils # (0-0.7) k/uL Basophils # (0-0.2) k/uL PT (10.0-12.5) sec INR (<1.2) APTT (22.0-30.0) sec Sodium 140 (137-145) mmol/L Potassium 4.2 (3.5-5.1) mmol/L Chloride 110 H (98-107) mmol/L Carbon Dioxide 26 (22-30) mmol/L Anion Gap 4 mmol/L BUN 24 H (7-17) mg/dL Creatinine 1.39 H (0.52-1.04) mg/dL Est GFR (CKD-EPI)AfAm 50 (>60 ml/min/1.73 sqM) Est GFR (CKD-EPI)NonAf 44 (>60 ml/min/1.73 sqM) Glucose 93 (74-99) mg/dL Calcium 9.6 (8.4-10.2) mg/dL Total Bilirubin 1.5 H (0.2-1.3) mg/dL AST 51 H (14-36) U/L ALT 16 (4-34) U/L Alkaline Phosphatase 118 (38-126) U/L Ammonia 142 H (<30) umol/L Total Protein 5.9 L (6.3-8.2) g/dL Albumin 2.8 L (3.5-5.0) g/dL Amylase 43 (30-110) U/L Lipase 276 (23-300) U/L Urine Color Urine Appearance (Clear) Urine pH (5.0-8.0) Ur Specific Lititz (1.001-1.035) Urine Protein (Negative) Urine Glucose (UA) (Negative) Urine Ketones (Negative) Urine Blood (Negative) Urine Nitrite (Negative) Urine Bilirubin (Negative) Urine Urobilinogen (<2.0) mg/dL Ur Leukocyte Esterase (Negative) Urine RBC (0-5) /hpf Urine WBC (0-5) /hpf Ur Squamous Epith Cells (0-4) /hpf Urine Bacteria (None) /hpf Disposition Clinical Impression: UTI (urinary tract infection), Hepatic encephalopathy syndrome Disposition: ADMITTED IP TO THIS [facility] Is patient prescribed a controlled substance at d/c from ED?: No Referrals: Erma Nieto MD [Primary Care Provider] - 1-2 days Time of Disposition: 20:05
[2024-07-17] MEDS: ONDANSETRON 4 MG/2 ML VIAL IVP STA (18:48)
[2024-07-17] MEDS: FAMOTIDINE 20 MG/2 ML VIAL IV STA (18:49)
[2024-07-17 18:52] LABS: Basophils % (A) 1 %; Eosinophils # (A) 0.5 k/uL (0-0.7); Eosinophils % (A) 9 %; HCT 30.5 % (34.0-46.0); HGB 10.4 gm/dL (11.4-16.0); Lymphocytes % (A) 16 %; MCH 32.9 pg (25.0-35.0); MCHC 34.1 g/dL (31.0-37.0); MCV 96.4 fL (80.0-100.0); Mean Platelet Volume 8.3; Monocytes # (A) 0.6 k/uL (0-1.0); Monocytes % (A) 9 %; Neutrophils # (A) 3.7 k/uL (1.3-7.7); Neutrophils % (A) 61 %; Platelet Count 142 k/uL (150-450); RBC 3.16 m/uL (3.80-5.40); RDW 13.5 % (11.5-15.5); WBC 6.1 k/uL (3.8-10.6)
[2024-07-17] MEDS: SODIUM CHLORIDE 0.9% 1,000 ML IV STA (18:53)
[2024-07-17 18:57] LABS: Appearance,Urine Turbid (Clear); Bacteria,Urine Rare /hpf; Bilirubin,Urine Negative (Negative); Blood,Urine Large (Negative); Color,Urine Yellow; Glucose,Urine (UA) Negative (Negative); Ketones,Urine Negative (Negative); Leukocyte Esterase,Urine Large (Negative); Nitrite,Urine Negative (Negative); Protein,Urine 1+ (Negative); RBC,Urine >182 /hpf (0-5); Specific Gravity,Urine 1.016 (1.001-1.035); Squamous Epithelial Cell,Urine 25 /hpf (0-4); Urobilinogen,Urine <2.0 mg/dL (<2.0); WBC,Urine >182 /hpf (0-5)
[2024-07-17 19:02] LABS: ALT 16 U/L (4-34); African American GFR (CKD) 50 (>60 ml/min/1.73 sqM); Amylase 43 U/L (30-110); Anion Gap 4 mmol/L; Blood Urea Nitrogen 24 mg/dL (7-17); Calcium 9.6 mg/dL (8.4-10.2); Carbon Dioxide 26 mmol/L (22-30); Chloride 110 mmol/L (98-107); Glucose 93 mg/dL (74-99); INR 1.1 (<1.2); Lipase 276 U/L (23-300); Non-African American GFR(CKD) 44 (>60 ml/min/1.73 sqM); Partial Thromboplastin Time 26.4 sec (22.0-30.0); Sodium 140 mmol/L (137-145); Total Bilirubin 1.5 mg/dL (0.2-1.3)
[2024-07-17 19:06] LABS: AST 51 U/L (14-36); Albumin 2.8 g/dL (3.5-5.0); Alkaline Phosphatase 118 U/L (38-126); Potassium 4.2 mmol/L (3.5-5.1); Total Protein 5.9 g/dL (6.3-8.2)
--- NOTE | 2024-07-17 19:37 | CT ---
EXAMINATION TYPE: CT abdomen pelvis wo con DATE OF EXAM: 07/17/2024 7:24 PM COMPARISON: 04/15/2024 CLINICAL INDICATION: Female, 54 years old with history of abdominal pain, TECHNIQUE: Axial images were obtained from above the diaphragm to the pubic rami in the axial plane a t 5 mm thick sections. Reconstructed images are reviewed on the computer in the coronal plane. CONTRAST: mL of . Study performed DLP: mGycm, Automated exposure control for dose reduction was used. FINDINGS: Limited CT sections are obtained the lung bases. There is a 0.9 cm peripheral right lung nodule. Ser ies 201 image 2. This was not identified on multiple prior CT abdomen and pelvis is but is visualized on 08/31/2023 measuring 0.7 cm. Some mild enlargement should be considered. Some mild streak atelectas is is likely present within the dependent lung bases.. CT ABDOMEN: Liver: Normal Spleen: Normal Pancreas: Normal Adrenal glands: The adrenal glands are normal. Gallbladder: Surgically absent Kidneys: No masses are evident. No hydronephrosis is present. No cysts are present. Large nonobstr ucting calcifications are within the right kidney measuring transverse 1.1 cm in the mid upper 1.0 cm mid to lower pole. Two nonobstructing renal stones in the left kidney measuring 0.4 cm each. Aorta: Normal Inferior vena cava: Normal. CT PELVIS: Loops of bowel within the abdomen and pelvis are normal. There are loops of bowel which are incom pletely distended or lack oral contrast limiting their evaluation. Appendix: Normal as visualized. Urinary bladder: Decompressed by Diaz catheter. Genitourinary structures: Uterus is normal. Adnexa are unremarkable. Osseous structures: No suspicious lytic or sclerotic lesions. IMPRESSION: 1. Large right and small left nonobstructing renal stones. 2. Peripheral right lung base nodule, may be minimally larger than the comparison 08/31/2023. [facility], Workstation: [facility], 07/17/2024 7:34 PM
[2024-07-17] MEDS ORDERED: ONDANSETRON 4 MG/2 ML VIAL IVP PRN (20:07)
[2024-07-17] MEDS ORDERED: NALOXONE 0.4 MG/ML 1 ML VIAL IV PRN (20:07)
[2024-07-17] MEDS ORDERED: ACETAMINOPHEN TAB 325 MG TAB PO PRN (20:07)
[2024-07-17] MEDS ORDERED: CYCLOBENZAPRINE 10 MG TAB PO PRN (20:12)
[2024-07-17] MEDS: RIFAXIMIN 550 MG TABLET PO SCH (20:38)
[2024-07-17] MEDS: MIRTAZAPINE 15 MG TAB PO SCH (20:39)
[2024-07-17] MEDS: SODIUM CHLORIDE 0.9% 1,000 ML IV SCH (20:40)
[2024-07-17] MEDS: buPROPion SR 100 MG TABLET.ER PO SCH (21:34)
[2024-07-17] MEDS: MORPHINE SULFATE IR 15 MG TABLET PO PRN (22:24)
[2024-07-17] MEDS: LACTULOSE 20 GM/30 ML CUP PO SCH (22:24)
[2024-07-17] MEDS: METOPROLOL TARTRATE 25 MG TAB PO SCH (22:50)
[2024-07-17] MEDS: LOSARTAN 50 MG TAB PO SCH (22:50)
[2024-07-18] MEDS ORDERED: ZINC OXIDE PASTE (Z-GUARD) 1 APPLIC TOPICAL PRN (02:56)
[2024-07-18] MEDS: LEVOTHYROXINE 50 MCG TAB PO SCH (06:47)
[2024-07-18 08:32] LABS: Protein, Total 5.1 g/dL (6.2-8.2)
[2024-07-18 08:33] LABS: Basophils # (A) 0.09 X 10*3/uL (0.00-0.10); Basophils % (A) 1.5 %; Eosinophils # (A) 0.53 X 10*3/uL (0.04-0.35); Eosinophils % (A) 9.1 %; HCT 27.8 % (37.2-46.3); Lymphocytes % (A) 20.5 %; MCHC 32.4 g/dL (32.0-37.0); MCV 95.9 FL (80.0-97.0); Mean Platelet Volume 11.7 FL (9.5-12.2); Monocytes # (A) 0.68 X 10*3/uL (0.20-1.00); Monocytes % (A) 11.6 %; NRBC Per 100 WBC 0 X 10*3/uL (0.00-0.01); Neutrophils # (A) 3.32 X 10*3/uL (1.80-7.70); Platelet Count 141 X 10*3/uL (140-440); RDW 13.9 % (11.5-14.5); WBC 5.84 X 10*3/uL (4.50-10.00)
[2024-07-18 08:38] LABS: ALT 14 U/L (8-44); AST 32 U/L (13-35); Albumin 2.7 g/dL (3.8-4.9); Albumin/Globulin Ratio 1.04 Ratio (1.60-3.17); Alkaline Phosphatase 114 U/L (41-126); BUN/Creat Ratio 14.43 Ratio (12.00-20.00); Blood Urea Nitrogen 20.2 mg/dL (9.0-27.0); Calcium 9.2 mg/dL (8.7-10.3); Carbon Dioxide 23.8 mmol/L (21.6-31.8); Chloride 112 mmol/L (96-109); Globulin 2.6 g/dL (1.6-3.3); Glucose 87 mg/dL (70-110); Magnesium 1.8 mg/dL (1.5-2.4); Phosphorus 2.3 mg/dL (2.4-5.1); Potassium 3.6 mmol/L (3.5-5.5); Sodium 144 mmol/L (135-145); Total Bilirubin 0.6 mg/dL (0.3-1.2); Total Protein 5.3 g/dL (6.2-8.2)
[2024-07-18 09:01] LABS: % Iron Saturation 15.22 (12.00-45.00); Haptoglobin 55.4 mg/dL (31.2-198.0)
[2024-07-18 09:20] LABS: Reticulocyte % 3.4 % (0.10-1.80)
[2024-07-18] MEDS: ENOXAPARIN 40 MG/0.4 ML SYRINGE SQ SCH (09:37)
[2024-07-18] MEDS: MULTIVITAMINS, THERA 1 EACH TAB PO SCH (09:37)
[2024-07-18] MEDS: buPROPion SR 100 MG TABLET.ER PO SCH (09:46)
[2024-07-18] MEDS: MORPHINE SULFATE ER 60 MG TABLET PO SCH (12:07)
--- NOTE | 2024-07-18 12:11 | P.HPIM ---
History of Present Illness H&P Date: 07/18/24 Chief Complaint: Metabolic encephalopathy/recurrent UTI HISTORY OF PRESENT ILLNESS: This is a 54-year-old female with a previous medical history significant for hypertension and hypertensive cardiovascular disease, history of obesity with obstructive sleep apnea and obesity hypoventilation syndrome (pickwickian syndrom), history of peptic ulcer disease status post EGD 06/05/2020 with Endo Clip and gold probe ablation, history of schwannoma of the left brachial praxis status post surgical intervention that resulted in chronic regional pain syndrome [reflex sympathetic dystrophy, history of liver cirrhosis patient has been cared for by Dr. Rodgers. Patient's is the primary caregiver for her and she is wheelchair-bound and bedbound, not ambulatory at all. Patient presented to the emergency department at [facility] because of mental status changes according to her that started over the last few days, patient is known to have a staghorn calculus of the right kidney by 2.9 cm with bilateral renal calculi for which she was supposed to follow-up with a urologist at [facility] for surgical intervention that has been postponed from May till July I believe patient has been getting pulsed therapy with Keflex to prevent recurrent urinary tract infection, apparently patient was brought into the ER for evaluation she was found to have UTI, and her ammonia level was elevated 140, she was started back on ceftriaxone 2 g piggyback every 24 hours, infectious disease consultation, she was also started on lactulose 20 g orally 3 times every day as well as Xifaxan 550 mg orally twice every day ammonia level will be repeated next 24 hours, infectious disease consultation along with urology consultation was obtained. REVIEW OF SYSTEMS: Constitutional: Positive for documented fever, positive for chills, no night s weats. No weight change. Positive for weakness, fatigue or lethargy. No daytime sleepiness. EENT: headache. No blurred vision or double vision, no loss of vision. No loss of Hearing, no ringing in the ears, no dizziness. No nasal drainage or congestion. No epistaxis. No sore throat. Lungs: No shortness of breath, no cough, no sputum production. No wheezing. Reports dyspnea with activity. Cardiovascular: No chest pain, no lower extremity edema. No palpitations. No paroxysmal nocturnal dyspnea. No orthopnea. No lightheadedness or dizziness. No syncopal episodes. Abdominal: Reports abdominal pain. positive for nausea, vomiting. No diarrhea. Positive for constipation. No bloody or tarry stools reports loss of appetite. Genitourinary: No dysuria, increased frequency, urgency. No urinary retention. Musculoskeletal: No myalgias. No muscle weakness, positive for gait dysfun ction, no frequent falls. No back pain. No neck pain.left arm pain Integumentary: No wounds, no lesions. No rash or pruritus. No unusual bruising. No change in hair or nails. Neurologic: No aphasia. No facial droop. Positive for change in mentation. No head injury. No headache. No paralysis. No paresthesia. Psychiatric: Positive for depression. positive for anxiety. No mood swings. Endocrine: No abnormal blood sugars. No weight change. PAST MEDICAL HISTORY: Hypertension and hypertensive cardiovascular disease. Liver cirrhosis with portal hypertension and possible chronic portal vein thrombus. Obesity with obstructive sleep apnea with obesity hypoventilation syndrome [pickwickian syndrome] Kidney stones. Chronic regional pain syndrome Schwannoma of the left brachial plexus. chronic pain syndrome. Anxiety disorder. Gait dysfunction. Peptic ulcer disease. Hypothyroidism Mixed hyperlipidemia Colonoscopy 2009 PAST SURGICAL HISTORY: Cholecystectomy. EGD with Endo Clip and gold probe ablation for duodenal ulcer 06/05/2020 Appendectomy. Bowel resection Bilateral ACL repair Bilateral knee surgery Left brachial plexus biopsy with lymph node dissection Bilateral breast reduction surgery. SOCIAL HISTORY: Patient used to smoke about a pack every day since she was 17-year-old, and she quit more than 15 years ago, she denies any alcohol ingestion, no drug use or abuse, she lives with her who is the primary caregiver. FAMILY HISTORY: Father is 65-year-old with history of hypertension mother at the age of 51 from idiopathic pulmonary fibrosis patient has 1 sister 50-year-old with history of osteoarthritis 1 son alive and healthy and 2 daughters no major medical problems. PHYSICAL EXAMINATION: General: 54-year-old female laying down in bed in no apparent distress HEENT: Head is atraumatic, normocephalic, pupils were equal round reactive to light and recommendation, extraocular muscle movement were intact, sclera nonicteric, conjunctivae were pale, mucous membranes of the mouth are somewhat dry. Neck: Supple, no JVP, normal carotid upstroke bilaterally, no lymphadenopathy. Chest: Decreased breath sounds at the bases, few rhonchi, no expiratory wheezes, no chest wall tenderness, no intercostal retractions. Heart: First heart sound is normal, second heart sound is normal there is systolic ejection murmur 2/6 located in the left sternal border. Abdomen: Soft, mild right upper quadrant tenderness, nondistended, positive b owel sounds. Extremities: There is no edema no calf tenderness DP +2 bilaterally. Neurologic examination: Patient is awake alert and oriented x3 , cranial nerves II-12 appear grossly intact, muscle power were 5 out of 5 in right upper extremity 3 out of 5 in the left upper extremity and 3 out of 5 in bilateral lower extremities, deep tendon reflexes normal bilaterally. ASSESSMENT AND PLAN: 1. Right staghorn calculus with bilateral renal calculi and recurrent UTI with SIRS. Patient was seen and evaluated by urology at [facility] she is scheduled to go for surgical intervention I believe month, patient will be admitted to the hospital urine culture, blood culture, start the patient on ceftriaxone 2 g IV piggyback every 24 hours, ID consultation, urology consultation will be obtained. 2. 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 Continue lactulose 20 g orally 3 times every day, add Xifaxan 550 mg orally twice every day repeat ammonia level tomorrow morning. 3. Acute kidney injury due to acute tubular necrosis. Continue IV fluid in the form of normal saline, repeat the patient CMP tomorrow morning. 4. Anemia of chronic disease. Check iron TIBC ferritin level, B12 folic acid, LDH haptoglobin, reticulocyte count, kappa lambda light chain, serum protein electrophoresis to complete the evaluation. 5. Hypertension and hypertensive cardiovascular disease. Continue patient on metoprolol 25 mg orally twice every day, continue losartan 50 mg at bedtime, monitor the patient blood pressure very closely. 6. Hypothyroidism. Continue patient on Synthroid 50 mcg orally once every day, monitor the patient TSH and free T4 as an outpatient. 7. Mixed hyperlipidemia not taking any statin due to her liver cirrhosis. 8. Anxiety disorder. Continue patient on Wellbutrin SR 200 mg in the morning and 100 mg at bedtime, continue mirtazapine 15 mg orally at bedtime will continue with Xanax as needed. 9. Obesity with obstructive sleep apnea and obesity hypoventilation syndrome [pickwickian syndrome]. continue with her CPAP machine. 10. History of peptic ulcer disease. Continue patient on Protonix 40 mg orally once every day. 11. Bilateral kidney stones. No hydronephrosis there is a 2.9 cm dominant right staghorn stone 12. history of pulmonary nodules about 7 mm need to be evaluated as an outpatient. He is being planned at [facility] I believe next month 13. constipation. Increase lactulose to 20 g orally 3 times every day. 14. DVT prophylaxis. Lovenox 40 mg subcutaneously every 24 hours. 15. GI prophylaxis. Continue patient on Protonix 40 mg orally once every day. 16. Admit to inpatient estimated length of stay 2 midnights. 17. Full code. 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 complicated by a wrist drop and chronic contractures and muscle atrophy in the left upper extremity, complex regional pain syndrome, reflex sympathetic dystrophy, pancreatitis, morbid obesity, history of hemorrhagic cystitis, history of chronic pain, history of GI bleeds, cellulitis, septic in 2016 fromUTI, brain aneurysm History of Any Multi-Drug Resistant Organisms: MRSA Date of last positivie culture/infection: 07/20/16 MDRO Source:: Urine Past Surgical History: Appendectomy, Section, Cholecystectomy Additional Past Surgical History / Comment(s): bowel resection, breast reduction, bilateral ACL repair, left brachial tumor biopsy and lymph node removed, bilateral knee surgery Past Anesthesia/Blood Transfusion Reactions: No Reported Reaction Past Psychological History: Depression Additional Psychological History / Comment(s): PT SAW DR MALIK DEVRIES IN [facility]([address]) [phone] AFIA TELLEZ [phone]. Smoking Status: Former smoker Past Alcohol Use History: None Reported Additional Past Alcohol Use History / Comment(s): Patient states that she is a lifelong nonsmoker. She denies any medical marijuana, marijuana or street drug or alcohol use. Patient lives at home with her and 2 sons that are 20 and 22 years of age. There is a cat in the home. Patient is currently residing at [facility] for rehab. Past Drug Use History: None Reported - Past Family History Daughter(s) Family Medical History: No Reported History Father Family Medical History: Diabetes Mellitus Additional Family Medical History / Comment(s): GOUT- ANY OTHER HS UNK Mother Additional Family Medical History / Comment(s): of LUNG DISEASE Medications and Allergies Home Medications Medication Instructions Recorded Confirmed Type Mirtazapine [Remeron] 15 mg PO HS #30 tablet 07/28/16 07/17/24 Rx Levothyroxine Sodium [Synthroid] 50 mcg PO DAILY 06/04/20 07/17/24 History Morphine Sulfate ER [Ms Contin] 60 mg PO Q12HR #6 tab 06/10/20 07/17/24 Rx Morphine Sulfate Ir [MSIR] 15 mg PO BID PRN 08/31/23 07/17/24 History buPROPion SR [Wellbutrin SR] 100 mg PO DAILY 08/31/23 07/17/24 History buPROPion SR [Wellbutrin SR] 200 mg PO HS 08/31/23 07/17/24 History Losartan Potassium [Cozaar] 100 mg PO HS 03/25/24 07/17/24 History Metoprolol Tartrate [Lopressor] 25 mg PO BID 03/25/24 07/17/24 History ALPRAZolam [Xanax] 0.25 mg PO BID PRN 07/17/24 07/17/24 History Ascorbic Acid [Vitamin C] 1,000 mg PO DAILY 07/17/24 07/17/24 History Calcium Carbonate [Calcium] 600 mg PO DAILY 07/17/24 07/17/24 History Cephalexin [Keflex] 500 mg PO Q8HR 07/17/24 07/17/24 History Cyclobenzaprine [Flexeril] 10 mg PO TID PRN 07/17/24 07/17/24 History Lactulose [Cephulac] 20 gm PO BID 07/17/24 07/17/24 History Multivitamins, Thera [Multivitamin 1 tab PO DAILY 07/17/24 07/17/24 History (formulary)] Allergies Allergy/AdvReac Type Severity Reaction Status Date / Time aspirin Allergy Unknown Verified 07/17/24 18:52 ciprofloxacin [From Cipro] Allergy low bp, Verified 07/17/24 18:52 swelling, Anaphylaxis ciprofloxacin HCl Allergy low BP, Verified 07/17/24 18:52 [From Cipro] swelling, Anaphylaxis levofloxacin [From Levaquin] Allergy Rash/Hives Verified 07/17/24 18:52 Penicillins Allergy Anaphylaxis Verified 07/17/24 18:52 Physical Exam Vitals: Vital Signs Temp Pulse Pulse Resp BP BP Pulse Ox 07/17/24 21:58 98.2 F 81 16 127/78 96 07/17/24 21:37 98.2 F 89 18 99/57 98 07/17/24 20:43 78 18 100/56 97 07/17/24 19:45 79 18 112/51 97 07/17/24 18:05 98.9 F 61 18 112/86 94 L Intake and Output 07/17/24 07/17/24 07/18/24 14:59 22:59 06:59 Other: Weight 115.666 kg Results CBC & Chem 7: 07/17/24 18:45 07/17/24 18:45 Labs: Abnormal Lab Results - Last 24 Hours (Table) 07/17/24 07/17/24 07/17/24 Range/Units 18:45 18:45 18:45 RBC 3.16 L (3.80-5.40) m/uL Hgb 10.4 L (11.4-16.0) gm/dL Hct 30.5 L (34.0-46.0) % Plt Count 142 L (150-450) k/uL Chloride 110 H (98-107) mmol/L BUN 24 H (7-17) mg/dL Creatinine 1.39 H (0.52-1.04) mg/dL Total Bilirubin 1.5 H (0.2-1.3) mg/dL AST 51 H (14-36) U/L Ammonia (<30) umol/L Total Protein 5.9 L (6.3-8.2) g/dL Albumin 2.8 L (3.5-5.0) g/dL Urine Appearance Turbid H (Clear) Urine Protein 1+ H (Negative) Urine Blood Large H (Negative) Ur Leukocyte Esterase Large H (Negative) Urine RBC >182 H (0-5) /hpf Urine WBC >182 H (0-5) /hpf Ur Squamous Epith Cells 25 H (0-4) /hpf Urine Bacteria Rare H (None) /hpf 07/17/24 Range/Units 18:45 RBC (3.80-5.40) m/uL Hgb (11.4-16.0) gm/dL Hct (34.0-46.0) % Plt Count (150-450) k/uL Chloride (98-107) mmol/L BUN (7-17) mg/dL Creatinine (0.52-1.04) mg/dL Total Bilirubin (0.2-1.3) mg/dL AST (14-36) U/L Ammonia 142 H (<30) umol/L Total Protein (6.3-8.2) g/dL Albumin (3.5-5.0) g/dL Urine Appearance (Clear) Urine Protein (Negative) Urine Blood (Negative) Ur Leukocyte Esterase (Negative) Urine RBC (0-5) /hpf Urine WBC (0-5) /hpf Ur Squamous Epith Cells (0-4) /hpf Urine Bacteria (None) /hpf Thrombosis Risk Factor Assmnt - Choose All That Apply Any of the Below Risk Factors Present?: Yes Each Factor Represents 1 point: Age 41-60 years, Obesity (BMI >25) Thrombosis Risk Factor Assessment Total Risk Factor Score: 2 Thrombosis Risk Factor Assessment Level: Low Risk
--- NOTE | 2024-07-18 14:00 | P.GSCN ---
History of Present Illness Consult date: 07/18/24 Reason for Consult: Renal calculus, UTI Requesting physician: Erma Nieto History of present illness: Patient is a 54-year-old white female with a known staghorn calculus of the right kidney. She has had chronic Proteus UTIs as a result of this, and was referred to [facility] for a percutaneous nephrolithotomy. This was originally scheduled in May but ultimately rescheduled until next month. She has been treated with intermittent Keflex to prevent UTIs. She presented to the ER with mental status changes and was admitted. CT scan shows the known right staghorn renal calculus, as well as 2 small left upper pole renal calculi measuring 3 to 4 mm each. There is no evidence of hydronephrosis. She is receiving ceftriaxone. Other medical conditions include hypertension with hypertensive cardiovascular disease, obesity, obstructive sleep apnea, cirrhosis, and RSD of the left upper extremity. Review of Systems - Constitutional Reports chills, Reports fever - Genitourinary Genitourinary: Reports kidney stones, Denies dysuria, Denies hematuria - Neurological Reports confusion Past Medical History Past Medical History: Asthma, COPD Additional Past Medical History / Comment(s): Pickwikian syndrome, kidney st ones, 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 complicated by a wrist drop and chronic contractures and muscle atrophy in the left upper extremity, complex regional pain syndrome, reflex sympathetic dystrophy, pancreatitis, morbid obesity, history of hemorrhagic cy stitis, history of chronic pain, history of GI bleeds, cellulitis, septic in 2016 fromUTI, brain aneurysm History of Any Multi-Drug Resistant Organisms: MRSA Year Discovered:: 07/20/16 MDRO Source:: Urine Past Surgical History: Appendectomy, Section, Cholecystectomy Additional Past Surgical History / Comment(s): bowel resection, breast reduction, bilateral ACL repair, left brachial tumor biopsy and lymph node removed, bilateral knee surgery Past Anesthesia/Blood Transfusion Reactions: No Reported Reaction Past Psychological History: Depression Additional Psychological History / Comment(s): PT SAW DR MALIK DEVRIES IN [facility]([address]) [phone] AFIA TELLEZ [phone]. Smoking Status: Former smoker Past Alcohol Use History: None Reported Additional Past Alcohol Use History / Comment(s): Patient states that she is a lifelong nonsmoker. She denies any medical marijuana, marijuana or street drug or alcohol use. Patient lives at home with her and 2 sons that are 20 and 22 years of age. There is a cat in the home. Patient is currently residing at [facility] for rehab. Past Drug Use History: None Reported - Past Family History Daughter(s) Family Medical History: No Reported History Father Family Medical History: Diabetes Mellitus Additional Family Medical History / Comment(s): GOUT- ANY OTHER HS UNK Mother Additional Family Medical History / Comment(s): of LUNG DISEASE Medications and Allergies Home Medications Medication Instructions Recorded Confirmed Type Mirtazapine [Remeron] 15 mg PO HS #30 tablet 07/28/16 07/17/24 Rx Levothyroxine Sodium [Synthroid] 50 mcg PO DAILY 06/04/20 07/17/24 History Morphine Sulfate ER [Ms Contin] 60 mg PO Q12HR #6 tab 06/10/20 07/17/24 Rx Morphine Sulfate Ir [MSIR] 15 mg PO BID PRN 08/31/23 07/17/24 History buPROPion SR [Wellbutrin SR] 100 mg PO DAILY 08/31/23 07/17/24 History buPROPion SR [Wellbutrin SR] 200 mg PO HS 08/31/23 07/17/24 History Losartan Potassium [Cozaar] 100 mg PO HS 03/25/24 07/17/24 History Metoprolol Tartrate [Lopressor] 25 mg PO BID 03/25/24 07/17/24 History ALPRAZolam [Xanax] 0.25 mg PO BID PRN 07/17/24 07/17/24 History Ascorbic Acid [Vitamin C] 1,000 mg PO DAILY 07/17/24 07/17/24 History Calcium Carbonate [Calcium] 600 mg PO DAILY 07/17/24 07/17/24 History Cephalexin [Keflex] 500 mg PO Q8HR 07/17/24 07/17/24 History Cyclobenzaprine [Flexeril] 10 mg PO TID PRN 07/17/24 07/17/24 History Lactulose [Cephulac] 20 gm PO BID 07/17/24 07/17/24 History Multivitamins, Thera [Multivitamin 1 tab PO DAILY 07/17/24 07/17/24 History (formulary)] Allergies Allergy/AdvReac Type Severity Reaction Status Date / Time aspirin Allergy Unknown Verified 07/17/24 18:52 ciprofloxacin [From Cipro] Allergy low bp, Verified 07/17/24 18:52 swelling, Anaphylaxis ciprofloxacin HCl Allergy low BP, Verified 07/17/24 18:52 [From Cipro] swelling, Anaphylaxis levofloxacin [From Levaquin] Allergy Rash/Hives Verified 07/17/24 18:52 Penicillins Allergy Anaphylaxis Verified 07/17/24 18:52 Surgical - Exam Vital Signs Temp Pulse Resp BP Pulse Ox 98.9 F 61 18 112/86 94 L 07/17/24 18:05 07/17/24 18:05 07/17/24 18:05 07/17/24 18:05 07/17/24 18:05 - General well developed, well nourished, no distress - Respiratory normal respiratory effort - Abdomen Abdomen: soft, non tender, no guarding, no rigid, no rebound - Psychiatric oriented to time, oriented to person, oriented to place, speech is normal, memory intact Results - Labs 07/18/24 03:48 07/18/24 03:48 Abnormal Lab Results - Last 24 Hours (Table) 07/17/24 07/17/24 07/17/24 Range/Units 18:45 18:45 18:45 RBC 3.16 L (3.80-5.40) m/uL Hgb 10.4 L (11.4-16.0) gm/dL Hct 30.5 L (34.0-46.0) % Plt Count 142 L (150-450) k/uL Eosinophils # (0.04-0.35) X 10*3/uL Retic Count (0.10-1.80) % Chloride 110 H (98-107) mmol/L BUN 24 H (7-17) mg/dL Creatinine 1.39 H (0.52-1.04) mg/dL Est GFR (CKD-EPI) (>=60) Phosphorus (2.4-5.1) mg/dL Iron (50-170) UG/DL Transferrin (204.0-354.0) mg/dL Total Bilirubin 1.5 H (0.2-1.3) mg/dL AST 51 H (14-36) U/L Ammonia (<30) umol/L Total Protein 5.9 L (6.3-8.2) g/dL Total Protein (PEP) (6.2-8.2) g/dL Albumin 2.8 L (3.5-5.0) g/dL Albumin/Globulin Ratio (1.60-3.17) Ratio Vitamin B12 (200.0-944.0) pg/mL Urine Appearance Turbid H (Clear) Urine Protein 1+ H (Negative) Urine Blood Large H (Negative) Ur Leukocyte Esterase Large H (Negative) Urine RBC >182 H (0-5) /hpf Urine WBC >182 H (0-5) /hpf Ur Squamous Epith Cells 25 H (0-4) /hpf Urine Bacteria Rare H (None) /hpf 07/17/24 07/18/24 07/18/24 Range/Units 18:45 03:48 03:48 RBC 2.90 L (3.80-5.40) m/uL Hgb 9.0 L (11.4-16.0) gm/dL Hct 27.8 L (34.0-46.0) % Plt Count (150-450) k/uL Eosinophils # 0.53 H (0.04-0.35) X 10*3/uL Retic Count (0.10-1.80) % Chloride 112 H (98-107) mmol/L BUN (7-17) mg/dL Creatinine (0.52-1.04) mg/dL Est GFR (CKD-EPI) 45 L (>=60) Phosphorus 2.3 L (2.4-5.1) mg/dL Iron (50-170) UG/DL Transferrin (204.0-354.0) mg/dL Total Bilirubin (0.2-1.3) mg/dL AST (14-36) U/L Ammonia 142 H (<30) umol/L Total Protein 5.3 L (6.3-8.2) g/dL Total Protein (PEP) (6.2-8.2) g/dL Albumin 2.7 L (3.5-5.0) g/dL Albumin/Globulin Ratio 1.04 L (1.60-3.17) Ratio Vitamin B12 (200.0-944.0) pg/mL Urine Appearance (Clear) Urine Protein (Negative) Urine Blood (Negative) Ur Leukocyte Esterase (Negative) Urine RBC (0-5) /hpf Urine WBC (0-5) /hpf Ur Squamous Epith Cells (0-4) /hpf Urine Bacteria (None) /hpf 07/18/24 07/18/24 07/18/24 Range/Units 03:48 03:48 03:48 RBC (3.80-5.40) m/uL Hgb (11.4-16.0) gm/dL Hct (34.0-46.0) % Plt Count (150-450) k/uL Eosinophils # (0.04-0.35) X 10*3/uL Retic Count 3.40 H (0.10-1.80) % Chloride (98-107) mmol/L BUN (7-17) mg/dL Creatinine (0.52-1.04) mg/dL Est GFR (CKD-EPI) (>=60) Phosphorus (2.4-5.1) mg/dL Iron 35 L (50-170) UG/DL Transferrin 164.0 L (204.0-354.0) mg/dL Total Bilirubin (0.2-1.3) mg/dL AST (14-36) U/L Ammonia (<30) umol/L Total Protein (6.3-8.2) g/dL Total Protein (PEP) 5.1 L (6.2-8.2) g/dL Albumin (3.5-5.0) g/dL Albumin/Globulin Ratio (1.60-3.17) Ratio Vitamin B12 1416.0 H (200.0-944.0) pg/mL Urine Appearance (Clear) Urine Protein (Negative) Urine Blood (Negative) Ur Leukocyte Esterase (Negative) Urine RBC (0-5) /hpf Urine WBC (0-5) /hpf Ur Squamous Epith Cells (0-4) /hpf Urine Bacteria (None) /hpf 07/18/24 Range/Units 04:48 RBC (3.80-5.40) m/uL Hgb (11.4-16.0) gm/dL Hct (34.0-46.0) % Plt Count (150-450) k/uL Eosinophils # (0.04-0.35) X 10*3/uL Retic Count (0.10-1.80) % Chloride (98-107) mmol/L BUN (7-17) mg/dL Creatinine (0.52-1.04) mg/dL Est GFR (CKD-EPI) (>=60) Phosphorus (2.4-5.1) mg/dL Iron (50-170) UG/DL Transferrin (204.0-354.0) mg/dL Total Bilirubin (0.2-1.3) mg/dL AST (14-36) U/L Ammonia 180 H (<30) umol/L Total Protein (6.3-8.2) g/dL Total Protein (PEP) (6.2-8.2) g/dL Albumin (3.5-5.0) g/dL Albumin/Globulin Ratio (1.60-3.17) Ratio Vitamin B12 (200.0-944.0) pg/mL Urine Appearance (Clear) Urine Protein (Negative) Urine Blood (Negative) Ur Leukocyte Esterase (Negative) Urine RBC (0-5) /hpf Urine WBC (0-5) /hpf Ur Squamous Epith Cells (0-4) /hpf Urine Bacteria (None) /hpf Diabetes panel 07/17/24 07/18/24 Range/Units 18:45 03:48 Sodium 140 144 (137-145) mmol/L Potassium 4.2 3.6 (3.5-5.1) mmol/L Chloride 110 H 112 H (98-107) mmol/L Carbon Dioxide 26 23.8 (22-30) mmol/L BUN 24 H 20.2 (7-17) mg/dL Creatinine 1.39 H 1.4 (0.52-1.04) mg/dL Glucose 93 87 (74-99) mg/dL Calcium 9.6 9.2 (8.4-10.2) mg/dL AST 51 H 32 (14-36) U/L ALT 16 14 (4-34) U/L Alkaline Phosphatase 118 114 (38-126) U/L Total Protein 5.9 L 5.3 L (6.3-8.2) g/dL Albumin 2.8 L 2.7 L (3.5-5.0) g/dL Calcium panel 07/17/24 07/18/24 Range/Units 18:45 03:48 Calcium 9.6 9.2 (8.4-10.2) mg/dL Phosphorus 2.3 L (2.4-5.1) mg/dL Albumin 2.8 L 2.7 L (3.5-5.0) g/dL Pituitary panel 07/17/24 07/18/24 Range/Units 18:45 03:48 Sodium 140 144 (137-145) mmol/L Potassium 4.2 3.6 (3.5-5.1) mmol/L Chloride 110 H 112 H (98-107) mmol/L Carbon Dioxide 26 23.8 (22-30) mmol/L BUN 24 H 20.2 (7-17) mg/dL Creatinine 1.39 H 1.4 (0.52-1.04) mg/dL Glucose 93 87 (74-99) mg/dL Calcium 9.6 9.2 (8.4-10.2) mg/dL Adrenal panel 07/17/24 07/18/24 Range/Units 18:45 03:48 Sodium 140 144 (137-145) mmol/L Potassium 4.2 3.6 (3.5-5.1) mmol/L Chloride 110 H 112 H (98-107) mmol/L Carbon Dioxide 26 23.8 (22-30) mmol/L BUN 24 H 20.2 (7-17) mg/dL Creatinine 1.39 H 1.4 (0.52-1.04) mg/dL Glucose 93 87 (74-99) mg/dL Calcium 9.6 9.2 (8.4-10.2) mg/dL Total Bilirubin 1.5 H 0.6 (0.2-1.3) mg/dL AST 51 H 32 (14-36) U/L ALT 16 14 (4-34) U/L Alkaline Phosphatase 118 114 (38-126) U/L Total Protein 5.9 L 5.3 L (6.3-8.2) g/dL Albumin 2.8 L 2.7 L (3.5-5.0) g/dL - Imaging CT scan - abdomen: report reviewed, image reviewed Assessment and Plan (1) UTI (urinary tract infection) Current Visit: Yes Status: Acute Code(s): N39.0 - URINARY TRACT INFECTION, S ITE NOT SPECIFIED SNOMED Code(s): 57861928 (2) Nephrolithiasis Current Visit: No Status: Acute Code(s): N20.0 - CALCULUS OF KIDNEY SNOMED Code(s): 00058335 Plan: Continue ceftriaxone, pending urine culture results. I do not anticipate that the patient will require any surgical intervention during this hospitalization. Time with Patient: Greater than 30
[2024-07-18 14:25] LABS: Free Kappa Lt Chain Qnt, Serum 4.33 mg/dL (0.33-1.94); Free Lambda Lt Chain Qnt, Seru 3.08 mg/dL (0.57-2.63)
--- NOTE | 2024-07-19 07:07 | P.CONS ---
History of Present Illness - Reason for Consult Consult date: 07/18/24 UTI Requesting physician: Kale Caldwell - Chief Complaint Mild diseases changes right flank pain x days - History of Present Illness Patient is a 54-year-old female with a past medical history significant for hypertension obesity obstructive sleep apnea peptic ulcer disease, staghorn calculus and history of recurrent UTI patient has been brought to the hospital by the concerning for mental status changes in this patient with symptoms has been going on for the last few days patient was complaining of pain to the right flank area describing it to be sharp moderate intensity with some radiation across the front of the abdominal wall has been complaining of some nausea no vomiting burning of urine no diarrhea patient on presentation to the hospital was afebrile with a low-grade fever of 99 F patient was not tachycardic hypotensive or hypoxic patient did have a white count of 6.1 BUN and creatinine was mildly elevated as well as liver enzymes urine has been positive blood cultures obtained which are currently pending patient did have abdominal pelvis CT which shows a large right and small left nonobstructive renal stone peripheral right lung base nodule patient was started on Rocephin infectious disease was consulted for further management of endocrine therapy Review of Systems Positive point and negatives has been mentioned in the HPI, complete review of systems was performed and all other systems are negative Past Medical History Past Medical History: Asthma, COPD Additional Past Medical History / Comment(s): Pickwikian syndrome, kidney st ones, 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 complicated by a wrist drop and chronic contractures and muscle atrophy in the left upper extremity, complex regional pain syndrome, reflex sympathetic dystrophy, pancreatitis, morbid obesity, history of hemorrhagic cy stitis, history of chronic pain, history of GI bleeds, cellulitis, septic in 2016 fromUTI, brain aneurysm History of Any Multi-Drug Resistant Organisms: MRSA Year Discovered:: 07/20/16 MDRO Source:: Urine Past Surgical History: Appendectomy, Section, Cholecystectomy Additional Past Surgical History / Comment(s): bowel resection, breast reduction, bilateral ACL repair, left brachial tumor biopsy and lymph node removed, bilateral knee surgery Past Anesthesia/Blood Transfusion Reactions: No Reported Reaction Past Psychological History: Depression Additional Psychological History / Comment(s): PT SAW DR MALIK DEVRIES IN [facility]([address]) [phone] AFIA TELLEZ [phone]. Smoking Status: Former smoker Past Alcohol Use History: None Reported Additional Past Alcohol Use History / Comment(s): Patient states that she is a lifelong nonsmoker. She denies any medical marijuana, marijuana or street drug or alcohol use. Patient lives at home with her and 2 sons that are 20 and 22 years of age. There is a cat in the home. Patient is currently residing at [facility] for rehab. Past Drug Use History: None Reported - Past Family History Daughter(s) Family Medical History: No Reported History Father Family Medical History: Diabetes Mellitus Additional Family Medical History / Comment(s): GOUT- ANY OTHER HS UNK Mother Additional Family Medical History / Comment(s): of LUNG DISEASE Medications and Allergies Home Medications Medication Instructions Recorded Confirmed Type Mirtazapine [Remeron] 15 mg PO HS #30 tablet 07/28/16 07/17/24 Rx Levothyroxine Sodium [Synthroid] 50 mcg PO DAILY 06/04/20 07/17/24 History Morphine Sulfate ER [Ms Contin] 60 mg PO Q12HR #6 tab 06/10/20 07/17/24 Rx Morphine Sulfate Ir [MSIR] 15 mg PO BID PRN 08/31/23 07/17/24 History buPROPion SR [Wellbutrin SR] 100 mg PO DAILY 08/31/23 07/17/24 History buPROPion SR [Wellbutrin SR] 200 mg PO HS 08/31/23 07/17/24 History Losartan Potassium [Cozaar] 100 mg PO HS 03/25/24 07/17/24 History Metoprolol Tartrate [Lopressor] 25 mg PO BID 03/25/24 07/17/24 History ALPRAZolam [Xanax] 0.25 mg PO BID PRN 07/17/24 07/17/24 History Ascorbic Acid [Vitamin C] 1,000 mg PO DAILY 07/17/24 07/17/24 History Calcium Carbonate [Calcium] 600 mg PO DAILY 07/17/24 07/17/24 History Cephalexin [Keflex] 500 mg PO Q8HR 07/17/24 07/17/24 History Cyclobenzaprine [Flexeril] 10 mg PO TID PRN 07/17/24 07/17/24 History Lactulose [Cephulac] 20 gm PO BID 07/17/24 07/17/24 History Multivitamins, Thera [Multivitamin 1 tab PO DAILY 07/17/24 07/17/24 History (formulary)] Allergies Allergy/AdvReac Type Severity Reaction Status Date / Time aspirin Allergy Unknown Verified 07/17/24 18:52 ciprofloxacin [From Cipro] Allergy low bp, Verified 07/17/24 18:52 swelling, Anaphylaxis ciprofloxacin HCl Allergy low BP, Verified 07/17/24 18:52 [From Cipro] swelling, Anaphylaxis levofloxacin [From Levaquin] Allergy Rash/Hives Verified 07/17/24 18:52 Penicillins Allergy Anaphylaxis Verified 07/17/24 18:52 Physical Exam Vitals: Vital Signs Temp Pulse Pulse Resp BP BP Pulse Ox 07/18/24 07:39 99.5 F 93 18 113/60 95 07/18/24 02:08 98.5 F 81 16 108/62 97 07/17/24 21:58 98.2 F 81 16 127/78 96 07/17/24 21:37 98.2 F 89 18 99/57 98 07/17/24 20:43 78 18 100/56 97 07/17/24 19:45 79 18 112/51 97 07/17/24 18:05 98.9 F 61 18 112/86 94 L Intake and Output 07/17/24 07/18/24 07/18/24 22:59 06:59 14:59 Intake Total 900 Balance 900 Intake: Intake, IV Titration 900 Amount Sodium Chloride 0.9% 1, 900 000 ml @ 75 mls/hr IV . [id number] Rx#:[id number] Other: Voiding Method Incontinent Indwelling Catheter Weight 115.666 kg GENERAL DESCRIPTION: Middle-aged female lying in bed, no distress. No tachypnea or accessory muscle of respiration use. HEENT: Shows Pallor , no scleral icterus. Oral mucous membrane is dry. NECK: Trachea central, no thyromegaly. LUNGS: Unlabored breathing. Clear to auscultation anteriorly. No wheeze or crackle. HEART: S1, S2, regular rate and rhythm. No loud murmur ABDOMEN: Soft, no tenderness , guarding or rigidity, no organomegaly EXTREMITIES: No edema of feet. SKIN: No rash, no masses palpable. NEUROLOGICAL: The patient is awake, alert, mood and affect normal. Results CBC & Chem 7: 07/18/24 03:48 07/18/24 03:48 Labs: Abnormal Lab Results - Last 24 Hours (Table) 07/17/24 07/17/24 07/17/24 Range/Units 18:45 18:45 18:45 RBC 3.16 L (3.80-5.40) m/uL Hgb 10.4 L (11.4-16.0) gm/dL Hct 30.5 L (34.0-46.0) % Plt Count 142 L (150-450) k/uL Eosinophils # (0.04-0.35) X 10*3/uL Retic Count (0.10-1.80) % Chloride 110 H (98-107) mmol/L BUN 24 H (7-17) mg/dL Creatinine 1.39 H (0.52-1.04) mg/dL Est GFR (CKD-EPI) (>=60) Phosphorus (2.4-5.1) mg/dL Iron (50-170) UG/DL Transferrin (204.0-354.0) mg/dL Total Bilirubin 1.5 H (0.2-1.3) mg/dL AST 51 H (14-36) U/L Ammonia (<30) umol/L Total Protein 5.9 L (6.3-8.2) g/dL Total Protein (PEP) (6.2-8.2) g/dL Albumin 2.8 L (3.5-5.0) g/dL Albumin/Globulin Ratio (1.60-3.17) Ratio Vitamin B12 (200.0-944.0) pg/mL Urine Appearance Turbid H (Clear) Urine Protein 1+ H (Negative) Urine Blood Large H (Negative) Ur Leukocyte Esterase Large H (Negative) Urine RBC >182 H (0-5) /hpf Urine WBC >182 H (0-5) /hpf Ur Squamous Epith Cells 25 H (0-4) /hpf Urine Bacteria Rare H (None) /hpf 07/17/24 07/18/24 07/18/24 Range/Units 18:45 03:48 03:48 RBC 2.90 L (3.80-5.40) m/uL Hgb 9.0 L (11.4-16.0) gm/dL Hct 27.8 L (34.0-46.0) % Plt Count (150-450) k/uL Eosinophils # 0.53 H (0.04-0.35) X 10*3/uL Retic Count (0.10-1.80) % Chloride 112 H (98-107) mmol/L BUN (7-17) mg/dL Creatinine (0.52-1.04) mg/dL Est GFR (CKD-EPI) 45 L (>=60) Phosphorus 2.3 L (2.4-5.1) mg/dL Iron (50-170) UG/DL Transferrin (204.0-354.0) mg/dL Total Bilirubin (0.2-1.3) mg/dL AST (14-36) U/L Ammonia 142 H (<30) umol/L Total Protein 5.3 L (6.3-8.2) g/dL Total Protein (PEP) (6.2-8.2) g/dL Albumin 2.7 L (3.5-5.0) g/dL Albumin/Globulin Ratio 1.04 L (1.60-3.17) Ratio Vitamin B12 (200.0-944.0) pg/mL Urine Appearance (Clear) Urine Protein (Negative) Urine Blood (Negative) Ur Leukocyte Esterase (Negative) Urine RBC (0-5) /hpf Urine WBC (0-5) /hpf Ur Squamous Epith Cells (0-4) /hpf Urine Bacteria (None) /hpf 07/18/24 07/18/24 07/18/24 Range/Units 03:48 03:48 03:48 RBC (3.80-5.40) m/uL Hgb (11.4-16.0) gm/dL Hct (34.0-46.0) % Plt Count (150-450) k/uL Eosinophils # (0.04-0.35) X 10*3/uL Retic Count 3.40 H (0.10-1.80) % Chloride (98-107) mmol/L BUN (7-17) mg/dL Creatinine (0.52-1.04) mg/dL Est GFR (CKD-EPI) (>=60) Phosphorus (2.4-5.1) mg/dL Iron 35 L (50-170) UG/DL Transferrin 164.0 L (204.0-354.0) mg/dL Total Bilirubin (0.2-1.3) mg/dL AST (14-36) U/L Ammonia (<30) umol/L Total Protein (6.3-8.2) g/dL Total Protein (PEP) 5.1 L (6.2-8.2) g/dL Albumin (3.5-5.0) g/dL Albumin/Globulin Ratio (1.60-3.17) Ratio Vitamin B12 1416.0 H (200.0-944.0) pg/mL Urine Appearance (Clear) Urine Protein (Negative) Urine Blood (Negative) Ur Leukocyte Esterase (Negative) Urine RBC (0-5) /hpf Urine WBC (0-5) /hpf Ur Squamous Epith Cells (0-4) /hpf Urine Bacteria (None) /hpf 07/18/24 Range/Units 04:48 RBC (3.80-5.40) m/uL Hgb (11.4-16.0) gm/dL Hct (34.0-46.0) % Plt Count (150-450) k/uL Eosinophils # (0.04-0.35) X 10*3/uL Retic Count (0.10-1.80) % Chloride (98-107) mmol/L BUN (7-17) mg/dL Creatinine (0.52-1.04) mg/dL Est GFR (CKD-EPI) (>=60) Phosphorus (2.4-5.1) mg/dL Iron (50-170) UG/DL Transferrin (204.0-354.0) mg/dL Total Bilirubin (0.2-1.3) mg/dL AST (14-36) U/L Ammonia 180 H (<30) umol/L Total Protein (6.3-8.2) g/dL Total Protein (PEP) (6.2-8.2) g/dL Albumin (3.5-5.0) g/dL Albumin/Globulin Ratio (1.60-3.17) Ratio Vitamin B12 (200.0-944.0) pg/mL Urine Appearance (Clear) Urine Protein (Negative) Urine Blood (Negative) Ur Leukocyte Esterase (Negative) Urine RBC (0-5) /hpf Urine WBC (0-5) /hpf Ur Squamous Epith Cells (0-4) /hpf Urine Bacteria (None) /hpf Assessment and Plan (1) Allergy to multiple antibiotics Current Visit: Yes Status: Acute Code(s): Z88.1 - ALLERGY STATUS TO OTHER ANTIBIOTIC AGENTS SNOMED Code(s): 423652529 (2) UTI (urinary tract infection) Current Visit: Yes Status: Acute Code(s): N39.0 - URINARY TRACT INFECTION, SITE NOT SPECIFIED SNOMED Code(s): 40707447 Plan: 1patient presented to hospital with mental status changes also have right flank pain in this patient who did have a large right-sided kidney stone but no evidence of any hydronephrosis significantly positive UA concerning for complicated UTI likely from to the gram-negative pathogen 2-patient with multiple antibiotic ALLERGIES that would limit the number of antibiotic safe to use 3-Rocephin 2 g daily while waiting for the culture to finalize We will follow on clinical condition and cultures to further adjust medication if needed Thank you for this consultation we will follow the patient along with you Dictation was produced using [employer] dictation software. please excuse any grammatical, word or spelling errors. Time with Patient: Greater than 30
--- NOTE | 2024-07-19 12:12 | P.PN ---
Subjective Progress Note Date: 07/19/24 Principal diagnosis: Right staghorn renal calculus, UTI The patient has a known right renal staghorn calculus and recurrent Proteus UTIs, consistent with a calculus of struvite composition. She is being treated with ceftriaxone, but states that she is not feeling better. She reports right flank swelling. Objective - Vital Signs Vital signs: Vital Signs Temp 98.6 F 07/19/24 07:35 Pulse 84 07/19/24 07:35 Resp 18 07/19/24 07:35 BP 108/52 07/19/24 07:35 Pulse Ox 97 07/19/24 07:35 FiO2 Intake & Output 07/18/24 07/19/24 07/19/24 18:59 06:59 18:59 Intake Total 300 Output Total 800 1400 Balance -500 -1400 Intake: Oral 300 Output: Urine 800 1400 Other: Voiding Method Indwelling Catheter Indwelling Catheter # Bowel Movements 2 1 - Constitutional General appearance: Present: average body habitus, cooperative, no acute distress - Gastrointestinal Gastrointestinal Comment(s): Soft, non-distended, non-tender. Mild thickening of the right flank subcutaneous tissues as noted. There is no cellulitis, fluctuance, or drainage. - Psychiatric Psychiatric: Present: A&O x's 3 - Labs CBC & Chem 7: 07/18/24 03:48 07/18/24 03:48 Labs: Abnormal Lab Results - Last 24 Hours (Table) 07/18/24 07/18/24 Range/Units 03:48 03:48 Free [place] LC, Quant 4.33 H (0.33-1.94) mg/dL Free Lambda LC, Quant 3.08 H (0.57-2.63) mg/dL Microbiology - Last 24 Hours (Table) 07/17/24 18:45 Urine Culture - Final Urine,Voided 07/17/24 20:06 Blood Culture - Preliminary Blood Assessment and Plan (1) UTI (urinary tract infection) Current Visit: Yes Status: Acute Code(s): N39.0 - URINARY TRACT INFECTION, SITE NOT SPECIFIED SNOMED Code(s): 14569431 (2) Nephrolithiasis Current Visit: No Status: Acute Code(s): N20.0 - CALCULUS OF KIDNEY SNOMED Code(s): 81744670 Plan: Urine culture shows mixed concetta, and blood cultures are negative at 24 hours. Nonetheless, I would suggest that the patient be treated with antibiotics appropriate for her previous Proteus UTIs. I reviewed the CT scan, which does show some thickening of the right flank subcutaneous tissues. However, I see no fluid collection. Likewise, I do not see a right perinephric fluid collection or even right perinephric stranding. I discussed with the patient (and her by phone) the fact that she will continue to have UTIs and that her condition will not improve until she undergoes the right percutaneous nephrolithotomy at [facility].
--- NOTE | 2024-07-19 14:34 | P.PN ---
Subjective Progress Note Date: 07/19/24 Interval History: This is a 54-year-old female with a previous medical history significant for hypertension and hypertensive cardiovascular disease, history of obesity with obstructive sleep apnea and obesity hypoventilation syndrome (pickwickian syndrom), history of peptic ulcer disease status post EGD 06/05/2020 with Endo Clip and gold probe ablation, history of schwannoma of the left brachial praxis status post surgical intervention that resulted in chronic regional pain syndrome [reflex sympathetic dystrophy, history of liver cirrhosis patient has been cared for by Dr. Rodgers. Patient's is the primary caregiver for her and she is wheelchair-bound and bedbound, not ambulatory at all. Patient presented to the emergency department at [facility] because of mental status changes according to her that started over the last few days, patient is known to have a staghorn calculus of the right kidney by 2.9 cm with bilateral renal calculi for which she was supposed to follow-up with a urologist at [facility] for surgical intervention that has been postponed from May till July I believe patient has been getting pulsed therapy with Keflex to prevent recurrent urinary tract infection, apparently patient was brought into the ER for evaluation she was found to have UTI, and her ammonia level was elevated 140, she was started back on ceftriaxone 2 g piggyback every 24 hours, infectious disease consultation, she was also started on lactulose 20 g orally 3 times every day as well as Xifaxan 550 mg orally twice every day ammonia level will be repeated next 24 hours, infectious disease consultation along with urology consultation was obtained. 07/19--patient was seen and examined today. Complains of dysuria, right flank pain. Vitals unremarkable, remained afebrile. Urine culture and blood culture negative. WBCs 5.8, hemoglobin 9.0, platelet 141. Creatinine 1.4. Infectious disease and urology following. Neurology recommended follow-up at [facility] for nephrolithotomy. Will consult nephrology. Assessment and plan: 1. Right staghorn calculus with bilateral renal calculi and recurrent UTI with SIRS. Patient was seen and evaluated by urology at [facility] she is scheduled to go for surgical intervention I believe month, patient will be admitted to the hospital urine culture, blood culture Rocephin, urology consult, ID consult. 2. 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 Continue lactulose 20 g orally 3 times every day, add Xifaxan 550 mg orally twice every day repeat ammonia level tomorrow morning. 3. Acute kidney injury due to acute tubular necrosis. Continue IV fluid in the form of normal saline, repeat the patient CMP tomorrow morning. 4. Anemia of chronic disease. Check iron TIBC ferritin level, B12 folic acid, LDH haptoglobin, reticulocyte count, kappa lambda light chain, serum protein electrophoresis to complete the evaluation. 5. Hypertension and hypertensive cardiovascular disease. Continue patient on metoprolol 25 mg orally twice every day, continue losartan 50 mg at bedtime, monitor the patient blood pressure very closely. 6. Hypothyroidism. Continue patient on Synthroid 50 mcg orally once every day, monitor the patient TSH and free T4 as an outpatient. 7. Mixed hyperlipidemia not taking any statin due to her liver cirrhosis. 8. Anxiety disorder. Continue patient on Wellbutrin SR 200 mg in the morning and 100 mg at bedtime, continue mirtazapine 15 mg orally at bedtime will continue with Xanax as needed. 9. Obesity with obstructive sleep apnea and obesity hypoventilation syndrome [pickwickian syndrome]. continue with her CPAP machine. 10. History of peptic ulcer disease. Continue patient on Protonix 40 mg orally once every day. 11. Bilateral kidney stones. No hydronephrosis there is a 2.9 cm dominant right staghorn stone 12. history of pulmonary nodules about 7 mm need to be evaluated as an outpatient. He is being planned at [facility] I believe next month 13. constipation. Increase lactulose to 20 g orally 3 times every day. 14. DVT prophylaxis. Lovenox 40 mg subcutaneously every 24 hours. 15. GI prophylaxis. Continue patient on Protonix 40 mg orally once every day. 16. Admit to inpatient estimated length of stay 2 midnights. 17. Full code. DVT prophylaxis: Monitor vital signs and labs Labs and medication were reviewed. Continue same treatment. Further recommendations as per clinical course of the patient PHYSICAL EXAMINATION: GENERAL: The patient is A&O x3, NAD HEENT: EOMI, Sclerae anicteric, Moist Mucous membranes Neck: Supple, Non tender, No JVD PULMONARY: Equal breath souds B/L, No wheezing, No crackles. CARDIOVASCULAR: S1, S2 present. No murmurs, rubs, or gallops. ABDOMEN: Soft, nontender, nondistended, normoactive bowel sounds. No guarding or rebound tenderness. MUSCULOSKELETAL: No edema, No cyanosis. No clubbing. Normal ROM. Intact peripheral pulses. NEUROLOGICAL: CN 2-12 grossly intact. No FND Skin: No Rash REVIEW OF SYSTEMS: CONSTITUTIONAL: No fever or chills. CARDIOVASCULAR: No chest pain, palpitations or syncope. PULMONARY: No shortness of breath, no cough, sore throat. GASTROINTESTINAL: No nausea, vomiting, diarrhea, abdominal pain. : No Dysuria, urgency, frequency. Extremities: No edema. NEUROLOGICAL: No headaches, no weakness, or numbness Dictation was produced using [employer] dictation software. please excuse any grammatical, word or spelling errors. Objective - Vital Signs Vital signs: Vital Signs Temp 98.9 F 07/19/24 13:25 Pulse 85 07/19/24 13:25 Resp 18 07/19/24 13:25 BP 127/92 07/19/24 13:25 Pulse Ox 95 07/19/24 13:25 FiO2 Intake & Output 07/18/24 07/19/24 07/19/24 18:59 06:59 18:59 Intake Total 300 Output Total 800 1400 Balance -500 -1400 Intake: Oral 300 Output: Urine 800 1400 Other: Voiding Method Indwelling Catheter Indwelling Catheter # Bowel Movements 2 1 - Labs CBC & Chem 7: 07/18/24 03:48 07/18/24 03:48 Labs: Microbiology - Last 24 Hours (Table) 07/18/24 03:48 Blood Culture - Preliminary Blood 07/17/24 18:45 Urine Culture - Final Urine,Voided 07/17/24 20:06 Blood Culture - Preliminary Blood
[2024-07-19] MEDS: MORPHINE SULFATE 4 MG/ML SYRINGE IV PRN (17:10)
[2024-07-20] MEDS: ENOXAPARIN 40 MG/0.4 ML SYRINGE SQ SCH (08:45)
[2024-07-20 09:31] LABS: Basophils % (A) 1.6 %; Eosinophils # (A) 0.75 X 10*3/uL (0.04-0.35); Eosinophils % (A) 11.8 %; HGB 9.7 g/dL (12.0-15.0); Lymphocytes # (A) 1.28 X 10*3/uL (0.90-5.00); Lymphocytes % (A) 20.1 %; MCH 31.8 pg (27.0-32.0); MCHC 32.3 g/dL (32.0-37.0); MCV 98.4 FL (80.0-97.0); Mean Platelet Volume 12.2 FL (9.5-12.2); Monocytes # (A) 0.85 X 10*3/uL (0.20-1.00); Monocytes % (A) 13.3 %; NRBC Per 100 WBC 0 X 10*3/uL (0.00-0.01); Neutrophils # (A) 3.39 X 10*3/uL (1.80-7.70); Platelet Count 170 X 10*3/uL (140-440); RBC 3.05 X 10*6/uL (4.10-5.20); RDW 13.9 % (11.5-14.5); WBC 6.38 X 10*3/uL (4.50-10.00)
--- NOTE | 2024-07-20 09:44 | P.PN ---
Subjective Progress Note Date: 07/19/24 Principal diagnosis: Reason for follow-up is a UTI Patient is a 54-year-old female with a past medical history significant for hypertension obesity obstructive sleep apnea peptic ulcer disease, staghorn calculus and history of recurrent UTI patient has been brought to the hospital by the concerning for mental status changes and right flank pain with concern for possible UTI prompting this consultation. On today's evaluation that is 07/19/2024, patient did not have any fever and denies any chills, patient is breathing comfortably on room air, patient with no chest pain or cough patient still complaining of right-sided abdominal pain but no nausea vomiting or any loose stools. Patient white count is 5.84 creatinine is 1.4 urine cultures so far negative blood cultures are pending Objective - Vital Signs Vital signs: Vital Signs Temp 98.6 F 07/19/24 07:35 Pulse 84 07/19/24 07:35 Resp 18 07/19/24 07:35 BP 108/52 07/19/24 07:35 Pulse Ox 97 07/19/24 07:35 FiO2 Intake & Output 07/18/24 07/19/24 07/19/24 18:59 06:59 18:59 Intake Total 300 Output Total 800 1400 Balance -500 -1400 Intake: Oral 300 Output: Urine 800 1400 Other: Voiding Method Indwelling Catheter Indwelling Catheter # Bowel Movements 2 1 - Exam GENERAL DESCRIPTION: Middle-age female lying in bed in no distress RESPIRATORY SYSTEM: Unlabored breathing , decreased breath sounds at bases HEART: S1 S2 regular rate and rhythm , ABDOMEN: Soft , no tenderness EXTREMITIES: No edema feet - Labs CBC & Chem 7: 07/20/24 03:57 07/18/24 03:48 Labs: Abnormal Lab Results - Last 24 Hours (Table) 07/18/24 07/18/24 Range/Units 03:48 03:48 Free [place] LC, Quant 4.33 H (0.33-1.94) mg/dL Free Lambda LC, Quant 3.08 H (0.57-2.63) mg/dL Microbiology - Last 24 Hours (Table) 07/17/24 18:45 Urine Culture - Final Urine,Voided 07/17/24 20:06 Blood Culture - Preliminary Blood Assessment and Plan (1) Allergy to multiple antibiotics Current Visit: Yes Status: Acute Code(s): Z88.1 - ALLERGY STATUS TO OTHER ANTIBIOTIC AGENTS SNOMED Code(s): 865362410 (2) UTI (urinary tract infection) Current Visit: Yes Status: Acute Code(s): N39.0 - URINARY TRACT INFECTION, SITE NOT SPECIFIED SNOMED Code(s): 59081161 Plan: 1patient presented to hospital with mental status changes also have right flank pain in this patient who did have a large right-sided kidney stone but no evidence of any hydronephrosis significantly positive UA concerning for complicated UTI likely from to the gram-negative pathogen 2-patient with multiple antibiotic ALLERGIES that would limit the number of antibiotic safe to use 3-patient will be treated with Rocephin 2 g daily while waiting for the culture to finalize Dictation was produced using [employer] dictation software. please excuse any grammatical, word or spelling errors. Time with Patient: Less than 30
[2024-07-20 09:47] LABS: BUN/Creat Ratio 11.22 Ratio (12.00-20.00); Blood Urea Nitrogen 10.1 mg/dL (9.0-27.0); Calcium 9.4 mg/dL (8.7-10.3); Carbon Dioxide 19.9 mmol/L (21.6-31.8); Chloride 114 mmol/L (96-109); Glucose 121 mg/dL (70-110); Potassium 3.9 mmol/L (3.5-5.5); Sodium 141 mmol/L (135-145)
--- NOTE | 2024-07-20 12:57 | P.NPCON ---
History of Present Illness - Reason for Consult Consult date: 07/20/24 acute renal failure - Chief Complaint AMS - History of Present Illness Patient is a 54 yo female presented to hospital for AMS. Has history of nephrolithiasis and chronic urinary infection related to staghorn calculi. She follows at [facility] and scheduled to undergo procedure for removal next month. She was noted to be more confused at home and brought to ED for evaluation. She was seen by urology and started on ABX therapy for chronic proteus infection from her calculi. Noted to have TL related to poor PO intake which has improved with IVF. She was also noted to have high ammonia levels. Seen today bedside feeling better overall. Vitals Reviewed General: NAD, awake HEENT: PERRL, neck supple Chest: CTAB, no W/R/R Heart: RRR, no murmur Abdomen: Soft, non-tender Extremities: no edema Review of Systems Constitutional: Reports as per HPI Past Medical History Past Medical History: Asthma, COPD Additional Past Medical History / Comment(s): Pickwikian syndrome, kidney stones , 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 complicated by a wrist drop and chronic contractures and muscle atrophy in the left upper extremity, complex regional pain syndrome, reflex sympathetic dystrophy, pancreatitis, morbid obesity, history of hemorrhagic cystitis, history of chronic pain, history of GI bleeds, cellulitis, septic in 2016 fromUTI, brain aneurysm History of Any Multi-Drug Resistant Organisms: MRSA Date of last positivie culture/infection: 07/20/16 MDRO Source:: Urine Past Surgical History: Appendectomy, Section, Cholecystectomy Additional Past Surgical History / Comment(s): bowel resection, breast reductio n, bilateral ACL repair, left brachial tumor biopsy and lymph node removed, bilateral knee surgery Past Anesthesia/Blood Transfusion Reactions: No Reported Reaction Past Psychological History: Depression Additional Psychological History / Comment(s): PT SAW DR MALIK DEVRIES IN [facility](PAIN DR) [phone] AFIA TELLEZ [phone]. Smoking Status: Former smoker Past Alcohol Use History: None Reported Additional Past Alcohol Use History / Comment(s): Patient states that she is a lifelong nonsmoker. She denies any medical marijuana, marijuana or street drug or alcohol use. Patient lives at home with her and 2 sons that are 20 and 22 years of age. There is a cat in the home. Patient is currently residing at [facility] for rehab. Past Drug Use History: None Reported - Past Family History Daughter(s) Family Medical History: No Reported History Father Family Medical History: Diabetes Mellitus Additional Family Medical History / Comment(s): GOUT- ANY OTHER HS UNK Mother Additional Family Medical History / Comment(s): of LUNG DISEASE Medications and Allergies Home Medications Medication Instructions Recorded Confirmed Type Mirtazapine [Remeron] 15 mg PO HS #30 tablet 07/28/16 07/17/24 Rx Levothyroxine Sodium [Synthroid] 50 mcg PO DAILY 06/04/20 07/17/24 History Morphine Sulfate ER [Ms Contin] 60 mg PO Q12HR #6 tab 06/10/20 07/17/24 Rx Morphine Sulfate Ir [MSIR] 15 mg PO BID PRN 08/31/23 07/17/24 History buPROPion SR [Wellbutrin SR] 100 mg PO DAILY 08/31/23 07/17/24 History buPROPion SR [Wellbutrin SR] 200 mg PO HS 08/31/23 07/17/24 History Losartan Potassium [Cozaar] 100 mg PO HS 03/25/24 07/17/24 History Metoprolol Tartrate [Lopressor] 25 mg PO BID 03/25/24 07/17/24 History ALPRAZolam [Xanax] 0.25 mg PO BID PRN 07/17/24 07/17/24 History Ascorbic Acid [Vitamin C] 1,000 mg PO DAILY 07/17/24 07/17/24 History Calcium Carbonate [Calcium] 600 mg PO DAILY 07/17/24 07/17/24 History Cephalexin [Keflex] 500 mg PO Q8HR 07/17/24 07/17/24 History Cyclobenzaprine [Flexeril] 10 mg PO TID PRN 07/17/24 07/17/24 History Lactulose [Cephulac] 20 gm PO BID 07/17/24 07/17/24 History Multivitamins, Thera [Multivitamin 1 tab PO DAILY 07/17/24 07/17/24 History (formulary)] Allergies Allergy/AdvReac Type Severity Reaction Status Date / Time aspirin Allergy Unknown Verified 07/17/24 18:52 ciprofloxacin [From Cipro] Allergy low bp, Verified 07/17/24 18:52 swelling, Anaphylaxis ciprofloxacin HCl Allergy low BP, Verified 07/17/24 18:52 [From Cipro] swelling, Anaphylaxis levofloxacin [From Levaquin] Allergy Rash/Hives Verified 07/17/24 18:52 Penicillins Allergy Anaphylaxis Verified 07/17/24 18:52 Physical Exam Vitals: Vital Signs Temp Pulse Resp BP BP Pulse Ox 07/20/24 07:25 98.2 F 81 18 95/51 97 07/20/24 00:27 99.0 F 79 17 128/70 100 07/19/24 19:59 99.1 F 77 16 109/62 99 07/19/24 13:25 98.9 F 85 18 127/92 95 Intake and Output 07/19/24 07/20/24 07/20/24 22:59 06:59 14:59 Intake Total 540 1620 Output Total 1000 1300 Balance -460 320 Intake: Oral 540 1620 Output: Urine 1000 1300 Other: Voiding Method Indwelling Catheter # Bowel Movements 2 4 Results - Lab Results Most recent lab results Calcium 9.4 mg/dL (8.7-10.3) 07/20/24 03:57 Phosphorus 2.3 mg/dL (2.4-5.1) L 07/18/24 03:48 Magnesium 1.8 mg/dL (1.5-2.4) 07/18/24 03:48 07/20/24 03:57 07/20/24 03:57 Assessment and Plan Assessment: 1. Non-oliguric TL likely Prerenal-Resolved. Creatinine 1.4, improved to 0.9 today with IVF with baseline 0.7-0.9 mg/dL. CT abdomen no hydronephrosis. UA consistent with UTI 2. UTI with sepsis. Chronic proteus infection related to staghorn calculi. 3. Nepholithiasis with staghorn calculi. Follows urology at [facility] 4. Metabolic encephalopathy. Related to infection and hepatic. Improved 5. Anemia of chronic disease. 6. Hypertension Plan: Continue to hold Losartan until discharge D/C IVF if tolerating PO No further work-up Clear for discharge from nephrology standpoint Nephrolithiasis per urology, defering to [facility] management outpatient
--- NOTE | 2024-07-20 13:02 | P.PN ---
Subjective Progress Note Date: 07/20/24 Principal diagnosis: Right staghorn renal calculus, UTI The patient has a known right renal staghorn calculus and recurrent Proteus UTIs, consistent with a calculus of struvite composition. She is being treated with ceftriaxone, but states that she is not feeling better. She reports right flank swelling which is unchanged. Objective - Vital Signs Vital signs: Vital Signs Temp 98.2 F 07/20/24 07:25 Pulse 81 07/20/24 07:25 Resp 18 07/20/24 07:25 BP 95/51 07/20/24 07:25 Pulse Ox 97 07/20/24 07:25 FiO2 Intake & Output 07/19/24 07/20/24 07/20/24 18:59 06:59 18:59 Intake Total 2160 Output Total 1000 1300 Balance -1000 860 Intake: Oral 2160 Output: Urine 1000 1300 Other: Voiding Method Indwelling Catheter # Bowel Movements 1 4 - Constitutional General appearance: Present: average body habitus, cooperative, no acute distress - Gastrointestinal Gastrointestinal Comment(s): Soft, non-tender, non-distended. The panniculus in the dependent portion of the right flank is somewhat thicker than that on the left, but there is no evidence of cellulitis, fluctuance, or drainage. - Psychiatric Psychiatric: Present: A&O x's 3 - Labs CBC & Chem 7: 07/20/24 03:57 07/20/24 03:57 Labs: Abnormal Lab Results - Last 24 Hours (Table) 07/20/24 07/20/24 Range/Units 03:57 03:57 RBC 3.05 L (4.10-5.20) X 10*6/uL Hgb 9.7 L (12.0-15.0) g/dL Hct 30.0 L (37.2-46.3) % MCV 98.4 H (80.0-97.0) FL Eosinophils # 0.75 H (0.04-0.35) X 10*3/uL Chloride 114 H (96-109) mmol/L Carbon Dioxide 19.9 L (21.6-31.8) mmol/L BUN/Creatinine Ratio 11.22 L (12.00-20.00) Ratio Glucose 121 H (70-110) mg/dL Microbiology - Last 24 Hours (Table) 07/17/24 20:06 Blood Culture - Preliminary Blood 07/18/24 03:48 Blood Culture - Preliminary Blood 07/17/24 18:45 Urine Culture - Final Urine,Voided Assessment and Plan (1) UTI (urinary tract infection) Current Visit: Yes Status: Acute Code(s): N39.0 - URINARY TRACT INFECTION, SITE NOT SPECIFIED SNOMED Code(s): 05549255 (2) Nephrolithiasis Current Visit: No Status: Acute Code(s): N20.0 - CALCULUS OF KIDNEY SNOMED Code(s): 75446446 Plan: Urine culture shows mixed concetta, and blood cultures are negative at 24 hours. Nonetheless, I would suggest that the patient be treated with antibiotics appropriate for her previous Proteus UTIs. I have made clear to her that she will continue to have recurrent UTIs until she undergoes the right percutaneous nephrolithotomy at [facility].
--- NOTE | 2024-07-20 14:30 | P.PN ---
Subjective Progress Note Date: 07/20/24 Interval History: This is a 54-year-old female with a previous medical history significant for hypertension and hypertensive cardiovascular disease, history of obesity with obstructive sleep apnea and obesity hypoventilation syndrome (pickwickian syndrom), history of peptic ulcer disease status post EGD 06/05/2020 with Endo Clip and gold probe ablation, history of schwannoma of the left brachial praxis status post surgical intervention that resulted in chronic regional pain syndrome [reflex sympathetic dystrophy, history of liver cirrhosis patient has been cared for by Dr. Rodgers. Patient's is the primary caregiver for her and she is wheelchair-bound and bedbound, not ambulatory at all. Patient presented to the emergency department at [facility] because of mental status changes according to her that started over the last few days, patient is known to have a staghorn calculus of the right kidney by 2.9 cm with bilateral renal calculi for which she was supposed to follow-up with a urologist at [facility] for surgical intervention that has been postponed from May till July I believe patient has been getting pulsed therapy with Keflex to prevent recurrent urinary tract infection, apparently patient was brought into the ER for evaluation she was found to have UTI, and her ammonia level was elevated 140, she was started back on ceftriaxone 2 g piggyback every 24 hours, infectious disease consultation, she was also started on lactulose 20 g orally 3 times every day as well as Xifaxan 550 mg orally twice every day ammonia level will be repeated next 24 hours, infectious disease consultation along with urology consultation was obtained. 07/19--patient was seen and examined today. Complains of dysuria, right flank pain. Vitals unremarkable, remained afebrile. Urine culture and blood culture negative. WBCs 5.8, hemoglobin 9.0, platelet 141. Creatinine 1.4. Infectious disease and urology following. Neurology recommended follow-up at [facility] for nephrolithotomy. Will consult nephrology. 07/20--patient was seen and examined today. Continues complain of back pain, body aches. Afebrile, heart rate 81, respiratory rate 18, blood pressure 126/82, saturating 98% on room air. Blood culture and urine culture remain neg ative. Nephrology evaluated the patient. Creatinine improved to 0.9 today. Urology recommended to hold losartan until discharge, DC IV fluids, no further workup. Urology recommended to continue antibiotics empirically due to high risk of recurrent UTIs and recommended outpatient follow-up at [facility] for right percutaneous nephrolithotomy. Patient remains on Rocephin. Infectious disease following. Assessment and plan: 1. Right staghorn calculus with bilateral renal calculi and recurrent UTI with SIRS. Patient was seen and evaluated by urology at [facility] she is s cheduled to go for surgical intervention I believe month, patient will be admitted to the hospital urine culture, blood culture Remains on Rocephin. Urine culture and blood culture negative so far. Urology recommended to continue antibiotics empirically due to high risk of recurrent UTIs, recommended outpatient follow-up at [facility]. Infectious disease following. 2. 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 Continue lactulose 20 g orally 3 times every day, add Xifaxan 550 mg orally twice every day. 3. Acute kidney injury due to acute tubular necrosis. IV fluids, nephrology consulted. Monitor BMP. Hold losartan until discharge per nephrology. 4. Anemia of chronic disease. Check iron TIBC ferritin level, B12 folic acid, LDH haptoglobin, reticulocyte count, kappa lambda light chain, serum protein electrophoresis to complete the evaluation. 5. Hypertension and hypertensive cardiovascular disease. Continue patient on metoprolol 25 mg orally twice every day, continue losartan 50 mg at bedtime, monitor the patient blood pressure very closely. 6. Hypothyroidism. Continue patient on Synthroid 50 mcg orally once every day, monitor the patient TSH and free T4 as an outpatient. 7. Mixed hyperlipidemia not taking any statin due to her liver cirrhosis. 8. Anxiety disorder. Continue patient on Wellbutrin SR 200 mg in the morning and 100 mg at bedtime, continue mirtazapine 15 mg orally at bedtime will continue with Xanax as needed. 9. Obesity with obstructive sleep apnea and obesity hypoventilation syndrome [pickwickian syndrome]. continue with her CPAP machine. 10. History of peptic ulcer disease. Continue patient on Protonix 40 mg orally once every day. 11. Bilateral kidney stones. No hydronephrosis there is a 2.9 cm dominant right staghorn stone 12. history of pulmonary nodules about 7 mm need to be evaluated as an outpatient. He is being planned at [facility] I believe next month 13. constipation. Increase lactulose to 20 g orally 3 times every day. 14. DVT prophylaxis. Lovenox 40 mg subcutaneously every 24 hours. 15. GI prophylaxis. Continue patient on Protonix 40 mg orally once every day. 16. Admit to inpatient estimated length of stay 2 midnights. 17. Full code. DVT prophylaxis: Subcutaneous Lovenox Monitor vital signs and labs Labs and medication were reviewed. Continue same treatment. Further recommendations as per clinical course of the patient PHYSICAL EXAMINATION: GENERAL: The patient is A&O x3, NAD HEENT: EOMI, Sclerae anicteric, Moist Mucous membranes Neck: Supple, Non tender, No JVD PULMONARY: Equal breath souds B/L, No wheezing, No crackles. CARDIOVASCULAR: S1, S2 present. No murmurs, rubs, or gallops. ABDOMEN: Soft, nontender, nondistended, normoactive bowel sounds. No guarding or rebound tenderness. MUSCULOSKELETAL: No edema, No cyanosis. No clubbing. Normal ROM. Intact peripheral pulses. NEUROLOGICAL: CN 2-12 grossly intact. No FND Skin: No Rash REVIEW OF SYSTEMS: CONSTITUTIONAL: No fever or chills. CARDIOVASCULAR: No chest pain, palpitations or syncope. PULMONARY: No shortness of breath, no cough, sore throat. GASTROINTESTINAL: No nausea, vomiting, diarrhea, abdominal pain. : No Dysuria, urgency, frequency. Extremities: No edema. NEUROLOGICAL: No headaches, no weakness, or numbness Dictation was produced using [employer] dictation software. please excuse any grammatical, word or spelling errors. Objective - Vital Signs Vital signs: Vital Signs Temp 98.6 F 07/20/24 13:35 Pulse 81 07/20/24 13:35 Resp 18 07/20/24 13:35 BP 126/82 07/20/24 13:35 Pulse Ox 98 07/20/24 13:35 FiO2 Intake & Output 07/19/24 07/20/24 07/20/24 18:59 06:59 18:59 Intake Total 2160 Output Total 1000 1300 Balance -1000 860 Intake: Oral 2160 Output: Urine 1000 1300 Other: Voiding Method Indwelling Catheter Indwelling Catheter Indwelling Catheter # Bowel Movements 1 4 - Labs CBC & Chem 7: 07/20/24 03:57 07/20/24 03:57 Labs: Abnormal Lab Results - Last 24 Hours (Table) 07/20/24 07/20/24 Range/Units 03:57 03:57 RBC 3.05 L (4.10-5.20) X 10*6/uL Hgb 9.7 L (12.0-15.0) g/dL Hct 30.0 L (37.2-46.3) % MCV 98.4 H (80.0-97.0) FL Eosinophils # 0.75 H (0.04-0.35) X 10*3/uL Chloride 114 H (96-109) mmol/L Carbon Dioxide 19.9 L (21.6-31.8) mmol/L BUN/Creatinine Ratio 11.22 L (12.00-20.00) Ratio Glucose 121 H (70-110) mg/dL Microbiology - Last 24 Hours (Table) 07/18/24 03:48 Blood Culture - Preliminary Blood 07/17/24 20:06 Blood Culture - Preliminary Blood
--- NOTE | 2024-07-20 14:58 | P.PN ---
Subjective Progress Note Date: 07/20/24 Principal diagnosis: Reason for follow-up is a UTI Patient is a 54-year-old female with a past medical history significant for hypertension obesity obstructive sleep apnea peptic ulcer disease, staghorn calculus and history of recurrent UTI patient has been brought to the hospital by the concerning for mental status changes and right flank pain with concern for possible UTI prompting this consultation. On today's evaluation that is 07/20/2024, Patient is afebrile patient is currently on room air and denies having any shortness of breath, the patient denies any chest pain or cough, the patient denies any nausea vomiting still complaining of pain to the right flank area and 1 more pain medication. Patient white count 6.38, creatinine 0.9 repeat UA has been requested not collected so far blood urine culture have been negative Objective - Vital Signs Vital signs: Vital Signs Temp 98.6 F 07/20/24 13:35 Pulse 81 07/20/24 13:35 Resp 18 07/20/24 13:35 BP 126/82 07/20/24 13:35 Pulse Ox 98 07/20/24 13:35 FiO2 Intake & Output 07/19/24 07/20/24 07/20/24 18:59 06:59 18:59 Intake Total 2160 Output Total 1000 1300 Balance -1000 860 Intake: Oral 2160 Output: Urine 1000 1300 Other: Voiding Method Indwelling Catheter Indwelling Catheter Indwelling Catheter # Bowel Movements 1 4 - Exam GENERAL DESCRIPTION: Middle-age female lying in bed in no distress RESPIRATORY SYSTEM: Unlabored breathing , decreased breath sounds at bases HEART: S1 S2 regular rate and rhythm , ABDOMEN: Soft , no tenderness EXTREMITIES: No edema feet - Labs CBC & Chem 7: 07/20/24 03:57 07/20/24 03:57 Labs: Abnormal Lab Results - Last 24 Hours (Table) 07/20/24 07/20/24 Range/Units 03:57 03:57 RBC 3.05 L (4.10-5.20) X 10*6/uL Hgb 9.7 L (12.0-15.0) g/dL Hct 30.0 L (37.2-46.3) % MCV 98.4 H (80.0-97.0) FL Eosinophils # 0.75 H (0.04-0.35) X 10*3/uL Chloride 114 H (96-109) mmol/L Carbon Dioxide 19.9 L (21.6-31.8) mmol/L BUN/Creatinine Ratio 11.22 L (12.00-20.00) Ratio Glucose 121 H (70-110) mg/dL Microbiology - Last 24 Hours (Table) 07/18/24 03:48 Blood Culture - Preliminary Blood 07/17/24 20:06 Blood Culture - Preliminary Blood Assessment and Plan (1) Allergy to multiple antibiotics Current Visit: Yes Status: Acute Code(s): Z88.1 - ALLERGY STATUS TO OTHER ANTIBIOTIC AGENTS SNOMED Code(s): 867805907 (2) UTI (urinary tract infection) Current Visit: Yes Status: Acute Code(s): N39.0 - URINARY TRACT INFECTION, SITE NOT SPECIFIED SNOMED Code(s): 63251742 Plan: 1patient presented to hospital with mental status changes also have right flank pain in this patient who did have a large right-sided kidney stone but no evidence of any hydronephrosis significantly positive UA concerning for complicated UTI likely from to the gram-negative pathogen 2-patient with multiple antibiotic ALLERGIES that would limit the number of an tibiotic safe to use 3-patient still complaining of pain in the flank area repeat UA has been reques celena not collected May continue Rocephin at this point Dictation was produced using [employer] dictation software. please excuse any grammatical, word or spelling errors. Time with Patient: Less than 30
[2024-07-20 16:28] LABS: Appearance,Urine Cloudy (Clear); Bacteria,Urine Rare /hpf; Bilirubin,Urine Negative (Negative); Blood,Urine Large (Negative); Color,Urine Yellow; Glucose,Urine (UA) Negative (Negative); Ketones,Urine Negative (Negative); Leukocyte Esterase,Urine Large (Negative); Mucus,Urine Rare /hpf; Nitrite,Urine Negative (Negative); Protein,Urine Trace (Negative); RBC,Urine >182 /hpf (0-5); Specific Gravity,Urine 1.013 (1.001-1.035); Urobilinogen,Urine <2.0 mg/dL (<2.0); WBC,Urine 152 /hpf (0-5)
[2024-07-21 05:37] LABS: Methylmalonic Acid 0.25 umol/L (<0.40)
--- NOTE | 2024-07-21 10:27 | P.PN ---
Subjective Progress Note Date: 07/21/24 HISTORY OF PRESENT ILLNESS: Interval History: This is a 54-year-old female with a previous medical history significant for hypertension and hypertensive cardiovascular disease, history of obesity with obstructive sleep apnea and obesity hypoventilation syndrome (pickwickian syndrom), history of peptic ulcer disease status post EGD 06/05/2020 with Endo Clip and gold probe ablation, history of schwannoma of the left brachial praxis status post surgical intervention that resulted in chronic regional pain syndrome [reflex sympathetic dystrophy, history of liver cirrhosis patient has been cared for by Dr. Rodgers. Patient's is the primary caregiver for her and she is wheelchair-bound and bedbound, not ambulatory at all. Patient presented to the emergency department at [facility] because of mental status changes according to her that started over the last few days, patient is known to have a staghorn calculus of the right kidney by 2.9 cm with bilateral renal calculi for which she was supposed to follow-up with a urologist at [facility] for surgical intervention that has been postponed from May till July I believe patient has been getting pulsed therapy with Keflex to prevent recurrent urinary tract infection, apparently patient was brought into the ER for evaluation she was found to have UTI, and her ammonia level was elevated 140, she was started back on ceftriaxone 2 g piggyback every 24 hours, infectious disease consultation, she was also started on lactulose 20 g orally 3 times every day as well as Xifaxan 550 mg orally twice every day ammonia level will be repeated next 24 hours, infectious disease consultation along with urology consultation was obtained. 07/19--patient was seen and examined today. Complains of dysuria, right flank pain. Vitals unremarkable, remained afebrile. Urine culture and blood culture negative. WBCs 5.8, hemoglobin 9.0, platelet 141. Creatinine 1.4. Infectious disease and urology following. Neurology recommended follow-up at [facility] for nephrolithotomy. Will consult nephrology. 07/20--patient was seen and examined today. Continues complain of back pain, body aches. Afebrile, heart rate 81, respiratory rate 18, blood pressure 126/82, saturating 98% on room air. Blood culture and urine culture remain negative. Nephrology evaluated the patient. Creatinine improved to 0.9 today. Urology recommended to hold losartan until discharge, DC IV fluids, no further workup. Urology recommended to continue antibiotics empirically due to high risk of recurrent UTIs and recommended outpatient follow-up at [facility] for right percutaneous nephrolithotomy. Patient remains on Rocephin. Infectious disease following. 07/21: Patient is laying down in bed in no apparent distress, she was seen earlier by nephrology as well as by ID, along with urology who recommended for the patient to follow-up with urology at [facility] for surgical intervention of the staghorn calculus in the right kidney, patient does have multiple allergies to antibiotic, it was recommended to continue ceftriaxone for now until further evaluation, patient is doing better, and she has no chest pain at this time is no shortness of breath, she has no abdominal pain, nausea vomiting or diarrhea, she continues to be on lactulose for her encephalopathy as well as Xifaxan 550 mg orally twice every day we will follow-up with the patient very closely hopefully will discharge the patient home in the next 24 hours. REVIEW OF SYSTEMS: Constitutional: Positive for documented fever, positive for chills, no night sweats. No weight change. Positive for weakness, fatigue or lethargy. No daytime sleepiness. EENT: headache. No blurred vision or double vision, no loss of vision. No loss of Hearing, no ringing in the ears, no dizziness. No nasal drainage or congestion. No epistaxis. No sore throat. Lungs: No shortness of breath, no cough, no sputum production. No wheezing. R eports dyspnea with activity. Cardiovascular: No chest pain, no lower extremity edema. No palpitations. No paroxysmal nocturnal dyspnea. No orthopnea. No lightheadedness or dizziness. No syncopal episodes. Abdominal: Reports abdominal pain. positive for nausea, vomiting. No diarrhea. Positive for constipation. No bloody or tarry stools reports loss of appetite. Genitourinary: No dysuria, increased frequency, urgency. No urinary retention. Musculoskeletal: No myalgias. No muscle weakness, positive for gait dysfunction, no frequent falls. No back pain. No neck pain.left arm pain Integumentary: No wounds, no lesions. No rash or pruritus. No unusual bruising. No change in hair or nails. Neurologic: No aphasia. No facial droop. Positive for change in mentation. No head injury. No headache. No paralysis. No paresthesia. Psychiatric: Positive for depression. positive for anxiety. No mood swings. Endocrine: No abnormal blood sugars. No weight change. PHYSICAL EXAMINATION: General: 54-year-old female laying down in bed in no apparent distress HEENT: Head is atraumatic, normocephalic, pupils were equal round reactive to light and recommendation, extraocular muscle movement were intact, sclera nonicteric, conjunctivae were pale, mucous membranes of the mouth are somewhat dry. Neck: Supple, no JVP, normal carotid upstroke bilaterally, no lymphadenopathy. Chest: Decreased breath sounds at the bases, few rhonchi, no expiratory wheezes, no chest wall tenderness, no intercostal retractions. Heart: First heart sound is normal, second heart sound is normal there is systolic ejection murmur 2/6 located in the left sternal border. Abdomen: Soft, mild right upper quadrant tenderness, nondistended, positive bowel sounds. Extremities: There is no edema no calf tenderness DP +2 bilaterally. Neurologic examination: Patient is awake alert and oriented x3 , cranial nerves II-12 appear grossly intact, muscle power were 5 out of 5 in right upper extremity 3 out of 5 in the left upper extremity and 3 out of 5 in bilateral lower extremities, deep tendon reflexes normal bilaterally. ASSESSMENT AND PLAN: 1. Right staghorn calculus with bilateral renal calculi and recurrent UTI with SIRS. Patient was seen and evaluated by urology at [facility] she is scheduled to go for surgical intervention I believe month, patient will be admitted to the hospital urine culture, blood culture, start the patient on ceftriaxone 2 g IV piggyback every 24 hours, patient has been seen by infectious disease, urology as well as nephrology was recommended to continue ceftriaxone until obtaining another urine specimen. Patient will need to follow-up with urine urology at [facility] for definitive treatment of the staghorn calculus. 2. Acute kidney injury due to prerenal azotemia. Resolved. Repeat the patient CMP tomorrow morning. 3. 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 Continue lactulose 20 g orally 3 times every day, Xifaxan 550 mg orally twice every day repeat ammonia level tomorrow morning. 4. Acute kidney injury due to acute tubular necrosis. Continue IV fluid in the form of normal saline, repeat the patient CMP tomorrow morning. 5. Anemia of chronic disease. Check iron TIBC ferritin level, B12 folic acid, LDH haptoglobin, reticulocyte count, kappa lambda light chain, serum protein electrophoresis to complete the evaluation. 6. Hypertension and hypertensive cardiovascular disease. Continue patient on metoprolol 25 mg orally twice every day, continue losartan 50 mg at bedtime, monitor the patient blood pressure very closely. 7. Hypothyroidism. Continue patient on Synthroid 50 mcg orally once every day, monitor the patient TSH and free T4 as an outpatient. 8. Mixed hyperlipidemia not taking any statin due to her liver cirrhosis. 9. Anxiety disorder. Continue patient on Wellbutrin SR 200 mg in the morning and 100 mg at bedtime, continue mirtazapine 15 mg orally at bedtime will continue with Xanax as needed. 10. Obesity with obstructive sleep apnea and obesity hypoventilation syndrome [pickwickian syndrome]. continue with her CPAP machine. 11. History of peptic ulcer disease. Continue patient on Protonix 40 mg orally once every day. 12. Bilateral kidney stones. No hydronephrosis there is a 2.9 cm dominant right staghorn stone 13. history of pulmonary nodules about 7 mm need to be evaluated as an outpatient. He is being planned at [facility] I believe next month 14. constipation. Increase lactulose to 20 g orally 3 times every day. 15. DVT prophylaxis. Lovenox 40 mg subcutaneously every 24 hours. 16. GI prophylaxis. Continue patient on Protonix 40 mg orally once every day. 17. Home in AM Objective - Vital Signs Vital signs: Vital Signs Temp 97.5 F L 07/21/24 07:25 Pulse 82 07/21/24 07:25 Resp 18 07/21/24 07:25 BP 122/78 07/21/24 07:25 Pulse Ox 98 07/21/24 07:25 FiO2 Intake & Output 07/20/24 07/21/24 07/21/24 18:59 06:59 18:59 Intake Total 900 Output Total 1500 1650 Balance -1500 -750 Intake: Intake, IV Titration 900 Amount Sodium Chloride 0.9% 1, 900 000 ml @ 75 mls/hr IV . [id number] ISIAH Rx#:[id number] Output: Urine 1500 1650 Other: Voiding Method Indwelling Catheter Indwelling Catheter # Bowel Movements 1 3 - Labs CBC & Chem 7: 07/20/24 03:57 07/20/24 03:57 Labs: Abnormal Lab Results - Last 24 Hours (Table) 07/20/24 Range/Units 16:15 Urine Appearance Cloudy H (Clear) Urine Protein Trace H (Negative) Urine Blood Large H (Negative) Ur Leukocyte Esterase Large H (Negative) Urine RBC >182 H (0-5) /hpf Urine WBC 152 H (0-5) /hpf Urine Bacteria Rare H (None) /hpf Urine Mucus Rare H (None) /hpf Microbiology - Last 24 Hours (Table) 07/17/24 20:06 Blood Culture - Preliminary Blood 07/18/24 03:48 Blood Culture - Preliminary Blood
--- NOTE | 2024-07-21 11:21 | P.PN ---
Subjective Patient is seen in follow-up for acute kidney injury. Renal function improved. Tolerating oral intake. Vital signs are stable. General: No acute distress. HEENT: Head exam is unremarkable. On nasal cannula. LUNGS: No audible rhonchi or wheezes. HEART: Rate and Rhythm are regular. ABDOMEN: Obese. Right flank tenderness. EXTREMITITES: No edema. Objective - Vital Signs Vital signs: Vital Signs Temp 97.5 F L 07/21/24 07:25 Pulse 82 07/21/24 07:25 Resp 18 07/21/24 09:13 BP 122/78 07/21/24 07:25 Pulse Ox 98 07/21/24 07:25 FiO2 Intake & Output 07/20/24 07/21/24 07/21/24 18:59 06:59 18:59 Intake Total 900 Output Total 1500 1650 Balance -1500 -750 Intake: Intake, IV Titration 900 Amount Sodium Chloride 0.9% 1, 900 000 ml @ 75 mls/hr IV . [id number] ISIAH Rx#:[id number] Output: Urine 1500 1650 Other: Voiding Method Indwelling Catheter Indwelling Catheter Indwelling Catheter # Bowel Movements 1 3 - Labs CBC & Chem 7: 07/20/24 03:57 07/20/24 03:57 Labs: Abnormal Lab Results - Last 24 Hours (Table) 07/20/24 Range/Units 16:15 Urine Appearance Cloudy H (Clear) Urine Protein Trace H (Negative) Urine Blood Large H (Negative) Ur Leukocyte Esterase Large H (Negative) Urine RBC >182 H (0-5) /hpf Urine WBC 152 H (0-5) /hpf Urine Bacteria Rare H (None) /hpf Urine Mucus Rare H (None) /hpf Microbiology - Last 24 Hours (Table) 07/17/24 20:06 Blood Culture - Preliminary Blood 07/18/24 03:48 Blood Culture - Preliminary Blood Assessment and Plan Plan: Assessment: 1. Acute kidney injury secondary to vasomotor nephropathy. Improved. Creatinine 0.9 yesterday. No hydronephrosis noted on CAT scan. 2. UTI with sepsis. On antibiotics. 3. Nephrolithiasis with staghorn calculi. Urology following. 4. Benign hypertension. Controlled. Plan: Encouraged oral intake. Avoid nephrotoxins. Repeat labs in the morning. Potential right percutaneous nephrolithotomy at [facility] in the near future.
[2024-07-21] MEDS: ALPRAZolam 0.25 MG TAB PO PRN (21:49)
[2024-07-22 04:29] LABS: ALT 17 U/L (4-34); AST 42 U/L (14-36); African American GFR (CKD) >90 (>60 ml/min/1.73 sqM); Albumin 2.3 g/dL (3.5-5.0); Albumin/Globulin Ratio 0.7; Alkaline Phosphatase 114 U/L (38-126); Anion Gap 5 mmol/L; Blood Urea Nitrogen 9 mg/dL (7-17); Carbon Dioxide 16 mmol/L (22-30); Chloride 116 mmol/L (98-107); Globulin 3.1 g/dL; Glucose 98 mg/dL (74-99); Magnesium 1.7 mg/dL (1.6-2.3); Non-African American GFR(CKD) >90 (>60 ml/min/1.73 sqM); Potassium 3.9 mmol/L (3.5-5.1); Sodium 137 mmol/L (137-145); Total Protein 5.4 g/dL (6.3-8.2)
[2024-07-22 09:36] LABS: Albumin 2.46 g/dL (3.80-4.90); Gamma Globulin 1.26 g/dL (0.70-1.50)
--- NOTE | 2024-07-22 10:18 | P.PN ---
Subjective Progress Note Date: 07/22/24 HISTORY OF PRESENT ILLNESS: Interval History: This is a 54-year-old female with a previous medical history significant for hypertension and hypertensive cardiovascular disease, history of obesity with obstructive sleep apnea and obesity hypoventilation syndrome (pickwickian syndrom), history of peptic ulcer disease status post EGD 06/05/2020 with Endo Clip and gold probe ablation, history of schwannoma of the left brachial praxis status post surgical intervention that resulted in chronic regional pain syndrome [reflex sympathetic dystrophy, history of liver cirrhosis patient has been cared for by Dr. Rodgers. Patient's is the primary caregiver for her and she is wheelchair-bound and bedbound, not ambulatory at all. Patient presented to the emergency department at [facility] because of mental status changes according to her that started over the last few days, patient is known to have a staghorn calculus of the right kidney by 2.9 cm with bilateral renal calculi for which she was supposed to follow-up with a urologist at [facility] for surgical intervention that has been postponed from May till July I believe patient has been getting pulsed therapy with Keflex to prevent recurrent urinary tract infection, apparently patient was brought into the ER for evaluation she was found to have UTI, and her ammonia level was elevated 140, she was started back on ceftriaxone 2 g piggyback every 24 hours, infectious disease consultation, she was also started on lactulose 20 g orally 3 times every day as well as Xifaxan 550 mg orally twice every day ammonia level will be repeated next 24 hours, infectious disease consultation along with urology consultation was obtained. 07/19--patient was seen and examined today. Complains of dysuria, right flank pain. Vitals unremarkable, remained afebrile. Urine culture and blood culture negative. WBCs 5.8, hemoglobin 9.0, platelet 141. Creatinine 1.4. Infectious disease and urology following. Neurology recommended follow-up at [facility] for nephrolithotomy. Will consult nephrology. 07/20--patient was seen and examined today. Continues complain of back pain, body aches. Afebrile, heart rate 81, respiratory rate 18, blood pressure 126/82, saturating 98% on room air. Blood culture and urine culture remain negative. Nephrology evaluated the patient. Creatinine improved to 0.9 today. Urology recommended to hold losartan until discharge, DC IV fluids, no further workup. Urology recommended to continue antibiotics empirically due to high risk of recurrent UTIs and recommended outpatient follow-up at [facility] for right percutaneous nephrolithotomy. Patient remains on Rocephin. Infectious disease following. 07/21: Patient is laying down in bed in no apparent distress, she was seen earlier by nephrology as well as by ID, along with urology who recommended for the patient to follow-up with urology at [facility] for surgical intervention of the staghorn calculus in the right kidney, patient does have multiple allergies to antibiotic, it was recommended to continue ceftriaxone for now until further evaluation, patient is doing better, and she has no chest pain at this time is no shortness of breath, she has no abdominal pain, nausea vomiting or diarrhea, she continues to be on lactulose for her encephalopathy as well as Xifaxan 550 mg orally twice every day we will follow-up with the patient very closely hopefully will discharge the patient home in the next 24 hours. 07/22: Patient continues to have loose stool, ammonia level is down to 67, more awake and more alert today, she continues to have pain in the right flank area, her laboratory evaluation showed evidence of none anion gap antibiotic acidosis due to diarrhea, discontinue IV fluid completely, encourage oral intake of fluid, continue IV antibiotic, await final decision by infectious disease for the patient to go home on oral antibiotic, follow-up with the patient very clos gayla. Patient will need to have nephrolithotomy at [facility] this will be done as an outpatient no hospital to hospital transfer at this point in time. REVIEW OF SYSTEMS: Constitutional: Positive for documented fever, positive for chills, no night sweats. No weight change. Positive for weakness, fatigue or lethargy. No daytime sleepiness. EENT: headache. No blurred vision or double vision, no loss of vision. No loss of Hearing, no ringing in the ears, no dizziness. No nasal drainage or congestion. No epistaxis. No sore throat. Lungs: No shortness of breath, no cough, no sputum production. No wheezing. Reports dyspnea with activity. Cardiovascular: No chest pain, no lower extremity edema. No palpitations. No paroxysmal nocturnal dyspnea. No orthopnea. No lightheadedness or dizziness. No syncopal episodes. Abdominal: Reports abdominal pain. positive for nausea, vomiting. No diarrhea. Positive for constipation. No bloody or tarry stools reports loss of hussain etite. Genitourinary: No dysuria, increased frequency, urgency. No urinary retention. Musculoskeletal: No myalgias. No muscle weakness, positive for gait dysfunction, no frequent falls. No back pain. No neck pain.left arm pain Integumentary: No wounds, no lesions. No rash or pruritus. No unusual bruising. No change in hair or nails. Neurologic: No aphasia. No facial droop. Positive for change in mentation. No head injury. No headache. No paralysis. No paresthesia. Psychiatric: Positive for depression. positive for anxiety. No mood swings. Endocrine: No abnormal blood sugars. No weight change. PHYSICAL EXAMINATION: General: 54-year-old female laying down in bed in no apparent distress HEENT: Head is atraumatic, normocephalic, pupils were equal round reactive to li ght and recommendation, extraocular muscle movement were intact, sclera nonicteric, conjunctivae were pale, mucous membranes of the mouth are somewhat dry. Neck: Supple, no JVP, normal carotid upstroke bilaterally, no lymphadenopathy. Chest: Decreased breath sounds at the bases, few rhonchi, no expiratory wheezes, no chest wall tenderness, no intercostal retractions. Heart: First heart sound is normal, second heart sound is normal there is systolic ejection murmur 2/6 located in the left sternal border. Abdomen: Soft, mild right upper quadrant tenderness, nondistended, positive bowel sounds. Extremities: There is no edema no calf tenderness DP +2 bilaterally. Neurologic examination: Patient is awake alert and oriented x3 , cranial nerves II-12 appear grossly intact, muscle power were 5 out of 5 in right upper extremity 3 out of 5 in the left upper extremity and 3 out of 5 in bilateral l ower extremities, deep tendon reflexes normal bilaterally. ASSESSMENT AND PLAN: 1. Right staghorn calculus with bilateral renal calculi and recurrent UTI with SIRS. Patient was seen and evaluated by urology at [facility] she is scheduled to go for surgical intervention I believe month, patient will be admitted to the hospital urine culture, blood culture, start the patient on ceftriaxone 2 g IV piggyback every 24 hours, patient has been seen by infectious disease, urology as well as nephrology was recommended to continue ceftriaxone until obtaining another urine specimen. Patient will need to follow-up with urine urology at [facility] for definitive treatment of the staghorn calculus. 2. Acute kidney injury due to prerenal azotemia. Resolved. Repeat the patient CMP tomorrow morning. 3. 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 Continue lactulose 20 g orally 3 times every day, Xifaxan 550 mg orally twice every day repeat ammonia level tomorrow morning. 4. Acute kidney injury due to acute tubular necrosis. Continue IV fluid in the form of normal saline, repeat the patient CMP tomorrow morning. 5. None anion gap metabolic acidosis likely related to diarrhea. Encourage oral intake fluid discontinue IV fluid. Repeat CMP tomorrow morning. 6. Anemia of chronic disease. Check iron TIBC ferritin level, B12 folic acid, LDH haptoglobin, reticulocyte count, kappa lambda light chain, serum protein electrophoresis to complete the evaluation. 7. Hypertension and hypertensive cardiovascular disease. Continue patient on metoprolol 25 mg orally twice every day, continue losartan 50 mg at bedtime, monitor the patient blood pressure very closely. 8. Hypothyroidism. Continue patient on Synthroid 50 mcg orally once every day, monitor the patient TSH and free T4 as an outpatient. 9. Mixed hyperlipidemia not taking any statin due to her liver cirrhosis. 10. Anxiety disorder. Continue patient on Wellbutrin SR 200 mg in the morning and 100 mg at bedtime, continue mirtazapine 15 mg orally at bedtime will c ontinue with Xanax as needed. 11. Obesity with obstructive sleep apnea and obesity hypoventilation syndrome [pickwickian syndrome]. continue with her CPAP machine. 12. History of peptic ulcer disease. Continue patient on Protonix 40 mg orally once every day. 13. Bilateral kidney stones. No hydronephrosis there is a 2.9 cm dominant right staghorn stone 14. history of pulmonary nodules about 7 mm need to be evaluated as an outpatient. He is being planned at [facility] I believe next month 15. constipation. Increase lactulose to 20 g orally 3 times every day. 16. DVT prophylaxis. Lovenox 40 mg subcutaneously every 24 hours. 17. GI prophylaxis. Continue patient on Protonix 40 mg orally once every day. 18. Likely home in the morning if okay with ID with the choice of antibiotic. Objective - Vital Signs Vital signs: Vital Signs Temp 98.5 F 07/22/24 07:05 Pulse 84 07/22/24 07:05 Resp 17 07/22/24 08:45 BP 119/77 07/22/24 07:05 Pulse Ox 99 07/22/24 07:05 FiO2 Intake & Output 07/21/24 07/22/24 07/22/24 18:59 06:59 18:59 Intake Total 500 2160 Output Total 1775 Balance 500 385 Intake: Oral 500 2160 Output: Urine 1775 Other: Voiding Method Indwelling Catheter Indwelling Catheter Indwelling Catheter # Bowel Movements 2 5 1 - Labs CBC & Chem 7: 07/20/24 03:57 07/22/24 03:30 Labs: Abnormal Lab Results - Last 24 Hours (Table) 07/18/24 07/22/24 07/22/24 Range/Units 03:48 03:30 03:30 Chloride 116 H (98-107) mmol/L Carbon Dioxide 16 L (22-30) mmol/L AST 42 H (14-36) U/L Ammonia 67 H (<30) umol/L Total Protein 5.4 L (6.3-8.2) g/dL Albumin 2.3 L (3.5-5.0) g/dL Albumin (PEP) 2.46 L (3.80-4.90) g/dL Ourxa-5-Jpkktedek 0.54 L (0.60-1.00) g/dL Microbiology - Last 24 Hours (Table) 07/20/24 16:15 Urine Culture - Preliminary Urine,Clean Catch 07/18/24 03:48 Blood Culture - Preliminary Blood
--- NOTE | 2024-07-22 10:57 | P.PN ---
Subjective Patient is seen in follow-up for acute kidney injury. Renal function at baseline. Having loose bowel movements. Vital signs are stable. General: No acute distress. HEENT: Head exam is unremarkable. On room air. LUNGS: No audible rhonchi or wheezes. HEART: Rate and Rhythm are regular. ABDOMEN: Obese. Right flank tenderness. EXTREMITITES: No edema. Objective - Vital Signs Vital signs: Vital Signs Temp 98.5 F 07/22/24 07:05 Pulse 84 07/22/24 07:05 Resp 17 07/22/24 08:45 BP 119/77 07/22/24 07:05 Pulse Ox 99 07/22/24 07:05 FiO2 Intake & Output 07/21/24 07/22/24 07/22/24 18:59 06:59 18:59 Intake Total 500 2160 200 Output Total 1775 Balance 500 385 200 Intake: Oral 500 2160 200 Output: Urine 1775 Other: Voiding Method Indwelling Catheter Indwelling Catheter Indwelling Catheter # Bowel Movements 2 5 1 - Labs CBC & Chem 7: 07/20/24 03:57 07/22/24 03:30 Labs: Abnormal Lab Results - Last 24 Hours (Table) 07/18/24 07/22/24 07/22/24 Range/Units 03:48 03:30 03:30 Chloride 116 H (98-107) mmol/L Carbon Dioxide 16 L (22-30) mmol/L AST 42 H (14-36) U/L Ammonia 67 H (<30) umol/L Total Protein 5.4 L (6.3-8.2) g/dL Albumin 2.3 L (3.5-5.0) g/dL Albumin (PEP) 2.46 L (3.80-4.90) g/dL Wrwsb-4-Ygxwqpgfj 0.54 L (0.60-1.00) g/dL Microbiology - Last 24 Hours (Table) 07/20/24 16:15 Urine Culture - Preliminary Urine,Clean Catch 07/18/24 03:48 Blood Culture - Preliminary Blood Assessment and Plan Plan: Assessment: 1. Acute kidney injury secondary to vasomotor nephropathy. Resolved. No hydronephrosis noted on CAT scan. 2. UTI with sepsis. On antibiotics. 3. Nephrolithiasis with staghorn calculi. Urology following. 4. Benign hypertension. Controlled. 5. Metabolic acidosis secondary to IV fluids and GI losses. Plan: Hep-Lock IV fluids. 2 amp sodium bicarb IV push today. Add oral bicarb. Encouraged oral intake. Avoid nephrotoxins. Repeat labs in the morning. Potential right percutaneous nephrolithotomy at [facility] in the near future.
[2024-07-22] MEDS: SODIUM BICARB 8.4% 50 ML SYR (1 MEQ/ML) IV STA (11:20)
[2024-07-22] MEDS: SODIUM BICARBONATE TAB 650 MG TAB PO SCH (11:28)
--- NOTE | 2024-07-22 13:50 | P.PN ---
Subjective Progress Note Date: 07/21/24 Principal diagnosis: Reason for follow-up is a UTI Patient is a 54-year-old female with a past medical history significant for hypertension obesity obstructive sleep apnea peptic ulcer disease, staghorn calculus and history of recurrent UTI patient has been brought to the hospital by the concerning for mental status changes and right flank pain with concern for possible UTI prompting this consultation. On today's evaluation that is 07/21/2024, patient has been afebrile, patient is breathing comfortably and is currently on room air, patient denies having any significant cough no chest pain, patient denies nausea vomiting however still complaining of significant lower abdominal pain. Patient repeat UA significantly positive with cultures pending Objective - Vital Signs Vital signs: Vital Signs Temp 97.7 F 07/21/24 14:00 Pulse 87 07/21/24 14:00 Resp 18 07/21/24 14:00 BP 122/55 07/21/24 14:00 Pulse Ox 98 07/21/24 14:00 FiO2 Intake & Output 07/20/24 07/21/24 07/21/24 18:59 06:59 18:59 Intake Total 900 200 Output Total 1500 1650 Balance -1500 -750 200 Intake: Intake, IV Titration 900 Amount Sodium Chloride 0.9% 1, 900 000 ml @ 75 mls/hr IV . [id number] [facility] Rx#:[id number] Oral 200 Output: Urine 1500 1650 Other: Voiding Method Indwelling Catheter Indwelling Catheter Indwelling Catheter # Bowel Movements 1 3 - Exam GENERAL DESCRIPTION: Middle-age female lying in bed in no distress RESPIRATORY SYSTEM: Unlabored breathing , decreased breath sounds at bases HEART: S1 S2 regular rate and rhythm , ABDOMEN: Soft , no tenderness EXTREMITIES: No edema feet - Labs CBC & Chem 7: 07/20/24 03:57 07/22/24 03:30 Labs: Microbiology - Last 24 Hours (Table) 07/20/24 16:15 Urine Culture - Preliminary Urine,Clean Catch 07/18/24 03:48 Blood Culture - Preliminary Blood 07/17/24 20:06 Blood Culture - Preliminary Blood Assessment and Plan (1) Allergy to multiple antibiotics Current Visit: Yes Status: Acute Code(s): Z88.1 - ALLERGY STATUS TO OTHER ANTIBIOTIC AGENTS SNOMED Code(s): 130318831 (2) UTI (urinary tract infection) Current Visit: Yes Status: Acute Code(s): N39.0 - URINARY TRACT INFECTION, SITE NOT SPECIFIED SNOMED Code(s): 02653885 Plan: 1patient presented to hospital with mental status changes also have right flank pain in this patient who did have a large right-sided kidney stone but no evidence of any hydronephrosis significantly positive UA concerning for complicated UTI likely from to the gram-negative pathogen 2-patient with multiple antibiotic ALLERGIES that would limit the number of antibiotic safe to use 3-patient still complaining of pain in the lower abdominal area repeat urine is still positive cultures are currently pending Dictation was produced using [employer] software. please excuse any grammatical, word or spelling errors. Time with Patient: Less than 30
--- NOTE | 2024-07-22 13:51 | P.PN ---
Subjective Progress Note Date: 07/22/24 Principal diagnosis: Reason for follow-up is a UTI Patient is a 54-year-old female with a past medical history significant for hypertension obesity obstructive sleep apnea peptic ulcer disease, staghorn calculus and history of recurrent UTI patient has been brought to the hospital by the concerning for mental status changes and right flank pain with concern for possible UTI prompting this consultation. On today's evaluation that is 07/22/2024, Patient is afebrile this morning patient denies having any chest pain shortness of breath or cough, the patient i s currently on room air, patient still complaining of lower abdominal pain did have diarrhea but no nausea no vomiting. No CBC was done today creatinine 0.69 Objective - Vital Signs Vital signs: Vital Signs Temp 98.5 F 07/22/24 07:05 Pulse 84 07/22/24 07:05 Resp 17 07/22/24 08:45 BP 119/77 07/22/24 07:05 Pulse Ox 99 07/22/24 07:05 FiO2 Intake & Output 07/21/24 07/22/24 07/22/24 18:59 06:59 18:59 Intake Total 500 2160 200 Output Total 1775 Balance 500 385 200 Intake: Oral 500 2160 200 Output: Urine 1775 Other: Voiding Method Indwelling Catheter Indwelling Catheter Indwelling Catheter # Bowel Movements 2 5 1 - Exam GENERAL DESCRIPTION: Middle-age female lying in bed in no distress RESPIRATORY SYSTEM: Unlabored breathing , decreased breath sounds at bases HEART: S1 S2 regular rate and rhythm , ABDOMEN: Soft , no tenderness EXTREMITIES: No edema feet - Labs CBC & Chem 7: 07/20/24 03:57 07/22/24 03:30 Labs: Abnormal Lab Results - Last 24 Hours (Table) 07/18/24 07/22/24 07/22/24 Range/Units 03:48 03:30 03:30 Chloride 116 H (98-107) mmol/L Carbon Dioxide 16 L (22-30) mmol/L AST 42 H (14-36) U/L Ammonia 67 H (<30) umol/L Total Protein 5.4 L (6.3-8.2) g/dL Albumin 2.3 L (3.5-5.0) g/dL Albumin (PEP) 2.46 L (3.80-4.90) g/dL Mnchk-1-Blilzzwyi 0.54 L (0.60-1.00) g/dL Microbiology - Last 24 Hours (Table) 07/20/24 16:15 Urine Culture - Preliminary Urine,Clean Catch 07/18/24 03:48 Blood Culture - Preliminary Blood Assessment and Plan (1) Allergy to multiple antibiotics Current Visit: Yes Status: Acute Code(s): Z88.1 - ALLERGY STATUS TO OTHER ANTIBIOTIC AGENTS SNOMED Code(s): 627112076 (2) UTI (urinary tract infection) Current Visit: Yes Status: Acute Code(s): N39.0 - URINARY TRACT INFECTION, SITE NOT SPECIFIED SNOMED Code(s): 48487857 Plan: 1patient presented to hospital with mental status changes also have right flank pain in this patient who did have a large right-sided kidney stone but no evidence of any hydronephrosis significantly positive UA concerning for complicated UTI likely from to the gram-negative pathogen 2-patient with multiple antibiotic ALLERGIES that would limit the number of antibiotic safe to use 3-patient remains to be afebrile, patient repeat urine is still positive cultures are currently pending continue with Rocephin while waiting for the culture to finalize Dictation was produced using [employer] dictation software. please excuse any grammatical, word or spelling errors. Time with Patient: Less than 30
--- NOTE | 2024-07-22 14:08 | P.PN ---
Subjective Progress Note Date: 07/22/24 The patient is in the hospital with flank pain on the right side and a urinary tract infection. She has a known struvite staghorn calculus. I saw her originally but due to her morbid obesity and her multiple medical morbidities I referred her to [facility] for a right percutaneous nephrostolithotomy. She was scheduled and had to have it rescheduled and the surgery is still pending. She is feeling a little better with the antibiotics. Cultures are pending. Objective - Vital Signs Vital signs: Vital Signs Temp 98.5 F 07/22/24 13:55 Pulse 78 07/22/24 13:55 Resp 17 07/22/24 13:55 BP 118/62 07/22/24 13:55 Pulse Ox 97 07/22/24 13:55 FiO2 Intake & Output 07/21/24 07/22/24 07/22/24 18:59 06:59 18:59 Intake Total 500 2160 400 Output Total 1775 Balance 500 385 400 Intake: Oral 500 2160 400 Output: Urine 1775 Other: Voiding Method Indwelling Catheter Indwelling Catheter Indwelling Catheter # Bowel Movements 2 5 1 - Labs CBC & Chem 7: 07/20/24 03:57 07/22/24 03:30 Labs: Abnormal Lab Results - Last 24 Hours (Table) 07/18/24 07/22/24 07/22/24 Range/Units 03:48 03:30 03:30 Chloride 116 H (98-107) mmol/L Carbon Dioxide 16 L (22-30) mmol/L AST 42 H (14-36) U/L Ammonia 67 H (<30) umol/L Total Protein 5.4 L (6.3-8.2) g/dL Albumin 2.3 L (3.5-5.0) g/dL Albumin (PEP) 2.46 L (3.80-4.90) g/dL Cnuol-6-Ktnozgrpo 0.54 L (0.60-1.00) g/dL Microbiology - Last 24 Hours (Table) 07/20/24 16:15 Urine Culture - Preliminary Urine,Clean Catch 07/18/24 03:48 Blood Culture - Preliminary Blood Assessment and Plan Assessment: Impression: Infected right staghorn calculus with colic Recommendations: Continue with antibiotics. The patient should follow-up with [facility] for surgical removal of the stone.
[2024-07-22 15:54] LABS: Basophils # (A) 0.08 X 10*3/uL (0.00-0.10); Basophils % (A) 1.4 %; Eosinophils # (A) 0.47 X 10*3/uL (0.04-0.35); Eosinophils % (A) 8.1 %; HCT 28.9 % (37.2-46.3); HGB 9.5 g/dL (12.0-15.0); Lymphocytes # (A) 1.18 X 10*3/uL (0.90-5.00); Lymphocytes % (A) 20.5 %; MCH 32.5 pg (27.0-32.0); MCHC 32.9 g/dL (32.0-37.0); Mean Platelet Volume 12.5 FL (9.5-12.2); Monocytes # (A) 0.65 X 10*3/uL (0.20-1.00); Monocytes % (A) 11.3 %; NRBC Per 100 WBC 0.02 X 10*3/uL (0.00-0.01); Neutrophils # (A) 3.38 X 10*3/uL (1.80-7.70); Neutrophils % (A) 58.5 %; Platelet Count 144 X 10*3/uL (140-440); RBC 2.92 X 10*6/uL (4.10-5.20); WBC 5.77 X 10*3/uL (4.50-10.00)
[2024-07-23 07:54] VITALS: RESP 17
[2024-07-23 08:48] LABS: BUN/Creat Ratio 10.75 Ratio (12.00-20.00); Blood Urea Nitrogen 8.6 mg/dL (9.0-27.0); Chloride 114 mmol/L (96-109); Glucose 98 mg/dL (70-110); Potassium 3.7 mmol/L (3.5-5.5); Sodium 140 mmol/L (135-145)
[2024-07-23 08:49] LABS: Carbon Dioxide 20.8 mmol/L (21.6-31.8); Magnesium 1.6 mg/dL (1.5-2.4)
--- NOTE | 2024-07-23 11:04 | P.PN ---
Subjective Patient is seen in follow-up for acute kidney injury. Renal function at baseline. Oral intake is good. No active complaints. Feels that she is s juan. Vital signs are stable. General: No acute distress. HEENT: Head exam is unremarkable. On room air. LUNGS: No audible rhonchi or wheezes. HEART: Rate and Rhythm are regular. ABDOMEN: Obese. EXTREMITITES: No edema. Objective - Vital Signs Vital signs: Vital Signs Temp 98.5 F 07/23/24 07:25 Pulse 66 07/23/24 07:25 Resp 17 07/23/24 07:25 BP 94/57 07/23/24 07:25 Pulse Ox 96 07/23/24 07:25 FiO2 Intake & Output 07/22/24 07/23/24 07/23/24 18:59 06:59 18:59 Intake Total 800 Output Total 900 1125 Balance -100 -1125 Intake: Oral 800 Output: Urine 900 1125 Uretheral (Diaz) 1125 Other: Voiding Method Indwelling Catheter Indwelling Catheter # Bowel Movements 5 - Labs CBC & Chem 7: 07/22/24 08:50 07/23/24 03:50 Labs: Abnormal Lab Results - Last 24 Hours (Table) 07/22/24 07/23/24 Range/Units 08:50 03:50 RBC 2.92 L (4.10-5.20) X 10*6/uL Hgb 9.5 L (12.0-15.0) g/dL Hct 28.9 L (37.2-46.3) % MCV 99.0 H (80.0-97.0) FL MCH 32.5 H (27.0-32.0) pg MPV 12.5 H (9.5-12.2) FL Eosinophils # 0.47 H (0.04-0.35) X 10*3/uL NRBC/100 WBC Diff 0.02 H (0.00-0.01) X 10*3/uL Chloride 114 H (96-109) mmol/L Carbon Dioxide 20.8 L (21.6-31.8) mmol/L BUN 8.6 L (9.0-27.0) mg/dL BUN/Creatinine Ratio 10.75 L (12.00-20.00) Ratio Microbiology - Last 24 Hours (Table) 07/17/24 20:06 Blood Culture - Final Blood 07/20/24 16:15 Urine Culture - Final Urine,Clean Catch Johanna albicans Assessment and Plan Plan: Assessment: 1. Acute kidney injury secondary to vasomotor nephropathy. Resolved. No hydronephrosis noted on CAT scan. 2. UTI with sepsis. On antibiotics. 3. Nephrolithiasis with staghorn calculi. Urology following. 4. Benign hypertension. Blood pressure on the lower end. 5. Metabolic acidosis secondary to IV fluids and GI losses. On oral bicarb. Better. 6. Mild volume overload. Plan: Decrease dose of losartan to 50 mg. Add Lasix 20 mg orally once daily. Add oral magnesium oxide. Encouraged oral intake. Avoid nephrotoxins. Repeat labs in the morning. Potential right percutaneous nephrolithotomy at [facility] in the near future.
[2024-07-23] MEDS: FUROSEMIDE 20 MG TAB PO SCH (12:13)
[2024-07-23] MEDS: MAGNESIUM OXIDE 400 MG TAB PO SCH (12:13)
[2024-07-23 14:44] VITALS: BP 99/57; PULSE 77; TEMP 98.6
--- NOTE | 2024-07-23 15:00 | P.PN ---
Subjective Progress Note Date: 07/23/24 HISTORY OF PRESENT ILLNESS: Interval History: This is a 54-year-old female with a previous medical history significant for hypertension and hypertensive cardiovascular disease, history of obesity with obstructive sleep apnea and obesity hypoventilation syndrome (pickwickian syndrom), history of peptic ulcer disease status post EGD 06/05/2020 with Endo Clip and gold probe ablation, history of schwannoma of the left brachial praxis status post surgical intervention that resulted in chronic regional pain syndrome [reflex sympathetic dystrophy, history of liver cirrhosis patient has been cared for by Dr. Rodgers. Patient's is the primary caregiver for her and she is wheelchair-bound and bedbound, not ambulatory at all. Patient presented to the emergency department at [facility] because of mental status changes according to her that started over the last few days, patient is known to have a staghorn calculus of the right kidney by 2.9 cm with bilateral renal calculi for which she was supposed to follow-up with a urologist at [facility] for surgical intervention that has been postponed from May till July I believe patient has been getting pulsed therapy with Keflex to prevent recurrent urinary tract infection, apparently patient was brought into the ER for evaluation she was found to have UTI, and her ammonia level was elevated 140, she was started back on ceftriaxone 2 g piggyback every 24 hours, infectious disease consultation, she was also started on lactulose 20 g orally 3 times every day as well as Xifaxan 550 mg orally twice every day ammonia level will be repeated next 24 hours, infectious disease consultation along with urology consultation was obtained. 07/19--patient was seen and examined today. Complains of dysuria, right flank pain. Vitals unremarkable, remained afebrile. Urine culture and blood culture negative. WBCs 5.8, hemoglobin 9.0, platelet 141. Creatinine 1.4. Infectious disease and urology following. Neurology recommended follow-up at [facility] for nephrolithotomy. Will consult nephrology. 07/20--patient was seen and examined today. Continues complain of back pain, body aches. Afebrile, heart rate 81, respiratory rate 18, blood pressure 126/82, saturating 98% on room air. Blood culture and urine culture remain negative. Nephrology evaluated the patient. Creatinine improved to 0.9 today. Urology recommended to hold losartan until discharge, DC IV fluids, no further workup. Urology recommended to continue antibiotics empirically due to high risk of recurrent UTIs and recommended outpatient follow-up at [facility] for right percutaneous nephrolithotomy. Patient remains on Rocephin. Infectious disease following. 07/21: Patient is laying down in bed in no apparent distress, she was seen earlier by nephrology as well as by ID, along with urology who recommended for the patient to follow-up with urology at [facility] for surgical intervention of the staghorn calculus in the right kidney, patient does have multiple allergies to antibiotic, it was recommended to continue ceftriaxone for now until further evaluation, patient is doing better, and she has no chest pain at this time is no shortness of breath, she has no abdominal pain, nausea vomiting or diarrhea, she continues to be on lactulose for her encephalopathy as well as Xifaxan 550 mg orally twice every day we will follow-up with the patient very closely hopefully will discharge the patient home in the next 24 hours. 07/22: Patient continues to have loose stool, ammonia level is down to 67, more awake and more alert today, she continues to have pain in the right flank area, her laboratory evaluation showed evidence of none anion gap antibiotic acidosis due to diarrhea, discontinue IV fluid completely, encourage oral intake of fluid, continue IV antibiotic, await final decision by infectious disease for the patient to go home on oral antibiotic, follow-up with the patient very clos gayla. Patient will need to have nephrolithotomy at [facility] this will be done as an outpatient no hospital to hospital transfer at this point in time. 07/23: Patient sitting up in bed in no apparent distress, she is doing a lot better today, she denies any chest pain, shortness of breath, she has no abdominal pain, she is back awake and alert and oriented again, will discontinue Rocephin, she was started on Diflucan 200 mg orally once every day for the next 7 days, I will discharge the patient home today follow-up with me as an outpatient next week. REVIEW OF SYSTEMS: Constitutional: Positive for documented fever, positive for chills, no night sweats. No weight change. Positive for weakness, fatigue or lethargy. No daytime sleepiness. EENT: headache. No blurred vision or double vision, no loss of vision. No loss of Hearing, no ringing in the ears, no dizziness. No nasal drainage or congestion. No epistaxis. No sore throat. Lungs: No shortness of breath, no cough, no sputum production. No wheezing. Reports dyspnea with activity. Cardiovascular: No chest pain, no lower extremity edema. No palpitations. No paroxysmal nocturnal dyspnea. No orthopnea. No lightheadedness or dizziness. No syncopal episodes. Abdominal: Reports abdominal pain. positive for nausea, vomiting. No diarrhea. Positive for constipation. No bloody or tarry stools reports loss of appetite. Genitourinary: No dysuria, increased frequency, urgency. No urinary retention. Musculoskeletal: No myalgias. No muscle weakness, positive for gait dysfunction, no frequent falls. No back pain. No neck pain.left arm pain Integumentary: No wounds, no lesions. No rash or pruritus. No unusual bruising. No change in hair or nails. Neurologic: No aphasia. No facial droop. Positive for change in mentation. No head injury. No headache. No paralysis. No paresthesia. Psychiatric: Positive for depression. positive for anxiety. No mood swings. Endocrine: No abnormal blood sugars. No weight change. PHYSICAL EXAMINATION: General: 54-year-old female laying down in bed in no apparent distress HEENT: Head is atraumatic, normocephalic, pupils were equal round reactive to light and recommendation, extraocular muscle movement were intact, sclera nonicteric, conjunctivae were pale, mucous membranes of the mouth are somewhat dry. Neck: Supple, no JVP, normal carotid upstroke bilaterally, no lymphadenopathy. Chest: Decreased breath sounds at the bases, few rhonchi, no expiratory wheezes, no chest wall tenderness, no intercostal retractions. Heart: First heart sound is normal, second heart sound is normal there is systolic ejection murmur 2/6 located in the left sternal border. Abdomen: Soft, mild right upper quadrant tenderness, nondistended, positive bowel sounds. Extremities: There is no edema no calf tenderness DP +2 bilaterally. Neurologic examination: Patient is awake alert and oriented x3 , cranial nerves II-12 appear grossly intact, muscle power were 5 out of 5 in right upper extremity 3 out of 5 in the left upper extremity and 3 out of 5 in bilateral lower extremities, deep tendon reflexes normal bilaterally. ASSESSMENT AND PLAN: 1. Right staghorn calculus with bilateral renal calculi and recurrent UTI with SIRS. Repeated urine culture did not show evidence of any acute abnormalities it did show evidence of Johanna albicans patient was switched to oral Diflucan 200 mg once every day for the next 7 days. 2. Acute kidney injury due to prerenal azotemia. Resolved. 3. 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 Resolved. 4. Acute kidney injury due to acute tubular necrosis. Resolved. 5. None anion gap metabolic acidosis likely related to diarrhea. Resolved. 6. Anemia of chronic disease. Stable. 7. Hypertension and hypertensive cardiovascular disease. 8. Hypothyroidism. 9. Mixed hyperlipidemia 10. Anxiety disorder. 11. Obesity with obstructive sleep apnea and obesity hypoventilation syndrome [pickwickian syndrome]. 12. History of peptic ulcer disease. 13. Bilateral kidney stones. 14. history of pulmonary nodules about 7 mm need to be evaluated as an outpatient. 15. constipation. Objective - Vital Signs Vital signs: Vital Signs Temp 98.5 F 07/23/24 07:25 Pulse 66 07/23/24 07:25 Resp 17 07/23/24 07:25 BP 94/57 07/23/24 07:25 Pulse Ox 96 07/23/24 07:25 FiO2 Intake & Output 07/22/24 07/23/24 07/23/24 18:59 06:59 18:59 Intake Total 800 Output Total 900 1125 Balance -100 -1125 Intake: Oral 800 Output: Urine 900 1125 Uretheral (Diaz) 1125 Other: Voiding Method Indwelling Catheter Indwelling Catheter Indwelling Catheter # Bowel Movements 5 - Labs CBC & Chem 7: 07/22/24 08:50 07/23/24 03:50 Labs: Abnormal Lab Results - Last 24 Hours (Table) 07/22/24 07/23/24 Range/Units 08:50 03:50 RBC 2.92 L (4.10-5.20) X 10*6/uL Hgb 9.5 L (12.0-15.0) g/dL Hct 28.9 L (37.2-46.3) % MCV 99.0 H (80.0-97.0) FL MCH 32.5 H (27.0-32.0) pg MPV 12.5 H (9.5-12.2) FL Eosinophils # 0.47 H (0.04-0.35) X 10*3/uL NRBC/100 WBC Diff 0.02 H (0.00-0.01) X 10*3/uL Chloride 114 H (96-109) mmol/L Carbon Dioxide 20.8 L (21.6-31.8) mmol/L BUN 8.6 L (9.0-27.0) mg/dL BUN/Creatinine Ratio 10.75 L (12.00-20.00) Ratio Microbiology - Last 24 Hours (Table) 07/18/24 03:48 Blood Culture - Final Blood 07/17/24 20:06 Blood Culture - Final Blood 07/20/24 16:15 Urine Culture - Final Urine,Clean Catch Johanna albicans
--- NOTE | 2024-07-23 15:01 | P.DS ---
Providers Date of admission: 07/17/24 20:12 Expected date of discharge: 07/23/24 Attending physician: Erma Nieto Consults: 07/17/24 20:07 Consult Physician Routine Consulting Provider: Bala Horan Consult Reason/Comments: uti Do you want consulting provider notified?: Yes, Notify in am Consult Physician Routine Consulting Provider: Zac Peng Consult Reason/Comments: uti Do you want consulting provider notified?: Yes, Notify in am 07/19/24 14:34 Consult Physician Routine Consulting Provider: Elena Caldwell Consult Reason/Comments: TL Do you want consulting provider notified?: Yes Primary care physician: Erma Nieto [facility] Course: HISTORY OF PRESENT ILLNESS: Interval History: This is a 54-year-old female with a previous medical history significant for hypertension and hypertensive cardiovascular disease, history of obesity with obstructive sleep apnea and obesity hypoventilation syndrome (pickwickian syndrom), history of peptic ulcer disease status post EGD 06/05/2020 with Endo Clip and gold probe ablation, history of schwannoma of the left brachial praxis status post surgical intervention that resulted in chronic regional pain syndrome [reflex sympathetic dystrophy, history of liver cirrhosis patient has been cared for by Dr. Rodgers. Patient's is the primary caregiver for her and she is wheelchair-bound and bedbound, not ambulatory at all. Patient presented to the emergency department at [facility] because of mental status changes according to her that started over the last few days, patient is known to have a staghorn calculus of the right kidney by 2.9 cm with bilateral renal calculi for which she was supposed to follow-up with a urologist at [facility] for surgical intervention that has been postponed from May till July I believe patient has been getting pulsed therapy with Keflex to prevent recurrent urinary tract infection, apparently patient was brought into the ER for evaluation she was found to have UTI, and her ammonia level was elevated 140, she was started back on ceftriaxone 2 g piggyback every 24 hours, infectious disease consultation, she was also started on lactulose 20 g orally 3 times every day as well as Xifaxan 550 mg orally twice every day ammonia level will be repeated next 24 hours, infectious disease consultation along with urology consultation was obtained. 07/19--patient was seen and examined today. Complains of dysuria, right flank pain. Vitals unremarkable, remained afebrile. Urine culture and blood culture negative. WBCs 5.8, hemoglobin 9.0, platelet 141. Creatinine 1.4. Infectious disease and urology following. Neurology recommended follow-up at [facility] for nephrolithotomy. Will consult nephrology. 07/20--patient was seen and examined today. Continues complain of back pain, body aches. Afebrile, heart rate 81, respiratory rate 18, blood pressure 126/82, saturating 98% on room air. Blood culture and urine culture remain negative. Nephrology evaluated the patient. Creatinine improved to 0.9 today. Urology recommended to hold losartan until discharge, DC IV fluids, no further workup. Urology recommended to continue antibiotics empirically due to high risk of recurrent UTIs and recommended outpatient follow-up at [facility] for right percutaneous nephrolithotomy. Patient remains on Rocephin. Infectious disease following. 07/21: Patient is laying down in bed in no apparent distress, she was seen earlier by nephrology as well as by ID, along with urology who recommended for the patient to follow-up with urology at [facility] for surgical intervention of the staghorn calculus in the right kidney, patient does have multiple allergies to antibiotic, it was recommended to continue ceftriaxone for now until further evaluation, patient is doing better, and she has no chest pain at this time is no shortness of breath, she has no abdominal pain, nausea vomiting or diarrhea, she continues to be on lactulose for her encephalopathy as well as Xifaxan 550 mg orally twice every day we will follow-up with the patient very closely hopefully will discharge the patient home in the next 24 h ours. 07/22: Patient continues to have loose stool, ammonia level is down to 67, more awake and more alert today, she continues to have pain in the right flank area, her laboratory evaluation showed evidence of none anion gap antibiotic acidosis due to diarrhea, discontinue IV fluid completely, encourage oral intake of fluid, continue IV antibiotic, await final decision by infectious disease for t he patient to go home on oral antibiotic, follow-up with the patient very closely. Patient will need to have nephrolithotomy at [facility] this will be done as an outpatient no hospital to hospital transfer at this point in time. 07/23: Patient sitting up in bed in no apparent distress, she is doing a lot better today, she denies any chest pain, shortness of breath, she has no abdominal pain, she is back awake and alert and oriented again, will discontinue Rocephin, she was started on Diflucan 200 mg orally once every day for the next 7 days, I will discharge the patient home today follow-up with me as an outpatient next week. Discharge diagnoses: 1. Right staghorn calculus with bilateral renal calculi and recurrent UTI with SIRS. Repeated urine culture did not show evidence of any acute abnormalities it did show evidence of Johanna albicans patient was switched to oral Diflucan 200 mg once every day for the next 7 days. 2. Acute kidney injury due to prerenal azotemia. Resolved. 3. 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 Resolved. 4. Acute kidney injury due to acute tubular necrosis. Resolved. 5. None anion gap metabolic acidosis likely related to diarrhea. Resolved. 6. Anemia of chronic disease. Stable. 7. Hypertension and hypertensive cardiovascular disease. 8. Hypothyroidism. 9. Mixed hyperlipidemia 10. Anxiety disorder. 11. Obesity with obstructive sleep apnea and obesity hypoventilation syndrome [pickwickian syndrome]. 12. History of peptic ulcer disease. 13. Bilateral kidney stones. 14. history of pulmonary nodules about 7 mm need to be evaluated as an outpatient. 15. constipation. Patient Condition at Discharge: Stable Plan - Discharge Summary Discharge Rx Participant: No New Discharge Prescriptions: No Action Mirtazapine [Remeron] 15 mg PO HS #30 tablet Levothyroxine Sodium [Synthroid] 50 mcg PO DAILY Morphine Sulfate ER [Ms Contin] 60 mg PO Q12HR #6 tab buPROPion SR [Wellbutrin SR] 100 mg PO DAILY Metoprolol Tartrate [Lopressor] 25 mg PO BID Losartan Potassium [Cozaar] 100 mg PO HS Multivitamins, Thera [Multivitamin (formulary)] 1 tab PO DAILY Cyclobenzaprine [Flexeril] 10 mg PO TID PRN PRN Reason: Muscle Spasm Ascorbic Acid [Vitamin C] 1,000 mg PO DAILY Lactulose [Cephulac] 20 gm PO BID Cephalexin [Keflex] 500 mg PO Q8HR Calcium Carbonate [Calcium] 600 mg PO DAILY ALPRAZolam [Xanax] 0.25 mg PO BID PRN PRN Reason: Anxiety buPROPion SR [Wellbutrin SR] 200 mg PO HS Morphine Sulfate Ir [MSIR] 15 mg PO BID PRN PRN Reason: Breakthrough Pain Discharge Medication List Mirtazapine [Remeron] 15 mg PO HS #30 tablet 07/28/16 [Rx] Levothyroxine Sodium [Synthroid] 50 mcg PO DAILY 06/04/20 [History] Morphine Sulfate ER [Ms Contin] 60 mg PO Q12HR #6 tab 06/10/20 [Rx] Morphine Sulfate Ir [MSIR] 15 mg PO BID PRN 08/31/23 [History] buPROPion SR [Wellbutrin SR] 100 mg PO DAILY 08/31/23 [History] buPROPion SR [Wellbutrin SR] 200 mg PO HS 08/31/23 [History] Losartan Potassium [Cozaar] 100 mg PO HS 03/25/24 [History] Metoprolol Tartrate [Lopressor] 25 mg PO BID 03/25/24 [History] ALPRAZolam [Xanax] 0.25 mg PO BID PRN 07/17/24 [History] Ascorbic Acid [Vitamin C] 1,000 mg PO DAILY 07/17/24 [History] Calcium Carbonate [Calcium] 600 mg PO DAILY 07/17/24 [History] Cephalexin [Keflex] 500 mg PO Q8HR 07/17/24 [History] Cyclobenzaprine [Flexeril] 10 mg PO TID PRN 07/17/24 [History] Lactulose [Cephulac] 20 gm PO BID 07/17/24 [History] Multivitamins, Thera [Multivitamin (formulary)] 1 tab PO DAILY 07/17/24 [History] Follow up Appointment(s)/Referral(s): Erma Nieto MD [Primary Care Provider] - 1-2 days [facility], [NON-STAFF] - As Needed ([facility] will call you to schedule your in home nursing visits. )
[2024-07-23] MEDS: FLUCONAZOLE 100 MG TAB PO SCH (16:22)
[2024-07-23] MEDS ORDERED: LOSARTAN 50 MG TAB PO SCH (21:00)
--- NOTE | 2024-07-24 08:39 | P.PN ---
Subjective Progress Note Date: 07/23/24 Principal diagnosis: Reason for follow-up is a UTI Patient is a 54-year-old female with a past medical history significant for hypertension obesity obstructive sleep apnea peptic ulcer disease, staghorn calculus and history of recurrent UTI patient has been brought to the hospital by the concerning for mental status changes and right flank pain with concern for possible UTI prompting this consultation. On today's evaluation that is 07/23/2024,the patient continues to be afebrile the patient is breathing comfortably currently on room air patient does not seem in distress sleepy no vomit diarrhea any worsening symptoms reported by the nursing staff. Patient did have a creatinine 0.8 urine is growing Johanna Objective - Vital Signs Vital signs: Vital Signs Temp 98.5 F 07/23/24 07:25 Pulse 66 07/23/24 07:25 Resp 17 07/23/24 07:25 BP 94/57 07/23/24 07:25 Pulse Ox 96 07/23/24 07:25 FiO2 Intake & Output 07/22/24 07/23/24 07/23/24 18:59 06:59 18:59 Intake Total 800 Output Total 900 1125 Balance -100 -1125 Intake: Oral 800 Output: Urine 900 1125 Uretheral (Diaz) 1125 Other: Voiding Method Indwelling Catheter Indwelling Catheter Indwelling Catheter # Bowel Movements 5 - Exam Middle-age female lying in bed in no distress Unlabored breathing - Labs CBC & Chem 7: 07/22/24 08:50 07/23/24 03:50 Labs: Abnormal Lab Results - Last 24 Hours (Table) 07/22/24 07/23/24 Range/Units 08:50 03:50 RBC 2.92 L (4.10-5.20) X 10*6/uL Hgb 9.5 L (12.0-15.0) g/dL Hct 28.9 L (37.2-46.3) % MCV 99.0 H (80.0-97.0) FL MCH 32.5 H (27.0-32.0) pg MPV 12.5 H (9.5-12.2) FL Eosinophils # 0.47 H (0.04-0.35) X 10*3/uL NRBC/100 WBC Diff 0.02 H (0.00-0.01) X 10*3/uL Chloride 114 H (96-109) mmol/L Carbon Dioxide 20.8 L (21.6-31.8) mmol/L BUN 8.6 L (9.0-27.0) mg/dL BUN/Creatinine Ratio 10.75 L (12.00-20.00) Ratio Microbiology - Last 24 Hours (Table) 07/17/24 20:06 Blood Culture - Final Blood 07/20/24 16:15 Urine Culture - Final Urine,Clean Catch Johanna albicans Assessment and Plan (1) Allergy to multiple antibiotics Status: Acute Code(s): Z88.1 - ALLERGY STATUS TO OTHER ANTIBIOTIC AGENTS SNOMED Code(s): 332015922 (2) UTI (urinary tract infection) Status: Acute Code(s): N39.0 - URINARY TRACT INFECTION, SITE NOT SPECIFIED SNOMED Code(s): 59055085 Plan: 1patient presented to hospital with mental status changes also have right flank pain in this patient who did have a large right-sided kidney stone but no evidence of any hydronephrosis significantly positive UA concerning for complicated UTI likely from to the gram-negative pathogen 2-patient with multiple antibiotic ALLERGIES that would limit the number of antibiotic safe to use 3-patient remains to be afebrile, patient repeat urine is still positive cultures are currently growing Johanna we will discontinue Rocephin give a short course of oral Diflucan Dictation was produced using [employer] dictation software. please excuse any grammatical, word or spelling errors. Time with Patient: Less than 30
--- NOTE | 2024-07-24 13:16 | CDI ---
Documentation Clarification Form Date: 07/24/2024 12:09:05 PM From: Jemma Ruiz RN, CCDS Phone: [phone] Admit Date: 07/17/2024 08:12:00 PM Patient Name: Nati Loaiza Visit Number: [id number] Discharge Date: 07/23/2024 04:31:00 PM ATTENTION: The Clinical Documentation Specialists (CDI) and [facility] Coding Staff appreciate your assistance in clarifying documentation. Please respond to the clarification below the line at the bottom and electronically sign. The CDI & [facility] Coding staff will review the response and follow-up if needed. Please note: Queries are made part of the Legal Health Record. If you have any questions, please contact the author of this message via ITS. DoctorAmparo Nieto UTI with sepsis documented in the Nephrology progress notes starting on 07/20/24 which may lack sufficient clinical evidence/support in the medical record. Additional clarification is requested. 07/18 attending: Right staghorn calculus with bilateral renal calculi and recurrent UTI with SIRS. History/Risk Factors: Asthma, COPD, Pickwickian syndrome, kidney stones, pancreatitis, morbid obesity, Former smoker Clinical Indicators: 54-year-old female presented to hospital for AMS. Seen by urology and started on ABX for chronic proteus infection for her calculi. 07/17 VS: 112/86 61 18 98.9 94% RA Labs: WBC 6.1, Neutrophils 3.7, BUN 24, Cr 1.39 UA: Leukocyte Esterase-Large WBC >182 07/20 VS (00:27) 128/70 79 17, 99.0 100% RA; Labs: WBC 6.38, Neutrophils 3.39 Cl 114, BUN 10.1, CR 0.9, UA Leukocyte Esterase -Large, WBC >182 124 ID Consult: UTI (urinary tract infection),The patient who did have a large right-sided kidney stone but no evidence of any hydronephrosis significantly positive UA concerning for complicated UTI likely from to the gram-negative pathogen. Treatment: Rocephin 2 GM IVPB Q 12 HRS 0.9% IV@75 ML/HR Please clarify if Sepsis is a valid diagnosis. [ ] No, Sepsis is ruled out [X ] Yes, Sepsis is present on admission as evidence by (additional clinical support): Complicated UTI due to chronic Diaz catheter [ ] Other (please specify diagnosis) [ ] Unable to determine (Template Last Revised: November 2023) MTDD
== END 2024-07-23 16:31 | disposition home health service (06) | DRG 698 ==
LOC: EC 18:04 → 4SSUR 20:12 → EEVIPCON 20:12 → 4SSUR 21:05
PROVIDERS: ADMIT Internal Medicine; ATTEND Internal Medicine
PROC: 05HB33Z Insertion of Infusion Device into Right Basilic Vein, Percutaneous Approach (ICD-10-PCS; principal; 2024-07-22 12:00)
DX: T83.518A Infection and inflammatory reaction due to other urinary catheter, initial encounter (principal); A41.59 Other Gram-negative sepsis; G93.41 Metabolic encephalopathy; N17.0 Acute kidney failure with tubular necrosis; E72.20 Disorder of urea cycle metabolism, unspecified; K76.6 Portal hypertension; E66.2 Morbid (severe) obesity with alveolar hypoventilation; E87.20 Acidosis, unspecified; D63.8 Anemia in other chronic diseases classified elsewhere; K76.82 Hepatic encephalopathy; F32.A Depression, unspecified; J44.89 Other specified chronic obstructive pulmonary disease; I11.9 Hypertensive heart disease without heart failure; E03.9 Hypothyroidism, unspecified; Z68.42 Body mass index [BMI] 45.0-49.9, adult; G90.512 Complex regional pain syndrome I of left upper limb; N39.0 Urinary tract infection, site not specified; M24.522 Contracture, left elbow; M62.522 Muscle wasting and atrophy, not elsewhere classified, left upper arm; N20.0 Calculus of kidney; K74.60 Unspecified cirrhosis of liver; K59.00 Constipation, unspecified; E78.2 Mixed hyperlipidemia; F41.9 Anxiety disorder, unspecified; R19.7 Diarrhea, unspecified; E87.70 Fluid overload, unspecified; B96.4 Proteus (mirabilis) (morganii) as the cause of diseases classified elsewhere; R91.1 Solitary pulmonary nodule; R26.9 Unspecified abnormalities of gait and mobility; Z87.891 Personal history of nicotine dependence; Z86.14 Personal history of Methicillin resistant Staphylococcus aureus infection; Z79.890 Hormone replacement therapy; Z79.899 Other long term (current) drug therapy; Z88.0 Allergy status to penicillin; Z88.6 Allergy status to analgesic agent; Z88.1 Allergy status to other antibiotic agents; Z99.3 Dependence on wheelchair; Z74.01 Bed confinement status
CPT/HCPCS: 36410; 36415; 74176; 76937; 80048; 80053; 81001; 82140; 82150; 82525; 82607; 82746; 83010; 83540; 83550; 83605; 83615; 83690; 83735; 83883; 83921; 84100; 84165; 85025; 85045; 85610; 85730; 87040; 87086; 96361; 96365; 96375; 99285

== ENCOUNTER → 2024-12-02 | Outpatient (CLI) | payer MEDICARE, OTHER ==
--- NOTE | 2024-12-02 13:19 | CA ---
Dobutamine Stress Echocardiogram Report Nati Loaiza Age: 54 Gender: F : 1970 Exam Date: 12/02/2024 11:05 Exam Location: [facility] Ordering Physician: Erma Nieto MD Referring Physician: FERN, Tuber Helper: CLEMENTE POSEY Technologist: Ht (in): 60 Wt (lb): 250 Procedure CPT: Indication: Z01.818 ENCOUNTER FOR OTHER PREPROCEDURAL EXAMINAT ICD-9 Codes: Rhythm: Patient History: HTN, RHEUM FEV, ASTHMA. Cardiac Medications: Medications in past 24 hours: Contrast: Total Dose (mL): Stress Results Protocol: Peak Dose (???g/kg/min): Duration (min:sec): Atropine:(mg) Target HR: 143 Double Product: [id number] Resting HR: 77 Resting BP: 145 / 87 Peak HR: 114 Peak BP: 144 / 77 Max Predicted HR: 168 68 % Max Predicted HR Stress Summary: The patient's target heart rate was not achieved. BP Response: Reason for Termination: MAX DOSE Cardiac Symptoms: NO SYMPTOMS ECG Analysis Resting EKG: Normal sinus rhythm, Minor resting ST/T wave changes Stress EKG: No abnormal ST/T wave changes with exercise Arrhythmia: None Echo Analysis Base Echo Analysis: Normal resting echocardiogram. Low Echo Anaylsis: Normal wall thickening and motion Peak Echo Analysis: Normal wall motion augmentation with no hypokinesis or dyskinesis and decrease in the cavity size Recovery Echo: Normal wall motion MEASUREMENTS (Male/Female) Normal Values CONCLUSIONS 1. Nondiagnostic electrocardiographic dobutamine stress test secondary to the inability to achieve 85% maximum predicted heart rate, at the rate achieved there was no evidence of stress-induced ischemia 2. Nondiagnostic dobutamine stress echocardiogram secondary to the inability to achieve 85% maximum predicted heart rate, at the rate achieved there was no evidence of stress induced ischemia. Dr. Toma Gracia MD (Electronically Signed) Final Date: 02 December 2024 13:18
== END | disposition home or self-care (01) ==
LOC: RADNMMAIN 09:54
PROVIDERS: ATTEND Internal Medicine
DX: Z01.810 Encounter for preprocedural cardiovascular examination (principal); Z01.818 Encounter for other preprocedural examination; I10 Essential (primary) hypertension; J45.909 Unspecified asthma, uncomplicated
CPT/HCPCS: C8930; Q9957; 93351